=== PATIENT | female | born 1970 ===

== ENCOUNTER 2018-09-08 22:36 | Inpatient (IN) ==
[2018-09-08] MEDS ORDERED: Midazolam Inj 5 MG/ML 1 ML Vial ONE (23:03)
[2018-09-08] MEDS ORDERED: Propofol 1000 mg/100 ml Inj 1,000 MG/100 ML BOTTLE ONE (23:06)
[2018-09-08] MEDS: Propofol 1000 mg/100 ml Inj 1,000 MG/100 ML BOTTLE IV.CONT PRN (23:11)
--- NOTE | 2018-09-08 23:20 | XR ---
EXAM DATE: 09/08/2018 11:14 PM EST AGE/SEX: 89 years / Female INDICATIONS: Post intubation. CLINICAL DATA: This is the patient's initial encounter. Patient reports that signs and symptoms have been present for 1 day and indicates a pain score of Nonresponsive. MEDICAL/SURGICAL HISTORY: Non-responsive. Non-responsive. COMPARISON: . FINDINGS: Single AP view the chest. Endotracheal tube is in place with the tip 3 cm above the rich. Nasogastr ic tube is in place and the tip is below the [id number] of the radiograph. Cardiac silhouette is m arkedly enlarged. The lungs are grossly clear. No evidence of pleural effusion or pneumothorax. CONCLUSION: 1. Markedly enlarged cardiac silhouette. 2. Endotracheal tube and nasogastric tube in place. Electronically signed by: Phillip Camarillo MD 09/08/2018 11:18 PM EST
[2018-09-09] MEDS ORDERED: Succinylcholine Inj 200 MG/10 ML Vial IV.PUSH ONE
[2018-09-09] MEDS ORDERED: Propofol 1000 mg/100 ml Inj 1,000 MG/100 ML BOTTLE IV.CONT PRN
[2018-09-09] MEDS ORDERED: Etomidate Inj 20 MG/10 ML Ampul IV.PUSH ONE
[2018-09-09] MEDS ORDERED: Bisacodyl 10 MG Supp RECTAL PRN (00:05)
--- NOTE | 2018-09-09 00:07 | XR ---
EXAM DATE: 09/08/2018 11:59 PM EST AGE/SEX: 89 years / Female INDICATIONS: Central line placement. CLINICAL DATA: This is the patient's subsequent encounter. Patient reports that signs and symptoms h ave been present for 1 day and indicates a pain score of Nonresponsive. MEDICAL/SURGICAL HISTORY: Non-responsive. Non-responsive. COMPARISON: . FINDINGS: Single AP view the chest. Endotracheal tube and nasogastric tube remain in place. Left subclavian manny tral venous catheter now in place with the tip likely at the junction of the right subclavian vein an d brachiocephalic vein. No evidence of pneumothorax. Enlargement of the cardiac silhouette is again n oted. Perihilar opacity in the left upper lung zone may represent prominent pulmonary vasculature or pulmonary consolidation. No evidence of pneumothorax. CONCLUSION: 1. Right subclavian central venous catheter now in place with the tip at the junction of the subclav tisha vein and brachiocephalic vein. 2. No evidence of pneumothorax. 3. Possible left upper lung perihilar consolidation. 4. Persistent cardiac silhouette enlargement. Electronically signed by: Phillip Camarillo MD 09/09/2018 12:06 AM EST
[2018-09-09 00:11] LABS: ABG Base Excess -8.2 mmol/L (-2-2); ABG PCO2 101 mmHg (38-42); ABG PO2 91 mmHg (61-120)
--- NOTE | 2018-09-09 00:14 | P.HPCC ---
History of Present Illness History of Present Illness: Middle-aged morbidly obese female was brought in emergently department by EMS due to respiratory failure and unresponsiveness. She was brought in being bagged by BVM. Patient was a GCS of 3 upon arrival and hence in no condition to give any history. As per EMS the call went out as shortness of breath while patient got into the car. When they arrived she was in severe respiratory distress. They put her on BiPAP but shortly patient started to lose consciousness with agonal respirations. Family was at the scene and informed EMS that she has history of congestive heart failure. Patient was tachycardic upon arrival with heart rate in 170s. It appeared to be irregularly irregular on the monitor. She was immediately intubated by ED attending with improvement in her heart rate. There is no additional history available. Per report, the family admits the patient has been taking a lot of medications but they are unaware of the names or reasons. Inpatient Certification: I certify that the inpatient services were ordered in accordance with Medicare regulations governing the order. This includes certification that hospital inpatient services are reasonable and necessary and in the case of services not specified as inpatient-only under 42 CFR 419.22(n), that they are appropriately provided as inpatient services in accordance to with the 2-midnight benchmark under 43 CFR 412.3(e) Estimated Total Length of Stay (Days): 5 Plans for Post Hospital Care: Not yet determined Review of Systems unobtainable due to endotracheal tube PMFSH - History History Provided By: Gis Programmer / EMT - Medical / Surgical Hx Neg / Unobtainable Medical Problems Denied: Unable to Obtain Surgical History: Unable to Obtain Medications and Allergies Active Medications: Active Medications Propofol (Diprivan 1000 Mg/100 Ml Inj) 1,000 mg in 100 mls @ 6.804 mls/hr IV.CONT TITRATE PRN; Protocol PRN Reason: Per Protocol Sodium Chloride (Ns Flush) 2 ml IV.FLUSH PRN PRN PRN Reason: FLUSH AFTER USING IV ACCESS Allergies Allergy/AdvReac Type Severity Reaction Status Date / Time No Allergy Information Allergy Unverified 09/08/18 22:46 Available Results - Labs CBC & Chem 7: 09/09/18 00:33 09/09/18 00:33 - Imaging Impressions Chest X-Ray 09/08/18 00:00 CONCLUSION: 1. Markedly enlarged cardiac silhouette. 2. Endotracheal tube and nasogastric tube in place. Chest X-Ray 09/08/18 00:00 CONCLUSION: 1. Right subclavian central venous catheter now in place with the tip at the junction of the subclavian vein and brachiocephalic vein. 2. No evidence of pneumothorax. 3. Possible left upper lung perihilar consolidation. 4. Persistent cardiac silhouette enlargement. Chest CTA 09/09/18 00:00 CONCLUSION: 1. Very limited examination due to patient body habitus. 2. Elongated filling defect in the right pulmonary artery suspicious for pulmonary embolus. Prominent artifact related to patient body habitus is seen through out the central pulmonary arteries limiting the evaluation. The segmental and subsegmental branches cannot be effectively evaluated on this study. Nuclear medicine VQ scan could be performed for further evaluation. 3. Moderate diffuse cardiomegaly. 4. Moderate-sized area of right lower lobe pulmonary consolidation. 5. Bilateral dependent lower lobe atelectasis. Head CT 09/09/18 00:00 CONCLUSION: No acute intracranial findings. . Exam Vital signs: Vital Signs 09/08/18 22:39 09/08/18 22:43 09/08/18 22:47 Pulse Rate 147 H 164 H 100 H Blood Pressure 156/120 H 187/90 H 181/67 H Pulse Oximetry 98 09/08/18 22:52 09/08/18 22:55 09/08/18 23:00 Pulse Rate 134 H 114 H 99 H Blood Pressure 176/76 H 189/81 H 168/67 H Pulse Oximetry 97 86 L 09/08/18 23:12 09/08/18 23:21 09/08/18 23:25 Pulse Rate 112 H 116 H 118 H Blood Pressure 181/73 H 220/107 H 215/77 H Pulse Oximetry 91 L 91 L 92 L 09/08/18 23:27 09/08/18 23:36 Pulse Rate 118 H Blood Pressure 215/85 H 223/94 H Pulse Oximetry 91 L Intake & Output 09/08/18 09/08/18 09/09/18 06:59 18:59 06:59 Weight 226.796 kg - Constitutional severe distress, morbidly obese, somnolent, obtunded - Routine HEENT Exam Head: Present: normocephalic Eye: Present: PERRL ENT: Present: mucous membranes moist - Routine Neck Exam Present: supple. Absent: JVD, carotid bruit - Routine Respiratory Exam Present: patient mechanically ventilated, distant breath sounds - Routine Cardiovascular Exam Present: irregularly irregular - Routine Abdominal Exam Present: soft - Routine Extremities Exam Absent: cyanosis, clubbing - Routine Skin Exam Present: intact. Absent: cyanosis - Routine Neurological Exam Present: altered mental status Septic Shock Reassessment Septic shock perfusion: reassessment completed Caprini VTE Risk Assessment Caprini VTE Risk Assessment: Moderate/High Risk (score >= 2) Caprini Risk Assessment Model: Point Value = 1 Point Value = 2 Point Value = 3 Point Value = 5 Age 41-60 Minor surgery BMI > 25 kg/m2 Swollen legs Varicose veins or History of unexplained or recurrent spontaneous Oral contraceptives or hormone replacement Sepsis (< 1 month) Serious lung disease, including pneumonia (< 1 month) Abnormal pulmonary function Acute myocardial infarction Congestive heart failure (< 1 month) History of inflammatory bowel disease Medical patient at bed rest Age 61-74 Arthroscopic surgery Major open surgery (> 45 min) Laparoscopic surgery (> 45 min) Malignancy Confined to bed (> 72 hours) Immobilizing plaster cast Central venous access Age >= 75 History of VTE Family history of VTE Factor V Leiden Prothrombin [id number] Lupus anticoagulant Anticardiolipin antibodies Elevated serum homocysteine Heparin-induced thrombocytopenia Other congenital or acquired thrombophilia Stroke (< 1 month) Elective arthroplasty Hip, pelvis, or leg fracture Acute spinal cord injury (< 1 month) Prophylaxis Regimen: Total Risk Factor Score Risk Level Prophylaxis Regimen 0-1 Low Early ambulation 2 Moderate Order ONE of the following: *Sequential Compression Device (SCD) *Heparin 5000 units SQ BID 3-4 Higher Order ONE of the following medications: *Heparin 5000 units SQ TID *Enoxaparin/Lovenox 40 mg SQ daily (WT < 150 kg, CrCl > 30 mL/min) *Enoxaparin/Lovenox 30 mg SQ daily (WT < 150 kg, CrCl > 10-29 mL/min) *Enoxaparin/Lovenox 30 mg SQ BID (WT < 150 kg, CrCl > 30 mL/min) AND/OR *Sequential Compression Device (SCD) 5 or more Highest Order ONE of the following medications: *Heparin 5000 units SQ TID (Preferred with Epidurals) *Enoxaparin/Lovenox 40 mg SQ daily (WT < 150 kg, CrCl > 30 mL/min) *Enoxaparin/Lovenox 30 mg SQ daily (WT < 150 kg, CrCl > 10-29 mL/min) *Enoxaparin/Lovenox 30 mg SQ BID (WT < 150 kg, CrCl > 30 mL/min) AND *Sequential Compression Device (SCD) Assessment and Plan - Assessment and Plan Plan: Respiratory failure -Hypercarbic respiratory failure -Severe obesity hypoventilation syndrome -Possible pulmonary embolism -Mechanical ventilation -Vent bundle Pulmonary embolism - Elongated filling defect in the right pulmonary artery suspicious for pulmonary embolus -Heparin drip per pharmacy dosing -Series of troponin -2D echo pending -Hemodynamically stable not a candidate for TPA CHF -Acute on chronic -2D echo -Series of EKGs and troponin Atrial flutter -Heparin drip -Diltiazem drip for rate control Acute kidney injury -Unknown baseline -Strict I's and -Monitor creatinine and electrolyte levels -Avoid nephrotoxins -Gentle IV fluid hydration DVT GI prophylaxis -SCDs -Heparin drip -Pepcid 35 minutes of critical care
--- NOTE | 2018-09-09 00:18 | ED ---
HPI General Chief Complaint: Medical Clearance Stated Complaint: Respiratory Time Seen by Provider: 09/08/18 23:57 Source: EMS Mode of arrival: EMS Limitations: altered mental status History of Present Illness HPI narrative: Patient was brought in emergently by EMS for respiratory distress followed by respiratory failure and unresponsiveness. She was brought in being bagged by BVM. Patient was a GCS of 3 upon arrival and hence in no condition to give any history. As per EMS the call went out as shortness of breath while patient got into the car. When they arrived she was in severe respiratory distress. They put her on BiPAP but shortly patient started to lose consciousness with agonal respirations. Family was at the scene and informed EMS that she has history of congestive heart failure. Patient is morbidly obese. Patient was tachycardic upon arrival with heart rate in 170s. It appeared to be irregularly irregular on the monitor. Related Data Home Medications Medication Instructions Recorded Confirmed allopurinol 100 mg PO DAILY 09/11/18 09/11/18 cyclobenzaprine 5 mg PO TID 09/11/18 09/11/18 furosemide 40 mg PO DAILY 09/11/18 09/11/18 hydralazine 50 mg PO Q8HR 09/11/18 09/11/18 insulin detemir U-100 [Levemir 24 unit SUBCUT Q12HR 09/11/18 09/11/18 U-100 Insulin] insulin regular human [Novolin R 1 sliding scale dose SUBCUT UD 09/11/18 Regular U-100 Insuln] levothyroxine 50 mcg PO DAILY 09/11/18 09/11/18 meloxicam DAILY 09/11/18 potassium chloride 20 meq PO DAILY 09/11/18 09/11/18 pravastatin 40 mg PO HS 09/11/18 09/11/18 pregabalin [Lyrica] 50 mg PO BID 09/11/18 09/11/18 sertraline 50 mg PO HS 09/11/18 09/11/18 tramadol 50 mg PO Q6H PRN 09/11/18 09/11/18 Allergies Allergy/AdvReac Type Severity Reaction Status Date / Time Penicillins Allergy Hives Verified 09/18/18 00:28 lisinopril AdvReac Severe Anaphylaxis Verified 09/18/18 00:28 Review of Systems ROS Unobtainable ROS Unobtainable: unobtainable due to mental status ROS: all other systems reviewed are negative PMFSH History History Provided By: Coffee Supervisor / EMT Medical History Medical History Anxiety (Acute) COPD (chronic obstructive pulmonary disease) (Acute) Chronic pain (Acute) Congestive heart failure (Acute) Depression (Acute) Diabetes (Acute) History of MRSA infection (Acute ~09/09/18) History of cervical cancer (Acute) Hyperlipemia (Acute) Hypertension (Acute) Hypothyroidism (Acute) Morbid obesity with BMI of 60.0-69.9, adult (Acute) Obstructive sleep apnea (Acute) Peripheral neuropathy (Acute) Surgical History Surgical History History of laparoscopic cholecystectomy (Acute) History of partial hysterectomy (Acute) Previous section (Acute) Family History Family History Brother Heart disease Social History Social History Substance History: Active Abuse Smoking Status: Current every day smoker Packs Per Day: 0.5 Cigarettes Per Day: 10.0 How Often Do You Have a Drink Containing Alcohol: Monthly or less Exam Narrative Exam Narrative: GENERAL: Unresponsive, respiratory failure, in extremis, morbidly obese SKIN: Diaphoretic and cool HEAD: Atraumatic. Normocephalic. EYES: Pupils equal and round. Reactive to light bilaterally. No scleral icterus. No injection or drainage. ENT: No nasal bleeding or discharge. Mucous membranes pink and moist. NECK: Trachea midline. No JVD. CARDIOVASCULAR: Regular rate and rhythm. No murmur appreciated. RESPIRATORY: Diminished air entry bilaterally, extremely hard to auscultate given the chest wall thickness GASTROINTESTINAL: Abdomen soft, non-tender, nondistended. Hepatic and splenic margins not palpable. MUSCULOSKELETAL: No obvious deformities. No clubbing. No cyanosis. No edema. NEUROLOGICAL: GCS of 3 PSYCHIATRIC: Unable to assess Course Initial Documented Vital Signs Pulse Rate 170 H 09/08/18 22:37 Last Documented Vital Signs Temperature 98.0 F 09/21/18 16:00 Pulse Rate 89 09/21/18 18:00 Respiratory Rate 16 09/21/18 16:00 Blood Pressure 149/55 H 09/21/18 16:00 Pulse Oximetry 100 09/21/18 16:00 Procedures Cardioversion 1: Time out performed cardioversion: Yes Consent: Emergent Anesthesia: None Joules: 200 Outcome: Return to Sinus Rhythm Complications: none Central Line Placement Right SC: Time Out Performed: Yes Patient Placed on Monitor/Pulse Ox: Yes MD Prep: mask, gown and gloves Central Line Prep: Chlorhexidine scrub Local anesthesia used: lidocaine 1% Amount of anesthesia used (mL): 5 Ultrasound Used for Placement: No Central Line Lumen Inserted: triple Complications: none Additional Comments: Central line was placed at the third attempt. It was an extremely difficult placement given her massive body habitus. IO Left Tibia: Time Out Performed: Yes Anesthetic used: none IO Instrument Used to Penetrate the Cortex: battery powered IO drill Patient Tolerated Procedure: other (GCS of 3) Complications: none Critical Care Time Critical Care Time: Yes Total Critical Care Time: 75 Attestation: Aggregate critical care time was 75 minutes. Time to perform other separately billable procedures was not included in the critical care time. My time did not include minutes spent treating any other patients simultaneously or on activities that did not directly contribute to the patient's treatment. The services I provided to this patient were to treat and/or prevent clinically significant deterioration that could result in: Respiratory failure, ventilator management, central line placement I provided critical care services requiring my management, as noted below: Chart data review, documentation time, medication orders and management, vital sign assessments/reviewing monitor data, ordering and reviewing lab tests, ordering and interpreting/reviewing x-rays and diagnostic studies, care of the patient and discussion of the patient with the admitting physicians. Medical Decision Making MDM Narrative Medical decision making narrative: 12:11 AM patient was intubated soon after arrival with RSI. Please refer to my procedure note. Patient had poor peripheral line in spite of multiple tries by the nurses. I initially put an IO and an amp of bicarb was given given her prolonged hypoxia. This was followed by multiple attempts for central line and eventually right subclavian was obtained. X-ray confirmed good placement of ET tube, OG tube and right subclavian. Patient is over at the CT to get a CT head and CT pulmonary angiogram. Blood tests results are pending. Security Architect Dr. Tate is in the ER and patient has been admitted to him. Initial blood gas shows significant respiratory acidosis. Ventilator setting changes had been done. I will discuss with the family shortly about patient's condition and the plan. Patient is any critical condition. Her initial rhythm was A. fib/flutter with RVR. Given this I had decided to cardiovert her. However patient quickly changed to normal sinus rhythm spontaneously. Medical Screen Exam Complete: Yes Emergency Medical Condition: Yes Lab Data Result diagrams: 09/21/18 03:13 09/21/18 03:13 Lab Results 09/09/18 09/09/18 09/09/18 Range/Units 00:30 00:33 00:33 WBC 15.4 H (4.0-11.0) th/mm3 RBC 4.85 (4.00-5.30) mil/mm3 Hgb 12.9 (11.6-15.3) gm/dL Hct 41.3 (35.0-46.0) % MCV 85.2 (80.0-100.0) fL MCH 26.5 L (27.0-34.0) pg MCHC 31.1 L (32.0-36.0) % RDW 17.6 H (11.6-17.2) % Plt Count 348 (150-450) th/mm3 MPV 8.0 (7.0-11.0) fL Prelim Diff (Auto) Neut % (Auto) 84.9 H (16.0-70.0) % Lymph % (Auto) 12.3 (9.0-44.0) % Loving % (Auto) 2.1 (0.0-8.0) % Eos % (Auto) 0.4 (0.0-4.0) % Baso % (Auto) 0.3 (0.0-2.0) % Neut # (Auto) 13.1 H (1.8-7.7) th/mm3 Lymph # (Auto) 1.9 (1.0-4.8) th/mm3 Loving # (Auto) 0.3 (0.0-0.9) th/mm3 Eos # (Auto) 0.1 (0.0-0.4) th/mm3 Baso # (Auto) 0.0 (0.0-0.2) th/mm3 WBC Differential . Diff Scan Differential Comment Auto diff final Platelet Estimate (Normal) Platelet Morphology (Normal) PT 10.7 (9.8-11.6) sec INR 1.1 Ratio APTT (23.4-31.7) sec Puncture Site Patient Temperature O2 Saturation (90-100) % ABG pH (7.380-7.420) ABG pCO2 (38-42) mmHg ABG pO2 (61-120) mmHG ABG HCO3 (22-26) mmol/L ABG O2 Content (12.0-20.0) Vol % ABG Base Excess (-2-2) mmol/L ABG Methemoglobin (0-2) % Gabe Test Hemoglobin (12.0-16.0) G/DL Carboxyhemoglobin (0-4) % O2 Delivery Device Vent Setting Inspired O2 % Critical Value Sodium (136-145) meq/L Potassium (3.5-5.1) meq/L Chloride (98-107) meq/L Carbon Dioxide (21.0-32.0) meq/L Anion Gap (5-15) meq/L BUN (7-18) mg/dL Creatinine (0.50-1.00) mg/dL Estimated GFR (>89) mL/min POC Glucose (68-110) mg/dl Random Glucose (74-106) mg/dL Calcium (8.5-10.1) mg/dL Phosphorus (2.5-4.9) mg/dL Magnesium (1.5-2.5) mg/dL Total Bilirubin (0.2-1.0) mg/dL AST (15-37) U/L ALT (10-53) U/L Alkaline Phosphatase (45-117) U/L Ammonia (11-32) mcmol/L Troponin I (0.02-0.05) ng/mL Total Protein (6.4-8.2) g/dL Albumin (3.4-5.0) g/dL Urine Color (Yellw/Straw) Urine Clarity (Clear) Urine pH (5.0-8.5) Ur Specific [place] (1.002-1.035) Urine Protein (Neg-Trace) mg/dL Urine Glucose (UA) (Negative) mg/dL Urine Ketones (Negative) mg/dL Urine Occult Blood (Negative) Urine Nitrate (Negative) Urine Bilirubin (Negative) Urine Urobilinogen (Less than 2) mg/dL Ur Leukocyte Esterase (Negative) Urine RBC (0-3) /hpf Urine WBC (0-5) /hpf Ur Squamous Epith Cells (0-5) /hpf Urine Bacteria (None) /hpf Micro UA Comment Ur Microscopic Review Urine Culture Comments Nasal Screen MRSA (PCR) (Negative) Random Vancomycin Comment Urine Opiates Screen (Neg) Ur Barbiturates Screen (Neg) Ur Amphetamines Screen (Neg) U Benzodiazepines Scrn (Neg) Urine Cocaine Screen (Neg) U Cannabinoids Screen (Neg) Hepatitis A IgM Ab (Nonreactive) Hep Bs Antigen (Nonreactive) Hep B Core IgM Ab (Nonreactive) Hep C IgG Ab (Nonreactive) Blood Type AB Positive Antibody Screen Negative 09/09/18 09/09/18 09/09/18 Range/Units 00:33 00:33 00:37 WBC (4.0-11.0) th/mm3 RBC (4.00-5.30) mil/mm3 Hgb (11.6-15.3) gm/dL Hct (35.0-46.0) % MCV (80.0-100.0) fL MCH (27.0-34.0) pg MCHC (32.0-36.0) % RDW (11.6-17.2) % Plt Count (150-450) th/mm3 MPV (7.0-11.0) fL Prelim Diff (Auto) Neut % (Auto) (16.0-70.0) % Lymph % (Auto) (9.0-44.0) % Loving % (Auto) (0.0-8.0) % Eos % (Auto) (0.0-4.0) % Baso % (Auto) (0.0-2.0) % Neut # (Auto) (1.8-7.7) th/mm3 Lymph # (Auto) (1.0-4.8) th/mm3 Loving # (Auto) (0.0-0.9) th/mm3 Eos # (Auto) (0.0-0.4) th/mm3 Baso # (Auto) (0.0-0.2) th/mm3 WBC Differential Diff Scan Differential Comment Platelet Estimate (Normal) Platelet Morphology (Normal) PT (9.8-11.6) sec INR Ratio APTT (23.4-31.7) sec Puncture Site Patient Temperature O2 Saturation (90-100) % ABG pH (7.380-7.420) ABG pCO2 (38-42) mmHg ABG pO2 (61-120) mmHG ABG HCO3 (22-26) mmol/L ABG O2 Content (12.0-20.0) Vol % ABG Base Excess (-2-2) mmol/L ABG Methemoglobin (0-2) % Gabe Test Hemoglobin (12.0-16.0) G/DL Carboxyhemoglobin (0-4) % O2 Delivery Device Vent Setting Inspired O2 % Critical Value Sodium 143 (136-145) meq/L Potassium 4.0 (3.5-5.1) meq/L Chloride 104 (98-107) meq/L Carbon Dioxide 26.7 (21.0-32.0) meq/L Anion Gap 12 (5-15) meq/L BUN 21 H (7-18) mg/dL Creatinine 2.05 H (0.50-1.00) mg/dL Estimated GFR 21 L (>89) mL/min POC Glucose (68-110) mg/dl Random Glucose 320 H (74-106) mg/dL Calcium 7.5 L (8.5-10.1) mg/dL Phosphorus (2.5-4.9) mg/dL Magnesium 2.0 (1.5-2.5) mg/dL Total Bilirubin 0.4 (0.2-1.0) mg/dL AST 162 H (15-37) U/L ALT 116 H (10-53) U/L Alkaline Phosphatase 182 H (45-117) U/L Ammonia 77 H (11-32) mcmol/L Troponin I 0.22 H (0.02-0.05) ng/mL Total Protein 7.7 (6.4-8.2) g/dL Albumin 3.2 L (3.4-5.0) g/dL Urine Color (Yellw/Straw) Urine Clarity (Clear) Urine pH (5.0-8.5) Ur Specific [place] (1.002-1.035) Urine Protein (Neg-Trace) mg/dL Urine Glucose (UA) (Negative) mg/dL Urine Ketones (Negative) mg/dL Urine Occult Blood (Negative) Urine Nitrate (Negative) Urine Bilirubin (Negative) Urine Urobilinogen (Less than 2) mg/dL Ur Leukocyte Esterase (Negative) Urine RBC (0-3) /hpf Urine WBC (0-5) /hpf Ur Squamous Epith Cells (0-5) /hpf Urine Bacteria (None) /hpf Micro UA Comment Ur Microscopic Review Urine Culture Comments Nasal Screen MRSA (PCR) (Negative) Random Vancomycin Comment Urine Opiates Screen Neg (Neg) Ur Barbiturates Screen Neg (Neg) Ur Amphetamines Screen Neg (Neg) U Benzodiazepines Scrn Neg (Neg) Urine Cocaine Screen Pos H (Neg) U Cannabinoids Screen Neg (Neg) Hepatitis A IgM Ab (Nonreactive) Hep Bs Antigen (Nonreactive) Hep B Core IgM Ab (Nonreactive) Hep C IgG Ab (Nonreactive) Blood Type Antibody Screen 09/09/18 09/09/18 09/09/18 Range/Units 00:37 01:30 02:00 WBC (4.0-11.0) th/mm3 RBC (4.00-5.30) mil/mm3 Hgb (11.6-15.3) gm/dL Hct (35.0-46.0) % MCV (80.0-100.0) fL MCH (27.0-34.0) pg MCHC (32.0-36.0) % RDW (11.6-17.2) % Plt Count (150-450) th/mm3 MPV (7.0-11.0) fL Prelim Diff (Auto) Neut % (Auto) (16.0-70.0) % Lymph % (Auto) (9.0-44.0) % Loving % (Auto) (0.0-8.0) % Eos % (Auto) (0.0-4.0) % Baso % (Auto) (0.0-2.0) % Neut # (Auto) (1.8-7.7) th/mm3 Lymph # (Auto) (1.0-4.8) th/mm3 Loving # (Auto) (0.0-0.9) th/mm3 Eos # (Auto) (0.0-0.4) th/mm3 Baso # (Auto) (0.0-0.2) th/mm3 WBC Differential Diff Scan Differential Comment Platelet Estimate (Normal) Platelet Morphology (Normal) PT (9.8-11.6) sec INR Ratio APTT (23.4-31.7) sec Puncture Site Left radial Patient Temperature 98.6 O2 Saturation 97 (90-100) % ABG pH 7.33 L (7.380-7.420) ABG pCO2 44 H (38-42) mmHg ABG pO2 271 H (61-120) mmHG ABG HCO3 23 (22-26) mmol/L ABG O2 Content 16.7 (12.0-20.0) Vol % ABG Base Excess -2.6 L (-2-2) mmol/L ABG Methemoglobin 1.7 (0-2) % Gabe Test Present Hemoglobin 11.8 L (12.0-16.0) G/DL Carboxyhemoglobin 0.8 (0-4) % O2 Delivery Device Ventilator Vent Setting 24/[id number]/it1.0 Inspired O2 100 % Critical Value No Sodium (136-145) meq/L Potassium (3.5-5.1) meq/L Chloride (98-107) meq/L Carbon Dioxide (21.0-32.0) meq/L Anion Gap (5-15) meq/L BUN (7-18) mg/dL Creatinine (0.50-1.00) mg/dL Estimated GFR (>89) mL/min POC Glucose (68-110) mg/dl Random Glucose (74-106) mg/dL Calcium (8.5-10.1) mg/dL Phosphorus (2.5-4.9) mg/dL Magnesium (1.5-2.5) mg/dL Total Bilirubin (0.2-1.0) mg/dL AST (15-37) U/L ALT (10-53) U/L Alkaline Phosphatase (45-117) U/L Ammonia (11-32) mcmol/L Troponin I (0.02-0.05) ng/mL Total Protein (6.4-8.2) g/dL Albumin (3.4-5.0) g/dL Urine Color Yellow (Yellw/Straw) Urine Clarity Clear (Clear) Urine pH 5.0 (5.0-8.5) Ur Specific [place] 1.016 (1.002-1.035) Urine Protein 100 H (Neg-Trace) mg/dL Urine Glucose (UA) Negative (Negative) mg/dL Urine Ketones Negative (Negative) mg/dL Urine Occult Blood Negative (Negative) Urine Nitrate Negative (Negative) Urine Bilirubin Negative (Negative) Urine Urobilinogen Less than 2 (Less than 2) mg/dL Ur Leukocyte Esterase Negative (Negative) Urine RBC 1 (0-3) /hpf Urine WBC 1 (0-5) /hpf Ur Squamous Epith Cells 1 (0-5) /hpf Urine Bacteria Rare H (None) /hpf Micro UA Comment Cath-culture ind Ur Microscopic Review Not Reportable Urine Culture Comments Cath-cult indicated Nasal Screen MRSA (PCR) Mrsa detected (Negative) Random Vancomycin Comment Urine Opiates Screen (Neg) Ur Barbiturates Screen (Neg) Ur Amphetamines Screen (Neg) U Benzodiazepines Scrn (Neg) Urine Cocaine Screen (Neg) U Cannabinoids Screen (Neg) Hepatitis A IgM Ab (Nonreactive) Hep Bs Antigen (Nonreactive) Hep B Core IgM Ab (Nonreactive) Hep C IgG Ab (Nonreactive) Blood Type Antibody Screen 09/09/18 09/09/18 09/09/18 Range/Units 03:50 06:20 08:52 WBC (4.0-11.0) th/mm3 RBC (4.00-5.30) mil/mm3 Hgb (11.6-15.3) gm/dL Hct (35.0-46.0) % MCV (80.0-100.0) fL MCH (27.0-34.0) pg MCHC (32.0-36.0) % RDW (11.6-17.2) % Plt Count (150-450) th/mm3 MPV (7.0-11.0) fL Prelim Diff (Auto) Neut % (Auto) (16.0-70.0) % Lymph % (Auto) (9.0-44.0) % Loving % (Auto) (0.0-8.0) % Eos % (Auto) (0.0-4.0) % Baso % (Auto) (0.0-2.0) % Neut # (Auto) (1.8-7.7) th/mm3 Lymph # (Auto) (1.0-4.8) th/mm3 Loving # (Auto) (0.0-0.9) th/mm3 Eos # (Auto) (0.0-0.4) th/mm3 Baso # (Auto) (0.0-0.2) th/mm3 WBC Differential Diff Scan Differential Comment Platelet Estimate (Normal) Platelet Morphology (Normal) PT (9.8-11.6) sec INR Ratio APTT 29.6 (23.4-31.7) sec Puncture Site Right radial Patient Temperature 98.6 O2 Saturation 93 (90-100) % ABG pH 7.55 H* (7.380-7.420) ABG pCO2 28 L (38-42) mmHg ABG pO2 65 (61-120) mmHG ABG HCO3 24 (22-26) mmol/L ABG O2 Content 15.3 (12.0-20.0) Vol % ABG Base Excess 1.8 (-2-2) mmol/L ABG Methemoglobin 1.5 (0-2) % Gabe Test Present Hemoglobin 11.8 L (12.0-16.0) G/DL Carboxyhemoglobin 1.2 (0-4) % O2 Delivery Device Ventilator Vent Setting Inspired O2 40 % Critical Value Yes Sodium (136-145) meq/L Potassium (3.5-5.1) meq/L Chloride (98-107) meq/L Carbon Dioxide (21.0-32.0) meq/L Anion Gap (5-15) meq/L BUN (7-18) mg/dL Creatinine (0.50-1.00) mg/dL Estimated GFR (>89) mL/min POC Glucose (68-110) mg/dl Random Glucose (74-106) mg/dL Calcium (8.5-10.1) mg/dL Phosphorus (2.5-4.9) mg/dL Magnesium (1.5-2.5) mg/dL Total Bilirubin (0.2-1.0) mg/dL AST (15-37) U/L ALT (10-53) U/L Alkaline Phosphatase (45-117) U/L Ammonia (11-32) mcmol/L Troponin I 0.33 H D (0.02-0.05) ng/mL Total Protein (6.4-8.2) g/dL Albumin (3.4-5.0) g/dL Urine Color (Yellw/Straw) Urine Clarity (Clear) Urine pH (5.0-8.5) Ur Specific [place] (1.002-1.035) Urine Protein (Neg-Trace) mg/dL Urine Glucose (UA) (Negative) mg/dL Urine Ketones (Negative) mg/dL Urine Occult Blood (Negative) Urine Nitrate (Negative) Urine Bilirubin (Negative) Urine Urobilinogen (Less than 2) mg/dL Ur Leukocyte Esterase (Negative) Urine RBC (0-3) /hpf Urine WBC (0-5) /hpf Ur Squamous Epith Cells (0-5) /hpf Urine Bacteria (None) /hpf Micro UA Comment Ur Microscopic Review Urine Culture Comments Nasal Screen MRSA (PCR) (Negative) Random Vancomycin Comment Urine Opiates Screen (Neg) Ur Barbiturates Screen (Neg) Ur Amphetamines Screen (Neg) U Benzodiazepines Scrn (Neg) Urine Cocaine Screen (Neg) U Cannabinoids Screen (Neg) Hepatitis A IgM Ab (Nonreactive) Hep Bs Antigen (Nonreactive) Hep B Core IgM Ab (Nonreactive) Hep C IgG Ab (Nonreactive) Blood Type Antibody Screen 09/09/18 09/09/18 09/09/18 Range/Units 09:20 09:20 10:35 WBC 7.3 D (4.0-11.0) th/mm3 RBC 4.41 (4.00-5.30) mil/mm3 Hgb 11.6 (11.6-15.3) gm/dL Hct 37.0 (35.0-46.0) % MCV 83.9 (80.0-100.0) fL MCH 26.3 L (27.0-34.0) pg MCHC 31.4 L (32.0-36.0) % RDW 17.3 H (11.6-17.2) % Plt Count 264 (150-450) th/mm3 MPV 8.1 (7.0-11.0) fL Prelim Diff (Auto) Neut % (Auto) 81.0 H (16.0-70.0) % Lymph % (Auto) 12.8 (9.0-44.0) % Loving % (Auto) 5.7 (0.0-8.0) % Eos % (Auto) 0.2 (0.0-4.0) % Baso % (Auto) 0.3 (0.0-2.0) % Neut # (Auto) 5.9 (1.8-7.7) th/mm3 Lymph # (Auto) 0.9 L (1.0-4.8) th/mm3 Loving # (Auto) 0.4 (0.0-0.9) th/mm3 Eos # (Auto) 0.0 (0.0-0.4) th/mm3 Baso # (Auto) 0.0 (0.0-0.2) th/mm3 WBC Differential . Diff Scan Differential Comment Auto diff final Platelet Estimate (Normal) Platelet Morphology (Normal) PT (9.8-11.6) sec INR Ratio APTT (23.4-31.7) sec Puncture Site Patient Temperature O2 Saturation (90-100) % ABG pH (7.380-7.420) ABG pCO2 (38-42) mmHg ABG pO2 (61-120) mmHG ABG HCO3 (22-26) mmol/L ABG O2 Content (12.0-20.0) Vol % ABG Base Excess (-2-2) mmol/L ABG Methemoglobin (0-2) % Gabe Test Hemoglobin (12.0-16.0) G/DL Carboxyhemoglobin (0-4) % O2 Delivery Device Vent Setting Inspired O2 % Critical Value Sodium 144 (136-145) meq/L Potassium 3.1 L D (3.5-5.1) meq/L Chloride 105 (98-107) meq/L Carbon Dioxide 27.2 (21.0-32.0) meq/L Anion Gap 12 (5-15) meq/L BUN 29 H (7-18) mg/dL Creatinine 2.60 H (0.50-1.00) mg/dL Estimated GFR 20 L (>89) mL/min POC Glucose (68-110) mg/dl Random Glucose 166 H D (74-106) mg/dL Calcium 7.7 L (8.5-10.1) mg/dL Phosphorus 2.8 (2.5-4.9) mg/dL Magnesium 1.7 (1.5-2.5) mg/dL Total Bilirubin 0.4 (0.2-1.0) mg/dL AST 128 H (15-37) U/L ALT 95 H (10-53) U/L Alkaline Phosphatase 137 H (45-117) U/L Ammonia (11-32) mcmol/L Troponin I (0.02-0.05) ng/mL Total Protein 6.6 D (6.4-8.2) g/dL Albumin 2.7 L (3.4-5.0) g/dL Urine Color (Yellw/Straw) Urine Clarity (Clear) Urine pH (5.0-8.5) Ur Specific [place] (1.002-1.035) Urine Protein (Neg-Trace) mg/dL Urine Glucose (UA) (Negative) mg/dL Urine Ketones (Negative) mg/dL Urine Occult Blood (Negative) Urine Nitrate (Negative) Urine Bilirubin (Negative) Urine Urobilinogen (Less than 2) mg/dL Ur Leukocyte Esterase (Negative) Urine RBC (0-3) /hpf Urine WBC (0-5) /hpf Ur Squamous Epith Cells (0-5) /hpf Urine Bacteria (None) /hpf Micro UA Comment Ur Microscopic Review Urine Culture Comments Nasal Screen MRSA (PCR) (Negative) Random Vancomycin Comment Urine Opiates Screen (Neg) Ur Barbiturates Screen (Neg) Ur Amphetamines Screen (Neg) U Benzodiazepines Scrn (Neg) Urine Cocaine Screen (Neg) U Cannabinoids Screen (Neg) Hepatitis A IgM Ab Nonreactive (Nonreactive) Hep Bs Antigen Nonreactive (Nonreactive) Hep B Core IgM Ab Nonreactive (Nonreactive) Hep C IgG Ab Nonreactive (Nonreactive) Blood Type Antibody Screen 09/09/18 09/09/18 09/09/18 Range/Units 11:50 12:08 12:08 WBC (4.0-11.0) th/mm3 RBC (4.00-5.30) mil/mm3 Hgb (11.6-15.3) gm/dL Hct (35.0-46.0) % MCV (80.0-100.0) fL MCH (27.0-34.0) pg MCHC (32.0-36.0) % RDW (11.6-17.2) % Plt Count (150-450) th/mm3 MPV (7.0-11.0) fL Prelim Diff (Auto) Neut % (Auto) (16.0-70.0) % Lymph % (Auto) (9.0-44.0) % Loving % (Auto) (0.0-8.0) % Eos % (Auto) (0.0-4.0) % Baso % (Auto) (0.0-2.0) % Neut # (Auto) (1.8-7.7) th/mm3 Lymph # (Auto) (1.0-4.8) th/mm3 Loving # (Auto) (0.0-0.9) th/mm3 Eos # (Auto) (0.0-0.4) th/mm3 Baso # (Auto) (0.0-0.2) th/mm3 WBC Differential Diff Scan Differential Comment Platelet Estimate (Normal) Platelet Morphology (Normal) PT (9.8-11.6) sec INR Ratio APTT (23.4-31.7) sec Puncture Site Patient Temperature O2 Saturation (90-100) % ABG pH (7.380-7.420) ABG pCO2 (38-42) mmHg ABG pO2 (61-120) mmHG ABG HCO3 (22-26) mmol/L ABG O2 Content (12.0-20.0) Vol % ABG Base Excess (-2-2) mmol/L ABG Methemoglobin (0-2) % Gabe Test Hemoglobin (12.0-16.0) G/DL Carboxyhemoglobin (0-4) % O2 Delivery Device Vent Setting Inspired O2 % Critical Value Sodium (136-145) meq/L Potassium (3.5-5.1) meq/L Chloride (98-107) meq/L Carbon Dioxide (21.0-32.0) meq/L Anion Gap (5-15) meq/L BUN (7-18) mg/dL Creatinine (0.50-1.00) mg/dL Estimated GFR (>89) mL/min POC Glucose 155 H (68-110) mg/dl Random Glucose (74-106) mg/dL Calcium (8.5-10.1) mg/dL Phosphorus (2.5-4.9) mg/dL Magnesium (1.5-2.5) mg/dL Total Bilirubin (0.2-1.0) mg/dL AST (15-37) U/L ALT (10-53) U/L Alkaline Phosphatase (45-117) U/L Ammonia (11-32) mcmol/L Troponin I Cancelled 0.38 H (0.02-0.05) ng/mL Total Protein (6.4-8.2) g/dL Albumin (3.4-5.0) g/dL Urine Color (Yellw/Straw) Urine Clarity (Clear) Urine pH (5.0-8.5) Ur Specific [place] (1.002-1.035) Urine Protein (Neg-Trace) mg/dL Urine Glucose (UA) (Negative) mg/dL Urine Ketones (Negative) mg/dL Urine Occult Blood (Negative) Urine Nitrate (Negative) Urine Bilirubin (Negative) Urine Urobilinogen (Less than 2) mg/dL Ur Leukocyte Esterase (Negative) Urine RBC (0-3) /hpf Urine WBC (0-5) /hpf Ur Squamous Epith Cells (0-5) /hpf Urine Bacteria (None) /hpf Micro UA Comment Ur Microscopic Review Urine Culture Comments Nasal Screen MRSA (PCR) (Negative) Random Vancomycin Comment Urine Opiates Screen (Neg) Ur Barbiturates Screen (Neg) Ur Amphetamines Screen (Neg) U Benzodiazepines Scrn (Neg) Urine Cocaine Screen (Neg) U Cannabinoids Screen (Neg) Hepatitis A IgM Ab (Nonreactive) Hep Bs Antigen (Nonreactive) Hep B Core IgM Ab (Nonreactive) Hep C IgG Ab (Nonreactive) Blood Type Antibody Screen 09/09/18 09/09/18 09/09/18 Range/Units 12:44 14:55 15:20 WBC (4.0-11.0) th/mm3 RBC (4.00-5.30) mil/mm3 Hgb (11.6-15.3) gm/dL Hct (35.0-46.0) % MCV (80.0-100.0) fL MCH (27.0-34.0) pg MCHC (32.0-36.0) % RDW (11.6-17.2) % Plt Count (150-450) th/mm3 MPV (7.0-11.0) fL Prelim Diff (Auto) Neut % (Auto) (16.0-70.0) % Lymph % (Auto) (9.0-44.0) % L[place] % (Auto) (0.0-8.0) % Eos % (Auto) (0.0-4.0) % Baso % (Auto) (0.0-2.0) % Neut # (Auto) (1.8-7.7) th/mm3 Lymph # (Auto) (1.0-4.8) th/mm3 Loving # (Auto) (0.0-0.9) th/mm3 Eos # (Auto) (0.0-0.4) th/mm3 Baso # (Auto) (0.0-0.2) th/mm3 WBC Differential Diff Scan Differential Comment Platelet Estimate (Normal) Platelet Morphology (Normal) PT (9.8-11.6) sec INR Ratio APTT 185.1 H* D 90.6 H* D (23.4-31.7) sec Puncture Site Patient Temperature O2 Saturation (90-100) % ABG pH (7.380-7.420) ABG pCO2 (38-42) mmHg ABG pO2 (61-120) mmHG ABG HCO3 (22-26) mmol/L ABG O2 Content (12.0-20.0) Vol % ABG Base Excess (-2-2) mmol/L ABG Methemoglobin (0-2) % Gabe Test Hemoglobin (12.0-16.0) G/DL Carboxyhemoglobin (0-4) % O2 Delivery Device Vent Setting Inspired O2 % Critical Value Sodium (136-145) meq/L Potassium (3.5-5.1) meq/L Chloride (98-107) meq/L Carbon Dioxide (21.0-32.0) meq/L Anion Gap (5-15) meq/L BUN (7-18) mg/dL Creatinine (0.50-1.00) mg/dL Estimated GFR (>89) mL/min POC Glucose 111 H (68-110) mg/dl Random Glucose (74-106) mg/dL Calcium (8.5-10.1) mg/dL Phosphorus (2.5-4.9) mg/dL Magnesium (1.5-2.5) mg/dL Total Bilirubin (0.2-1.0) mg/dL AST (15-37) U/L ALT (10-53) U/L Alkaline Phosphatase (45-117) U/L Ammonia (11-32) mcmol/L Troponin I (0.02-0.05) ng/mL Total Protein (6.4-8.2) g/dL Albumin (3.4-5.0) g/dL Urine Color (Yellw/Straw) Urine Clarity (Clear) Urine pH (5.0-8.5) Ur Specific [place] (1.002-1.035) Urine Protein (Neg-Trace) mg/dL Urine Glucose (UA) (Negative) mg/dL Urine Ketones (Negative) mg/dL Urine Occult Blood (Negative) Urine Nitrate (Negative) Urine Bilirubin (Negative) Urine Urobilinogen (Less than 2) mg/dL Ur Leukocyte Esterase (Negative) Urine RBC (0-3) /hpf Urine WBC (0-5) /hpf Ur Squamous Epith Cells (0-5) /hpf Urine Bacteria (None) /hpf Micro UA Comment Ur Microscopic Review Urine Culture Comments Nasal Screen MRSA (PCR) (Negative) Random Vancomycin Comment Urine Opiates Screen (Neg) Ur Barbiturates Screen (Neg) Ur Amphetamines Screen (Neg) U Benzodiazepines Scrn (Neg) Urine Cocaine Screen (Neg) U Cannabinoids Screen (Neg) Hepatitis A IgM Ab (Nonreactive) Hep Bs Antigen (Nonreactive) Hep B Core IgM Ab (Nonreactive) Hep C IgG Ab (Nonreactive) Blood Type Antibody Screen 09/09/18 09/09/18 09/09/18 Range/Units 20:11 22:20 23:51 WBC (4.0-11.0) th/mm3 RBC (4.00-5.30) mil/mm3 Hgb (11.6-15.3) gm/dL Hct (35.0-46.0) % MCV (80.0-100.0) fL MCH (27.0-34.0) pg MCHC (32.0-36.0) % RDW (11.6-17.2) % Plt Count (150-450) th/mm3 MPV (7.0-11.0) fL Prelim Diff (Auto) Neut % (Auto) (16.0-70.0) % Lymph % (Auto) (9.0-44.0) % Loving % (Auto) (0.0-8.0) % Eos % (Auto) (0.0-4.0) % Baso % (Auto) (0.0-2.0) % Neut # (Auto) (1.8-7.7) th/mm3 Lymph # (Auto) (1.0-4.8) th/mm3 Loving # (Auto) (0.0-0.9) th/mm3 Eos # (Auto) (0.0-0.4) th/mm3 Baso # (Auto) (0.0-0.2) th/mm3 WBC Differential Diff Scan Differential Comment Platelet Estimate (Normal) Platelet Morphology (Normal) PT (9.8-11.6) sec INR Ratio APTT 91.6 H* (23.4-31.7) sec Puncture Site Left radial Patient Temperature 98.6 O2 Saturation 89 L* (90-100) % ABG pH 6.97 L* (7.380-7.420) ABG pCO2 101 H* (38-42) mmHg ABG pO2 91 (61-120) mmHG ABG HCO3 22 (22-26) mmol/L ABG O2 Content 15.9 (12.0-20.0) Vol % ABG Base Excess -8.2 L (-2-2) mmol/L ABG Methemoglobin 0.6 (0-2) % Gabe Test Present Hemoglobin 12.6 (12.0-16.0) G/DL Carboxyhemoglobin 0.3 (0-4) % O2 Delivery Device Vent Vent Setting See comments Inspired O2 100 % Critical Value Yes Sodium (136-145) meq/L Potassium (3.5-5.1) meq/L Chloride (98-107) meq/L Carbon Dioxide (21.0-32.0) meq/L Anion Gap (5-15) meq/L BUN (7-18) mg/dL Creatinine (0.50-1.00) mg/dL Estimated GFR (>89) mL/min POC Glucose 141 H (68-110) mg/dl Random Glucose (74-106) mg/dL Calcium (8.5-10.1) mg/dL Phosphorus (2.5-4.9) mg/dL Magnesium (1.5-2.5) mg/dL Total Bilirubin (0.2-1.0) mg/dL AST (15-37) U/L ALT (10-53) U/L Alkaline Phosphatase (45-117) U/L Ammonia (11-32) mcmol/L Troponin I (0.02-0.05) ng/mL Total Protein (6.4-8.2) g/dL Albumin (3.4-5.0) g/dL Urine Color (Yellw/Straw) Urine Clarity (Clear) Urine pH (5.0-8.5) Ur Specific [place] (1.002-1.035) Urine Protein (Neg-Trace) mg/dL Urine Glucose (UA) (Negative) mg/dL Urine Ketones (Negative) mg/dL Urine Occult Blood (Negative) Urine Nitrate (Negative) Urine Bilirubin (Negative) Urine Urobilinogen (Less than 2) mg/dL Ur Leukocyte Esterase (Negative) Urine RBC (0-3) /hpf Urine WBC (0-5) /hpf Ur Squamous Epith Cells (0-5) /hpf Urine Bacteria (None) /hpf Micro UA Comment Ur Microscopic Review Urine Culture Comments Nasal Screen MRSA (PCR) (Negative) Random Vancomycin Comment Urine Opiates Screen (Neg) Ur Barbiturates Screen (Neg) Ur Amphetamines Screen (Neg) U Benzodiazepines Scrn (Neg) Urine Cocaine Screen (Neg) U Cannabinoids Screen (Neg) Hepatitis A IgM Ab (Nonreactive) Hep Bs Antigen (Nonreactive) Hep B Core IgM Ab (Nonreactive) Hep C IgG Ab (Nonreactive) Blood Type Antibody Screen 09/10/18 09/10/18 09/10/18 Range/Units 00:14 01:00 04:05 WBC 6.3 (4.0-11.0) th/mm3 RBC 4.34 (4.00-5.30) mil/mm3 Hgb 11.5 L (11.6-15.3) gm/dL Hct 35.3 (35.0-46.0) % MCV 81.4 (80.0-100.0) fL MCH 26.4 L (27.0-34.0) pg MCHC 32.4 (32.0-36.0) % RDW 17.8 H (11.6-17.2) % Plt Count 265 (150-450) th/mm3 MPV 8.3 (7.0-11.0) fL Prelim Diff (Auto) Neut % (Auto) 49.2 (16.0-70.0) % Lymph % (Auto) 36.4 (9.0-44.0) % Loving % (Auto) 10.3 H (0.0-8.0) % Eos % (Auto) 3.5 (0.0-4.0) % Baso % (Auto) 0.6 (0.0-2.0) % Neut # (Auto) 3.1 (1.8-7.7) th/mm3 Lymph # (Auto) 2.3 (1.0-4.8) th/mm3 Loving # (Auto) 0.6 (0.0-0.9) th/mm3 Eos # (Auto) 0.2 (0.0-0.4) th/mm3 Baso # (Auto) 0.0 (0.0-0.2) th/mm3 WBC Differential . Diff Scan Differential Comment Auto diff final Platelet Estimate (Normal) Platelet Morphology (Normal) PT (9.8-11.6) sec INR Ratio APTT 67.1 H D (23.4-31.7) sec Puncture Site Patient Temperature O2 Saturation (90-100) % ABG pH (7.380-7.420) ABG pCO2 (38-42) mmHg ABG pO2 (61-120) mmHG ABG HCO3 (22-26) mmol/L ABG O2 Content (12.0-20.0) Vol % ABG Base Excess (-2-2) mmol/L ABG Methemoglobin (0-2) % Gabe Test Hemoglobin (12.0-16.0) G/DL Carboxyhemoglobin (0-4) % O2 Delivery Device Vent Setting Inspired O2 % Critical Value Sodium (136-145) meq/L Potassium (3.5-5.1) meq/L Chloride (98-107) meq/L Carbon Dioxide (21.0-32.0) meq/L Anion Gap (5-15) meq/L BUN (7-18) mg/dL Creatinine (0.50-1.00) mg/dL Estimated GFR (>89) mL/min POC Glucose 122 H (68-110) mg/dl Random Glucose (74-106) mg/dL Calcium (8.5-10.1) mg/dL Phosphorus (2.5-4.9) mg/dL Magnesium (1.5-2.5) mg/dL Total Bilirubin (0.2-1.0) mg/dL AST (15-37) U/L ALT (10-53) U/L Alkaline Phosphatase (45-117) U/L Ammonia (11-32) mcmol/L Troponin I (0.02-0.05) ng/mL Total Protein (6.4-8.2) g/dL Albumin (3.4-5.0) g/dL Urine Color (Yellw/Straw) Urine Clarity (Clear) Urine pH (5.0-8.5) Ur Specific [place] (1.002-1.035) Urine Protein (Neg-Trace) mg/dL Urine Glucose (UA) (Negative) mg/dL Urine Ketones (Negative) mg/dL Urine Occult Blood (Negative) Urine Nitrate (Negative) Urine Bilirubin (Negative) Urine Urobilinogen (Less than 2) mg/dL Ur Leukocyte Esterase (Negative) Urine RBC (0-3) /hpf Urine WBC (0-5) /hpf Ur Squamous Epith Cells (0-5) /hpf Urine Bacteria (None) /hpf Micro UA Comment Ur Microscopic Review Urine Culture Comments Nasal Screen MRSA (PCR) (Negative) Random Vancomycin Comment Urine Opiates Screen (Neg) Ur Barbiturates Screen (Neg) Ur Amphetamines Screen (Neg) U Benzodiazepines Scrn (Neg) Urine Cocaine Screen (Neg) U Cannabinoids Screen (Neg) Hepatitis A IgM Ab (Nonreactive) Hep Bs Antigen (Nonreactive) Hep B Core IgM Ab (Nonreactive) Hep C IgG Ab (Nonreactive) Blood Type Antibody Screen 09/10/18 09/10/18 09/10/18 Range/Units 04:05 04:05 07:29 WBC (4.0-11.0) th/mm3 RBC (4.00-5.30) mil/mm3 Hgb (11.6-15.3) gm/dL Hct (35.0-46.0) % MCV (80.0-100.0) fL MCH (27.0-34.0) pg MCHC (32.0-36.0) % RDW (11.6-17.2) % Plt Count (150-450) th/mm3 MPV (7.0-11.0) fL Prelim Diff (Auto) Neut % (Auto) (16.0-70.0) % Lymph % (Auto) (9.0-44.0) % Loving % (Auto) (0.0-8.0) % Eos % (Auto) (0.0-4.0) % Baso % (Auto) (0.0-2.0) % Neut # (Auto) (1.8-7.7) th/mm3 Lymph # (Auto) (1.0-4.8) th/mm3 Loving # (Auto) (0.0-0.9) th/mm3 Eos # (Auto) (0.0-0.4) th/mm3 Baso # (Auto) (0.0-0.2) th/mm3 WBC Differential Diff Scan Differential Comment Platelet Estimate (Normal) Platelet Morphology (Normal) PT 10.8 (9.8-11.6) sec INR 1.1 Ratio APTT 65.7 H 57.7 H (23.4-31.7) sec Puncture Site Patient Temperature O2 Saturation (90-100) % ABG pH (7.380-7.420) ABG pCO2 (38-42) mmHg ABG pO2 (61-120) mmHG ABG HCO3 (22-26) mmol/L ABG O2 Content (12.0-20.0) Vol % ABG Base Excess (-2-2) mmol/L ABG Methemoglobin (0-2) % Gabe Test Hemoglobin (12.0-16.0) G/DL Carboxyhemoglobin (0-4) % O2 Delivery Device Vent Setting Inspired O2 % Critical Value Sodium 144 (136-145) meq/L Potassium 3.4 L (3.5-5.1) meq/L Chloride 106 (98-107) meq/L Carbon Dioxide 26.4 (21.0-32.0) meq/L Anion Gap 12 (5-15) meq/L BUN 36 H (7-18) mg/dL Creatinine 4.02 H (0.50-1.00) mg/dL Estimated GFR 12 L (>89) mL/min POC Glucose (68-110) mg/dl Random Glucose 137 H (74-106) mg/dL Calcium 7.7 L (8.5-10.1) mg/dL Phosphorus 4.6 D (2.5-4.9) mg/dL Magnesium 1.7 (1.5-2.5) mg/dL Total Bilirubin 0.4 (0.2-1.0) mg/dL AST 104 H (15-37) U/L ALT 91 H (10-53) U/L Alkaline Phosphatase 115 (45-117) U/L Ammonia (11-32) mcmol/L Troponin I (0.02-0.05) ng/mL Total Protein 6.7 (6.4-8.2) g/dL Albumin 2.5 L (3.4-5.0) g/dL Urine Color (Yellw/Straw) Urine Clarity (Clear) Urine pH (5.0-8.5) Ur Specific [place] (1.002-1.035) Urine Protein (Neg-Trace) mg/dL Urine Glucose (UA) (Negative) mg/dL Urine Ketones (Negative) mg/dL Urine Occult Blood (Negative) Urine Nitrate (Negative) Urine Bilirubin (Negative) Urine Urobilinogen (Less than 2) mg/dL Ur Leukocyte Esterase (Negative) Urine RBC (0-3) /hpf Urine WBC (0-5) /hpf Ur Squamous Epith Cells (0-5) /hpf Urine Bacteria (None) /hpf Micro UA Comment Ur Microscopic Review Urine Culture Comments Nasal Screen MRSA (PCR) (Negative) Random Vancomycin 32.2 Comment Urine Opiates Screen (Neg) Ur Barbiturates Screen (Neg) Ur Amphetamines Screen (Neg) U Benzodiazepines Scrn (Neg) Urine Cocaine Screen (Neg) U Cannabinoids Screen (Neg) Hepatitis A IgM Ab (Nonreactive) Hep Bs Antigen (Nonreactive) Hep B Core IgM Ab (Nonreactive) Hep C IgG Ab (Nonreactive) Blood Type Antibody Screen 09/10/18 09/10/18 09/10/18 Range/Units 09:00 09:25 12:55 WBC (4.0-11.0) th/mm3 RBC (4.00-5.30) mil/mm3 Hgb (11.6-15.3) gm/dL Hct (35.0-46.0) % MCV (80.0-100.0) fL MCH (27.0-34.0) pg MCHC (32.0-36.0) % RDW (11.6-17.2) % Plt Count (150-450) th/mm3 MPV (7.0-11.0) fL Prelim Diff (Auto) Neut % (Auto) (16.0-70.0) % Lymph % (Auto) (9.0-44.0) % Loving % (Auto) (0.0-8.0) % Eos % (Auto) (0.0-4.0) % Baso % (Auto) (0.0-2.0) % Neut # (Auto) (1.8-7.7) th/mm3 Lymph # (Auto) (1.0-4.8) th/mm3 Loving # (Auto) (0.0-0.9) th/mm3 Eos # (Auto) (0.0-0.4) th/mm3 Baso # (Auto) (0.0-0.2) th/mm3 WBC Differential Diff Scan Differential Comment Platelet Estimate (Normal) Platelet Morphology (Normal) PT (9.8-11.6) sec INR Ratio APTT (23.4-31.7) sec Puncture Site Right radial Patient Temperature 98.6 O2 Saturation 96 (90-100) % ABG pH 7.44 H (7.380-7.420) ABG pCO2 35 L (38-42) mmHg ABG pO2 126 H (61-120) mmHG ABG HCO3 23 (22-26) mmol/L ABG O2 Content 14.7 (12.0-20.0) Vol % ABG Base Excess -0.3 (-2-2) mmol/L ABG Methemoglobin 1.8 (0-2) % Gabe Test Present Hemoglobin 10.8 L (12.0-16.0) G/DL Carboxyhemoglobin 0.8 (0-4) % O2 Delivery Device Ventilator Vent Setting Inspired O2 40 % Critical Value No Sodium (136-145) meq/L Potassium (3.5-5.1) meq/L Chloride (98-107) meq/L Carbon Dioxide (21.0-32.0) meq/L Anion Gap (5-15) meq/L BUN (7-18) mg/dL Creatinine (0.50-1.00) mg/dL Estimated GFR (>89) mL/min POC Glucose 166 H 161 H (68-110) mg/dl Random Glucose (74-106) mg/dL Calcium (8.5-10.1) mg/dL Phosphorus (2.5-4.9) mg/dL Magnesium (1.5-2.5) mg/dL Total Bilirubin (0.2-1.0) mg/dL AST (15-37) U/L ALT (10-53) U/L Alkaline Phosphatase (45-117) U/L Ammonia (11-32) mcmol/L Troponin I (0.02-0.05) ng/mL Total Protein (6.4-8.2) g/dL Albumin (3.4-5.0) g/dL Urine Color (Yellw/Straw) Urine Clarity (Clear) Urine pH (5.0-8.5) Ur Specific [place] (1.002-1.035) Urine Protein (Neg-Trace) mg/dL Urine Glucose (UA) (Negative) mg/dL Urine Ketones (Negative) mg/dL Urine Occult Blood (Negative) Urine Nitrate (Negative) Urine Bilirubin (Negative) Urine Urobilinogen (Less than 2) mg/dL Ur Leukocyte Esterase (Negative) Urine RBC (0-3) /hpf Urine WBC (0-5) /hpf Ur Squamous Epith Cells (0-5) /hpf Urine Bacteria (None) /hpf Micro UA Comment Ur Microscopic Review Urine Culture Comments Nasal Screen MRSA (PCR) (Negative) Random Vancomycin Comment Urine Opiates Screen (Neg) Ur Barbiturates Screen (Neg) Ur Amphetamines Screen (Neg) U Benzodiazepines Scrn (Neg) Urine Cocaine Screen (Neg) U Cannabinoids Screen (Neg) Hepatitis A IgM Ab (Nonreactive) Hep Bs Antigen (Nonreactive) Hep B Core IgM Ab (Nonreactive) Hep C IgG Ab (Nonreactive) Blood Type Antibody Screen 09/10/18 09/10/18 09/10/18 Range/Units 15:40 19:43 22:15 WBC (4.0-11.0) th/mm3 RBC (4.00-5.30) mil/mm3 Hgb (11.6-15.3) gm/dL Hct (35.0-46.0) % MCV (80.0-100.0) fL MCH (27.0-34.0) pg MCHC (32.0-36.0) % RDW (11.6-17.2) % Plt Count (150-450) th/mm3 MPV (7.0-11.0) fL Prelim Diff (Auto) Neut % (Auto) (16.0-70.0) % Lymph % (Auto) (9.0-44.0) % Loving % (Auto) (0.0-8.0) % Eos % (Auto) (0.0-4.0) % Baso % (Auto) (0.0-2.0) % Neut # (Auto) (1.8-7.7) th/mm3 Lymph # (Auto) (1.0-4.8) th/mm3 Loving # (Auto) (0.0-0.9) th/mm3 Eos # (Auto) (0.0-0.4) th/mm3 Baso # (Auto) (0.0-0.2) th/mm3 WBC Differential Diff Scan Differential Comment Platelet Estimate (Normal) Platelet Morphology (Normal) PT (9.8-11.6) sec INR Ratio APTT (23.4-31.7) sec Puncture Site Patient Temperature O2 Saturation (90-100) % ABG pH (7.380-7.420) ABG pCO2 (38-42) mmHg ABG pO2 (61-120) mmHG ABG HCO3 (22-26) mmol/L ABG O2 Content (12.0-20.0) Vol % ABG Base Excess (-2-2) mmol/L ABG Methemoglobin (0-2) % Gabe Test Hemoglobin (12.0-16.0) G/DL Carboxyhemoglobin (0-4) % O2 Delivery Device Vent Setting Inspired O2 % Critical Value Sodium (136-145) meq/L Potassium 3.5 (3.5-5.1) meq/L Chloride (98-107) meq/L Carbon Dioxide (21.0-32.0) meq/L Anion Gap (5-15) meq/L BUN (7-18) mg/dL Creatinine (0.50-1.00) mg/dL Estimated GFR (>89) mL/min POC Glucose 163 H 121 H (68-110) mg/dl Random Glucose (74-106) mg/dL Calcium (8.5-10.1) mg/dL Phosphorus (2.5-4.9) mg/dL Magnesium (1.5-2.5) mg/dL Total Bilirubin (0.2-1.0) mg/dL AST (15-37) U/L ALT (10-53) U/L Alkaline Phosphatase (45-117) U/L Ammonia (11-32) mcmol/L Troponin I (0.02-0.05) ng/mL Total Protein (6.4-8.2) g/dL Albumin (3.4-5.0) g/dL Urine Color (Yellw/Straw) Urine Clarity (Clear) Urine pH (5.0-8.5) Ur Specific [place] (1.002-1.035) Urine Protein (Neg-Trace) mg/dL Urine Glucose (UA) (Negative) mg/dL Urine Ketones (Negative) mg/dL Urine Occult Blood (Negative) Urine Nitrate (Negative) Urine Bilirubin (Negative) Urine Urobilinogen (Less than 2) mg/dL Ur Leukocyte Esterase (Negative) Urine RBC (0-3) /hpf Urine WBC (0-5) /hpf Ur Squamous Epith Cells (0-5) /hpf Urine Bacteria (None) /hpf Micro UA Comment Ur Microscopic Review Urine Culture Comments Nasal Screen MRSA (PCR) (Negative) Random Vancomycin Comment Urine Opiates Screen (Neg) Ur Barbiturates Screen (Neg) Ur Amphetamines Screen (Neg) U Benzodiazepines Scrn (Neg) Urine Cocaine Screen (Neg) U Cannabinoids Screen (Neg) Hepatitis A IgM Ab (Nonreactive) Hep Bs Antigen (Nonreactive) Hep B Core IgM Ab (Nonreactive) Hep C IgG Ab (Nonreactive) Blood Type Antibody Screen 09/11/18 09/11/18 09/11/18 Range/Units 00:14 03:31 03:35 WBC 7.0 (4.0-11.0) th/mm3 RBC 4.04 (4.00-5.30) mil/mm3 Hgb 10.5 L (11.6-15.3) gm/dL Hct 32.9 L (35.0-46.0) % MCV 81.5 (80.0-100.0) fL MCH 26.0 L (27.0-34.0) pg MCHC 31.8 L (32.0-36.0) % RDW 17.0 (11.6-17.2) % Plt Count 255 (150-450) th/mm3 MPV 8.3 (7.0-11.0) fL Prelim Diff (Auto) Neut % (Auto) (16.0-70.0) % Lymph % (Auto) (9.0-44.0) % Loving % (Auto) (0.0-8.0) % Eos % (Auto) (0.0-4.0) % Baso % (Auto) (0.0-2.0) % Neut # (Auto) (1.8-7.7) th/mm3 Lymph # (Auto) (1.0-4.8) th/mm3 Loving # (Auto) (0.0-0.9) th/mm3 Eos # (Auto) (0.0-0.4) th/mm3 Baso # (Auto) (0.0-0.2) th/mm3 WBC Differential Diff Scan Differential Comment Platelet Estimate (Normal) Platelet Morphology (Normal) PT (9.8-11.6) sec INR Ratio APTT (23.4-31.7) sec Puncture Site Patient Temperature O2 Saturation (90-100) % ABG pH (7.380-7.420) ABG pCO2 (38-42) mmHg ABG pO2 (61-120) mmHG ABG HCO3 (22-26) mmol/L ABG O2 Content (12.0-20.0) Vol % ABG Base Excess (-2-2) mmol/L ABG Methemoglobin (0-2) % Gabe Test Hemoglobin (12.0-16.0) G/DL Carboxyhemoglobin (0-4) % O2 Delivery Device Vent Setting Inspired O2 % Critical Value Sodium (136-145) meq/L Potassium (3.5-5.1) meq/L Chloride (98-107) meq/L Carbon Dioxide (21.0-32.0) meq/L Anion Gap (5-15) meq/L BUN (7-18) mg/dL Creatinine (0.50-1.00) mg/dL Estimated GFR (>89) mL/min POC Glucose 132 H 133 H (68-110) mg/dl Random Glucose (74-106) mg/dL Calcium (8.5-10.1) mg/dL Phosphorus (2.5-4.9) mg/dL Magnesium (1.5-2.5) mg/dL Total Bilirubin (0.2-1.0) mg/dL AST (15-37) U/L ALT (10-53) U/L Alkaline Phosphatase (45-117) U/L Ammonia (11-32) mcmol/L Troponin I (0.02-0.05) ng/mL Total Protein (6.4-8.2) g/dL Albumin (3.4-5.0) g/dL Urine Color (Yellw/Straw) Urine Clarity (Clear) Urine pH (5.0-8.5) Ur Specific [place] (1.002-1.035) Urine Protein (Neg-Trace) mg/dL Urine Glucose (UA) (Negative) mg/dL Urine Ketones (Negative) mg/dL Urine Occult Blood (Negative) Urine Nitrate (Negative) Urine Bilirubin (Negative) Urine Urobilinogen (Less than 2) mg/dL Ur Leukocyte Esterase (Negative) Urine RBC (0-3) /hpf Urine WBC (0-5) /hpf Ur Squamous Epith Cells (0-5) /hpf Urine Bacteria (None) /hpf Micro UA Comment Ur Microscopic Review Urine Culture Comments Nasal Screen MRSA (PCR) (Negative) Random Vancomycin Comment Urine Opiates Screen (Neg) Ur Barbiturates Screen (Neg) Ur Amphetamines Screen (Neg) U Benzodiazepines Scrn (Neg) Urine Cocaine Screen (Neg) U Cannabinoids Screen (Neg) Hepatitis A IgM Ab (Nonreactive) Hep Bs Antigen (Nonreactive) Hep B Core IgM Ab (Nonreactive) Hep C IgG Ab (Nonreactive) Blood Type Antibody Screen 09/11/18 09/11/18 09/11/18 Range/Units 03:35 03:35 12:25 WBC (4.0-11.0) th/mm3 RBC (4.00-5.30) mil/mm3 Hgb (11.6-15.3) gm/dL Hct (35.0-46.0) % MCV (80.0-100.0) fL MCH (27.0-34.0) pg MCHC (32.0-36.0) % RDW (11.6-17.2) % Plt Count (150-450) th/mm3 MPV (7.0-11.0) fL Prelim Diff (Auto) Neut % (Auto) (16.0-70.0) % Lymph % (Auto) (9.0-44.0) % Loving % (Auto) (0.0-8.0) % Eos % (Auto) (0.0-4.0) % Baso % (Auto) (0.0-2.0) % Neut # (Auto) (1.8-7.7) th/mm3 Lymph # (Auto) (1.0-4.8) th/mm3 Loving # (Auto) (0.0-0.9) th/mm3 Eos # (Auto) (0.0-0.4) th/mm3 Baso # (Auto) (0.0-0.2) th/mm3 WBC Differential Diff Scan Differential Comment Platelet Estimate (Normal) Platelet Morphology (Normal) PT (9.8-11.6) sec INR Ratio APTT 56.7 H (23.4-31.7) sec Puncture Site Patient Temperature O2 Saturation (90-100) % ABG pH (7.380-7.420) ABG pCO2 (38-42) mmHg ABG pO2 (61-120) mmHG ABG HCO3 (22-26) mmol/L ABG O2 Content (12.0-20.0) Vol % ABG Base Excess (-2-2) mmol/L ABG Methemoglobin (0-2) % Gabe Test Hemoglobin (12.0-16.0) G/DL Carboxyhemoglobin (0-4) % O2 Delivery Device Vent Setting Inspired O2 % Critical Value Sodium 144 (136-145) meq/L Potassium 3.3 L (3.5-5.1) meq/L Chloride 106 (98-107) meq/L Carbon Dioxide 26.3 (21.0-32.0) meq/L Anion Gap 12 (5-15) meq/L BUN 46 H (7-18) mg/dL Creatinine 5.46 H (0.50-1.00) mg/dL Estimated GFR 8 L (>89) mL/min POC Glucose 149 H (68-110) mg/dl Random Glucose 123 H (74-106) mg/dL Calcium 7.8 L (8.5-10.1) mg/dL Phosphorus (2.5-4.9) mg/dL Magnesium (1.5-2.5) mg/dL Total Bilirubin 0.4 (0.2-1.0) mg/dL AST 63 H (15-37) U/L ALT 77 H (10-53) U/L Alkaline Phosphatase 102 (45-117) U/L Ammonia (11-32) mcmol/L Troponin I (0.02-0.05) ng/mL Total Protein 6.6 (6.4-8.2) g/dL Albumin 2.4 L (3.4-5.0) g/dL Urine Color (Yellw/Straw) Urine Clarity (Clear) Urine pH (5.0-8.5) Ur Specific [place] (1.002-1.035) Urine Protein (Neg-Trace) mg/dL Urine Glucose (UA) (Negative) mg/dL Urine Ketones (Negative) mg/dL Urine Occult Blood (Negative) Urine Nitrate (Negative) Urine Bilirubin (Negative) Urine Urobilinogen (Less than 2) mg/dL Ur Leukocyte Esterase (Negative) Urine RBC (0-3) /hpf Urine WBC (0-5) /hpf Ur Squamous Epith Cells (0-5) /hpf Urine Bacteria (None) /hpf Micro UA Comment Ur Microscopic Review Urine Culture Comments Nasal Screen MRSA (PCR) (Negative) Random Vancomycin 18.8 Comment Urine Opiates Screen (Neg) Ur Barbiturates Screen (Neg) Ur Amphetamines Screen (Neg) U Benzodiazepines Scrn (Neg) Urine Cocaine Screen (Neg) U Cannabinoids Screen (Neg) Hepatitis A IgM Ab (Nonreactive) Hep Bs Antigen (Nonreactive) Hep B Core IgM Ab (Nonreactive) Hep C IgG Ab (Nonreactive) Blood Type Antibody Screen 09/11/18 09/11/18 09/12/18 Range/Units 20:20 23:26 04:00 WBC 9.4 (4.0-11.0) th/mm3 RBC 4.02 (4.00-5.30) mil/mm3 Hgb 10.6 L (11.6-15.3) gm/dL Hct 32.1 L (35.0-46.0) % MCV 79.9 L (80.0-100.0) fL MCH 26.3 L (27.0-34.0) pg MCHC 32.9 (32.0-36.0) % RDW 17.4 H (11.6-17.2) % Plt Count 272 (150-450) th/mm3 MPV 8.2 (7.0-11.0) fL Prelim Diff (Auto) Neut % (Auto) (16.0-70.0) % Lymph % (Auto) (9.0-44.0) % Loving % (Auto) (0.0-8.0) % Eos % (Auto) (0.0-4.0) % Baso % (Auto) (0.0-2.0) % Neut # (Auto) (1.8-7.7) th/mm3 Lymph # (Auto) (1.0-4.8) th/mm3 Loving # (Auto) (0.0-0.9) th/mm3 Eos # (Auto) (0.0-0.4) th/mm3 Baso # (Auto) (0.0-0.2) th/mm3 WBC Differential Diff Scan Differential Comment Platelet Estimate (Normal) Platelet Morphology (Normal) PT (9.8-11.6) sec INR Ratio APTT (23.4-31.7) sec Puncture Site Patient Temperature O2 Saturation (90-100) % ABG pH (7.380-7.420) ABG pCO2 (38-42) mmHg ABG pO2 (61-120) mmHG ABG HCO3 (22-26) mmol/L ABG O2 Content (12.0-20.0) Vol % ABG Base Excess (-2-2) mmol/L ABG Methemoglobin (0-2) % Gabe Test Hemoglobin (12.0-16.0) G/DL Carboxyhemoglobin (0-4) % O2 Delivery Device Vent Setting Inspired O2 % Critical Value Sodium (136-145) meq/L Potassium (3.5-5.1) meq/L Chloride (98-107) meq/L Carbon Dioxide (21.0-32.0) meq/L Anion Gap (5-15) meq/L BUN (7-18) mg/dL Creatinine (0.50-1.00) mg/dL Estimated GFR (>89) mL/min POC Glucose 92 122 H (68-110) mg/dl Random Glucose (74-106) mg/dL Calcium (8.5-10.1) mg/dL Phosphorus (2.5-4.9) mg/dL Magnesium (1.5-2.5) mg/dL Total Bilirubin (0.2-1.0) mg/dL AST (15-37) U/L ALT (10-53) U/L Alkaline Phosphatase (45-117) U/L Ammonia (11-32) mcmol/L Troponin I (0.02-0.05) ng/mL Total Protein (6.4-8.2) g/dL Albumin (3.4-5.0) g/dL Urine Color (Yellw/Straw) Urine Clarity (Clear) Urine pH (5.0-8.5) Ur Specific [place] (1.002-1.035) Urine Protein (Neg-Trace) mg/dL Urine Glucose (UA) (Negative) mg/dL Urine Ketones (Negative) mg/dL Urine Occult Blood (Negative) Urine Nitrate (Negative) Urine Bilirubin (Negative) Urine Urobilinogen (Less than 2) mg/dL Ur Leukocyte Esterase (Negative) Urine RBC (0-3) /hpf Urine WBC (0-5) /hpf Ur Squamous Epith Cells (0-5) /hpf Urine Bacteria (None) /hpf Micro UA Comment Ur Microscopic Review Urine Culture Comments Nasal Screen MRSA (PCR) (Negative) Random Vancomycin Comment Urine Opiates Screen (Neg) Ur Barbiturates Screen (Neg) Ur Amphetamines Screen (Neg) U Benzodiazepines Scrn (Neg) Urine Cocaine Screen (Neg) U Cannabinoids Screen (Neg) Hepatitis A IgM Ab (Nonreactive) Hep Bs Antigen (Nonreactive) Hep B Core IgM Ab (Nonreactive) Hep C IgG Ab (Nonreactive) Blood Type Antibody Screen 09/12/18 09/12/18 09/12/18 Range/Units 04:00 04:00 09:59 WBC (4.0-11.0) th/mm3 RBC (4.00-5.30) mil/mm3 Hgb (11.6-15.3) gm/dL Hct (35.0-46.0) % MCV (80.0-100.0) fL MCH (27.0-34.0) pg MCHC (32.0-36.0) % RDW (11.6-17.2) % Plt Count (150-450) th/mm3 MPV (7.0-11.0) fL Prelim Diff (Auto) Neut % (Auto) (16.0-70.0) % Lymph % (Auto) (9.0-44.0) % Loving % (Auto) (0.0-8.0) % Eos % (Auto) (0.0-4.0) % Baso % (Auto) (0.0-2.0) % Neut # (Auto) (1.8-7.7) th/mm3 Lymph # (Auto) (1.0-4.8) th/mm3 Loving # (Auto) (0.0-0.9) th/mm3 Eos # (Auto) (0.0-0.4) th/mm3 Baso # (Auto) (0.0-0.2) th/mm3 WBC Differential Diff Scan Differential Comment Platelet Estimate (Normal) Platelet Morphology (Normal) PT (9.8-11.6) sec INR Ratio APTT 62.2 H 39.9 H D (23.4-31.7) sec Puncture Site Patient Temperature O2 Saturation (90-100) % ABG pH (7.380-7.420) ABG pCO2 (38-42) mmHg ABG pO2 (61-120) mmHG ABG HCO3 (22-26) mmol/L ABG O2 Content (12.0-20.0) Vol % ABG Base Excess (-2-2) mmol/L ABG Methemoglobin (0-2) % Gabe Test Hemoglobin (12.0-16.0) G/DL Carboxyhemoglobin (0-4) % O2 Delivery Device Vent Setting Inspired O2 % Critical Value Sodium 143 (136-145) meq/L Potassium 3.5 (3.5-5.1) meq/L Chloride 105 (98-107) meq/L Carbon Dioxide 25.2 (21.0-32.0) meq/L Anion Gap 13 (5-15) meq/L BUN 54 H (7-18) mg/dL Creatinine 6.40 H (0.50-1.00) mg/dL Estimated GFR 7 L (>89) mL/min POC Glucose (68-110) mg/dl Random Glucose 122 H (74-106) mg/dL Calcium 8.4 L (8.5-10.1) mg/dL Phosphorus (2.5-4.9) mg/dL Magnesium 2.3 D (1.5-2.5) mg/dL Total Bilirubin 0.4 (0.2-1.0) mg/dL AST 34 (15-37) U/L ALT 64 H (10-53) U/L Alkaline Phosphatase 106 (45-117) U/L Ammonia (11-32) mcmol/L Troponin I (0.02-0.05) ng/mL Total Protein 7.0 (6.4-8.2) g/dL Albumin 2.5 L (3.4-5.0) g/dL Urine Color (Yellw/Straw) Urine Clarity (Clear) Urine pH (5.0-8.5) Ur Specific [place] (1.002-1.035) Urine Protein (Neg-Trace) mg/dL Urine Glucose (UA) (Negative) mg/dL Urine Ketones (Negative) mg/dL Urine Occult Blood (Negative) Urine Nitrate (Negative) Urine Bilirubin (Negative) Urine Urobilinogen (Less than 2) mg/dL Ur Leukocyte Esterase (Negative) Urine RBC (0-3) /hpf Urine WBC (0-5) /hpf Ur Squamous Epith Cells (0-5) /hpf Urine Bacteria (None) /hpf Micro UA Comment Ur Microscopic Review Urine Culture Comments Nasal Screen MRSA (PCR) (Negative) Random Vancomycin Comment Urine Opiates Screen (Neg) Ur Barbiturates Screen (Neg) Ur Amphetamines Screen (Neg) U Benzodiazepines Scrn (Neg) Urine Cocaine Screen (Neg) U Cannabinoids Screen (Neg) Hepatitis A IgM Ab (Nonreactive) Hep Bs Antigen (Nonreactive) Hep B Core IgM Ab (Nonreactive) Hep C IgG Ab (Nonreactive) Blood Type Antibody Screen 09/12/18 09/12/18 09/12/18 Range/Units 14:47 15:32 19:49 WBC (4.0-11.0) th/mm3 RBC (4.00-5.30) mil/mm3 Hgb (11.6-15.3) gm/dL Hct (35.0-46.0) % MCV (80.0-100.0) fL MCH (27.0-34.0) pg MCHC (32.0-36.0) % RDW (11.6-17.2) % Plt Count (150-450) th/mm3 MPV (7.0-11.0) fL Prelim Diff (Auto) Neut % (Auto) (16.0-70.0) % Lymph % (Auto) (9.0-44.0) % Loving % (Auto) (0.0-8.0) % Eos % (Auto) (0.0-4.0) % Baso % (Auto) (0.0-2.0) % Neut # (Auto) (1.8-7.7) th/mm3 Lymph # (Auto) (1.0-4.8) th/mm3 Loving # (Auto) (0.0-0.9) th/mm3 Eos # (Auto) (0.0-0.4) th/mm3 Baso # (Auto) (0.0-0.2) th/mm3 WBC Differential Diff Scan Differential Comment Platelet Estimate (Normal) Platelet Morphology (Normal) PT (9.8-11.6) sec INR Ratio APTT 42.0 H (23.4-31.7) sec Puncture Site Patient Temperature O2 Saturation (90-100) % ABG pH (7.380-7.420) ABG pCO2 (38-42) mmHg ABG pO2 (61-120) mmHG ABG HCO3 (22-26) mmol/L ABG O2 Content (12.0-20.0) Vol % ABG Base Excess (-2-2) mmol/L ABG Methemoglobin (0-2) % Gabe Test Hemoglobin (12.0-16.0) G/DL Carboxyhemoglobin (0-4) % O2 Delivery Device Vent Setting Inspired O2 % Critical Value Sodium (136-145) meq/L Potassium (3.5-5.1) meq/L Chloride (98-107) meq/L Carbon Dioxide (21.0-32.0) meq/L Anion Gap (5-15) meq/L BUN (7-18) mg/dL Creatinine (0.50-1.00) mg/dL Estimated GFR (>89) mL/min POC Glucose 112 H 120 H (68-110) mg/dl Random Glucose (74-106) mg/dL Calcium (8.5-10.1) mg/dL Phosphorus (2.5-4.9) mg/dL Magnesium (1.5-2.5) mg/dL Total Bilirubin (0.2-1.0) mg/dL AST (15-37) U/L ALT (10-53) U/L Alkaline Phosphatase (45-117) U/L Ammonia (11-32) mcmol/L Troponin I (0.02-0.05) ng/mL Total Protein (6.4-8.2) g/dL Albumin (3.4-5.0) g/dL Urine Color (Yellw/Straw) Urine Clarity (Clear) Urine pH (5.0-8.5) Ur Specific [place] (1.002-1.035) Urine Protein (Neg-Trace) mg/dL Urine Glucose (UA) (Negative) mg/dL Urine Ketones (Negative) mg/dL Urine Occult Blood (Negative) Urine Nitrate (Negative) Urine Bilirubin (Negative) Urine Urobilinogen (Less than 2) mg/dL Ur Leukocyte Esterase (Negative) Urine RBC (0-3) /hpf Urine WBC (0-5) /hpf Ur Squamous Epith Cells (0-5) /hpf Urine Bacteria (None) /hpf Micro UA Comment Ur Microscopic Review Urine Culture Comments Nasal Screen MRSA (PCR) (Negative) Random Vancomycin Comment Urine Opiates Screen (Neg) Ur Barbiturates Screen (Neg) Ur Amphetamines Screen (Neg) U Benzodiazepines Scrn (Neg) Urine Cocaine Screen (Neg) U Cannabinoids Screen (Neg) Hepatitis A IgM Ab (Nonreactive) Hep Bs Antigen (Nonreactive) Hep B Core IgM Ab (Nonreactive) Hep C IgG Ab (Nonreactive) Blood Type Antibody Screen 09/12/18 09/13/18 09/13/18 Range/Units 23:33 03:05 03:09 WBC (4.0-11.0) th/mm3 RBC (4.00-5.30) mil/mm3 Hgb (11.6-15.3) gm/dL Hct (35.0-46.0) % MCV (80.0-100.0) fL MCH (27.0-34.0) pg MCHC (32.0-36.0) % RDW (11.6-17.2) % Plt Count (150-450) th/mm3 MPV (7.0-11.0) fL Prelim Diff (Auto) Neut % (Auto) (16.0-70.0) % Lymph % (Auto) (9.0-44.0) % Loving % (Auto) (0.0-8.0) % Eos % (Auto) (0.0-4.0) % Baso % (Auto) (0.0-2.0) % Neut # (Auto) (1.8-7.7) th/mm3 Lymph # (Auto) (1.0-4.8) th/mm3 Loving # (Auto) (0.0-0.9) th/mm3 Eos # (Auto) (0.0-0.4) th/mm3 Baso # (Auto) (0.0-0.2) th/mm3 WBC Differential Diff Scan Differential Comment Platelet Estimate (Normal) Platelet Morphology (Normal) PT (9.8-11.6) sec INR Ratio APTT 40.9 H (23.4-31.7) sec Puncture Site Patient Temperature O2 Saturation (90-100) % ABG pH (7.380-7.420) ABG pCO2 (38-42) mmHg ABG pO2 (61-120) mmHG ABG HCO3 (22-26) mmol/L ABG O2 Content (12.0-20.0) Vol % ABG Base Excess (-2-2) mmol/L ABG Methemoglobin (0-2) % Gabe Test Hemoglobin (12.0-16.0) G/DL Carboxyhemoglobin (0-4) % O2 Delivery Device Vent Setting Inspired O2 % Critical Value Sodium (136-145) meq/L Potassium (3.5-5.1) meq/L Chloride (98-107) meq/L Carbon Dioxide (21.0-32.0) meq/L Anion Gap (5-15) meq/L BUN (7-18) mg/dL Creatinine (0.50-1.00) mg/dL Estimated GFR (>89) mL/min POC Glucose 95 113 H (68-110) mg/dl Random Glucose (74-106) mg/dL Calcium (8.5-10.1) mg/dL Phosphorus (2.5-4.9) mg/dL Magnesium (1.5-2.5) mg/dL Total Bilirubin (0.2-1.0) mg/dL AST (15-37) U/L ALT (10-53) U/L Alkaline Phosphatase (45-117) U/L Ammonia (11-32) mcmol/L Troponin I (0.02-0.05) ng/mL Total Protein (6.4-8.2) g/dL Albumin (3.4-5.0) g/dL Urine Color (Yellw/Straw) Urine Clarity (Clear) Urine pH (5.0-8.5) Ur Specific [place] (1.002-1.035) Urine Protein (Neg-Trace) mg/dL Urine Glucose (UA) (Negative) mg/dL Urine Ketones (Negative) mg/dL Urine Occult Blood (Negative) Urine Nitrate (Negative) Urine Bilirubin (Negative) Urine Urobilinogen (Less than 2) mg/dL Ur Leukocyte Esterase (Negative) Urine RBC (0-3) /hpf Urine WBC (0-5) /hpf Ur Squamous Epith Cells (0-5) /hpf Urine Bacteria (None) /hpf Micro UA Comment Ur Microscopic Review Urine Culture Comments Nasal Screen MRSA (PCR) (Negative) Random Vancomycin Comment Urine Opiates Screen (Neg) Ur Barbiturates Screen (Neg) Ur Amphetamines Screen (Neg) U Benzodiazepines Scrn (Neg) Urine Cocaine Screen (Neg) U Cannabinoids Screen (Neg) Hepatitis A IgM Ab (Nonreactive) Hep Bs Antigen (Nonreactive) Hep B Core IgM Ab (Nonreactive) Hep C IgG Ab (Nonreactive) Blood Type Antibody Screen 09/13/18 09/13/18 09/13/18 Range/Units 03:09 07:29 08:17 WBC 6.5 (4.0-11.0) th/mm3 RBC 4.22 (4.00-5.30) mil/mm3 Hgb 11.1 L (11.6-15.3) gm/dL Hct 33.6 L (35.0-46.0) % MCV 79.6 L (80.0-100.0) fL MCH 26.4 L (27.0-34.0) pg MCHC 33.2 (32.0-36.0) % RDW 17.0 (11.6-17.2) % Plt Count 272 (150-450) th/mm3 MPV 7.8 (7.0-11.0) fL Prelim Diff (Auto) Neut % (Auto) (16.0-70.0) % Lymph % (Auto) (9.0-44.0) % Loving % (Auto) (0.0-8.0) % Eos % (Auto) (0.0-4.0) % Baso % (Auto) (0.0-2.0) % Neut # (Auto) (1.8-7.7) th/mm3 Lymph # (Auto) (1.0-4.8) th/mm3 Loving # (Auto) (0.0-0.9) th/mm3 Eos # (Auto) (0.0-0.4) th/mm3 Baso # (Auto) (0.0-0.2) th/mm3 WBC Differential Diff Scan Differential Comment Platelet Estimate (Normal) Platelet Morphology (Normal) PT (9.8-11.6) sec INR Ratio APTT (23.4-31.7) sec Puncture Site Patient Temperature O2 Saturation (90-100) % ABG pH (7.380-7.420) ABG pCO2 (38-42) mmHg ABG pO2 (61-120) mmHG ABG HCO3 (22-26) mmol/L ABG O2 Content (12.0-20.0) Vol % ABG Base Excess (-2-2) mmol/L ABG Methemoglobin (0-2) % Gabe Test Hemoglobin (12.0-16.0) G/DL Carboxyhemoglobin (0-4) % O2 Delivery Device Vent Setting Inspired O2 % Critical Value Sodium 142 (136-145) meq/L Potassium 3.6 (3.5-5.1) meq/L Chloride 103 (98-107) meq/L Carbon Dioxide 26.0 (21.0-32.0) meq/L Anion Gap 13 (5-15) meq/L BUN 46 H (7-18) mg/dL Creatinine 5.41 H (0.50-1.00) mg/dL Estimated GFR 9 L (>89) mL/min POC Glucose 134 H (68-110) mg/dl Random Glucose 110 H (74-106) mg/dL Calcium 8.4 L (8.5-10.1) mg/dL Phosphorus (2.5-4.9) mg/dL Magnesium 2.3 (1.5-2.5) mg/dL Total Bilirubin 0.4 (0.2-1.0) mg/dL AST 27 (15-37) U/L ALT 50 (10-53) U/L Alkaline Phosphatase 105 (45-117) U/L Ammonia (11-32) mcmol/L Troponin I (0.02-0.05) ng/mL Total Protein 7.3 (6.4-8.2) g/dL Albumin 2.5 L (3.4-5.0) g/dL Urine Color (Yellw/Straw) Urine Clarity (Clear) Urine pH (5.0-8.5) Ur Specific [place] (1.002-1.035) Urine Protein (Neg-Trace) mg/dL Urine Glucose (UA) (Negative) mg/dL Urine Ketones (Negative) mg/dL Urine Occult Blood (Negative) Urine Nitrate (Negative) Urine Bilirubin (Negative) Urine Urobilinogen (Less than 2) mg/dL Ur Leukocyte Esterase (Negative) Urine RBC (0-3) /hpf Urine WBC (0-5) /hpf Ur Squamous Epith Cells (0-5) /hpf Urine Bacteria (None) /hpf Micro UA Comment Ur Microscopic Review Urine Culture Comments Nasal Screen MRSA (PCR) (Negative) Random Vancomycin Comment Urine Opiates Screen (Neg) Ur Barbiturates Screen (Neg) Ur Amphetamines Screen (Neg) U Benzodiazepines Scrn (Neg) Urine Cocaine Screen (Neg) U Cannabinoids Screen (Neg) Hepatitis A IgM Ab (Nonreactive) Hep Bs Antigen (Nonreactive) Hep B Core IgM Ab (Nonreactive) Hep C IgG Ab (Nonreactive) Blood Type Antibody Screen 09/13/18 09/13/18 09/13/18 Range/Units 11:54 12:00 15:33 WBC (4.0-11.0) th/mm3 RBC (4.00-5.30) mil/mm3 Hgb (11.6-15.3) gm/dL Hct (35.0-46.0) % MCV (80.0-100.0) fL MCH (27.0-34.0) pg MCHC (32.0-36.0) % RDW (11.6-17.2) % Plt Count (150-450) th/mm3 MPV (7.0-11.0) fL Prelim Diff (Auto) Neut % (Auto) (16.0-70.0) % Lymph % (Auto) (9.0-44.0) % Loving % (Auto) (0.0-8.0) % Eos % (Auto) (0.0-4.0) % Baso % (Auto) (0.0-2.0) % Neut # (Auto) (1.8-7.7) th/mm3 Lymph # (Auto) (1.0-4.8) th/mm3 Loving # (Auto) (0.0-0.9) th/mm3 Eos # (Auto) (0.0-0.4) th/mm3 Baso # (Auto) (0.0-0.2) th/mm3 WBC Differential Diff Scan Differential Comment Platelet Estimate (Normal) Platelet Morphology (Normal) PT (9.8-11.6) sec INR Ratio APTT (23.4-31.7) sec Puncture Site Art line Patient Temperature 98.6 O2 Saturation 93 (90-100) % ABG pH 7.52 H* (7.380-7.420) ABG pCO2 28 L (38-42) mmHg ABG pO2 77 (61-120) mmHG ABG HCO3 23 (22-26) mmol/L ABG O2 Content 13.6 (12.0-20.0) Vol % ABG Base Excess 0.6 (-2-2) mmol/L ABG Methemoglobin 1.8 (0-2) % Gabe Test Present Hemoglobin 10.3 L (12.0-16.0) G/DL Carboxyhemoglobin 0.9 (0-4) % O2 Delivery Device Ventilator Vent Setting Inspired O2 % Critical Value Yes Sodium (136-145) meq/L Potassium (3.5-5.1) meq/L Chloride (98-107) meq/L Carbon Dioxide (21.0-32.0) meq/L Anion Gap (5-15) meq/L BUN (7-18) mg/dL Creatinine (0.50-1.00) mg/dL Estimated GFR (>89) mL/min POC Glucose 127 H 118 H (68-110) mg/dl Random Glucose (74-106) mg/dL Calcium (8.5-10.1) mg/dL Phosphorus (2.5-4.9) mg/dL Magnesium (1.5-2.5) mg/dL Total Bilirubin (0.2-1.0) mg/dL AST (15-37) U/L ALT (10-53) U/L Alkaline Phosphatase (45-117) U/L Ammonia (11-32) mcmol/L Troponin I (0.02-0.05) ng/mL Total Protein (6.4-8.2) g/dL Albumin (3.4-5.0) g/dL Urine Color (Yellw/Straw) Urine Clarity (Clear) Urine pH (5.0-8.5) Ur Specific [place] (1.002-1.035) Urine Protein (Neg-Trace) mg/dL Urine Glucose (UA) (Negative) mg/dL Urine Ketones (Negative) mg/dL Urine Occult Blood (Negative) Urine Nitrate (Negative) Urine Bilirubin (Negative) Urine Urobilinogen (Less than 2) mg/dL Ur Leukocyte Esterase (Negative) Urine RBC (0-3) /hpf Urine WBC (0-5) /hpf Ur Squamous Epith Cells (0-5) /hpf Urine Bacteria (None) /hpf Micro UA Comment Ur Microscopic Review Urine Culture Comments Nasal Screen MRSA (PCR) (Negative) Random Vancomycin Comment Urine Opiates Screen (Neg) Ur Barbiturates Screen (Neg) Ur Amphetamines Screen (Neg) U Benzodiazepines Scrn (Neg) Urine Cocaine Screen (Neg) U Cannabinoids Screen (Neg) Hepatitis A IgM Ab (Nonreactive) Hep Bs Antigen (Nonreactive) Hep B Core IgM Ab (Nonreactive) Hep C IgG Ab (Nonreactive) Blood Type Antibody Screen 09/13/18 09/14/18 09/14/18 Range/Units 21:08 01:07 03:30 WBC 9.6 (4.0-11.0) th/mm3 RBC 3.94 L (4.00-5.30) mil/mm3 Hgb 10.3 L (11.6-15.3) gm/dL Hct 31.9 L (35.0-46.0) % MCV 80.8 (80.0-100.0) fL MCH 26.2 L (27.0-34.0) pg MCHC 32.4 (32.0-36.0) % RDW 17.1 (11.6-17.2) % Plt Count 310 (150-450) th/mm3 MPV 8.3 (7.0-11.0) fL Prelim Diff (Auto) Neut % (Auto) (16.0-70.0) % Lymph % (Auto) (9.0-44.0) % Loving % (Auto) (0.0-8.0) % Eos % (Auto) (0.0-4.0) % Baso % (Auto) (0.0-2.0) % Neut # (Auto) (1.8-7.7) th/mm3 Lymph # (Auto) (1.0-4.8) th/mm3 Loving # (Auto) (0.0-0.9) th/mm3 Eos # (Auto) (0.0-0.4) th/mm3 Baso # (Auto) (0.0-0.2) th/mm3 WBC Differential Diff Scan Differential Comment Platelet Estimate (Normal) Platelet Morphology (Normal) PT (9.8-11.6) sec INR Ratio APTT (23.4-31.7) sec Puncture Site Patient Temperature O2 Saturation (90-100) % ABG pH (7.380-7.420) ABG pCO2 (38-42) mmHg ABG pO2 (61-120) mmHG ABG HCO3 (22-26) mmol/L ABG O2 Content (12.0-20.0) Vol % ABG Base Excess (-2-2) mmol/L ABG Methemoglobin (0-2) % Gabe Test Hemoglobin (12.0-16.0) G/DL Carboxyhemoglobin (0-4) % O2 Delivery Device Vent Setting Inspired O2 % Critical Value Sodium (136-145) meq/L Potassium (3.5-5.1) meq/L Chloride (98-107) meq/L Carbon Dioxide (21.0-32.0) meq/L Anion Gap (5-15) meq/L BUN (7-18) mg/dL Creatinine (0.50-1.00) mg/dL Estimated GFR (>89) mL/min POC Glucose 108 142 H (68-110) mg/dl Random Glucose (74-106) mg/dL Calcium (8.5-10.1) mg/dL Phosphorus (2.5-4.9) mg/dL Magnesium (1.5-2.5) mg/dL Total Bilirubin (0.2-1.0) mg/dL AST (15-37) U/L ALT (10-53) U/L Alkaline Phosphatase (45-117) U/L Ammonia (11-32) mcmol/L Troponin I (0.02-0.05) ng/mL Total Protein (6.4-8.2) g/dL Albumin (3.4-5.0) g/dL Urine Color (Yellw/Straw) Urine Clarity (Clear) Urine pH (5.0-8.5) Ur Specific [place] (1.002-1.035) Urine Protein (Neg-Trace) mg/dL Urine Glucose (UA) (Negative) mg/dL Urine Ketones (Negative) mg/dL Urine Occult Blood (Negative) Urine Nitrate (Negative) Urine Bilirubin (Negative) Urine Urobilinogen (Less than 2) mg/dL Ur Leukocyte Esterase (Negative) Urine RBC (0-3) /hpf Urine WBC (0-5) /hpf Ur Squamous Epith Cells (0-5) /hpf Urine Bacteria (None) /hpf Micro UA Comment Ur Microscopic Review Urine Culture Comments Nasal Screen MRSA (PCR) (Negative) Random Vancomycin Comment Urine Opiates Screen (Neg) Ur Barbiturates Screen (Neg) Ur Amphetamines Screen (Neg) U Benzodiazepines Scrn (Neg) Urine Cocaine Screen (Neg) U Cannabinoids Screen (Neg) Hepatitis A IgM Ab (Nonreactive) Hep Bs Antigen (Nonreactive) Hep B Core IgM Ab (Nonreactive) Hep C IgG Ab (Nonreactive) Blood Type Antibody Screen 09/14/18 09/14/18 09/14/18 Range/Units 03:30 05:00 08:09 WBC (4.0-11.0) th/mm3 RBC (4.00-5.30) mil/mm3 Hgb (11.6-15.3) gm/dL Hct (35.0-46.0) % MCV (80.0-100.0) fL MCH (27.0-34.0) pg MCHC (32.0-36.0) % RDW (11.6-17.2) % Plt Count (150-450) th/mm3 MPV (7.0-11.0) fL Prelim Diff (Auto) Neut % (Auto) (16.0-70.0) % Lymph % (Auto) (9.0-44.0) % Loving % (Auto) (0.0-8.0) % Eos % (Auto) (0.0-4.0) % Baso % (Auto) (0.0-2.0) % Neut # (Auto) (1.8-7.7) th/mm3 Lymph # (Auto) (1.0-4.8) th/mm3 Loving # (Auto) (0.0-0.9) th/mm3 Eos # (Auto) (0.0-0.4) th/mm3 Baso # (Auto) (0.0-0.2) th/mm3 WBC Differential Diff Scan Differential Comment Platelet Estimate (Normal) Platelet Morphology (Normal) PT (9.8-11.6) sec INR Ratio APTT 37.5 H (23.4-31.7) sec Puncture Site Patient Temperature O2 Saturation (90-100) % ABG pH (7.380-7.420) ABG pCO2 (38-42) mmHg ABG pO2 (61-120) mmHG ABG HCO3 (22-26) mmol/L ABG O2 Content (12.0-20.0) Vol % ABG Base Excess (-2-2) mmol/L ABG Methemoglobin (0-2) % Gabe Test Hemoglobin (12.0-16.0) G/DL Carboxyhemoglobin (0-4) % O2 Delivery Device Vent Setting Inspired O2 % Critical Value Sodium 141 (136-145) meq/L Potassium 3.6 (3.5-5.1) meq/L Chloride 100 (98-107) meq/L Carbon Dioxide 27.6 (21.0-32.0) meq/L Anion Gap 13 (5-15) meq/L BUN 31 H (7-18) mg/dL Creatinine 4.71 H (0.50-1.00) mg/dL Estimated GFR 10 L (>89) mL/min POC Glucose 175 H (68-110) mg/dl Random Glucose 156 H (74-106) mg/dL Calcium 9.0 (8.5-10.1) mg/dL Phosphorus (2.5-4.9) mg/dL Magnesium 2.3 (1.5-2.5) mg/dL Total Bilirubin 0.4 (0.2-1.0) mg/dL AST 27 (15-37) U/L ALT 41 (10-53) U/L Alkaline Phosphatase 104 (45-117) U/L Ammonia (11-32) mcmol/L Troponin I (0.02-0.05) ng/mL Total Protein 8.4 H D (6.4-8.2) g/dL Albumin 3.3 L D (3.4-5.0) g/dL Urine Color (Yellw/Straw) Urine Clarity (Clear) Urine pH (5.0-8.5) Ur Specific [place] (1.002-1.035) Urine Protein (Neg-Trace) mg/dL Urine Glucose (UA) (Negative) mg/dL Urine Ketones (Negative) mg/dL Urine Occult Blood (Negative) Urine Nitrate (Negative) Urine Bilirubin (Negative) Urine Urobilinogen (Less than 2) mg/dL Ur Leukocyte Esterase (Negative) Urine RBC (0-3) /hpf Urine WBC (0-5) /hpf Ur Squamous Epith Cells (0-5) /hpf Urine Bacteria (None) /hpf Micro UA Comment Ur Microscopic Review Urine Culture Comments Nasal Screen MRSA (PCR) (Negative) Random Vancomycin Comment Urine Opiates Screen (Neg) Ur Barbiturates Screen (Neg) Ur Amphetamines Screen (Neg) U Benzodiazepines Scrn (Neg) Urine Cocaine Screen (Neg) U Cannabinoids Screen (Neg) Hepatitis A IgM Ab (Nonreactive) Hep Bs Antigen (Nonreactive) Hep B Core IgM Ab (Nonreactive) Hep C IgG Ab (Nonreactive) Blood Type Antibody Screen 09/14/18 09/14/18 09/14/18 Range/Units 08:14 15:46 15:55 WBC (4.0-11.0) th/mm3 RBC (4.00-5.30) mil/mm3 Hgb (11.6-15.3) gm/dL Hct (35.0-46.0) % MCV (80.0-100.0) fL MCH (27.0-34.0) pg MCHC (32.0-36.0) % RDW (11.6-17.2) % Plt Count (150-450) th/mm3 MPV (7.0-11.0) fL Prelim Diff (Auto) Neut % (Auto) (16.0-70.0) % Lymph % (Auto) (9.0-44.0) % Loving % (Auto) (0.0-8.0) % Eos % (Auto) (0.0-4.0) % Baso % (Auto) (0.0-2.0) % Neut # (Auto) (1.8-7.7) th/mm3 Lymph # (Auto) (1.0-4.8) th/mm3 Loving # (Auto) (0.0-0.9) th/mm3 Eos # (Auto) (0.0-0.4) th/mm3 Baso # (Auto) (0.0-0.2) th/mm3 WBC Differential Diff Scan Differential Comment Platelet Estimate (Normal) Platelet Morphology (Normal) PT (9.8-11.6) sec INR Ratio APTT 41.1 H (23.4-31.7) sec Puncture Site Patient Temperature O2 Saturation (90-100) % ABG pH (7.380-7.420) ABG pCO2 (38-42) mmHg ABG pO2 (61-120) mmHG ABG HCO3 (22-26) mmol/L ABG O2 Content (12.0-20.0) Vol % ABG Base Excess (-2-2) mmol/L ABG Methemoglobin (0-2) % Gabe Test Hemoglobin (12.0-16.0) G/DL Carboxyhemoglobin (0-4) % O2 Delivery Device Vent Setting Inspired O2 % Critical Value Sodium (136-145) meq/L Potassium (3.5-5.1) meq/L Chloride (98-107) meq/L Carbon Dioxide (21.0-32.0) meq/L Anion Gap (5-15) meq/L BUN (7-18) mg/dL Creatinine (0.50-1.00) mg/dL Estimated GFR (>89) mL/min POC Glucose 102 159 H (68-110) mg/dl Random Glucose (74-106) mg/dL Calcium (8.5-10.1) mg/dL Phosphorus (2.5-4.9) mg/dL Magnesium (1.5-2.5) mg/dL Total Bilirubin (0.2-1.0) mg/dL AST (15-37) U/L ALT (10-53) U/L Alkaline Phosphatase (45-117) U/L Ammonia (11-32) mcmol/L Troponin I (0.02-0.05) ng/mL Total Protein (6.4-8.2) g/dL Albumin (3.4-5.0) g/dL Urine Color (Yellw/Straw) Urine Clarity (Clear) Urine pH (5.0-8.5) Ur Specific [place] (1.002-1.035) Urine Protein (Neg-Trace) mg/dL Urine Glucose (UA) (Negative) mg/dL Urine Ketones (Negative) mg/dL Urine Occult Blood (Negative) Urine Nitrate (Negative) Urine Bilirubin (Negative) Urine Urobilinogen (Less than 2) mg/dL Ur Leukocyte Esterase (Negative) Urine RBC (0-3) /hpf Urine WBC (0-5) /hpf Ur Squamous Epith Cells (0-5) /hpf Urine Bacteria (None) /hpf Micro UA Comment Ur Microscopic Review Urine Culture Comments Nasal Screen MRSA (PCR) (Negative) Random Vancomycin Comment Urine Opiates Screen (Neg) Ur Barbiturates Screen (Neg) Ur Amphetamines Screen (Neg) U Benzodiazepines Scrn (Neg) Urine Cocaine Screen (Neg) U Cannabinoids Screen (Neg) Hepatitis A IgM Ab (Nonreactive) Hep Bs Antigen (Nonreactive) Hep B Core IgM Ab (Nonreactive) Hep C IgG Ab (Nonreactive) Blood Type Antibody Screen 09/14/18 09/14/18 09/15/18 Range/Units 20:00 21:10 00:59 WBC (4.0-11.0) th/mm3 RBC (4.00-5.30) mil/mm3 Hgb (11.6-15.3) gm/dL Hct (35.0-46.0) % MCV (80.0-100.0) fL MCH (27.0-34.0) pg MCHC (32.0-36.0) % RDW (11.6-17.2) % Plt Count (150-450) th/mm3 MPV (7.0-11.0) fL Prelim Diff (Auto) Neut % (Auto) (16.0-70.0) % Lymph % (Auto) (9.0-44.0) % Loving % (Auto) (0.0-8.0) % Eos % (Auto) (0.0-4.0) % Baso % (Auto) (0.0-2.0) % Neut # (Auto) (1.8-7.7) th/mm3 Lymph # (Auto) (1.0-4.8) th/mm3 Loving # (Auto) (0.0-0.9) th/mm3 Eos # (Auto) (0.0-0.4) th/mm3 Baso # (Auto) (0.0-0.2) th/mm3 WBC Differential Diff Scan Differential Comment Platelet Estimate (Normal) Platelet Morphology (Normal) PT (9.8-11.6) sec INR Ratio APTT 41.2 H (23.4-31.7) sec Puncture Site Patient Temperature O2 Saturation (90-100) % ABG pH (7.380-7.420) ABG pCO2 (38-42) mmHg ABG pO2 (61-120) mmHG ABG HCO3 (22-26) mmol/L ABG O2 Content (12.0-20.0) Vol % ABG Base Excess (-2-2) mmol/L ABG Methemoglobin (0-2) % Gabe Test Hemoglobin (12.0-16.0) G/DL Carboxyhemoglobin (0-4) % O2 Delivery Device Vent Setting Inspired O2 % Critical Value Sodium (136-145) meq/L Potassium (3.5-5.1) meq/L Chloride (98-107) meq/L Carbon Dioxide (21.0-32.0) meq/L Anion Gap (5-15) meq/L BUN (7-18) mg/dL Creatinine (0.50-1.00) mg/dL Estimated GFR (>89) mL/min POC Glucose 133 H 174 H (68-110) mg/dl Random Glucose (74-106) mg/dL Calcium (8.5-10.1) mg/dL Phosphorus (2.5-4.9) mg/dL Magnesium (1.5-2.5) mg/dL Total Bilirubin (0.2-1.0) mg/dL AST (15-37) U/L ALT (10-53) U/L Alkaline Phosphatase (45-117) U/L Ammonia (11-32) mcmol/L Troponin I (0.02-0.05) ng/mL Total Protein (6.4-8.2) g/dL Albumin (3.4-5.0) g/dL Urine Color (Yellw/Straw) Urine Clarity (Clear) Urine pH (5.0-8.5) Ur Specific [place] (1.002-1.035) Urine Protein (Neg-Trace) mg/dL Urine Glucose (UA) (Negative) mg/dL Urine Ketones (Negative) mg/dL Urine Occult Blood (Negative) Urine Nitrate (Negative) Urine Bilirubin (Negative) Urine Urobilinogen (Less than 2) mg/dL Ur Leukocyte Esterase (Negative) Urine RBC (0-3) /hpf Urine WBC (0-5) /hpf Ur Squamous Epith Cells (0-5) /hpf Urine Bacteria (None) /hpf Micro UA Comment Ur Microscopic Review Urine Culture Comments Nasal Screen MRSA (PCR) (Negative) Random Vancomycin Comment Urine Opiates Screen (Neg) Ur Barbiturates Screen (Neg) Ur Amphetamines Screen (Neg) U Benzodiazepines Scrn (Neg) Urine Cocaine Screen (Neg) U Cannabinoids Screen (Neg) Hepatitis A IgM Ab (Nonreactive) Hep Bs Antigen (Nonreactive) Hep B Core IgM Ab (Nonreactive) Hep C IgG Ab (Nonreactive) Blood Type Antibody Screen 09/15/18 09/15/18 09/15/18 Range/Units 04:10 04:10 04:10 WBC 8.1 (4.0-11.0) th/mm3 RBC 3.91 L (4.00-5.30) mil/mm3 Hgb 10.3 L (11.6-15.3) gm/dL Hct 31.9 L (35.0-46.0) % MCV 81.8 (80.0-100.0) fL MCH 26.3 L (27.0-34.0) pg MCHC 32.2 (32.0-36.0) % RDW 17.2 (11.6-17.2) % Plt Count 296 (150-450) th/mm3 MPV 7.8 (7.0-11.0) fL Prelim Diff (Auto) Neut % (Auto) 58.7 (16.0-70.0) % Lymph % (Auto) 22.0 (9.0-44.0) % Loving % (Auto) 8.4 H (0.0-8.0) % Eos % (Auto) 10.4 H (0.0-4.0) % Baso % (Auto) 0.5 (0.0-2.0) % Neut # (Auto) 4.7 (1.8-7.7) th/mm3 Lymph # (Auto) 1.8 (1.0-4.8) th/mm3 Loving # (Auto) 0.7 (0.0-0.9) th/mm3 Eos # (Auto) 0.8 H (0.0-0.4) th/mm3 Baso # (Auto) 0.0 (0.0-0.2) th/mm3 WBC Differential . Diff Scan Differential Comment Auto diff final Platelet Estimate (Normal) Platelet Morphology (Normal) PT (9.8-11.6) sec INR Ratio APTT 43.2 H (23.4-31.7) sec Puncture Site Patient Temperature O2 Saturation (90-100) % ABG pH (7.380-7.420) ABG pCO2 (38-42) mmHg ABG pO2 (61-120) mmHG ABG HCO3 (22-26) mmol/L ABG O2 Content (12.0-20.0) Vol % ABG Base Excess (-2-2) mmol/L ABG Methemoglobin (0-2) % Gabe Test Hemoglobin (12.0-16.0) G/DL Carboxyhemoglobin (0-4) % O2 Delivery Device Vent Setting Inspired O2 % Critical Value Sodium 140 (136-145) meq/L Potassium 3.3 L (3.5-5.1) meq/L Chloride 101 (98-107) meq/L Carbon Dioxide 27.4 (21.0-32.0) meq/L Anion Gap 12 (5-15) meq/L BUN 45 H (7-18) mg/dL Creatinine 6.16 H (0.50-1.00) mg/dL Estimated GFR 7 L (>89) mL/min POC Glucose (68-110) mg/dl Random Glucose 115 H (74-106) mg/dL Calcium 9.5 (8.5-10.1) mg/dL Phosphorus 8.1 H (2.5-4.9) mg/dL Magnesium 2.4 (1.5-2.5) mg/dL Total Bilirubin (0.2-1.0) mg/dL AST (15-37) U/L ALT (10-53) U/L Alkaline Phosphatase (45-117) U/L Ammonia (11-32) mcmol/L Troponin I (0.02-0.05) ng/mL Total Protein (6.4-8.2) g/dL Albumin (3.4-5.0) g/dL Urine Color (Yellw/Straw) Urine Clarity (Clear) Urine pH (5.0-8.5) Ur Specific [place] (1.002-1.035) Urine Protein (Neg-Trace) mg/dL Urine Glucose (UA) (Negative) mg/dL Urine Ketones (Negative) mg/dL Urine Occult Blood (Negative) Urine Nitrate (Negative) Urine Bilirubin (Negative) Urine Urobilinogen (Less than 2) mg/dL Ur Leukocyte Esterase (Negative) Urine RBC (0-3) /hpf Urine WBC (0-5) /hpf Ur Squamous Epith Cells (0-5) /hpf Urine Bacteria (None) /hpf Micro UA Comment Ur Microscopic Review Urine Culture Comments Nasal Screen MRSA (PCR) (Negative) Random Vancomycin Comment Urine Opiates Screen (Neg) Ur Barbiturates Screen (Neg) Ur Amphetamines Screen (Neg) U Benzodiazepines Scrn (Neg) Urine Cocaine Screen (Neg) U Cannabinoids Screen (Neg) Hepatitis A IgM Ab (Nonreactive) Hep Bs Antigen (Nonreactive) Hep B Core IgM Ab (Nonreactive) Hep C IgG Ab (Nonreactive) Blood Type Antibody Screen 09/15/18 09/15/18 09/15/18 Range/Units 04:22 12:18 21:07 WBC (4.0-11.0) th/mm3 RBC (4.00-5.30) mil/mm3 Hgb (11.6-15.3) gm/dL Hct (35.0-46.0) % MCV (80.0-100.0) fL MCH (27.0-34.0) pg MCHC (32.0-36.0) % RDW (11.6-17.2) % Plt Count (150-450) th/mm3 MPV (7.0-11.0) fL Prelim Diff (Auto) Neut % (Auto) (16.0-70.0) % Lymph % (Auto) (9.0-44.0) % Loving % (Auto) (0.0-8.0) % Eos % (Auto) (0.0-4.0) % Baso % (Auto) (0.0-2.0) % Neut # (Auto) (1.8-7.7) th/mm3 Lymph # (Auto) (1.0-4.8) th/mm3 Loving # (Auto) (0.0-0.9) th/mm3 Eos # (Auto) (0.0-0.4) th/mm3 Baso # (Auto) (0.0-0.2) th/mm3 WBC Differential Diff Scan Differential Comment Platelet Estimate (Normal) Platelet Morphology (Normal) PT (9.8-11.6) sec INR Ratio APTT (23.4-31.7) sec Puncture Site Patient Temperature O2 Saturation (90-100) % ABG pH (7.380-7.420) ABG pCO2 (38-42) mmHg ABG pO2 (61-120) mmHG ABG HCO3 (22-26) mmol/L ABG O2 Content (12.0-20.0) Vol % ABG Base Excess (-2-2) mmol/L ABG Methemoglobin (0-2) % Gabe Test Hemoglobin (12.0-16.0) G/DL Carboxyhemoglobin (0-4) % O2 Delivery Device Vent Setting Inspired O2 % Critical Value Sodium (136-145) meq/L Potassium (3.5-5.1) meq/L Chloride (98-107) meq/L Carbon Dioxide (21.0-32.0) meq/L Anion Gap (5-15) meq/L BUN (7-18) mg/dL Creatinine (0.50-1.00) mg/dL Estimated GFR (>89) mL/min POC Glucose 120 H 136 H 137 H (68-110) mg/dl Random Glucose (74-106) mg/dL Calcium (8.5-10.1) mg/dL Phosphorus (2.5-4.9) mg/dL Magnesium (1.5-2.5) mg/dL Total Bilirubin (0.2-1.0) mg/dL AST (15-37) U/L ALT (10-53) U/L Alkaline Phosphatase (45-117) U/L Ammonia (11-32) mcmol/L Troponin I (0.02-0.05) ng/mL Total Protein (6.4-8.2) g/dL Albumin (3.4-5.0) g/dL Urine Color (Yellw/Straw) Urine Clarity (Clear) Urine pH (5.0-8.5) Ur Specific [place] (1.002-1.035) Urine Protein (Neg-Trace) mg/dL Urine Glucose (UA) (Negative) mg/dL Urine Ketones (Negative) mg/dL Urine Occult Blood (Negative) Urine Nitrate (Negative) Urine Bilirubin (Negative) Urine Urobilinogen (Less than 2) mg/dL Ur Leukocyte Esterase (Negative) Urine RBC (0-3) /hpf Urine WBC (0-5) /hpf Ur Squamous Epith Cells (0-5) /hpf Urine Bacteria (None) /hpf Micro UA Comment Ur Microscopic Review Urine Culture Comments Nasal Screen MRSA (PCR) (Negative) Random Vancomycin Comment Urine Opiates Screen (Neg) Ur Barbiturates Screen (Neg) Ur Amphetamines Screen (Neg) U Benzodiazepines Scrn (Neg) Urine Cocaine Screen (Neg) U Cannabinoids Screen (Neg) Hepatitis A IgM Ab (Nonreactive) Hep Bs Antigen (Nonreactive) Hep B Core IgM Ab (Nonreactive) Hep C IgG Ab (Nonreactive) Blood Type Antibody Screen 09/16/18 09/16/18 09/16/18 Range/Units 00:17 04:20 04:20 WBC 11.1 H (4.0-11.0) th/mm3 RBC 3.99 L (4.00-5.30) mil/mm3 Hgb 10.3 L (11.6-15.3) gm/dL Hct 31.6 L (35.0-46.0) % MCV 79.3 L (80.0-100.0) fL MCH 25.9 L (27.0-34.0) pg MCHC 32.6 (32.0-36.0) % RDW 17.2 (11.6-17.2) % Plt Count 354 (150-450) th/mm3 MPV 7.0 (7.0-11.0) fL Prelim Diff (Auto) Neut % (Auto) (16.0-70.0) % Lymph % (Auto) (9.0-44.0) % Loving % (Auto) (0.0-8.0) % Eos % (Auto) (0.0-4.0) % Baso % (Auto) (0.0-2.0) % Neut # (Auto) (1.8-7.7) th/mm3 Lymph # (Auto) (1.0-4.8) th/mm3 Loving # (Auto) (0.0-0.9) th/mm3 Eos # (Auto) (0.0-0.4) th/mm3 Baso # (Auto) (0.0-0.2) th/mm3 WBC Differential Diff Scan Differential Comment Platelet Estimate (Normal) Platelet Morphology (Normal) PT (9.8-11.6) sec INR Ratio APTT 37.3 H (23.4-31.7) sec Puncture Site Patient Temperature O2 Saturation (90-100) % ABG pH (7.380-7.420) ABG pCO2 (38-42) mmHg ABG pO2 (61-120) mmHG ABG HCO3 (22-26) mmol/L ABG O2 Content (12.0-20.0) Vol % ABG Base Excess (-2-2) mmol/L ABG Methemoglobin (0-2) % Gabe Test Hemoglobin (12.0-16.0) G/DL Carboxyhemoglobin (0-4) % O2 Delivery Device Vent Setting Inspired O2 % Critical Value Sodium (136-145) meq/L Potassium (3.5-5.1) meq/L Chloride (98-107) meq/L Carbon Dioxide (21.0-32.0) meq/L Anion Gap (5-15) meq/L BUN (7-18) mg/dL Creatinine (0.50-1.00) mg/dL Estimated GFR (>89) mL/min POC Glucose 148 H (68-110) mg/dl Random Glucose (74-106) mg/dL Calcium (8.5-10.1) mg/dL Phosphorus (2.5-4.9) mg/dL Magnesium (1.5-2.5) mg/dL Total Bilirubin (0.2-1.0) mg/dL AST (15-37) U/L ALT (10-53) U/L Alkaline Phosphatase (45-117) U/L Ammonia (11-32) mcmol/L Troponin I (0.02-0.05) ng/mL Total Protein (6.4-8.2) g/dL Albumin (3.4-5.0) g/dL Urine Color (Yellw/Straw) Urine Clarity (Clear) Urine pH (5.0-8.5) Ur Specific [place] (1.002-1.035) Urine Protein (Neg-Trace) mg/dL Urine Glucose (UA) (Negative) mg/dL Urine Ketones (Negative) mg/dL Urine Occult Blood (Negative) Urine Nitrate (Negative) Urine Bilirubin (Negative) Urine Urobilinogen (Less than 2) mg/dL Ur Leukocyte Esterase (Negative) Urine RBC (0-3) /hpf Urine WBC (0-5) /hpf Ur Squamous Epith Cells (0-5) /hpf Urine Bacteria (None) /hpf Micro UA Comment Ur Microscopic Review Urine Culture Comments Nasal Screen MRSA (PCR) (Negative) Random Vancomycin Comment Urine Opiates Screen (Neg) Ur Barbiturates Screen (Neg) Ur Amphetamines Screen (Neg) U Benzodiazepines Scrn (Neg) Urine Cocaine Screen (Neg) U Cannabinoids Screen (Neg) Hepatitis A IgM Ab (Nonreactive) Hep Bs Antigen (Nonreactive) Hep B Core IgM Ab (Nonreactive) Hep C IgG Ab (Nonreactive) Blood Type Antibody Screen 09/16/18 09/16/18 09/16/18 Range/Units 04:20 08:04 11:00 WBC (4.0-11.0) th/mm3 RBC (4.00-5.30) mil/mm3 Hgb (11.6-15.3) gm/dL Hct (35.0-46.0) % MCV (80.0-100.0) fL MCH (27.0-34.0) pg MCHC (32.0-36.0) % RDW (11.6-17.2) % Plt Count (150-450) th/mm3 MPV (7.0-11.0) fL Prelim Diff (Auto) Neut % (Auto) (16.0-70.0) % Lymph % (Auto) (9.0-44.0) % Loving % (Auto) (0.0-8.0) % Eos % (Auto) (0.0-4.0) % Baso % (Auto) (0.0-2.0) % Neut # (Auto) (1.8-7.7) th/mm3 Lymph # (Auto) (1.0-4.8) th/mm3 Loving # (Auto) (0.0-0.9) th/mm3 Eos # (Auto) (0.0-0.4) th/mm3 Baso # (Auto) (0.0-0.2) th/mm3 WBC Differential Diff Scan Differential Comment Platelet Estimate (Normal) Platelet Morphology (Normal) PT (9.8-11.6) sec INR Ratio APTT 41.3 H (23.4-31.7) sec Puncture Site Patient Temperature O2 Saturation (90-100) % ABG pH (7.380-7.420) ABG pCO2 (38-42) mmHg ABG pO2 (61-120) mmHG ABG HCO3 (22-26) mmol/L ABG O2 Content (12.0-20.0) Vol % ABG Base Excess (-2-2) mmol/L ABG Methemoglobin (0-2) % Gabe Test Hemoglobin (12.0-16.0) G/DL Carboxyhemoglobin (0-4) % O2 Delivery Device Vent Setting Inspired O2 % Critical Value Sodium 137 (136-145) meq/L Potassium 3.1 L (3.5-5.1) meq/L Chloride 97 L (98-107) meq/L Carbon Dioxide 26.8 (21.0-32.0) meq/L Anion Gap 13 (5-15) meq/L BUN 37 H (7-18) mg/dL Creatinine 5.63 H (0.50-1.00) mg/dL Estimated GFR 8 L (>89) mL/min POC Glucose 155 H (68-110) mg/dl Random Glucose 126 H (74-106) mg/dL Calcium 9.7 (8.5-10.1) mg/dL Phosphorus (2.5-4.9) mg/dL Magnesium (1.5-2.5) mg/dL Total Bilirubin 0.4 (0.2-1.0) mg/dL AST 27 (15-37) U/L ALT 32 (10-53) U/L Alkaline Phosphatase 86 (45-117) U/L Ammonia (11-32) mcmol/L Troponin I (0.02-0.05) ng/mL Total Protein 8.5 H (6.4-8.2) g/dL Albumin 3.1 L (3.4-5.0) g/dL Urine Color (Yellw/Straw) Urine Clarity (Clear) Urine pH (5.0-8.5) Ur Specific [place] (1.002-1.035) Urine Protein (Neg-Trace) mg/dL Urine Glucose (UA) (Negative) mg/dL Urine Ketones (Negative) mg/dL Urine Occult Blood (Negative) Urine Nitrate (Negative) Urine Bilirubin (Negative) Urine Urobilinogen (Less than 2) mg/dL Ur Leukocyte Esterase (Negative) Urine RBC (0-3) /hpf Urine WBC (0-5) /hpf Ur Squamous Epith Cells (0-5) /hpf Urine Bacteria (None) /hpf Micro UA Comment Ur Microscopic Review Urine Culture Comments Nasal Screen MRSA (PCR) (Negative) Random Vancomycin Comment Urine Opiates Screen (Neg) Ur Barbiturates Screen (Neg) Ur Amphetamines Screen (Neg) U Benzodiazepines Scrn (Neg) Urine Cocaine Screen (Neg) U Cannabinoids Screen (Neg) Hepatitis A IgM Ab (Nonreactive) Hep Bs Antigen (Nonreactive) Hep B Core IgM Ab (Nonreactive) Hep C IgG Ab (Nonreactive) Blood Type Antibody Screen 09/16/18 09/16/18 09/16/18 Range/Units 12:14 14:10 15:42 WBC (4.0-11.0) th/mm3 RBC (4.00-5.30) mil/mm3 Hgb (11.6-15.3) gm/dL Hct (35.0-46.0) % MCV (80.0-100.0) fL MCH (27.0-34.0) pg MCHC (32.0-36.0) % RDW (11.6-17.2) % Plt Count (150-450) th/mm3 MPV (7.0-11.0) fL Prelim Diff (Auto) Neut % (Auto) (16.0-70.0) % Lymph % (Auto) (9.0-44.0) % Loving % (Auto) (0.0-8.0) % Eos % (Auto) (0.0-4.0) % Baso % (Auto) (0.0-2.0) % Neut # (Auto) (1.8-7.7) th/mm3 Lymph # (Auto) (1.0-4.8) th/mm3 Loving # (Auto) (0.0-0.9) th/mm3 Eos # (Auto) (0.0-0.4) th/mm3 Baso # (Auto) (0.0-0.2) th/mm3 WBC Differential Diff Scan Differential Comment Platelet Estimate (Normal) Platelet Morphology (Normal) PT (9.8-11.6) sec INR Ratio APTT (23.4-31.7) sec Puncture Site [place] Patient Temperature 98.6 O2 Saturation 95 (90-100) % ABG pH 7.43 H (7.380-7.420) ABG pCO2 41 (38-42) mmHg ABG pO2 105 (61-120) mmHG ABG HCO3 27 H (22-26) mmol/L ABG O2 Content 15.8 (12.0-20.0) Vol % ABG Base Excess 2.5 H (-2-2) mmol/L ABG Methemoglobin 1.6 (0-2) % Gabe Test Present Hemoglobin 11.7 L (12.0-16.0) G/DL Carboxyhemoglobin 0.9 (0-4) % O2 Delivery Device Ventilator Vent Setting Cpap+7/ps+8 Inspired O2 35 % Critical Value No Sodium (136-145) meq/L Potassium (3.5-5.1) meq/L Chloride (98-107) meq/L Carbon Dioxide (21.0-32.0) meq/L Anion Gap (5-15) meq/L BUN (7-18) mg/dL Creatinine (0.50-1.00) mg/dL Estimated GFR (>89) mL/min POC Glucose 152 H 188 H (68-110) mg/dl Random Glucose (74-106) mg/dL Calcium (8.5-10.1) mg/dL Phosphorus (2.5-4.9) mg/dL Magnesium (1.5-2.5) mg/dL Total Bilirubin (0.2-1.0) mg/dL AST (15-37) U/L ALT (10-53) U/L Alkaline Phosphatase (45-117) U/L Ammonia (11-32) mcmol/L Troponin I (0.02-0.05) ng/mL Total Protein (6.4-8.2) g/dL Albumin (3.4-5.0) g/dL Urine Color (Yellw/Straw) Urine Clarity (Clear) Urine pH (5.0-8.5) Ur Specific [place] (1.002-1.035) Urine Protein (Neg-Trace) mg/dL Urine Glucose (UA) (Negative) mg/dL Urine Ketones (Negative) mg/dL Urine Occult Blood (Negative) Urine Nitrate (Negative) Urine Bilirubin (Negative) Urine Urobilinogen (Less than 2) mg/dL Ur Leukocyte Esterase (Negative) Urine RBC (0-3) /hpf Urine WBC (0-5) /hpf Ur Squamous Epith Cells (0-5) /hpf Urine Bacteria (None) /hpf Micro UA Comment Ur Microscopic Review Urine Culture Comments Nasal Screen MRSA (PCR) (Negative) Random Vancomycin Comment Urine Opiates Screen (Neg) Ur Barbiturates Screen (Neg) Ur Amphetamines Screen (Neg) U Benzodiazepines Scrn (Neg) Urine Cocaine Screen (Neg) U Cannabinoids Screen (Neg) Hepatitis A IgM Ab (Nonreactive) Hep Bs Antigen (Nonreactive) Hep B Core IgM Ab (Nonreactive) Hep C IgG Ab (Nonreactive) Blood Type Antibody Screen 09/16/18 09/16/18 09/16/18 Range/Units 20:14 21:45 23:34 WBC (4.0-11.0) th/mm3 RBC (4.00-5.30) mil/mm3 Hgb (11.6-15.3) gm/dL Hct (35.0-46.0) % MCV (80.0-100.0) fL MCH (27.0-34.0) pg MCHC (32.0-36.0) % RDW (11.6-17.2) % Plt Count (150-450) th/mm3 MPV (7.0-11.0) fL Prelim Diff (Auto) Neut % (Auto) (16.0-70.0) % Lymph % (Auto) (9.0-44.0) % Loving % (Auto) (0.0-8.0) % Eos % (Auto) (0.0-4.0) % Baso % (Auto) (0.0-2.0) % Neut # (Auto) (1.8-7.7) th/mm3 Lymph # (Auto) (1.0-4.8) th/mm3 Loving # (Auto) (0.0-0.9) th/mm3 Eos # (Auto) (0.0-0.4) th/mm3 Baso # (Auto) (0.0-0.2) th/mm3 WBC Differential Diff Scan Differential Comment Platelet Estimate (Normal) Platelet Morphology (Normal) PT (9.8-11.6) sec INR Ratio APTT 35.7 H (23.4-31.7) sec Puncture Site Patient Temperature O2 Saturation (90-100) % ABG pH (7.380-7.420) ABG pCO2 (38-42) mmHg ABG pO2 (61-120) mmHG ABG HCO3 (22-26) mmol/L ABG O2 Content (12.0-20.0) Vol % ABG Base Excess (-2-2) mmol/L ABG Methemoglobin (0-2) % Gabe Test Hemoglobin (12.0-16.0) G/DL Carboxyhemoglobin (0-4) % O2 Delivery Device Vent Setting Inspired O2 % Critical Value Sodium (136-145) meq/L Potassium (3.5-5.1) meq/L Chloride (98-107) meq/L Carbon Dioxide (21.0-32.0) meq/L Anion Gap (5-15) meq/L BUN (7-18) mg/dL Creatinine (0.50-1.00) mg/dL Estimated GFR (>89) mL/min POC Glucose 148 H 130 H (68-110) mg/dl Random Glucose (74-106) mg/dL Calcium (8.5-10.1) mg/dL Phosphorus (2.5-4.9) mg/dL Magnesium (1.5-2.5) mg/dL Total Bilirubin (0.2-1.0) mg/dL AST (15-37) U/L ALT (10-53) U/L Alkaline Phosphatase (45-117) U/L Ammonia (11-32) mcmol/L Troponin I (0.02-0.05) ng/mL Total Protein (6.4-8.2) g/dL Albumin (3.4-5.0) g/dL Urine Color (Yellw/Straw) Urine Clarity (Clear) Urine pH (5.0-8.5) Ur Specific [place] (1.002-1.035) Urine Protein (Neg-Trace) mg/dL Urine Glucose (UA) (Negative) mg/dL Urine Ketones (Negative) mg/dL Urine Occult Blood (Negative) Urine Nitrate (Negative) Urine Bilirubin (Negative) Urine Urobilinogen (Less than 2) mg/dL Ur Leukocyte Esterase (Negative) Urine RBC (0-3) /hpf Urine WBC (0-5) /hpf Ur Squamous Epith Cells (0-5) /hpf Urine Bacteria (None) /hpf Micro UA Comment Ur Microscopic Review Urine Culture Comments Nasal Screen MRSA (PCR) (Negative) Random Vancomycin Comment Urine Opiates Screen (Neg) Ur Barbiturates Screen (Neg) Ur Amphetamines Screen (Neg) U Benzodiazepines Scrn (Neg) Urine Cocaine Screen (Neg) U Cannabinoids Screen (Neg) Hepatitis A IgM Ab (Nonreactive) Hep Bs Antigen (Nonreactive) Hep B Core IgM Ab (Nonreactive) Hep C IgG Ab (Nonreactive) Blood Type Antibody Screen 09/17/18 09/17/18 09/17/18 Range/Units 06:09 06:09 06:09 WBC 13.5 H (4.0-11.0) th/mm3 RBC 4.35 (4.00-5.30) mil/mm3 Hgb 11.3 L (11.6-15.3) gm/dL Hct 35.8 (35.0-46.0) % MCV 82.3 (80.0-100.0) fL MCH 25.9 L (27.0-34.0) pg MCHC 31.5 L (32.0-36.0) % RDW 17.4 H (11.6-17.2) % Plt Count 417 (150-450) th/mm3 MPV 7.8 (7.0-11.0) fL Prelim Diff (Auto) Neut % (Auto) (16.0-70.0) % Lymph % (Auto) (9.0-44.0) % Loving % (Auto) (0.0-8.0) % Eos % (Auto) (0.0-4.0) % Baso % (Auto) (0.0-2.0) % Neut # (Auto) (1.8-7.7) th/mm3 Lymph # (Auto) (1.0-4.8) th/mm3 Loving # (Auto) (0.0-0.9) th/mm3 Eos # (Auto) (0.0-0.4) th/mm3 Baso # (Auto) (0.0-0.2) th/mm3 WBC Differential Diff Scan Differential Comment Platelet Estimate (Normal) Platelet Morphology (Normal) PT (9.8-11.6) sec INR Ratio APTT 39.9 H (23.4-31.7) sec Puncture Site Patient Temperature O2 Saturation (90-100) % ABG pH (7.380-7.420) ABG pCO2 (38-42) mmHg ABG pO2 (61-120) mmHG ABG HCO3 (22-26) mmol/L ABG O2 Content (12.0-20.0) Vol % ABG Base Excess (-2-2) mmol/L ABG Methemoglobin (0-2) % Gabe Test Hemoglobin (12.0-16.0) G/DL Carboxyhemoglobin (0-4) % O2 Delivery Device Vent Setting Inspired O2 % Critical Value Sodium 137 (136-145) meq/L Potassium 3.6 (3.5-5.1) meq/L Chloride 94 L (98-107) meq/L Carbon Dioxide 27.6 (21.0-32.0) meq/L Anion Gap 15 (5-15) meq/L BUN 37 H (7-18) mg/dL Creatinine 6.06 H (0.50-1.00) mg/dL Estimated GFR 7 L (>89) mL/min POC Glucose (68-110) mg/dl Random Glucose 128 H (74-106) mg/dL Calcium 9.9 (8.5-10.1) mg/dL Phosphorus (2.5-4.9) mg/dL Magnesium (1.5-2.5) mg/dL Total Bilirubin 0.5 (0.2-1.0) mg/dL AST 22 (15-37) U/L ALT 26 (10-53) U/L Alkaline Phosphatase 93 (45-117) U/L Ammonia (11-32) mcmol/L Troponin I (0.02-0.05) ng/mL Total Protein 9.8 H D (6.4-8.2) g/dL Albumin 3.4 (3.4-5.0) g/dL Urine Color (Yellw/Straw) Urine Clarity (Clear) Urine pH (5.0-8.5) Ur Specific [place] (1.002-1.035) Urine Protein (Neg-Trace) mg/dL Urine Glucose (UA) (Negative) mg/dL Urine Ketones (Negative) mg/dL Urine Occult Blood (Negative) Urine Nitrate (Negative) Urine Bilirubin (Negative) Urine Urobilinogen (Less than 2) mg/dL Ur Leukocyte Esterase (Negative) Urine RBC (0-3) /hpf Urine WBC (0-5) /hpf Ur Squamous Epith Cells (0-5) /hpf Urine Bacteria (None) /hpf Micro UA Comment Ur Microscopic Review Urine Culture Comments Nasal Screen MRSA (PCR) (Negative) Random Vancomycin Comment Urine Opiates Screen (Neg) Ur Barbiturates Screen (Neg) Ur Amphetamines Screen (Neg) U Benzodiazepines Scrn (Neg) Urine Cocaine Screen (Neg) U Cannabinoids Screen (Neg) Hepatitis A IgM Ab (Nonreactive) Hep Bs Antigen (Nonreactive) Hep B Core IgM Ab (Nonreactive) Hep C IgG Ab (Nonreactive) Blood Type Antibody Screen 09/17/18 09/17/18 09/17/18 Range/Units 08:22 08:35 08:35 WBC (4.0-11.0) th/mm3 RBC (4.00-5.30) mil/mm3 Hgb (11.6-15.3) gm/dL Hct (35.0-46.0) % MCV (80.0-100.0) fL MCH (27.0-34.0) pg MCHC (32.0-36.0) % RDW (11.6-17.2) % Plt Count (150-450) th/mm3 MPV (7.0-11.0) fL Prelim Diff (Auto) Neut % (Auto) (16.0-70.0) % Lymph % (Auto) (9.0-44.0) % Loving % (Auto) (0.0-8.0) % Eos % (Auto) (0.0-4.0) % Baso % (Auto) (0.0-2.0) % Neut # (Auto) (1.8-7.7) th/mm3 Lymph # (Auto) (1.0-4.8) th/mm3 Loving # (Auto) (0.0-0.9) th/mm3 Eos # (Auto) (0.0-0.4) th/mm3 Baso # (Auto) (0.0-0.2) th/mm3 WBC Differential Diff Scan Differential Comment Platelet Estimate (Normal) Platelet Morphology (Normal) PT (9.8-11.6) sec INR Ratio APTT (23.4-31.7) sec Puncture Site Patient Temperature O2 Saturation (90-100) % ABG pH (7.380-7.420) ABG pCO2 (38-42) mmHg ABG pO2 (61-120) mmHG ABG HCO3 (22-26) mmol/L ABG O2 Content (12.0-20.0) Vol % ABG Base Excess (-2-2) mmol/L ABG Methemoglobin (0-2) % Gabe Test Hemoglobin (12.0-16.0) G/DL Carboxyhemoglobin (0-4) % O2 Delivery Device Vent Setting Inspired O2 % Critical Value Sodium 133 L (136-145) meq/L Potassium 3.5 (3.5-5.1) meq/L Chloride 92 L (98-107) meq/L Carbon Dioxide 25.5 (21.0-32.0) meq/L Anion Gap 16 H (5-15) meq/L BUN 37 H (7-18) mg/dL Creatinine 6.32 H (0.50-1.00) mg/dL Estimated GFR 7 L (>89) mL/min POC Glucose 124 H (68-110) mg/dl Random Glucose 156 H (74-106) mg/dL Calcium 10.1 (8.5-10.1) mg/dL Phosphorus (2.5-4.9) mg/dL Magnesium (1.5-2.5) mg/dL Total Bilirubin 0.5 (0.2-1.0) mg/dL AST 22 (15-37) U/L ALT 27 (10-53) U/L Alkaline Phosphatase 92 (45-117) U/L Ammonia 20 (11-32) mcmol/L Troponin I (0.02-0.05) ng/mL Total Protein 9.5 H (6.4-8.2) g/dL Albumin 3.3 L (3.4-5.0) g/dL Urine Color (Yellw/Straw) Urine Clarity (Clear) Urine pH (5.0-8.5) Ur Specific [place] (1.002-1.035) Urine Protein (Neg-Trace) mg/dL Urine Glucose (UA) (Negative) mg/dL Urine Ketones (Negative) mg/dL Urine Occult Blood (Negative) Urine Nitrate (Negative) Urine Bilirubin (Negative) Urine Urobilinogen (Less than 2) mg/dL Ur Leukocyte Esterase (Negative) Urine RBC (0-3) /hpf Urine WBC (0-5) /hpf Ur Squamous Epith Cells (0-5) /hpf Urine Bacteria (None) /hpf Micro UA Comment Ur Microscopic Review Urine Culture Comments Nasal Screen MRSA (PCR) (Negative) Random Vancomycin Comment Urine Opiates Screen (Neg) Ur Barbiturates Screen (Neg) Ur Amphetamines Screen (Neg) U Benzodiazepines Scrn (Neg) Urine Cocaine Screen (Neg) U Cannabinoids Screen (Neg) Hepatitis A IgM Ab (Nonreactive) Hep Bs Antigen (Nonreactive) Hep B Core IgM Ab (Nonreactive) Hep C IgG Ab (Nonreactive) Blood Type Antibody Screen 09/17/18 09/17/18 09/17/18 Range/Units 09:00 12:12 19:50 WBC 12.4 H (4.0-11.0) th/mm3 RBC 4.09 (4.00-5.30) mil/mm3 Hgb 10.7 L (11.6-15.3) gm/dL Hct 33.6 L (35.0-46.0) % MCV 82.3 (80.0-100.0) fL MCH 26.1 L (27.0-34.0) pg MCHC 31.8 L (32.0-36.0) % RDW 17.1 (11.6-17.2) % Plt Count 388 (150-450) th/mm3 MPV 7.8 (7.0-11.0) fL Prelim Diff (Auto) Neut % (Auto) (16.0-70.0) % Lymph % (Auto) (9.0-44.0) % Loving % (Auto) (0.0-8.0) % Eos % (Auto) (0.0-4.0) % Baso % (Auto) (0.0-2.0) % Neut # (Auto) (1.8-7.7) th/mm3 Lymph # (Auto) (1.0-4.8) th/mm3 Loving # (Auto) (0.0-0.9) th/mm3 Eos # (Auto) (0.0-0.4) th/mm3 Baso # (Auto) (0.0-0.2) th/mm3 WBC Differential Diff Scan Differential Comment Platelet Estimate (Normal) Platelet Morphology (Normal) PT (9.8-11.6) sec INR Ratio APTT (23.4-31.7) sec Puncture Site Patient Temperature O2 Saturation (90-100) % ABG pH (7.380-7.420) ABG pCO2 (38-42) mmHg ABG pO2 (61-120) mmHG ABG HCO3 (22-26) mmol/L ABG O2 Content (12.0-20.0) Vol % ABG Base Excess (-2-2) mmol/L ABG Methemoglobin (0-2) % Gabe Test Hemoglobin (12.0-16.0) G/DL Carboxyhemoglobin (0-4) % O2 Delivery Device Vent Setting Inspired O2 % Critical Value Sodium (136-145) meq/L Potassium (3.5-5.1) meq/L Chloride (98-107) meq/L Carbon Dioxide (21.0-32.0) meq/L Anion Gap (5-15) meq/L BUN (7-18) mg/dL Creatinine (0.50-1.00) mg/dL Estimated GFR (>89) mL/min POC Glucose 185 H 169 H (68-110) mg/dl Random Glucose (74-106) mg/dL Calcium (8.5-10.1) mg/dL Phosphorus (2.5-4.9) mg/dL Magnesium (1.5-2.5) mg/dL Total Bilirubin (0.2-1.0) mg/dL AST (15-37) U/L ALT (10-53) U/L Alkaline Phosphatase (45-117) U/L Ammonia (11-32) mcmol/L Troponin I (0.02-0.05) ng/mL Total Protein (6.4-8.2) g/dL Albumin (3.4-5.0) g/dL Urine Color (Yellw/Straw) Urine Clarity (Clear) Urine pH (5.0-8.5) Ur Specific [place] (1.002-1.035) Urine Protein (Neg-Trace) mg/dL Urine Glucose (UA) (Negative) mg/dL Urine Ketones (Negative) mg/dL Urine Occult Blood (Negative) Urine Nitrate (Negative) Urine Bilirubin (Negative) Urine Urobilinogen (Less than 2) mg/dL Ur Leukocyte Esterase (Negative) Urine RBC (0-3) /hpf Urine WBC (0-5) /hpf Ur Squamous Epith Cells (0-5) /hpf Urine Bacteria (None) /hpf Micro UA Comment Ur Microscopic Review Urine Culture Comments Nasal Screen MRSA (PCR) (Negative) Random Vancomycin Comment Urine Opiates Screen (Neg) Ur Barbiturates Screen (Neg) Ur Amphetamines Screen (Neg) U Benzodiazepines Scrn (Neg) Urine Cocaine Screen (Neg) U Cannabinoids Screen (Neg) Hepatitis A IgM Ab (Nonreactive) Hep Bs Antigen (Nonreactive) Hep B Core IgM Ab (Nonreactive) Hep C IgG Ab (Nonreactive) Blood Type Antibody Screen 09/17/18 09/18/18 09/18/18 Range/Units 20:40 03:57 05:07 WBC 16.3 H (4.0-11.0) th/mm3 RBC 4.68 (4.00-5.30) mil/mm3 Hgb 12.2 (11.6-15.3) gm/dL Hct 38.0 (35.0-46.0) % MCV 81.3 (80.0-100.0) fL MCH 26.1 L (27.0-34.0) pg MCHC 32.1 (32.0-36.0) % RDW 17.5 H (11.6-17.2) % Plt Count 470 H (150-450) th/mm3 MPV 7.8 (7.0-11.0) fL Prelim Diff (Auto) Slide review pending Neut % (Auto) 60.7 (16.0-70.0) % Lymph % (Auto) 18.9 (9.0-44.0) % Loving % (Auto) 13.6 H (0.0-8.0) % Eos % (Auto) 6.2 H (0.0-4.0) % Baso % (Auto) 0.6 (0.0-2.0) % Neut # (Auto) 9.9 H (1.8-7.7) th/mm3 Lymph # (Auto) 3.1 (1.0-4.8) th/mm3 Loving # (Auto) 2.2 H (0.0-0.9) th/mm3 Eos # (Auto) 1.0 H (0.0-0.4) th/mm3 Baso # (Auto) 0.1 (0.0-0.2) th/mm3 WBC Differential . Diff Scan Auto diff confirmed Differential Comment . Platelet Estimate High H (Normal) Platelet Morphology Normal (Normal) PT (9.8-11.6) sec INR Ratio APTT 40.9 H (23.4-31.7) sec Puncture Site Patient Temperature O2 Saturation (90-100) % ABG pH (7.380-7.420) ABG pCO2 (38-42) mmHg ABG pO2 (61-120) mmHG ABG HCO3 (22-26) mmol/L ABG O2 Content (12.0-20.0) Vol % ABG Base Excess (-2-2) mmol/L ABG Methemoglobin (0-2) % Gabe Test Hemoglobin (12.0-16.0) G/DL Carboxyhemoglobin (0-4) % O2 Delivery Device Vent Setting Inspired O2 % Critical Value Sodium (136-145) meq/L Potassium (3.5-5.1) meq/L Chloride (98-107) meq/L Carbon Dioxide (21.0-32.0) meq/L Anion Gap (5-15) meq/L BUN (7-18) mg/dL Creatinine (0.50-1.00) mg/dL Estimated GFR (>89) mL/min POC Glucose 146 H (68-110) mg/dl Random Glucose (74-106) mg/dL Calcium (8.5-10.1) mg/dL Phosphorus (2.5-4.9) mg/dL Magnesium (1.5-2.5) mg/dL Total Bilirubin (0.2-1.0) mg/dL AST (15-37) U/L ALT (10-53) U/L Alkaline Phosphatase (45-117) U/L Ammonia (11-32) mcmol/L Troponin I (0.02-0.05) ng/mL Total Protein (6.4-8.2) g/dL Albumin (3.4-5.0) g/dL Urine Color (Yellw/Straw) Urine Clarity (Clear) Urine pH (5.0-8.5) Ur Specific [place] (1.002-1.035) Urine Protein (Neg-Trace) mg/dL Urine Glucose (UA) (Negative) mg/dL Urine Ketones (Negative) mg/dL Urine Occult Blood (Negative) Urine Nitrate (Negative) Urine Bilirubin (Negative) Urine Urobilinogen (Less than 2) mg/dL Ur Leukocyte Esterase (Negative) Urine RBC (0-3) /hpf Urine WBC (0-5) /hpf Ur Squamous Epith Cells (0-5) /hpf Urine Bacteria (None) /hpf Micro UA Comment Ur Microscopic Review Urine Culture Comments Nasal Screen MRSA (PCR) (Negative) Random Vancomycin Comment Urine Opiates Screen (Neg) Ur Barbiturates Screen (Neg) Ur Amphetamines Screen (Neg) U Benzodiazepines Scrn (Neg) Urine Cocaine Screen (Neg) U Cannabinoids Screen (Neg) Hepatitis A IgM Ab (Nonreactive) Hep Bs Antigen (Nonreactive) Hep B Core IgM Ab (Nonreactive) Hep C IgG Ab (Nonreactive) Blood Type Antibody Screen 09/18/18 09/18/18 09/18/18 Range/Units 05:07 05:07 05:07 WBC (4.0-11.0) th/mm3 RBC (4.00-5.30) mil/mm3 Hgb (11.6-15.3) gm/dL Hct (35.0-46.0) % MCV (80.0-100.0) fL MCH (27.0-34.0) pg MCHC (32.0-36.0) % RDW (11.6-17.2) % Plt Count (150-450) th/mm3 MPV (7.0-11.0) fL Prelim Diff (Auto) Neut % (Auto) (16.0-70.0) % Lymph % (Auto) (9.0-44.0) % Loving % (Auto) (0.0-8.0) % Eos % (Auto) (0.0-4.0) % Baso % (Auto) (0.0-2.0) % Neut # (Auto) (1.8-7.7) th/mm3 Lymph # (Auto) (1.0-4.8) th/mm3 Loving # (Auto) (0.0-0.9) th/mm3 Eos # (Auto) (0.0-0.4) th/mm3 Baso # (Auto) (0.0-0.2) th/mm3 WBC Differential Diff Scan Differential Comment Platelet Estimate (Normal) Platelet Morphology (Normal) PT (9.8-11.6) sec INR Ratio APTT 44.1 H (23.4-31.7) sec Puncture Site Patient Temperature O2 Saturation (90-100) % ABG pH (7.380-7.420) ABG pCO2 (38-42) mmHg ABG pO2 (61-120) mmHG ABG HCO3 (22-26) mmol/L ABG O2 Content (12.0-20.0) Vol % ABG Base Excess (-2-2) mmol/L ABG Methemoglobin (0-2) % Gabe Test Hemoglobin (12.0-16.0) G/DL Carboxyhemoglobin (0-4) % O2 Delivery Device Vent Setting Inspired O2 % Critical Value Sodium 131 L (136-145) meq/L Potassium 3.5 (3.5-5.1) meq/L Chloride 90 L (98-107) meq/L Carbon Dioxide 24.5 (21.0-32.0) meq/L Anion Gap 17 H (5-15) meq/L BUN 39 H (7-18) mg/dL Creatinine 6.55 H (0.50-1.00) mg/dL Estimated GFR 7 L (>89) mL/min POC Glucose (68-110) mg/dl Random Glucose 147 H (74-106) mg/dL Calcium 10.7 H (8.5-10.1) mg/dL Phosphorus 9.0 H (2.5-4.9) mg/dL Magnesium (1.5-2.5) mg/dL Total Bilirubin 0.5 (0.2-1.0) mg/dL AST 23 (15-37) U/L ALT 29 (10-53) U/L Alkaline Phosphatase 98 (45-117) U/L Ammonia (11-32) mcmol/L Troponin I (0.02-0.05) ng/mL Total Protein 10.6 H D (6.4-8.2) g/dL Albumin 3.9 D (3.4-5.0) g/dL Urine Color (Yellw/Straw) Urine Clarity (Clear) Urine pH (5.0-8.5) Ur Specific [place] (1.002-1.035) Urine Protein (Neg-Trace) mg/dL Urine Glucose (UA) (Negative) mg/dL Urine Ketones (Negative) mg/dL Urine Occult Blood (Negative) Urine Nitrate (Negative) Urine Bilirubin (Negative) Urine Urobilinogen (Less than 2) mg/dL Ur Leukocyte Esterase (Negative) Urine RBC (0-3) /hpf Urine WBC (0-5) /hpf Ur Squamous Epith Cells (0-5) /hpf Urine Bacteria (None) /hpf Micro UA Comment Ur Microscopic Review Urine Culture Comments Nasal Screen MRSA (PCR) (Negative) Random Vancomycin Comment Urine Opiates Screen (Neg) Ur Barbiturates Screen (Neg) Ur Amphetamines Screen (Neg) U Benzodiazepines Scrn (Neg) Urine Cocaine Screen (Neg) U Cannabinoids Screen (Neg) Hepatitis A IgM Ab (Nonreactive) Hep Bs Antigen (Nonreactive) Hep B Core IgM Ab (Nonreactive) Hep C IgG Ab (Nonreactive) Blood Type Antibody Screen 09/18/18 09/18/18 09/18/18 Range/Units 08:36 13:08 16:28 WBC (4.0-11.0) th/mm3 RBC (4.00-5.30) mil/mm3 Hgb (11.6-15.3) gm/dL Hct (35.0-46.0) % MCV (80.0-100.0) fL MCH (27.0-34.0) pg MCHC (32.0-36.0) % RDW (11.6-17.2) % Plt Count (150-450) th/mm3 MPV (7.0-11.0) fL Prelim Diff (Auto) Neut % (Auto) (16.0-70.0) % Lymph % (Auto) (9.0-44.0) % Loving % (Auto) (0.0-8.0) % Eos % (Auto) (0.0-4.0) % Baso % (Auto) (0.0-2.0) % Neut # (Auto) (1.8-7.7) th/mm3 Lymph # (Auto) (1.0-4.8) th/mm3 Loving # (Auto) (0.0-0.9) th/mm3 Eos # (Auto) (0.0-0.4) th/mm3 Baso # (Auto) (0.0-0.2) th/mm3 WBC Differential Diff Scan Differential Comment Platelet Estimate (Normal) Platelet Morphology (Normal) PT (9.8-11.6) sec INR Ratio APTT (23.4-31.7) sec Puncture Site Patient Temperature O2 Saturation (90-100) % ABG pH (7.380-7.420) ABG pCO2 (38-42) mmHg ABG pO2 (61-120) mmHG ABG HCO3 (22-26) mmol/L ABG O2 Content (12.0-20.0) Vol % ABG Base Excess (-2-2) mmol/L ABG Methemoglobin (0-2) % Gabe Test Hemoglobin (12.0-16.0) G/DL Carboxyhemoglobin (0-4) % O2 Delivery Device Vent Setting Inspired O2 % Critical Value Sodium (136-145) meq/L Potassium (3.5-5.1) meq/L Chloride (98-107) meq/L Carbon Dioxide (21.0-32.0) meq/L Anion Gap (5-15) meq/L BUN (7-18) mg/dL Creatinine (0.50-1.00) mg/dL Estimated GFR (>89) mL/min POC Glucose 151 H 142 H 134 H (68-110) mg/dl Random Glucose (74-106) mg/dL Calcium (8.5-10.1) mg/dL Phosphorus (2.5-4.9) mg/dL Magnesium (1.5-2.5) mg/dL Total Bilirubin (0.2-1.0) mg/dL AST (15-37) U/L ALT (10-53) U/L Alkaline Phosphatase (45-117) U/L Ammonia (11-32) mcmol/L Troponin I (0.02-0.05) ng/mL Total Protein (6.4-8.2) g/dL Albumin (3.4-5.0) g/dL Urine Color (Yellw/Straw) Urine Clarity (Clear) Urine pH (5.0-8.5) Ur Specific [place] (1.002-1.035) Urine Protein (Neg-Trace) mg/dL Urine Glucose (UA) (Negative) mg/dL Urine Ketones (Negative) mg/dL Urine Occult Blood (Negative) Urine Nitrate (Negative) Urine Bilirubin (Negative) Urine Urobilinogen (Less than 2) mg/dL Ur Leukocyte Esterase (Negative) Urine RBC (0-3) /hpf Urine WBC (0-5) /hpf Ur Squamous Epith Cells (0-5) /hpf Urine Bacteria (None) /hpf Micro UA Comment Ur Microscopic Review Urine Culture Comments Nasal Screen MRSA (PCR) (Negative) Random Vancomycin Comment Urine Opiates Screen (Neg) Ur Barbiturates Screen (Neg) Ur Amphetamines Screen (Neg) U Benzodiazepines Scrn (Neg) Urine Cocaine Screen (Neg) U Cannabinoids Screen (Neg) Hepatitis A IgM Ab (Nonreactive) Hep Bs Antigen (Nonreactive) Hep B Core IgM Ab (Nonreactive) Hep C IgG Ab (Nonreactive) Blood Type Antibody Screen 09/18/18 09/19/18 09/19/18 Range/Units 19:55 00:19 04:20 WBC (4.0-11.0) th/mm3 RBC (4.00-5.30) mil/mm3 Hgb (11.6-15.3) gm/dL Hct (35.0-46.0) % MCV (80.0-100.0) fL MCH (27.0-34.0) pg MCHC (32.0-36.0) % RDW (11.6-17.2) % Plt Count (150-450) th/mm3 MPV (7.0-11.0) fL Prelim Diff (Auto) Neut % (Auto) (16.0-70.0) % Lymph % (Auto) (9.0-44.0) % Loving % (Auto) (0.0-8.0) % Eos % (Auto) (0.0-4.0) % Baso % (Auto) (0.0-2.0) % Neut # (Auto) (1.8-7.7) th/mm3 Lymph # (Auto) (1.0-4.8) th/mm3 Loving # (Auto) (0.0-0.9) th/mm3 Eos # (Auto) (0.0-0.4) th/mm3 Baso # (Auto) (0.0-0.2) th/mm3 WBC Differential Diff Scan Differential Comment Platelet Estimate (Normal) Platelet Morphology (Normal) PT (9.8-11.6) sec INR Ratio APTT (23.4-31.7) sec Puncture Site Patient Temperature O2 Saturation (90-100) % ABG pH (7.380-7.420) ABG pCO2 (38-42) mmHg ABG pO2 (61-120) mmHG ABG HCO3 (22-26) mmol/L ABG O2 Content (12.0-20.0) Vol % ABG Base Excess (-2-2) mmol/L ABG Methemoglobin (0-2) % Gabe Test Hemoglobin (12.0-16.0) G/DL Carboxyhemoglobin (0-4) % O2 Delivery Device Vent Setting Inspired O2 % Critical Value Sodium (136-145) meq/L Potassium (3.5-5.1) meq/L Chloride (98-107) meq/L Carbon Dioxide (21.0-32.0) meq/L Anion Gap (5-15) meq/L BUN (7-18) mg/dL Creatinine (0.50-1.00) mg/dL Estimated GFR (>89) mL/min POC Glucose 123 H 133 H 126 H (68-110) mg/dl Random Glucose (74-106) mg/dL Calcium (8.5-10.1) mg/dL Phosphorus (2.5-4.9) mg/dL Magnesium (1.5-2.5) mg/dL Total Bilirubin (0.2-1.0) mg/dL AST (15-37) U/L ALT (10-53) U/L Alkaline Phosphatase (45-117) U/L Ammonia (11-32) mcmol/L Troponin I (0.02-0.05) ng/mL Total Protein (6.4-8.2) g/dL Albumin (3.4-5.0) g/dL Urine Color (Yellw/Straw) Urine Clarity (Clear) Urine pH (5.0-8.5) Ur Specific [place] (1.002-1.035) Urine Protein (Neg-Trace) mg/dL Urine Glucose (UA) (Negative) mg/dL Urine Ketones (Negative) mg/dL Urine Occult Blood (Negative) Urine Nitrate (Negative) Urine Bilirubin (Negative) Urine Urobilinogen (Less than 2) mg/dL Ur Leukocyte Esterase (Negative) Urine RBC (0-3) /hpf Urine WBC (0-5) /hpf Ur Squamous Epith Cells (0-5) /hpf Urine Bacteria (None) /hpf Micro UA Comment Ur Microscopic Review Urine Culture Comments Nasal Screen MRSA (PCR) (Negative) Random Vancomycin Comment Urine Opiates Screen (Neg) Ur Barbiturates Screen (Neg) Ur Amphetamines Screen (Neg) U Benzodiazepines Scrn (Neg) Urine Cocaine Screen (Neg) U Cannabinoids Screen (Neg) Hepatitis A IgM Ab (Nonreactive) Hep Bs Antigen (Nonreactive) Hep B Core IgM Ab (Nonreactive) Hep C IgG Ab (Nonreactive) Blood Type Antibody Screen 12/20/18 12/20/18 12/20/18 Range/Units 06:59 06:59 09:39 WBC 12.8 H (4.0-11.0) th/mm3 RBC 5.18 (4.00-5.30) mil/mm3 Hgb 13.5 (11.6-15.3) gm/dL Hct 42.4 (35.0-46.0) % MCV 81.7 (80.0-100.0) fL MCH 26.1 L (27.0-34.0) pg MCHC 32.0 (32.0-36.0) % RDW 17.4 H (11.6-17.2) % Plt Count 485 H (150-450) th/mm3 MPV 7.6 (7.0-11.0) fL Prelim Diff (Auto) Neut % (Auto) (16.0-70.0) % Lymph % (Auto) (9.0-44.0) % Loving % (Auto) (0.0-8.0) % Eos % (Auto) (0.0-4.0) % Baso % (Auto) (0.0-2.0) % Neut # (Auto) (1.8-7.7) th/mm3 Lymph # (Auto) (1.0-4.8) th/mm3 Loving # (Auto) (0.0-0.9) th/mm3 Eos # (Auto) (0.0-0.4) th/mm3 Baso # (Auto) (0.0-0.2) th/mm3 WBC Differential Diff Scan Differential Comment Platelet Estimate (Normal) Platelet Morphology (Normal) PT (9.8-11.6) sec INR Ratio APTT (23.4-31.7) sec Puncture Site Patient Temperature O2 Saturation (90-100) % ABG pH (7.380-7.420) ABG pCO2 (38-42) mmHg ABG pO2 (61-120) mmHG ABG HCO3 (22-26) mmol/L ABG O2 Content (12.0-20.0) Vol % ABG Base Excess (-2-2) mmol/L ABG Methemoglobin (0-2) % Gabe Test Hemoglobin (12.0-16.0) G/DL Carboxyhemoglobin (0-4) % O2 Delivery Device Vent Setting Inspired O2 % Critical Value Sodium 127 L (136-145) meq/L Potassium 3.5 (3.5-5.1) meq/L Chloride 86 L (98-107) meq/L Carbon Dioxide 22.8 (21.0-32.0) meq/L Anion Gap 18 H (5-15) meq/L BUN 57 H (7-18) mg/dL Creatinine 8.72 H (0.50-1.00) mg/dL Estimated GFR 5 L (>89) mL/min POC Glucose 128 H (68-110) mg/dl Random Glucose 120 H (74-106) mg/dL Calcium 10.3 H (8.5-10.1) mg/dL Phosphorus (2.5-4.9) mg/dL Magnesium (1.5-2.5) mg/dL Total Bilirubin 0.6 (0.2-1.0) mg/dL AST 21 (15-37) U/L ALT 26 (10-53) U/L Alkaline Phosphatase 104 (45-117) U/L Ammonia (11-32) mcmol/L Troponin I (0.02-0.05) ng/mL Total Protein 11.3 H D (6.4-8.2) g/dL Albumin 4.0 (3.4-5.0) g/dL Urine Color (Yellw/Straw) Urine Clarity (Clear) Urine pH (5.0-8.5) Ur Specific [place] (1.002-1.035) Urine Protein (Neg-Trace) mg/dL Urine Glucose (UA) (Negative) mg/dL Urine Ketones (Negative) mg/dL Urine Occult Blood (Negative) Urine Nitrate (Negative) Urine Bilirubin (Negative) Urine Urobilinogen (Less than 2) mg/dL Ur Leukocyte Esterase (Negative) Urine RBC (0-3) /hpf Urine WBC (0-5) /hpf Ur Squamous Epith Cells (0-5) /hpf Urine Bacteria (None) /hpf Micro UA Comment Ur Microscopic Review Urine Culture Comments Nasal Screen MRSA (PCR) (Negative) Random Vancomycin Comment Urine Opiates Screen (Neg) Ur Barbiturates Screen (Neg) Ur Amphetamines Screen (Neg) U Benzodiazepines Scrn (Neg) Urine Cocaine Screen (Neg) U Cannabinoids Screen (Neg) Hepatitis A IgM Ab (Nonreactive) Hep Bs Antigen (Nonreactive) Hep B Core IgM Ab (Nonreactive) Hep C IgG Ab (Nonreactive) Blood Type Antibody Screen 09/19/18 09/19/18 09/19/18 Range/Units 13:29 16:59 21:25 WBC (4.0-11.0) th/mm3 RBC (4.00-5.30) mil/mm3 Hgb (11.6-15.3) gm/dL Hct (35.0-46.0) % MCV (80.0-100.0) fL MCH (27.0-34.0) pg MCHC (32.0-36.0) % RDW (11.6-17.2) % Plt Count (150-450) th/mm3 MPV (7.0-11.0) fL Prelim Diff (Auto) Neut % (Auto) (16.0-70.0) % Lymph % (Auto) (9.0-44.0) % Loving % (Auto) (0.0-8.0) % Eos % (Auto) (0.0-4.0) % Baso % (Auto) (0.0-2.0) % Neut # (Auto) (1.8-7.7) th/mm3 Lymph # (Auto) (1.0-4.8) th/mm3 Loving # (Auto) (0.0-0.9) th/mm3 Eos # (Auto) (0.0-0.4) th/mm3 Baso # (Auto) (0.0-0.2) th/mm3 WBC Differential Diff Scan Differential Comment Platelet Estimate (Normal) Platelet Morphology (Normal) PT (9.8-11.6) sec INR Ratio APTT (23.4-31.7) sec Puncture Site Patient Temperature O2 Saturation (90-100) % ABG pH (7.380-7.420) ABG pCO2 (38-42) mmHg ABG pO2 (61-120) mmHG ABG HCO3 (22-26) mmol/L ABG O2 Content (12.0-20.0) Vol % ABG Base Excess (-2-2) mmol/L ABG Methemoglobin (0-2) % Gabe Test Hemoglobin (12.0-16.0) G/DL Carboxyhemoglobin (0-4) % O2 Delivery Device Vent Setting Inspired O2 % Critical Value Sodium (136-145) meq/L Potassium (3.5-5.1) meq/L Chloride (98-107) meq/L Carbon Dioxide (21.0-32.0) meq/L Anion Gap (5-15) meq/L BUN (7-18) mg/dL Creatinine (0.50-1.00) mg/dL Estimated GFR (>89) mL/min POC Glucose 109 132 H 129 H (68-110) mg/dl Random Glucose (74-106) mg/dL Calcium (8.5-10.1) mg/dL Phosphorus (2.5-4.9) mg/dL Magnesium (1.5-2.5) mg/dL Total Bilirubin (0.2-1.0) mg/dL AST (15-37) U/L ALT (10-53) U/L Alkaline Phosphatase (45-117) U/L Ammonia (11-32) mcmol/L Troponin I (0.02-0.05) ng/mL Total Protein (6.4-8.2) g/dL Albumin (3.4-5.0) g/dL Urine Color (Yellw/Straw) Urine Clarity (Clear) Urine pH (5.0-8.5) Ur Specific [place] (1.002-1.035) Urine Protein (Neg-Trace) mg/dL Urine Glucose (UA) (Negative) mg/dL Urine Ketones (Negative) mg/dL Urine Occult Blood (Negative) Urine Nitrate (Negative) Urine Bilirubin (Negative) Urine Urobilinogen (Less than 2) mg/dL Ur Leukocyte Esterase (Negative) Urine RBC (0-3) /hpf Urine WBC (0-5) /hpf Ur Squamous Epith Cells (0-5) /hpf Urine Bacteria (None) /hpf Micro UA Comment Ur Microscopic Review Urine Culture Comments Nasal Screen MRSA (PCR) (Negative) Random Vancomycin Comment Urine Opiates Screen (Neg) Ur Barbiturates Screen (Neg) Ur Amphetamines Screen (Neg) U Benzodiazepines Scrn (Neg) Urine Cocaine Screen (Neg) U Cannabinoids Screen (Neg) Hepatitis A IgM Ab (Nonreactive) Hep Bs Antigen (Nonreactive) Hep B Core IgM Ab (Nonreactive) Hep C IgG Ab (Nonreactive) Blood Type Antibody Screen 09/19/18 09/19/18 09/20/18 Range/Units 21:37 23:44 03:56 WBC (4.0-11.0) th/mm3 RBC (4.00-5.30) mil/mm3 Hgb (11.6-15.3) gm/dL Hct (35.0-46.0) % MCV (80.0-100.0) fL MCH (27.0-34.0) pg MCHC (32.0-36.0) % RDW (11.6-17.2) % Plt Count (150-450) th/mm3 MPV (7.0-11.0) fL Prelim Diff (Auto) Neut % (Auto) (16.0-70.0) % Lymph % (Auto) (9.0-44.0) % Loving % (Auto) (0.0-8.0) % Eos % (Auto) (0.0-4.0) % Baso % (Auto) (0.0-2.0) % Neut # (Auto) (1.8-7.7) th/mm3 Lymph # (Auto) (1.0-4.8) th/mm3 Loving # (Auto) (0.0-0.9) th/mm3 Eos # (Auto) (0.0-0.4) th/mm3 Baso # (Auto) (0.0-0.2) th/mm3 WBC Differential Diff Scan Differential Comment Platelet Estimate (Normal) Platelet Morphology (Normal) PT (9.8-11.6) sec INR Ratio APTT 44.8 H (23.4-31.7) sec Puncture Site Patient Temperature O2 Saturation (90-100) % ABG pH (7.380-7.420) ABG pCO2 (38-42) mmHg ABG pO2 (61-120) mmHG ABG HCO3 (22-26) mmol/L ABG O2 Content (12.0-20.0) Vol % ABG Base Excess (-2-2) mmol/L ABG Methemoglobin (0-2) % Gabe Test Hemoglobin (12.0-16.0) G/DL Carboxyhemoglobin (0-4) % O2 Delivery Device Vent Setting Inspired O2 % Critical Value Sodium (136-145) meq/L Potassium (3.5-5.1) meq/L Chloride (98-107) meq/L Carbon Dioxide (21.0-32.0) meq/L Anion Gap (5-15) meq/L BUN (7-18) mg/dL Creatinine (0.50-1.00) mg/dL Estimated GFR (>89) mL/min POC Glucose 128 H 125 H (68-110) mg/dl Random Glucose (74-106) mg/dL Calcium (8.5-10.1) mg/dL Phosphorus (2.5-4.9) mg/dL Magnesium (1.5-2.5) mg/dL Total Bilirubin (0.2-1.0) mg/dL AST (15-37) U/L ALT (10-53) U/L Alkaline Phosphatase (45-117) U/L Ammonia (11-32) mcmol/L Troponin I (0.02-0.05) ng/mL Total Protein (6.4-8.2) g/dL Albumin (3.4-5.0) g/dL Urine Color (Yellw/Straw) Urine Clarity (Clear) Urine pH (5.0-8.5) Ur Specific [place] (1.002-1.035) Urine Protein (Neg-Trace) mg/dL Urine Glucose (UA) (Negative) mg/dL Urine Ketones (Negative) mg/dL Urine Occult Blood (Negative) Urine Nitrate (Negative) Urine Bilirubin (Negative) Urine Urobilinogen (Less than 2) mg/dL Ur Leukocyte Esterase (Negative) Urine RBC (0-3) /hpf Urine WBC (0-5) /hpf Ur Squamous Epith Cells (0-5) /hpf Urine Bacteria (None) /hpf Micro UA Comment Ur Microscopic Review Urine Culture Comments Nasal Screen MRSA (PCR) (Negative) Random Vancomycin Comment Urine Opiates Screen (Neg) Ur Barbiturates Screen (Neg) Ur Amphetamines Screen (Neg) U Benzodiazepines Scrn (Neg) Urine Cocaine Screen (Neg) U Cannabinoids Screen (Neg) Hepatitis A IgM Ab (Nonreactive) Hep Bs Antigen (Nonreactive) Hep B Core IgM Ab (Nonreactive) Hep C IgG Ab (Nonreactive) Blood Type Antibody Screen 09/20/18 09/20/18 09/20/18 Range/Units 04:30 04:30 04:30 WBC 13.8 H (4.0-11.0) th/mm3 RBC 4.65 (4.00-5.30) mil/mm3 Hgb 12.3 (11.6-15.3) gm/dL Hct 37.5 (35.0-46.0) % MCV 80.5 (80.0-100.0) fL MCH 26.5 L (27.0-34.0) pg MCHC 32.9 (32.0-36.0) % RDW 17.1 (11.6-17.2) % Plt Count 496 H (150-450) th/mm3 MPV 8.0 (7.0-11.0) fL Prelim Diff (Auto) Neut % (Auto) (16.0-70.0) % Lymph % (Auto) (9.0-44.0) % Loving % (Auto) (0.0-8.0) % Eos % (Auto) (0.0-4.0) % Baso % (Auto) (0.0-2.0) % Neut # (Auto) (1.8-7.7) th/mm3 Lymph # (Auto) (1.0-4.8) th/mm3 Loving # (Auto) (0.0-0.9) th/mm3 Eos # (Auto) (0.0-0.4) th/mm3 Baso # (Auto) (0.0-0.2) th/mm3 WBC Differential Diff Scan Differential Comment Platelet Estimate (Normal) Platelet Morphology (Normal) PT (9.8-11.6) sec INR Ratio APTT 40.8 H (23.4-31.7) sec Puncture Site Patient Temperature O2 Saturation (90-100) % ABG pH (7.380-7.420) ABG pCO2 (38-42) mmHg ABG pO2 (61-120) mmHG ABG HCO3 (22-26) mmol/L ABG O2 Content (12.0-20.0) Vol % ABG Base Excess (-2-2) mmol/L ABG Methemoglobin (0-2) % Gabe Test Hemoglobin (12.0-16.0) G/DL Carboxyhemoglobin (0-4) % O2 Delivery Device Vent Setting Inspired O2 % Critical Value Sodium 129 L (136-145) meq/L Potassium 3.5 (3.5-5.1) meq/L Chloride 88 L (98-107) meq/L Carbon Dioxide 23.9 (21.0-32.0) meq/L Anion Gap 17 H (5-15) meq/L BUN 42 H (7-18) mg/dL Creatinine 7.62 H (0.50-1.00) mg/dL Estimated GFR 6 L (>89) mL/min POC Glucose (68-110) mg/dl Random Glucose 136 H (74-106) mg/dL Calcium 9.8 (8.5-10.1) mg/dL Phosphorus (2.5-4.9) mg/dL Magnesium (1.5-2.5) mg/dL Total Bilirubin 0.7 (0.2-1.0) mg/dL AST 20 (15-37) U/L ALT 23 (10-53) U/L Alkaline Phosphatase 94 (45-117) U/L Ammonia (11-32) mcmol/L Troponin I (0.02-0.05) ng/mL Total Protein 10.4 H D (6.4-8.2) g/dL Albumin 3.7 (3.4-5.0) g/dL Urine Color (Yellw/Straw) Urine Clarity (Clear) Urine pH (5.0-8.5) Ur Specific [place] (1.002-1.035) Urine Protein (Neg-Trace) mg/dL Urine Glucose (UA) (Negative) mg/dL Urine Ketones (Negative) mg/dL Urine Occult Blood (Negative) Urine Nitrate (Negative) Urine Bilirubin (Negative) Urine Urobilinogen (Less than 2) mg/dL Ur Leukocyte Esterase (Negative) Urine RBC (0-3) /hpf Urine WBC (0-5) /hpf Ur Squamous Epith Cells (0-5) /hpf Urine Bacteria (None) /hpf Micro UA Comment Ur Microscopic Review Urine Culture Comments Nasal Screen MRSA (PCR) (Negative) Random Vancomycin Comment Urine Opiates Screen (Neg) Ur Barbiturates Screen (Neg) Ur Amphetamines Screen (Neg) U Benzodiazepines Scrn (Neg) Urine Cocaine Screen (Neg) U Cannabinoids Screen (Neg) Hepatitis A IgM Ab (Nonreactive) Hep Bs Antigen (Nonreactive) Hep B Core IgM Ab (Nonreactive) Hep C IgG Ab (Nonreactive) Blood Type Antibody Screen 09/20/18 09/20/18 09/20/18 Range/Units 04:30 08:02 12:09 WBC (4.0-11.0) th/mm3 RBC (4.00-5.30) mil/mm3 Hgb (11.6-15.3) gm/dL Hct (35.0-46.0) % MCV (80.0-100.0) fL MCH (27.0-34.0) pg MCHC (32.0-36.0) % RDW (11.6-17.2) % Plt Count (150-450) th/mm3 MPV (7.0-11.0) fL Prelim Diff (Auto) Neut % (Auto) (16.0-70.0) % Lymph % (Auto) (9.0-44.0) % Loving % (Auto) (0.0-8.0) % Eos % (Auto) (0.0-4.0) % Baso % (Auto) (0.0-2.0) % Neut # (Auto) (1.8-7.7) th/mm3 Lymph # (Auto) (1.0-4.8) th/mm3 Loving # (Auto) (0.0-0.9) th/mm3 Eos # (Auto) (0.0-0.4) th/mm3 Baso # (Auto) (0.0-0.2) th/mm3 WBC Differential Diff Scan Differential Comment Platelet Estimate (Normal) Platelet Morphology (Normal) PT 11.0 (9.8-11.6) sec INR 1.1 Ratio APTT (23.4-31.7) sec Puncture Site Patient Temperature O2 Saturation (90-100) % ABG pH (7.380-7.420) ABG pCO2 (38-42) mmHg ABG pO2 (61-120) mmHG ABG HCO3 (22-26) mmol/L ABG O2 Content (12.0-20.0) Vol % ABG Base Excess (-2-2) mmol/L ABG Methemoglobin (0-2) % Gabe Test Hemoglobin (12.0-16.0) G/DL Carboxyhemoglobin (0-4) % O2 Delivery Device Vent Setting Inspired O2 % Critical Value Sodium (136-145) meq/L Potassium (3.5-5.1) meq/L Chloride (98-107) meq/L Carbon Dioxide (21.0-32.0) meq/L Anion Gap (5-15) meq/L BUN (7-18) mg/dL Creatinine (0.50-1.00) mg/dL Estimated GFR (>89) mL/min POC Glucose 104 161 H (68-110) mg/dl Random Glucose (74-106) mg/dL Calcium (8.5-10.1) mg/dL Phosphorus (2.5-4.9) mg/dL Magnesium (1.5-2.5) mg/dL Total Bilirubin (0.2-1.0) mg/dL AST (15-37) U/L ALT (10-53) U/L Alkaline Phosphatase (45-117) U/L Ammonia (11-32) mcmol/L Troponin I (0.02-0.05) ng/mL Total Protein (6.4-8.2) g/dL Albumin (3.4-5.0) g/dL Urine Color (Yellw/Straw) Urine Clarity (Clear) Urine pH (5.0-8.5) Ur Specific [place] (1.002-1.035) Urine Protein (Neg-Trace) mg/dL Urine Glucose (UA) (Negative) mg/dL Urine Ketones (Negative) mg/dL Urine Occult Blood (Negative) Urine Nitrate (Negative) Urine Bilirubin (Negative) Urine Urobilinogen (Less than 2) mg/dL Ur Leukocyte Esterase (Negative) Urine RBC (0-3) /hpf Urine WBC (0-5) /hpf Ur Squamous Epith Cells (0-5) /hpf Urine Bacteria (None) /hpf Micro UA Comment Ur Microscopic Review Urine Culture Comments Nasal Screen MRSA (PCR) (Negative) Random Vancomycin Comment Urine Opiates Screen (Neg) Ur Barbiturates Screen (Neg) Ur Amphetamines Screen (Neg) U Benzodiazepines Scrn (Neg) Urine Cocaine Screen (Neg) U Cannabinoids Screen (Neg) Hepatitis A IgM Ab (Nonreactive) Hep Bs Antigen (Nonreactive) Hep B Core IgM Ab (Nonreactive) Hep C IgG Ab (Nonreactive) Blood Type Antibody Screen 09/20/18 09/20/18 09/20/18 Range/Units 16:08 19:56 23:23 WBC (4.0-11.0) th/mm3 RBC (4.00-5.30) mil/mm3 Hgb (11.6-15.3) gm/dL Hct (35.0-46.0) % MCV (80.0-100.0) fL MCH (27.0-34.0) pg MCHC (32.0-36.0) % RDW (11.6-17.2) % Plt Count (150-450) th/mm3 MPV (7.0-11.0) fL Prelim Diff (Auto) Neut % (Auto) (16.0-70.0) % Lymph % (Auto) (9.0-44.0) % Loving % (Auto) (0.0-8.0) % Eos % (Auto) (0.0-4.0) % Baso % (Auto) (0.0-2.0) % Neut # (Auto) (1.8-7.7) th/mm3 Lymph # (Auto) (1.0-4.8) th/mm3 Loving # (Auto) (0.0-0.9) th/mm3 Eos # (Auto) (0.0-0.4) th/mm3 Baso # (Auto) (0.0-0.2) th/mm3 WBC Differential Diff Scan Differential Comment Platelet Estimate (Normal) Platelet Morphology (Normal) PT (9.8-11.6) sec INR Ratio APTT (23.4-31.7) sec Puncture Site Patient Temperature O2 Saturation (90-100) % ABG pH (7.380-7.420) ABG pCO2 (38-42) mmHg ABG pO2 (61-120) mmHG ABG HCO3 (22-26) mmol/L ABG O2 Content (12.0-20.0) Vol % ABG Base Excess (-2-2) mmol/L ABG Methemoglobin (0-2) % Gabe Test Hemoglobin (12.0-16.0) G/DL Carboxyhemoglobin (0-4) % O2 Delivery Device Vent Setting Inspired O2 % Critical Value Sodium (136-145) meq/L Potassium (3.5-5.1) meq/L Chloride (98-107) meq/L Carbon Dioxide (21.0-32.0) meq/L Anion Gap (5-15) meq/L BUN (7-18) mg/dL Creatinine (0.50-1.00) mg/dL Estimated GFR (>89) mL/min POC Glucose 108 89 128 H (68-110) mg/dl Random Glucose (74-106) mg/dL Calcium (8.5-10.1) mg/dL Phosphorus (2.5-4.9) mg/dL Magnesium (1.5-2.5) mg/dL Total Bilirubin (0.2-1.0) mg/dL AST (15-37) U/L ALT (10-53) U/L Alkaline Phosphatase (45-117) U/L Ammonia (11-32) mcmol/L Troponin I (0.02-0.05) ng/mL Total Protein (6.4-8.2) g/dL Albumin (3.4-5.0) g/dL Urine Color (Yellw/Straw) Urine Clarity (Clear) Urine pH (5.0-8.5) Ur Specific [place] (1.002-1.035) Urine Protein (Neg-Trace) mg/dL Urine Glucose (UA) (Negative) mg/dL Urine Ketones (Negative) mg/dL Urine Occult Blood (Negative) Urine Nitrate (Negative) Urine Bilirubin (Negative) Urine Urobilinogen (Less than 2) mg/dL Ur Leukocyte Esterase (Negative) Urine RBC (0-3) /hpf Urine WBC (0-5) /hpf Ur Squamous Epith Cells (0-5) /hpf Urine Bacteria (None) /hpf Micro UA Comment Ur Microscopic Review Urine Culture Comments Nasal Screen MRSA (PCR) (Negative) Random Vancomycin Comment Urine Opiates Screen (Neg) Ur Barbiturates Screen (Neg) Ur Amphetamines Screen (Neg) U Benzodiazepines Scrn (Neg) Urine Cocaine Screen (Neg) U Cannabinoids Screen (Neg) Hepatitis A IgM Ab (Nonreactive) Hep Bs Antigen (Nonreactive) Hep B Core IgM Ab (Nonreactive) Hep C IgG Ab (Nonreactive) Blood Type Antibody Screen 09/21/18 09/21/18 09/21/18 Range/Units 02:45 03:13 03:13 WBC 11.6 H (4.0-11.0) th/mm3 RBC 4.58 (4.00-5.30) mil/mm3 Hgb 12.1 (11.6-15.3) gm/dL Hct 36.8 (35.0-46.0) % MCV 80.3 (80.0-100.0) fL MCH 26.4 L (27.0-34.0) pg MCHC 32.8 (32.0-36.0) % RDW 17.2 (11.6-17.2) % Plt Count 439 (150-450) th/mm3 MPV 7.6 (7.0-11.0) fL Prelim Diff (Auto) Neut % (Auto) (16.0-70.0) % Lymph % (Auto) (9.0-44.0) % Loving % (Auto) (0.0-8.0) % Eos % (Auto) (0.0-4.0) % Baso % (Auto) (0.0-2.0) % Neut # (Auto) (1.8-7.7) th/mm3 Lymph # (Auto) (1.0-4.8) th/mm3 Loving # (Auto) (0.0-0.9) th/mm3 Eos # (Auto) (0.0-0.4) th/mm3 Baso # (Auto) (0.0-0.2) th/mm3 WBC Differential Diff Scan Differential Comment Platelet Estimate (Normal) Platelet Morphology (Normal) PT 10.7 (9.8-11.6) sec INR 1.1 Ratio APTT 39.8 H (23.4-31.7) sec Puncture Site Patient Temperature O2 Saturation (90-100) % ABG pH (7.380-7.420) ABG pCO2 (38-42) mmHg ABG pO2 (61-120) mmHG ABG HCO3 (22-26) mmol/L ABG O2 Content (12.0-20.0) Vol % ABG Base Excess (-2-2) mmol/L ABG Methemoglobin (0-2) % Gabe Test Hemoglobin (12.0-16.0) G/DL Carboxyhemoglobin (0-4) % O2 Delivery Device Vent Setting Inspired O2 % Critical Value Sodium (136-145) meq/L Potassium (3.5-5.1) meq/L Chloride (98-107) meq/L Carbon Dioxide (21.0-32.0) meq/L Anion Gap (5-15) meq/L BUN (7-18) mg/dL Creatinine (0.50-1.00) mg/dL Estimated GFR (>89) mL/min POC Glucose 121 H (68-110) mg/dl Random Glucose (74-106) mg/dL Calcium (8.5-10.1) mg/dL Phosphorus (2.5-4.9) mg/dL Magnesium (1.5-2.5) mg/dL Total Bilirubin (0.2-1.0) mg/dL AST (15-37) U/L ALT (10-53) U/L Alkaline Phosphatase (45-117) U/L Ammonia (11-32) mcmol/L Troponin I (0.02-0.05) ng/mL Total Protein (6.4-8.2) g/dL Albumin (3.4-5.0) g/dL Urine Color (Yellw/Straw) Urine Clarity (Clear) Urine pH (5.0-8.5) Ur Specific [place] (1.002-1.035) Urine Protein (Neg-Trace) mg/dL Urine Glucose (UA) (Negative) mg/dL Urine Ketones (Negative) mg/dL Urine Occult Blood (Negative) Urine Nitrate (Negative) Urine Bilirubin (Negative) Urine Urobilinogen (Less than 2) mg/dL Ur Leukocyte Esterase (Negative) Urine RBC (0-3) /hpf Urine WBC (0-5) /hpf Ur Squamous Epith Cells (0-5) /hpf Urine Bacteria (None) /hpf Micro UA Comment Ur Microscopic Review Urine Culture Comments Nasal Screen MRSA (PCR) (Negative) Random Vancomycin Comment Urine Opiates Screen (Neg) Ur Barbiturates Screen (Neg) Ur Amphetamines Screen (Neg) U Benzodiazepines Scrn (Neg) Urine Cocaine Screen (Neg) U Cannabinoids Screen (Neg) Hepatitis A IgM Ab (Nonreactive) Hep Bs Antigen (Nonreactive) Hep B Core IgM Ab (Nonreactive) Hep C IgG Ab (Nonreactive) Blood Type Antibody Screen 09/21/18 09/21/18 09/21/18 Range/Units 03:13 09:00 12:12 WBC (4.0-11.0) th/mm3 RBC (4.00-5.30) mil/mm3 Hgb (11.6-15.3) gm/dL Hct (35.0-46.0) % MCV (80.0-100.0) fL MCH (27.0-34.0) pg MCHC (32.0-36.0) % RDW (11.6-17.2) % Plt Count (150-450) th/mm3 MPV (7.0-11.0) fL Prelim Diff (Auto) Neut % (Auto) (16.0-70.0) % Lymph % (Auto) (9.0-44.0) % Loving % (Auto) (0.0-8.0) % Eos % (Auto) (0.0-4.0) % Baso % (Auto) (0.0-2.0) % Neut # (Auto) (1.8-7.7) th/mm3 Lymph # (Auto) (1.0-4.8) th/mm3 Loving # (Auto) (0.0-0.9) th/mm3 Eos # (Auto) (0.0-0.4) th/mm3 Baso # (Auto) (0.0-0.2) th/mm3 WBC Differential Diff Scan Differential Comment Platelet Estimate (Normal) Platelet Morphology (Normal) PT (9.8-11.6) sec INR Ratio APTT (23.4-31.7) sec Puncture Site Patient Temperature O2 Saturation (90-100) % ABG pH (7.380-7.420) ABG pCO2 (38-42) mmHg ABG pO2 (61-120) mmHG ABG HCO3 (22-26) mmol/L ABG O2 Content (12.0-20.0) Vol % ABG Base Excess (-2-2) mmol/L ABG Methemoglobin (0-2) % Gabe Test Hemoglobin (12.0-16.0) G/DL Carboxyhemoglobin (0-4) % O2 Delivery Device Vent Setting Inspired O2 % Critical Value Sodium 128 L (136-145) meq/L Potassium 3.6 (3.5-5.1) meq/L Chloride 87 L (98-107) meq/L Carbon Dioxide 24.7 (21.0-32.0) meq/L Anion Gap 16 H (5-15) meq/L BUN 57 H (7-18) mg/dL Creatinine 9.47 H (0.50-1.00) mg/dL Estimated GFR 4 L (>89) mL/min POC Glucose 117 H 116 H (68-110) mg/dl Random Glucose 132 H (74-106) mg/dL Calcium 9.9 (8.5-10.1) mg/dL Phosphorus (2.5-4.9) mg/dL Magnesium 2.5 (1.5-2.5) mg/dL Total Bilirubin 0.7 (0.2-1.0) mg/dL AST 17 (15-37) U/L ALT 23 (10-53) U/L Alkaline Phosphatase 88 (45-117) U/L Ammonia (11-32) mcmol/L Troponin I (0.02-0.05) ng/mL Total Protein 9.8 H D (6.4-8.2) g/dL Albumin 3.4 (3.4-5.0) g/dL Urine Color (Yellw/Straw) Urine Clarity (Clear) Urine pH (5.0-8.5) Ur Specific [place] (1.002-1.035) Urine Protein (Neg-Trace) mg/dL Urine Glucose (UA) (Negative) mg/dL Urine Ketones (Negative) mg/dL Urine Occult Blood (Negative) Urine Nitrate (Negative) Urine Bilirubin (Negative) Urine Urobilinogen (Less than 2) mg/dL Ur Leukocyte Esterase (Negative) Urine RBC (0-3) /hpf Urine WBC (0-5) /hpf Ur Squamous Epith Cells (0-5) /hpf Urine Bacteria (None) /hpf Micro UA Comment Ur Microscopic Review Urine Culture Comments Nasal Screen MRSA (PCR) (Negative) Random Vancomycin Comment Urine Opiates Screen (Neg) Ur Barbiturates Screen (Neg) Ur Amphetamines Screen (Neg) U Benzodiazepines Scrn (Neg) Urine Cocaine Screen (Neg) U Cannabinoids Screen (Neg) Hepatitis A IgM Ab (Nonreactive) Hep Bs Antigen (Nonreactive) Hep B Core IgM Ab (Nonreactive) Hep C IgG Ab (Nonreactive) Blood Type Antibody Screen 09/21/18 09/21/18 Range/Units 14:59 16:22 WBC (4.0-11.0) th/mm3 RBC (4.00-5.30) mil/mm3 Hgb (11.6-15.3) gm/dL Hct (35.0-46.0) % MCV (80.0-100.0) fL MCH (27.0-34.0) pg MCHC (32.0-36.0) % RDW (11.6-17.2) % Plt Count (150-450) th/mm3 MPV (7.0-11.0) fL Prelim Diff (Auto) Neut % (Auto) (16.0-70.0) % Lymph % (Auto) (9.0-44.0) % Loving % (Auto) (0.0-8.0) % Eos % (Auto) (0.0-4.0) % Baso % (Auto) (0.0-2.0) % Neut # (Auto) (1.8-7.7) th/mm3 Lymph # (Auto) (1.0-4.8) th/mm3 Loving # (Auto) (0.0-0.9) th/mm3 Eos # (Auto) (0.0-0.4) th/mm3 Baso # (Auto) (0.0-0.2) th/mm3 WBC Differential Diff Scan Differential Comment Platelet Estimate (Normal) Platelet Morphology (Normal) PT (9.8-11.6) sec INR Ratio APTT 40.9 H (23.4-31.7) sec Puncture Site Patient Temperature O2 Saturation (90-100) % ABG pH (7.380-7.420) ABG pCO2 (38-42) mmHg ABG pO2 (61-120) mmHG ABG HCO3 (22-26) mmol/L ABG O2 Content (12.0-20.0) Vol % ABG Base Excess (-2-2) mmol/L ABG Methemoglobin (0-2) % Gabe Test Hemoglobin (12.0-16.0) G/DL Carboxyhemoglobin (0-4) % O2 Delivery Device Vent Setting Inspired O2 % Critical Value Sodium (136-145) meq/L Potassium (3.5-5.1) meq/L Chloride (98-107) meq/L Carbon Dioxide (21.0-32.0) meq/L Anion Gap (5-15) meq/L BUN (7-18) mg/dL Creatinine (0.50-1.00) mg/dL Estimated GFR (>89) mL/min POC Glucose 137 H (68-110) mg/dl Random Glucose (74-106) mg/dL Calcium (8.5-10.1) mg/dL Phosphorus (2.5-4.9) mg/dL Magnesium (1.5-2.5) mg/dL Total Bilirubin (0.2-1.0) mg/dL AST (15-37) U/L ALT (10-53) U/L Alkaline Phosphatase (45-117) U/L Ammonia (11-32) mcmol/L Troponin I (0.02-0.05) ng/mL Total Protein (6.4-8.2) g/dL Albumin (3.4-5.0) g/dL Urine Color (Yellw/Straw) Urine Clarity (Clear) Urine pH (5.0-8.5) Ur Specific [place] (1.002-1.035) Urine Protein (Neg-Trace) mg/dL Urine Glucose (UA) (Negative) mg/dL Urine Ketones (Negative) mg/dL Urine Occult Blood (Negative) Urine Nitrate (Negative) Urine Bilirubin (Negative) Urine Urobilinogen (Less than 2) mg/dL Ur Leukocyte Esterase (Negative) Urine RBC (0-3) /hpf Urine WBC (0-5) /hpf Ur Squamous Epith Cells (0-5) /hpf Urine Bacteria (None) /hpf Micro UA Comment Ur Microscopic Review Urine Culture Comments Nasal Screen MRSA (PCR) (Negative) Random Vancomycin Comment Urine Opiates Screen (Neg) Ur Barbiturates Screen (Neg) Ur Amphetamines Screen (Neg) U Benzodiazepines Scrn (Neg) Urine Cocaine Screen (Neg) U Cannabinoids Screen (Neg) Hepatitis A IgM Ab (Nonreactive) Hep Bs Antigen (Nonreactive) Hep B Core IgM Ab (Nonreactive) Hep C IgG Ab (Nonreactive) Blood Type Antibody Screen Imaging Data Radiologist's impression: Chest X-Ray 09/08/18 00:00 CONCLUSION: 1. Markedly enlarged cardiac silhouette. 2. Endotracheal tube and nasogastric tube in place. Chest X-Ray 09/08/18 00:00 CONCLUSION: 1. Right subclavian central venous catheter now in place with the tip at the junction of the subclavian vein and brachiocephalic vein. 2. No evidence of pneumothorax. 3. Possible left upper lung perihilar consolidation. 4. Persistent cardiac silhouette enlargement. Abdomen Ultrasound 09/09/18 00:00 CONCLUSION: 1. Enlarged echogenic liver suggesting fatty infiltration 2. , Gallbladder not visualized Chest CTA 09/09/18 00:00 CONCLUSION: 1. Very limited examination due to patient body habitus. 2. Elongated filling defect in the right pulmonary artery suspicious for pulmonary embolus. Prominent artifact related to patient body habitus is seen through out the central pulmonary arteries limiting the evaluation. The segmental and subsegmental branches cannot be effectively evaluated on this study. Nuclear medicine VQ scan could be performed for further evaluation. 3. Moderate diffuse cardiomegaly. 4. Moderate-sized area of right lower lobe pulmonary consolidation. 5. Bilateral dependent lower lobe atelectasis. Head CT 09/09/18 00:00 CONCLUSION: No acute intracranial findings. . Venous Doppler Study 09/09/18 00:00 CONCLUSION: 1. Negative exam with no evidence of deep venous thrombosis. Chest X-Ray 09/11/18 07:28 CONCLUSION: Minimal improvement with better aeration Support apparatus in good position. Chest X-Ray 09/12/18 00:00 CONCLUSION: 1. Increasing pulmonary congestion 2. Stable bilateral patchy airspace disease. 3. Coiled central venous catheter in the right subclavian vein 4. Stable endotracheal and nasogastric tubes. Chest X-Ray 09/12/18 11:28 CONCLUSION: 1. Interval placement of right internal jugular central venous line with no evidence of pneumothorax. 2. Bilateral hazy opacity in the perihilar regions. 3. Cardiomegaly. Chest X-Ray 09/13/18 06:00 CONCLUSION: Worsening diffuse consolidation likely related to diffuse edema. Enlargement of the cardiac silhouette.. Chest X-Ray 09/14/18 06:00 CONCLUSION: Enlargement of cardiac silhouette. Hazy density in the perihilar regions likely related to edema. Chest X-Ray 09/15/18 04:00 CONCLUSION: Enlargement of cardiac silhouette. Diffuse consolidation likely related to diffuse processes such as edema. Further increased density in the left perihilar region and the inferior aspect of the right upper lobe related to some further consolidation. Chest X-Ray 09/16/18 06:00 CONCLUSION: 1. Persistent right upper lobe consolidation and slightly improving left upper lobe consolidation. 2. Stable cardiomegaly. Chest X-Ray 09/17/18 06:00 CONCLUSION: Increasing prominence and indistinctness of the central bronchopulmonary markings. Persistent left lower lobe consolidation. Chest X-Ray 09/18/18 00:00 CONCLUSION: Dialysis catheter in good position. Moderate interstitial edema with fluid overload, with some improvement in the interval. Chest X-Ray 09/19/18 06:00 CONCLUSION: Stable cardiomegaly and central airspace opacities. Chest X-Ray 09/20/18 06:00 CONCLUSION: Persistent consolidation in the right lung base Chest X-Ray 09/21/18 06:00 CONCLUSION: Persistent consolidation right lower lobe ECG Data Attestation: I personally reviewed and interpreted this ECG as follows: Interpretation: Twelve-lead EKG was reviewed by me. Melina. fib/A flutter, RVR. Heart rate of 176 bpm. Discharge Plan Discharge Disposition Patient Disposition: ED Admit(ED Internal Use Only) Discharge Order Discharge Orders: ED Use Only Admit Order (Routine); Ordered 09/09/18 Ordered By: Tay Fuller Physicians Team ED Provider: Tay Fuller Primary Care Provider: UNKNOWN, Attending Provider: Jeffery Alvarez Other Providers: Chris Majano ; Annetta Law ; Vanesa Saeed ; [facility] ; [facility] ; Dillan Rich V Status ED Status: Left Department Discharge Information Discharge Date/Time: 09/09/18 02:06
[2018-09-09] MEDS ORDERED: dilTIAZem Inj 125 MG in Sodium Chlor 0.9% Inj 100 ML IV.CONT PRN (00:33)
[2018-09-09 00:55] LABS: Baso % (Auto) 0.3 % (0.0-2.0); Eos # (Auto) 0.1 th/mm3 (0.0-0.4); Eos % (Auto) 0.4 % (0.0-4.0); Hematocrit 41.3 % (35.0-46.0); Hemoglobin 12.9 gm/dL (11.6-15.3); Lymph # (Auto) 1.9 th/mm3 (1.0-4.8); Lymph % (Auto) 12.3 % (9.0-44.0); Mean Corpuscular HGB Conc 31.1 % (32.0-36.0); Mean Corpuscular Hemoglobin 26.5 pg (27.0-34.0); Mean Corpuscular Volume 85.2 fL (80.0-100.0); Mono # (Auto) 0.3 th/mm3 (0.0-0.9); Mono % (Auto) 2.1 % (0.0-8.0); Neut # (Auto) 13.1 th/mm3 (1.8-7.7); Neut % (Auto) 84.9 % (16.0-70.0); Platelet Count 348 th/mm3 (150-450); Red Blood Count 4.85 mil/mm3 (4.00-5.30); Red Cell Distribution Width 17.6 % (11.6-17.2); White Blood Count 15.4 th/mm3 (4.0-11.0)
[2018-09-09] MEDS ORDERED: Heparin - SQ 10,000 UNITS/ML Vial SQ SCH (01:00)
[2018-09-09 01:09] LABS: Alanine Aminotransferase 116 U/L (10-53); Albumin 3.2 g/dL (3.4-5.0); Anion Gap 12 meq/L (5-15); Aspartate Aminotransferase 162 U/L (15-37); Blood Urea Nitrogen 21 mg/dL (7-18); Calcium 7.5 mg/dL (8.5-10.1); Carbon Dioxide 26.7 meq/L (21.0-32.0); Chloride 104 meq/L (98-107); Glomerular Filtration Rate 21 mL/min (>89); Glucose,Random 320 mg/dL (74-106); Sodium 143 meq/L (136-145)
[2018-09-09 01:13] LABS: Alkaline Phosphatase 182 U/L (45-117); Total Protein 7.7 g/dL (6.4-8.2); Troponin I 0.22 ng/mL (0.02-0.05)
--- NOTE | 2018-09-09 01:22 | CT ---
EXAM DATE: 09/09/2018 1:14 AM EST AGE/SEX: 89 years / Female INDICATIONS: Altered mental status. Unresponsive. CLINICAL DATA: This is the patient's initial encounter. Patient reports that signs and symptoms have been present for 1 day and indicates a pain score of Nonresponsive. MEDICAL/SURGICAL HISTORY: Non-responsive. Non-responsive. RADIATION DOSE: 60.43 CTDI (mGy) COMPARISON: No prior studies available for comparison.. TECHNIQUE: CT of the head without contrast. Using automated exposure control and adjustment of the mA and/or kV according to patient size, radiation dose was kept as low as reasonably achievable to ob tain optimal diagnostic quality images. DICOM format image data is available electronically for revi ew and comparison. FINDINGS: Cerebrum: The ventricles are normal for age. No evidence of midline shift, mass lesion, hemorrhage or acute infarction. No extraaxial fluid collections are seen. Posterior Fossa: The cerebellum and brainstem are intact. The 4th ventricle is midline. The cerebe llopontine angle is unremarkable. Extracranial: Partial opacification of the anterior ethmoid air cells. Skull: The calvaria is intact. No evidence of skull fracture. CONCLUSION: No acute intracranial findings. . Electronically signed by: Phillip Camarillo MD 09/09/2018 1:20 AM EST
[2018-09-09] MEDS ORDERED: Etomidate Inj 40 MG/20 ML Vial IV.PUSH ONE (01:34)
[2018-09-09] MEDS ORDERED: Succinylcholine Inj 200 MG/10 ML Vial ONE (01:35)
--- NOTE | 2018-09-09 01:39 | CT ---
EXAM DATE: 09/09/2018 1:18 AM EST AGE/SEX: 89 years / Female INDICATIONS: Unresponsive. Possible emboli. CLINICAL DATA: This is the patient's initial encounter. Patient reports that signs and symptoms have been present for 1 day and indicates a pain score of Nonresponsive. MEDICAL/SURGICAL HISTORY: Non-responsive. Non-responsive. RADIATION DOSE: 12.55 CTDI (mGy) COMPARISON: . TECHNIQUE: Volumetric scanning was performed using a multi-row detector CT scanner during bolus infu misty of 75 ml Omnipaque 350 (iohexol) nonionic water-soluble contrast as a single exam dose. The miya a was post processed with a variety of visualization algorithms including full volume maximum intensi ty projection and sliding thin slab reformation. Using automated exposure control and adjustment of the mA and/or kV according to patient size, radiation dose was kept as low as reasonably achievable t o obtain optimal diagnostic quality images. DICOM format image data is available electronically for review and comparison. FINDINGS: Pulmonary Arteries: Examination is markedly limited due to patient body habitus and timing of contra st bolus. There is an elongated filling defect in the proximal right pulmonary artery that is very llanos spicious for pulmonary embolus. The segmental and subsegmental branches bilaterally are not well eval uated. The main pulmonary artery is enlarged indicating possible pulmonary arterial hypertension. Lung: Large area of pulmonary consolidation involving the right lower lobe with air bronchograms. De pendent atelectasis of the lungs bilaterally. Effusion: None. Mediastinum: Moderate diffuse cardiomegaly. Nasogastric tube and endotracheal tube in place. Other: The axilla is unremarkable.Cholecystectomy clips in the upper abdomen. CONCLUSION: 1. Very limited examination due to patient body habitus. 2. Elongated filling defect in the right pulmonary artery suspicious for pulmonary embolus. Prominen t artifact related to patient body habitus is seen through out the central pulmonary arteries limitin g the evaluation. The segmental and subsegmental branches cannot be effectively evaluated on this josé manuel dy. Nuclear medicine VQ scan could be performed for further evaluation. 3. Moderate diffuse cardiomegaly. 4. Moderate-sized area of right lower lobe pulmonary consolidation. 5. Bilateral dependent lower lobe atelectasis. Electronically signed by: Phillip Camarillo MD 09/09/2018 1:37 AM EST
[2018-09-09 01:53] LABS: INR 1.1 Ratio; Prothrombin Time 10.7 sec (9.8-11.6)
[2018-09-09 02:16] LABS: ABG Base Excess -2.6 mmol/L (-2-2); ABG PCO2 44 mmHg (38-42); ABG PO2 271 mmHG (61-120)
[2018-09-09 02:36] LABS: Amphetamine Screen,Urine Neg (Neg); Bacteria,Urine Rare /hpf; Barbiturate Screen,Urine Neg (Neg); Bilirubin,Urine Negative (Negative); Cannabinoid Screen,Urine Neg (Neg); Clarity,Urine Clear (Clear); Cocaine Screen,Urine Pos (Neg); Color,Urine Yellow (Yellw/Straw); Glucose,Urine (UA) Negative (Negative); Leukocyte Esterase,Urine Negative (Negative); Nitrite,Urine Negative (Negative); Opiate Screen,Urine Neg (Neg); Specific Gravity,Urine 1.016 (1.002-1.035); Squamous Epithelial Cell,Urine 1 /hpf (0-5)
[2018-09-09] MEDS ORDERED: Heparin 10,000 UNITS/10 ML Vial (for IV use) IV.PUSH STA (03:10)
[2018-09-09] MEDS ORDERED: Sod Chloride 0.9% Inj 1,000 ML IV.CONT SCH (03:30)
[2018-09-09] MEDS: Chlorhexidine Gluconate 2% 1 Pack (2 Cloths) TOPICAL SCH (03:35)
[2018-09-09] MEDS: Oral Hygiene Kit OROPHARYNG SCH ×3 (03:36→15:21)
[2018-09-09] MEDS ORDERED: Chlorhexidine Gluconate 2% 1 Pack (2 Cloths) TOPICAL PRN (04:00)
[2018-09-09] MEDS: Propofol 1000 mg/100 ml Inj 1,000 MG/100 ML BOTTLE IV.CONT PRN ×3 (04:44→21:48)
[2018-09-09] MEDS: Heparin Drip 25,000 UNIT/250 ML BAG IV.CONT PRN ×2 (04:46→21:47)
[2018-09-09] MEDS ORDERED: Sodium Bicarbonate 8.4% Inj 50 MEQ/50 ML Syringe IV.CONT ONE (05:00)
[2018-09-09] MEDS ORDERED: Lidocaine/D5W 2000 mg/500 mL 2,000 MG/500 ML BAG IV.SIG ONE (05:00)
[2018-09-09] MEDS ORDERED: Norepinephrine Inj 4 MG/4 ML Ampul IV.CONT ONE (05:00)
[2018-09-09] MEDS ORDERED: diphenhydrAMINE HCl 50 MG/ML VIAL IV.PUSH ONE (05:00)
[2018-09-09] MEDS ORDERED: Digoxin Inj 500 MCG/2 ML Ampul IV.PUSH ONE (05:00)
[2018-09-09] MEDS ORDERED: Sodium Bicarbonate 8.4% Inj 50 MEQ/50 ML Syringe IV.PUSH ONE (05:04)
[2018-09-09] MEDS ORDERED: Dextrose 50% in Water 50 ML Vial IV.PUSH PRN (08:37)
[2018-09-09] MEDS ORDERED: Vancomycin Consult Pharmacy OTHER PRN (08:42)
[2018-09-09 08:59] LABS: ABG Base Excess 1.8 mmol/L (-2-2); ABG PCO2 28 mmHg (38-42); ABG PO2 65 mmHG (61-120)
[2018-09-09] MEDS ORDERED: Vancomycin Inj 1,000 MG in Sodium Chlor 0.9% Inj 250 ML IV.SIG SCH (09:00)
[2018-09-09] MEDS: Famotidine PF Inj 20 MG/2 ML Vial IV.PUSH SCH ×2 (09:04→20:24)
[2018-09-09] MEDS: Chlorhexidine 0.12% Oral Kit 15 ML UDC OROPHARYNG SCH ×2 (09:04→20:23)
[2018-09-09] MEDS: Senna/Docusate Sodium 8.6/50 MG Tablet PO SCH ×2 (09:04→20:24)
[2018-09-09 10:20] LABS: Baso % (Auto) 0.3 % (0.0-2.0); Eos % (Auto) 0.2 % (0.0-4.0); Hemoglobin 11.6 gm/dL (11.6-15.3); Lymph # (Auto) 0.9 th/mm3 (1.0-4.8); Lymph % (Auto) 12.8 % (9.0-44.0); Mean Corpuscular HGB Conc 31.4 % (32.0-36.0); Mean Corpuscular Hemoglobin 26.3 pg (27.0-34.0); Mean Corpuscular Volume 83.9 fL (80.0-100.0); Mean Platelet Volume 8.1 fL (7.0-11.0); Mono # (Auto) 0.4 th/mm3 (0.0-0.9); Mono % (Auto) 5.7 % (0.0-8.0); Neut # (Auto) 5.9 th/mm3 (1.8-7.7); Platelet Count 264 th/mm3 (150-450); Red Blood Count 4.41 mil/mm3 (4.00-5.30); Red Cell Distribution Width 17.3 % (11.6-17.2); White Blood Count 7.3 th/mm3 (4.0-11.0)
[2018-09-09 10:34] LABS: Alanine Aminotransferase 95 U/L (10-53); Albumin 2.7 g/dL (3.4-5.0); Alkaline Phosphatase 137 U/L (45-117); Anion Gap 12 meq/L (5-15); Aspartate Aminotransferase 128 U/L (15-37); Blood Urea Nitrogen 29 mg/dL (7-18); Calcium 7.7 mg/dL (8.5-10.1); Carbon Dioxide 27.2 meq/L (21.0-32.0); Chloride 105 meq/L (98-107); Glomerular Filtration Rate 20 mL/min (>89); Glucose,Random 166 mg/dL (74-106); Magnesium 1.7 mg/dL (1.5-2.5); Phosphorus 2.8 mg/dL (2.5-4.9); Potassium 3.1 meq/L (3.5-5.1); Sodium 144 meq/L (136-145); Total Protein 6.6 g/dL (6.4-8.2)
[2018-09-09] MEDS ORDERED: Vancomycin Inj 2,500 MG in Sodium Chlor 0.9% Inj 500 ML IV.SIG ONE (11:00)
[2018-09-09] MEDS: Piperacil/Tazo 2.25 GM Premix 50 ML IV.SIG SCH ×3 (11:01→21:49)
[2018-09-09] MEDS: Insulin NovoLIN Regular Correctional Sugar Inj SQ SCH ×3 (12:00→20:23)
[2018-09-09 12:15] LABS: Hepatitis A IgM Antibody Nonreactive (Nonreactive); Hepatitits B Surface Antigen Nonreactive (Nonreactive)
[2018-09-09] MEDS ORDERED: Potassium Chloride 10 MEQ ER Capsule PO ONE (12:25)
--- NOTE | 2018-09-09 13:48 | US ---
EXAM DATE: 09/09/2018 1:36 PM EST AGE/SEX: 47 years / Female INDICATIONS: Leg swelling. Congestive heart failure. CLINICAL DATA: This is the patient's initial encounter. Patient reports that signs and symptoms have been present for 1 day and indicates a pain score of Nonresponsive. MEDICAL/SURGICAL HISTORY: Congestive heart failure. Intubated. Unable to obtain complete histor y due to unresponsive. Non-responsive. COMPARISON: [facility] [place], [place] LEG BILATERAL VENOUS DOPPLER, 08/27/2017. . TECHNIQUE: Venous ultrasound of both lower extremities was performed from the inguinal ligament to t he proximal calf. Real-time, color Doppler and spectral tracing, compression and augmentation techni ques were used. FINDINGS: Right Leg: Normal compression of the deep venous system from the inguinal region to the proximal марина f. No echogenic clot is seen. Normal response of the venous system to augmentation and respiration. Left Leg: Normal compression of the deep venous system from the inguinal region to the proximal calf . No echogenic clot is seen. Normal response of the venous system to augmentation and respiration. Other: None. CONCLUSION: 1. Negative exam with no evidence of deep venous thrombosis. Electronically signed by: Zechariah Walker MD 09/09/2018 1:46 PM EST
--- NOTE | 2018-09-09 13:55 | US ---
EXAM DATE: 09/09/2018 1:40 PM EST AGE/SEX: 47 years / Female INDICATIONS: Elevated liver functions. CLINICAL DATA: This is the patient's initial encounter. Patient reports that signs and symptoms have been present for 1 day and indicates a pain score of Nonresponsive. MEDICAL/SURGICAL HISTORY: Congestive heart failure. Intubated. Unable to obtain complete histor y due to unresponsive. Non-responsive. COMPARISON: [facility] [place] ABDOMEN & PELVIS W/O CONTRAST, 08/30/2017. . MEASUREMENTS: Liver:__ 24.2 cm. Common Bile Duct:___ 5mm. Right Kidney:___11.7 x 5.3 x 5.9 cm. Left Kidney:___11.6 x 5.2 x 6.4 cm. Spleen:___11.2 cm. FINDINGS: Liver: Enlarged echogenic liver Portal Vein: Hepatopedal flow seen in portal vein. Common Duct: No intraluminal mass or stone visualized. Gallbladder: Gallbladder not visualized. Surgically absent?. Pancreas: Poorly seen because of bowel gas Right Kidney: Normal echogenicity and cortical thickness. No mass or hydronephrosis. Left Kidney: Normal echogenicity and cortical thickness. No mass or hydronephrosis. Ascites: None Pleural Effusion: None Spleen: No focal lesion. Aorta: Non aneurysmal. IVC: Within normal limits Other: No ascites CONCLUSION: 1. Enlarged echogenic liver suggesting fatty infiltration 2. , Gallbladder not visualized Electronically signed by: Paramjit Guillen MD 09/09/2018 1:53 PM EST
--- NOTE | 2018-09-09 14:17 | P.CONNP ---
History of Present Illness Service: Nephrology Reason for Consult: LEIDA Primary Care Provider: UNKNOWN History of Present Illness: This patient is a 47 year old morbidly obese lady currently intubated. She was admitted with shortness of breath. Her Troponin is elevated. She has lower extremity edema. Creatinine was around 2 on admission, now 2.6. No baseline renal function is available. Her is at the bedside, he was not aware of renal dysfunction. Patient has obesity, DM, and hypertension. She is a smoker. She had CTA which is suspicious for pulmonary embolism. Review of Systems unobtainable due to mental status ON LICENSE OF [facility] - History History Provided By: Rehabilitation Services Counselor / EMT - Medical / Surgical Hx Neg / Unobtainable Medical Problems Denied: Unable to Obtain - Medical History Medical History: Medical History (Last Updated 09/09/18 @ 13:21 by Fidelina Lo) History of MRSA infection Onset Date: ~09/09/18 - Tobacco History Smoking Status: Unknown if ever smoked - Alcohol History How Often Do You Have a Drink Containing Alcohol: Unable to Obtain Medications and Allergies Active Medications: Active Medications Acetaminophen (Tylenol) 650 mg PO Q6H PRN PRN Reason: PAIN 1-10 AND/OR FEVER >101F Al Hydroxide/Mg Hydroxide (Milk Of Magnflavio Liq) 30 ml PO Q12H PRN PRN Reason: Mild Constipation Albuterol (Duoneb Neb (Prn)) 1 ampul NEB Q2HR NEB PRN PRN Reason: WHEEZING Albuterol (Duoneb Neb (Marshall)) 1 ampul NEB Q4HR NEB [facility] Last Admin: 09/09/18 11:05 Dose: 1 ampul Bisacodyl (Dulcolax Supp) 10 mg RECTAL DAILY PRN PRN Reason: SEVERE CONSITIPATION Chlorhexidine Gluconate (Chlorhexidine 2% Cloth) 3 pack TOPICAL DAILY@0400 [facility] Stop: 09/14/18 03:59 Last Admin: 09/09/18 03:35 Dose: 3 pack Chlorhexidine Gluconate (Chlorhexidine 2% Cloth) 3 pack TOPICAL DAILY@0400 PRN PRN Reason: Extra cloth needed Stop: 09/14/18 03:59 Chlorhexidine Gluconate (Peridex 0.12% Oral Kit) 15 ml OROPHARYNG BID@0800, 2000 [facility] Last Admin: 09/09/18 09:04 Dose: 15 ml Dextrose (D50w Vial) 50 ml IV.PUSH UNSCH PRN PRN Reason: PER HYPOGLYCEMIA PROTOCOL Famotidine (Pepcid Pf Inj) 20 mg IV.PUSH Q12HR [facility] Last Admin: 09/09/18 09:04 Dose: 20 mg Glucagon (Glucagon Inj) 1 mg OTHER PRN PRN PRN Reason: for Hypoglycemia Protocol Propofol (Diprivan 1000 Mg/100 Ml Inj) 1,000 mg in 100 mls @ 6.804 mls/hr IV.CONT TITRATE PRN; Protocol PRN Reason: Per Protocol Last Admin: 09/09/18 11:42 Dose: 15 mcg/kg/min, 20.41 mls/hr Diltiazem HCl 125 mg/ Sodium (Chloride) 125 mls @ 5 mls/hr IV.CONT TITRATE PRN ; Protocol PRN Reason: Per Protocol Last Titration: 09/09/18 13:00 Dose: 0 mg/hr, 0 mls/hr Heparin Sodium/Dextrose (Heparin/D5w 25,000 U/250 Ml) 25,000 unit in 250 mls @ 0 mls/hr IV.CONT TITRATE PRN; Protocol PRN Reason: Per Protocol Last Titration: 09/09/18 13:00 Dose: 0 units/hr, 0 mls/hr Sodium Chloride (Ns Inj) 1,000 mls @ 84 mls/hr IV.CONT .[id number] [facility] Last Admin: 09/09/18 05:01 Dose: 84 mls/hr Piperacillin/Tazobactam/Dextrose (Zosyn 2.25 Gm Premix) 50 mls @ 100 mls/hr IV.SIG Q6H [facility] Last Infusion: 09/09/18 11:58 Dose: Infused Insulin Human Regular (Novolin R Correctional Sugar Inj) 0 units SQ Q4HR [facility]; Protocol Last Admin: 09/09/18 12:00 Dose: Not Given Lactulose (Lactulose Liq) 30 ml PO DAILY PRN PRN Reason: SEVERE CONSITIPATION Lactulose (Lactulose Liq) 30 ml PO BID [facility] Last Admin: 09/09/18 09:07 Dose: 30 ml Midazolam HCl (Versed Inj) 2 mg IV.PUSH Q1H PRN PRN Reason: SEDATION Miscellaneous Medication () 1 each OROPHARYNG 0000,0400,1200,1600 [facility] Last Admin: 09/09/18 12:00 Dose: 1 each Morphine Sulfate (Morphine Inj) 2 mg IV.PUSH Q2H PRN PRN Reason: PAIN SCALE 6 TO 10 Ondansetron HCl (Zofran Inj) 4 mg IV.PUSH Q6H PRN PRN Reason: NAUSEA OR VOMITING Pharmacy Profile Note (Vancomycin Consult Pharmacy) 1 each OTHER UNSCH PRN PRN Reason: Pharmacy to dose Senna/Docusate Sodium (Nereida-Colace) 1 tab PO BID [facility] Last Admin: 09/09/18 09:04 Dose: 1 tab Sennosides (Senokot) 17.2 mg PO Q12H PRN PRN Reason: Moderate Constipation Sodium Chloride (Ns Flush) 2 ml IV.FLUSH BID [facility] Last Admin: 09/09/18 09:04 Dose: 2 ml Sodium Chloride (Ns Flush) 2 ml IV.FLUSH PRN PRN PRN Reason: FLUSH AFTER USING IV ACCESS Allergies Allergy/AdvReac Type Severity Reaction Status Date / Time No Allergy Information Allergy Unverified 09/08/18 22:46 Available Home Medications Medication Instructions Recorded Confirmed Type Unable to Obtain Home Meds 09/09/18 09/09/18 History Exam Vital signs: Vital Signs 09/08/18 22:37 09/08/18 22:39 09/08/18 22:43 Temperature Pulse Rate 170 H 147 H 164 H Respiratory Rate Blood Pressure 156/120 H 187/90 H Pulse Oximetry 09/08/18 22:47 09/08/18 22:52 09/08/18 22:55 Temperature Pulse Rate 100 H 134 H 114 H Respiratory Rate Blood Pressure 181/67 H 176/76 H 189/81 H Pulse Oximetry 98 97 86 L 09/08/18 23:00 09/08/18 23:12 09/08/18 23:21 Temperature Pulse Rate 99 H 112 H 116 H Respiratory Rate 22 22 Blood Pressure 168/67 H 181/73 H 220/107 H Pulse Oximetry 91 L 91 L 09/08/18 23:25 09/08/18 23:27 09/08/18 23:36 Temperature Pulse Rate 118 H 118 H Respiratory Rate 22 24 24 Blood Pressure 215/77 H 215/85 H 223/94 H Pulse Oximetry 92 L 91 L 09/09/18 00:41 09/09/18 00:49 09/09/18 01:40 Temperature Pulse Rate 107 H 107 H Respiratory Rate 24 24 24 Blood Pressure 113/55 L 157/103 H Pulse Oximetry 97 95 99 09/09/18 01:45 09/09/18 02:00 09/09/18 03:43 Temperature 99.1 F Pulse Rate 89 78 Respiratory Rate 24 25 H Blood Pressure 102/51 L Pulse Oximetry 100 100 97 09/09/18 04:00 09/09/18 05:00 09/09/18 07:00 Temperature 98.8 F 98.7 F Pulse Rate 93 H 75 76 Respiratory Rate 24 24 24 Blood Pressure 130/65 148/62 H 108/62 Pulse Oximetry 100 100 96 09/09/18 07:53 09/09/18 08:00 09/09/18 09:00 Temperature Pulse Rate 77 76 Respiratory Rate 24 Blood Pressure Pulse Oximetry 99 09/09/18 09:12 09/09/18 10:00 09/09/18 10:15 Temperature Pulse Rate 77 Respiratory Rate 20 20 Blood Pressure 104/71 Pulse Oximetry 98 100 99 09/09/18 10:26 09/09/18 10:30 09/09/18 11:00 Temperature 98.5 F Pulse Rate 76 76 76 Respiratory Rate Blood Pressure 99/65 L 104/63 Pulse Oximetry 99 99 100 09/09/18 11:06 09/09/18 11:30 09/09/18 12:00 Temperature Pulse Rate 77 82 80 Respiratory Rate 20 Blood Pressure 105/77 95/64 L Pulse Oximetry 99 100 09/09/18 12:03 09/09/18 12:30 09/09/18 13:00 Temperature Pulse Rate 79 80 79 Respiratory Rate Blood Pressure 89/57 L 90/54 L 99/68 L Pulse Oximetry 100 100 100 09/09/18 13:14 09/09/18 13:31 Temperature Pulse Rate 78 Respiratory Rate 20 Blood Pressure 123/59 L Pulse Oximetry 100 100 Intake & Output 09/08/18 09/09/18 09/09/18 18:59 06:59 18:59 Intake Total 100 / 100 300 / 300 Output Total 200 / 200 Balance -100 / -100 300 / 300 Weight 173.6 kg Intake: IV 100 / 100 300 / 300 Sodium Bicarbonate 8.4% Inj 50 50 / 50 ML @ 0 mls/hr .ROUTE .[facility] Rx#:[id number] Diprivan 1000 mg/100 ml Inj 1, 100 / 100 100 / 100 000 mg In 100 ml @ 5 MCG/KG/MIN 6.804 mls/hr IV.CONT TITRATE PRN Rx#:[id number] Cardizem Inj 125 MG In NS Inj 100 / 100 100 ML @ 5 MG/HR 5 mls/hr IV. CONT TITRATE PRN Rx#:[id number] Zosyn 2.25 GM Premix 50 ML @ 50 / 50 100 mls/hr IV.SIG Q6H [facility] Rx#: [id number] Oral 0 / 0 Tube Feeding 0 / 0 Output: Urine Amount (Catheter) 200 / 200 Indwelling Urethral Catheter 200 / 200 Other: Date of Last Bowel Movement 09/09/18 09/09/18 # Incontinent Bowel Movements 2 Weight On Admission 173.6 kg - Constitutional no acute distress Comments: intubated, unresponsive. Sedated. - Routine HEENT Exam Head: Present: normocephalic, atraumatic Eye: Present: EOMI, PERRL - Routine Respiratory Exam Present: rhonchi, wheezes - Routine Cardiovascular Exam Present: S1, S2 - Routine Abdominal Exam Present: soft Comments: obese - Routine Extremities Exam Present: edema - Routine Neurological Exam intubated. Sedated Results - Lab Results 09/09/18 09:20 09/09/18 09:20 Most recent lab results ABG pH 6.97 (7.380-7.420) L* 09/09/18 23:51 ABG pCO2 101 mmHg (38-42) H* 09/09/18 23:51 ABG pO2 91 mmHg (61-120) 09/09/18 23:51 ABG HCO3 22 mmol/L (22-26) 09/09/18 23:51 Calcium 7.7 mg/dL (8.5-10.1) L 09/09/18 09:20 Phosphorus 2.8 mg/dL (2.5-4.9) 09/09/18 09:20 Magnesium 1.7 mg/dL (1.5-2.5) 09/09/18 09:20 Assessment and Plan - Assessment (1) Acute kidney failure Code(s): N17.9 - Acute kidney failure, unspecified Status: Acute Plan: Baseline renal function is not known. May have renal hypoperfusion. Renal function has declined today, could have developed contrast nephropathy after CTA. Clinically she appears to fluid overloaded. A dose of Lasix. Stop IVF. Obtain renal US. (2) Respiratory failure Code(s): J96.90 - Respiratory failure, unspecified, unspecified whether with hypoxia or hypercapnia Status: Acute Plan: Patient with PE, and possibly fluid overload. On Heparin drip. A dose of Bumex. (3) Obesity Code(s): E66.9 - Obesity, unspecified Status: Acute Plan: patient has obesity-hypoventilation syndrome. (4) Pulmonary embolism Code(s): I26.99 - Other pulmonary embolism without acute cor pulmonale Status : Acute Plan: On Heparin. - Attending Attestation Thanks for the consult. I will follow.
--- NOTE | 2018-09-09 21:38 | ECHRPT ---
Indication: Cardiomyopathy CONCLUSIONS Technically exceedingly difficult study making assessment of left ventricular function and wall astrid on suboptimal. Grossly, left ventricular function appears severely reduced. Regional wall motion rom ot be adequately assessed; probable global hypokinesis. Possible mild left ventricular enlargement. The right ventricle was not well visualized. The left atrial size is mildly dilated. The mitral valve is not well visualized. The aortic valve is not well visualized. There is mild tricuspid valve regurgitation. The estimated pulmonary arterial pressure is 31 mmHg. BP: / HR: Rhythm: MEASUREMENTS (Male / Female) Normal Values Technical Quality: 2D ECHO LV Diastolic Diameter PLAX 5.5 cm 4.2 - 5.9 / 3.9 - 5.3 cm LV Systolic Diameter PLAX 5.1 cm IVS Diastolic Thickness 1.3 cm 0.6 - 1.0 / 0.6 - 0.9 cm LVPW Diastolic Thickness 1.5 cm 0.6 - 1.0 / 0.6 - 0.9 cm LV Relative Wall Thickness 0.5 RV Internal Dim ED PLAX 3.3 cm LVOT Diameter 2.2 cm M-MODE Aortic Root Diameter MM 3.3 cm LA Systolic Diameter MM 4.6 cm LA Ao Ratio MM 1.4 DOPPLER AV Peak Velocity 105.0 cm/s AV Peak Gradient 4.4 mmHg LVOT Peak Velocity 72.6 cm/s LVOT Peak Gradient 2.1 mmHg AV Area Cont Eq pk 2.6 cm Mitral E Point Velocity 69.1 cm/s LV E' Lateral Velocity 2.7 cm/s Mitral E to LV E' Lateral Ratio 25.3 LV E' Septal Velocity 3.5 cm/s Mitral E to LV E' Septal Ratio 19.7 TR Peak Velocity 228.0 cm/s TR Peak Gradient 21.0 mmHg Right Atrial Pressure 10.0 mmHg Pulmonary Artery Systolic Pressu 30.8 mmHg Right Ventricular Systolic Press 30.8 mmHg PV Peak Velocity 78.7 cm/s PV Peak Gradient 2.5 mmHg FINDINGS LEFT VENTRICLE Technically exceedingly difficult study making assessment of left ventricular function and wall astrid on suboptimal. Grossly, left ventricular function appears severely reduced. Regional wall motion rom ot be adequately assessed; probable global hypokinesis. Possible mild left ventricular enlargement. RIGHT VENTRICLE The right ventricle was not well visualized. LEFT ATRIUM The left atrial size is mildly dilated. RIGHT ATRIUM The right atrial size is normal. ATRIAL SEPTUM Normal atrial septal thickness without atrial level shunting by limited color doppler interrogation. AORTA The aortic root and proximal ascending aorta are normal in size on limited imaging. MITRAL VALVE The mitral valve is not well visualized. AORTIC VALVE The aortic valve is not well visualized. TRICUSPID VALVE There is mild tricuspid valve regurgitation. The estimated pulmonary arterial pressure is 31 mmHg. PULMONARY VALVE The pulmonary valve is not well visualized. VESSELS The inferior vena cava is normal in size. PERICARDIUM No pericardial effusion. Geoff Soto MD (Electronically Signed) Final Date:09 September 2018 21:37
[2018-09-10] MEDS: Insulin NovoLIN Regular Correctional Sugar Inj SQ SCH ×6 (00:15→20:11)
[2018-09-10] MEDS: Oral Hygiene Kit OROPHARYNG SCH ×4 (00:15→15:29)
[2018-09-10] MEDS: Propofol 1000 mg/100 ml Inj 1,000 MG/100 ML BOTTLE IV.CONT PRN ×6 (00:55→22:23)
[2018-09-10 04:42] LABS: Baso % (Auto) 0.6 % (0.0-2.0); Eos # (Auto) 0.2 th/mm3 (0.0-0.4); Eos % (Auto) 3.5 % (0.0-4.0); Hematocrit 35.3 % (35.0-46.0); Hemoglobin 11.5 gm/dL (11.6-15.3); Lymph # (Auto) 2.3 th/mm3 (1.0-4.8); Lymph % (Auto) 36.4 % (9.0-44.0); Mean Corpuscular HGB Conc 32.4 % (32.0-36.0); Mean Corpuscular Hemoglobin 26.4 pg (27.0-34.0); Mean Corpuscular Volume 81.4 fL (80.0-100.0); Mean Platelet Volume 8.3 fL (7.0-11.0); Mono # (Auto) 0.6 th/mm3 (0.0-0.9); Mono % (Auto) 10.3 % (0.0-8.0); Neut # (Auto) 3.1 th/mm3 (1.8-7.7); Neut % (Auto) 49.2 % (16.0-70.0); Platelet Count 265 th/mm3 (150-450); Red Blood Count 4.34 mil/mm3 (4.00-5.30); Red Cell Distribution Width 17.8 % (11.6-17.2); White Blood Count 6.3 th/mm3 (4.0-11.0)
[2018-09-10] MEDS: Piperacil/Tazo 2.25 GM Premix 50 ML IV.SIG SCH ×4 (04:49→22:23)
[2018-09-10] MEDS: Chlorhexidine Gluconate 2% 1 Pack (2 Cloths) TOPICAL SCH (04:50)
[2018-09-10 04:58] LABS: Activated Partial Thrombo Time 65.7 sec (23.4-31.7); INR 1.1 Ratio; Prothrombin Time 10.8 sec (9.8-11.6)
[2018-09-10 05:11] LABS: Alanine Aminotransferase 91 U/L (10-53); Albumin 2.5 g/dL (3.4-5.0); Alkaline Phosphatase 115 U/L (45-117); Anion Gap 12 meq/L (5-15); Aspartate Aminotransferase 104 U/L (15-37); Blood Urea Nitrogen 36 mg/dL (7-18); Calcium 7.7 mg/dL (8.5-10.1); Carbon Dioxide 26.4 meq/L (21.0-32.0); Chloride 106 meq/L (98-107); Glomerular Filtration Rate 12 mL/min (>89); Glucose,Random 137 mg/dL (74-106); Magnesium 1.7 mg/dL (1.5-2.5); Phosphorus 4.6 mg/dL (2.5-4.9); Potassium 3.4 meq/L (3.5-5.1); Sodium 144 meq/L (136-145); Total Protein 6.7 g/dL (6.4-8.2); Vancomycin,Random 32.2 Comment
[2018-09-10] MEDS: Chlorhexidine 0.12% Oral Kit 15 ML UDC OROPHARYNG SCH ×2 (09:04→20:23)
--- NOTE | 2018-09-10 09:13 | P.PNCC ---
Subjective Subjective Remarks/Hospital Course: Middle-aged morbidly obese female was brought in emergently department by EMS due to respiratory failure and unresponsiveness. She was brought in being bagged by BVM. Patient was a GCS of 3 upon arrival and hence in no condition to give any history. As per EMS the call went out as shortness of breath while patient got into the car. When they arrived she was in severe respiratory distress. They put her on BiPAP but shortly patient started to lose consciousness with agonal respirations. Family was at the scene and informed EMS that she has history of congestive heart failure. Patient was tachycardic upon arrival with heart rate in 170s. It appeared to be irregularly irregular on the monitor. She was immediately intubated by ED attending with improvement in her heart rate. There is no additional history available. Per report, the family admits the patient has been taking a lot of medications but they are unaware of the names or reasons. 09/10 Patient remains sedated with Diprivan and intubated. Renal function is worsening with Cr: 4.02 from 2.60. Afebrile. On Heparin drip. Objective Vital Signs / I&O: Vital Signs 09/09/18 09:00 09/09/18 09:12 09/09/18 10:00 Temperature Pulse Rate 76 77 Respiratory Rate 20 Blood Pressure 104/71 Pulse Oximetry 98 100 09/09/18 10:15 09/09/18 10:26 09/09/18 10:30 Temperature Pulse Rate 76 76 Respiratory Rate 20 Blood Pressure 99/65 L Pulse Oximetry 99 99 99 09/09/18 11:00 09/09/18 11:06 09/09/18 11:30 Temperature 98.5 F Pulse Rate 76 77 82 Respiratory Rate 20 Blood Pressure 104/63 105/77 Pulse Oximetry 100 99 09/09/18 12:00 09/09/18 12:03 09/09/18 12:30 Temperature Pulse Rate 80 79 80 Respiratory Rate Blood Pressure 95/64 L 89/57 L 90/54 L Pulse Oximetry 100 100 100 09/09/18 13:00 09/09/18 13:14 09/09/18 13:31 Temperature Pulse Rate 79 78 Respiratory Rate 20 Blood Pressure 99/68 L 123/59 L Pulse Oximetry 100 100 100 09/09/18 14:00 09/09/18 14:01 09/09/18 14:30 Temperature Pulse Rate 78 78 85 Respiratory Rate Blood Pressure 99/57 L 116/63 Pulse Oximetry 100 100 100 09/09/18 15:00 09/09/18 15:01 09/09/18 15:30 Temperature 98.6 F Pulse Rate 85 85 86 Respiratory Rate 20 Blood Pressure 118/57 L 112/61 Pulse Oximetry 100 100 100 09/09/18 16:00 09/09/18 16:17 09/09/18 16:31 Temperature Pulse Rate 86 93 H Respiratory Rate 22 Blood Pressure 105/75 66/48 L Pulse Oximetry 100 98 97 09/09/18 17:00 09/09/18 17:04 09/09/18 17:36 Temperature Pulse Rate 101 H 103 H 93 H Respiratory Rate Blood Pressure 129/63 119/64 Pulse Oximetry 100 100 100 09/09/18 18:00 09/09/18 18:01 09/09/18 18:30 Temperature Pulse Rate 91 H 91 H 90 Respiratory Rate Blood Pressure 100/59 L 101/56 L Pulse Oximetry 99 99 99 09/09/18 19:00 09/09/18 19:30 09/09/18 19:50 Temperature Pulse Rate 90 89 87 Respiratory Rate 20 Blood Pressure 103/55 L 102/70 Pulse Oximetry 99 100 100 09/09/18 20:00 09/09/18 20:30 09/09/18 21:00 Temperature 98.8 F Pulse Rate 91 H 91 H 90 Respiratory Rate 20 Blood Pressure 105/57 L 102/64 100/70 Pulse Oximetry 100 100 100 09/09/18 21:30 09/09/18 22:00 09/09/18 22:30 Temperature Pulse Rate 90 90 90 Respiratory Rate Blood Pressure 107/63 105/68 117/69 Pulse Oximetry 100 99 100 09/09/18 23:00 09/09/18 23:11 09/09/18 23:30 Temperature Pulse Rate 89 90 90 Respiratory Rate 20 Blood Pressure 110/64 112/61 Pulse Oximetry 100 100 99 09/10/18 00:00 09/10/18 00:30 09/10/18 01:00 Temperature Pulse Rate 90 88 88 Respiratory Rate Blood Pressure 112/69 105/60 110/74 Pulse Oximetry 99 98 99 09/10/18 01:30 09/10/18 02:00 09/10/18 02:30 Temperature Pulse Rate 88 86 85 Respiratory Rate Blood Pressure 122/55 L 111/78 110/70 Pulse Oximetry 99 100 100 09/10/18 03:00 09/10/18 03:30 09/10/18 03:37 Temperature 98.6 F Pulse Rate 85 85 87 Respiratory Rate 22 Blood Pressure 112/63 113/71 Pulse Oximetry 100 100 09/10/18 03:53 09/10/18 04:00 09/10/18 04:01 Temperature Pulse Rate 97 H 94 H Respiratory Rate 20 Blood Pressure 152/81 H Pulse Oximetry 100 100 100 09/10/18 04:30 09/10/18 05:00 09/10/18 05:30 Temperature Pulse Rate 104 H 94 H 90 Respiratory Rate Blood Pressure 141/82 H 115/65 108/65 Pulse Oximetry 100 100 100 09/10/18 06:00 09/10/18 07:46 Temperature Pulse Rate 88 90 Respiratory Rate 20 Blood Pressure 105/64 Pulse Oximetry 100 100 Intake & Output 09/09/18 09/10/18 09/10/18 18:59 06:59 18:59 Intake Total 2063 / 2063 821 / 821 Output Total 200 / 200 200 / 200 Balance 1863 / 1863 621 / 621 Weight 176.1 kg Intake: IV 1974 550 / 550 Sodium Bicarbonate 8.4% Inj 50 50 / 50 ML @ 0 mls/hr .ROUTE .[facility] Rx#:[id number] Heparin/D5W 25,000 U/250 mL 25, 250 / 250 000 unit In 250 ml @ Per Protocol IV.CONT TITRATE PRN Rx #:[id number] Diprivan 1000 mg/100 ml Inj 1, 200 / 200 200 / 200 000 mg In 100 ml @ 5 MCG/KG/MIN 6.804 mls/hr IV.CONT TITRATE PRN Rx#:[id number] NS Inj 1,000 ML @ 84 mls/hr IV. 1000 / 1000 CONT .[id number] [facility] Rx#:[id number] Cardizem Inj 125 MG In NS Inj 100 / 100 100 ML @ 5 MG/HR 5 mls/hr IV. CONT TITRATE PRN Rx#:[id number] Zosyn 2.25 GM Premix 50 ML @ 100 / 100 100 / 100 100 mls/hr IV.SIG Q6H [facility] Rx#: [id number] Vancomycin Inj 2,500 MG In NS 525 / 525 Inj 500 ML @ 250 mls/hr IV.SIG ONCE ONE Rx#:[id number] Oral 0 / 0 Tube Feeding 88 / 88 251 / 251 Water Bolus Amount 20 / 20 Output: Urine 200 / 200 Urine Amount (Catheter) 200 / 200 Indwelling Urethral Catheter 200 / 200 Other: Date of Last Bowel Movement 09/09/18 09/10/18 # Incontinent Bowel Movements 1 Result Diagrams: 09/10/18 04:05 09/10/18 04:05 Other Results: Laboratory Results - last 12 hr 09/09/18 09/10/18 09/10/18 22:20 00:14 01:00 WBC RBC Hgb Hct MCV MCH MCHC RDW Plt Count MPV Neut % (Auto) Lymph % (Auto) Hendry % (Auto) Eos % (Auto) Baso % (Auto) Neut # (Auto) Lymph # (Auto) Hendry # (Auto) Eos # (Auto) Baso # (Auto) WBC Differential Differential Comment PT INR APTT 91.6 H* 67.1 H D Sodium Potassium Chloride Carbon Dioxide Anion Gap BUN Creatinine Estimated GFR POC Glucose 122 H Random Glucose Calcium Phosphorus Magnesium Total Bilirubin AST ALT Alkaline Phosphatase Total Protein Albumin Random Vancomycin 09/10/18 09/10/18 09/10/18 04:05 04:05 04:05 WBC 6.3 RBC 4.34 Hgb 11.5 L Hct 35.3 MCV 81.4 MCH 26.4 L MCHC 32.4 RDW 17.8 H Plt Count 265 MPV 8.3 Neut % (Auto) 49.2 Lymph % (Auto) 36.4 Hendry % (Auto) 10.3 H Eos % (Auto) 3.5 Baso % (Auto) 0.6 Neut # (Auto) 3.1 Lymph # (Auto) 2.3 Hendry # (Auto) 0.6 Eos # (Auto) 0.2 Baso # (Auto) 0.0 WBC Differential . Differential Comment Auto diff final PT 10.8 INR 1.1 APTT 65.7 H Sodium 144 Potassium 3.4 L Chloride 106 Carbon Dioxide 26.4 Anion Gap 12 BUN 36 H Creatinine 4.02 H Estimated GFR 12 L POC Glucose Random Glucose 137 H Calcium 7.7 L Phosphorus 4.6 D Magnesium 1.7 Total Bilirubin 0.4 AST 104 H ALT 91 H Alkaline Phosphatase 115 Total Protein 6.7 Albumin 2.5 L Random Vancomycin 32.2 09/10/18 07:29 WBC RBC Hgb Hct MCV MCH MCHC RDW Plt Count MPV Neut % (Auto) Lymph % (Auto) Hendry % (Auto) Eos % (Auto) Baso % (Auto) Neut # (Auto) Lymph # (Auto) Hendry # (Auto) Eos # (Auto) Baso # (Auto) WBC Differential Differential Comment PT INR APTT 57.7 H Sodium Potassium Chloride Carbon Dioxide Anion Gap BUN Creatinine Estimated GFR POC Glucose Random Glucose Calcium Phosphorus Magnesium Total Bilirubin AST ALT Alkaline Phosphatase Total Protein Albumin Random Vancomycin Imaging: Chest X-Ray 09/08/18 00:00 CONCLUSION: 1. Right subclavian central venous catheter now in place with the tip at the junction of the subclavian vein and brachiocephalic vein. 2. No evidence of pneumothorax. 3. Possible left upper lung perihilar consolidation. 4. Persistent cardiac silhouette enlargement. Abdomen Ultrasound 09/09/18 00:00 CONCLUSION: 1. Enlarged echogenic liver suggesting fatty infiltration 2. , Gallbladder not visualized Chest CTA 09/09/18 00:00 CONCLUSION: 1. Very limited examination due to patient body habitus. 2. Elongated filling defect in the right pulmonary artery suspicious for pulmonary embolus. Prominent artifact related to patient body habitus is seen through out the central pulmonary arteries limiting the evaluation. The segmental and subsegmental branches cannot be effectively evaluated on this study. Nuclear medicine VQ scan could be performed for further evaluation. 3. Moderate diffuse cardiomegaly. 4. Moderate-sized area of right lower lobe pulmonary consolidation. 5. Bilateral dependent lower lobe atelectasis. Head CT 09/09/18 00:00 CONCLUSION: No acute intracranial findings. . Venous Doppler Study 09/09/18 00:00 CONCLUSION: 1. Negative exam with no evidence of deep venous thrombosis. Objective Remarks: GENERAL: Patient is 47 yo intubated and sedated SKIN: Warm and dry. HEAD: Normocephalic. EYES: No scleral icterus. No injection or drainage. NECK: Supple, trachea midline. No JVD or lymphadenopathy. CARDIOVASCULAR: Regular rate and rhythm without murmurs, gallops, or rubs. RESPIRATORY: Breath sounds equal bilaterally. No accessory muscle use. GASTROINTESTINAL: Abdomen soft, non-tender, nondistended. MUSCULOSKELETAL: No cyanosis, + edema. Neuro: Sedated, intubated Assessment and Plan - Assessment and Plan Plan: VDRF Obesity hypoventilation syndrome Pulmonary embolism Mild elevated trop LEIDA Leukocytosis..trending down Elevated AST CHF Plan Neuro: On Diprivan infusion for sedation, Daily sedation vacation. CT brain: No acute intracranial findings Pulm: Continue with vent support keep sats >92% Bronchodilators, ICU vent bundle. SBT daily as prema. Check ABG CTA chest: Very limited examination due to patient body habitus. Elongated filling defect in the right pulmonary artery suspicious for PE. Moderate-sized area of right lower lobe pulmonary consolidation. Bilateral dependent lower lobe atelectasis. Continue Heparin drip. Monitor PTT per protocol. CV: Monitor HR and BP keep MAP>65mmHg Echo 09/09: Technically difficult study making assessment of left ventricular function and wall motion suboptimal. Grossly, left ventricular function appears severely reduced. probable global hypokinesis. Cards eval. : Monitor renal function, I/O's, avoid nephrotoxins Renal function worse with Cr: 4.02 from 2.60, UOP: 200ml overnight. Renal is following Dr. Majano, s/p Bumex yesterday . Spoke with Dr. Majano will give Bumex 2mg IV x1 followed bu Bumex 1mg/hr if there is no improvements by tomorrow patient will need HD. US abdomen: No masses or hydronephrosis, enlarged liver likely due to fatty infiltration. GI: On Pepcid for GI prophylaxis, change tube feeds Nepro with goal rate 50ml/ hr. ID: Continue abx ( vanco, Zosyn) monitor for signs of infections ( fever, WBC) Strep pneumonia and Legionella urinary Ag negative 09/09 Blood, sputum and urine cx: Pending Heme: Monitor CBC, coags- on Heparin drip. Endo: SSI with accuchecks for glycemic control DVT GI prophylaxis -SCDs -Heparin drip -Pepcid 30 minutes of critical care
[2018-09-10 09:32] LABS: ABG Base Excess -0.3 mmol/L (-2-2); ABG PCO2 35 mmHg (38-42); ABG PO2 126 mmHG (61-120)
--- NOTE | 2018-09-10 09:52 | ECG ---
Date Performed: 09/08/2018 Time Performed: 22:47:33 PTAGE: 89 years EKG: ATRIAL FLUTTER/TACHYCARDIA WITH RAPID VENTRICULAR RESPONSE LEFT ANTERIOR FASCICULAR BLOCK A BNORMAL QRS-T ANGLE Prolonged QTc ABNORMAL ECG NO PREVIOUS TRACING DOCTOR: Fernie Silva Interpretating Date/Time 09/10/2018 09:51:27
--- NOTE | 2018-09-10 09:52 | ECG ---
Date Performed: 09/09/2018 Time Performed: 07:41:42 PTAGE: 89 years EKG: --- Warning: Data quality may affect interpretation --- Atrial flutter with 4:1 A-V block. Lead(s) unsuitable for analysis: V3 Left anterior fascicular block Inferior ST elevation - possible e karis repolarization Extensive ST-T changes may be due to myocardial ischemia Abnormal ECG PREVIOUS TRACING : 09/08/2018 22.47 DOCTOR: Fernie Silva Interpretating Date/Time 09/10/2018 09:51:39
[2018-09-10] MEDS: Famotidine PF Inj 20 MG/2 ML Vial IV.PUSH SCH ×2 (09:59→20:23)
[2018-09-10] MEDS: Senna/Docusate Sodium 8.6/50 MG Tablet PO SCH ×2 (09:59→20:23)
[2018-09-10] MEDS ORDERED: Potassium Chlor 20 mEq Premix 20 MEQ/100 ML PIGGYBACK IV.SIG ONE (12:00)
[2018-09-10] MEDS ORDERED: Bumetanide Inj 25 MG/100 ML BAG IV.CONT SCH (12:00)
--- NOTE | 2018-09-10 15:13 | P.PNNP ---
Subjective Interval history: Patient's urine output is low. Volume overload. Intubated, but she is awake. Able to understand questions. Physical Exam Vital signs: Vital Signs 09/09/18 15:30 09/09/18 16:00 09/09/18 16:17 Temperature 98.6 F Pulse Rate 86 86 Respiratory Rate 22 Blood Pressure 112/61 105/75 Pulse Oximetry 100 100 98 09/09/18 16:31 09/09/18 17:00 09/09/18 17:04 Temperature Pulse Rate 93 H 101 H 103 H Respiratory Rate Blood Pressure 66/48 L 129/63 Pulse Oximetry 97 100 100 09/09/18 17:36 09/09/18 18:00 09/09/18 18:01 Temperature Pulse Rate 93 H 91 H 91 H Respiratory Rate Blood Pressure 119/64 100/59 L Pulse Oximetry 100 99 99 09/09/18 18:30 09/09/18 19:00 09/09/18 19:30 Temperature Pulse Rate 90 90 89 Respiratory Rate Blood Pressure 101/56 L 103/55 L 102/70 Pulse Oximetry 99 99 100 09/09/18 19:50 09/09/18 20:00 09/09/18 20:30 Temperature 98.8 F Pulse Rate 87 91 H 91 H Respiratory Rate 20 20 Blood Pressure 105/57 L 102/64 Pulse Oximetry 100 100 100 09/09/18 21:00 09/09/18 21:30 09/09/18 22:00 Temperature Pulse Rate 90 90 90 Respiratory Rate Blood Pressure 100/70 107/63 105/68 Pulse Oximetry 100 100 99 09/09/18 22:30 09/09/18 23:00 09/09/18 23:11 Temperature Pulse Rate 90 89 90 Respiratory Rate 20 Blood Pressure 117/69 110/64 Pulse Oximetry 100 100 100 09/09/18 23:30 09/10/18 00:00 09/10/18 00:30 Temperature Pulse Rate 90 90 88 Respiratory Rate Blood Pressure 112/61 112/69 105/60 Pulse Oximetry 99 99 98 09/10/18 01:00 09/10/18 01:30 09/10/18 02:00 Temperature Pulse Rate 88 88 86 Respiratory Rate Blood Pressure 110/74 122/55 L 111/78 Pulse Oximetry 99 99 100 09/10/18 02:30 09/10/18 03:00 09/10/18 03:30 Temperature 98.6 F Pulse Rate 85 85 85 Respiratory Rate Blood Pressure 110/70 112/63 113/71 Pulse Oximetry 100 100 100 09/10/18 03:37 09/10/18 03:53 09/10/18 04:00 Temperature Pulse Rate 87 97 H Respiratory Rate 22 20 Blood Pressure Pulse Oximetry 100 100 09/10/18 04:01 09/10/18 04:30 09/10/18 05:00 Temperature Pulse Rate 94 H 104 H 94 H Respiratory Rate Blood Pressure 152/81 H 141/82 H 115/65 Pulse Oximetry 100 100 100 09/10/18 05:30 09/10/18 06:00 09/10/18 07:46 Temperature Pulse Rate 90 88 90 Respiratory Rate 20 Blood Pressure 108/65 105/64 Pulse Oximetry 100 100 100 09/10/18 08:00 09/10/18 10:00 09/10/18 10:21 Temperature 99.1 F Pulse Rate 87 87 Respiratory Rate 20 22 Blood Pressure 101/62 Pulse Oximetry 100 98 09/10/18 11:35 09/10/18 12:00 09/10/18 13:37 Temperature 99.3 F Pulse Rate 102 H 101 H Respiratory Rate 24 22 25 H Blood Pressure 119/73 Pulse Oximetry 98 97 09/10/18 14:00 Temperature Pulse Rate 112 H Respiratory Rate Blood Pressure Pulse Oximetry Intake & Output 09/09/18 09/10/18 09/10/18 18:59 06:59 18:59 Intake Total 2063 / 2063 821 / 821 150 / 150 Output Total 200 / 200 200 / 200 Balance 1863 / 1863 621 / 621 150 / 150 Weight 176.1 kg Intake: IV 1974 / 1974 550 / 550 150 / 150 Sodium Bicarbonate 8.4% Inj 50 50 / 50 ML @ 0 mls/hr .ROUTE .[facility] Rx#:[id number] Heparin/D5W 25,000 U/250 mL 25, 250 / 250 000 unit In 250 ml @ Per Protocol IV.CONT TITRATE PRN Rx #:[id number] Diprivan 1000 mg/100 ml Inj 1, 200 / 200 200 / 200 100 / 100 000 mg In 100 ml @ 5 MCG/KG/MIN 6.804 mls/hr IV.CONT TITRATE PRN Rx#:[id number] NS Inj 1,000 ML @ 84 mls/hr IV. 1000 / 1000 CONT .[id number] [facility] Rx#:[id number] Cardizem Inj 125 MG In NS Inj 100 / 100 100 ML @ 5 MG/HR 5 mls/hr IV. CONT TITRATE PRN Rx#:[id number] Zosyn 2.25 GM Premix 50 ML @ 100 / 100 100 / 100 50 / 50 100 mls/hr IV.SIG Q6H [facility] Rx#: [id number] Vancomycin Inj 2,500 MG In NS 525 / 525 Inj 500 ML @ 250 mls/hr IV.SIG ONCE ONE Rx#:[id number] Oral 0 / 0 Tube Feeding 88 / 88 251 / 251 Water Bolus Amount 20 / 20 Output: Urine 200 / 200 Urine Amount (Catheter) 200 / 200 Indwelling Urethral Catheter 200 / 200 Other: Date of Last Bowel Movement 09/09/18 09/10/18 09/10/18 # Incontinent Bowel Movements 1 - Constitutional no acute distress - Routine HEENT Exam Head: Present: normocephalic, atraumatic Eye: Present: EOMI, PERRL ENT: Present: mucous membranes moist - Routine Neck Exam Present: supple - Routine Cardiovascular Exam Present: RRR, S1, S2 - Routine Abdominal Exam Present: soft - Routine Neurological Exam Present: alert - Urinary Catheter Management Indwelling Urethral Catheter Cath placed during this visit: yes Reason for continuing: Hourly intake/output Insertion date: 09/08/18 Insertion time: 22:52 Assessment and Plan - Assessment (1) Acute kidney failure Code(s): N17.9 - Acute kidney failure, unspecified Status: Acute Plan: Baseline renal function is not known. May have renal hypoperfusion. Renal function has declined today, could have developed contrast nephropathy after CTA. Clinically she appears to fluid overloaded. Start Bumex drip. Discussed with photo intern. May need dialysis if no improvement in renal function. (2) Respiratory failure Code(s): J96.90 - Respiratory failure, unspecified, unspecified whether with hypoxia or hypercapnia Status: Acute Plan: Patient with PE, and possibly fluid overload. On Heparin drip. Bumex drip. (3) Obesity Code(s): E66.9 - Obesity, unspecified Status: Acute Plan: patient has obesity-hypoventilation syndrome. (4) Pulmonary embolism Code(s): I26.99 - Other pulmonary embolism without acute cor pulmonale Status : Acute Plan: On Heparin.
[2018-09-10] MEDS: Heparin Drip 25,000 UNIT/250 ML BAG IV.CONT PRN (18:11)
--- NOTE | 2018-09-10 19:39 | P.CONCA ---
History of Present Illness Service: Cardiology Consult date: 09/10/18 Requesting Physician: Ellie Villegas Reason for Consult: Elevated Troponin levels Primary Care Provider: UNKNOWN History of Present Illness: This is a 47-year-old female who was brought in by EMS in respiratory failure and unresponsiveness. Family stated that she has a history of CHF and obesity. Per the records, family also stated that she takes multiple medications but they are unaware of what the medications are for. She is currently intubated but does wake up to voice and attempts to follow commands. She is currently stable on monitor. Review of Systems unobtainable due to endotracheal tube PMFSH - History History Provided By: Vending Technician / EMT - Medical / Surgical Hx Neg / Unobtainable Medical Problems Denied: Unable to Obtain - Medical History Medical History: Medical History (Last Updated 09/09/18 @ 13:21 by Fidelina Lo) History of MRSA infection Onset Date: ~09/09/18 - Tobacco History Smoking Status: Unknown if ever smoked - Alcohol History How Often Do You Have a Drink Containing Alcohol: Unable to Obtain Medications and Allergies Allergies Allergy/AdvReac Type Severity Reaction Status Date / Time No Allergy Information Allergy Unverified 09/08/18 22:46 Available Home Medications Medication Instructions Recorded Confirmed Type Unable to Obtain Home Meds 09/09/18 09/09/18 History Active Medications: Active Medications Acetaminophen (Tylenol) 650 mg PO Q6H PRN PRN Reason: PAIN 1-10 AND/OR FEVER >101F Al Hydroxide/Mg Hydroxide (Milk Of Magnesia Liq) 30 ml PO Q12H PRN PRN Reason: Mild Constipation Albuterol (Duoneb Neb (Prn)) 1 ampul NEB Q2HR NEB PRN PRN Reason: WHEEZING Albuterol (Duoneb Neb ([place])) 1 ampul NEB Q4HR NEB [facility] Last Admin: 09/10/18 15:22 Dose: 1 ampul Bisacodyl (Dulcolax Supp) 10 mg RECTAL DAILY PRN PRN Reason: SEVERE CONSITIPATION Chlorhexidine Gluconate (Chlorhexidine 2% Cloth) 3 pack TOPICAL DAILY@0400 [facility] Stop: 09/14/18 03:59 Last Admin: 09/10/18 04:50 Dose: 3 pack Chlorhexidine Gluconate (Chlorhexidine 2% Cloth) 3 pack TOPICAL DAILY@0400 PRN PRN Reason: Extra cloth needed Stop: 09/14/18 03:59 Chlorhexidine Gluconate (Peridex 0.12% Oral Kit) 15 ml OROPHARYNG BID@0800, 2000 [facility] Last Admin: 09/10/18 09:04 Dose: 15 ml Dextrose (D50w Vial) 50 ml IV.PUSH UNSCH PRN PRN Reason: PER HYPOGLYCEMIA PROTOCOL Famotidine (Pepcid Pf Inj) 10 mg IV.PUSH Q12HR [facility] Glucagon (Glucagon Inj) 1 mg OTHER PRN PRN PRN Reason: for Hypoglycemia Protocol Propofol (Diprivan 1000 Mg/100 Ml Inj) 1,000 mg in 100 mls @ 6.804 mls/hr IV.CONT TITRATE PRN; Protocol PRN Reason: Per Protocol Last Admin: 09/10/18 18:13 Dose: 30 mcg/kg/min, 40.82 mls/hr Diltiazem HCl 125 mg/ Sodium (Chloride) 125 mls @ 5 mls/hr IV.CONT TITRATE PRN ; Protocol PRN Reason: Per Protocol Last Titration: 09/09/18 13:00 Dose: 0 mg/hr, 0 mls/hr Heparin Sodium/Dextrose (Heparin/D5w 25,000 U/250 Ml) 25,000 unit in 250 mls @ 0 mls/hr IV.CONT TITRATE PRN; Protocol PRN Reason: Per Protocol Last Admin: 09/10/18 18:11 Dose: 1,300 units/hr, 13 mls/hr Piperacillin/Tazobactam/Dextrose (Zosyn 2.25 Gm Premix) 50 mls @ 100 mls/hr IV.SIG Q6H [facility] Last Infusion: 09/10/18 18:31 Dose: Infused Bumetanide (Bumex Inj) 25 mg in 100 mls @ 4 mls/hr IV.CONT .Q24H [facility] Last Admin: 09/10/18 12:49 Dose: 1 mg/hr, 4 mls/hr Insulin Human Regular (Novolin R Correctional Sugar Inj) 0 units SQ Q4HR [facility]; Protocol Last Admin: 09/10/18 15:40 Dose: Not Given Lactulose (Lactulose Liq) 30 ml PO DAILY PRN PRN Reason: SEVERE CONSITIPATION Lactulose (Lactulose Liq) 30 ml PO BID [facility] Last Admin: 09/10/18 09:58 Dose: 30 ml Midazolam HCl (Versed Inj) 2 mg IV.PUSH Q1H PRN PRN Reason: SEDATION Miscellaneous Medication () 1 each OROPHARYNG 0000,0400,1200,1600 [facility] Last Admin: 09/10/18 15:29 Dose: 1 each Morphine Sulfate (Morphine Inj) 2 mg IV.PUSH Q2H PRN PRN Reason: PAIN SCALE 6 TO 10 Ondansetron HCl (Zofran Inj) 4 mg IV.PUSH Q6H PRN PRN Reason: NAUSEA OR VOMITING Pharmacy Profile Note (Vancomycin Consult Pharmacy) 1 each OTHER UNSCH PRN PRN Reason: Pharmacy to dose Senna/Docusate Sodium (Nereida-Colace) 1 tab PO BID [facility] Last Admin: 09/10/18 09:59 Dose: Not Given Sennosides (Senokot) 17.2 mg PO Q12H PRN PRN Reason: Moderate Constipation Sodium Chloride (Ns Flush) 2 ml IV.FLUSH BID [facility] Last Admin: 09/10/18 09:59 Dose: 2 ml Sodium Chloride (Ns Flush) 2 ml IV.FLUSH PRN PRN PRN Reason: FLUSH AFTER USING IV ACCESS Exam Vital signs: Vital Signs 09/09/18 19:30 09/09/18 19:50 09/09/18 20:00 Temperature 98.8 F Pulse Rate 89 87 91 H Respiratory Rate 20 20 Blood Pressure 102/70 105/57 L Pulse Oximetry 100 100 100 09/09/18 20:30 09/09/18 21:00 09/09/18 21:30 Temperature Pulse Rate 91 H 90 90 Respiratory Rate Blood Pressure 102/64 100/70 107/63 Pulse Oximetry 100 100 100 09/09/18 22:00 09/09/18 22:30 09/09/18 23:00 Temperature Pulse Rate 90 90 89 Respiratory Rate Blood Pressure 105/68 117/69 110/64 Pulse Oximetry 99 100 100 09/09/18 23:11 09/09/18 23:30 09/10/18 00:00 Temperature Pulse Rate 90 90 90 Respiratory Rate 20 Blood Pressure 112/61 112/69 Pulse Oximetry 100 99 99 09/10/18 00:30 09/10/18 01:00 09/10/18 01:30 Temperature Pulse Rate 88 88 88 Respiratory Rate Blood Pressure 105/60 110/74 122/55 L Pulse Oximetry 98 99 99 09/10/18 02:00 09/10/18 02:30 09/10/18 03:00 Temperature 98.6 F Pulse Rate 86 85 85 Respiratory Rate Blood Pressure 111/78 110/70 112/63 Pulse Oximetry 100 100 100 09/10/18 03:30 09/10/18 03:37 09/10/18 03:53 Temperature Pulse Rate 85 87 Respiratory Rate 22 20 Blood Pressure 113/71 Pulse Oximetry 100 100 09/10/18 04:00 09/10/18 04:01 09/10/18 04:30 Temperature Pulse Rate 97 H 94 H 104 H Respiratory Rate Blood Pressure 152/81 H 141/82 H Pulse Oximetry 100 100 100 09/10/18 05:00 09/10/18 05:30 09/10/18 06:00 Temperature Pulse Rate 94 H 90 88 Respiratory Rate Blood Pressure 115/65 108/65 105/64 Pulse Oximetry 100 100 100 09/10/18 07:46 09/10/18 08:00 09/10/18 10:00 Temperature 99.1 F Pulse Rate 90 87 87 Respiratory Rate 20 20 Blood Pressure 101/62 Pulse Oximetry 100 100 09/10/18 10:21 09/10/18 11:35 09/10/18 12:00 Temperature 99.3 F Pulse Rate 102 H 101 H Respiratory Rate 22 24 22 Blood Pressure 119/73 Pulse Oximetry 98 98 09/10/18 13:37 09/10/18 14:00 09/10/18 15:25 Temperature Pulse Rate 112 H 98 H Respiratory Rate 25 H 20 Blood Pressure Pulse Oximetry 97 100 09/10/18 16:00 09/10/18 17:04 09/10/18 18:00 Temperature 99.8 F H Pulse Rate 95 H 93 H Respiratory Rate 22 20 Blood Pressure 90/51 L Pulse Oximetry 99 99 Intake & Output 09/10/18 09/10/18 09/11/18 06:59 18:59 06:59 Intake Total 821 / 821 895 / 895 Output Total 200 / 200 500 / 500 Balance 621 / 621 395 / 395 Weight 176.1 kg Intake: IV 550 / 550 732 / 732 Heparin/D5W 25,000 U/250 mL 25, 250 / 250 232 / 232 000 unit In 250 ml @ Per Protocol IV.CONT TITRATE PRN Rx #:[id number] Diprivan 1000 mg/100 ml Inj 1, 200 / 200 300 / 300 000 mg In 100 ml @ 5 MCG/KG/MIN 6.804 mls/hr IV.CONT TITRATE PRN Rx#:[id number] Zosyn 2.25 GM Premix 50 ML @ 100 / 100 100 / 100 100 mls/hr IV.SIG Q6H [facility] Rx#: [id number] KCl 20 mEq Premix Inj 20 meq In 100 / 100 100 ml @ 50 mls/hr IV.SIG ONCE ONE Rx#:[id number] Tube Feeding 251 / 251 133 / 133 Water Bolus Amount 20 / 20 30 / 30 Output: Urine Amount (Catheter) 200 / 200 500 / 500 Indwelling Urethral Catheter 200 / 200 500 / 500 Other: Date of Last Bowel Movement 09/10/18 09/10/18 # Incontinent Bowel Movements 1 - Constitutional no acute distress - Routine HEENT Exam Head: Present: normocephalic Eye: Present: PERRL ENT: Present: mucous membranes moist - Routine Respiratory Exam Present: patient mechanically ventilated - Routine Cardiovascular Exam Present: S1, S2. Absent: murmur, gallop, rubs Comments: heart sounds are very distant. - Routine Abdominal Exam Present: normoactive bowel sounds Comments: morbidly obese - Routine Extremities Exam Present: edema, pulses intact, normal capillary refill. Absent: cyanosis, clubbing - Routine Skin Exam Present: intact - Routine Neurological Exam Present: moving all extremities Results 09/10/18 04:05 09/10/18 04:05 Cardiac Enzymes 09/09/18 09/09/18 09/09/18 Range/Units 00:33 06:20 09:20 AST 162 H 128 H (15-37) U/L Troponin I 0.22 H 0.33 H D (0.02-0.05) ng/mL 09/09/18 09/09/18 09/10/18 Range/Units 12:08 12:08 04:05 AST 104 H (15-37) U/L Troponin I Cancelled 0.38 H (0.02-0.05) ng/mL Coagulation 09/09/18 09/09/18 09/09/18 Range/Units 00:33 03:50 12:44 PT 10.7 (9.8-11.6) sec APTT 29.6 185.1 H* D (23.4-31.7) sec 09/09/18 09/09/18 09/10/18 Range/Units 14:55 22:20 01:00 PT (9.8-11.6) sec APTT 90.6 H* D 91.6 H* 67.1 H D (23.4-31.7) sec 09/10/18 09/10/18 Range/Units 04:05 07:29 PT 10.8 (9.8-11.6) sec APTT 65.7 H 57.7 H (23.4-31.7) sec CBC 09/09/18 09/09/18 09/10/18 Range/Units 00:33 09:20 04:05 WBC 15.4 H 7.3 D 6.3 (4.0-11.0) th/mm3 RBC 4.85 4.41 4.34 (4.00-5.30) mil/mm3 Hgb 12.9 11.6 11.5 L (11.6-15.3) gm/dL Hct 41.3 37.0 35.3 (35.0-46.0) % Plt Count 348 264 265 (150-450) th/mm3 Neut # (Auto) 13.1 H 5.9 3.1 (1.8-7.7) th/mm3 Lymph # (Auto) 1.9 0.9 L 2.3 (1.0-4.8) th/mm3 [place]wey # (Auto) 0.3 0.4 0.6 (0.0-0.9) th/mm3 Eos # (Auto) 0.1 0.0 0.2 (0.0-0.4) th/mm3 Baso # (Auto) 0.0 0.0 0.0 (0.0-0.2) th/mm3 Comprehensive Metabolic Panel 09/09/18 09/09/18 09/10/18 Range/Units 00:33 09:20 04:05 Sodium 143 144 144 (136-145) meq/L Potassium 4.0 3.1 L D 3.4 L (3.5-5.1) meq/L Chloride 104 105 106 (98-107) meq/L Carbon Dioxide 26.7 27.2 26.4 (21.0-32.0) meq/L BUN 21 H 29 H 36 H (7-18) mg/dL Creatinine 2.05 H 2.60 H 4.02 H (0.50-1.00) mg/dL Calcium 7.5 L 7.7 L 7.7 L (8.5-10.1) mg/dL AST 162 H 128 H 104 H (15-37) U/L ALT 116 H 95 H 91 H (10-53) U/L Alkaline Phosphatase 182 H 137 H 115 (45-117) U/L Total Protein 7.7 6.6 D 6.7 (6.4-8.2) g/dL Albumin 3.2 L 2.7 L 2.5 L (3.4-5.0) g/dL Intake and Output 09/10/18 09/10/18 09/10/18 06:59 14:59 22:59 Intake Total 521 / 521 150 / 150 745 / 745 Output Total 200 / 200 500 / 500 Balance 321 / 321 150 / 150 245 / 245 Intake: IV 250 / 250 150 / 150 582 / 582 Heparin/D5W 25,000 U/250 mL 25, 232 / 232 000 unit In 250 ml @ Per Protocol IV.CONT TITRATE PRN Rx #:[id number] Diprivan 1000 mg/100 ml Inj 1, 200 / 200 100 / 100 200 / 200 000 mg In 100 ml @ 5 MCG/KG/MIN 6.804 mls/hr IV.CONT TITRATE PRN Rx#:[id number] Zosyn 2.25 GM Premix 50 ML @ 50 / 50 50 / 50 50 / 50 100 mls/hr IV.SIG Q6H [facility] Rx#: [id number] KCl 20 mEq Premix Inj 20 meq In 100 / 100 100 ml @ 50 mls/hr IV.SIG ONCE ONE Rx#:[id number] Tube Feeding 251 / 251 133 / 133 Water Bolus Amount 20 / 20 30 / 30 Output: Urine Amount (Catheter) 200 / 200 500 / 500 Indwelling Urethral Catheter 200 / 200 500 / 500 Other: Date of Last Bowel Movement 09/10/18 09/10/18 09/10/18 # Incontinent Bowel Movements 1 Weight 176.1 kg - Imaging and Cardiology Imaging: Impressions Chest X-Ray 09/08/18 00:00 CONCLUSION: 1. Markedly enlarged cardiac silhouette. 2. Endotracheal tube and nasogastric tube in place. Chest X-Ray 09/08/18 00:00 CONCLUSION: 1. Right subclavian central venous catheter now in place with the tip at the junction of the subclavian vein and brachiocephalic vein. 2. No evidence of pneumothorax. 3. Possible left upper lung perihilar consolidation. 4. Persistent cardiac silhouette enlargement. Abdomen Ultrasound 09/09/18 00:00 CONCLUSION: 1. Enlarged echogenic liver suggesting fatty infiltration 2. , Gallbladder not visualized Chest CTA 09/09/18 00:00 CONCLUSION: 1. Very limited examination due to patient body habitus. 2. Elongated filling defect in the right pulmonary artery suspicious for pulmonary embolus. Prominent artifact related to patient body habitus is seen through out the central pulmonary arteries limiting the evaluation. The segmental and subsegmental branches cannot be effectively evaluated on this study. Nuclear medicine VQ scan could be performed for further evaluation. 3. Moderate diffuse cardiomegaly. 4. Moderate-sized area of right lower lobe pulmonary consolidation. 5. Bilateral dependent lower lobe atelectasis. Head CT 09/09/18 00:00 CONCLUSION: No acute intracranial findings. . Venous Doppler Study 09/09/18 00:00 CONCLUSION: 1. Negative exam with no evidence of deep venous thrombosis. Assessment and Plan - Assessment (1) Acute kidney failure Code(s): N17.9 - Acute kidney failure, unspecified Status: Acute (2) Respiratory failure Code(s): J96.90 - Respiratory failure, unspecified, unspecified whether with hypoxia or hypercapnia Status: Acute (3) Obesity Code(s): E66.9 - Obesity, unspecified Status: Acute - Plan Troponin levels are slightly elevated, likely related to her renal failure. Patient is in acute renal failure at this time, renal evaluation in progress. We will continue aggressive cardiac risk factor modifications. We will continue to monitor patient during her hospitalization. Echo shows severe LV dysfunction; continue and titrate therapy for CHF. Discussed plan of care with family at bedside, they verbalized understanding. Continue ICU care. The patient was seen and evaluated by Dr. Law who participated in care, management and decision making. - Attending Attestation Patient seen and examined. I reviewed and agree with the evaluation and plan as presented. Echo with severe LV dysfunction. Continue and titrate tx for CHF. Continue ICU care.
[2018-09-11] MEDS: Propofol 1000 mg/100 ml Inj 1,000 MG/100 ML BOTTLE IV.CONT PRN ×9 (00:30→23:27)
[2018-09-11] MEDS: Insulin NovoLIN Regular Correctional Sugar Inj SQ SCH ×6 (00:57→20:23)
[2018-09-11] MEDS: Oral Hygiene Kit OROPHARYNG SCH ×4 (00:58→16:13)
[2018-09-11] MEDS: Chlorhexidine Gluconate 2% 1 Pack (2 Cloths) TOPICAL SCH (04:17)
[2018-09-11] MEDS: Piperacil/Tazo 2.25 GM Premix 50 ML IV.SIG SCH ×4 (04:17→22:53)
[2018-09-11 04:49] LABS: Hematocrit 32.9 % (35.0-46.0); Hemoglobin 10.5 gm/dL (11.6-15.3); Mean Corpuscular HGB Conc 31.8 % (32.0-36.0); Mean Corpuscular Volume 81.5 fL (80.0-100.0); Mean Platelet Volume 8.3 fL (7.0-11.0); Platelet Count 255 th/mm3 (150-450); Red Blood Count 4.04 mil/mm3 (4.00-5.30)
[2018-09-11 05:14] LABS: Alanine Aminotransferase 77 U/L (10-53); Albumin 2.4 g/dL (3.4-5.0); Alkaline Phosphatase 102 U/L (45-117); Anion Gap 12 meq/L (5-15); Aspartate Aminotransferase 63 U/L (15-37); Blood Urea Nitrogen 46 mg/dL (7-18); Calcium 7.8 mg/dL (8.5-10.1); Carbon Dioxide 26.3 meq/L (21.0-32.0); Chloride 106 meq/L (98-107); Glomerular Filtration Rate 8 mL/min (>89); Glucose,Random 123 mg/dL (74-106); Potassium 3.3 meq/L (3.5-5.1); Sodium 144 meq/L (136-145); Total Protein 6.6 g/dL (6.4-8.2); Vancomycin,Random 18.8 Comment
--- NOTE | 2018-09-11 07:30 | P.PNCC ---
Subjective Subjective Remarks/Hospital Course: Middle-aged morbidly obese female was brought in emergently department by EMS due to respiratory failure and unresponsiveness. She was brought in being bagged by BV. Patient was a GCS of 3 upon arrival and hence in no condition to give any history. As per EMS the call went out as shortness of breath while patient got into the car. When they arrived she was in severe respiratory distress. They put her on BiPAP but shortly patient started to lose consciousness with agonal respirations. Family was at the scene and informed EMS that she has history of congestive heart failure. Patient was tachycardic upon arrival with heart rate in 170s. It appeared to be irregularly irregular on the monitor. She was immediately intubated by ED attending with improvement in her heart rate. There is no additional history available. Per report, the family admits the patient has been taking a lot of medications but they are unaware of the names or reasons. 09/10 Patient remains sedated with Diprivan and intubated. Renal function is worsening with Cr: 4.02 from 2.60. Afebrile. On Heparin drip. 09/11: Patient remains intubated sedated critically ill. Urine output has improved with Bumex infusion however creatinine has worsened from 4-5.5 today. D/W with nephrology-no acute indication for dialysis however considering creatinine worsening, will reduce Bumex infusion 0.5 mg/h. Chest x-ray is pending at this time Objective Vital Signs / I&O: Vital Signs 09/10/18 07:46 09/10/18 08:00 09/10/18 10:00 Temperature 99.1 F Pulse Rate 90 87 87 Respiratory Rate 20 20 Blood Pressure 101/62 Pulse Oximetry 100 100 09/10/18 10:21 09/10/18 11:35 09/10/18 12:00 Temperature 99.3 F Pulse Rate 102 H 101 H Respiratory Rate 22 24 22 Blood Pressure 119/73 Pulse Oximetry 98 98 09/10/18 13:37 09/10/18 14:00 09/10/18 15:25 Temperature Pulse Rate 112 H 98 H Respiratory Rate 25 H 20 Blood Pressure Pulse Oximetry 97 100 09/10/18 16:00 09/10/18 16:30 09/10/18 17:00 Temperature 99.8 F H Pulse Rate 95 H 93 H 94 H Respiratory Rate 22 Blood Pressure 90/51 L 95/58 L 98/59 L Pulse Oximetry 99 99 99 09/10/18 17:04 09/10/18 17:32 09/10/18 18:00 Temperature Pulse Rate 107 H 93 H Respiratory Rate 20 Blood Pressure 133/62 103/63 Pulse Oximetry 99 99 99 09/10/18 18:30 09/10/18 19:00 09/10/18 19:30 Temperature Pulse Rate 91 H 90 88 Respiratory Rate Blood Pressure 104/66 108/66 109/66 Pulse Oximetry 99 100 100 09/10/18 19:45 09/10/18 19:59 09/10/18 20:00 Temperature 99.8 F H Pulse Rate 88 88 Respiratory Rate 20 20 20 Blood Pressure 112/69 Pulse Oximetry 100 100 09/10/18 20:30 09/10/18 21:00 09/10/18 21:30 Temperature Pulse Rate 87 87 86 Respiratory Rate Blood Pressure 113/69 116/70 115/67 Pulse Oximetry 100 100 100 09/10/18 22:00 09/10/18 22:10 09/10/18 22:30 Temperature Pulse Rate 86 84 Respiratory Rate 20 Blood Pressure 117/73 115/67 Pulse Oximetry 100 100 100 09/10/18 23:00 09/10/18 23:30 09/10/18 23:53 Temperature Pulse Rate 83 83 82 Respiratory Rate 20 Blood Pressure 117/71 111/65 Pulse Oximetry 100 100 09/11/18 00:00 09/11/18 00:30 09/11/18 01:00 Temperature Pulse Rate 84 83 82 Respiratory Rate Blood Pressure 117/76 119/71 121/70 Pulse Oximetry 100 99 99 09/11/18 01:25 09/11/18 01:30 09/11/18 02:00 Temperature Pulse Rate 81 81 Respiratory Rate 20 Blood Pressure 121/76 121/76 Pulse Oximetry 99 99 100 09/11/18 02:30 09/11/18 03:00 09/11/18 03:30 Temperature Pulse Rate 80 79 78 Respiratory Rate Blood Pressure 119/75 123/77 120/74 Pulse Oximetry 100 100 99 09/11/18 04:00 09/11/18 04:20 09/11/18 04:21 Temperature 98 F Pulse Rate 78 77 Respiratory Rate 20 20 Blood Pressure 117/87 Pulse Oximetry 100 100 09/11/18 04:30 09/11/18 05:00 09/11/18 06:00 Temperature Pulse Rate 76 77 77 Respiratory Rate Blood Pressure 114/74 110/75 Pulse Oximetry 100 99 Intake & Output 09/10/18 09/11/18 09/11/18 18:59 06:59 18:59 Intake Total 895 / 895 880 / 880 Output Total 500 / 500 1425 / 1425 Balance 395 / 395 -545 / -545 Weight 163.8 kg Intake: IV 732 / 732 500 / 500 Heparin/D5W 25,000 U/250 mL 25, 232 / 232 000 unit In 250 ml @ Per Protocol IV.CONT TITRATE PRN Rx #:[id number] Diprivan 1000 mg/100 ml Inj 1, 300 / 300 400 / 400 000 mg In 100 ml @ 5 MCG/KG/MIN 6.804 mls/hr IV.CONT TITRATE PRN Rx#:[id number] Zosyn 2.25 GM Premix 50 ML @ 100 / 100 100 / 100 100 mls/hr IV.SIG Q6H VICKY Rx#: [id number] KCl 20 mEq Premix Inj 20 meq In 100 / 100 100 ml @ 50 mls/hr IV.SIG ONCE ONE Rx#:[id number] Tube Feeding 133 / 133 280 / 280 Water Bolus Amount 30 / 30 100 / 100 Output: Urine Amount (Catheter) 500 / 500 1425 / 1425 Indwelling Urethral Catheter 500 / 500 1425 / 1425 Other: Date of Last Bowel Movement 09/10/18 09/10/18 # Incontinent Bowel Movements 1 Result Diagrams: 09/11/18 03:35 09/11/18 03:35 Objective Remarks: GENERAL: Patient is 47 yo intubated and sedated SKIN: Warm and dry. HEAD: Normocephalic. EYES: No scleral icterus. No injection or drainage. NECK: Supple, trachea midline. No JVD or lymphadenopathy. CARDIOVASCULAR: Regular rate and rhythm without murmurs, gallops, or rubs. Remains on IV heparin RESPIRATORY: Breath sounds equal bilaterally. Air entry diminished at the bases GASTROINTESTINAL: Abdomen soft, non-tender, nondistended. MUSCULOSKELETAL: No cyanosis, + edema. Neuro: Sedated, intubated. Wakes up easily understands conversation. Moves extremities purposefully Assessment and Plan - Assessment and Plan Plan: ASSESSMENT: Acute hypoxemic respiratory failure Acute systolic heart failure Severe pulmonary edema Probable pneumonia Sepsis Acute kidney failure Acute pulmonary embolism Obesity hypoventilation syndrome Mild elevated trop Leukocytosis..trending down Elevated AST Morbid obesity Plan Neuro: On Diprivan infusion for sedation, Daily sedation vacation. CT brain: No acute intracranial findings Pulm: Continue with vent support keep sats >92% Bronchodilators, ICU vent bundle. SBT once pulmonary edema is improved CTA chest: Very limited examination due to patient body habitus. Elongated filling defect in the right pulmonary artery suspicious for PE. Moderate-sized area of right lower lobe pulmonary consolidation. Bilateral dependent lower lobe atelectasis. Continue Heparin drip. Monitor PTT per protocol. Broad-spectrum antibiotics with Zosyn, discontinue vancomycin today CV: Monitor HR and BP keep MAP>65mmHg Echo 09/09: Technically difficult study making assessment of left ventricular function and wall motion suboptimal. Grossly, left ventricular function appears severely reduced. probable global hypokinesis. Cards Dr. salazar following : Monitor renal function, I/O's, avoid nephrotoxins Renal function worse with Cr: 5.5 from 4.02 however urine output improved with Bumex drip 2 L in 24 hours Renal is following Dr. Majano, discussed with him. Reduce Bumex drip to 0.5 mg/hr. no acute indication for dialysis at this time US abdomen: No masses or hydronephrosis, enlarged liver likely due to fatty infiltration. GI: On Pepcid for GI prophylaxis, change tube feeds Nepro with goal rate 50ml/ hr. ID: Continue abx (continue Zosyn, discontinue vancomycin today 09/11/2018) monitor for signs of infections ( fever, WBC) Strep pneumonia and Legionella urinary Ag negative 09/09 Blood, sputum and urine cx: All negative to date Heme: Monitor CBC, coags- on Heparin drip. Endo: SSI with accuchecks for glycemic control DVT GI prophylaxis -SCDs -Heparin drip -Pepcid 35 minutes of critical care Patient is severely ill critical with multiorgan failure. She has multiple organs involved now with respiratory failure heart failure renal failure and sepsis. Prognosis is guarded at this time
[2018-09-11] MEDS: Chlorhexidine 0.12% Oral Kit 15 ML UDC OROPHARYNG SCH ×2 (08:05→20:23)
[2018-09-11] MEDS: Famotidine PF Inj 20 MG/2 ML Vial IV.PUSH SCH ×2 (08:05→20:23)
[2018-09-11] MEDS: Senna/Docusate Sodium 8.6/50 MG Tablet PO SCH ×2 (08:05→20:23)
[2018-09-11] MEDS ORDERED: Potassium Chloride 25 MEQ Effervescent Tablet PO ONE (09:15)
--- NOTE | 2018-09-11 09:25 | XR ---
EXAM DATE: 09/11/2018 8:36 AM EST AGE/SEX: 47 years / Female INDICATIONS: Shortness of breath. CLINICAL DATA: This is the patient's subsequent encounter. Patient reports that signs and symptoms h ave been present for 2 days and indicates a pain score of Nonresponsive. MEDICAL/SURGICAL HISTORY: Non-responsive. Non-responsive. COMPARISON: C, CHEST 1V SINGLE AP, 09/08/2018. . FINDINGS: ET tube and nasogastric tube are in good position. The heart is enlarged. Mild/moderate interstitial edema is present. Patchy airspace disease is seen laterally in the right lung and and left lower lobe . The portion of the bony skeleton visualized is unremarkable. CONCLUSION: Minimal improvement with better aeration Support apparatus in good position. Electronically signed by: Paramjit Guillen MD 09/11/2018 9:24 AM EST
--- NOTE | 2018-09-11 10:56 | P.CONPAL ---
Consult Service: Palliative Care Requesting Physician: Kerry Grimaldo Reason for Consult: a. To assist with evaluation and management of symptoms including: dyspnea, pain. b. To assist medical decision maker(s) with: better understanding of current medical conditions; weighing benefits/burdens of medical treatment options; making medical treatment decisions. Primary Care Provider: UNKNOWN History of Present Illness History of Present Illness: Ms. Hadley is a 47 year old female with past medical history of congestive heart failure, obesity, COPD, diabetes, peripheral neuropathy, depression, anxiety, hyperlipidemia and hypertension. Patient presented to [facility] emergency department via EMS after she developed respiratory distress. Upon EMS arrival patient was found in severe respiratory distress, tachycardic rate 170s and was irregularly irregular. She was placed on BiPAP. Her respirations became agonal and she started to lose consciousness. Patient arrived to the ED with GCS 3, being bagged by BVM. She was intubated and placed on mech vent. Additional findings included: * WBC 15.4, hemoglobin 12.9, hematocrit 41.3, platelet count 348, neutrophil 84.9% * Sodium 143, potassium 4.0, chloride 104, carbon dioxide 26.7, anion gap 12, BUN 21, creatinine 2.05, GFR 21, glucose 320 * Total bilirubin 0.4, AST 162, ALT 116, alkaline phosphatase 182 * Ammonia 77 * Troponin 0 0.22, 0.33 sequentially * Total protein 7.7, albumin 3.2 * PT 10.7, INR 1.1, APTT 29.6 * Urinalysis positive protein, negative leukocyte esterase, bacteria rare, culture negative. * Nasal MRSA detected * Toxicology screen: + cocaine, otherwise negative. * Hepatitis A, B and C - nonreactive * EKG-atrial flutter/tachycardia with rapid ventricular response, left anterior fascicular block * Chest [id number] enlarged cardiac silhouette, ETT and NG tube in place * Abdominal ultrasound-enlarged echogenic liver suggesting fatty infiltration, gallbladder not visualized. * Chest CTA-very limited exam secondary to body habitus, elongated filling defect in the right pulmonary artery suspicious for pulmonary embolus, prominent artifact related to body habitus seen throughout the central pulmonary arteries limiting evaluation, segmental and subsegmental branches cannot be effectively evaluated on this study, moderate diffuse cardiomegaly, moderate sized area of right lower lobe pulmonary consolidation, bilateral dependent lower lobe atelectasis. * Echocardiogram-technically exceedingly difficult study making assessment of left ventricular function and wall motion and suboptimal, grossly left ventricular function appears severely reduced, regional wall motion cannot be adequately assessed, probable global hypokinesis, possible mild left ventricular enlargement. * Venous Doppler ultrasound bilateral lower extremity-negative exam with no evidence of DVT. * CT head-no acute intracranial findings. Patient was admitted to ICU with hypercarbic respiratory failure, pulmonary embolism, CHF, atrial flutter, acute kidney injury. Patient was not a candidate for TPA given hemodynamically instability. Nephrology, Dr. Majano was consulted. Renal function continues to worsen, creatinine has increased from 4.02-5.46 in the past 24 hours. Cardiology, Dr. Law was consulted for elevated troponin, thought to be secondary to acute renal failure. Recommendation to continue medical management. Patient remains critically ill in ICU with multiorgan failure (respiratory failure, heart failure, renal failure). Palliative care was consulted to assist with further clarification of goals of medical treatment. Function/Cognitive Trajectory: Unknown. Review of Systems unobtainable due to endotracheal tube, unobtainable due to mental condition PMFSH - History History Provided By: Medical Record - Medical History Medical History: Medical History (Last Updated 09/12/18 @ 14:28 by Marcella Robbins) Anxiety COPD (chronic obstructive pulmonary disease) Chronic pain Congestive heart failure Depression Diabetes History of MRSA infection Onset Date: ~09/09/18 History of cervical cancer Hyperlipemia Hypertension Hypothyroidism Morbid obesity with BMI of 60.0-69.9, adult Obstructive sleep apnea Peripheral neuropathy - Surgical History Surgical History: Surgical History (Last Updated 09/11/18 @ 15:23 by Marcella Robbins) History of laparoscopic cholecystectomy History of partial hysterectomy Previous section - Family History Family History: Family History (Last Updated 09/12/18 @ 14:24 by Marcella Robbins) Brother Heart disease - Social History I have reviewed the patient's Social History: Yes - Tobacco History Smoking Status: Current every day smoker Packs Per Day: 0.5 - Alcohol History How Often Do You Have a Drink Containing Alcohol: Monthly or less - Substance Use History Substance History: Active Abuse Medications and Allergies Active Medications: Active Medications Acetaminophen (Tylenol) 650 mg PO Q6H PRN PRN Reason: PAIN 1-10 AND/OR FEVER >101F Al Hydroxide/Mg Hydroxide (Milk Of Maria Eugenia Yancey) 30 ml PO Q12H PRN PRN Reason: Mild Constipation Albuterol (Duoneb Neb (Prn)) 1 ampul NEB Q2HR NEB PRN PRN Reason: WHEEZING Albuterol (Duoneb Neb (Marshall)) 1 ampul NEB Q4HR NEB [facility] Last Admin: 09/11/18 09:05 Dose: 1 ampul Bisacodyl (Dulcolax Supp) 10 mg RECTAL DAILY PRN PRN Reason: SEVERE CONSITIPATION Chlorhexidine Gluconate (Chlorhexidine 2% Cloth) 3 pack TOPICAL DAILY@0400 [facility] Stop: 09/14/18 03:59 Last Admin: 09/11/18 04:17 Dose: 3 pack Chlorhexidine Gluconate (Chlorhexidine 2% Cloth) 3 pack TOPICAL DAILY@0400 PRN PRN Reason: Extra cloth needed Stop: 09/14/18 03:59 Chlorhexidine Gluconate (Peridex 0.12% Oral Kit) 15 ml OROPHARYNG BID@0800, 2000 [facility] Last Admin: 09/11/18 08:05 Dose: 15 ml Dextrose (D50w Vial) 50 ml IV.PUSH UNSCH PRN PRN Reason: PER HYPOGLYCEMIA PROTOCOL Famotidine (Pepcid Pf Inj) 10 mg IV.PUSH Q12HR [facility] Last Admin: 09/11/18 08:05 Dose: 10 mg Glucagon (Glucagon Inj) 1 mg OTHER PRN PRN PRN Reason: for Hypoglycemia Protocol Propofol (Diprivan 1000 Mg/100 Ml Inj) 1,000 mg in 100 mls @ 6.804 mls/hr IV.CONT TITRATE PRN; Protocol PRN Reason: Per Protocol Last Admin: 09/11/18 09:42 Dose: 40 mcg/kg/min, 54.43 mls/hr Diltiazem HCl 125 mg/ Sodium (Chloride) 125 mls @ 5 mls/hr IV.CONT TITRATE PRN ; Protocol PRN Reason: Per Protocol Last Titration: 09/09/18 13:00 Dose: 0 mg/hr, 0 mls/hr Heparin Sodium/Dextrose (Heparin/D5w 25,000 U/250 Ml) 25,000 unit in 250 mls @ 0 mls/hr IV.CONT TITRATE PRN; Protocol PRN Reason: Per Protocol Last Titration: 09/11/18 05:06 Dose: 1,300 units/hr, 13 mls/hr Piperacillin/Tazobactam/Dextrose (Zosyn 2.25 Gm Premix) 50 mls @ 100 mls/hr IV.SIG Q6H [facility] Last Admin: 09/11/18 09:42 Dose: 100 mls/hr Bumetanide (Bumex Inj) 25 mg in 100 mls @ 2 mls/hr IV.CONT .Q24H [facility] Insulin Human Regular (Novolin R Correctional Sugar Inj) 0 units SQ Q4HR [facility]; Protocol Last Admin: 09/11/18 08:05 Dose: Not Given Lactulose (Lactulose Liq) 30 ml PO DAILY PRN PRN Reason: SEVERE CONSITIPATION Lactulose (Lactulose Liq) 30 ml PO BID [facility] Last Admin: 09/11/18 08:05 Dose: 30 ml Midazolam HCl (Versed Inj) 2 mg IV.PUSH Q1H PRN PRN Reason: SEDATION Miscellaneous Medication () 1 each OROPHARYNG 0000,0400,1200,1600 [facility] Last Admin: 09/11/18 04:17 Dose: 1 each Morphine Sulfate (Morphine Inj) 2 mg IV.PUSH Q2H PRN PRN Reason: PAIN SCALE 6 TO 10 Ondansetron HCl (Zofran Inj) 4 mg IV.PUSH Q6H PRN PRN Reason: NAUSEA OR VOMITING Senna/Docusate Sodium (Nereida-Colace) 1 tab PO BID [facility] Last Admin: 09/11/18 08:05 Dose: 1 tab Sennosides (Senokot) 17.2 mg PO Q12H PRN PRN Reason: Moderate Constipation Sodium Chloride (Ns Flush) 2 ml IV.FLUSH BID [facility] Last Admin: 09/11/18 08:05 Dose: 2 ml Sodium Chloride (Ns Flush) 2 ml IV.FLUSH PRN PRN PRN Reason: FLUSH AFTER USING IV ACCESS Allergies Allergy/AdvReac Type Severity Reaction Status Date / Time No Allergy Information Allergy Unverified 09/08/18 22:46 Available Home Medications Medication Instructions Recorded Confirmed Type allopurinol 100 mg PO DAILY 09/11/18 09/11/18 History cyclobenzaprine 5 mg PO TID 09/11/18 09/11/18 History furosemide 40 mg PO DAILY 09/11/18 09/11/18 History hydralazine 50 mg PO Q8HR 09/11/18 09/11/18 History insulin detemir U-100 [Levemir 24 unit SUBCUT Q12HR 09/11/18 09/11/18 History U-100 Insulin] insulin regular human [Novolin R 1 sliding scale dose SUBCUT UD 09/11/18 History Regular U-100 Insuln] levothyroxine 50 mcg PO DAILY 09/11/18 09/11/18 History meloxicam DAILY 09/11/18 History potassium chloride 20 meq PO DAILY 09/11/18 09/11/18 History pravastatin 40 mg PO HS 09/11/18 09/11/18 History pregabalin [Lyrica] 50 mg PO BID 09/11/18 09/11/18 History sertraline 50 mg PO HS 09/11/18 09/11/18 History tramadol 50 mg PO Q6H PRN 09/11/18 09/11/18 History Advance Directives Living Will: No Healthcare Surrogate: No Power of Mine Wedge Sawyer: No Documented care wishes: No written advance directives on file. Today's verbally stated goals: Patient asleep during my visit, did not arouse to my voice or exam. Family/friends goals: Family meeting arranged 09/12/18 around 10:30am. Ethical and Legal Issues: No known written advance directives. Patient is not capacitated to make her own health care decisions at this time. According to [place] Statutes, health care proxy decision making falls to her spouse, Chelsea Boles. Physical Exam Vital Signs: Vital Signs - 24 hr 09/10/18 11:35 09/10/18 12:00 09/10/18 13:37 Temperature 99.3 F Pulse Rate 102 H 101 H Respiratory Rate 24 22 25 H Blood Pressure 119/73 Pulse Oximetry 98 97 09/10/18 14:00 09/10/18 15:25 09/10/18 16:00 Temperature 99.8 F H Pulse Rate 112 H 98 H 95 H Respiratory Rate 20 22 Blood Pressure 90/51 L Pulse Oximetry 100 99 09/10/18 16:30 09/10/18 17:00 09/10/18 17:04 Temperature Pulse Rate 93 H 94 H Respiratory Rate 20 Blood Pressure 95/58 L 98/59 L Pulse Oximetry 99 99 99 09/10/18 17:32 09/10/18 18:00 09/10/18 18:30 Temperature Pulse Rate 107 H 93 H 91 H Respiratory Rate Blood Pressure 133/62 103/63 104/66 Pulse Oximetry 99 99 99 09/10/18 19:00 09/10/18 19:30 09/10/18 19:45 Temperature Pulse Rate 90 88 Respiratory Rate 20 Blood Pressure 108/66 109/66 Pulse Oximetry 100 100 100 09/10/18 19:59 09/10/18 20:00 09/10/18 20:30 Temperature 99.8 F H Pulse Rate 88 88 87 Respiratory Rate 20 20 Blood Pressure 112/69 113/69 Pulse Oximetry 100 100 09/10/18 21:00 09/10/18 21:30 09/10/18 22:00 Temperature Pulse Rate 87 86 86 Respiratory Rate Blood Pressure 116/70 115/67 117/73 Pulse Oximetry 100 100 100 09/10/18 22:10 09/10/18 22:30 09/10/18 23:00 Temperature Pulse Rate 84 83 Respiratory Rate 20 Blood Pressure 115/67 117/71 Pulse Oximetry 100 100 100 09/10/18 23:30 09/10/18 23:53 09/11/18 00:00 Temperature Pulse Rate 83 82 84 Respiratory Rate 20 Blood Pressure 111/65 117/76 Pulse Oximetry 100 100 09/11/18 00:30 09/11/18 01:00 09/11/18 01:25 Temperature Pulse Rate 83 82 Respiratory Rate 20 Blood Pressure 119/71 121/70 Pulse Oximetry 99 99 99 09/11/18 01:30 09/11/18 02:00 09/11/18 02:30 Temperature Pulse Rate 81 81 80 Respiratory Rate Blood Pressure 121/76 121/76 119/75 Pulse Oximetry 99 100 100 09/11/18 03:00 09/11/18 03:30 09/11/18 04:00 Temperature 98 F Pulse Rate 79 78 78 Respiratory Rate Blood Pressure 123/77 120/74 117/87 Pulse Oximetry 100 99 100 09/11/18 04:20 09/11/18 04:21 09/11/18 04:30 Temperature Pulse Rate 77 76 Respiratory Rate 20 20 Blood Pressure 114/74 Pulse Oximetry 100 100 09/11/18 05:00 09/11/18 06:00 09/11/18 07:00 Temperature Pulse Rate 77 77 79 Respiratory Rate 20 Blood Pressure 110/75 Pulse Oximetry 99 09/11/18 08:00 Temperature Pulse Rate Respiratory Rate 20 Blood Pressure Pulse Oximetry 100 I&O: Intake & Output 09/09/18 09/10/18 09/11/18 09/12/18 06:59 06:59 06:59 06:59 Intake Total 100 / 100 2884 / 2884 1775 / 1775 100 / 100 Output Total 200 / 200 400 / 400 1925 / 1925 Balance -100 / -100 2484 / 2484 -150 / -150 100 / 100 Weight 173.6 kg 176.1 kg 163.8 kg Physical Exam: CONSTITUTIONAL/GENERAL: This is an overweight female, on mech vent. TUBES/LINES/DRAINS: ETT, OG, right subclavian central line, PIV, bilateral soft wrist restraints, Edwards. Bariatric bed. SKIN: No jaundice, rashes, or lesions. Ecchymoses on upper extremities. No wounds seen anteriorly. Skin temperature appropriate. Not diaphoretic. HEAD: Atraumatic. Normocephalic. EYES: Eyes closed, asleep. ENT: Asleep, unable to assess hearing. Nose without bleeding or purulent drainage. Throat difficult to visualize secondary to tubes. NECK: Trachea midline. CARDIOVASCULAR: Distant heart sounds. Regular rate and rhythm without murmurs. No JVD. RESPIRATORY/CHEST: Symmetric, unlabored respirations on vent. Diminished breath sounds. Scattered rhonchi. GASTROINTESTINAL: Abdomen protuberant, soft, nondistended. No guarding. Bowel sounds present. Tolerating tube feeding. GENITOURINARY: Without palpable bladder distension. Edwards catheter in place. MUSCULOSKELETAL: Extremities with edema. LYMPHATICS: Not examined. NEUROLOGICAL: Asleep. PSYCHIATRIC: Asleep. Diagnostic Tests Laboratory: Laboratory Results - last 72 hr 09/09/18 09/09/18 09/09/18 00:30 00:33 00:33 WBC 15.4 H RBC 4.85 Hgb 12.9 Hct 41.3 MCV 85.2 MCH 26.5 L MCHC 31.1 L RDW 17.6 H Plt Count 348 MPV 8.0 Neut % (Auto) 84.9 H Lymph % (Auto) 12.3 Long % (Auto) 2.1 Eos % (Auto) 0.4 Baso % (Auto) 0.3 Neut # (Auto) 13.1 H Lymph # (Auto) 1.9 Long # (Auto) 0.3 Eos # (Auto) 0.1 Baso # (Auto) 0.0 WBC Differential . Differential Comment Auto diff final PT 10.7 INR 1.1 APTT Puncture Site Patient Temperature O2 Saturation ABG pH ABG pCO2 ABG pO2 ABG HCO3 ABG O2 Content ABG Base Excess ABG Methemoglobin Gabe Test Hemoglobin Carboxyhemoglobin O2 Delivery Device Vent Setting Inspired O2 Critical Value Sodium Potassium Chloride Carbon Dioxide Anion Gap BUN Creatinine Estimated GFR POC Glucose Random Glucose Calcium Phosphorus Magnesium Total Bilirubin AST ALT Alkaline Phosphatase Ammonia Troponin I Total Protein Albumin Urine Color Urine Clarity Urine pH Ur Specific [place] Urine Protein Urine Glucose (UA) Urine Ketones Urine Occult Blood Urine Nitrate Urine Bilirubin Urine Urobilinogen Ur Leukocyte Esterase Urine RBC Urine WBC Ur Squamous Epith Cells Urine Bacteria Micro UA Comment Ur Microscopic Review Urine Culture Comments Nasal Screen MRSA (PCR) Random Vancomycin Urine Opiates Screen Ur Barbiturates Screen Ur Amphetamines Screen U Benzodiazepines Scrn Urine Cocaine Screen U Cannabinoids Screen Hepatitis A IgM Ab Hep Bs Antigen Hep B Core IgM Ab Hep C IgG Ab Blood Type AB Positive Antibody Screen Negative 09/09/18 09/09/18 09/09/18 00:33 00:33 00:37 WBC RBC Hgb Hct MCV MCH MCHC RDW Plt Count MPV Neut % (Auto) Lymph % (Auto) Long % (Auto) Eos % (Auto) Baso % (Auto) Neut # (Auto) Lymph # (Auto) Long # (Auto) Eos # (Auto) Baso # (Auto) WBC Differential Differential Comment PT INR APTT Puncture Site Patient Temperature O2 Saturation ABG pH ABG pCO2 ABG pO2 ABG HCO3 ABG O2 Content ABG Base Excess ABG Methemoglobin Gabe Test Hemoglobin Carboxyhemoglobin O2 Delivery Device Vent Setting Inspired O2 Critical Value Sodium 143 Potassium 4.0 Chloride 104 Carbon Dioxide 26.7 Anion Gap 12 BUN 21 H Creatinine 2.05 H Estimated GFR 21 L POC Glucose Random Glucose 320 H Calcium 7.5 L Phosphorus Magnesium 2.0 Total Bilirubin 0.4 AST 162 H ALT 116 H Alkaline Phosphatase 182 H Ammonia 77 H Troponin I 0.22 H Total Protein 7.7 Albumin 3.2 L Urine Color Urine Clarity Urine pH Ur Specific [place] Urine Protein Urine Glucose (UA) Urine Ketones Urine Occult Blood Urine Nitrate Urine Bilirubin Urine Urobilinogen Ur Leukocyte Esterase Urine RBC Urine WBC Ur Squamous Epith Cells Urine Bacteria Micro UA Comment Ur Microscopic Review Urine Culture Comments Nasal Screen MRSA (PCR) Random Vancomycin Urine Opiates Screen Neg Ur Barbiturates Screen Neg Ur Amphetamines Screen Neg U Benzodiazepines Scrn Neg Urine Cocaine Screen Pos H U Cannabinoids Screen Neg Hepatitis A IgM Ab Hep Bs Antigen Hep B Core IgM Ab Hep C IgG Ab Blood Type Antibody Screen 09/09/18 09/09/18 09/09/18 00:37 01:30 02:00 WBC RBC Hgb Hct MCV MCH MCHC RDW Plt Count MPV Neut % (Auto) Lymph % (Auto) Long % (Auto) Eos % (Auto) Baso % (Auto) Neut # (Auto) Lymph # (Auto) Long # (Auto) Eos # (Auto) Baso # (Auto) WBC Differential Differential Comment PT INR APTT Puncture Site Left radial Patient Temperature 98.6 O2 Saturation 97 ABG pH 7.33 L ABG pCO2 44 H ABG pO2 271 H ABG HCO3 23 ABG O2 Content 16.7 ABG Base Excess -2.6 L ABG Methemoglobin 1.7 Gabe Test Present Hemoglobin 11.8 L Carboxyhemoglobin 0.8 O2 Delivery Device Ventilator Vent Setting [id number] Inspired O2 100 Critical Value No Sodium Potassium Chloride Carbon Dioxide Anion Gap BUN Creatinine Estimated GFR POC Glucose Random Glucose Calcium Phosphorus Magnesium Total Bilirubin AST ALT Alkaline Phosphatase Ammonia Troponin I Total Protein Albumin Urine Color Yellow Urine Clarity Clear Urine pH 5.0 Ur Specific [place] 1.016 Urine Protein 100 H Urine Glucose (UA) Negative Urine Ketones Negative Urine Occult Blood Negative Urine Nitrate Negative Urine Bilirubin Negative Urine Urobilinogen Less than 2 Ur Leukocyte Esterase Negative Urine RBC 1 Urine WBC 1 Ur Squamous Epith Cells 1 Urine Bacteria Rare H Micro UA Comment Cath-culture ind Ur Microscopic Review Not Reportable Urine Culture Comments Cath-cult indicated Nasal Screen MRSA (PCR) Mrsa detected Random Vancomycin Urine Opiates Screen Ur Barbiturates Screen Ur Amphetamines Screen U Benzodiazepines Scrn Urine Cocaine Screen U Cannabinoids Screen Hepatitis A IgM Ab Hep Bs Antigen Hep B Core IgM Ab Hep C IgG Ab Blood Type Antibody Screen 09/09/18 09/09/18 09/09/18 03:50 06:20 08:52 WBC RBC Hgb Hct MCV MCH MCHC RDW Plt Count MPV Neut % (Auto) Lymph % (Auto) Long % (Auto) Eos % (Auto) Baso % (Auto) Neut # (Auto) Lymph # (Auto) Long # (Auto) Eos # (Auto) Baso # (Auto) WBC Differential Differential Comment PT INR APTT 29.6 Puncture Site Right radial Patient Temperature 98.6 O2 Saturation 93 ABG pH 7.55 H* ABG pCO2 28 L ABG pO2 65 ABG HCO3 24 ABG O2 Content 15.3 ABG Base Excess 1.8 ABG Methemoglobin 1.5 Gabe Test Present Hemoglobin 11.8 L Carboxyhemoglobin 1.2 O2 Delivery Device Ventilator Vent Setting Inspired O2 40 Critical Value Yes Sodium Potassium Chloride Carbon Dioxide Anion Gap BUN Creatinine Estimated GFR POC Glucose Random Glucose Calcium Phosphorus Magnesium Total Bilirubin AST ALT Alkaline Phosphatase Ammonia Troponin I 0.33 H D Total Protein Albumin Urine Color Urine Clarity Urine pH Ur Specific [place] Urine Protein Urine Glucose (UA) Urine Ketones Urine Occult Blood Urine Nitrate Urine Bilirubin Urine Urobilinogen Ur Leukocyte Esterase Urine RBC Urine WBC Ur Squamous Epith Cells Urine Bacteria Micro UA Comment Ur Microscopic Review Urine Culture Comments Nasal Screen MRSA (PCR) Random Vancomycin Urine Opiates Screen Ur Barbiturates Screen Ur Amphetamines Screen U Benzodiazepines Scrn Urine Cocaine Screen U Cannabinoids Screen Hepatitis A IgM Ab Hep Bs Antigen Hep B Core IgM Ab Hep C IgG Ab Blood Type Antibody Screen 09/09/18 09/09/18 09/09/18 09:20 09:20 10:35 WBC 7.3 D RBC 4.41 Hgb 11.6 Hct 37.0 MCV 83.9 MCH 26.3 L MCHC 31.4 L RDW 17.3 H Plt Count 264 MPV 8.1 Neut % (Auto) 81.0 H Lymph % (Auto) 12.8 Long % (Auto) 5.7 Eos % (Auto) 0.2 Baso % (Auto) 0.3 Neut # (Auto) 5.9 Lymph # (Auto) 0.9 L Long # (Auto) 0.4 Eos # (Auto) 0.0 Baso # (Auto) 0.0 WBC Differential . Differential Comment Auto diff final PT INR APTT Puncture Site Patient Temperature O2 Saturation ABG pH ABG pCO2 ABG pO2 ABG HCO3 ABG O2 Content ABG Base Excess ABG Methemoglobin Gabe Test Hemoglobin Carboxyhemoglobin O2 Delivery Device Vent Setting Inspired O2 Critical Value Sodium 144 Potassium 3.1 L D Chloride 105 Carbon Dioxide 27.2 Anion Gap 12 BUN 29 H Creatinine 2.60 H Estimated GFR 20 L POC Glucose Random Glucose 166 H D Calcium 7.7 L Phosphorus 2.8 Magnesium 1.7 Total Bilirubin 0.4 AST 128 H ALT 95 H Alkaline Phosphatase 137 H Ammonia Troponin I Total Protein 6.6 D Albumin 2.7 L Urine Color Urine Clarity Urine pH Ur Specific [place] Urine Protein Urine Glucose (UA) Urine Ketones Urine Occult Blood Urine Nitrate Urine Bilirubin Urine Urobilinogen Ur Leukocyte Esterase Urine RBC Urine WBC Ur Squamous Epith Cells Urine Bacteria Micro UA Comment Ur Microscopic Review Urine Culture Comments Nasal Screen MRSA (PCR) Random Vancomycin Urine Opiates Screen Ur Barbiturates Screen Ur Amphetamines Screen U Benzodiazepines Scrn Urine Cocaine Screen U Cannabinoids Screen Hepatitis A IgM Ab Nonreactive Hep Bs Antigen Nonreactive Hep B Core IgM Ab Nonreactive Hep C IgG Ab Nonreactive Blood Type Antibody Screen 09/09/18 09/09/18 09/09/18 11:50 12:08 12:08 WBC RBC Hgb Hct MCV MCH MCHC RDW Plt Count MPV Neut % (Auto) Lymph % (Auto) Long % (Auto) Eos % (Auto) Baso % (Auto) Neut # (Auto) Lymph # (Auto) Long # (Auto) Eos # (Auto) Baso # (Auto) WBC Differential Differential Comment PT INR APTT Puncture Site Patient Temperature O2 Saturation ABG pH ABG pCO2 ABG pO2 ABG HCO3 ABG O2 Content ABG Base Excess ABG Methemoglobin Gabe Test Hemoglobin Carboxyhemoglobin O2 Delivery Device Vent Setting Inspired O2 Critical Value Sodium Potassium Chloride Carbon Dioxide Anion Gap BUN Creatinine Estimated GFR POC Glucose 155 H Random Glucose Calcium Phosphorus Magnesium Total Bilirubin AST ALT Alkaline Phosphatase Ammonia Troponin I Cancelled 0.38 H Total Protein Albumin Urine Color Urine Clarity Urine pH Ur Specific [place] Urine Protein Urine Glucose (UA) Urine Ketones Urine Occult Blood Urine Nitrate Urine Bilirubin Urine Urobilinogen Ur Leukocyte Esterase Urine RBC Urine WBC Ur Squamous Epith Cells Urine Bacteria Micro UA Comment Ur Microscopic Review Urine Culture Comments Nasal Screen MRSA (PCR) Random Vancomycin Urine Opiates Screen Ur Barbiturates Screen Ur Amphetamines Screen U Benzodiazepines Scrn Urine Cocaine Screen U Cannabinoids Screen Hepatitis A IgM Ab Hep Bs Antigen Hep B Core IgM Ab Hep C IgG Ab Blood Type Antibody Screen 09/09/18 09/09/18 09/09/18 12:44 14:55 15:20 WBC RBC Hgb Hct MCV MCH MCHC RDW Plt Count MPV Neut % (Auto) Lymph % (Auto) Long % (Auto) Eos % (Auto) Baso % (Auto) Neut # (Auto) Lymph # (Auto) Long # (Auto) Eos # (Auto) Baso # (Auto) WBC Differential Differential Comment PT INR APTT 185.1 H* D 90.6 H* D Puncture Site Patient Temperature O2 Saturation ABG pH ABG pCO2 ABG pO2 ABG HCO3 ABG O2 Content ABG Base Excess ABG Methemoglobin Gabe Test Hemoglobin Carboxyhemoglobin O2 Delivery Device Vent Setting Inspired O2 Critical Value Sodium Potassium Chloride Carbon Dioxide Anion Gap BUN Creatinine Estimated GFR POC Glucose 111 H Random Glucose Calcium Phosphorus Magnesium Total Bilirubin AST ALT Alkaline Phosphatase Ammonia Troponin I Total Protein Albumin Urine Color Urine Clarity Urine pH Ur Specific [place] Urine Protein Urine Glucose (UA) Urine Ketones Urine Occult Blood Urine Nitrate Urine Bilirubin Urine Urobilinogen Ur Leukocyte Esterase Urine RBC Urine WBC Ur Squamous Epith Cells Urine Bacteria Micro UA Comment Ur Microscopic Review Urine Culture Comments Nasal Screen MRSA (PCR) Random Vancomycin Urine Opiates Screen Ur Barbiturates Screen Ur Amphetamines Screen U Benzodiazepines Scrn Urine Cocaine Screen U Cannabinoids Screen Hepatitis A IgM Ab Hep Bs Antigen Hep B Core IgM Ab Hep C IgG Ab Blood Type Antibody Screen 09/09/18 09/09/18 09/09/18 20:11 22:20 23:51 WBC RBC Hgb Hct MCV MCH MCHC RDW Plt Count MPV Neut % (Auto) Lymph % (Auto) Long % (Auto) Eos % (Auto) Baso % (Auto) Neut # (Auto) Lymph # (Auto) Long # (Auto) Eos # (Auto) Baso # (Auto) WBC Differential Differential Comment PT INR APTT 91.6 H* Puncture Site Left radial Patient Temperature 98.6 O2 Saturation 89 L* ABG pH 6.97 L* ABG pCO2 101 H* ABG pO2 91 ABG HCO3 22 ABG O2 Content 15.9 ABG Base Excess -8.2 L ABG Methemoglobin 0.6 Gabe Test Present Hemoglobin 12.6 Carboxyhemoglobin 0.3 O2 Delivery Device Vent Vent Setting See comments Inspired O2 100 Critical Value Yes Sodium Potassium Chloride Carbon Dioxide Anion Gap BUN Creatinine Estimated GFR POC Glucose 141 H Random Glucose Calcium Phosphorus Magnesium Total Bilirubin AST ALT Alkaline Phosphatase Ammonia Troponin I Total Protein Albumin Urine Color Urine Clarity Urine pH Ur Specific [place] Urine Protein Urine Glucose (UA) Urine Ketones Urine Occult Blood Urine Nitrate Urine Bilirubin Urine Urobilinogen Ur Leukocyte Esterase Urine RBC Urine WBC Ur Squamous Epith Cells Urine Bacteria Micro UA Comment Ur Microscopic Review Urine Culture Comments Nasal Screen MRSA (PCR) Random Vancomycin Urine Opiates Screen Ur Barbiturates Screen Ur Amphetamines Screen U Benzodiazepines Scrn Urine Cocaine Screen U Cannabinoids Screen Hepatitis A IgM Ab Hep Bs Antigen Hep B Core IgM Ab Hep C IgG Ab Blood Type Antibody Screen 09/10/18 09/10/18 09/10/18 00:14 01:00 04:05 WBC 6.3 RBC 4.34 Hgb 11.5 L Hct 35.3 MCV 81.4 MCH 26.4 L MCHC 32.4 RDW 17.8 H Plt Count 265 MPV 8.3 Neut % (Auto) 49.2 Lymph % (Auto) 36.4 Long % (Auto) 10.3 H Eos % (Auto) 3.5 Baso % (Auto) 0.6 Neut # (Auto) 3.1 Lymph # (Auto) 2.3 Long # (Auto) 0.6 Eos # (Auto) 0.2 Baso # (Auto) 0.0 WBC Differential . Differential Comment Auto diff final PT INR APTT 67.1 H D Puncture Site Patient Temperature O2 Saturation ABG pH ABG pCO2 ABG pO2 ABG HCO3 ABG O2 Content ABG Base Excess ABG Methemoglobin Gabe Test Hemoglobin Carboxyhemoglobin O2 Delivery Device Vent Setting Inspired O2 Critical Value Sodium Potassium Chloride Carbon Dioxide Anion Gap BUN Creatinine Estimated GFR POC Glucose 122 H Random Glucose Calcium Phosphorus Magnesium Total Bilirubin AST ALT Alkaline Phosphatase Ammonia Troponin I Total Protein Albumin Urine Color Urine Clarity Urine pH Ur Specific [place] Urine Protein Urine Glucose (UA) Urine Ketones Urine Occult Blood Urine Nitrate Urine Bilirubin Urine Urobilinogen Ur Leukocyte Esterase Urine RBC Urine WBC Ur Squamous Epith Cells Urine Bacteria Micro UA Comment Ur Microscopic Review Urine Culture Comments Nasal Screen MRSA (PCR) Random Vancomycin Urine Opiates Screen Ur Barbiturates Screen Ur Amphetamines Screen U Benzodiazepines Scrn Urine Cocaine Screen U Cannabinoids Screen Hepatitis A IgM Ab Hep Bs Antigen Hep B Core IgM Ab Hep C IgG Ab Blood Type Antibody Screen 09/10/18 09/10/18 09/10/18 04:05 04:05 07:29 WBC RBC Hgb Hct MCV MCH MCHC RDW Plt Count MPV Neut % (Auto) Lymph % (Auto) Long % (Auto) Eos % (Auto) Baso % (Auto) Neut # (Auto) Lymph # (Auto) Long # (Auto) Eos # (Auto) Baso # (Auto) WBC Differential Differential Comment PT 10.8 INR 1.1 APTT 65.7 H 57.7 H Puncture Site Patient Temperature O2 Saturation ABG pH ABG pCO2 ABG pO2 ABG HCO3 ABG O2 Content ABG Base Excess ABG Methemoglobin Gabe Test Hemoglobin Carboxyhemoglobin O2 Delivery Device Vent Setting Inspired O2 Critical Value Sodium 144 Potassium 3.4 L Chloride 106 Carbon Dioxide 26.4 Anion Gap 12 BUN 36 H Creatinine 4.02 H Estimated GFR 12 L POC Glucose Random Glucose 137 H Calcium 7.7 L Phosphorus 4.6 D Magnesium 1.7 Total Bilirubin 0.4 AST 104 H ALT 91 H Alkaline Phosphatase 115 Ammonia Troponin I Total Protein 6.7 Albumin 2.5 L Urine Color Urine Clarity Urine pH Ur Specific [place] Urine Protein Urine Glucose (UA) Urine Ketones Urine Occult Blood Urine Nitrate Urine Bilirubin Urine Urobilinogen Ur Leukocyte Esterase Urine RBC Urine WBC Ur Squamous Epith Cells Urine Bacteria Micro UA Comment Ur Microscopic Review Urine Culture Comments Nasal Screen MRSA (PCR) Random Vancomycin 32.2 Urine Opiates Screen Ur Barbiturates Screen Ur Amphetamines Screen U Benzodiazepines Scrn Urine Cocaine Screen U Cannabinoids Screen Hepatitis A IgM Ab Hep Bs Antigen Hep B Core IgM Ab Hep C IgG Ab Blood Type Antibody Screen 09/10/18 09/10/18 09/10/18 09:00 09:25 12:55 WBC RBC Hgb Hct MCV MCH MCHC RDW Plt Count MPV Neut % (Auto) Lymph % (Auto) Long % (Auto) Eos % (Auto) Baso % (Auto) Neut # (Auto) Lymph # (Auto) Long # (Auto) Eos # (Auto) Baso # (Auto) WBC Differential Differential Comment PT INR APTT Puncture Site Right radial Patient Temperature 98.6 O2 Saturation 96 ABG pH 7.44 H ABG pCO2 35 L ABG pO2 126 H ABG HCO3 23 ABG O2 Content 14.7 ABG Base Excess -0.3 ABG Methemoglobin 1.8 Gabe Test Present Hemoglobin 10.8 L Carboxyhemoglobin 0.8 O2 Delivery Device Ventilator Vent Setting Inspired O2 40 Critical Value No Sodium Potassium Chloride Carbon Dioxide Anion Gap BUN Creatinine Estimated GFR POC Glucose 166 H 161 H Random Glucose Calcium Phosphorus Magnesium Total Bilirubin AST ALT Alkaline Phosphatase Ammonia Troponin I Total Protein Albumin Urine Color Urine Clarity Urine pH Ur Specific [place] Urine Protein Urine Glucose (UA) Urine Ketones Urine Occult Blood Urine Nitrate Urine Bilirubin Urine Urobilinogen Ur Leukocyte Esterase Urine RBC Urine WBC Ur Squamous Epith Cells Urine Bacteria Micro UA Comment Ur Microscopic Review Urine Culture Comments Nasal Screen MRSA (PCR) Random Vancomycin Urine Opiates Screen Ur Barbiturates Screen Ur Amphetamines Screen U Benzodiazepines Scrn Urine Cocaine Screen U Cannabinoids Screen Hepatitis A IgM Ab Hep Bs Antigen Hep B Core IgM Ab Hep C IgG Ab Blood Type Antibody Screen 09/10/18 09/10/18 09/10/18 15:40 19:43 22:15 WBC RBC Hgb Hct MCV MCH MCHC RDW Plt Count MPV Neut % (Auto) Lymph % (Auto) Long % (Auto) Eos % (Auto) Baso % (Auto) Neut # (Auto) Lymph # (Auto) Long # (Auto) Eos # (Auto) Baso # (Auto) WBC Differential Differential Comment PT INR APTT Puncture Site Patient Temperature O2 Saturation ABG pH ABG pCO2 ABG pO2 ABG HCO3 ABG O2 Content ABG Base Excess ABG Methemoglobin Gabe Test Hemoglobin Carboxyhemoglobin O2 Delivery Device Vent Setting Inspired O2 Critical Value Sodium Potassium 3.5 Chloride Carbon Dioxide Anion Gap BUN Creatinine Estimated GFR POC Glucose 163 H 121 H Random Glucose Calcium Phosphorus Magnesium Total Bilirubin AST ALT Alkaline Phosphatase Ammonia Troponin I Total Protein Albumin Urine Color Urine Clarity Urine pH Ur Specific [place] Urine Protein Urine Glucose (UA) Urine Ketones Urine Occult Blood Urine Nitrate Urine Bilirubin Urine Urobilinogen Ur Leukocyte Esterase Urine RBC Urine WBC Ur Squamous Epith Cells Urine Bacteria Micro UA Comment Ur Microscopic Review Urine Culture Comments Nasal Screen MRSA (PCR) Random Vancomycin Urine Opiates Screen Ur Barbiturates Screen Ur Amphetamines Screen U Benzodiazepines Scrn Urine Cocaine Screen U Cannabinoids Screen Hepatitis A IgM Ab Hep Bs Antigen Hep B Core IgM Ab Hep C IgG Ab Blood Type Antibody Screen 09/11/18 09/11/18 09/11/18 00:14 03:31 03:35 WBC 7.0 RBC 4.04 Hgb 10.5 L Hct 32.9 L MCV 81.5 MCH 26.0 L MCHC 31.8 L RDW 17.0 Plt Count 255 MPV 8.3 Neut % (Auto) Lymph % (Auto) Long % (Auto) Eos % (Auto) Baso % (Auto) Neut # (Auto) Lymph # (Auto) Long # (Auto) Eos # (Auto) Baso # (Auto) WBC Differential Differential Comment PT INR APTT Puncture Site Patient Temperature O2 Saturation ABG pH ABG pCO2 ABG pO2 ABG HCO3 ABG O2 Content ABG Base Excess ABG Methemoglobin Gabe Test Hemoglobin Carboxyhemoglobin O2 Delivery Device Vent Setting Inspired O2 Critical Value Sodium Potassium Chloride Carbon Dioxide Anion Gap BUN Creatinine Estimated GFR POC Glucose 132 H 133 H Random Glucose Calcium Phosphorus Magnesium Total Bilirubin AST ALT Alkaline Phosphatase Ammonia Troponin I Total Protein Albumin Urine Color Urine Clarity Urine pH Ur Specific [place] Urine Protein Urine Glucose (UA) Urine Ketones Urine Occult Blood Urine Nitrate Urine Bilirubin Urine Urobilinogen Ur Leukocyte Esterase Urine RBC Urine WBC Ur Squamous Epith Cells Urine Bacteria Micro UA Comment Ur Microscopic Review Urine Culture Comments Nasal Screen MRSA (PCR) Random Vancomycin Urine Opiates Screen Ur Barbiturates Screen Ur Amphetamines Screen U Benzodiazepines Scrn Urine Cocaine Screen U Cannabinoids Screen Hepatitis A IgM Ab Hep Bs Antigen Hep B Core IgM Ab Hep C IgG Ab Blood Type Antibody Screen 09/11/18 09/11/18 03:35 03:35 WBC RBC Hgb Hct MCV MCH MCHC RDW Plt Count MPV Neut % (Auto) Lymph % (Auto) Long % (Auto) Eos % (Auto) Baso % (Auto) Neut # (Auto) Lymph # (Auto) Long # (Auto) Eos # (Auto) Baso # (Auto) WBC Differential Differential Comment PT INR APTT 56.7 H Puncture Site Patient Temperature O2 Saturation ABG pH ABG pCO2 ABG pO2 ABG HCO3 ABG O2 Content ABG Base Excess ABG Methemoglobin Gabe Test Hemoglobin Carboxyhemoglobin O2 Delivery Device Vent Setting Inspired O2 Critical Value Sodium 144 Potassium 3.3 L Chloride 106 Carbon Dioxide 26.3 Anion Gap 12 BUN 46 H Creatinine 5.46 H Estimated GFR 8 L POC Glucose Random Glucose 123 H Calcium 7.8 L Phosphorus Magnesium Total Bilirubin 0.4 AST 63 H ALT 77 H Alkaline Phosphatase 102 Ammonia Troponin I Total Protein 6.6 Albumin 2.4 L Urine Color Urine Clarity Urine pH Ur Specific [place] Urine Protein Urine Glucose (UA) Urine Ketones Urine Occult Blood Urine Nitrate Urine Bilirubin Urine Urobilinogen Ur Leukocyte Esterase Urine RBC Urine WBC Ur Squamous Epith Cells Urine Bacteria Micro UA Comment Ur Microscopic Review Urine Culture Comments Nasal Screen MRSA (PCR) Random Vancomycin 18.8 Urine Opiates Screen Ur Barbiturates Screen Ur Amphetamines Screen U Benzodiazepines Scrn Urine Cocaine Screen U Cannabinoids Screen Hepatitis A IgM Ab Hep Bs Antigen Hep B Core IgM Ab Hep C IgG Ab Blood Type Antibody Screen Result Diagrams: 09/12/18 04:00 09/12/18 04:00 Microbiology: Microbiology 09/09/18 00:37 Urine Culture - Final Clean Catch Urine No growth in 48 hours 09/09/18 09:15 Gram Stain - Final Sputum - Endotracheal Sputum Culture - Final No growth in 48 hours 09/09/18 00:30 Aerobic Blood Culture - Preliminary Blood - Peripheral No growth in 1 day Anaerobic Blood Culture - Preliminary No growth in 1 day 09/09/18 00:35 Aerobic Blood Culture - Preliminary Blood - Peripheral No growth in 1 day Anaerobic Blood Culture - Preliminary No growth in 1 day 09/09/18 08:30 Streptococcus pneumoniae Antigen (M - Final Urine - Catheterized Urine Presumptive negative for streptococcus pneumoniae antigen, suggesting no current or recent infection. Infection due to Streptococcus pneumoniae cannot be ruled out since the antigen present in the sample may be below the detection limit of the test. 09/09/18 09:15 Legionella Antigen - Final Urine - Catheterized Urine Presumptive negative for Legionella pneumophila serogroup 1 antigen in urine, suggesting no recent or recurrent infection. Infection due to Legionella cannot be ruled out since other serogroups and species may cause disease, antigen may not be present in urine in early infection, and the level of antigen present in the urine may be below the detection limit of the test. Imaging: Abdomen Ultrasound 09/09/18 00:00 CONCLUSION: 1. Enlarged echogenic liver suggesting fatty infiltration 2. , Gallbladder not visualized Chest CTA 09/09/18 00:00 CONCLUSION: 1. Very limited examination due to patient body habitus. 2. Elongated filling defect in the right pulmonary artery suspicious for pulmonary embolus. Prominent artifact related to patient body habitus is seen through out the central pulmonary arteries limiting the evaluation. The segmental and subsegmental branches cannot be effectively evaluated on this study. Nuclear medicine VQ scan could be performed for further evaluation. 3. Moderate diffuse cardiomegaly. 4. Moderate-sized area of right lower lobe pulmonary consolidation. 5. Bilateral dependent lower lobe atelectasis. Head CT 09/09/18 00:00 CONCLUSION: No acute intracranial findings. . Venous Doppler Study 09/09/18 00:00 CONCLUSION: 1. Negative exam with no evidence of deep venous thrombosis. Chest X-Ray 09/11/18 07:28 CONCLUSION: Minimal improvement with better aeration Support apparatus in good position. Procedures: * 09/08/18 - intubated Patient/Family Conference Present at Family Conference: Spoke with spouse via telephone briefly. Family meeting arranged 09/12/18 around 10 or 10:30 AM. Issues Discussed: * Introduced palliative care services. * Family meeting arranged 09/12/18. Assessment and Plan - Disease Oriented Problem List (1) Acute kidney failure (2) Respiratory failure (3) Obesity (4) Pulmonary embolism - Symptom Scale (1) Chronic pain 0-10 Scale: Unable to quantify (2) Dyspnea 0-10 Scale: Unable to quantify Pertinent Non-Medical Issues: Psychosocial: . 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 Has 1 daughter, Avelina. Spiritual: Yazidi valerie. Legal: No known written advance directives. Patient is not capacitated to make her own health care decisions at this time. According to [place] Statutes, health care proxy decision making falls to her spouse. Ethical issues impacting care: No known concerns at this time. Important Contacts: * Chelsea Boles, spouse: [phone] * Avelina Hadley, daughter: [phone] Prognosis: Mrs. Hadley is a 47 year old chronically, critically ill patient with multiple comorbidities now with respiratory, renal and heart failure. Overall prognosis appears poor. Code Status: Full Code Plan: * Decision maker: Patient is not capacitated to make her own health care decisions, uncertain if she will regain capacity. No known written advance directives. According to [place] Statutes, health care proxy decision making falls to her spouse. * FULL CODE * Family meeting arranged for around 10 or 10:30am on 09/12/18. * SYMPTOMS: Pain: asleep during my visit. Pain secondary to tubes, bedbound status, multiorgan failure. Dyspnea:on mech vent. No new medication recommendations at this time. * Palliative care number provided. * Palliative care will continue to follow to assist with symptom management and further clarification of goals of medical treatment as needed. . Appreciation Thank you for the opportunity to participate in the care of Lindsey Hadley. Attestation Attestation: To help prompt me to consider important information that might be impacting today's encounter and assessment, information from prior notes written by myself or my colleagues may have been "brought forward" into today's note. My signature on this note, however, is an attestation that I personally performed the exam, history, and/or decision-making noted today, and, unless otherwise indicated, the interactions with patient, family, and staff as well as the review of records all occurred today. I also attest that the listed assessment and stated plan reflect my best clinical judgment today based on the combination of historical information, prior notes, and today's exam/ interactions. When time spent is documented, it refers only to time spent today by the signer, or if indicated, combined time spent today by collaborating physician/nurse practitioner.
--- NOTE | 2018-09-11 11:37 | P.PNCA ---
Subjective Interval history: Patient is currently intubated and sedated. Appears to be stable on the monitor at this time. Medications and Allergies Allergies Allergy/AdvReac Type Severity Reaction Status Date / Time No Allergy Information Allergy Unverified 09/08/18 22:46 Available Home Medications Medication Instructions Recorded Confirmed Type allopurinol 100 mg PO DAILY 09/11/18 09/11/18 History cyclobenzaprine 5 mg PO TID 09/11/18 09/11/18 History furosemide 40 mg PO DAILY 09/11/18 09/11/18 History hydralazine 50 mg PO Q8HR 09/11/18 09/11/18 History insulin detemir U-100 [Levemir 24 unit SUBCUT Q12HR 09/11/18 09/11/18 History U-100 Insulin] insulin regular human [Novolin R 1 sliding scale dose SUBCUT UD 09/11/18 History Regular U-100 Insuln] levothyroxine 50 mcg PO DAILY 09/11/18 09/11/18 History meloxicam DAILY 09/11/18 History potassium chloride 20 meq PO DAILY 09/11/18 09/11/18 History pravastatin 40 mg PO HS 09/11/18 09/11/18 History pregabalin [Lyrica] 50 mg PO BID 09/11/18 09/11/18 History sertraline 50 mg PO HS 09/11/18 09/11/18 History tramadol 50 mg PO Q6H PRN 09/11/18 09/11/18 History Active Medications: Active Medications Acetaminophen (Tylenol) 650 mg PO Q6H PRN PRN Reason: PAIN 1-10 AND/OR FEVER >101F Al Hydroxide/Mg Hydroxide (Milk Of Magnflavio Liq) 30 ml PO Q12H PRN PRN Reason: Mild Constipation Albuterol (Duoneb Neb (Prn)) 1 ampul NEB Q2HR NEB PRN PRN Reason: WHEEZING Albuterol (Duoneb Neb ([place])) 1 ampul NEB Q4HR NEB [facility] Last Admin: 09/11/18 09:05 Dose: 1 ampul Bisacodyl (Dulcolax Supp) 10 mg RECTAL DAILY PRN PRN Reason: SEVERE CONSITIPATION Chlorhexidine Gluconate (Chlorhexidine 2% Cloth) 3 pack TOPICAL DAILY@0400 [facility] Stop: 09/14/18 03:59 Last Admin: 09/11/18 04:17 Dose: 3 pack Chlorhexidine Gluconate (Chlorhexidine 2% Cloth) 3 pack TOPICAL DAILY@0400 PRN PRN Reason: Extra cloth needed Stop: 09/14/18 03:59 Chlorhexidine Gluconate (Peridex 0.12% Oral Kit) 15 ml OROPHARYNG BID@0800, 2000 [facility] Last Admin: 09/11/18 08:05 Dose: 15 ml Dextrose (D50w Vial) 50 ml IV.PUSH UNSCH PRN PRN Reason: PER HYPOGLYCEMIA PROTOCOL Famotidine (Pepcid Pf Inj) 10 mg IV.PUSH Q12HR [facility] Last Admin: 09/11/18 08:05 Dose: 10 mg Glucagon (Glucagon Inj) 1 mg OTHER PRN PRN PRN Reason: for Hypoglycemia Protocol Propofol (Diprivan 1000 Mg/100 Ml Inj) 1,000 mg in 100 mls @ 6.804 mls/hr IV.CONT TITRATE PRN; Protocol PRN Reason: Per Protocol Last Admin: 09/11/18 09:42 Dose: 40 mcg/kg/min, 54.43 mls/hr Diltiazem HCl 125 mg/ Sodium (Chloride) 125 mls @ 5 mls/hr IV.CONT TITRATE PRN ; Protocol PRN Reason: Per Protocol Last Titration: 09/09/18 13:00 Dose: 0 mg/hr, 0 mls/hr Heparin Sodium/Dextrose (Heparin/D5w 25,000 U/250 Ml) 25,000 unit in 250 mls @ 0 mls/hr IV.CONT TITRATE PRN; Protocol PRN Reason: Per Protocol Last Titration: 09/11/18 05:06 Dose: 1,300 units/hr, 13 mls/hr Piperacillin/Tazobactam/Dextrose (Zosyn 2.25 Gm Premix) 50 mls @ 100 mls/hr IV.SIG Q6H [facility] Last Admin: 09/11/18 09:42 Dose: 100 mls/hr Bumetanide (Bumex Inj) 25 mg in 100 mls @ 2 mls/hr IV.CONT .Q24H [facility] Insulin Human Regular (Novolin R Correctional Sugar Inj) 0 units SQ Q4HR [facility]; Protocol Last Admin: 09/11/18 08:05 Dose: Not Given Lactulose (Lactulose Liq) 30 ml PO DAILY PRN PRN Reason: SEVERE CONSITIPATION Lactulose (Lactulose Liq) 30 ml PO BID [facility] Last Admin: 09/11/18 08:05 Dose: 30 ml Midazolam HCl (Versed Inj) 2 mg IV.PUSH Q1H PRN PRN Reason: SEDATION Miscellaneous Medication () 1 each OROPHARYNG 0000,0400,1200,1600 [facility] Last Admin: 09/11/18 04:17 Dose: 1 each Morphine Sulfate (Morphine Inj) 2 mg IV.PUSH Q2H PRN PRN Reason: PAIN SCALE 6 TO 10 Ondansetron HCl (Zofran Inj) 4 mg IV.PUSH Q6H PRN PRN Reason: NAUSEA OR VOMITING Senna/Docusate Sodium (Nereida-Colace) 1 tab PO BID [facility] Last Admin: 09/11/18 08:05 Dose: 1 tab Sennosides (Senokot) 17.2 mg PO Q12H PRN PRN Reason: Moderate Constipation Sodium Chloride (Ns Flush) 2 ml IV.FLUSH BID [facility] Last Admin: 09/11/18 08:05 Dose: 2 ml Sodium Chloride (Ns Flush) 2 ml IV.FLUSH PRN PRN PRN Reason: FLUSH AFTER USING IV ACCESS Physical Exam Vital signs: Vital Signs 09/10/18 11:35 09/10/18 12:00 09/10/18 13:37 Temperature 99.3 F Pulse Rate 102 H 101 H Respiratory Rate 24 22 25 H Blood Pressure 119/73 Pulse Oximetry 98 97 09/10/18 14:00 09/10/18 15:25 09/10/18 16:00 Temperature 99.8 F H Pulse Rate 112 H 98 H 95 H Respiratory Rate 20 22 Blood Pressure 90/51 L Pulse Oximetry 100 99 09/10/18 16:30 09/10/18 17:00 09/10/18 17:04 Temperature Pulse Rate 93 H 94 H Respiratory Rate 20 Blood Pressure 95/58 L 98/59 L Pulse Oximetry 99 99 99 09/10/18 17:32 09/10/18 18:00 09/10/18 18:30 Temperature Pulse Rate 107 H 93 H 91 H Respiratory Rate Blood Pressure 133/62 103/63 104/66 Pulse Oximetry 99 99 99 09/10/18 19:00 09/10/18 19:30 09/10/18 19:45 Temperature Pulse Rate 90 88 Respiratory Rate 20 Blood Pressure 108/66 109/66 Pulse Oximetry 100 100 100 09/10/18 19:59 09/10/18 20:00 09/10/18 20:30 Temperature 99.8 F H Pulse Rate 88 88 87 Respiratory Rate 20 20 Blood Pressure 112/69 113/69 Pulse Oximetry 100 100 09/10/18 21:00 09/10/18 21:30 09/10/18 22:00 Temperature Pulse Rate 87 86 86 Respiratory Rate Blood Pressure 116/70 115/67 117/73 Pulse Oximetry 100 100 100 09/10/18 22:10 09/10/18 22:30 09/10/18 23:00 Temperature Pulse Rate 84 83 Respiratory Rate 20 Blood Pressure 115/67 117/71 Pulse Oximetry 100 100 100 09/10/18 23:30 09/10/18 23:53 09/11/18 00:00 Temperature Pulse Rate 83 82 84 Respiratory Rate 20 Blood Pressure 111/65 117/76 Pulse Oximetry 100 100 09/11/18 00:30 09/11/18 01:00 09/11/18 01:25 Temperature Pulse Rate 83 82 Respiratory Rate 20 Blood Pressure 119/71 121/70 Pulse Oximetry 99 99 99 09/11/18 01:30 09/11/18 02:00 09/11/18 02:30 Temperature Pulse Rate 81 81 80 Respiratory Rate Blood Pressure 121/76 121/76 119/75 Pulse Oximetry 99 100 100 09/11/18 03:00 09/11/18 03:30 09/11/18 04:00 Temperature 98 F Pulse Rate 79 78 78 Respiratory Rate Blood Pressure 123/77 120/74 117/87 Pulse Oximetry 100 99 100 09/11/18 04:20 09/11/18 04:21 09/11/18 04:30 Temperature Pulse Rate 77 76 Respiratory Rate 20 20 Blood Pressure 114/74 Pulse Oximetry 100 100 09/11/18 05:00 09/11/18 06:00 09/11/18 07:00 Temperature Pulse Rate 77 77 74 Respiratory Rate 20 Blood Pressure 110/75 116/69 Pulse Oximetry 99 100 09/11/18 07:30 09/11/18 08:00 09/11/18 08:30 Temperature Pulse Rate 74 74 75 Respiratory Rate 20 Blood Pressure 106/70 116/78 122/88 Pulse Oximetry 100 100 100 09/11/18 09:00 09/11/18 09:30 09/11/18 10:00 Temperature Pulse Rate 84 83 80 Respiratory Rate Blood Pressure 124/76 112/66 Pulse Oximetry 100 100 100 Intake & Output 09/10/18 09/11/18 09/11/18 18:59 06:59 18:59 Intake Total 895 / 895 880 / 880 100 / 100 Output Total 500 / 500 1425 / 1425 Balance 395 / 395 -545 / -545 100 / 100 Weight 163.8 kg Intake: IV 732 / 732 500 / 500 100 / 100 Heparin/D5W 25,000 U/250 mL 25, 232 / 232 000 unit In 250 ml @ Per Protocol IV.CONT TITRATE PRN Rx #:[id number] Diprivan 1000 mg/100 ml Inj 1, 300 / 300 400 / 400 100 / 100 000 mg In 100 ml @ 5 MCG/KG/MIN 6.804 mls/hr IV.CONT TITRATE PRN Rx#:[id number] Zosyn 2.25 GM Premix 50 ML @ 100 / 100 100 / 100 100 mls/hr IV.SIG Q6H [facility] Rx#: [id number] KCl 20 mEq Premix Inj 20 meq In 100 / 100 100 ml @ 50 mls/hr IV.SIG ONCE ONE Rx#:[id number] Tube Feeding 133 / 133 280 / 280 Water Bolus Amount 30 / 30 100 / 100 Output: Urine Amount (Catheter) 500 / 500 1425 / 1425 Indwelling Urethral Catheter 500 / 500 1425 / 1425 Other: Date of Last Bowel Movement 09/10/18 09/10/18 09/11/18 # Bowel Movements 1 # Incontinent Bowel Movements 1 - Constitutional no acute distress - Routine HEENT Exam Head: Present: normocephalic Eye: Present: PERRL ENT: Present: mucous membranes moist - Routine Respiratory Exam Present: patient mechanically ventilated, rhonchi Comments: Rhonchi throughout bilateral upper and lower lobes. - Routine Cardiovascular Exam Present: S1, S2. Absent: murmur, gallop, rubs Comments: heart sounds are very distant. - Routine Abdominal Exam Present: normoactive bowel sounds Comments: Morbidly obese - Routine Extremities Exam Present: edema, pulses intact, normal capillary refill. Absent: cyanosis, clubbing - Routine Skin Exam Present: intact, dry. Absent: cyanosis, erythema - Detailed Neurological Exam: Coma Scale Eye Opening: None Verbal Response: None Motor Response: None Jordyn Coma Scale Total: 3 - Routine Psychiatric Exam Present: unable to assess - Urinary Catheter Management Indwelling Urethral Catheter Cath placed during this visit: yes Reason for continuing: Hourly intake/output Insertion date: 09/08/18 Insertion time: 22:52 Results 09/11/18 03:35 09/11/18 03:35 Cardiac Enzymes 09/09/18 09/09/18 09/10/18 Range/Units 12:08 12:08 04:05 AST 104 H (15-37) U/L Troponin I Cancelled 0.38 H 09/11/18 Range/Units 03:35 AST 63 H (15-37) U/L Troponin I Coagulation 09/09/18 09/09/18 09/09/18 Range/Units 12:44 14:55 22:20 PT (9.8-11.6) sec APTT 185.1 H* D 90.6 H* D 91.6 H* (23.4-31.7) sec 09/10/18 09/10/18 09/10/18 Range/Units 01:00 04:05 07:29 PT 10.8 (9.8-11.6) sec APTT 67.1 H D 65.7 H 57.7 H (23.4-31.7) sec 09/11/18 Range/Units 03:35 PT (9.8-11.6) sec APTT 56.7 H (23.4-31.7) sec CBC 09/10/18 09/11/18 Range/Units 04:05 03:35 WBC 6.3 7.0 (4.0-11.0) th/mm3 RBC 4.34 4.04 (4.00-5.30) mil/mm3 Hgb 11.5 L 10.5 L (11.6-15.3) gm/dL Hct 35.3 32.9 L (35.0-46.0) % Plt Count 265 255 (150-450) th/mm3 Neut # (Auto) 3.1 (1.8-7.7) th/mm3 Lymph # (Auto) 2.3 (1.0-4.8) th/mm3 [place] # (Auto) 0.6 (0.0-0.9) th/mm3 Eos # (Auto) 0.2 (0.0-0.4) th/mm3 Baso # (Auto) 0.0 (0.0-0.2) th/mm3 Comprehensive Metabolic Panel 09/10/18 09/10/18 09/11/18 Range/Units 04:05 22:15 03:35 Sodium 144 144 (136-145) meq/L Potassium 3.4 L 3.5 3.3 L (3.5-5.1) meq/L Chloride 106 106 (98-107) meq/L Carbon Dioxide 26.4 26.3 (21.0-32.0) meq/L BUN 36 H 46 H (7-18) mg/dL Creatinine 4.02 H 5.46 H (0.50-1.00) mg/dL Calcium 7.7 L 7.8 L (8.5-10.1) mg/dL AST 104 H 63 H (15-37) U/L ALT 91 H 77 H (10-53) U/L Alkaline Phosphatase 115 102 (45-117) U/L Total Protein 6.7 6.6 (6.4-8.2) g/dL Albumin 2.5 L 2.4 L (3.4-5.0) g/dL Intake and Output 09/10/18 09/11/18 09/11/18 22:59 06:59 14:59 Intake Total 845 / 845 780 / 780 100 / 100 Output Total 500 / 500 1425 / 1425 Balance 345 / 345 -645 / -645 100 / 100 Intake: IV 682 / 682 400 / 400 100 / 100 Heparin/D5W 25,000 U/250 mL 25, 232 / 232 000 unit In 250 ml @ Per Protocol IV.CONT TITRATE PRN Rx #:[id number] Diprivan 1000 mg/100 ml Inj 1, 300 / 300 300 / 300 100 / 100 000 mg In 100 ml @ 5 MCG/KG/MIN 6.804 mls/hr IV.CONT TITRATE PRN Rx#:[id number] Zosyn 2.25 GM Premix 50 ML @ 50 / 50 100 / 100 100 mls/hr IV.SIG Q6H [facility] Rx#: [id number] KCl 20 mEq Premix Inj 20 meq In 100 / 100 100 ml @ 50 mls/hr IV.SIG ONCE ONE Rx#:[id number] Tube Feeding 133 / 133 280 / 280 Water Bolus Amount 30 / 30 100 / 100 Output: Urine Amount (Catheter) 500 / 500 1425 / 1425 Indwelling Urethral Catheter 500 / 500 1425 / 1425 Other: Date of Last Bowel Movement 09/10/18 09/10/18 09/11/18 # Bowel Movements 1 # Incontinent Bowel Movements 1 Weight 163.8 kg - Imaging and Cardiology Imaging: Impressions Abdomen Ultrasound 09/09/18 00:00 CONCLUSION: 1. Enlarged echogenic liver suggesting fatty infiltration 2. , Gallbladder not visualized Venous Doppler Study 09/09/18 00:00 CONCLUSION: 1. Negative exam with no evidence of deep venous thrombosis. Chest X-Ray 09/11/18 07:28 CONCLUSION: Minimal improvement with better aeration Support apparatus in good position. Assessment and Plan - Assessment (1) Acute kidney failure Code(s): N17.9 - Acute kidney failure, unspecified Status: Acute (2) Respiratory failure Code(s): J96.90 - Respiratory failure, unspecified, unspecified whether with hypoxia or hypercapnia Status: Acute (3) Obesity Code(s): E66.9 - Obesity, unspecified Status: Acute - Plan We will continue with aggressive CHF treatment plan and titrate as needed. Renal evaluation in progress due to acute renal failure. We will continue to monitor patient during her hospitalization. Echo shows severe LV dysfunction; continue and titrate therapy for CHF. Patient's prognosis is guarded, palliative care evaluation in progress. We will continue to monitor patient during hospitalization. Continue ICU care. The patient was seen and evaluated by Dr. Law who participated in care, management and decision making. - Attending Attestation Patient seen and examined. I reviewed and agree with the evaluation and plan as presented. Continue therapy for CHF. Continue ICU care. Overall prognosis remains very serious. D/w patient's family.
--- NOTE | 2018-09-11 11:57 | P.PNNP ---
Subjective Interval history: Patient was seen, no distress, orally intubated on 45% FiO2. Patient's renal function has declined, may need dialysis. Will monitor labs and wait one more day to decide. <Venkatesh Bernal - Last Filed: 09/11/18 11:51> Physical Exam Vital signs: Vital Signs 09/10/18 12:00 09/10/18 13:37 09/10/18 14:00 Temperature 99.3 F Pulse Rate 101 H 112 H Respiratory Rate 22 25 H Blood Pressure 119/73 Pulse Oximetry 98 97 09/10/18 15:25 09/10/18 16:00 09/10/18 16:30 Temperature 99.8 F H Pulse Rate 98 H 95 H 93 H Respiratory Rate 20 22 Blood Pressure 90/51 L 95/58 L Pulse Oximetry 100 99 99 09/10/18 17:00 09/10/18 17:04 09/10/18 17:32 Temperature Pulse Rate 94 H 107 H Respiratory Rate 20 Blood Pressure 98/59 L 133/62 Pulse Oximetry 99 99 99 09/10/18 18:00 09/10/18 18:30 09/10/18 19:00 Temperature Pulse Rate 93 H 91 H 90 Respiratory Rate Blood Pressure 103/63 104/66 108/66 Pulse Oximetry 99 99 100 09/10/18 19:30 09/10/18 19:45 09/10/18 19:59 Temperature Pulse Rate 88 88 Respiratory Rate 20 20 Blood Pressure 109/66 Pulse Oximetry 100 100 09/10/18 20:00 09/10/18 20:30 09/10/18 21:00 Temperature 99.8 F H Pulse Rate 88 87 87 Respiratory Rate 20 Blood Pressure 112/69 113/69 116/70 Pulse Oximetry 100 100 100 09/10/18 21:30 09/10/18 22:00 09/10/18 22:10 Temperature Pulse Rate 86 86 Respiratory Rate 20 Blood Pressure 115/67 117/73 Pulse Oximetry 100 100 100 09/10/18 22:30 09/10/18 23:00 09/10/18 23:30 Temperature Pulse Rate 84 83 83 Respiratory Rate Blood Pressure 115/67 117/71 111/65 Pulse Oximetry 100 100 100 09/10/18 23:53 09/11/18 00:00 09/11/18 00:30 Temperature Pulse Rate 82 84 83 Respiratory Rate 20 Blood Pressure 117/76 119/71 Pulse Oximetry 100 99 09/11/18 01:00 09/11/18 01:25 09/11/18 01:30 Temperature Pulse Rate 82 81 Respiratory Rate 20 Blood Pressure 121/70 121/76 Pulse Oximetry 99 99 99 09/11/18 02:00 09/11/18 02:30 09/11/18 03:00 Temperature Pulse Rate 81 80 79 Respiratory Rate Blood Pressure 121/76 119/75 123/77 Pulse Oximetry 100 100 100 09/11/18 03:30 09/11/18 04:00 09/11/18 04:20 Temperature 98 F Pulse Rate 78 78 Respiratory Rate 20 Blood Pressure 120/74 117/87 Pulse Oximetry 99 100 100 09/11/18 04:21 09/11/18 04:30 09/11/18 05:00 Temperature Pulse Rate 77 76 77 Respiratory Rate 20 Blood Pressure 114/74 110/75 Pulse Oximetry 100 99 09/11/18 06:00 09/11/18 07:00 09/11/18 07:30 Temperature Pulse Rate 77 74 74 Respiratory Rate 20 Blood Pressure 116/69 106/70 Pulse Oximetry 100 100 09/11/18 08:00 09/11/18 08:30 09/11/18 09:00 Temperature Pulse Rate 74 75 84 Respiratory Rate 20 Blood Pressure 116/78 122/88 Pulse Oximetry 100 100 100 09/11/18 09:30 09/11/18 10:00 Temperature Pulse Rate 83 80 Respiratory Rate Blood Pressure 124/76 112/66 Pulse Oximetry 100 100 Intake & Output 09/10/18 09/11/18 09/11/18 18:59 06:59 18:59 Intake Total 895 / 895 880 / 880 150 / 150 Output Total 500 / 500 1425 / 1425 Balance 395 / 395 -545 / -545 150 / 150 Weight 163.8 kg Intake: IV 732 / 732 500 / 500 150 / 150 Heparin/D5W 25,000 U/250 mL 25, 232 / 232 000 unit In 250 ml @ Per Protocol IV.CONT TITRATE PRN Rx #:[id number] Diprivan 1000 mg/100 ml Inj 1, 300 / 300 400 / 400 100 / 100 000 mg In 100 ml @ 5 MCG/KG/MIN 6.804 mls/hr IV.CONT TITRATE PRN Rx#:[id number] Zosyn 2.25 GM Premix 50 ML @ 100 / 100 100 / 100 50 / 50 100 mls/hr IV.SIG Q6H [facility] Rx#: [id number] KCl 20 mEq Premix Inj 20 meq In 100 / 100 100 ml @ 50 mls/hr IV.SIG ONCE ONE Rx#:[id number] Tube Feeding 133 / 133 280 / 280 Water Bolus Amount 30 / 30 100 / 100 Output: Urine Amount (Catheter) 500 / 500 1425 / 1425 Indwelling Urethral Catheter 500 / 500 1425 / 1425 Other: Date of Last Bowel Movement 09/10/18 09/10/18 09/11/18 # Bowel Movements 1 # Incontinent Bowel Movements 1 - Constitutional no acute distress, obese - Routine HEENT Exam ENT: Present: mucous membranes moist - Routine Respiratory Exam Present: patient mechanically ventilated. Absent: respiratory distress - Routine Cardiovascular Exam Present: S1, S2 - Routine Abdominal Exam Present: soft Comments: Obese - Routine Extremities Exam Present: edema Comments: Generalized edema. - Routine Skin Exam Present: intact - Routine Neurological Exam Absent: alert - Routine Psychiatric Exam Present: unable to assess - Urinary Catheter Management Indwelling Urethral Catheter Cath placed during this visit: yes Reason for continuing: Hourly intake/output Insertion date: 09/08/18 Insertion time: 22:52 <Venkatesh Bernal - Last Filed: 09/11/18 11:51> Vital signs: Vital Signs 09/10/18 19:00 09/10/18 19:30 09/10/18 19:45 Temperature Pulse Rate 90 88 Respiratory Rate 20 Blood Pressure 108/66 109/66 Pulse Oximetry 100 100 100 09/10/18 19:59 09/10/18 20:00 09/10/18 20:30 Temperature 99.8 F H Pulse Rate 88 88 87 Respiratory Rate 20 20 Blood Pressure 112/69 113/69 Pulse Oximetry 100 100 09/10/18 21:00 09/10/18 21:30 09/10/18 22:00 Temperature Pulse Rate 87 86 86 Respiratory Rate Blood Pressure 116/70 115/67 117/73 Pulse Oximetry 100 100 100 09/10/18 22:10 09/10/18 22:30 09/10/18 23:00 Temperature Pulse Rate 84 83 Respiratory Rate 20 Blood Pressure 115/67 117/71 Pulse Oximetry 100 100 100 09/10/18 23:30 09/10/18 23:53 09/11/18 00:00 Temperature Pulse Rate 83 82 84 Respiratory Rate 20 Blood Pressure 111/65 117/76 Pulse Oximetry 100 100 09/11/18 00:30 09/11/18 01:00 09/11/18 01:25 Temperature Pulse Rate 83 82 Respiratory Rate 20 Blood Pressure 119/71 121/70 Pulse Oximetry 99 99 99 09/11/18 01:30 09/11/18 02:00 09/11/18 02:30 Temperature Pulse Rate 81 81 80 Respiratory Rate Blood Pressure 121/76 121/76 119/75 Pulse Oximetry 99 100 100 09/11/18 03:00 09/11/18 03:30 09/11/18 04:00 Temperature 98 F Pulse Rate 79 78 78 Respiratory Rate Blood Pressure 123/77 120/74 117/87 Pulse Oximetry 100 99 100 09/11/18 04:20 09/11/18 04:21 09/11/18 04:30 Temperature Pulse Rate 77 76 Respiratory Rate 20 20 Blood Pressure 114/74 Pulse Oximetry 100 100 09/11/18 05:00 09/11/18 06:00 09/11/18 07:00 Temperature Pulse Rate 77 77 74 Respiratory Rate 20 Blood Pressure 110/75 116/69 Pulse Oximetry 99 100 09/11/18 07:30 09/11/18 08:00 09/11/18 08:30 Temperature Pulse Rate 74 74 75 Respiratory Rate 20 Blood Pressure 106/70 116/78 122/88 Pulse Oximetry 100 100 100 09/11/18 09:00 09/11/18 09:30 09/11/18 10:00 Temperature Pulse Rate 84 83 80 Respiratory Rate Blood Pressure 124/76 112/66 Pulse Oximetry 100 100 100 09/11/18 10:30 09/11/18 11:00 09/11/18 11:30 Temperature Pulse Rate 81 81 79 Respiratory Rate Blood Pressure 115/76 112/58 L 117/66 Pulse Oximetry 100 100 100 09/11/18 12:00 09/11/18 12:24 09/11/18 12:30 Temperature 97.4 F L Pulse Rate 77 75 77 Respiratory Rate 20 Blood Pressure 118/69 117/80 Pulse Oximetry 100 100 100 09/11/18 13:00 09/11/18 13:30 09/11/18 14:00 Temperature Pulse Rate 75 76 74 Respiratory Rate Blood Pressure 115/63 116/69 113/84 Pulse Oximetry 99 100 99 09/11/18 14:30 09/11/18 15:00 09/11/18 15:30 Temperature Pulse Rate 78 80 80 Respiratory Rate Blood Pressure 110/73 114/59 L 116/65 Pulse Oximetry 100 100 100 09/11/18 16:00 09/11/18 16:01 09/11/18 16:18 Temperature 97.8 F Pulse Rate 81 80 87 Respiratory Rate 20 Blood Pressure 120/72 Pulse Oximetry 99 99 09/11/18 16:19 09/11/18 16:53 Temperature Pulse Rate 86 Respiratory Rate 20 Blood Pressure Pulse Oximetry 100 Intake & Output 09/10/18 09/11/18 09/11/18 18:59 06:59 18:59 Intake Total 895 / 895 880 / 880 800 / 800 Output Total 500 / 500 1425 / 1425 1700 / 1700 Balance 395 / 395 -545 / -545 -900 / -900 Weight 163.8 kg Intake: IV 732 / 732 500 / 500 800 / 800 Bumex Inj 25 mg In 100 ml @ 1 100 / 100 MG/HR 4 mls/hr IV.CONT .Q24H [facility] Rx#:[id number] Heparin/D5W 25,000 U/250 mL 25, 232 / 232 250 / 250 000 unit In 250 ml @ Per Protocol IV.CONT TITRATE PRN Rx #:[id number] Diprivan 1000 mg/100 ml Inj 1, 300 / 300 400 / 400 400 / 400 000 mg In 100 ml @ 5 MCG/KG/MIN 6.804 mls/hr IV.CONT TITRATE PRN Rx#:[id number] Zosyn 2.25 GM Premix 50 ML @ 100 / 100 100 / 100 50 / 50 100 mls/hr IV.SIG Q6H [facility] Rx#: [id number] KCl 20 mEq Premix Inj 20 meq In 100 / 100 100 ml @ 50 mls/hr IV.SIG ONCE ONE Rx#:[id number] Tube Feeding 133 / 133 280 / 280 Water Bolus Amount 30 / 30 100 / 100 Output: Urine Amount (Catheter) 500 / 500 1425 / 1425 1700 / 1700 Indwelling Urethral Catheter 500 / 500 1425 / 1425 1700 / 1700 Other: Date of Last Bowel Movement 09/10/18 09/10/18 09/11/18 # Bowel Movements 1 # Incontinent Bowel Movements 1 - Urinary Catheter Management Indwelling Urethral Catheter Cath placed during this visit: no <Chris Majano - Last Filed: 09/11/18 18:45> Assessment and Plan - Assessment (1) Acute kidney failure Code(s): N17.9 - Acute kidney failure, unspecified Status: Acute Plan: Baseline renal function is not known. May have renal hypoperfusion. Could have developed contrast nephropathy after CTA. Clinically she appears to fluid overloaded. Patient on Bumex drip, had 1425 mL urine output today via steele cath. Patient's renal function has declined, may need dialysis. Will monitor labs and wait one more day to decide. (2) Respiratory failure Code(s): J96.90 - Respiratory failure, unspecified, unspecified whether with hypoxia or hypercapnia Status: Acute Plan: Patient with PE, and possibly fluid overload. On Heparin drip. Bumex drip. (3) Obesity Code(s): E66.9 - Obesity, unspecified Status: Acute Plan: patient has obesity-hypoventilation syndrome. (4) Pulmonary embolism Code(s): I26.99 - Other pulmonary embolism without acute cor pulmonale Status : Acute Plan: On Heparin. <Venkatesh Bernal - Last Filed: 09/11/18 11:51> - Assessment (1) Acute kidney failure Code(s): N17.9 - Acute kidney failure, unspecified Status: Acute (2) Respiratory failure Code(s): J96.90 - Respiratory failure, unspecified, unspecified whether with hypoxia or hypercapnia Status: Acute (3) Obesity Code(s): E66.9 - Obesity, unspecified Status: Acute (4) Pulmonary embolism Code(s): I26.99 - Other pulmonary embolism without acute cor pulmonale Status : Acute - Attending Attestation patient was seen and examined. I agree with above assessment and plan. The dose of Bumex reduced to 0.5 mg/hour. CXR reveals bilateral infiltrates. <Chris Majano - Last Filed: 09/11/18 18:45>
[2018-09-11] MEDS: Bumetanide Inj 25 MG/100 ML BAG IV.CONT SCH (14:01)
[2018-09-11] MEDS: Heparin Drip 25,000 UNIT/250 ML BAG IV.CONT PRN (14:01)
--- NOTE | 2018-09-11 16:17 | P.DIET ---
Nutritional Evaluation Type of nutrition evaluation: initial Nutrition consult regarding: Tube Feeding Screening comments: 09/11 TF review Subjective Subjective Comments: Assessment here uses SCCM and ASPEN guidelines for critically ill patients. Objective - Diagnosis respiratory failure, artrial flutter - Objective Body Mass Index: 62.0 % IBW: 300 (IBW = 120lb) Body Weight Used for Calculations: IBW, Actual (163.8kg for energy needs) Energy Needs - Lower Range (kCal/kg): 11 Energy Needs - Upper Range (kCal/kg): 14 Lower Limit kCal/kg (kCals): 1,802 Upper Limit kCal/kg (kCals): 2,293 Lower Limit Protein Factor (Grams per Kg): 1.2 Upper Limit Protein Factor (Grams per Kg): 1.5 Lower Protein Needs (Protein): 65 Upper Protein Needs (Protein): 82 Dietitian Reviewed in Medical Record: Curent medications, Intake & Output, Labs , Medical history, Tube feeding Diet Order: TF'ing Objective Comments: PMH: CHF, depression, DM, MRSA, HLD, HTN, peripheral neuropathy Meds: propofol, zosyn, zofran Labs: BUN 46, Cr 5.46, GFR 8, POC glucose 121 133 149 Assessment Assessment: Pt currently intubated, sedated, and on mech vent. Pt receiving Nepro 1.8 @ 50mL /hr. Pt pending to be on dialysis per MD, waiting for 1 day to decide. If pt is not getting dialysis, RD to recommend Suplena 1.8 @ 45mL/hr w/ Beneprotein 1- pkt TID to provide 2019kcal, 67g of protein, 797mL of free water to meet pts nutritional needs. If pt is on dialysis, RD agree w/ Nepro 1.8 @ 50mL/hr. Continue to monitor renal labs and TF tolerance. Labs reviewed, dietitian following. Recommendations: 1. If pt is not getting dialysis, RD to recommend Suplena 1.8 @ 45mL/hr w/ Beneprotein 1-pkt TID to meet pts nutritional needs 2. If pt is on dialysis, RD agree w/ Nepro 1.8 @ 50mL/hr 3. Continue to monitor renal labs and TF tolerance 4. Dietitian following Dietitian to Monitor: Lab values, Renal labs, Intake & Output, Tube feeding tolerance, Medical course
[2018-09-11] MEDS: Morphine Sulfate Inj 2 MG/ML Vial IV.PUSH PRN (23:33)
[2018-09-12] MEDS: Insulin NovoLIN Regular Correctional Sugar Inj SQ SCH ×6 (00:13→20:08)
[2018-09-12] MEDS: Oral Hygiene Kit OROPHARYNG SCH ×4 (00:13→16:40)
[2018-09-12] MEDS: Propofol 1000 mg/100 ml Inj 1,000 MG/100 ML BOTTLE IV.CONT PRN ×9 (01:18→21:29)
[2018-09-12] MEDS: Chlorhexidine Gluconate 2% 1 Pack (2 Cloths) TOPICAL SCH (03:52)
[2018-09-12] MEDS: Piperacil/Tazo 2.25 GM Premix 50 ML IV.SIG SCH ×4 (03:52→21:29)
[2018-09-12 05:09] LABS: Hematocrit 32.1 % (35.0-46.0); Hemoglobin 10.6 gm/dL (11.6-15.3); Mean Corpuscular HGB Conc 32.9 % (32.0-36.0); Mean Corpuscular Hemoglobin 26.3 pg (27.0-34.0); Mean Corpuscular Volume 79.9 fL (80.0-100.0); Mean Platelet Volume 8.2 fL (7.0-11.0); Platelet Count 272 th/mm3 (150-450); Red Blood Count 4.02 mil/mm3 (4.00-5.30); Red Cell Distribution Width 17.4 % (11.6-17.2); White Blood Count 9.4 th/mm3 (4.0-11.0)
[2018-09-12 05:14] LABS: Alanine Aminotransferase 64 U/L (10-53); Albumin 2.5 g/dL (3.4-5.0); Anion Gap 13 meq/L (5-15); Aspartate Aminotransferase 34 U/L (15-37); Blood Urea Nitrogen 54 mg/dL (7-18); Calcium 8.4 mg/dL (8.5-10.1); Carbon Dioxide 25.2 meq/L (21.0-32.0); Chloride 105 meq/L (98-107); Glomerular Filtration Rate 7 mL/min (>89); Glucose,Random 122 mg/dL (74-106); Magnesium 2.3 mg/dL (1.5-2.5); Potassium 3.5 meq/L (3.5-5.1); Sodium 143 meq/L (136-145)
[2018-09-12 05:16] LABS: Alkaline Phosphatase 106 U/L (45-117)
[2018-09-12] MEDS: Heparin Drip 25,000 UNIT/250 ML BAG IV.CONT PRN (07:36)
[2018-09-12] MEDS: Chlorhexidine 0.12% Oral Kit 15 ML UDC OROPHARYNG SCH ×2 (07:36→20:09)
[2018-09-12] MEDS: Senna/Docusate Sodium 8.6/50 MG Tablet PO SCH ×2 (08:54→20:09)
[2018-09-12] MEDS: Famotidine PF Inj 20 MG/2 ML Vial IV.PUSH SCH ×2 (08:54→20:27)
--- NOTE | 2018-09-12 09:15 | XR ---
EXAM DATE: 09/12/2018 9:09 AM EST AGE/SEX: 47 years / Female INDICATIONS: Respiratory disease, short of breath CLINICAL DATA: This is the patient's subsequent encounter. Patient reports that signs and symptoms h ave been present for 3 days and indicates a pain score of Nonresponsive. MEDICAL/SURGICAL HISTORY: . respiratory failure, atrial flutter Non-responsive. COMPARISON: [facility], CHEST 1V SINGLE AP, 09/11/2018. . FINDINGS: Right subclavian central venous catheter is coiled within the subclavian vein. Pelvic congestive changes appear slightly worse. Persistent airspace disease is identified bilaterall y especially within the right upper lobe and left base. Heart remains markedly enlarged. Endotracheal and nasogastric tubes are in stable position CONCLUSION: 1. Increasing pulmonary congestion 2. Stable bilateral patchy airspace disease. 3. Coiled central venous catheter in the right subclavian vein 4. Stable endotracheal and nasogastric tubes. Electronically signed by: Kade Campos MD 09/12/2018 9:14 AM EST
[2018-09-12] MEDS ORDERED: Sod Chloride 0.9% Inj 1,000 ML OTHER PRN ×2 (09:52)
[2018-09-12] MEDS ORDERED: Gelatin 12 MM/7 MM Topical Foam TOPICAL PRN (09:52)
[2018-09-12] MEDS ORDERED: Sod Chloride 0.9% Inj 1,000 ML IV.CONT PRN (09:52)
[2018-09-12] MEDS ORDERED: Heparin 10,000 UNITS/10 ML Vial (for IV use) OTHER PRN (09:52)
[2018-09-12] MEDS ORDERED: Acetaminophen 325 MG Tablet PO PRN (09:52)
[2018-09-12] MEDS ORDERED: Midazolam Inj 5 MG/ML 1 ML Vial ONE (10:39)
[2018-09-12] MEDS ORDERED: fentaNYL Citrate Inj 100 MCG/2 ML Ampul ONE (10:39)
[2018-09-12] MEDS ORDERED: Midazolam Inj 5 MG/ML 1 ML Vial IV.PUSH ONE (11:00)
[2018-09-12] MEDS ORDERED: fentaNYL Citrate Inj 250 MCG/5 ML Ampul IV.PUSH ONE (11:00)
--- NOTE | 2018-09-12 11:34 | P.PNCC ---
Subjective Subjective Remarks/Hospital Course: Middle-aged morbidly obese female was brought in emergently department by EMS due to respiratory failure and unresponsiveness. She was brought in being bagged by BV. Patient was a GCS of 3 upon arrival and hence in no condition to give any history. As per EMS the call went out as shortness of breath while patient got into the car. When they arrived she was in severe respiratory distress. They put her on BiPAP but shortly patient started to lose consciousness with agonal respirations. Family was at the scene and informed EMS that she has history of congestive heart failure. Patient was tachycardic upon arrival with heart rate in 170s. It appeared to be irregularly irregular on the monitor. She was immediately intubated by ED attending with improvement in her heart rate. There is no additional history available. Per report, the family admits the patient has been taking a lot of medications but they are unaware of the names or reasons. 09/10 Patient remains sedated with Diprivan and intubated. Renal function is worsening with Cr: 4.02 from 2.60. Afebrile. On Heparin drip. 09/11: Patient remains intubated sedated critically ill. Urine output has improved with Bumex infusion however creatinine has worsened from 4-5.5 today. D/W with nephrology-no acute indication for dialysis however considering creatinine worsening, will reduce Bumex infusion 0.5 mg/h. Chest x-ray is pending at this time 09/12: Remains intubated sedated with propofol however wakes up and follows commands. Creatinine worsening 6.5 today. Even though her urine output has improved on Bumex infusion 3 L in 24 hours, patient has increasing pulmonary vascular congestion and pulmonary edema. Discussed with nephrology. Will place hemodialysis catheter and start dialysis today for fluid removal. Objective Vital Signs / I&O: Vital Signs 09/11/18 11:30 09/11/18 12:00 09/11/18 12:24 Temperature 97.4 F L Pulse Rate 79 77 75 Respiratory Rate 20 Blood Pressure 117/66 118/69 Pulse Oximetry 100 100 100 09/11/18 12:30 09/11/18 13:00 09/11/18 13:30 Temperature Pulse Rate 77 75 76 Respiratory Rate Blood Pressure 117/80 115/63 116/69 Pulse Oximetry 100 99 100 09/11/18 14:00 09/11/18 14:30 09/11/18 15:00 Temperature Pulse Rate 74 78 80 Respiratory Rate Blood Pressure 113/84 110/73 114/59 L Pulse Oximetry 99 100 100 09/11/18 15:30 09/11/18 16:00 09/11/18 16:01 Temperature 97.8 F Pulse Rate 80 81 80 Respiratory Rate Blood Pressure 116/65 120/72 Pulse Oximetry 100 99 99 09/11/18 16:18 09/11/18 16:19 09/11/18 16:53 Temperature Pulse Rate 87 86 Respiratory Rate 20 20 Blood Pressure Pulse Oximetry 100 09/11/18 20:00 09/11/18 20:10 09/11/18 20:18 Temperature 97.7 F Pulse Rate 90 91 H Respiratory Rate 20 20 20 Blood Pressure 123/73 Pulse Oximetry 100 100 09/11/18 22:00 09/11/18 23:44 09/12/18 00:00 Temperature 98.8 F Pulse Rate 91 H 83 75 Respiratory Rate 20 20 Blood Pressure 114/70 Pulse Oximetry 100 09/12/18 00:02 09/12/18 02:00 09/12/18 03:54 Temperature Pulse Rate 81 78 Respiratory Rate 20 20 Blood Pressure Pulse Oximetry 100 09/12/18 04:00 09/12/18 04:18 09/12/18 06:00 Temperature 98.5 F Pulse Rate 81 83 Respiratory Rate 16 20 Blood Pressure 147/67 H Pulse Oximetry 100 100 09/12/18 07:00 09/12/18 07:30 09/12/18 08:00 Temperature Pulse Rate 77 75 79 Respiratory Rate Blood Pressure 104/62 103/56 L 112/74 Pulse Oximetry 98 97 98 09/12/18 08:30 09/12/18 08:39 09/12/18 10:00 Temperature Pulse Rate 79 80 80 Respiratory Rate 20 Blood Pressure 108/75 Pulse Oximetry 99 100 Intake & Output 09/11/18 09/12/18 09/12/18 18:59 06:59 18:59 Intake Total 800 / 800 1220 / 1220 350 / 350 Output Total 1700 / 1700 1400 / 1400 Balance -900 / -900 -180 / -180 350 / 350 Intake: IV 800 / 800 650 / 650 350 / 350 Bumex Inj 25 mg In 100 ml @ 1 100 / 100 MG/HR 4 mls/hr IV.CONT .Q24H VICKY Rx#:[id number] Heparin/D5W 25,000 U/250 mL 25, 250 / 250 250 / 250 000 unit In 250 ml @ Per Protocol IV.CONT TITRATE PRN Rx #:[id number] Diprivan 1000 mg/100 ml Inj 1, 400 / 400 500 / 500 100 / 100 000 mg In 100 ml @ 5 MCG/KG/MIN 6.804 mls/hr IV.CONT TITRATE PRN Rx#:[id number] Cardizem Inj 125 MG In NS Inj 0 / 0 100 ML @ 5 MG/HR 5 mls/hr IV. CONT TITRATE PRN Rx#:[id number] Zosyn 2.25 GM Premix 50 ML @ 50 / 50 150 / 150 100 mls/hr IV.SIG Q6H [facility] Rx#: [id number] Tube Feeding 370 / 370 Water Bolus Amount 200 / 200 Output: Urine Amount (Catheter) 1700 / 1700 1400 / 1400 Indwelling Urethral Catheter 1700 / 1700 1400 / 1400 Other: Date of Last Bowel Movement 09/11/18 09/11/18 09/12/18 # Bowel Movements 1 1 Result Diagrams: 09/12/18 04:00 09/12/18 04:00 Objective Remarks: GENERAL: Patient is 47 yo intubated and sedated SKIN: Warm and dry. HEAD: Normocephalic. EYES: No scleral icterus. No injection or drainage. NECK: Supple, trachea midline. Unable to appreciate JVD due to body habitus CARDIOVASCULAR: Regular rate and rhythm without murmurs, gallops, or rubs. Remains on IV heparin RESPIRATORY: Breath sounds equal bilaterally. Air entry diminished at the bases GASTROINTESTINAL: Abdomen soft, non-tender, nondistended. MUSCULOSKELETAL: No cyanosis, + edema. Neuro: Sedated, intubated. Wakes up easily understands conversation. Moves extremities purposefully Assessment and Plan - Assessment and Plan Plan: ASSESSMENT: Acute hypoxemic respiratory failure Acute systolic heart failure Severe pulmonary edema Probable pneumonia Sepsis Acute kidney failure Acute pulmonary embolism Obesity hypoventilation syndrome Mild elevated trop Leukocytosis..trending down Elevated AST Morbid obesity Plan Neuro: On Diprivan infusion for sedation, Daily sedation vacation. CT brain: No acute intracranial findings Pulm: Continue with vent support keep sats >92% Bronchodilators, ICU vent bundle. SBT once pulmonary edema is improved CTA chest: Very limited examination due to patient body habitus. Elongated filling defect in the right pulmonary artery suspicious for PE. Moderate-sized area of right lower lobe pulmonary consolidation. Bilateral dependent lower lobe atelectasis. Continue Heparin drip. Monitor PTT per protocol. Broad-spectrum antibiotics with Zosyn, discontinued vancomycin 09/11 CV: Monitor HR and BP keep MAP>65mmHg Echo 09/09: Technically difficult study making assessment of left ventricular function and wall motion. Suboptimal. Grossly, left ventricular function appears severely reduced. probable global hypokinesis. Cards Dr. salazar following : Monitor renal function, I/O's, avoid nephrotoxins Renal function worse with Cr: 6.5 from 5.5 however urine output improved 3 L in 24 hours. However pulmonary edema is worsening, start hemodialysis Renal is following Dr. Majano, discussed with him. Bumex drip to 0.5 mg/ hr. US abdomen: No masses or hydronephrosis, enlarged liver likely due to fatty infiltration. GI: On Pepcid for GI prophylaxis, change tube feeds Nepro with goal rate 50ml/ hr. ID: Continue abx (continue Zosyn, discontinued vancomycin 09/11/2018) monitor for signs of infections ( fever, WBC) Strep pneumonia and Legionella urinary Ag negative 09/09 Blood, sputum and urine cx: All negative to date Heme: Monitor CBC, coags- on Heparin drip. Endo: SSI with accuchecks for glycemic control DVT GI prophylaxis -SCDs -Heparin drip -Pepcid 35 minutes of critical care Patient is severely ill critical with multiorgan failure. She has multiple organs involved now with respiratory failure heart failure renal failure and sepsis. Prognosis is guarded at this time. Start hemodialysis today
--- NOTE | 2018-09-12 11:36 | P.PCN ---
Date of procedure: 09/12/18 Pre-op diagnosis: Acute renal failure Post-op diagnosis: same Procedure: Ultrasound-guided right IJ hemodialysis catheter placement Central line checklist completed, timeout completed. I wore a surgical cap, mask with protective eyewear, full gown and sterile gloves throughout the procedure. Right neck region was prepped using chlorhexidine scrub and draped in sterile fashion. The right IJ vein was identified using the ultrasound. Anesthesia was achieved over the vein using 1% lidocaine. The introducer needle was inserted into the right IJ under direct ultrasound visualization. Venous blood was withdrawn. The syringe was removed and a guidewire was advanced into the introducer needle. A small incision was made at the skin surface with a scalpel and the introducer needle was exchanged for a dilator x2 over the guidewire. After appropriate dilation was obtained, the dilator was exchanged over the wire for a double lumen, 14 F 24 CM, hemodialysis catheter. The wire was removed and the catheter was sutured in place at 20 cm. A sterile central line dressing was placed over the catheter at the insertion site. The patient tolerated the procedure without any hemodynamic compromise. At time of procedure completion, all ports aspirated and flushed properly. Post-procedure chest x-ray is pending at this time. Anesthesia: local Surgeon: Kerry Grimaldo Estimated blood loss (mL): 3 Pathology: none sent Condition: critical Disposition: ICU
--- NOTE | 2018-09-12 12:21 | XR ---
EXAM DATE: 09/12/2018 12:04 PM EST AGE/SEX: 47 years / Female INDICATIONS: Vasocath placement. CLINICAL DATA: This is the patient's subsequent encounter. Patient reports that signs and symptoms h ave been present for 1 day and indicates a pain score of Nonresponsive. MEDICAL/SURGICAL HISTORY: . respiratory failure, atrial flutter. Non-responsive. COMPARISON: [facility], CHEST 1V SINGLE AP, 09/12/2018. . FINDINGS: A single AP supine portable view the chest was obtained and demonstrates interval placement of a righ t internal jugular central venous line with the tip projected over the superior vena cava. There is n o pneumothorax. The endotracheal tube remains in place with the tip at the level of thoracic inlet. A nasogastric tube is seen coursing through the esophagus into the stomach. The heart size remains mod erately enlarged. Hazy opacity remains in the perihilar regions right greater than left. There is no distinct effusion. The bony thorax is intact. CONCLUSION: 1. Interval placement of right internal jugular central venous line with no evidence of pneumothorax . 2. Bilateral hazy opacity in the perihilar regions. 3. Cardiomegaly. Electronically signed by: Zechariah Walker MD Board Certified Radiologist 09/12/2018 12:19 PM LORI Logan
--- NOTE | 2018-09-12 14:24 | P.PNPAL ---
Reason for Visit Reason for visit: a. To assist with evaluation and management of symptoms including: dyspnea, pain. b. To assist medical decision maker(s) with: better understanding of current medical conditions; weighing benefits/burdens of medical treatment options; making medical treatment decisions. Subjective Subjective/Interval History: Patient seen and examined in ICU. Spoke with Dr. Grimaldo, Dr. Majano and nurse, Linda. Spouse and cousin at bedside. Patient is awake and alert. She is writing on paper. She is tearful upon my arrival indicating she does not want her family to leave. We explained they will be back after her Vas-cath and dialysis are completed. I briefly explained to patient about CHF, renal failure and reason for vent and need for dialysis. She nods that she is familiar with dialysis. She understands we hope this will be temporary based on my discussions with nephrology and community development aide. She asks if after the vas-cath placement if she will "be able to talk." I explained she will not be able to speak effectively until after she comes off of the ventilator. She becomes tearful again. She seems to be in agreement with plan of care. She indicates by writing and mouthing words that she has pain in her knees and feet. Rates pain 5/10. indicates she has a history of peripheral neuropathy. I advised she will be getting medication for pain prior to placement of vas-cath. She nods in agreement. Creatinine has increased from 5.46 to 6.40. Albumin 2.5. Remains on mech vent. On propofol. Chest x-ray with increasing pulmonary vascular congestion and pulmonary edema, plan for HD today. Family/Friend Interactions: Family was outside room during my conversation with patient. I met with and cousin after my visit with patient. Additional history obtained and medical review provided. I explained palliative care role and advised I will continue to follow throughout hospital course. Palliative care number provided. Family desires to continue aggressive including FULL CODE and dialysis. Questions answered. Advance Directives Living Will: Never completed Health Care Surrogate: Never completed Durable Power of [employer] Senior Officer: Never completed Health Care Surrogate Name and Number: Health care proxy, spouse: Audra Boles: [phone] Documented care wishes:: No written advance directives on file. Significant change in goals:: FULL CODE. Goals remain aggressive including dialysis at this time. Objective Vital Signs: Vital Signs 09/11/18 14:00 09/11/18 14:30 09/11/18 15:00 Temperature Pulse Rate 74 78 80 Respiratory Rate Blood Pressure 113/84 110/73 114/59 L Pulse Oximetry 99 100 100 09/11/18 15:30 09/11/18 16:00 09/11/18 16:01 Temperature 97.8 F Pulse Rate 80 81 80 Respiratory Rate Blood Pressure 116/65 120/72 Pulse Oximetry 100 99 99 09/11/18 16:18 09/11/18 16:19 09/11/18 16:53 Temperature Pulse Rate 87 86 Respiratory Rate 20 20 Blood Pressure Pulse Oximetry 100 09/11/18 20:00 09/11/18 20:10 09/11/18 20:18 Temperature 97.7 F Pulse Rate 90 91 H Respiratory Rate 20 20 20 Blood Pressure 123/73 Pulse Oximetry 100 100 09/11/18 22:00 09/11/18 23:44 09/12/18 00:00 Temperature 98.8 F Pulse Rate 91 H 83 75 Respiratory Rate 20 20 Blood Pressure 114/70 Pulse Oximetry 100 09/12/18 00:02 09/12/18 02:00 09/12/18 03:54 Temperature Pulse Rate 81 78 Respiratory Rate 20 20 Blood Pressure Pulse Oximetry 100 09/12/18 04:00 09/12/18 04:18 09/12/18 06:00 Temperature 98.5 F Pulse Rate 81 83 Respiratory Rate 16 20 Blood Pressure 147/67 H Pulse Oximetry 100 100 09/12/18 07:00 09/12/18 07:30 09/12/18 08:00 Temperature Pulse Rate 77 75 79 Respiratory Rate Blood Pressure 104/62 103/56 L 112/74 Pulse Oximetry 98 97 98 09/12/18 08:30 09/12/18 08:39 09/12/18 09:00 Temperature Pulse Rate 79 80 80 Respiratory Rate 20 Blood Pressure 108/75 113/80 Pulse Oximetry 99 100 99 09/12/18 09:30 09/12/18 10:00 09/12/18 10:30 Temperature Pulse Rate 76 76 79 Respiratory Rate Blood Pressure 105/68 111/74 113/68 Pulse Oximetry 99 99 99 09/12/18 11:00 09/12/18 11:30 09/12/18 12:00 Temperature Pulse Rate 78 79 72 Respiratory Rate Blood Pressure 105/69 139/77 Pulse Oximetry 98 97 100 09/12/18 12:01 09/12/18 12:31 Temperature Pulse Rate 72 68 Respiratory Rate Blood Pressure 92/74 L 118/59 L Pulse Oximetry 100 100 Intake & Output 09/11/18 09/12/18 09/12/18 18:59 06:59 18:59 Intake Total 800 / 800 1220 / 1220 450 / 450 Output Total 1700 / 1700 1400 / 1400 Balance -900 / -900 -180 / -180 450 / 450 Intake: IV 800 / 800 650 / 650 450 / 450 Bumex Inj 25 mg In 100 ml @ 1 100 / 100 MG/HR 4 mls/hr IV.CONT .Q24H [facility] Rx#:[id number] Heparin/D5W 25,000 U/250 mL 25, 250 / 250 250 / 250 000 unit In 250 ml @ Per Protocol IV.CONT TITRATE PRN Rx #:[id number] Diprivan 1000 mg/100 ml Inj 1, 400 / 400 500 / 500 200 / 200 000 mg In 100 ml @ 5 MCG/KG/MIN 6.804 mls/hr IV.CONT TITRATE PRN Rx#:[id number] Cardizem Inj 125 MG In NS Inj 0 / 0 100 ML @ 5 MG/HR 5 mls/hr IV. CONT TITRATE PRN Rx#:[id number] Zosyn 2.25 GM Premix 50 ML @ 50 / 50 150 / 150 100 mls/hr IV.SIG Q6H [facility] Rx#: [id number] Tube Feeding 370 / 370 Water Bolus Amount 200 / 200 Output: Urine Amount (Catheter) 1700 / 1700 1400 / 1400 Indwelling Urethral Catheter 1700 / 1700 1400 / 1400 Other: Date of Last Bowel Movement 09/11/18 09/11/18 09/12/18 # Bowel Movements 1 1 Physical Exam: CONSTITUTIONAL/GENERAL: This is an overweight female, on mech vent. TUBES/LINES/DRAINS: ETT, OG, right subclavian central line, PIV, bilateral soft wrist restraints, Edwards. Bariatric bed. SKIN: No jaundice, rashes, or lesions. Ecchymoses on upper extremities. No wounds seen anteriorly. Skin temperature appropriate. Not diaphoretic. EYES: pupils equal and reactive. ENT: Hearing adequate. Nose without bleeding or purulent drainage. Thick, clear oral secretions noted. CARDIOVASCULAR: Distant heart sounds. Regular rate and rhythm without murmurs. No JVD. RESPIRATORY/CHEST: Symmetric, unlabored respirations on vent. Diminished breath sounds. Scattered rhonchi. GASTROINTESTINAL: Abdomen protuberant, soft, nondistended. No guarding. Bowel sounds present. Tolerating tube feeding. GENITOURINARY: Without palpable bladder distension. Edwards catheter in place. MUSCULOSKELETAL: Extremities with edema. NEUROLOGICAL: Awake and alert, follows commands, able to make needs known by writing on paper and mouthing words. PSYCHIATRIC: Tearful. Diagnostic Tests Laboratory: Laboratory Results - last 72 hr 09/09/18 09/09/18 09/09/18 14:55 15:20 20:11 WBC RBC Hgb Hct MCV MCH MCHC RDW Plt Count MPV Neut % (Auto) Lymph % (Auto) [place] % (Auto) Eos % (Auto) Baso % (Auto) Neut # (Auto) Lymph # (Auto) [place] # (Auto) Eos # (Auto) Baso # (Auto) WBC Differential Differential Comment PT INR APTT 90.6 H* D Puncture Site Patient Temperature O2 Saturation ABG pH ABG pCO2 ABG pO2 ABG HCO3 ABG O2 Content ABG Base Excess ABG Methemoglobin Gabe Test Hemoglobin Carboxyhemoglobin O2 Delivery Device Vent Setting Inspired O2 Critical Value Sodium Potassium Chloride Carbon Dioxide Anion Gap BUN Creatinine Estimated GFR POC Glucose 111 H 141 H Random Glucose Calcium Phosphorus Magnesium Total Bilirubin AST ALT Alkaline Phosphatase Total Protein Albumin Random Vancomycin 09/09/18 09/10/18 09/10/18 22:20 00:14 01:00 WBC RBC Hgb Hct MCV MCH MCHC RDW Plt Count MPV Neut % (Auto) Lymph % (Auto) [place] % (Auto) Eos % (Auto) Baso % (Auto) Neut # (Auto) Lymph # (Auto) [place] # (Auto) Eos # (Auto) Baso # (Auto) WBC Differential Differential Comment PT INR APTT 91.6 H* 67.1 H D Puncture Site Patient Temperature O2 Saturation ABG pH ABG pCO2 ABG pO2 ABG HCO3 ABG O2 Content ABG Base Excess ABG Methemoglobin Gabe Test Hemoglobin Carboxyhemoglobin O2 Delivery Device Vent Setting Inspired O2 Critical Value Sodium Potassium Chloride Carbon Dioxide Anion Gap BUN Creatinine Estimated GFR POC Glucose 122 H Random Glucose Calcium Phosphorus Magnesium Total Bilirubin AST ALT Alkaline Phosphatase Total Protein Albumin Random Vancomycin 09/10/18 09/10/18 09/10/18 04:05 04:05 04:05 WBC 6.3 RBC 4.34 Hgb 11.5 L Hct 35.3 MCV 81.4 MCH 26.4 L MCHC 32.4 RDW 17.8 H Plt Count 265 MPV 8.3 Neut % (Auto) 49.2 Lymph % (Auto) 36.4 [place] % (Auto) 10.3 H Eos % (Auto) 3.5 Baso % (Auto) 0.6 Neut # (Auto) 3.1 Lymph # (Auto) 2.3 [place] # (Auto) 0.6 Eos # (Auto) 0.2 Baso # (Auto) 0.0 WBC Differential . Differential Comment Auto diff final PT 10.8 INR 1.1 APTT 65.7 H Puncture Site Patient Temperature O2 Saturation ABG pH ABG pCO2 ABG pO2 ABG HCO3 ABG O2 Content ABG Base Excess ABG Methemoglobin Gabe Test Hemoglobin Carboxyhemoglobin O2 Delivery Device Vent Setting Inspired O2 Critical Value Sodium 144 Potassium 3.4 L Chloride 106 Carbon Dioxide 26.4 Anion Gap 12 BUN 36 H Creatinine 4.02 H Estimated GFR 12 L POC Glucose Random Glucose 137 H Calcium 7.7 L Phosphorus 4.6 D Magnesium 1.7 Total Bilirubin 0.4 AST 104 H ALT 91 H Alkaline Phosphatase 115 Total Protein 6.7 Albumin 2.5 L Random Vancomycin 32.2 09/10/18 09/10/18 09/10/18 07:29 09:00 09:25 WBC RBC Hgb Hct MCV MCH MCHC RDW Plt Count MPV Neut % (Auto) Lymph % (Auto) [place] % (Auto) Eos % (Auto) Baso % (Auto) Neut # (Auto) Lymph # (Auto) [place] # (Auto) Eos # (Auto) Baso # (Auto) WBC Differential Differential Comment PT INR APTT 57.7 H Puncture Site Right radial Patient Temperature 98.6 O2 Saturation 96 ABG pH 7.44 H ABG pCO2 35 L ABG pO2 126 H ABG HCO3 23 ABG O2 Content 14.7 ABG Base Excess -0.3 ABG Methemoglobin 1.8 Gabe Test Present Hemoglobin 10.8 L Carboxyhemoglobin 0.8 O2 Delivery Device Ventilator Vent Setting Inspired O2 40 Critical Value No Sodium Potassium Chloride Carbon Dioxide Anion Gap BUN Creatinine Estimated GFR POC Glucose 166 H Random Glucose Calcium Phosphorus Magnesium Total Bilirubin AST ALT Alkaline Phosphatase Total Protein Albumin Random Vancomycin 09/10/18 09/10/18 09/10/18 12:55 15:40 19:43 WBC RBC Hgb Hct MCV MCH MCHC RDW Plt Count MPV Neut % (Auto) Lymph % (Auto) [place] % (Auto) Eos % (Auto) Baso % (Auto) Neut # (Auto) Lymph # (Auto) [place] # (Auto) Eos # (Auto) Baso # (Auto) WBC Differential Differential Comment PT INR APTT Puncture Site Patient Temperature O2 Saturation ABG pH ABG pCO2 ABG pO2 ABG HCO3 ABG O2 Content ABG Base Excess ABG Methemoglobin Gabe Test Hemoglobin Carboxyhemoglobin O2 Delivery Device Vent Setting Inspired O2 Critical Value Sodium Potassium Chloride Carbon Dioxide Anion Gap BUN Creatinine Estimated GFR POC Glucose 161 H 163 H 121 H Random Glucose Calcium Phosphorus Magnesium Total Bilirubin AST ALT Alkaline Phosphatase Total Protein Albumin Random Vancomycin 09/10/18 09/11/18 09/11/18 22:15 00:14 03:31 WBC RBC Hgb Hct MCV MCH MCHC RDW Plt Count MPV Neut % (Auto) Lymph % (Auto) [place] % (Auto) Eos % (Auto) Baso % (Auto) Neut # (Auto) Lymph # (Auto) [place] # (Auto) Eos # (Auto) Baso # (Auto) WBC Differential Differential Comment PT INR APTT Puncture Site Patient Temperature O2 Saturation ABG pH ABG pCO2 ABG pO2 ABG HCO3 ABG O2 Content ABG Base Excess ABG Methemoglobin Gabe Test Hemoglobin Carboxyhemoglobin O2 Delivery Device Vent Setting Inspired O2 Critical Value Sodium Potassium 3.5 Chloride Carbon Dioxide Anion Gap BUN Creatinine Estimated GFR POC Glucose 132 H 133 H Random Glucose Calcium Phosphorus Magnesium Total Bilirubin AST ALT Alkaline Phosphatase Total Protein Albumin Random Vancomycin 09/11/18 09/11/18 09/11/18 03:35 03:35 03:35 WBC 7.0 RBC 4.04 Hgb 10.5 L Hct 32.9 L MCV 81.5 MCH 26.0 L MCHC 31.8 L RDW 17.0 Plt Count 255 MPV 8.3 Neut % (Auto) Lymph % (Auto) [place] % (Auto) Eos % (Auto) Baso % (Auto) Neut # (Auto) Lymph # (Auto) [place] # (Auto) Eos # (Auto) Baso # (Auto) WBC Differential Differential Comment PT INR APTT 56.7 H Puncture Site Patient Temperature O2 Saturation ABG pH ABG pCO2 ABG pO2 ABG HCO3 ABG O2 Content ABG Base Excess ABG Methemoglobin Gabe Test Hemoglobin Carboxyhemoglobin O2 Delivery Device Vent Setting Inspired O2 Critical Value Sodium 144 Potassium 3.3 L Chloride 106 Carbon Dioxide 26.3 Anion Gap 12 BUN 46 H Creatinine 5.46 H Estimated GFR 8 L POC Glucose Random Glucose 123 H Calcium 7.8 L Phosphorus Magnesium Total Bilirubin 0.4 AST 63 H ALT 77 H Alkaline Phosphatase 102 Total Protein 6.6 Albumin 2.4 L Random Vancomycin 18.8 09/11/18 09/11/18 09/11/18 12:25 20:20 23:26 WBC RBC Hgb Hct MCV MCH MCHC RDW Plt Count MPV Neut % (Auto) Lymph % (Auto) [place] % (Auto) Eos % (Auto) Baso % (Auto) Neut # (Auto) Lymph # (Auto) [place] # (Auto) Eos # (Auto) Baso # (Auto) WBC Differential Differential Comment PT INR APTT Puncture Site Patient Temperature O2 Saturation ABG pH ABG pCO2 ABG pO2 ABG HCO3 ABG O2 Content ABG Base Excess ABG Methemoglobin Gabe Test Hemoglobin Carboxyhemoglobin O2 Delivery Device Vent Setting Inspired O2 Critical Value Sodium Potassium Chloride Carbon Dioxide Anion Gap BUN Creatinine Estimated GFR POC Glucose 149 H 92 122 H Random Glucose Calcium Phosphorus Magnesium Total Bilirubin AST ALT Alkaline Phosphatase Total Protein Albumin Random Vancomycin 09/12/18 09/12/18 09/12/18 04:00 04:00 04:00 WBC 9.4 RBC 4.02 Hgb 10.6 L Hct 32.1 L MCV 79.9 L MCH 26.3 L MCHC 32.9 RDW 17.4 H Plt Count 272 MPV 8.2 Neut % (Auto) Lymph % (Auto) [place] % (Auto) Eos % (Auto) Baso % (Auto) Neut # (Auto) Lymph # (Auto) [place] # (Auto) Eos # (Auto) Baso # (Auto) WBC Differential Differential Comment PT INR APTT 62.2 H Puncture Site Patient Temperature O2 Saturation ABG pH ABG pCO2 ABG pO2 ABG HCO3 ABG O2 Content ABG Base Excess ABG Methemoglobin Gabe Test Hemoglobin Carboxyhemoglobin O2 Delivery Device Vent Setting Inspired O2 Critical Value Sodium 143 Potassium 3.5 Chloride 105 Carbon Dioxide 25.2 Anion Gap 13 BUN 54 H Creatinine 6.40 H Estimated GFR 7 L POC Glucose Random Glucose 122 H Calcium 8.4 L Phosphorus Magnesium 2.3 D Total Bilirubin 0.4 AST 34 ALT 64 H Alkaline Phosphatase 106 Total Protein 7.0 Albumin 2.5 L Random Vancomycin 09/12/18 09:59 WBC RBC Hgb Hct MCV MCH MCHC RDW Plt Count MPV Neut % (Auto) Lymph % (Auto) [place] % (Auto) Eos % (Auto) Baso % (Auto) Neut # (Auto) Lymph # (Auto) [place] # (Auto) Eos # (Auto) Baso # (Auto) WBC Differential Differential Comment PT INR APTT 39.9 H D Puncture Site Patient Temperature O2 Saturation ABG pH ABG pCO2 ABG pO2 ABG HCO3 ABG O2 Content ABG Base Excess ABG Methemoglobin Gabe Test Hemoglobin Carboxyhemoglobin O2 Delivery Device Vent Setting Inspired O2 Critical Value Sodium Potassium Chloride Carbon Dioxide Anion Gap BUN Creatinine Estimated GFR POC Glucose Random Glucose Calcium Phosphorus Magnesium Total Bilirubin AST ALT Alkaline Phosphatase Total Protein Albumin Random Vancomycin Result Diagrams: 09/12/18 04:00 09/12/18 04:00 Microbiology: Microbiology 09/09/18 00:30 Aerobic Blood Culture - Preliminary Blood - Peripheral No growth in 3 days Anaerobic Blood Culture - Preliminary No growth in 3 days 09/09/18 00:35 Aerobic Blood Culture - Preliminary Blood - Peripheral No growth in 3 days Anaerobic Blood Culture - Preliminary No growth in 3 days 09/09/18 00:37 Urine Culture - Final Clean Catch Urine No growth in 48 hours 09/09/18 09:15 Gram Stain - Final Sputum - Endotracheal Sputum Culture - Final No growth in 48 hours 09/09/18 08:30 Streptococcus pneumoniae Antigen (M - Final Urine - Catheterized Urine Presumptive negative for streptococcus pneumoniae antigen, suggesting no current or recent infection. Infection due to Streptococcus pneumoniae cannot be ruled out since the antigen present in the sample may be below the detection limit of the test. 09/09/18 09:15 Legionella Antigen - Final Urine - Catheterized Urine Presumptive negative for Legionella pneumophila serogroup 1 antigen in urine, suggesting no recent or recurrent infection. Infection due to Legionella cannot be ruled out since other serogroups and species may cause disease, antigen may not be present in urine in early infection, and the level of antigen present in the urine may be below the detection limit of the test. Imaging: Abdomen Ultrasound 09/09/18 00:00 CONCLUSION: 1. Enlarged echogenic liver suggesting fatty infiltration 2. , Gallbladder not visualized Chest CTA 09/09/18 00:00 CONCLUSION: 1. Very limited examination due to patient body habitus. 2. Elongated filling defect in the right pulmonary artery suspicious for pulmonary embolus. Prominent artifact related to patient body habitus is seen through out the central pulmonary arteries limiting the evaluation. The segmental and subsegmental branches cannot be effectively evaluated on this study. Nuclear medicine VQ scan could be performed for further evaluation. 3. Moderate diffuse cardiomegaly. 4. Moderate-sized area of right lower lobe pulmonary consolidation. 5. Bilateral dependent lower lobe atelectasis. Head CT 09/09/18 00:00 CONCLUSION: No acute intracranial findings. . Venous Doppler Study 09/09/18 00:00 CONCLUSION: 1. Negative exam with no evidence of deep venous thrombosis. Chest X-Ray 09/12/18 11:28 CONCLUSION: 1. Interval placement of right internal jugular central venous line with no evidence of pneumothorax. 2. Bilateral hazy opacity in the perihilar regions. 3. Cardiomegaly. Procedures: * 09/12/18 - vas cath placement and HD started. * 09/08/18 - intubated, right subclavian central line Assessment and Plan - Disease Oriented Problem List (1) Acute kidney failure (2) Respiratory failure (3) Obesity (4) Pulmonary embolism - Symptom Scale (1) Chronic pain 0-10 Scale: 5 (2) Dyspnea 0-10 Scale: 0 Pertinent Non-Medical Issues: Psychosocial: . Disabled. Spiritual: [employer] valerie. Legal: No known written advance directives. Patient is not capacitated to make her own health care decisions at this time. According to [place] Statutes, health care proxy decision making falls to her spouse. Ethical issues impacting care: No known concerns at this time. Important Contacts: * Audra Boles, spouse: [phone] * Avelina Hadley, daughter: [phone] Prognosis: Mrs. Hadley is a 47 year old chronically, critically ill patient with multiple comorbidities now with respiratory, renal and heart failure. Will need to monitor over the coming days to determine. Code Status: Full Code Plan: * Decision maker: Patient may be capacitated to make her own health care decisions, difficult to clarify given difficulty communicating. No known written advance directives. According to [place] Statutes, health care proxy decision making falls to her spouse. * FULL CODE * Family desires continued aggressive care including vas-cath placement and initiation of hemodialysis. * SYMPTOMS: Pain: asleep during my visit. Pain secondary to tubes, bedbound status, multiorgan failure. Dyspnea:on mech vent. No new medication recommendations at this time. * Palliative care number provided. * Palliative care will continue to follow to assist with symptom management and further clarification of goals of medical treatment as needed. . Attestation Attestation: To help prompt me to consider important information that might be impacting today's encounter and assessment, information from prior notes written by myself or my colleagues may have been "brought forward" into today's note. My signature on this note, however, is an attestation that I personally performed the exam, history, and/or decision-making noted today, and, unless otherwise indicated, the interactions with patient, family, and staff as well as the review of records all occurred today. I also attest that the listed assessment and stated plan reflect my best clinical judgment today based on the combination of historical information, prior notes, and today's exam/ interactions. When time spent is documented, it refers only to time spent today by the signer, or if indicated, combined time spent today by collaborating physician/nurse practitioner.
--- NOTE | 2018-09-12 16:25 | P.PNNP ---
Subjective Interval history: Patient was seen, renal function has declined. Discussed the need for dialysis with patient. Patient had right IJ hemodialysis catheter placement today. Patient to be dialyzed today. <Venkatesh Bernal - Last Filed: 09/12/18 16:26> Physical Exam Vital signs: Vital Signs 09/11/18 16:53 09/11/18 20:00 09/11/18 20:10 Temperature 97.7 F Pulse Rate 86 90 Respiratory Rate 20 20 Blood Pressure 123/73 Pulse Oximetry 100 100 09/11/18 20:18 09/11/18 22:00 09/11/18 23:44 Temperature Pulse Rate 91 H 91 H 83 Respiratory Rate 20 20 Blood Pressure Pulse Oximetry 09/12/18 00:00 09/12/18 00:02 09/12/18 02:00 Temperature 98.8 F Pulse Rate 75 81 Respiratory Rate 20 20 Blood Pressure 114/70 Pulse Oximetry 100 100 09/12/18 03:54 09/12/18 04:00 09/12/18 04:18 Temperature 98.5 F Pulse Rate 78 81 Respiratory Rate 20 16 20 Blood Pressure 147/67 H Pulse Oximetry 100 100 09/12/18 06:00 09/12/18 07:00 09/12/18 07:30 Temperature Pulse Rate 83 77 75 Respiratory Rate Blood Pressure 104/62 103/56 L Pulse Oximetry 98 97 09/12/18 08:00 09/12/18 08:30 09/12/18 08:39 Temperature Pulse Rate 79 79 80 Respiratory Rate 20 Blood Pressure 112/74 108/75 Pulse Oximetry 98 99 100 09/12/18 09:00 09/12/18 09:30 09/12/18 10:00 Temperature Pulse Rate 80 76 76 Respiratory Rate Blood Pressure 113/80 105/68 111/74 Pulse Oximetry 99 99 99 09/12/18 10:30 09/12/18 11:00 09/12/18 11:30 Temperature Pulse Rate 79 78 79 Respiratory Rate Blood Pressure 113/68 105/69 139/77 Pulse Oximetry 99 98 97 09/12/18 12:00 09/12/18 12:01 09/12/18 12:31 Temperature Pulse Rate 72 72 68 Respiratory Rate Blood Pressure 92/74 L 118/59 L Pulse Oximetry 100 100 100 09/12/18 14:00 09/12/18 15:10 09/12/18 16:15 Temperature Pulse Rate 66 67 66 Respiratory Rate 20 Blood Pressure Pulse Oximetry 100 Intake & Output 09/11/18 09/12/18 09/12/18 18:59 06:59 18:59 Intake Total 800 / 800 1220 / 1220 600 / 600 Output Total 1700 / 1700 1400 / 1400 950 / 950 Balance -900 / -900 -180 / -180 -350 / -350 Intake: IV 800 / 800 650 / 650 600 / 600 Bumex Inj 25 mg In 100 ml @ 1 100 / 100 MG/HR 4 mls/hr IV.CONT .Q24H [facility] Rx#:[id number] Heparin/D5W 25,000 U/250 mL 25, 250 / 250 250 / 250 000 unit In 250 ml @ Per Protocol IV.CONT TITRATE PRN Rx #:[id number] Diprivan 1000 mg/100 ml Inj 1, 400 / 400 500 / 500 300 / 300 000 mg In 100 ml @ 5 MCG/KG/MIN 6.804 mls/hr IV.CONT TITRATE PRN Rx#:[id number] Cardizem Inj 125 MG In NS Inj 0 / 0 100 ML @ 5 MG/HR 5 mls/hr IV. CONT TITRATE PRN Rx#:[id number] Zosyn 2.25 GM Premix 50 ML @ 50 / 50 150 / 150 50 / 50 100 mls/hr IV.SIG Q6H [facility] Rx#: [id number] Tube Feeding 370 / 370 Water Bolus Amount 200 / 200 Output: Urine Amount (Catheter) 1700 / 1700 1400 / 1400 950 / 950 Indwelling Urethral Catheter 1700 / 1700 1400 / 1400 950 / 950 Other: Date of Last Bowel Movement 09/11/18 09/11/18 09/12/18 # Bowel Movements 1 1 - Constitutional no acute distress, obese - Routine HEENT Exam Eye: Present: EOMI, PERRL ENT: Present: mucous membranes moist - Routine Respiratory Exam Present: patient mechanically ventilated. Absent: respiratory distress - Routine Cardiovascular Exam Present: RRR - Routine Abdominal Exam Comments: Obese - Routine Extremities Exam Present: edema - Routine Neurological Exam Present: alert - Routine Psychiatric Exam Present: unable to assess - Urinary Catheter Management Indwelling Urethral Catheter Cath placed during this visit: yes Reason for continuing: Hourly intake/output Insertion date: 09/08/18 Insertion time: 22:52 <Gabe,Venkatesh - Last Filed: 09/12/18 16:26> Vital signs: Vital Signs 09/11/18 23:44 09/12/18 00:00 09/12/18 00:02 Temperature 98.8 F Pulse Rate 83 75 Respiratory Rate 20 20 20 Blood Pressure 114/70 Pulse Oximetry 100 100 09/12/18 02:00 09/12/18 03:54 09/12/18 04:00 Temperature 98.5 F Pulse Rate 81 78 81 Respiratory Rate 20 16 Blood Pressure 147/67 H Pulse Oximetry 100 09/12/18 04:18 09/12/18 06:00 09/12/18 07:00 Temperature Pulse Rate 83 77 Respiratory Rate 20 Blood Pressure 104/62 Pulse Oximetry 100 98 09/12/18 07:30 09/12/18 08:00 09/12/18 08:30 Temperature Pulse Rate 75 79 79 Respiratory Rate Blood Pressure 103/56 L 112/74 108/75 Pulse Oximetry 97 98 99 09/12/18 08:39 09/12/18 09:00 09/12/18 09:30 Temperature Pulse Rate 80 80 76 Respiratory Rate 20 Blood Pressure 113/80 105/68 Pulse Oximetry 100 99 99 09/12/18 10:00 09/12/18 10:30 09/12/18 11:00 Temperature Pulse Rate 76 79 78 Respiratory Rate Blood Pressure 111/74 113/68 105/69 Pulse Oximetry 99 99 98 09/12/18 11:30 09/12/18 12:00 09/12/18 12:01 Temperature Pulse Rate 79 72 72 Respiratory Rate Blood Pressure 139/77 92/74 L Pulse Oximetry 97 100 100 09/12/18 12:31 09/12/18 13:00 09/12/18 13:30 Temperature Pulse Rate 68 66 66 Respiratory Rate Blood Pressure 118/59 L 102/63 102/68 Pulse Oximetry 100 99 100 09/12/18 13:45 09/12/18 14:00 09/12/18 14:18 Temperature Pulse Rate 65 66 66 Respiratory Rate Blood Pressure 103/67 105/68 105/64 Pulse Oximetry 100 100 100 09/12/18 14:47 09/12/18 15:00 09/12/18 15:10 Temperature Pulse Rate 66 65 67 Respiratory Rate Blood Pressure 105/66 101/63 Pulse Oximetry 100 100 09/12/18 15:15 09/12/18 15:30 09/12/18 15:45 Temperature Pulse Rate 65 64 65 Respiratory Rate Blood Pressure 99/62 L 97/60 L 97/59 L Pulse Oximetry 100 100 100 09/12/18 16:00 09/12/18 16:15 09/12/18 16:30 Temperature Pulse Rate 65 66 67 Respiratory Rate 20 Blood Pressure 98/63 L 99/65 L 100/65 Pulse Oximetry 100 100 100 09/12/18 17:00 09/12/18 17:02 09/12/18 18:00 Temperature Pulse Rate 72 71 69 Respiratory Rate Blood Pressure 94/57 L 93/63 L Pulse Oximetry 100 100 09/12/18 19:00 09/12/18 20:00 09/12/18 20:40 Temperature 97.4 F L Pulse Rate 67 70 73 Respiratory Rate 20 Blood Pressure 100/68 94/56 L 94/57 L Pulse Oximetry 100 100 98 09/12/18 21:00 09/12/18 22:00 Temperature Pulse Rate 74 81 Respiratory Rate Blood Pressure 89/52 L Pulse Oximetry 98 Intake & Output 09/12/18 09/12/18 09/13/18 06:59 18:59 06:59 Intake Total 1220 / 1220 850 / 850 100 / 100 Output Total 1400 / 1400 950 / 950 Balance -180 / -180 -100 / -100 100 / 100 Intake: IV 650 / 650 850 / 850 100 / 100 Heparin/D5W 25,000 U/250 mL 25, 250 / 250 000 unit In 250 ml @ Per Protocol IV.CONT TITRATE PRN Rx #:[id number] Diprivan 1000 mg/100 ml Inj 1, 500 / 500 500 / 500 100 / 100 000 mg In 100 ml @ 5 MCG/KG/MIN 6.804 mls/hr IV.CONT TITRATE PRN Rx#:[id number] Cardizem Inj 125 MG In NS Inj 0 / 0 100 ML @ 5 MG/HR 5 mls/hr IV. CONT TITRATE PRN Rx#:[id number] Zosyn 2.25 GM Premix 50 ML @ 150 / 150 100 / 100 100 mls/hr IV.SIG Q6H [facility] Rx#: [id number] Tube Feeding 370 / 370 Water Bolus Amount 200 / 200 Output: Urine Amount (Catheter) 1400 / 1400 950 / 950 Indwelling Urethral Catheter 1400 / 1400 950 / 950 Other: Date of Last Bowel Movement 09/11/18 09/12/18 09/12/18 # Bowel Movements 1 2 - Urinary Catheter Management Indwelling Urethral Catheter Cath placed during this visit: no <Chris Majano - Last Filed: 09/12/18 22:07> Assessment and Plan - Assessment (1) Acute kidney failure Code(s): N17.9 - Acute kidney failure, unspecified Status: Acute Plan: Baseline renal function is not known. May have renal hypoperfusion. Could have developed contrast nephropathy after CTA. Clinically she appears to fluid overloaded. Patient on Bumex drip, continues to have good urine output via steele cath. Patient's renal function has declined. Patient had right IJ hemodialysis catheter placement today. Patient to be dialyzed today. (2) Respiratory failure Code(s): J96.90 - Respiratory failure, unspecified, unspecified whether with hypoxia or hypercapnia Status: Acute Plan: Patient orally intubated. (3) Obesity Code(s): E66.9 - Obesity, unspecified Status: Acute Plan: patient has obesity-hypoventilation syndrome. (4) Pulmonary embolism Code(s): I26.99 - Other pulmonary embolism without acute cor pulmonale Status : Acute Plan: On Heparin. <Venkatesh Bernal - Last Filed: 09/12/18 16:26> - Assessment (1) Acute kidney failure Code(s): N17.9 - Acute kidney failure, unspecified Status: Acute (2) Respiratory failure Code(s): J96.90 - Respiratory failure, unspecified, unspecified whether with hypoxia or hypercapnia Status: Acute (3) Obesity Code(s): E66.9 - Obesity, unspecified Status: Acute (4) Pulmonary embolism Code(s): I26.99 - Other pulmonary embolism without acute cor pulmonale Status : Acute - Attending Attestation patient was seen and examined. Agree with above assessment and plan. Dialysis today for fluid removal. Discussed with Dr. Grimaldo. <Chris Majano - Last Filed: 09/12/18 22:07>
--- NOTE | 2018-09-12 17:41 | P.PNCA ---
Subjective Interval history: Intubated, sedated Medications and Allergies Active Medications: Active Medications Acetaminophen (Tylenol) 650 mg PO Q6H PRN PRN Reason: PAIN 1-10 AND/OR FEVER >101F Acetaminophen (Tylenol) 650 mg PO UNSCH PRN PRN Reason: SEE LABEL COMMENTS Al Hydroxide/Mg Hydroxide (Milk Of Maria Eugenia Campbellq) 30 ml PO Q12H PRN PRN Reason: Mild Constipation Albuterol (Duoneb Neb (Prn)) 1 ampul NEB Q2HR NEB PRN PRN Reason: WHEEZING Albuterol (Duoneb Neb ([place])) 1 ampul NEB Q4HR NEB [facility] Last Admin: 09/12/18 16:15 Dose: 1 ampul Bisacodyl (Dulcolax Supp) 10 mg RECTAL DAILY PRN PRN Reason: SEVERE CONSITIPATION Chlorhexidine Gluconate (Chlorhexidine 2% Cloth) 3 pack TOPICAL DAILY@0400 [facility] Stop: 09/14/18 03:59 Last Admin: 09/12/18 03:52 Dose: 3 pack Chlorhexidine Gluconate (Chlorhexidine 2% Cloth) 3 pack TOPICAL DAILY@0400 PRN PRN Reason: Extra cloth needed Stop: 09/14/18 03:59 Chlorhexidine Gluconate (Peridex 0.12% Oral Kit) 15 ml OROPHARYNG BID@0800, 2000 [facility] Last Admin: 09/12/18 07:36 Dose: 15 ml Clonidine HCl (Catapres) 0.1 mg PO UNSCH PRN PRN Reason: SEE LABEL COMMENTS Cyclobenzaprine HCl (Flexeril) 10 mg PO Q8H PRN PRN Reason: SPASM Last Admin: 09/11/18 20:23 Dose: 10 mg Dextrose (D50w Vial) 50 ml IV.PUSH UNSCH PRN PRN Reason: PER HYPOGLYCEMIA PROTOCOL Diphenhydramine HCl (Benadryl) 25 mg PO UNSCH PRN PRN Reason: SEE LABEL COMMENTS Famotidine (Pepcid Pf Inj) 10 mg IV.PUSH Q12HR [facility] Last Admin: 09/12/18 08:54 Dose: 10 mg Gelatin (Gelfoam 12 Mm/7 Mm Topical) 1 foam TOPICAL PRN PRN PRN Reason: help stop bleeding from site Gentamicin Sulfate (Gentamicin Inj) 20 mg OTHER WITH DIALYSIS PRN PRN Reason: Dwell Gentamycin Lock Glucagon (Glucagon Inj) 1 mg OTHER PRN PRN PRN Reason: for Hypoglycemia Protocol Heparin Sodium (Porcine) (Heparin Inj) 8,000 units OTHER WITH DIALYSIS PRN PRN Reason: for machine prime Heparin Sodium (Porcine) (Heparin Inj) 1,000 units OTHER WITH DIALYSIS PRN PRN Reason: Dwell Heparin to Fill Catheter Propofol (Diprivan 1000 Mg/100 Ml Inj) 1,000 mg in 100 mls @ 6.804 mls/hr IV.CONT TITRATE PRN; Protocol PRN Reason: Per Protocol Last Admin: 09/12/18 16:27 Dose: 40 mcg/kg/min, 54.43 mls/hr Diltiazem HCl 125 mg/ Sodium (Chloride) 125 mls @ 5 mls/hr IV.CONT TITRATE PRN ; Protocol PRN Reason: Per Protocol Last Titration: 09/11/18 19:00 Dose: Infused Heparin Sodium/Dextrose (Heparin/D5w 25,000 U/250 Ml) 25,000 unit in 250 mls @ 0 mls/hr IV.CONT TITRATE PRN; Protocol PRN Reason: Per Protocol Last Titration: 09/12/18 16:41 Dose: 1,300 units/hr, 13 mls/hr Piperacillin/Tazobactam/Dextrose (Zosyn 2.25 Gm Premix) 50 mls @ 100 mls/hr IV.SIG Q6H [facility] Last Infusion: 09/12/18 16:40 Dose: Infused Bumetanide (Bumex Inj) 25 mg in 100 mls @ 2 mls/hr IV.CONT .Q24H [facility] Last Infusion: 09/11/18 14:22 Dose: 0.5 mg/hr, 2 mls/hr Albumin Human (Flexbumin 25% Inj) 100 mls @ 60 mls/hr IV.SIG WITH DIALYSIS PRN PRN Reason: hypotension / volume replace Sodium Chloride (Ns Inj) 1,000 mls @ 0 mls/hr OTHER .Q0M PRN PRN Reason: for prime and rinse back Sodium Chloride (Ns Inj) 1,000 mls @ 200 mls/hr OTHER .Q5H PRN PRN Reason: for dialyzer flush PRN Sodium Chloride (Ns Inj) 1,000 mls @ 0 mls/hr IV.CONT .Q0M PRN PRN Reason: hypotension / volume replace Insulin Human Regular (Novolin R Correctional Sugar Inj) 0 units SQ Q4HR [facility]; Protocol Last Admin: 09/12/18 16:39 Dose: Not Given Lactulose (Lactulose Liq) 30 ml PO DAILY PRN PRN Reason: SEVERE CONSITIPATION Lactulose (Lactulose Liq) 30 ml PO BID [facility] Last Admin: 09/12/18 08:54 Dose: 30 ml Mannitol (Mannitol Inj) 12.5 gm IV.PUSH UNSCH PRN PRN Reason: hypotension / volume replace Midazolam HCl (Versed Inj) 2 mg IV.PUSH Q1H PRN PRN Reason: SEDATION Miscellaneous Medication () 1 each OROPHARYNG 0000,0400,1200,1600 [facility] Last Admin: 09/12/18 16:40 Dose: 1 each Morphine Sulfate (Morphine Inj) 2 mg IV.PUSH Q2H PRN PRN Reason: PAIN SCALE 6 TO 10 Last Admin: 09/11/18 23:33 Dose: 2 mg Nitroglycerin (Nitrostat Sl) 0.4 mg SL Q5M PRN PRN Reason: CHEST PAIN Ondansetron HCl (Zofran Inj) 4 mg IV.PUSH Q6H PRN PRN Reason: NAUSEA OR VOMITING Ondansetron HCl (Zofran Inj) 4 mg IV.PUSH UNSCH PRN PRN Reason: NAUSEA OR VOMITING Senna/Docusate Sodium (Nereida-Colace) 1 tab PO BID [facility] Last Admin: 09/12/18 08:54 Dose: 1 tab Sennosides (Senokot) 17.2 mg PO Q12H PRN PRN Reason: Moderate Constipation Sodium Chloride (Ns Flush) 2 ml IV.FLUSH BID [facility] Last Admin: 09/12/18 08:54 Dose: 2 ml Sodium Chloride (Ns Flush) 2 ml IV.FLUSH PRN PRN PRN Reason: FLUSH AFTER USING IV ACCESS Sodium Chloride (Ns Flush) 5 ml IV.FLUSH PRN PRN PRN Reason: flush each lumen during HD Allergies Allergy/AdvReac Type Severity Reaction Status Date / Time No Allergy Information Allergy Unverified 09/08/18 22:46 Available Home Medications Medication Instructions Recorded Confirmed Type allopurinol 100 mg PO DAILY 09/11/18 09/11/18 History cyclobenzaprine 5 mg PO TID 09/11/18 09/11/18 History furosemide 40 mg PO DAILY 09/11/18 09/11/18 History hydralazine 50 mg PO Q8HR 09/11/18 09/11/18 History insulin detemir U-100 [Levemir 24 unit SUBCUT Q12HR 09/11/18 09/11/18 History U-100 Insulin] insulin regular human [Novolin R 1 sliding scale dose SUBCUT UD 09/11/18 History Regular U-100 Insuln] levothyroxine 50 mcg PO DAILY 09/11/18 09/11/18 History meloxicam DAILY 09/11/18 History potassium chloride 20 meq PO DAILY 09/11/18 09/11/18 History pravastatin 40 mg PO HS 09/11/18 09/11/18 History pregabalin [Lyrica] 50 mg PO BID 09/11/18 09/11/18 History sertraline 50 mg PO HS 09/11/18 09/11/18 History tramadol 50 mg PO Q6H PRN 09/11/18 09/11/18 History Physical Exam Vital signs: Vital Signs 09/11/18 20:00 09/11/18 20:10 09/11/18 20:18 Temperature 97.7 F Pulse Rate 90 91 H Respiratory Rate 20 20 20 Blood Pressure 123/73 Pulse Oximetry 100 100 09/11/18 22:00 09/11/18 23:44 09/12/18 00:00 Temperature 98.8 F Pulse Rate 91 H 83 75 Respiratory Rate 20 20 Blood Pressure 114/70 Pulse Oximetry 100 09/12/18 00:02 09/12/18 02:00 09/12/18 03:54 Temperature Pulse Rate 81 78 Respiratory Rate 20 20 Blood Pressure Pulse Oximetry 100 09/12/18 04:00 09/12/18 04:18 09/12/18 06:00 Temperature 98.5 F Pulse Rate 81 83 Respiratory Rate 16 20 Blood Pressure 147/67 H Pulse Oximetry 100 100 09/12/18 07:00 09/12/18 07:30 09/12/18 08:00 Temperature Pulse Rate 77 75 79 Respiratory Rate Blood Pressure 104/62 103/56 L 112/74 Pulse Oximetry 98 97 98 09/12/18 08:30 09/12/18 08:39 09/12/18 09:00 Temperature Pulse Rate 79 80 80 Respiratory Rate 20 Blood Pressure 108/75 113/80 Pulse Oximetry 99 100 99 09/12/18 09:30 09/12/18 10:00 09/12/18 10:30 Temperature Pulse Rate 76 76 79 Respiratory Rate Blood Pressure 105/68 111/74 113/68 Pulse Oximetry 99 99 99 09/12/18 11:00 09/12/18 11:30 09/12/18 12:00 Temperature Pulse Rate 78 79 72 Respiratory Rate Blood Pressure 105/69 139/77 Pulse Oximetry 98 97 100 09/12/18 12:01 09/12/18 12:31 09/12/18 13:00 Temperature Pulse Rate 72 68 66 Respiratory Rate Blood Pressure 92/74 L 118/59 L 102/63 Pulse Oximetry 100 100 99 09/12/18 13:30 09/12/18 13:45 09/12/18 14:00 Temperature Pulse Rate 66 65 66 Respiratory Rate Blood Pressure 102/68 103/67 105/68 Pulse Oximetry 100 100 100 09/12/18 14:18 09/12/18 14:47 09/12/18 15:00 Temperature Pulse Rate 66 66 65 Respiratory Rate Blood Pressure 105/64 105/66 101/63 Pulse Oximetry 100 100 100 09/12/18 15:10 09/12/18 15:15 09/12/18 15:30 Temperature Pulse Rate 67 65 64 Respiratory Rate Blood Pressure 99/62 L 97/60 L Pulse Oximetry 100 100 09/12/18 15:45 09/12/18 16:00 09/12/18 16:15 Temperature Pulse Rate 65 65 66 Respiratory Rate 20 Blood Pressure 97/59 L 98/63 L 99/65 L Pulse Oximetry 100 100 100 09/12/18 16:30 09/12/18 17:02 Temperature Pulse Rate 67 71 Respiratory Rate Blood Pressure 100/65 Pulse Oximetry 100 Intake & Output 09/11/18 09/12/18 09/12/18 18:59 06:59 18:59 Intake Total 800 / 800 1220 / 1220 750 / 750 Output Total 1700 / 1700 1400 / 1400 950 / 950 Balance -900 / -900 -180 / -180 -200 / -200 Intake: IV 800 / 800 650 / 650 750 / 750 Bumex Inj 25 mg In 100 ml @ 1 100 / 100 MG/HR 4 mls/hr IV.CONT .Q24H [facility] Rx#:[id number] Heparin/D5W 25,000 U/250 mL 25, 250 / 250 250 / 250 000 unit In 250 ml @ Per Protocol IV.CONT TITRATE PRN Rx #:[id number] Diprivan 1000 mg/100 ml Inj 1, 400 / 400 500 / 500 400 / 400 000 mg In 100 ml @ 5 MCG/KG/MIN 6.804 mls/hr IV.CONT TITRATE PRN Rx#:[id number] Cardizem Inj 125 MG In NS Inj 0 / 0 100 ML @ 5 MG/HR 5 mls/hr IV. CONT TITRATE PRN Rx#:[id number] Zosyn 2.25 GM Premix 50 ML @ 50 / 50 150 / 150 100 / 100 100 mls/hr IV.SIG Q6H [facility] Rx#: [id number] Tube Feeding 370 / 370 Water Bolus Amount 200 / 200 Output: Urine Amount (Catheter) 1700 / 1700 1400 / 1400 950 / 950 Indwelling Urethral Catheter 1700 / 1700 1400 / 1400 950 / 950 Other: Date of Last Bowel Movement 09/11/18 09/11/18 09/12/18 # Bowel Movements 1 1 2 Narrative: Intubated, sedated Lungs with decreased BS Cor reg Abd morbidly obese, soft Bilat LE edema Neuro grossly intact. - Urinary Catheter Management Indwelling Urethral Catheter Cath placed during this visit: yes Reason for continuing: Hourly intake/output Insertion date: 09/08/18 Insertion time: 22:52 Results 09/12/18 04:00 09/12/18 04:00 Cardiac Enzymes 09/11/18 09/12/18 Range/Units 03:35 04:00 AST 63 H 34 (15-37) U/L Coagulation 09/11/18 09/12/18 09/12/18 Range/Units 03:35 04:00 09:59 APTT 56.7 H 62.2 H 39.9 H D (23.4-31.7) sec 09/12/18 Range/Units 14:47 APTT 42.0 H (23.4-31.7) sec CBC 09/11/18 09/12/18 Range/Units 03:35 04:00 WBC 7.0 9.4 (4.0-11.0) th/mm3 RBC 4.04 4.02 (4.00-5.30) mil/mm3 Hgb 10.5 L 10.6 L (11.6-15.3) gm/dL Hct 32.9 L 32.1 L (35.0-46.0) % Plt Count 255 272 (150-450) th/mm3 Comprehensive Metabolic Panel 09/10/18 09/11/18 09/12/18 Range/Units 22:15 03:35 04:00 Sodium 144 143 (136-145) meq/L Potassium 3.5 3.3 L 3.5 (3.5-5.1) meq/L Chloride 106 105 (98-107) meq/L Carbon Dioxide 26.3 25.2 (21.0-32.0) meq/L BUN 46 H 54 H (7-18) mg/dL Creatinine 5.46 H 6.40 H (0.50-1.00) mg/dL Calcium 7.8 L 8.4 L (8.5-10.1) mg/dL AST 63 H 34 (15-37) U/L ALT 77 H 64 H (10-53) U/L Alkaline Phosphatase 102 106 (45-117) U/L Total Protein 6.6 7.0 (6.4-8.2) g/dL Albumin 2.4 L 2.5 L (3.4-5.0) g/dL Intake and Output 09/12/18 09/12/18 09/12/18 06:59 14:59 22:59 Intake Total 970 / 970 600 / 600 150 / 150 Output Total 1400 / 1400 950 / 950 Balance -430 / -430 600 / 600 -800 / -800 Intake: IV 400 / 400 600 / 600 150 / 150 Heparin/D5W 25,000 U/250 mL 25, 250 / 250 000 unit In 250 ml @ Per Protocol IV.CONT TITRATE PRN Rx #:[id number] Diprivan 1000 mg/100 ml Inj 1, 300 / 300 300 / 300 100 / 100 000 mg In 100 ml @ 5 MCG/KG/MIN 6.804 mls/hr IV.CONT TITRATE PRN Rx#:[id number] Zosyn 2.25 GM Premix 50 ML @ 100 / 100 50 / 50 50 / 50 100 mls/hr IV.SIG Q6H [facility] Rx#: [id number] Tube Feeding 370 / 370 Water Bolus Amount 200 / 200 Output: Urine Amount (Catheter) 1400 / 1400 950 / 950 Indwelling Urethral Catheter 1400 / 1400 950 / 950 Other: Date of Last Bowel Movement 09/11/18 09/12/18 09/12/18 # Bowel Movements 1 2 - Imaging and Cardiology Imaging: Impressions Chest X-Ray 09/11/18 07:28 CONCLUSION: Minimal improvement with better aeration Support apparatus in good position. Chest X-Ray 09/12/18 00:00 CONCLUSION: 1. Increasing pulmonary congestion 2. Stable bilateral patchy airspace disease. 3. Coiled central venous catheter in the right subclavian vein 4. Stable endotracheal and nasogastric tubes. Chest X-Ray 09/12/18 11:28 CONCLUSION: 1. Interval placement of right internal jugular central venous line with no evidence of pneumothorax. 2. Bilateral hazy opacity in the perihilar regions. 3. Cardiomegaly. Assessment and Plan - Assessment (1) Acute kidney failure Code(s): N17.9 - Acute kidney failure, unspecified Status: Acute (2) Respiratory failure Code(s): J96.90 - Respiratory failure, unspecified, unspecified whether with hypoxia or hypercapnia Status: Acute (3) Obesity Code(s): E66.9 - Obesity, unspecified Status: Acute - Plan Echo showed severe LV dysfunction; continue and titrate therapy for CHF. Renal evaluation in progress. Remains intubated on the vent. Patient's prognosis remains guarded, palliative care evaluation in progress. We will continue to monitor the patient during her hospitalization. Continue ICU care.
[2018-09-12] MEDS: Bumetanide Inj 25 MG/100 ML BAG IV.CONT SCH (18:15)
[2018-09-13] MEDS: Oral Hygiene Kit OROPHARYNG SCH ×4 (00:45→15:26)
[2018-09-13] MEDS: Propofol 1000 mg/100 ml Inj 1,000 MG/100 ML BOTTLE IV.CONT PRN ×9 (01:03→20:47)
[2018-09-13] MEDS: Piperacil/Tazo 2.25 GM Premix 50 ML IV.SIG SCH ×4 (03:02→22:36)
[2018-09-13] MEDS: Chlorhexidine Gluconate 2% 1 Pack (2 Cloths) TOPICAL SCH (03:02)
[2018-09-13] MEDS: Insulin NovoLIN Regular Correctional Sugar Inj SQ SCH ×6 (03:05→22:27)
[2018-09-13 03:59] LABS: Alanine Aminotransferase 50 U/L (10-53); Albumin 2.5 g/dL (3.4-5.0); Anion Gap 13 meq/L (5-15); Aspartate Aminotransferase 27 U/L (15-37); Blood Urea Nitrogen 46 mg/dL (7-18); Calcium 8.4 mg/dL (8.5-10.1); Chloride 103 meq/L (98-107); Glomerular Filtration Rate 9 mL/min (>89); Glucose,Random 110 mg/dL (74-106); Magnesium 2.3 mg/dL (1.5-2.5); Potassium 3.6 meq/L (3.5-5.1)
[2018-09-13 04:01] LABS: Alkaline Phosphatase 105 U/L (45-117); Total Protein 7.3 g/dL (6.4-8.2)
[2018-09-13 04:06] LABS: Sodium 142 meq/L (136-145)
--- NOTE | 2018-09-13 05:18 | XR ---
EXAM DATE: 09/13/2018 5:02 AM EST AGE/SEX: 47 years / Female INDICATIONS: Respiratory disease. CLINICAL DATA: This is the patient's subsequent encounter. Patient reports that signs and symptoms h ave been present for 2 days and indicates a pain score of Nonresponsive. MEDICAL/SURGICAL HISTORY: . Respiratory failure. Atrial flutter. . Vasocath placement COMPARISON: [facility], CHEST 1V SINGLE AP, 09/12/2018. . FINDINGS: The ET tube, right internal jugular central line, and NG tube appear well placed. The heart size is e nlarged. The lungs demonstrate diffuse increased density. There is silhouetting the left hemidiaphrag m. CONCLUSION: Worsening diffuse consolidation likely related to diffuse edema. Enlargement of the cardiac silhouette.. Electronically signed by: Dillan Kelley MD Board Certified Radiologist 09/13/2018 5:17 AM EST
[2018-09-13] MEDS: Heparin Drip 25,000 UNIT/250 ML BAG IV.CONT PRN (05:43)
[2018-09-13 07:41] LABS: Hematocrit 33.6 % (35.0-46.0); Hemoglobin 11.1 gm/dL (11.6-15.3); Mean Corpuscular HGB Conc 33.2 % (32.0-36.0); Mean Corpuscular Hemoglobin 26.4 pg (27.0-34.0); Mean Corpuscular Volume 79.6 fL (80.0-100.0); Mean Platelet Volume 7.8 fL (7.0-11.0); Platelet Count 272 th/mm3 (150-450); Red Blood Count 4.22 mil/mm3 (4.00-5.30); White Blood Count 6.5 th/mm3 (4.0-11.0)
[2018-09-13] MEDS: Chlorhexidine 0.12% Oral Kit 15 ML UDC OROPHARYNG SCH ×2 (08:19→20:47)
[2018-09-13] MEDS: Famotidine PF Inj 20 MG/2 ML Vial IV.PUSH SCH ×2 (08:19→20:48)
[2018-09-13] MEDS: Senna/Docusate Sodium 8.6/50 MG Tablet PO SCH ×2 (08:19→20:48)
--- NOTE | 2018-09-13 09:19 | P.PNCC ---
Subjective Subjective Remarks/Hospital Course: Middle-aged morbidly obese female was brought in emergently department by EMS due to respiratory failure and unresponsiveness. She was brought in being bagged by BV. Patient was a GCS of 3 upon arrival and hence in no condition to give any history. As per EMS the call went out as shortness of breath while patient got into the car. When they arrived she was in severe respiratory distress. They put her on BiPAP but shortly patient started to lose consciousness with agonal respirations. Family was at the scene and informed EMS that she has history of congestive heart failure. Patient was tachycardic upon arrival with heart rate in 170s. It appeared to be irregularly irregular on the monitor. She was immediately intubated by ED attending with improvement in her heart rate. There is no additional history available. Per report, the family admits the patient has been taking a lot of medications but they are unaware of the names or reasons. 09/10 Patient remains sedated with Diprivan and intubated. Renal function is worsening with Cr: 4.02 from 2.60. Afebrile. On Heparin drip. 09/11: Patient remains intubated sedated critically ill. Urine output has improved with Bumex infusion however creatinine has worsened from 4-5.5 today. D/W with nephrology-no acute indication for dialysis however considering creatinine worsening, will reduce Bumex infusion 0.5 mg/h. Chest x-ray is pending at this time 09/12: Remains intubated sedated with propofol however wakes up and follows commands. Creatinine worsening 6.5 today. Even though her urine output has improved on Bumex infusion 3 L in 24 hours, patient has increasing pulmonary vascular congestion and pulmonary edema. Discussed with nephrology. Will place hemodialysis catheter and start dialysis today for fluid removal. 09/13: Remains intubated sedated with propofol, started on hemodialysis yesterday achieving negative balance. However pulmonary edema persistent. Wakes up to command weakly follows. Creatinine slightly improved with dialysis. Urine output 1.8 L in 24 hours Objective Vital Signs / I&O: Vital Signs 09/12/18 09:30 09/12/18 10:00 09/12/18 10:30 Temperature Pulse Rate 76 76 79 Respiratory Rate Blood Pressure 105/68 111/74 113/68 Pulse Oximetry 99 99 99 09/12/18 11:00 09/12/18 11:30 09/12/18 12:00 Temperature Pulse Rate 78 79 72 Respiratory Rate Blood Pressure 105/69 139/77 Pulse Oximetry 98 97 100 09/12/18 12:01 09/12/18 12:31 09/12/18 13:00 Temperature Pulse Rate 72 68 66 Respiratory Rate Blood Pressure 92/74 L 118/59 L 102/63 Pulse Oximetry 100 100 99 09/12/18 13:30 09/12/18 13:45 09/12/18 14:00 Temperature Pulse Rate 66 65 66 Respiratory Rate Blood Pressure 102/68 103/67 105/68 Pulse Oximetry 100 100 100 09/12/18 14:18 09/12/18 14:47 09/12/18 15:00 Temperature Pulse Rate 66 66 65 Respiratory Rate Blood Pressure 105/64 105/66 101/63 Pulse Oximetry 100 100 100 09/12/18 15:10 09/12/18 15:15 09/12/18 15:30 Temperature Pulse Rate 67 65 64 Respiratory Rate Blood Pressure 99/62 L 97/60 L Pulse Oximetry 100 100 09/12/18 15:45 09/12/18 16:00 09/12/18 16:15 Temperature Pulse Rate 65 65 66 Respiratory Rate 20 Blood Pressure 97/59 L 98/63 L 99/65 L Pulse Oximetry 100 100 100 09/12/18 16:30 09/12/18 17:00 09/12/18 17:02 Temperature Pulse Rate 67 72 71 Respiratory Rate Blood Pressure 100/65 94/57 L Pulse Oximetry 100 100 09/12/18 18:00 09/12/18 19:00 09/12/18 20:00 Temperature 97.4 F L Pulse Rate 69 67 70 Respiratory Rate 20 Blood Pressure 93/63 L 100/68 94/56 L Pulse Oximetry 100 100 100 09/12/18 20:13 09/12/18 20:16 09/12/18 20:40 Temperature Pulse Rate 71 73 Respiratory Rate 20 20 Blood Pressure 94/57 L Pulse Oximetry 100 98 09/12/18 21:00 09/12/18 21:20 09/12/18 21:41 Temperature Pulse Rate 74 77 83 Respiratory Rate Blood Pressure 89/52 L 118/66 114/73 Pulse Oximetry 98 98 100 09/12/18 22:00 09/12/18 22:20 09/12/18 22:40 Temperature Pulse Rate 80 83 85 Respiratory Rate Blood Pressure 101/62 110/71 108/68 Pulse Oximetry 98 98 09/12/18 23:00 09/12/18 23:18 09/12/18 23:20 Temperature Pulse Rate 82 83 83 Respiratory Rate 20 Blood Pressure 105/67 105/66 Pulse Oximetry 100 96 09/13/18 00:00 09/13/18 00:50 09/13/18 01:00 Temperature 98.3 F Pulse Rate 89 86 Respiratory Rate 20 20 Blood Pressure Pulse Oximetry 100 99 94 L 09/13/18 02:00 09/13/18 03:00 09/13/18 03:43 Temperature Pulse Rate 85 79 80 Respiratory Rate Blood Pressure 94/52 L Pulse Oximetry 98 85 L 98 09/13/18 03:45 09/13/18 03:46 09/13/18 04:00 Temperature Pulse Rate 80 81 Respiratory Rate 20 20 20 Blood Pressure 100/63 Pulse Oximetry 98 97 09/13/18 04:20 09/13/18 04:40 09/13/18 05:00 Temperature Pulse Rate 80 82 88 Respiratory Rate Blood Pressure 98/58 L 101/60 Pulse Oximetry 97 96 96 09/13/18 05:11 09/13/18 05:20 09/13/18 05:38 Temperature 98.3 F Pulse Rate 90 86 Respiratory Rate Blood Pressure 105/64 98/54 L Pulse Oximetry 100 100 09/13/18 06:00 09/13/18 08:00 Temperature 98.5 F Pulse Rate 84 80 Respiratory Rate 20 Blood Pressure 99/57 L Pulse Oximetry 99 Intake & Output 09/12/18 09/13/18 09/13/18 18:59 06:59 18:59 Intake Total 850 / 850 850 / 850 Output Total 950 / 950 900 / 900 Balance -100 / -100 -50 / -50 Weight 154.4 kg Intake: IV 850 / 850 500 / 500 Heparin/D5W 25,000 U/250 mL 25, 250 / 250 000 unit In 250 ml @ Per Protocol IV.CONT TITRATE PRN Rx #:[id number] Diprivan 1000 mg/100 ml Inj 1, 500 / 500 400 / 400 000 mg In 100 ml @ 5 MCG/KG/MIN 6.804 mls/hr IV.CONT TITRATE PRN Rx#:[id number] Zosyn 2.25 GM Premix 50 ML @ 100 / 100 100 / 100 100 mls/hr IV.SIG Q6H [facility] Rx#: [id number] Tube Feeding 350 / 350 Output: Urine Amount (Catheter) 950 / 950 900 / 900 Indwelling Urethral Catheter 950 / 950 900 / 900 Other: Date of Last Bowel Movement 09/12/18 09/13/18 09/13/18 # Bowel Movements 2 # Incontinent Bowel Movements 2 Result Diagrams: 09/13/18 07:29 09/13/18 03:09 Objective Remarks: GENERAL: Patient is 47 yo intubated and sedated SKIN: Warm and dry. HEAD: Normocephalic. EYES: No scleral icterus. No injection or drainage. NECK: Supple, trachea midline. Unable to appreciate JVD due to body habitus CARDIOVASCULAR: Regular rate and rhythm without murmurs, gallops, or rubs. Remains on IV heparin RESPIRATORY: Breath sounds equal bilaterally. Air entry diminished at the bases GASTROINTESTINAL: Abdomen soft, non-tender, nondistended. MUSCULOSKELETAL: No cyanosis, + edema. Neuro: Sedated, intubated. Wakes up easily understands conversation. Moves extremities purposefully. Weakly follows commands Assessment and Plan - Assessment and Plan Plan: ASSESSMENT: Acute hypoxemic respiratory failure Acute systolic heart failure Severe pulmonary edema Probable pneumonia Sepsis Acute kidney failure Acute pulmonary embolism Obesity hypoventilation syndrome Mild elevated trop Leukocytosis..trending down Elevated AST Morbid obesity PLAN: Neuro: On Diprivan infusion for sedation, Daily sedation vacation. CT brain: No acute intracranial findings Pulm: Continue with vent support keep sats >92% Bronchodilators, ICU vent bundle. SBT once pulmonary edema is improved CTA chest: Very limited examination due to patient body habitus. Elongated filling defect in the right pulmonary artery suspicious for PE. Moderate-sized area of right lower lobe pulmonary consolidation. Bilateral dependent lower lobe atelectasis. Continue Heparin drip. Monitor PTT per protocol. Broad-spectrum antibiotics with Zosyn, discontinued vancomycin 09/11 CV: Monitor HR and BP keep MAP>65mmHg Echo 09/09: Technically difficult study making assessment of left ventricular function and wall motion. Suboptimal. Grossly, left ventricular function appears severely reduced. probable global hypokinesis. Cards Dr. salazar following Continue fluid removal with hemodialysis started 09/12/2018, and IV Bumex GTT : Monitor renal function, I/O's, avoid nephrotoxins Renal function worse slightly improved with dialysis 5.4 today. Urine output 1.8 L in 24 hours. Hemodialysis started 09/29/2019 3 L removed Renal is following Dr. Majano, continue Bumex drip 0.5 mg/hr. US abdomen: No masses or hydronephrosis, enlarged liver likely due to fatty infiltration. GI: On Pepcid for GI prophylaxis, tube feeds Nepro with goal rate 50ml/hr. ID: Continue abx (continue Zosyn, discontinued vancomycin 09/11/2018) monitor for signs of infections ( fever, WBC) Strep pneumonia and Legionella urinary Ag negative 09/09 Blood, sputum and urine cx: All negative to date Heme: Monitor CBC, coags- on Heparin drip. Endo: SSI with accuchecks for glycemic control DVT GI prophylaxis -SCDs -Heparin drip -Pepcid 35 minutes of critical care Patient is severely ill critical with multiorgan failure. She has multiple organs involved with respiratory failure heart failure renal failure and sepsis. Prognosis is guarded at this time. Started hemodialysis yesterday. Her respiratory and cardiac status remains critical and she remains at risk of acute decompensation
[2018-09-13] MEDS: Bumetanide Inj 25 MG/100 ML BAG IV.CONT SCH (10:00)
[2018-09-13] MEDS ORDERED: Midazolam Inj 5 MG/ML 1 ML Vial ONE (10:07)
[2018-09-13] MEDS: Milrinone Inj 20 MG in Sodium Chlor 0.9% Inj 80 ML IV.CONT SCH ×2 (10:42→20:49)
--- NOTE | 2018-09-13 11:10 | P.PCN ---
Date of procedure: 09/13/18 Pre-op diagnosis: Heart failure, need for invasive monitoring Post-op diagnosis: same Procedure: Left radial arterial line I wore a surgical cap, mask with protective eyewear, full gown and sterile gloves throughout the procedure. Left radial region was prepped using chlorhexidine scrub and draped in sterile fashion. Anesthesia was achieved over the vein using 1% lidocaine. The introducer needle was inserted into the left radial artery and arterial flash was obtained. A guidewire was advanced into the introducer needle. The introducer needle was exchanged for a 20 G 16 CM arterial catheter. The wire was removed and the catheter was sutured in place at 15 cm. A sterile central line dressing was placed over the catheter at the insertion site. The patient tolerated the procedure without any hemodynamic compromise. Good arterial waveform obtained Anesthesia: local Surgeon: Kerry Grimaldo Estimated blood loss (mL): 1 Pathology: none sent Condition: critical Disposition: ICU
[2018-09-13 12:21] LABS: ABG Base Excess 0.6 mmol/L (-2-2); ABG PCO2 28 mmHg (38-42); ABG PO2 77 mmHG (61-120)
--- NOTE | 2018-09-13 12:55 | P.PNNP ---
Subjective Interval history: Patient was seen, no distress, orally intubated. Patient was dialyzed yesterday. Creatinine slightly improved with dialysis, is 5.41. Patient is on Bumex, 900 mL urine made today via steele catheter. Patient to be dialyzed today. Today patient had arterial line placed and on flow Trac monitoring. Patient started on milrinone. . <Venkatesh Bernal - Last Filed: 09/13/18 14:11> Physical Exam Vital signs: Vital Signs 09/12/18 13:00 09/12/18 13:30 09/12/18 13:45 Temperature Pulse Rate 66 66 65 Respiratory Rate Blood Pressure 102/63 102/68 103/67 Pulse Oximetry 99 100 100 09/12/18 14:00 09/12/18 14:18 09/12/18 14:47 Temperature Pulse Rate 66 66 66 Respiratory Rate Blood Pressure 105/68 105/64 105/66 Pulse Oximetry 100 100 100 09/12/18 15:00 09/12/18 15:10 09/12/18 15:15 Temperature Pulse Rate 65 67 65 Respiratory Rate Blood Pressure 101/63 99/62 L Pulse Oximetry 100 100 09/12/18 15:30 09/12/18 15:45 09/12/18 16:00 Temperature Pulse Rate 64 65 65 Respiratory Rate Blood Pressure 97/60 L 97/59 L 98/63 L Pulse Oximetry 100 100 100 09/12/18 16:15 09/12/18 16:30 09/12/18 17:00 Temperature Pulse Rate 66 67 72 Respiratory Rate 20 Blood Pressure 99/65 L 100/65 94/57 L Pulse Oximetry 100 100 100 09/12/18 17:02 09/12/18 18:00 09/12/18 19:00 Temperature Pulse Rate 71 69 67 Respiratory Rate Blood Pressure 93/63 L 100/68 Pulse Oximetry 100 100 09/12/18 20:00 09/12/18 20:13 09/12/18 20:16 Temperature 97.4 F L Pulse Rate 70 71 Respiratory Rate 20 20 20 Blood Pressure 94/56 L Pulse Oximetry 100 100 09/12/18 20:40 09/12/18 21:00 09/12/18 21:20 Temperature Pulse Rate 73 74 77 Respiratory Rate Blood Pressure 94/57 L 89/52 L 118/66 Pulse Oximetry 98 98 98 09/12/18 21:41 09/12/18 22:00 09/12/18 22:20 Temperature Pulse Rate 83 80 83 Respiratory Rate Blood Pressure 114/73 101/62 110/71 Pulse Oximetry 100 98 98 09/12/18 22:40 09/12/18 23:00 09/12/18 23:18 Temperature Pulse Rate 85 82 83 Respiratory Rate 20 Blood Pressure 108/68 105/67 Pulse Oximetry 100 09/12/18 23:20 09/13/18 00:00 09/13/18 00:50 Temperature 98.3 F Pulse Rate 83 89 Respiratory Rate 20 20 Blood Pressure 105/66 Pulse Oximetry 96 100 99 09/13/18 01:00 09/13/18 02:00 09/13/18 03:00 Temperature Pulse Rate 86 85 79 Respiratory Rate Blood Pressure Pulse Oximetry 94 L 98 85 L 09/13/18 03:43 09/13/18 03:45 09/13/18 03:46 Temperature Pulse Rate 80 80 Respiratory Rate 20 20 Blood Pressure 94/52 L Pulse Oximetry 98 98 09/13/18 04:00 09/13/18 04:20 09/13/18 04:40 Temperature Pulse Rate 81 80 82 Respiratory Rate 20 Blood Pressure 100/63 98/58 L 101/60 Pulse Oximetry 97 97 96 09/13/18 05:00 09/13/18 05:11 09/13/18 05:20 Temperature Pulse Rate 88 90 86 Respiratory Rate Blood Pressure 105/64 98/54 L Pulse Oximetry 96 100 100 09/13/18 05:38 09/13/18 06:00 09/13/18 07:00 Temperature 98.3 F Pulse Rate 84 86 Respiratory Rate 20 Blood Pressure Pulse Oximetry 09/13/18 08:00 09/13/18 09:14 09/13/18 10:00 Temperature 98.5 F Pulse Rate 80 84 Respiratory Rate 20 20 Blood Pressure 99/57 L Pulse Oximetry 99 100 09/13/18 11:00 09/13/18 12:00 09/13/18 12:05 Temperature 98.2 F Pulse Rate 78 85 82 Respiratory Rate 20 20 Blood Pressure 93/53 L 99/56 L Pulse Oximetry 97 Intake & Output 09/12/18 09/13/18 09/13/18 18:59 06:59 18:59 Intake Total 850 / 850 850 / 850 350 / 350 Output Total 950 / 950 900 / 900 Balance -100 / -100 -50 / -50 350 / 350 Weight 154.4 kg Intake: IV 850 / 850 500 / 500 350 / 350 Bumex Inj 25 mg In 100 ml @ 0.5 100 / 100 MG/HR 2 mls/hr IV.CONT .Q24H [facility] Rx#:[id number] Heparin/D5W 25,000 U/250 mL 25, 250 / 250 000 unit In 250 ml @ Per Protocol IV.CONT TITRATE PRN Rx #:[id number] Diprivan 1000 mg/100 ml Inj 1, 500 / 500 400 / 400 200 / 200 000 mg In 100 ml @ 5 MCG/KG/MIN 6.804 mls/hr IV.CONT TITRATE PRN Rx#:[id number] Zosyn 2.25 GM Premix 50 ML @ 100 / 100 100 / 100 50 / 50 100 mls/hr IV.SIG Q6H [facility] Rx#: [id number] Tube Feeding 350 / 350 Output: Urine Amount (Catheter) 950 / 950 900 / 900 Indwelling Urethral Catheter 950 / 950 900 / 900 Other: Date of Last Bowel Movement 09/12/18 09/13/18 09/13/18 # Bowel Movements 2 # Incontinent Bowel Movements 2 - Constitutional no acute distress - Routine HEENT Exam Head: Present: normocephalic Eye: Present: EOMI ENT: Present: mucous membranes moist - Routine Neck Exam Present: trachea midline. Absent: tracheal deviation - Routine Respiratory Exam Present: patient mechanically ventilated. Absent: respiratory distress - Routine Cardiovascular Exam Present: RRR - Routine Abdominal Exam Present: soft. Absent: tenderness Comments: Obese - Routine Extremities Exam Present: edema - Routine Psychiatric Exam Present: unable to assess - Urinary Catheter Management Indwelling Urethral Catheter Cath placed during this visit: yes Reason for continuing: Hourly intake/output Insertion date: 09/08/18 Insertion time: 22:52 <Venkatesh Bernal - Last Filed: 09/13/18 14:11> Vital signs: Vital Signs 09/12/18 21:20 09/12/18 21:41 09/12/18 22:00 Temperature Pulse Rate 77 83 80 Respiratory Rate Blood Pressure 118/66 114/73 101/62 Pulse Oximetry 98 100 98 09/12/18 22:20 09/12/18 22:40 09/12/18 23:00 Temperature Pulse Rate 83 85 82 Respiratory Rate Blood Pressure 110/71 108/68 105/67 Pulse Oximetry 98 100 09/12/18 23:18 09/12/18 23:20 09/13/18 00:00 Temperature 98.3 F Pulse Rate 83 83 89 Respiratory Rate 20 20 Blood Pressure 105/66 Pulse Oximetry 96 100 09/13/18 00:50 09/13/18 01:00 09/13/18 02:00 Temperature Pulse Rate 86 85 Respiratory Rate 20 Blood Pressure Pulse Oximetry 99 94 L 98 09/13/18 03:00 09/13/18 03:43 09/13/18 03:45 Temperature Pulse Rate 79 80 Respiratory Rate 20 Blood Pressure 94/52 L Pulse Oximetry 85 L 98 98 09/13/18 03:46 09/13/18 04:00 09/13/18 04:20 Temperature Pulse Rate 80 81 80 Respiratory Rate 20 20 Blood Pressure 100/63 98/58 L Pulse Oximetry 97 97 09/13/18 04:40 09/13/18 05:00 09/13/18 05:11 Temperature Pulse Rate 82 88 90 Respiratory Rate Blood Pressure 101/60 105/64 Pulse Oximetry 96 96 100 09/13/18 05:20 09/13/18 05:38 09/13/18 06:00 Temperature 98.3 F Pulse Rate 86 84 Respiratory Rate Blood Pressure 98/54 L Pulse Oximetry 100 09/13/18 07:00 09/13/18 08:00 09/13/18 09:14 Temperature 98.5 F Pulse Rate 86 80 Respiratory Rate 20 20 20 Blood Pressure 99/57 L Pulse Oximetry 99 100 09/13/18 10:00 09/13/18 11:00 09/13/18 12:00 Temperature 98.2 F Pulse Rate 84 78 85 Respiratory Rate 20 Blood Pressure 93/53 L 99/56 L Pulse Oximetry 97 09/13/18 12:05 09/13/18 14:00 09/13/18 14:28 Temperature Pulse Rate 82 89 Respiratory Rate 20 20 Blood Pressure Pulse Oximetry 09/13/18 16:00 09/13/18 18:00 Temperature 98.6 F Pulse Rate 92 H 101 H Respiratory Rate 16 Blood Pressure 89/50 L Pulse Oximetry 98 Intake & Output 09/13/18 09/13/18 09/14/18 06:59 18:59 06:59 Intake Total 850 / 850 1472 / 1472 200 / 200 Output Total 900 / 900 4850 / 4850 Balance -50 / -50 -3378 / -3378 200 / 200 Weight 154.4 kg Intake: IV 500 / 500 900 / 900 200 / 200 Bumex Inj 25 mg In 100 ml @ 0.5 100 / 100 MG/HR 2 mls/hr IV.CONT .Q24H [facility] Rx#:[id number] Primacor Inj 20 MG In NS Inj 80 100 / 100 ML @ Per Protocol IV.CONT .Q0M [facility] Rx#:[id number] Diprivan 1000 mg/100 ml Inj 1, 400 / 400 500 / 500 100 / 100 000 mg In 100 ml @ 5 MCG/KG/MIN 6.804 mls/hr IV.CONT TITRATE PRN Rx#:[id number] Flexbumin 25% Inj 100 ML @ 60 200 / 200 mls/hr IV.SIG WITH DIALYSIS PRN Rx#:[id number] Zosyn 2.25 GM Premix 50 ML @ 100 / 100 100 / 100 100 mls/hr IV.SIG Q6H [facility] Rx#: [id number] Tube Feeding 350 / 350 522 / 522 Water Bolus Amount 50 / 50 Output: Hemodialysis Amount 4000 / 4000 Urine Amount (Catheter) 900 / 900 850 / 850 Indwelling Urethral Catheter 900 / 900 850 / 850 Other: Date of Last Bowel Movement 09/13/18 09/13/18 # Incontinent Bowel Movements 2 2 - Urinary Catheter Management Indwelling Urethral Catheter Cath placed during this visit: no <Chris Majano - Last Filed: 09/13/18 21:10> Assessment and Plan - Assessment (1) Acute kidney failure Code(s): N17.9 - Acute kidney failure, unspecified Status: Acute Plan: Baseline renal function is not known. May have renal hypoperfusion. Could have developed contrast nephropathy after CTA. Clinically she appears to fluid overloaded. Patient on Bumex drip, continues to have good urine output via steele cath. Patient had right IJ hemodialysis catheter placement and patient dialyzed yesterday. Creatinine slightly improved and is 5.41. Patient to be dialyzed today. (2) Respiratory failure Code(s): J96.90 - Respiratory failure, unspecified, unspecified whether with hypoxia or hypercapnia Status: Acute Plan: Patient orally intubated. (3) Obesity Code(s): E66.9 - Obesity, unspecified Status: Acute Plan: patient has obesity-hypoventilation syndrome. (4) Pulmonary embolism Code(s): I26.99 - Other pulmonary embolism without acute cor pulmonale Status : Acute Plan: On Heparin. <Venkatesh Bernal - Last Filed: 09/13/18 14:11> - Assessment (1) Acute kidney failure Code(s): N17.9 - Acute kidney failure, unspecified Status: Acute (2) Respiratory failure Code(s): J96.90 - Respiratory failure, unspecified, unspecified whether with hypoxia or hypercapnia Status: Acute (3) Obesity Code(s): E66.9 - Obesity, unspecified Status: Acute (4) Pulmonary embolism Code(s): I26.99 - Other pulmonary embolism without acute cor pulmonale Status : Acute - Attending Attestation patient was seen and examined. Agree with above assessment and plan. Seen during dialysis. Monitor urine output and renal function. <Chris Majano - Last Filed: 09/13/18 21:10>
--- NOTE | 2018-09-13 14:54 | P.PNCA ---
Subjective Interval history: Patient remains intubated and sedated at this time. Dialysis in progress. VSS on monitor Medications and Allergies Allergies Allergy/AdvReac Type Severity Reaction Status Date / Time No Allergy Information Allergy Unverified 09/08/18 22:46 Available Home Medications Medication Instructions Recorded Confirmed Type allopurinol 100 mg PO DAILY 09/11/18 09/11/18 History cyclobenzaprine 5 mg PO TID 09/11/18 09/11/18 History furosemide 40 mg PO DAILY 09/11/18 09/11/18 History hydralazine 50 mg PO Q8HR 09/11/18 09/11/18 History insulin detemir U-100 [Levemir 24 unit SUBCUT Q12HR 09/11/18 09/11/18 History U-100 Insulin] insulin regular human [Novolin R 1 sliding scale dose SUBCUT UD 09/11/18 History Regular U-100 Insuln] levothyroxine 50 mcg PO DAILY 09/11/18 09/11/18 History meloxicam DAILY 09/11/18 History potassium chloride 20 meq PO DAILY 09/11/18 09/11/18 History pravastatin 40 mg PO HS 09/11/18 09/11/18 History pregabalin [Lyrica] 50 mg PO BID 09/11/18 09/11/18 History sertraline 50 mg PO HS 09/11/18 09/11/18 History tramadol 50 mg PO Q6H PRN 09/11/18 09/11/18 History Active Medications: Active Medications Acetaminophen (Tylenol) 650 mg PO Q6H PRN PRN Reason: PAIN 1-10 AND/OR FEVER >101F Acetaminophen (Tylenol) 650 mg PO UNSCH PRN PRN Reason: SEE LABEL COMMENTS Al Hydroxide/Mg Hydroxide (Milk Of Maria Eugenia Liq) 30 ml PO Q12H PRN PRN Reason: Mild Constipation Albuterol (Duoneb Neb (Prn)) 1 ampul NEB Q2HR NEB PRN PRN Reason: WHEEZING Last Admin: 09/13/18 12:04 Dose: 1 ampul Bisacodyl (Dulcolax Supp) 10 mg RECTAL DAILY PRN PRN Reason: SEVERE CONSITIPATION Chlorhexidine Gluconate (Chlorhexidine 2% Cloth) 3 pack TOPICAL DAILY@0400 REPLACED BY [facility] Stop: 09/14/18 03:59 Last Admin: 09/13/18 03:02 Dose: 3 pack Chlorhexidine Gluconate (Chlorhexidine 2% Cloth) 3 pack TOPICAL DAILY@0400 PRN PRN Reason: Extra cloth needed Stop: 09/14/18 03:59 Chlorhexidine Gluconate (Peridex 0.12% Oral Kit) 15 ml OROPHARYNG BID@0800, 2000 REPLACED BY [facility] Last Admin: 09/13/18 08:19 Dose: 15 ml Clonidine HCl (Catapres) 0.1 mg PO UNSCH PRN PRN Reason: SEE LABEL COMMENTS Cyclobenzaprine HCl (Flexeril) 10 mg PO Q8H PRN PRN Reason: SPASM Last Admin: 09/11/18 20:23 Dose: 10 mg Dextrose (D50w Vial) 50 ml IV.PUSH UNSCH PRN PRN Reason: PER HYPOGLYCEMIA PROTOCOL Diphenhydramine HCl (Benadryl) 25 mg PO UNSCH PRN PRN Reason: SEE LABEL COMMENTS Famotidine (Pepcid Pf Inj) 10 mg IV.PUSH Q12HR REPLACED BY [facility] Last Admin: 09/13/18 08:19 Dose: 10 mg Gelatin (Gelfoam 12 Mm/7 Mm Topical) 1 foam TOPICAL PRN PRN PRN Reason: help stop bleeding from site Gentamicin Sulfate (Gentamicin Inj) 20 mg OTHER WITH DIALYSIS PRN PRN Reason: Dwell Gentamycin Lock Glucagon (Glucagon Inj) 1 mg OTHER PRN PRN PRN Reason: for Hypoglycemia Protocol Heparin Sodium (Porcine) (Heparin Inj) 8,000 units OTHER WITH DIALYSIS PRN PRN Reason: for machine prime Heparin Sodium (Porcine) (Heparin Inj) 1,000 units OTHER WITH DIALYSIS PRN PRN Reason: Dwell Heparin to Fill Catheter Propofol (Diprivan 1000 Mg/100 Ml Inj) 1,000 mg in 100 mls @ 6.804 mls/hr IV.CONT TITRATE PRN; Protocol PRN Reason: Per Protocol Last Admin: 09/13/18 14:08 Dose: 40 mcg/kg/min, 54.43 mls/hr Diltiazem HCl 125 mg/ Sodium (Chloride) 125 mls @ 5 mls/hr IV.CONT TITRATE PRN ; Protocol PRN Reason: Per Protocol Last Titration: 09/11/18 19:00 Dose: Infused Heparin Sodium/Dextrose (Heparin/D5w 25,000 U/250 Ml) 25,000 unit in 250 mls @ 0 mls/hr IV.CONT TITRATE PRN; Protocol PRN Reason: Per Protocol Last Titration: 09/13/18 10:45 Dose: 1,300 units/hr, 13 mls/hr Piperacillin/Tazobactam/Dextrose (Zosyn 2.25 Gm Premix) 50 mls @ 100 mls/hr IV.SIG Q6H VICKY Last Infusion: 09/13/18 10:22 Dose: Infused Bumetanide (Bumex Inj) 25 mg in 100 mls @ 2 mls/hr IV.CONT .Q24H VICKY Last Admin: 09/13/18 10:00 Dose: 0.5 mg/hr, 2 mls/hr Albumin Human (Flexbumin 25% Inj) 100 mls @ 60 mls/hr IV.SIG WITH DIALYSIS PRN PRN Reason: hypotension / volume replace Sodium Chloride (Ns Inj) 1,000 mls @ 0 mls/hr OTHER .Q0M PRN PRN Reason: for prime and rinse back Sodium Chloride (Ns Inj) 1,000 mls @ 200 mls/hr OTHER .Q5H PRN PRN Reason: for dialyzer flush PRN Sodium Chloride (Ns Inj) 1,000 mls @ 0 mls/hr IV.CONT .Q0M PRN PRN Reason: hypotension / volume replace Milrinone Lactate 20 mg/ (Sodium Chloride) 100 mls @ 0 mls/hr IV.CONT .Q0M VICKY ; Protocol Last Infusion: 09/13/18 12:04 Dose: 0.2 mcg/kg/min, 9.26 mls/hr Insulin Human Regular (Novolin R Correctional Sugar Inj) 0 units SQ Q4HR VICKY; Protocol Last Admin: 09/13/18 12:04 Dose: Not Given Lactulose (Lactulose Liq) 30 ml PO DAILY PRN PRN Reason: SEVERE CONSITIPATION Lactulose (Lactulose Liq) 30 ml PO BID REPLACED BY [facility] Last Admin: 09/13/18 08:19 Dose: 30 ml Mannitol (Mannitol Inj) 12.5 gm IV.PUSH UNSCH PRN PRN Reason: hypotension / volume replace Midazolam HCl (Versed Inj) 2 mg IV.PUSH Q1H PRN PRN Reason: SEDATION Miscellaneous Medication () 1 each OROPHARYNG 0000,0400,1200,1600 REPLACED BY [facility] Last Admin: 09/13/18 12:04 Dose: 1 each Morphine Sulfate (Morphine Inj) 2 mg IV.PUSH Q2H PRN PRN Reason: PAIN SCALE 6 TO 10 Last Admin: 09/11/18 23:33 Dose: 2 mg Nitroglycerin (Nitrostat Sl) 0.4 mg SL Q5M PRN PRN Reason: CHEST PAIN Ondansetron HCl (Zofran Inj) 4 mg IV.PUSH Q6H PRN PRN Reason: NAUSEA OR VOMITING Ondansetron HCl (Zofran Inj) 4 mg IV.PUSH UNSCH PRN PRN Reason: NAUSEA OR VOMITING Senna/Docusate Sodium (Nereida-Colace) 1 tab PO BID REPLACED BY [facility] Last Admin: 09/13/18 08:19 Dose: 1 tab Sennosides (Senokot) 17.2 mg PO Q12H PRN PRN Reason: Moderate Constipation Sodium Chloride (Ns Flush) 2 ml IV.FLUSH BID REPLACED BY [facility] Last Admin: 09/13/18 08:19 Dose: 2 ml Sodium Chloride (Ns Flush) 2 ml IV.FLUSH PRN PRN PRN Reason: FLUSH AFTER USING IV ACCESS Sodium Chloride (Ns Flush) 5 ml IV.FLUSH PRN PRN PRN Reason: flush each lumen during HD Physical Exam Vital signs: Vital Signs 09/12/18 15:00 09/12/18 15:10 09/12/18 15:15 Temperature Pulse Rate 65 67 65 Respiratory Rate Blood Pressure 101/63 99/62 L Pulse Oximetry 100 100 09/12/18 15:30 09/12/18 15:45 09/12/18 16:00 Temperature Pulse Rate 64 65 65 Respiratory Rate Blood Pressure 97/60 L 97/59 L 98/63 L Pulse Oximetry 100 100 100 09/12/18 16:15 09/12/18 16:30 09/12/18 17:00 Temperature Pulse Rate 66 67 72 Respiratory Rate 20 Blood Pressure 99/65 L 100/65 94/57 L Pulse Oximetry 100 100 100 09/12/18 17:02 09/12/18 18:00 09/12/18 19:00 Temperature Pulse Rate 71 69 67 Respiratory Rate Blood Pressure 93/63 L 100/68 Pulse Oximetry 100 100 09/12/18 20:00 09/12/18 20:13 09/12/18 20:16 Temperature 97.4 F L Pulse Rate 70 71 Respiratory Rate 20 20 20 Blood Pressure 94/56 L Pulse Oximetry 100 100 09/12/18 20:40 09/12/18 21:00 09/12/18 21:20 Temperature Pulse Rate 73 74 77 Respiratory Rate Blood Pressure 94/57 L 89/52 L 118/66 Pulse Oximetry 98 98 98 09/12/18 21:41 09/12/18 22:00 09/12/18 22:20 Temperature Pulse Rate 83 80 83 Respiratory Rate Blood Pressure 114/73 101/62 110/71 Pulse Oximetry 100 98 98 09/12/18 22:40 09/12/18 23:00 09/12/18 23:18 Temperature Pulse Rate 85 82 83 Respiratory Rate 20 Blood Pressure 108/68 105/67 Pulse Oximetry 100 09/12/18 23:20 09/13/18 00:00 09/13/18 00:50 Temperature 98.3 F Pulse Rate 83 89 Respiratory Rate 20 20 Blood Pressure 105/66 Pulse Oximetry 96 100 99 09/13/18 01:00 09/13/18 02:00 09/13/18 03:00 Temperature Pulse Rate 86 85 79 Respiratory Rate Blood Pressure Pulse Oximetry 94 L 98 85 L 09/13/18 03:43 09/13/18 03:45 09/13/18 03:46 Temperature Pulse Rate 80 80 Respiratory Rate 20 20 Blood Pressure 94/52 L Pulse Oximetry 98 98 09/13/18 04:00 09/13/18 04:20 09/13/18 04:40 Temperature Pulse Rate 81 80 82 Respiratory Rate 20 Blood Pressure 100/63 98/58 L 101/60 Pulse Oximetry 97 97 96 09/13/18 05:00 09/13/18 05:11 09/13/18 05:20 Temperature Pulse Rate 88 90 86 Respiratory Rate Blood Pressure 105/64 98/54 L Pulse Oximetry 96 100 100 09/13/18 05:38 09/13/18 06:00 09/13/18 07:00 Temperature 98.3 F Pulse Rate 84 86 Respiratory Rate 20 Blood Pressure Pulse Oximetry 09/13/18 08:00 09/13/18 09:14 09/13/18 10:00 Temperature 98.5 F Pulse Rate 80 84 Respiratory Rate 20 20 Blood Pressure 99/57 L Pulse Oximetry 99 100 09/13/18 11:00 09/13/18 12:00 09/13/18 12:05 Temperature 98.2 F Pulse Rate 78 85 82 Respiratory Rate 20 20 Blood Pressure 93/53 L 99/56 L Pulse Oximetry 97 09/13/18 14:00 09/13/18 14:28 Temperature Pulse Rate 89 Respiratory Rate 20 Blood Pressure Pulse Oximetry Intake & Output 09/12/18 09/13/18 09/13/18 18:59 06:59 18:59 Intake Total 850 / 850 850 / 850 450 / 450 Output Total 950 / 950 900 / 900 Balance -100 / -100 -50 / -50 450 / 450 Weight 154.4 kg Intake: IV 850 / 850 500 / 500 450 / 450 Bumex Inj 25 mg In 100 ml @ 0.5 100 / 100 MG/HR 2 mls/hr IV.CONT .Q24H REPLACED BY [facility] Rx#:[id number] Heparin/D5W 25,000 U/250 mL 25, 250 / 250 000 unit In 250 ml @ Per Protocol IV.CONT TITRATE PRN Rx #:[id number] Diprivan 1000 mg/100 ml Inj 1, 500 / 500 400 / 400 300 / 300 000 mg In 100 ml @ 5 MCG/KG/MIN 6.804 mls/hr IV.CONT TITRATE PRN Rx#:[id number] Zosyn 2.25 GM Premix 50 ML @ 100 / 100 100 / 100 50 / 50 100 mls/hr IV.SIG Q6H REPLACED BY [facility] Rx#: [id number] Tube Feeding 350 / 350 Output: Urine Amount (Catheter) 950 / 950 900 / 900 Indwelling Urethral Catheter 950 / 950 900 / 900 Other: Date of Last Bowel Movement 09/12/18 09/13/18 09/13/18 # Bowel Movements 2 # Incontinent Bowel Movements 2 - Constitutional no acute distress - Routine HEENT Exam Head: Present: normocephalic Eye: Present: PERRL ENT: Present: mucous membranes moist - Routine Respiratory Exam Present: patient mechanically ventilated, rhonchi Comments: Rhonchi throughout - Routine Cardiovascular Exam Present: S1, S2. Absent: gallop, rubs - Routine Abdominal Exam Present: normoactive bowel sounds - Routine Extremities Exam Present: edema, pulses intact, normal capillary refill. Absent: cyanosis, clubbing - Routine Skin Exam Present: intact - Routine Neurological Exam sedated - Detailed Neurological Exam: Coma Scale Eye Opening: None Verbal Response: None Motor Response: None [place] Coma Scale Total: 3 - Routine Psychiatric Exam Present: unable to assess - Urinary Catheter Management Indwelling Urethral Catheter Cath placed during this visit: yes Reason for continuing: Hourly intake/output Insertion date: 09/08/18 Insertion time: 22:52 Results 09/13/18 07:29 09/13/18 03:09 Cardiac Enzymes 09/12/18 09/13/18 Range/Units 04:00 03:09 AST 34 27 (15-37) U/L Coagulation 09/12/18 09/12/18 09/12/18 Range/Units 04:00 09:59 14:47 APTT 62.2 H 39.9 H D 42.0 H (23.4-31.7) sec 09/13/18 Range/Units 03:09 APTT 40.9 H (23.4-31.7) sec CBC 09/12/18 09/13/18 Range/Units 04:00 07:29 WBC 9.4 6.5 (4.0-11.0) th/mm3 RBC 4.02 4.22 (4.00-5.30) mil/mm3 Hgb 10.6 L 11.1 L (11.6-15.3) gm/dL Hct 32.1 L 33.6 L (35.0-46.0) % Plt Count 272 272 (150-450) th/mm3 Comprehensive Metabolic Panel 09/12/18 09/13/18 Range/Units 04:00 03:09 Sodium 143 142 (136-145) meq/L Potassium 3.5 3.6 (3.5-5.1) meq/L Chloride 105 103 (98-107) meq/L Carbon Dioxide 25.2 26.0 (21.0-32.0) meq/L BUN 54 H 46 H (7-18) mg/dL Creatinine 6.40 H 5.41 H (0.50-1.00) mg/dL Calcium 8.4 L 8.4 L (8.5-10.1) mg/dL AST 34 27 (15-37) U/L ALT 64 H 50 (10-53) U/L Alkaline Phosphatase 106 105 (45-117) U/L Total Protein 7.0 7.3 (6.4-8.2) g/dL Albumin 2.5 L 2.5 L (3.4-5.0) g/dL Intake and Output 09/12/18 09/13/18 09/13/18 22:59 06:59 14:59 Intake Total 350 / 350 750 / 750 450 / 450 Output Total 950 / 950 900 / 900 Balance -600 / -600 -150 / -150 450 / 450 Intake: IV 350 / 350 400 / 400 450 / 450 Bumex Inj 25 mg In 100 ml @ 0.5 100 / 100 MG/HR 2 mls/hr IV.CONT .Q24H REPLACED BY [facility] Rx#:[id number] Diprivan 1000 mg/100 ml Inj 1, 300 / 300 300 / 300 300 / 300 000 mg In 100 ml @ 5 MCG/KG/MIN 6.804 mls/hr IV.CONT TITRATE PRN Rx#:[id number] Zosyn 2.25 GM Premix 50 ML @ 50 / 50 100 / 100 50 / 50 100 mls/hr IV.SIG Q6H REPLACED BY [facility] Rx#: [id number] Tube Feeding 350 / 350 Output: Urine Amount (Catheter) 950 / 950 900 / 900 Indwelling Urethral Catheter 950 / 950 900 / 900 Other: Date of Last Bowel Movement 09/12/18 09/13/18 09/13/18 # Bowel Movements 2 # Incontinent Bowel Movements 2 Weight 154.4 kg - Imaging and Cardiology Imaging: Impressions Chest X-Ray 09/12/18 00:00 CONCLUSION: 1. Increasing pulmonary congestion 2. Stable bilateral patchy airspace disease. 3. Coiled central venous catheter in the right subclavian vein 4. Stable endotracheal and nasogastric tubes. Chest X-Ray 09/12/18 11:28 CONCLUSION: 1. Interval placement of right internal jugular central venous line with no evidence of pneumothorax. 2. Bilateral hazy opacity in the perihilar regions. 3. Cardiomegaly. Chest X-Ray 09/13/18 06:00 CONCLUSION: Worsening diffuse consolidation likely related to diffuse edema. Enlargement of the cardiac silhouette.. Assessment and Plan - Assessment (1) Acute kidney failure Code(s): N17.9 - Acute kidney failure, unspecified Status: Acute (2) Respiratory failure Code(s): J96.90 - Respiratory failure, unspecified, unspecified whether with hypoxia or hypercapnia Status: Acute (3) Obesity Code(s): E66.9 - Obesity, unspecified Status: Acute - Plan Patient receiving dialysis for acute renal failure, renal evaluation in progress. Patient has severe LV dysfunction; was placed on milrinone gtt, CO 6.0 & CI 2.4 , continue and titrate therapy for CHF. Patient's prognosis remains very serious, palliative care evaluation in progress. This was again discussed with her family. We will continue to monitor the patient during her hospitalization. The patient was seen and evaluated by Dr. Law who participated in care, management and decision making. - Attending Attestation Patient seen and examined. I reviewed and agree with the evaluation and plan as presented. Continue tx for CHF. Overall prognosis remains poor.
[2018-09-13] MEDS: Albumin Human 25% Inj 100 ML IV.SIG PRN ×2 (15:07→16:15)
--- NOTE | 2018-09-13 16:47 | P.PNPAL ---
Reason for Visit Reason for visit: a. To assist with evaluation and management of symptoms including: dyspnea, pain. b. To assist medical decision maker(s) with: better understanding of current medical conditions; weighing benefits/burdens of medical treatment options; making medical treatment decisions. Subjective Subjective/Interval History: Patient seen and examined in ICU. Spouse, daughter and family friend at bedside. Also present Gisela Roman LCSW. Patient indicated ok to speak in front of family. Daughter is wiping tears from patient face. She indicates patient is upset that the doctor just came in and told her she is going to . I provided medical update regarding respiratory, renal and heart failure. I explained the purpose of dialysis. We talked about heart disease and family acknowledges her chronic illness and debility. Patient seems to be nodding yes and no appropriately to questions, though appears more lethargic today. Daughter is asking about completion of POA paperwork as she tells me patient is asking her to speak for patient. Patient nods yes in agreement when the daughter is talking about her wishes. I explained the [place] statutes in regards to healthcare proxy decision making. I explained that decision making legally falls to her spouse though we will be sure to include her daughter Avelina in decision-making throughout hospital course. If and when patient appears able to complete written advance directives the palliative care team will assist. I advised that today does not appear to be the day that she is capable of making these written decisions given her lethargy and profound weakness. Family is in agreement. I additionally discussed CODE STATUS with patient and family. Family verbalizes desire for FULL CODE, patient nods in agreement. Palliative care will continue to follow throughout hospital course to provide communication. We agreed that palliative care would follow up on 09/16/18 to provide additional medical update. Patient remains on mechanical ventilation. Post hemodialysis 09/12/18 with removal of 3 L of fluid. WBC 6.5, hemoglobin 11.1, platelet count 272. Creatinine 5.41, BUN 46, GFR 9. Albumin 2.5. Cultures negative to date. Questions answered to family satisfaction. Palliative care number provided. Advance Directives Living Will: Never completed Health Care Surrogate: Never completed Durable Power of Field Assessor: Never completed Health Care Surrogate Name and Number: HCP, spouse: Audra: [phone] -pt wants dtr included in ALL decisions Documented care wishes:: No written advance directives on file. Family has been unable to find previously completed written advanced directives. Significant change in goals:: FULL CODE. Goals remain aggressive at this time. Objective Vital Signs: Vital Signs 09/12/18 17:00 09/12/18 17:02 09/12/18 18:00 Temperature Pulse Rate 72 71 69 Respiratory Rate Blood Pressure 94/57 L 93/63 L Pulse Oximetry 100 100 09/12/18 19:00 09/12/18 20:00 09/12/18 20:13 Temperature 97.4 F L Pulse Rate 67 70 Respiratory Rate 20 20 Blood Pressure 100/68 94/56 L Pulse Oximetry 100 100 100 09/12/18 20:16 09/12/18 20:40 09/12/18 21:00 Temperature Pulse Rate 71 73 74 Respiratory Rate 20 Blood Pressure 94/57 L 89/52 L Pulse Oximetry 98 98 09/12/18 21:20 09/12/18 21:41 09/12/18 22:00 Temperature Pulse Rate 77 83 80 Respiratory Rate Blood Pressure 118/66 114/73 101/62 Pulse Oximetry 98 100 98 09/12/18 22:20 09/12/18 22:40 09/12/18 23:00 Temperature Pulse Rate 83 85 82 Respiratory Rate Blood Pressure 110/71 108/68 105/67 Pulse Oximetry 98 100 09/12/18 23:18 09/12/18 23:20 09/13/18 00:00 Temperature 98.3 F Pulse Rate 83 83 89 Respiratory Rate 20 20 Blood Pressure 105/66 Pulse Oximetry 96 100 09/13/18 00:50 09/13/18 01:00 09/13/18 02:00 Temperature Pulse Rate 86 85 Respiratory Rate 20 Blood Pressure Pulse Oximetry 99 94 L 98 09/13/18 03:00 09/13/18 03:43 09/13/18 03:45 Temperature Pulse Rate 79 80 Respiratory Rate 20 Blood Pressure 94/52 L Pulse Oximetry 85 L 98 98 09/13/18 03:46 09/13/18 04:00 09/13/18 04:20 Temperature Pulse Rate 80 81 80 Respiratory Rate 20 20 Blood Pressure 100/63 98/58 L Pulse Oximetry 97 97 09/13/18 04:40 09/13/18 05:00 09/13/18 05:11 Temperature Pulse Rate 82 88 90 Respiratory Rate Blood Pressure 101/60 105/64 Pulse Oximetry 96 96 100 09/13/18 05:20 09/13/18 05:38 09/13/18 06:00 Temperature 98.3 F Pulse Rate 86 84 Respiratory Rate Blood Pressure 98/54 L Pulse Oximetry 100 09/13/18 07:00 09/13/18 08:00 09/13/18 09:14 Temperature 98.5 F Pulse Rate 86 80 Respiratory Rate 20 20 20 Blood Pressure 99/57 L Pulse Oximetry 99 100 09/13/18 10:00 09/13/18 11:00 09/13/18 12:00 Temperature 98.2 F Pulse Rate 84 78 85 Respiratory Rate 20 Blood Pressure 93/53 L 99/56 L Pulse Oximetry 97 09/13/18 12:05 09/13/18 14:00 09/13/18 14:28 Temperature Pulse Rate 82 89 Respiratory Rate 20 20 Blood Pressure Pulse Oximetry 09/13/18 16:00 Temperature 98.6 F Pulse Rate 97 H Respiratory Rate 16 Blood Pressure 86/51 L Pulse Oximetry 98 Intake & Output 09/12/18 09/13/18 09/13/18 18:59 06:59 18:59 Intake Total 850 / 850 850 / 850 550 / 550 Output Total 950 / 950 900 / 900 Balance -100 / -100 -50 / -50 550 / 550 Weight 154.4 kg Intake: IV 850 / 850 500 / 500 550 / 550 Bumex Inj 25 mg In 100 ml @ 0.5 100 / 100 MG/HR 2 mls/hr IV.CONT .Q24H [facility] Rx#:[id number] Heparin/D5W 25,000 U/250 mL 25, 250 / 250 000 unit In 250 ml @ Per Protocol IV.CONT TITRATE PRN Rx #:[id number] Diprivan 1000 mg/100 ml Inj 1, 500 / 500 400 / 400 300 / 300 000 mg In 100 ml @ 5 MCG/KG/MIN 6.804 mls/hr IV.CONT TITRATE PRN Rx#:[id number] Flexbumin 25% Inj 100 ML @ 60 100 / 100 mls/hr IV.SIG WITH DIALYSIS PRN Rx#:[id number] Zosyn 2.25 GM Premix 50 ML @ 100 / 100 100 / 100 50 / 50 100 mls/hr IV.SIG Q6H [facility] Rx#: [id number] Tube Feeding 350 / 350 Output: Urine Amount (Catheter) 950 / 950 900 / 900 Indwelling Urethral Catheter 950 / 950 900 / 900 Other: Date of Last Bowel Movement 09/12/18 09/13/18 09/13/18 # Bowel Movements 2 # Incontinent Bowel Movements 2 Physical Exam: CONSTITUTIONAL/GENERAL: This is an overweight female, on mech vent. TUBES/LINES/DRAINS: ETT, OG, right subclavian central line, vas-cath, a-line, PIV, bilateral soft wrist restraints, Edwards. Bariatric bed. SKIN: No jaundice, rashes, or lesions. Ecchymoses on upper extremities. No wounds seen anteriorly. Skin temperature appropriate. Not diaphoretic. EYES: pupils equal and reactive. ENT: Asleep, unable to assess hearing. Nose without bleeding or purulent drainage. Throat difficult to visualize secondary to tubes. CARDIOVASCULAR: Distant heart sounds. Regular rate and rhythm without murmurs. No JVD. RESPIRATORY/CHEST: Symmetric, unlabored respirations on vent. Diminished breath sounds. Scattered rhonchi. GASTROINTESTINAL: Abdomen protuberant, soft, nondistended. No guarding. Bowel sounds present. Tolerating tube feeding. GENITOURINARY: Without palpable bladder distension. Edwards catheter in place. MUSCULOSKELETAL: Extremities with edema. LYMPHATICS: Not examined. NEUROLOGICAL: Asleep. PSYCHIATRIC: Asleep. Diagnostic Tests Laboratory: Laboratory Results - last 72 hr 09/10/18 09/10/18 09/11/18 19:43 22:15 00:14 WBC RBC Hgb Hct MCV MCH MCHC RDW Plt Count MPV APTT Puncture Site Patient Temperature O2 Saturation ABG pH ABG pCO2 ABG pO2 ABG HCO3 ABG O2 Content ABG Base Excess ABG Methemoglobin Gabe Test Hemoglobin Carboxyhemoglobin O2 Delivery Device Vent Setting Critical Value Sodium Potassium 3.5 Chloride Carbon Dioxide Anion Gap BUN Creatinine Estimated GFR POC Glucose 121 H 132 H Random Glucose Calcium Magnesium Total Bilirubin AST ALT Alkaline Phosphatase Total Protein Albumin Random Vancomycin 09/11/18 09/11/18 09/11/18 03:31 03:35 03:35 WBC 7.0 RBC 4.04 Hgb 10.5 L Hct 32.9 L MCV 81.5 MCH 26.0 L MCHC 31.8 L RDW 17.0 Plt Count 255 MPV 8.3 APTT Puncture Site Patient Temperature O2 Saturation ABG pH ABG pCO2 ABG pO2 ABG HCO3 ABG O2 Content ABG Base Excess ABG Methemoglobin Gabe Test Hemoglobin Carboxyhemoglobin O2 Delivery Device Vent Setting Critical Value Sodium 144 Potassium 3.3 L Chloride 106 Carbon Dioxide 26.3 Anion Gap 12 BUN 46 H Creatinine 5.46 H Estimated GFR 8 L POC Glucose 133 H Random Glucose 123 H Calcium 7.8 L Magnesium Total Bilirubin 0.4 AST 63 H ALT 77 H Alkaline Phosphatase 102 Total Protein 6.6 Albumin 2.4 L Random Vancomycin 18.8 09/11/18 09/11/18 09/11/18 03:35 12:25 20:20 WBC RBC Hgb Hct MCV MCH MCHC RDW Plt Count MPV APTT 56.7 H Puncture Site Patient Temperature O2 Saturation ABG pH ABG pCO2 ABG pO2 ABG HCO3 ABG O2 Content ABG Base Excess ABG Methemoglobin Gabe Test Hemoglobin Carboxyhemoglobin O2 Delivery Device Vent Setting Critical Value Sodium Potassium Chloride Carbon Dioxide Anion Gap BUN Creatinine Estimated GFR POC Glucose 149 H 92 Random Glucose Calcium Magnesium Total Bilirubin AST ALT Alkaline Phosphatase Total Protein Albumin Random Vancomycin 09/11/18 09/12/18 09/12/18 23:26 04:00 04:00 WBC 9.4 RBC 4.02 Hgb 10.6 L Hct 32.1 L MCV 79.9 L MCH 26.3 L MCHC 32.9 RDW 17.4 H Plt Count 272 MPV 8.2 APTT Puncture Site Patient Temperature O2 Saturation ABG pH ABG pCO2 ABG pO2 ABG HCO3 ABG O2 Content ABG Base Excess ABG Methemoglobin Gabe Test Hemoglobin Carboxyhemoglobin O2 Delivery Device Vent Setting Critical Value Sodium 143 Potassium 3.5 Chloride 105 Carbon Dioxide 25.2 Anion Gap 13 BUN 54 H Creatinine 6.40 H Estimated GFR 7 L POC Glucose 122 H Random Glucose 122 H Calcium 8.4 L Magnesium 2.3 D Total Bilirubin 0.4 AST 34 ALT 64 H Alkaline Phosphatase 106 Total Protein 7.0 Albumin 2.5 L Random Vancomycin 09/12/18 09/12/18 09/12/18 04:00 09:59 14:47 WBC RBC Hgb Hct MCV MCH MCHC RDW Plt Count MPV APTT 62.2 H 39.9 H D 42.0 H Puncture Site Patient Temperature O2 Saturation ABG pH ABG pCO2 ABG pO2 ABG HCO3 ABG O2 Content ABG Base Excess ABG Methemoglobin Gabe Test Hemoglobin Carboxyhemoglobin O2 Delivery Device Vent Setting Critical Value Sodium Potassium Chloride Carbon Dioxide Anion Gap BUN Creatinine Estimated GFR POC Glucose Random Glucose Calcium Magnesium Total Bilirubin AST ALT Alkaline Phosphatase Total Protein Albumin Random Vancomycin 09/12/18 09/12/18 09/12/18 15:32 19:49 23:33 WBC RBC Hgb Hct MCV MCH MCHC RDW Plt Count MPV APTT Puncture Site Patient Temperature O2 Saturation ABG pH ABG pCO2 ABG pO2 ABG HCO3 ABG O2 Content ABG Base Excess ABG Methemoglobin Gabe Test Hemoglobin Carboxyhemoglobin O2 Delivery Device Vent Setting Critical Value Sodium Potassium Chloride Carbon Dioxide Anion Gap BUN Creatinine Estimated GFR POC Glucose 112 H 120 H 95 Random Glucose Calcium Magnesium Total Bilirubin AST ALT Alkaline Phosphatase Total Protein Albumin Random Vancomycin 09/13/18 09/13/18 09/13/18 03:05 03:09 03:09 WBC RBC Hgb Hct MCV MCH MCHC RDW Plt Count MPV APTT 40.9 H Puncture Site Patient Temperature O2 Saturation ABG pH ABG pCO2 ABG pO2 ABG HCO3 ABG O2 Content ABG Base Excess ABG Methemoglobin Gabe Test Hemoglobin Carboxyhemoglobin O2 Delivery Device Vent Setting Critical Value Sodium 142 Potassium 3.6 Chloride 103 Carbon Dioxide 26.0 Anion Gap 13 BUN 46 H Creatinine 5.41 H Estimated GFR 9 L POC Glucose 113 H Random Glucose 110 H Calcium 8.4 L Magnesium 2.3 Total Bilirubin 0.4 AST 27 ALT 50 Alkaline Phosphatase 105 Total Protein 7.3 Albumin 2.5 L Random Vancomycin 09/13/18 09/13/18 09/13/18 07:29 08:17 11:54 WBC 6.5 RBC 4.22 Hgb 11.1 L Hct 33.6 L MCV 79.6 L MCH 26.4 L MCHC 33.2 RDW 17.0 Plt Count 272 MPV 7.8 APTT Puncture Site Patient Temperature O2 Saturation ABG pH ABG pCO2 ABG pO2 ABG HCO3 ABG O2 Content ABG Base Excess ABG Methemoglobin Gabe Test Hemoglobin Carboxyhemoglobin O2 Delivery Device Vent Setting Critical Value Sodium Potassium Chloride Carbon Dioxide Anion Gap BUN Creatinine Estimated GFR POC Glucose 134 H 127 H Random Glucose Calcium Magnesium Total Bilirubin AST ALT Alkaline Phosphatase Total Protein Albumin Random Vancomycin 09/13/18 09/13/18 12:00 15:33 WBC RBC Hgb Hct MCV MCH MCHC RDW Plt Count MPV APTT Puncture Site Art line Patient Temperature 98.6 O2 Saturation 93 ABG pH 7.52 H* ABG pCO2 28 L ABG pO2 77 ABG HCO3 23 ABG O2 Content 13.6 ABG Base Excess 0.6 ABG Methemoglobin 1.8 Gabe Test Present Hemoglobin 10.3 L Carboxyhemoglobin 0.9 O2 Delivery Device Ventilator Vent Setting Critical Value Yes Sodium Potassium Chloride Carbon Dioxide Anion Gap BUN Creatinine Estimated GFR POC Glucose 118 H Random Glucose Calcium Magnesium Total Bilirubin AST ALT Alkaline Phosphatase Total Protein Albumin Random Vancomycin Result Diagrams: 09/13/18 07:29 09/13/18 03:09 Microbiology: Microbiology 09/09/18 00:30 Aerobic Blood Culture - Preliminary Blood - Peripheral No growth in 4 days Anaerobic Blood Culture - Preliminary No growth in 4 days 09/09/18 00:35 Aerobic Blood Culture - Preliminary Blood - Peripheral No growth in 4 days Anaerobic Blood Culture - Preliminary No growth in 4 days 09/09/18 00:37 Urine Culture - Final Clean Catch Urine No growth in 48 hours 09/09/18 09:15 Gram Stain - Final Sputum - Endotracheal Sputum Culture - Final No growth in 48 hours Imaging: Abdomen Ultrasound 09/09/18 00:00 CONCLUSION: 1. Enlarged echogenic liver suggesting fatty infiltration 2. , Gallbladder not visualized Chest CTA 09/09/18 00:00 CONCLUSION: 1. Very limited examination due to patient body habitus. 2. Elongated filling defect in the right pulmonary artery suspicious for pulmonary embolus. Prominent artifact related to patient body habitus is seen through out the central pulmonary arteries limiting the evaluation. The segmental and subsegmental branches cannot be effectively evaluated on this study. Nuclear medicine VQ scan could be performed for further evaluation. 3. Moderate diffuse cardiomegaly. 4. Moderate-sized area of right lower lobe pulmonary consolidation. 5. Bilateral dependent lower lobe atelectasis. Head CT 09/09/18 00:00 CONCLUSION: No acute intracranial findings. . Venous Doppler Study 09/09/18 00:00 CONCLUSION: 1. Negative exam with no evidence of deep venous thrombosis. Chest X-Ray 09/13/18 06:00 CONCLUSION: Worsening diffuse consolidation likely related to diffuse edema. Enlargement of the cardiac silhouette.. Procedures: * 09/12/18 - a line, vas-cath placement, HD started * 09/08/18 - intubated Assessment and Plan - Disease Oriented Problem List (1) Acute kidney failure (2) Respiratory failure (3) Obesity (4) Pulmonary embolism Pertinent Non-Medical Issues: Psychosocial: . 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 Has 1 daughter, Avelina. Spiritual: Anabaptist valerie. Legal: No known written advance directives. Patient is not capacitated to make her own health care decisions at this time. According to [place] Statutes, health care proxy decision making falls to her spouse. Ethical issues impacting care: No known concerns at this time. Important Contacts: * Chelsea Boles, spouse: [phone] * Avelina Hadley, daughter: [phone] Prognosis: Mrs. Hadley is a 47 year old chronically, critically ill patient with multiple comorbidities now with respiratory, renal and heart failure. Overall prognosis appears poor. Code Status: Full Code Plan: * Decision maker: Patient is not capacitated to make her own health care decisions, uncertain if she will regain capacity. No known written advance directives. According to [place] Statutes, health care proxy decision making falls to her spouse. * FULL CODE * Family desires continued aggressive care including FULL CODE. * SYMPTOMS: Pain: asleep during my visit. Pain secondary to tubes, bedbound status, multiorgan failure. Dyspnea:on mech vent. No new medication recommendations at this time. * Palliative care will continue to follow to assist with symptom management and further clarification of goals of medical treatment as needed. . Attestation Attestation: To help prompt me to consider important information that might be impacting today's encounter and assessment, information from prior notes written by myself or my colleagues may have been "brought forward" into today's note. My signature on this note, however, is an attestation that I personally performed the exam, history, and/or decision-making noted today, and, unless otherwise indicated, the interactions with patient, family, and staff as well as the review of records all occurred today. I also attest that the listed assessment and stated plan reflect my best clinical judgment today based on the combination of historical information, prior notes, and today's exam/ interactions. When time spent is documented, it refers only to time spent today by the signer, or if indicated, combined time spent today by collaborating physician/nurse practitioner.
[2018-09-14] MEDS: Oral Hygiene Kit OROPHARYNG SCH ×4 (00:30→15:57)
[2018-09-14] MEDS: Morphine Sulfate Inj 2 MG/ML Vial IV.PUSH PRN (00:45)
[2018-09-14] MEDS ORDERED: HYDROmorphone PF Inj 2 MG/ML Vial IV.PUSH ONE (01:08)
[2018-09-14] MEDS: Insulin NovoLIN Regular Correctional Sugar Inj SQ SCH ×6 (01:36→20:00)
[2018-09-14] MEDS: fentaNYL 10 mcg/mL Premix Drip 2,500 MCG/250 ML BAG IV.SIG PRN (01:41)
[2018-09-14] MEDS: Propofol 1000 mg/100 ml Inj 1,000 MG/100 ML BOTTLE IV.CONT PRN ×3 (03:08→20:39)
--- NOTE | 2018-09-14 04:11 | XR ---
EXAM DATE: 09/14/2018 3:47 AM EST AGE/SEX: 47 years / Female INDICATIONS: Shortness of breath, possible pulmonary disease. CLINICAL DATA: This is the patient's subsequent encounter. Patient reports that signs and symptoms h ave been present for 4 - 6 days and indicates a pain score of Nonresponsive. MEDICAL/SURGICAL HISTORY: Congestive heart failure. Non-responsive. COMPARISON: C, CHEST 1V SINGLE AP, 09/13/2018. C, CHEST 1V SINGLE AP, 09/12/2018. . FINDINGS: The ET tube, NG tube and right internal jugular central line are well placed. The cardiac silhouette is enlarged. This increased density in the perihilar regions especially on the left. CONCLUSION: Enlargement of cardiac silhouette. Hazy density in the perihilar regions likely related to edema. Electronically signed by: Dillan Kelley MD Board Certified Radiologist 09/14/2018 4:10 AM EST
[2018-09-14] MEDS: Piperacil/Tazo 2.25 GM Premix 50 ML IV.SIG SCH ×4 (05:13→22:10)
[2018-09-14 06:06] LABS: Hematocrit 31.9 % (35.0-46.0); Hemoglobin 10.3 gm/dL (11.6-15.3); Mean Corpuscular HGB Conc 32.4 % (32.0-36.0); Mean Corpuscular Hemoglobin 26.2 pg (27.0-34.0); Mean Corpuscular Volume 80.8 fL (80.0-100.0); Mean Platelet Volume 8.3 fL (7.0-11.0); Platelet Count 310 th/mm3 (150-450); Red Blood Count 3.94 mil/mm3 (4.00-5.30); Red Cell Distribution Width 17.1 % (11.6-17.2); White Blood Count 9.6 th/mm3 (4.0-11.0)
[2018-09-14 06:37] LABS: Alanine Aminotransferase 41 U/L (10-53); Albumin 3.3 g/dL (3.4-5.0); Alkaline Phosphatase 104 U/L (45-117); Anion Gap 13 meq/L (5-15); Aspartate Aminotransferase 27 U/L (15-37); Blood Urea Nitrogen 31 mg/dL (7-18); Carbon Dioxide 27.6 meq/L (21.0-32.0); Chloride 100 meq/L (98-107); Glomerular Filtration Rate 10 mL/min (>89); Glucose,Random 156 mg/dL (74-106); Magnesium 2.3 mg/dL (1.5-2.5); Potassium 3.6 meq/L (3.5-5.1); Sodium 141 meq/L (136-145); Total Protein 8.4 g/dL (6.4-8.2)
[2018-09-14] MEDS: Chlorhexidine 0.12% Oral Kit 15 ML UDC OROPHARYNG SCH ×2 (08:25→20:55)
[2018-09-14] MEDS: Famotidine PF Inj 20 MG/2 ML Vial IV.PUSH SCH ×2 (08:25→20:40)
[2018-09-14] MEDS: Senna/Docusate Sodium 8.6/50 MG Tablet PO SCH ×2 (08:26→20:40)
--- NOTE | 2018-09-14 10:47 | P.PNNP ---
Subjective Interval history: Patient remain on the vent. and sedated. Physical Exam Vital signs: Vital Signs 09/13/18 11:00 09/13/18 12:00 09/13/18 12:05 Temperature 98.2 F Pulse Rate 78 85 82 Respiratory Rate 20 20 Blood Pressure 93/53 L 99/56 L Pulse Oximetry 97 09/13/18 14:00 09/13/18 14:28 09/13/18 16:00 Temperature 98.6 F Pulse Rate 89 92 H Respiratory Rate 20 16 Blood Pressure 89/50 L Pulse Oximetry 98 09/13/18 18:00 09/13/18 19:00 09/13/18 19:01 Temperature Pulse Rate 101 H 107 H 107 H Respiratory Rate Blood Pressure 121/64 Pulse Oximetry 100 100 09/13/18 19:20 09/13/18 19:30 09/13/18 20:00 Temperature Pulse Rate 108 H 85 Respiratory Rate 22 Blood Pressure 101/54 L 99/56 L Pulse Oximetry 96 98 96 09/13/18 20:30 09/13/18 21:00 09/13/18 21:30 Temperature Pulse Rate 109 H 106 H 108 H Respiratory Rate Blood Pressure 100/58 L 101/52 L 100/52 L Pulse Oximetry 98 96 99 09/13/18 22:00 09/13/18 22:18 09/13/18 23:00 Temperature Pulse Rate 105 H 104 H 107 H Respiratory Rate Blood Pressure 92/51 L Pulse Oximetry 100 100 100 09/13/18 23:35 09/14/18 00:00 09/14/18 01:00 Temperature Pulse Rate 104 H 115 H Respiratory Rate 22 Blood Pressure 93/53 L Pulse Oximetry 100 99 92 L 09/14/18 02:00 09/14/18 03:00 09/14/18 03:20 Temperature Pulse Rate 119 H 108 H Respiratory Rate 24 Blood Pressure Pulse Oximetry 93 L 93 L 94 L 09/14/18 03:26 09/14/18 03:29 09/14/18 03:34 Temperature Pulse Rate 103 H 103 H 103 H Respiratory Rate Blood Pressure 78/45 L 73/42 L Pulse Oximetry 94 L 94 L 95 09/14/18 04:00 09/14/18 04:30 09/14/18 05:00 Temperature Pulse Rate 85 104 H 104 H Respiratory Rate 22 Blood Pressure 99/56 L 84/49 L 84/48 L Pulse Oximetry 96 95 96 09/14/18 05:30 09/14/18 06:00 09/14/18 07:32 Temperature Pulse Rate 101 H 101 H Respiratory Rate 23 Blood Pressure 89/52 L Pulse Oximetry 95 96 09/14/18 10:07 Temperature Pulse Rate Respiratory Rate 3 L Blood Pressure Pulse Oximetry 93 L Intake & Output 09/13/18 09/14/18 09/14/18 18:59 06:59 18:59 Intake Total 1472 / 1472 724 / 724 50 / 50 Output Total 4850 / 4850 300 / 300 Balance -3378 / -3378 424 / 424 50 / 50 Weight 156.6 kg Intake: IV 900 / 900 250 / 250 50 / 50 Bumex Inj 25 mg In 100 ml @ 0.5 100 / 100 MG/HR 2 mls/hr IV.CONT .Q24H [facility] Rx#:[id number] Primacor Inj 20 MG In NS Inj 80 100 / 100 ML @ Per Protocol IV.CONT .Q0M [facility] Rx#:[id number] Diprivan 1000 mg/100 ml Inj 1, 500 / 500 100 / 100 000 mg In 100 ml @ 5 MCG/KG/MIN 6.804 mls/hr IV.CONT TITRATE PRN Rx#:[id number] Flexbumin 25% Inj 100 ML @ 60 200 / 200 mls/hr IV.SIG WITH DIALYSIS PRN Rx#:[id number] Zosyn 2.25 GM Premix 50 ML @ 100 / 100 50 / 50 50 / 50 100 mls/hr IV.SIG Q6H [facility] Rx#: [id number] Tube Feeding 522 / 522 424 / 424 Water Bolus Amount 50 / 50 50 / 50 Output: Hemodialysis Amount 4000 / 4000 Urine Amount (Catheter) 850 / 850 300 / 300 Indwelling Urethral Catheter 850 / 850 300 / 300 Other: Date of Last Bowel Movement 09/13/18 09/13/18 09/14/18 # Bowel Movements 1 # Incontinent Bowel Movements 2 1 Narrative: Intubated, sedated Lungs with decreased BS Cor reg Abd morbidly obese, soft Bilat LE edema Neuro grossly intact. - Urinary Catheter Management Indwelling Urethral Catheter Cath placed during this visit: yes Reason for continuing: Hourly intake/output Insertion date: 09/08/18 Insertion time: 22:52 Assessment and Plan - Assessment (1) Acute kidney failure Code(s): N17.9 - Acute kidney failure, unspecified Status: Acute Plan: Baseline renal function is not known. May have renal hypoperfusion. Could have developed contrast nephropathy after CTA. Clinically she appears to fluid overloaded. Patient on Bumex drip, continues to have good urine output via steele cath. Patient had right IJ hemodialysis catheter placement and patient last dialyzed yesterday. Creatinine slightly improved and is 4.7 today. Watch for renal recovery , next HD possibly on Sunday. (2) Respiratory failure Code(s): J96.90 - Respiratory failure, unspecified, unspecified whether with hypoxia or hypercapnia Status: Acute Plan: Patient orally intubated. (3) Obesity Code(s): E66.9 - Obesity, unspecified Status: Acute Plan: patient has obesity-hypoventilation syndrome. (4) Pulmonary embolism Code(s): I26.99 - Other pulmonary embolism without acute cor pulmonale Status : Acute Plan: On Heparin.
--- NOTE | 2018-09-14 10:53 | P.PNCC ---
Subjective Subjective Remarks/Hospital Course: Middle-aged morbidly obese female was brought in emergently department by EMS due to respiratory failure and unresponsiveness. She was brought in being bagged by BV. Patient was a GCS of 3 upon arrival and hence in no condition to give any history. As per EMS the call went out as shortness of breath while patient got into the car. When they arrived she was in severe respiratory distress. They put her on BiPAP but shortly patient started to lose consciousness with agonal respirations. Family was at the scene and informed EMS that she has history of congestive heart failure. Patient was tachycardic upon arrival with heart rate in 170s. It appeared to be irregularly irregular on the monitor. She was immediately intubated by ED attending with improvement in her heart rate. There is no additional history available. Per report, the family admits the patient has been taking a lot of medications but they are unaware of the names or reasons. 09/10 Patient remains sedated with Diprivan and intubated. Renal function is worsening with Cr: 4.02 from 2.60. Afebrile. On Heparin drip. 09/11: Patient remains intubated sedated critically ill. Urine output has improved with Bumex infusion however creatinine has worsened from 4-5.5 today. D/W with nephrology-no acute indication for dialysis however considering creatinine worsening, will reduce Bumex infusion 0.5 mg/h. Chest x-ray is pending at this time 09/12: Remains intubated sedated with propofol however wakes up and follows commands. Creatinine worsening 6.5 today. Even though her urine output has improved on Bumex infusion 3 L in 24 hours, patient has increasing pulmonary vascular congestion and pulmonary edema. Discussed with nephrology. Will place hemodialysis catheter and start dialysis today for fluid removal. 09/13: Remains intubated sedated with propofol, started on hemodialysis yesterday achieving negative balance. However pulmonary edema persistent. Wakes up to command weakly follows. Creatinine slightly improved with dialysis. Urine output 1.8 L in 24 hours 09/14: Patient sedated on fentanyl and propofol infusions. Cardiac index now 2.8, the patient continues on milrinone. Chest x-ray reveals pulmonary edema, patient was dialyzed 4 L removed yesterday and urine output 1150 in the last 24 hours. Objective Vital Signs / I&O: Vital Signs 09/13/18 11:00 09/13/18 12:00 09/13/18 12:05 Temperature 98.2 F Pulse Rate 78 85 82 Respiratory Rate 20 20 Blood Pressure 93/53 L 99/56 L Pulse Oximetry 97 09/13/18 14:00 09/13/18 14:28 09/13/18 16:00 Temperature 98.6 F Pulse Rate 89 92 H Respiratory Rate 20 16 Blood Pressure 89/50 L Pulse Oximetry 98 09/13/18 18:00 09/13/18 19:00 09/13/18 19:01 Temperature Pulse Rate 101 H 107 H 107 H Respiratory Rate Blood Pressure 121/64 Pulse Oximetry 100 100 09/13/18 19:20 09/13/18 19:30 09/13/18 20:00 Temperature Pulse Rate 108 H 85 Respiratory Rate 22 Blood Pressure 101/54 L 99/56 L Pulse Oximetry 96 98 96 09/13/18 20:30 09/13/18 21:00 09/13/18 21:30 Temperature Pulse Rate 109 H 106 H 108 H Respiratory Rate Blood Pressure 100/58 L 101/52 L 100/52 L Pulse Oximetry 98 96 99 09/13/18 22:00 09/13/18 22:18 09/13/18 23:00 Temperature Pulse Rate 105 H 104 H 107 H Respiratory Rate Blood Pressure 92/51 L Pulse Oximetry 100 100 100 09/13/18 23:35 09/14/18 00:00 09/14/18 01:00 Temperature Pulse Rate 104 H 115 H Respiratory Rate 22 Blood Pressure 93/53 L Pulse Oximetry 100 99 92 L 09/14/18 02:00 09/14/18 03:00 09/14/18 03:20 Temperature Pulse Rate 119 H 108 H Respiratory Rate 24 Blood Pressure Pulse Oximetry 93 L 93 L 94 L 09/14/18 03:26 09/14/18 03:29 09/14/18 03:34 Temperature Pulse Rate 103 H 103 H 103 H Respiratory Rate Blood Pressure 78/45 L 73/42 L Pulse Oximetry 94 L 94 L 95 09/14/18 04:00 09/14/18 04:30 09/14/18 05:00 Temperature Pulse Rate 85 104 H 104 H Respiratory Rate 22 Blood Pressure 99/56 L 84/49 L 84/48 L Pulse Oximetry 96 95 96 09/14/18 05:30 09/14/18 06:00 09/14/18 07:32 Temperature Pulse Rate 101 H 101 H Respiratory Rate 23 Blood Pressure 89/52 L Pulse Oximetry 95 96 09/14/18 10:07 Temperature Pulse Rate Respiratory Rate 3 L Blood Pressure Pulse Oximetry 93 L Intake & Output 09/13/18 09/14/18 09/14/18 18:59 06:59 18:59 Intake Total 1472 / 1472 724 / 724 50 / 50 Output Total 4850 / 4850 300 / 300 Balance -3378 / -3378 424 / 424 50 / 50 Weight 156.6 kg Intake: IV 900 / 900 250 / 250 50 / 50 Bumex Inj 25 mg In 100 ml @ 0.5 100 / 100 MG/HR 2 mls/hr IV.CONT .Q24H [facility] Rx#:[id number] Primacor Inj 20 MG In NS Inj 80 100 / 100 ML @ Per Protocol IV.CONT .Q0M [facility] Rx#:[id number] Diprivan 1000 mg/100 ml Inj 1, 500 / 500 100 / 100 000 mg In 100 ml @ 5 MCG/KG/MIN 6.804 mls/hr IV.CONT TITRATE PRN Rx#:[id number] Flexbumin 25% Inj 100 ML @ 60 200 / 200 mls/hr IV.SIG WITH DIALYSIS PRN Rx#:[id number] Zosyn 2.25 GM Premix 50 ML @ 100 / 100 50 / 50 50 / 50 100 mls/hr IV.SIG Q6H [facility] Rx#: [id number] Tube Feeding 522 / 522 424 / 424 Water Bolus Amount 50 / 50 50 / 50 Output: Hemodialysis Amount 4000 / 4000 Urine Amount (Catheter) 850 / 850 300 / 300 Indwelling Urethral Catheter 850 / 850 300 / 300 Other: Date of Last Bowel Movement 09/13/18 09/13/18 09/14/18 # Bowel Movements 1 # Incontinent Bowel Movements 2 1 Result Diagrams: 09/14/18 03:30 09/14/18 03:30 Other Results: Laboratory Results WBC 9.6 th/mm3 (4.0-11.0) 09/14/18 03:30 RBC 3.94 mil/mm3 (4.00-5.30) L 09/14/18 03:30 Hgb 10.3 gm/dL (11.6-15.3) L 09/14/18 03:30 Hct 31.9 % (35.0-46.0) L 09/14/18 03:30 MCV 80.8 fL (80.0-100.0) 09/14/18 03:30 MCH 26.2 pg (27.0-34.0) L 09/14/18 03:30 MCHC 32.4 % (32.0-36.0) 09/14/18 03:30 RDW 17.1 % (11.6-17.2) 09/14/18 03:30 Plt Count 310 th/mm3 (150-450) 09/14/18 03:30 MPV 8.3 fL (7.0-11.0) 09/14/18 03:30 Neut % (Auto) 49.2 % (16.0-70.0) 09/10/18 04:05 Lymph % (Auto) 36.4 % (9.0-44.0) 09/10/18 04:05 [place] % (Auto) 10.3 % (0.0-8.0) H 09/10/18 04:05 Eos % (Auto) 3.5 % (0.0-4.0) 09/10/18 04:05 Baso % (Auto) 0.6 % (0.0-2.0) 09/10/18 04:05 Neut # (Auto) 3.1 th/mm3 (1.8-7.7) 09/10/18 04:05 Lymph # (Auto) 2.3 th/mm3 (1.0-4.8) 09/10/18 04:05 [place] # (Auto) 0.6 th/mm3 (0.0-0.9) 09/10/18 04:05 Eos # (Auto) 0.2 th/mm3 (0.0-0.4) 09/10/18 04:05 Baso # (Auto) 0.0 th/mm3 (0.0-0.2) 09/10/18 04:05 WBC Differential . 09/10/18 04:05 Differential Comment Auto diff final 09/10/18 04:05 PT 10.8 sec (9.8-11.6) 09/10/18 04:05 INR 1.1 Ratio 09/10/18 04:05 APTT 37.5 sec (23.4-31.7) H 09/14/18 08:09 Puncture Site Art line 09/13/18 12:00 Patient Temperature 98.6 09/13/18 12:00 O2 Saturation 93 % (90-100) 09/13/18 12:00 ABG pH 7.52 (7.380-7.420) H* 09/13/18 12:00 ABG pCO2 28 mmHg (38-42) L 09/13/18 12:00 ABG pO2 77 mmHG (61-120) 09/13/18 12:00 ABG HCO3 23 mmol/L (22-26) 09/13/18 12:00 ABG O2 Content 13.6 Vol % (12.0-20.0) 09/13/18 12:00 ABG Base Excess 0.6 mmol/L (-2-2) 09/13/18 12:00 ABG Methemoglobin 1.8 % (0-2) 09/13/18 12:00 Gabe Test Present 09/13/18 12:00 Hemoglobin 10.3 G/DL (12.0-16.0) L 09/13/18 12:00 Carboxyhemoglobin 0.9 % (0-4) 09/13/18 12:00 O2 Delivery Device Ventilator 09/13/18 12:00 Vent Setting 09/13/18 12:00 Inspired O2 40 % 09/10/18 09:25 Critical Value Yes 09/13/18 12:00 Sodium 141 meq/L (136-145) 09/14/18 03:30 Potassium 3.6 meq/L (3.5-5.1) 09/14/18 03:30 Chloride 100 meq/L (98-107) 09/14/18 03:30 Carbon Dioxide 27.6 meq/L (21.0-32.0) 09/14/18 03:30 Anion Gap 13 meq/L (5-15) 09/14/18 03:30 BUN 31 mg/dL (7-18) H 09/14/18 03:30 Creatinine 4.71 mg/dL (0.50-1.00) H 09/14/18 03:30 Estimated GFR 10 mL/min (>89) L 09/14/18 03:30 POC Glucose 102 mg/dl (68-110) 09/14/18 08:14 Random Glucose 156 mg/dL (74-106) H 09/14/18 03:30 Calcium 9.0 mg/dL (8.5-10.1) 09/14/18 03:30 Phosphorus 4.6 mg/dL (2.5-4.9) D 09/10/18 04:05 Magnesium 2.3 mg/dL (1.5-2.5) 09/14/18 03:30 Total Bilirubin 0.4 mg/dL (0.2-1.0) 09/14/18 03:30 AST 27 U/L (15-37) 09/14/18 03:30 ALT 41 U/L (10-53) 09/14/18 03:30 Alkaline Phosphatase 104 U/L (45-117) 09/14/18 03:30 Ammonia 77 mcmol/L (11-32) H 09/09/18 00:33 Troponin I 0.38 ng/mL (0.02-0.05) H 09/09/18 12:08 Total Protein 8.4 g/dL (6.4-8.2) H D 09/14/18 03:30 Albumin 3.3 g/dL (3.4-5.0) L D 09/14/18 03:30 Urine Color Yellow (Yellw/Straw) 09/09/18 00:37 Urine Clarity Clear (Clear) 09/09/18 00:37 Urine pH 5.0 (5.0-8.5) 09/09/18 00:37 Ur Specific [place] 1.016 (1.002-1.035) 09/09/18 00:37 Urine Protein 100 mg/dL (Neg-Trace) H 09/09/18 00:37 Urine Glucose (UA) Negative mg/dL (Negative) 09/09/18 00:37 Urine Ketones Negative mg/dL (Negative) 09/09/18 00:37 Urine Occult Blood Negative (Negative) 09/09/18 00:37 Urine Nitrate Negative (Negative) 09/09/18 00:37 Urine Bilirubin Negative (Negative) 09/09/18 00:37 Urine Urobilinogen Less than 2 mg/dL (Less than 2) 09/09/18 00:37 Ur Leukocyte Esterase Negative (Negative) 12/10/18 00:37 Urine RBC 1 /hpf (0-3) 09/09/18 00:37 Urine WBC 1 /hpf (0-5) 09/09/18 00:37 Ur Squamous Epith Cells 1 /hpf (0-5) 09/09/18 00:37 Urine Bacteria Rare /hpf (None) H 09/09/18 00:37 Micro UA Comment Cath-culture ind 09/09/18 00:37 Ur Microscopic Review Not Reportable 09/09/18 00:37 Urine Culture Comments Cath-cult indicated 09/09/18 00:37 Nasal Screen MRSA (PCR) Mrsa detected (Negative) 09/09/18 01:30 Random Vancomycin 18.8 Comment 09/11/18 03:35 Urine Opiates Screen Neg (Neg) 09/09/18 00:37 Ur Barbiturates Screen Neg (Neg) 09/09/18 00:37 Ur Amphetamines Screen Neg (Neg) 09/09/18 00:37 U Benzodiazepines Scrn Neg (Neg) 09/09/18 00:37 Urine Cocaine Screen Pos (Neg) H 09/09/18 00:37 U Cannabinoids Screen Neg (Neg) 09/09/18 00:37 Hepatitis A IgM Ab Nonreactive (Nonreactive) 09/09/18 10:35 Hep Bs Antigen Nonreactive (Nonreactive) 09/09/18 10:35 Hep B Core IgM Ab Nonreactive (Nonreactive) 09/09/18 10:35 Hep C IgG Ab Nonreactive (Nonreactive) 09/09/18 10:35 Blood Type AB Positive 09/09/18 00:30 Antibody Screen Negative 09/09/18 00:30 Impressions Abdomen Ultrasound 09/09/18 00:00 CONCLUSION: 1. Enlarged echogenic liver suggesting fatty infiltration 2. , Gallbladder not visualized Chest CTA 09/09/18 00:00 CONCLUSION: 1. Very limited examination due to patient body habitus. 2. Elongated filling defect in the right pulmonary artery suspicious for pulmonary embolus. Prominent artifact related to patient body habitus is seen through out the central pulmonary arteries limiting the evaluation. The segmental and subsegmental branches cannot be effectively evaluated on this study. Nuclear medicine VQ scan could be performed for further evaluation. 3. Moderate diffuse cardiomegaly. 4. Moderate-sized area of right lower lobe pulmonary consolidation. 5. Bilateral dependent lower lobe atelectasis. Head CT 09/09/18 00:00 CONCLUSION: No acute intracranial findings. . Venous Doppler Study 09/09/18 00:00 CONCLUSION: 1. Negative exam with no evidence of deep venous thrombosis. Chest X-Ray 09/14/18 06:00 CONCLUSION: Enlargement of cardiac silhouette. Hazy density in the perihilar regions likely related to edema. Objective Remarks: GENERAL: Patient is 47 yo intubated and sedated morbidly obese -[place] female SKIN: Warm and dry. HEAD: Normocephalic. EYES: No scleral icterus. No injection or drainage. NECK: Supple, trachea midline. Unable to appreciate JVD due to body habitus CARDIOVASCULAR: Regular rate and rhythm without murmurs, gallops, or rubs. Remains on IV heparin RESPIRATORY: Breath sounds equal bilaterally. Air entry diminished at the bases. Noted expiratory wheezing GASTROINTESTINAL: Abdomen soft, obese ,non-tender, nondistended. MUSCULOSKELETAL: No cyanosis, + edema. Neuro: Sedated, intubated. Wakes up easily understands conversation. Moves extremities purposefully. Weakly follows commands Assessment and Plan - Assessment and Plan Plan: ASSESSMENT: Acute hypoxemic respiratory failure Acute systolic heart failure Severe pulmonary edema Probable pneumonia Sepsis Acute kidney failure Acute pulmonary embolism Obesity hypoventilation syndrome Mild elevated trop Leukocytosis..trending down Elevated AST Morbid obesity PLAN: Neuro: On Diprivan and fentanyl infusion for sedation, continue daily sedation vacation. CT brain: No acute intracranial findings GCS 11 T off sedation-communicates by writing Pulm: Continue with vent support keep sats >92% Bronchodilators, ICU vent bundle. SBT once pulmonary edema is improved CTA chest: Very limited examination due to patient body habitus. Elongated filling defect in the right pulmonary artery suspicious for PE. Moderate-sized area of right lower lobe pulmonary consolidation. Bilateral dependent lower lobe atelectasis. CXR -pulm edema Continue Heparin drip. Monitor PTT per protocol. Broad-spectrum antibiotics with Zosyn, discontinued on vancomycin 09/11 CV: Monitor HR and BP keep MAP>65mmHg Echo 09/09: Technically difficult study making assessment of left ventricular function and wall motion. Suboptimal. Grossly, left ventricular function appears severely reduced. probable global hypokinesis. Cards Dr. Law following Continue fluid removal with hemodialysis started 09/12/2018, and IV Bumex GTT : Monitor renal function, I/O's, avoid nephrotoxins Renal function worse slightly improved with dialysis 5.4 today. Urine output 1.1 L in 24 hours. Last Hemodialysis started 09/13 4 L removed Renal is following Dr. Majano, continue Bumex drip 0.5 mg/hr. US abdomen: No masses or hydronephrosis, enlarged liver likely due to fatty infiltration. GI: On Pepcid for GI prophylaxis, tube feeds Nepro with goal rate 50ml/hr. BM ID: Continue abx (continue Zosyn, discontinued vancomycin 09/11/2018) monitor for signs of infections ( fever, WBC) Strep pneumonia and Legionella urinary Ag negative 09/09 Blood, sputum and urine cx: All negative to date Heme: Monitor CBC, coags- on Heparin drip. Endo: SSI with accuchecks for glycemic control DVT GI prophylaxis -SCDs -Heparin drip -Pepcid My billing statement This patient remains critically ill with one or more organ systems which are or may become a threat to life. I have spent in excess of 37 minutes discontinuously in the care and management of this patient. This time is exclusive of procedures, and includes, but is not limited to, evaluation of the patient, review of the medical record, discussions with family, consultants, nursing staff, or respiratory therapy, and documentation in the medical record. Patient is severely ill critical with multiorgan failure. She has multiple organs involved with respiratory failure heart failure renal failure and sepsis. Prognosis is guarded at this time. Code Status: Full Discussed Condition With: Daughter and ASSISTANT ART DIRECTOR at bedside
[2018-09-14] MEDS: Bumetanide Inj 25 MG/100 ML BAG IV.CONT SCH (13:21)
--- NOTE | 2018-09-14 15:14 | P.PNCA ---
Subjective Interval history: Patient remains intubated and sedated at this time. VS are stable on monitor. Medications and Allergies Allergies Allergy/AdvReac Type Severity Reaction Status Date / Time No Allergy Information Allergy Unverified 09/08/18 22:46 Available Home Medications Medication Instructions Recorded Confirmed Type allopurinol 100 mg PO DAILY 09/11/18 09/11/18 History cyclobenzaprine 5 mg PO TID 09/11/18 09/11/18 History furosemide 40 mg PO DAILY 09/11/18 09/11/18 History hydralazine 50 mg PO Q8HR 09/11/18 09/11/18 History insulin detemir U-100 [Levemir 24 unit SUBCUT Q12HR 09/11/18 09/11/18 History U-100 Insulin] insulin regular human [Novolin R 1 sliding scale dose SUBCUT UD 09/11/18 History Regular U-100 Insuln] levothyroxine 50 mcg PO DAILY 09/11/18 09/11/18 History meloxicam DAILY 09/11/18 History potassium chloride 20 meq PO DAILY 09/11/18 09/11/18 History pravastatin 40 mg PO HS 09/11/18 09/11/18 History pregabalin [Lyrica] 50 mg PO BID 09/11/18 09/11/18 History sertraline 50 mg PO HS 09/11/18 09/11/18 History tramadol 50 mg PO Q6H PRN 09/11/18 09/11/18 History Active Medications: Active Medications Acetaminophen (Tylenol) 650 mg PO Q6H PRN PRN Reason: PAIN 1-10 AND/OR FEVER >101F Acetaminophen (Tylenol) 650 mg PO UNSCH PRN PRN Reason: SEE LABEL COMMENTS Al Hydroxide/Mg Hydroxide (Milk Of Marai Eugenia Liq) 30 ml PO Q12H PRN PRN Reason: Mild Constipation Albuterol (Duoneb Neb (Prn)) 1 ampul NEB Q2HR NEB PRN PRN Reason: WHEEZING Last Admin: 09/14/18 10:45 Dose: 1 ampul Albuterol (Duoneb Neb (Marshall)) 1 ampul NEB Q4HR NEB [facility] Bisacodyl (Dulcolax Supp) 10 mg RECTAL DAILY PRN PRN Reason: SEVERE CONSITIPATION Chlorhexidine Gluconate (Peridex 0.12% Oral Kit) 15 ml OROPHARYNG BID@0800, 2000 [facility] Last Admin: 09/14/18 08:25 Dose: 15 ml Clonidine HCl (Catapres) 0.1 mg PO UNSCH PRN PRN Reason: SEE LABEL COMMENTS Cyclobenzaprine HCl (Flexeril) 10 mg PO Q8H PRN PRN Reason: SPASM Last Admin: 09/14/18 08:31 Dose: 10 mg Dextrose (D50w Vial) 50 ml IV.PUSH UNSCH PRN PRN Reason: PER HYPOGLYCEMIA PROTOCOL Diphenhydramine HCl (Benadryl) 25 mg PO UNSCH PRN PRN Reason: SEE LABEL COMMENTS Famotidine (Pepcid Pf Inj) 10 mg IV.PUSH Q12HR [facility] Last Admin: 09/14/18 08:25 Dose: 10 mg Gelatin (Gelfoam 12 Mm/7 Mm Topical) 1 foam TOPICAL PRN PRN PRN Reason: help stop bleeding from site Gentamicin Sulfate (Gentamicin Inj) 20 mg OTHER WITH DIALYSIS PRN PRN Reason: Dwell Gentamycin Lock Last Admin: 09/13/18 15:07 Dose: 20 mg Glucagon (Glucagon Inj) 1 mg OTHER PRN PRN PRN Reason: for Hypoglycemia Protocol Heparin Sodium (Porcine) (Heparin Inj) 8,000 units OTHER WITH DIALYSIS PRN PRN Reason: for machine prime Heparin Sodium (Porcine) (Heparin Inj) 1,000 units OTHER WITH DIALYSIS PRN PRN Reason: Dwell Heparin to Fill Catheter Propofol (Diprivan 1000 Mg/100 Ml Inj) 1,000 mg in 100 mls @ 6.804 mls/hr IV.CONT TITRATE PRN; Protocol PRN Reason: Per Protocol Last Admin: 09/14/18 11:50 Dose: 15 mcg/kg/min, 20.41 mls/hr Diltiazem HCl 125 mg/ Sodium (Chloride) 125 mls @ 5 mls/hr IV.CONT TITRATE PRN ; Protocol PRN Reason: Per Protocol Last Titration: 09/11/18 19:00 Dose: Infused Heparin Sodium/Dextrose (Heparin/D5w 25,000 U/250 Ml) 25,000 unit in 250 mls @ 0 mls/hr IV.CONT TITRATE PRN; Protocol PRN Reason: Per Protocol Last Titration: 09/14/18 09:32 Dose: 1,400 units/hr, 14 mls/hr Piperacillin/Tazobactam/Dextrose (Zosyn 2.25 Gm Premix) 50 mls @ 100 mls/hr IV.SIG Q6H [facility] Last Infusion: 09/14/18 10:48 Dose: Infused Bumetanide (Bumex Inj) 25 mg in 100 mls @ 2 mls/hr IV.CONT .Q24H [facility] Last Admin: 09/14/18 13:21 Dose: Not Given Albumin Human (Flexbumin 25% Inj) 100 mls @ 60 mls/hr IV.SIG WITH DIALYSIS PRN PRN Reason: hypotension / volume replace Last Infusion: 09/13/18 16:50 Dose: Infused Sodium Chloride (Ns Inj) 1,000 mls @ 0 mls/hr OTHER .Q0M PRN PRN Reason: for prime and rinse back Sodium Chloride (Ns Inj) 1,000 mls @ 200 mls/hr OTHER .Q5H PRN PRN Reason: for dialyzer flush PRN Sodium Chloride (Ns Inj) 1,000 mls @ 0 mls/hr IV.CONT .Q0M PRN PRN Reason: hypotension / volume replace Milrinone Lactate 20 mg/ (Sodium Chloride) 100 mls @ 0 mls/hr IV.CONT .Q0M [facility] ; Protocol Last Admin: 09/13/18 20:49 Dose: 0.2 mcg/kg/min, 9.26 mls/hr Fentanyl (Fentanyl 10 Mcg/Ml Premix Drip) 2,500 mcg in 250 mls @ 5 mls/hr IV.SIG TITRATE PRN; Protocol PRN Reason: Per Protocol Last Titration: 09/14/18 10:49 Dose: 50 mcg/hr, 5 mls/hr Insulin Human Regular (Novolin R Correctional Sugar Inj) 0 units SQ Q4HR [facility]; Protocol Last Admin: 09/14/18 11:52 Dose: Not Given Lactulose (Lactulose Liq) 30 ml PO DAILY PRN PRN Reason: SEVERE CONSITIPATION Lactulose (Lactulose Liq) 30 ml PO BID [facility] Last Admin: 09/14/18 08:31 Dose: Not Given Mannitol (Mannitol Inj) 12.5 gm IV.PUSH UNSCH PRN PRN Reason: hypotension / volume replace Midazolam HCl (Versed Inj) 2 mg IV.PUSH Q1H PRN PRN Reason: SEDATION Last Admin: 09/14/18 08:31 Dose: 2 mg Miscellaneous Medication () 1 each OROPHARYNG 0000,0400,1200,1600 [facility] Last Admin: 09/14/18 11:52 Dose: 1 each Morphine Sulfate (Morphine Inj) 2 mg IV.PUSH Q2H PRN PRN Reason: PAIN SCALE 6 TO 10 Last Admin: 09/14/18 00:45 Dose: 2 mg Nitroglycerin (Nitrostat Sl) 0.4 mg SL Q5M PRN PRN Reason: CHEST PAIN Ondansetron HCl (Zofran Inj) 4 mg IV.PUSH Q6H PRN PRN Reason: NAUSEA OR VOMITING Ondansetron HCl (Zofran Inj) 4 mg IV.PUSH UNSCH PRN PRN Reason: NAUSEA OR VOMITING Senna/Docusate Sodium (Nereida-Colace) 1 tab PO BID [facility] Last Admin: 09/14/18 08:26 Dose: Not Given Sennosides (Senokot) 17.2 mg PO Q12H PRN PRN Reason: Moderate Constipation Sodium Chloride (Ns Flush) 2 ml IV.FLUSH BID [facility] Last Admin: 09/14/18 08:25 Dose: 2 ml Sodium Chloride (Ns Flush) 2 ml IV.FLUSH PRN PRN PRN Reason: FLUSH AFTER USING IV ACCESS Sodium Chloride (Ns Flush) 5 ml IV.FLUSH PRN PRN PRN Reason: flush each lumen during HD Physical Exam Vital signs: Vital Signs 09/13/18 16:00 09/13/18 18:00 09/13/18 19:00 Temperature 98.6 F Pulse Rate 92 H 101 H 107 H Respiratory Rate 16 Blood Pressure 89/50 L Pulse Oximetry 98 100 09/13/18 19:01 09/13/18 19:20 09/13/18 19:30 Temperature Pulse Rate 107 H 108 H Respiratory Rate 22 Blood Pressure 121/64 101/54 L Pulse Oximetry 100 96 98 09/13/18 20:00 09/13/18 20:30 09/13/18 21:00 Temperature Pulse Rate 85 109 H 106 H Respiratory Rate Blood Pressure 99/56 L 100/58 L 101/52 L Pulse Oximetry 96 98 96 09/13/18 21:30 09/13/18 22:00 09/13/18 22:18 Temperature Pulse Rate 108 H 105 H 104 H Respiratory Rate Blood Pressure 100/52 L 92/51 L Pulse Oximetry 99 100 100 09/13/18 23:00 09/13/18 23:35 09/14/18 00:00 Temperature Pulse Rate 107 H 104 H Respiratory Rate 22 Blood Pressure 93/53 L Pulse Oximetry 100 100 99 09/14/18 01:00 09/14/18 02:00 09/14/18 03:00 Temperature Pulse Rate 115 H 119 H 108 H Respiratory Rate Blood Pressure Pulse Oximetry 92 L 93 L 93 L 09/14/18 03:20 09/14/18 03:26 09/14/18 03:29 Temperature Pulse Rate 103 H 103 H Respiratory Rate 24 Blood Pressure 78/45 L Pulse Oximetry 94 L 94 L 94 L 09/14/18 03:34 09/14/18 04:00 09/14/18 04:30 Temperature Pulse Rate 103 H 85 104 H Respiratory Rate 22 Blood Pressure 73/42 L 99/56 L 84/49 L Pulse Oximetry 95 96 95 09/14/18 05:00 09/14/18 05:30 09/14/18 06:00 Temperature Pulse Rate 104 H 101 H 101 H Respiratory Rate Blood Pressure 84/48 L 89/52 L Pulse Oximetry 96 95 09/14/18 07:00 09/14/18 07:01 09/14/18 07:30 Temperature 99.1 F Pulse Rate 109 H 111 H 104 H Respiratory Rate Blood Pressure 92/65 L 94/50 L Pulse Oximetry 96 96 96 09/14/18 07:32 09/14/18 08:00 09/14/18 08:30 Temperature Pulse Rate 104 H 109 H Respiratory Rate 23 Blood Pressure 86/52 L 97/60 L Pulse Oximetry 96 95 96 09/14/18 09:00 09/14/18 09:01 09/14/18 09:31 Temperature Pulse Rate 106 H 107 H 104 H Respiratory Rate Blood Pressure 136/63 81/42 L Pulse Oximetry 93 L 09/14/18 10:00 09/14/18 10:07 09/14/18 10:30 Temperature Pulse Rate 104 H 105 H Respiratory Rate 3 L Blood Pressure 89/52 L 86/48 L Pulse Oximetry 92 L 93 L 93 L 09/14/18 10:47 09/14/18 11:00 09/14/18 11:30 Temperature Pulse Rate 105 H 102 H 104 H Respiratory Rate 20 Blood Pressure 92/53 L 98/48 L Pulse Oximetry 92 L 92 L 09/14/18 12:00 09/14/18 12:30 09/14/18 13:00 Temperature Pulse Rate 108 H 102 H 104 H Respiratory Rate Blood Pressure 119/70 124/58 L 99/58 L Pulse Oximetry 94 L 95 97 09/14/18 13:16 09/14/18 13:31 Temperature Pulse Rate 104 H Respiratory Rate 16 Blood Pressure Pulse Oximetry 96 Intake & Output 09/13/18 09/14/18 09/14/18 18:59 06:59 18:59 Intake Total 1472 / 1472 724 / 724 200 / 200 Output Total 4850 / 4850 300 / 300 Balance -3378 / -3378 424 / 424 200 / 200 Weight 156.6 kg Intake: IV 900 / 900 250 / 250 200 / 200 Bumex Inj 25 mg In 100 ml @ 0.5 100 / 100 MG/HR 2 mls/hr IV.CONT .Q24H [facility] Rx#:[id number] Primacor Inj 20 MG In NS Inj 80 100 / 100 ML @ Per Protocol IV.CONT .Q0M [facility] Rx#:[id number] Diprivan 1000 mg/100 ml Inj 1, 500 / 500 100 / 100 100 / 100 000 mg In 100 ml @ 5 MCG/KG/MIN 6.804 mls/hr IV.CONT TITRATE PRN Rx#:[id number] Flexbumin 25% Inj 100 ML @ 60 200 / 200 mls/hr IV.SIG WITH DIALYSIS PRN Rx#:[id number] Zosyn 2.25 GM Premix 50 ML @ 100 / 100 50 / 50 100 / 100 100 mls/hr IV.SIG Q6H [facility] Rx#: [id number] Tube Feeding 522 / 522 424 / 424 Water Bolus Amount 50 / 50 50 / 50 Output: Hemodialysis Amount 4000 / 4000 Urine Amount (Catheter) 850 / 850 300 / 300 Indwelling Urethral Catheter 850 / 850 300 / 300 Other: Date of Last Bowel Movement 09/13/18 09/13/18 09/14/18 # Bowel Movements 2 # Incontinent Bowel Movements 2 1 - Constitutional no acute distress - Routine HEENT Exam Head: Present: normocephalic Eye: Present: PERRL ENT: Present: mucous membranes moist - Routine Neck Exam Present: supple - Routine Respiratory Exam Present: patient mechanically ventilated, rhonchi Comments: rhonchi throughout. - Routine Cardiovascular Exam Present: S1, S2. Absent: murmur, gallop, rubs - Routine Abdominal Exam Present: normoactive bowel sounds Comments: OG tube present - Routine Extremities Exam Present: edema, pulses intact, normal capillary refill. Absent: cyanosis, clubbing - Routine Skin Exam Present: intact - Routine Neurological Exam sedated - Detailed Neurological Exam: Coma Scale Eye Opening: None Verbal Response: None Motor Response: None Jordyn Coma Scale Total: 3 - Routine Psychiatric Exam Present: unable to assess - Urinary Catheter Management Indwelling Urethral Catheter Cath placed during this visit: yes Reason for continuing: Hourly intake/output Insertion date: 09/08/18 Insertion time: 22:52 Results 09/14/18 03:30 09/14/18 03:30 Cardiac Enzymes 09/13/18 09/14/18 Range/Units 03:09 03:30 AST 27 27 (15-37) U/L Coagulation 09/12/18 09/13/18 09/14/18 Range/Units 14:47 03:09 08:09 APTT 42.0 H 40.9 H 37.5 H (23.4-31.7) sec CBC 09/13/18 09/14/18 Range/Units 07:29 03:30 WBC 6.5 9.6 (4.0-11.0) th/mm3 RBC 4.22 3.94 L (4.00-5.30) mil/mm3 Hgb 11.1 L 10.3 L (11.6-15.3) gm/dL Hct 33.6 L 31.9 L (35.0-46.0) % Plt Count 272 310 (150-450) th/mm3 Comprehensive Metabolic Panel 09/13/18 09/14/18 Range/Units 03:09 03:30 Sodium 142 141 (136-145) meq/L Potassium 3.6 3.6 (3.5-5.1) meq/L Chloride 103 100 (98-107) meq/L Carbon Dioxide 26.0 27.6 (21.0-32.0) meq/L BUN 46 H 31 H (7-18) mg/dL Creatinine 5.41 H 4.71 H (0.50-1.00) mg/dL Calcium 8.4 L 9.0 (8.5-10.1) mg/dL AST 27 27 (15-37) U/L ALT 50 41 (10-53) U/L Alkaline Phosphatase 105 104 (45-117) U/L Total Protein 7.3 8.4 H D (6.4-8.2) g/dL Albumin 2.5 L 3.3 L D (3.4-5.0) g/dL Intake and Output 09/14/18 09/14/18 09/14/18 06:59 14:59 22:59 Intake Total 524 / 524 200 / 200 Output Total 300 / 300 Balance 224 / 224 200 / 200 Intake: IV 50 / 50 200 / 200 Diprivan 1000 mg/100 ml Inj 1, 100 / 100 000 mg In 100 ml @ 5 MCG/KG/MIN 6.804 mls/hr IV.CONT TITRATE PRN Rx#:[id number] Zosyn 2.25 GM Premix 50 ML @ 50 / 50 100 / 100 100 mls/hr IV.SIG Q6H [facility] Rx#: [id number] Tube Feeding 424 / 424 Water Bolus Amount 50 / 50 Output: Urine Amount (Catheter) 300 / 300 Indwelling Urethral Catheter 300 / 300 Other: Date of Last Bowel Movement 09/13/18 09/14/18 09/14/18 # Bowel Movements 2 # Incontinent Bowel Movements 1 Weight 156.6 kg - Imaging and Cardiology Imaging: Impressions Chest X-Ray 09/13/18 06:00 CONCLUSION: Worsening diffuse consolidation likely related to diffuse edema. Enlargement of the cardiac silhouette.. Chest X-Ray 09/14/18 06:00 CONCLUSION: Enlargement of cardiac silhouette. Hazy density in the perihilar regions likely related to edema. Assessment and Plan - Assessment (1) Acute kidney failure Code(s): N17.9 - Acute kidney failure, unspecified Status: Acute (2) Respiratory failure Code(s): J96.90 - Respiratory failure, unspecified, unspecified whether with hypoxia or hypercapnia Status: Acute (3) Obesity Code(s): E66.9 - Obesity, unspecified Status: Acute - Plan Continue treatment for CHF including milrinone. Patient remains in acute renal failure with HD, renal evaluation in progress. Patient's prognosis remains very poor, palliative care evaluation in progress. Discussed again with family the severity of this patient's condition. We will continue to monitor the patient during her hospitalization. The patient was seen and evaluated by Dr. Law who participated in care, management and decision making. - Attending Attestation Patient seen and examined. I reviewed and agree with the evaluation and plan as presented. Continue ICU care. Continue tx for CHF. Overall prognosis remains poor. D/w patient's family.
[2018-09-14] MEDS: Milrinone Inj 20 MG in Sodium Chlor 0.9% Inj 80 ML IV.CONT SCH (15:58)
[2018-09-15] MEDS: Heparin Drip 25,000 UNIT/250 ML BAG IV.CONT PRN ×2 (00:41→18:46)
[2018-09-15] MEDS: Oral Hygiene Kit OROPHARYNG SCH ×4 (01:04→15:13)
[2018-09-15] MEDS: Insulin NovoLIN Regular Correctional Sugar Inj SQ SCH ×6 (01:04→21:07)
[2018-09-15] MEDS: Propofol 1000 mg/100 ml Inj 1,000 MG/100 ML BOTTLE IV.CONT PRN ×2 (02:32→08:55)
[2018-09-15] MEDS: Milrinone Inj 20 MG in Sodium Chlor 0.9% Inj 80 ML IV.CONT SCH ×2 (02:33→13:47)
--- NOTE | 2018-09-15 03:39 | XR ---
EXAM DATE: 09/15/2018 3:26 AM EST AGE/SEX: 47 years / Female INDICATIONS: Shortness of breath, possible pulmonary disease. CLINICAL DATA: This is the patient's subsequent encounter. Patient reports that signs and symptoms h ave been present for 4 - 6 days and indicates a pain score of Nonresponsive. MEDICAL/SURGICAL HISTORY: Congestive heart failure. Non-responsive. COMPARISON: [facility], CHEST 1V SINGLE AP, 09/14/2018. . FINDINGS: The ET tube, NG tube and right internal jugular central line are well placed. The cardiac silhouette is enlarged. There is diffuse mixed interstitial and alveolar consolidation. There is further focal i ncreased density at the left perihilar region and at the inferior right upper lobe abutting the minor fissure. CONCLUSION: Enlargement of cardiac silhouette. Diffuse consolidation likely related to diffuse processes such as edema. Further increased density in the left perihilar region and the inferior aspect of the right upper lob e related to some further consolidation. Electronically signed by: Dillan Kelley MD Board Certified Radiologist 09/15/2018 3:38 AM EST
[2018-09-15] MEDS: Piperacil/Tazo 2.25 GM Premix 50 ML IV.SIG SCH ×4 (04:55→21:07)
[2018-09-15 05:11] LABS: Baso % (Auto) 0.5 % (0.0-2.0); Eos # (Auto) 0.8 th/mm3 (0.0-0.4); Eos % (Auto) 10.4 % (0.0-4.0); Hematocrit 31.9 % (35.0-46.0); Hemoglobin 10.3 gm/dL (11.6-15.3); Lymph # (Auto) 1.8 th/mm3 (1.0-4.8); Mean Corpuscular HGB Conc 32.2 % (32.0-36.0); Mean Corpuscular Hemoglobin 26.3 pg (27.0-34.0); Mean Corpuscular Volume 81.8 fL (80.0-100.0); Mean Platelet Volume 7.8 fL (7.0-11.0); Mono # (Auto) 0.7 th/mm3 (0.0-0.9); Mono % (Auto) 8.4 % (0.0-8.0); Neut # (Auto) 4.7 th/mm3 (1.8-7.7); Neut % (Auto) 58.7 % (16.0-70.0); Platelet Count 296 th/mm3 (150-450); Red Blood Count 3.91 mil/mm3 (4.00-5.30); Red Cell Distribution Width 17.2 % (11.6-17.2); White Blood Count 8.1 th/mm3 (4.0-11.0)
[2018-09-15 05:32] LABS: Calcium 9.5 mg/dL (8.5-10.1); Carbon Dioxide 27.4 meq/L (21.0-32.0); Magnesium 2.4 mg/dL (1.5-2.5); Phosphorus 8.1 mg/dL (2.5-4.9); Potassium 3.3 meq/L (3.5-5.1)
[2018-09-15] MEDS: Chlorhexidine 0.12% Oral Kit 15 ML UDC OROPHARYNG SCH ×2 (08:55→20:56)
[2018-09-15] MEDS: Senna/Docusate Sodium 8.6/50 MG Tablet PO SCH ×2 (08:56→20:56)
[2018-09-15] MEDS: Famotidine PF Inj 20 MG/2 ML Vial IV.PUSH SCH ×2 (08:56→20:55)
[2018-09-15] MEDS: fentaNYL 10 mcg/mL Premix Drip 2,500 MCG/250 ML BAG IV.SIG PRN (08:57)
--- NOTE | 2018-09-15 09:41 | P.PNCC ---
Subjective Subjective Remarks/Hospital Course: Middle-aged morbidly obese female was brought in emergently department by EMS due to respiratory failure and unresponsiveness. She was brought in being bagged by BV. Patient was a GCS of 3 upon arrival and hence in no condition to give any history. As per EMS the call went out as shortness of breath while patient got into the car. When they arrived she was in severe respiratory distress. They put her on BiPAP but shortly patient started to lose consciousness with agonal respirations. Family was at the scene and informed EMS that she has history of congestive heart failure. Patient was tachycardic upon arrival with heart rate in 170s. It appeared to be irregularly irregular on the monitor. She was immediately intubated by ED attending with improvement in her heart rate. There is no additional history available. Per report, the family admits the patient has been taking a lot of medications but they are unaware of the names or reasons. 09/10 Patient remains sedated with Diprivan and intubated. Renal function is worsening with Cr: 4.02 from 2.60. Afebrile. On Heparin drip. 09/11: Patient remains intubated sedated critically ill. Urine output has improved with Bumex infusion however creatinine has worsened from 4-5.5 today. D/W with nephrology-no acute indication for dialysis however considering creatinine worsening, will reduce Bumex infusion 0.5 mg/h. Chest x-ray is pending at this time 09/12: Remains intubated sedated with propofol however wakes up and follows commands. Creatinine worsening 6.5 today. Even though her urine output has improved on Bumex infusion 3 L in 24 hours, patient has increasing pulmonary vascular congestion and pulmonary edema. Discussed with nephrology. Will place hemodialysis catheter and start dialysis today for fluid removal. 09/13: Remains intubated sedated with propofol, started on hemodialysis yesterday achieving negative balance. However pulmonary edema persistent. Wakes up to command weakly follows. Creatinine slightly improved with dialysis. Urine output 1.8 L in 24 hours 09/14: Patient sedated on fentanyl and propofol infusions. Cardiac index now 2.8, the patient continues on milrinone. Chest x-ray reveals pulmonary edema, patient was dialyzed 4 L removed yesterday and urine output 1150 in the last 24 hours. 09/15: Remains lightly sedated on low-dose propofol and fentanyl. Wakes up easily follows commands. Currently on milrinone 0.2 mcg/kg/min. Reduce to 0.15 mcg/kg/min due to mild hypotension. Start CPAP trials. Urine output 700 mL. Discussed with nephrology dialyzed today. Chest x-ray remains essentially unchanged on my review with some persistent pulmonary edema but overall improving Objective Vital Signs / I&O: Vital Signs 09/14/18 10:00 09/14/18 10:07 09/14/18 10:30 Temperature Pulse Rate 104 H 105 H Respiratory Rate 3 L Blood Pressure 89/52 L 86/48 L Pulse Oximetry 92 L 93 L 93 L 09/14/18 10:47 09/14/18 11:00 09/14/18 11:30 Temperature Pulse Rate 105 H 102 H 104 H Respiratory Rate 20 Blood Pressure 92/53 L 98/48 L Pulse Oximetry 92 L 92 L 09/14/18 12:00 09/14/18 12:30 09/14/18 13:00 Temperature Pulse Rate 102 H 102 H 104 H Respiratory Rate Blood Pressure 119/70 124/58 L 99/58 L Pulse Oximetry 94 L 95 97 09/14/18 13:16 09/14/18 13:30 09/14/18 13:31 Temperature Pulse Rate 104 H 101 H Respiratory Rate 16 Blood Pressure 87/57 L Pulse Oximetry 96 96 09/14/18 14:00 09/14/18 14:30 09/14/18 15:00 Temperature Pulse Rate 104 H 101 H 101 H Respiratory Rate Blood Pressure 99/63 L 84/50 L 82/53 L Pulse Oximetry 98 97 97 09/14/18 15:17 09/14/18 15:30 09/14/18 16:00 Temperature 98.6 F Pulse Rate 100 H 98 H 96 H Respiratory Rate 16 Blood Pressure 88/49 L Pulse Oximetry 96 95 09/14/18 16:24 09/14/18 16:30 09/14/18 17:38 Temperature Pulse Rate 98 H 101 H Respiratory Rate 16 Blood Pressure Pulse Oximetry 95 96 09/14/18 20:00 09/14/18 20:14 09/14/18 20:17 Temperature 98.7 F Pulse Rate 96 H 91 H Respiratory Rate 16 16 16 Blood Pressure 101/56 L Pulse Oximetry 98 97 09/14/18 21:00 09/14/18 23:38 09/15/18 00:00 Temperature 98.4 F Pulse Rate 90 101 H 93 H Respiratory Rate 16 16 Blood Pressure 96/51 L 83/44 L Pulse Oximetry 100 99 09/15/18 04:00 09/15/18 04:06 09/15/18 06:00 Temperature 98.9 F Pulse Rate 101 H 98 H 95 H Respiratory Rate 16 16 Blood Pressure 102/56 L Pulse Oximetry 96 96 09/15/18 07:17 09/15/18 09:19 Temperature Pulse Rate 97 H Respiratory Rate 16 17 Blood Pressure Pulse Oximetry 97 95 Intake & Output 09/14/18 09/15/18 09/15/18 18:59 06:59 18:59 Intake Total 700 / 700 900 / 900 350 / 350 Output Total 400 / 400 300 / 300 Balance 300 / 300 600 / 600 350 / 350 Weight 156.6 kg Intake: IV 700 / 700 300 / 300 350 / 350 Heparin/D5W 25,000 U/250 mL 25, 250 / 250 000 unit In 250 ml @ Per Protocol IV.CONT TITRATE PRN Rx #:[id number] Primacor Inj 20 MG In NS Inj 80 100 / 100 100 / 100 ML @ Per Protocol IV.CONT .Q0M [facility] Rx#:[id number] Diprivan 1000 mg/100 ml Inj 1, 200 / 200 100 / 100 100 / 100 000 mg In 100 ml @ 5 MCG/KG/MIN 6.804 mls/hr IV.CONT TITRATE PRN Rx#:[id number] Zosyn 2.25 GM Premix 50 ML @ 150 / 150 100 / 100 100 mls/hr IV.SIG Q6H [facility] Rx#: [id number] fentaNYL 10 mcg/mL Premix Drip 250 / 250 2,500 mcg In 250 ml @ 50 MCG/HR 5 mls/hr IV.SIG TITRATE PRN Rx #:[id number] Tube Feeding 600 / 600 Output: Urine Amount (Catheter) 400 / 400 300 / 300 Indwelling Urethral Catheter 400 / 400 300 / 300 Other: Date of Last Bowel Movement 09/14/18 09/15/18 # Bowel Movements 2 2 Result Diagrams: 09/15/18 04:10 09/15/18 04:10 Objective Remarks: GENERAL: Patient is 47 yo intubated and sedated morbidly obese -[place] female SKIN: Warm and dry. HEAD: Normocephalic. EYES: No scleral icterus. No injection or drainage. NECK: Supple, trachea midline. Unable to appreciate JVD due to body habitus CARDIOVASCULAR: Regular rate and rhythm without murmurs, gallops, or rubs. Remains on IV heparin. Remains on milrinone at 0.2 mcg/kg/min cardiac index 2.3 RESPIRATORY: Breath sounds equal bilaterally. Air entry diminished at the bases. Few expiratory wheezing GASTROINTESTINAL: Abdomen soft, obese ,non-tender, nondistended. MUSCULOSKELETAL: No cyanosis, + edema. Neuro: Sedated, intubated. Wakes up easily understands conversation. Moves extremities purposefully. Weakly follows commands Assessment and Plan - Assessment and Plan Plan: ASSESSMENT: Acute hypoxemic respiratory failure Acute systolic heart failure Severe pulmonary edema Probable pneumonia Sepsis Acute kidney failure Acute pulmonary embolism Obesity hypoventilation syndrome Mild elevated trop Leukocytosis..trending down Elevated AST Morbid obesity PLAN: Neuro: On Diprivan and fentanyl infusion for sedation, continue daily sedation vacation. CT brain: No acute intracranial findings GCS 11 T off sedation-communicates by writing Pulm: Continue with vent support keep sats >92% Bronchodilators, ICU vent bundle. Start CPAP trials today 09/15/2018 CTA chest: Very limited examination due to patient body habitus. Elongated filling defect in the right pulmonary artery suspicious for PE. Moderate-sized area of right lower lobe pulmonary consolidation. Bilateral dependent lower lobe atelectasis. CXR -pulm edema Continue Heparin drip. Monitor PTT per protocol. Broad-spectrum antibiotics with Zosyn, discontinued on vancomycin 09/11 Started on milrinone 09/13/2018 to maintain cardiac index more than 2.2. Will wean from 0.2 to 0.15 mcg/kg/min CV: Monitor HR and BP keep MAP>65mmHg Echo 09/09: Technically difficult study making assessment of left ventricular function and wall motion. Suboptimal. Grossly, left ventricular function appears severely reduced. probable global hypokinesis. Cards Dr. Law following Continue fluid removal with hemodialysis started 09/12/2018, and IV Bumex GTT : Monitor renal function, I/O's, avoid nephrotoxins Renal function worse slightly improved with dialysis . Urine output 0.7 L in 24 hours. Last Hemodialysis started 09/13 4 L removed. Plan for today Renal is following Dr. Majano, continue Bumex drip 0.5 mg/hr. US abdomen: No masses or hydronephrosis, enlarged liver likely due to fatty infiltration. GI: On Pepcid for GI prophylaxis, tube feeds Nepro with goal rate 50ml/hr. BM ID: Continue abx (continue Zosyn, discontinued vancomycin 09/11/2018) monitor for signs of infections ( fever, WBC) Strep pneumonia and Legionella urinary Ag negative 09/09 Blood, sputum and urine cx: All negative to date Heme: Monitor CBC, coags- on Heparin drip. Endo: SSI with accuchecks for glycemic control DVT GI prophylaxis -SCDs -Heparin drip -Pepcid My billing statement This patient remains critically ill with one or more organ systems which are or may become a threat to life. I have spent in excess of 35 minutes discontinuously in the care and management of this patient. This time is exclusive of procedures, and includes, but is not limited to, evaluation of the patient, review of the medical record, discussions with family, consultants, nursing staff, or respiratory therapy, and documentation in the medical record. Patient is severely ill critical with multiorgan failure. She has multiple organs involved with respiratory failure heart failure renal failure and sepsis. Prognosis is guarded at this time.
[2018-09-15] MEDS: Morphine Sulfate Inj 2 MG/ML Vial IV.PUSH PRN ×3 (10:40→18:49)
--- NOTE | 2018-09-15 12:33 | P.PNNP ---
Subjective Interval history: Patient is awake, on the vent. following verbal commands. Physical Exam Vital signs: Vital Signs 09/14/18 13:00 09/14/18 13:16 09/14/18 13:30 Temperature Pulse Rate 104 H 104 H 101 H Respiratory Rate Blood Pressure 99/58 L 87/57 L Pulse Oximetry 97 96 09/14/18 13:31 09/14/18 14:00 09/14/18 14:30 Temperature Pulse Rate 104 H 101 H Respiratory Rate 16 Blood Pressure 99/63 L 84/50 L Pulse Oximetry 96 98 97 09/14/18 15:00 09/14/18 15:17 09/14/18 15:30 Temperature 98.6 F Pulse Rate 101 H 100 H 98 H Respiratory Rate 16 Blood Pressure 82/53 L 88/49 L Pulse Oximetry 97 96 09/14/18 16:00 09/14/18 16:24 09/14/18 16:30 Temperature Pulse Rate 96 H 98 H Respiratory Rate 16 Blood Pressure Pulse Oximetry 95 95 96 09/14/18 17:38 09/14/18 20:00 09/14/18 20:14 Temperature 98.7 F Pulse Rate 101 H 96 H Respiratory Rate 16 16 Blood Pressure 101/56 L Pulse Oximetry 98 97 09/14/18 20:17 09/14/18 21:00 09/14/18 23:38 Temperature Pulse Rate 91 H 90 101 H Respiratory Rate 16 16 Blood Pressure 96/51 L Pulse Oximetry 100 09/15/18 00:00 09/15/18 04:00 09/15/18 04:06 Temperature 98.4 F 98.9 F Pulse Rate 93 H 101 H 98 H Respiratory Rate 16 16 16 Blood Pressure 83/44 L 102/56 L Pulse Oximetry 99 96 96 09/15/18 06:00 09/15/18 07:00 09/15/18 07:17 Temperature 98.7 F Pulse Rate 95 H 96 H 97 H Respiratory Rate 16 Blood Pressure 88/49 L Pulse Oximetry 96 97 09/15/18 07:30 09/15/18 08:00 09/15/18 08:30 Temperature Pulse Rate 96 H 95 H 95 H Respiratory Rate Blood Pressure 90/53 L 89/50 L 81/47 L Pulse Oximetry 97 96 95 09/15/18 09:00 09/15/18 09:19 09/15/18 10:00 Temperature Pulse Rate 98 H 100 H Respiratory Rate 17 Blood Pressure 93/54 L Pulse Oximetry 95 95 96 09/15/18 10:01 09/15/18 10:16 09/15/18 10:57 Temperature Pulse Rate 101 H Respiratory Rate 17 Blood Pressure 85/53 L Pulse Oximetry 96 96 98 09/15/18 11:02 Temperature Pulse Rate 100 H Respiratory Rate 16 Blood Pressure Pulse Oximetry Intake & Output 09/14/18 09/15/18 09/15/18 18:59 06:59 18:59 Intake Total 700 / 700 900 / 900 350 / 350 Output Total 400 / 400 300 / 300 Balance 300 / 300 600 / 600 350 / 350 Weight 156.6 kg Intake: IV 700 / 700 300 / 300 350 / 350 Heparin/D5W 25,000 U/250 mL 25, 250 / 250 000 unit In 250 ml @ Per Protocol IV.CONT TITRATE PRN Rx #:[id number] Primacor Inj 20 MG In NS Inj 80 100 / 100 100 / 100 ML @ Per Protocol IV.CONT .Q0M [facility] Rx#:[id number] Diprivan 1000 mg/100 ml Inj 1, 200 / 200 100 / 100 100 / 100 000 mg In 100 ml @ 5 MCG/KG/MIN 6.804 mls/hr IV.CONT TITRATE PRN Rx#:[id number] Zosyn 2.25 GM Premix 50 ML @ 150 / 150 100 / 100 100 mls/hr IV.SIG Q6H [facility] Rx#: [id number] fentaNYL 10 mcg/mL Premix Drip 250 / 250 2,500 mcg In 250 ml @ 50 MCG/HR 5 mls/hr IV.SIG TITRATE PRN Rx #:[id number] Tube Feeding 600 / 600 Output: Urine Amount (Catheter) 400 / 400 300 / 300 Indwelling Urethral Catheter 400 / 400 300 / 300 Other: Date of Last Bowel Movement 09/14/18 09/15/18 09/15/18 # Bowel Movements 2 2 Narrative: Intubated, and off sedation. Lungs with decreased BS Cor reg Abd morbidly obese, soft Bilat LE edema Neuro grossly intact. - Urinary Catheter Management Indwelling Urethral Catheter Cath placed during this visit: yes Reason for continuing: Hourly intake/output Insertion date: 09/08/18 Insertion time: 22:52 Assessment and Plan - Assessment (1) Acute kidney failure Code(s): N17.9 - Acute kidney failure, unspecified Status: Acute Plan: Baseline renal function is not known. May have renal hypoperfusion. Could have developed contrast nephropathy after CTA. Clinically she appears to fluid overloaded. Patient on Bumex drip, continues to have good urine output via steele cath. Patient had right IJ hemodialysis catheter placement and patient last dialyzed yesterday. Creatinine remain elevated. Watch for renal recovery , HD now, mainly for fluid removal. Trying to remove 4 liters. BP is so far stable. (2) Respiratory failure Code(s): J96.90 - Respiratory failure, unspecified, unspecified whether with hypoxia or hypercapnia Status: Acute Plan: Patient orally intubated. (3) Obesity Code(s): E66.9 - Obesity, unspecified Status: Acute Plan: patient has obesity-hypoventilation syndrome. (4) Pulmonary embolism Code(s): I26.99 - Other pulmonary embolism without acute cor pulmonale Status : Acute Plan: On Heparin.
[2018-09-15] MEDS: Bumetanide Inj 25 MG/100 ML BAG IV.CONT SCH (13:51)
--- NOTE | 2018-09-15 14:23 | P.PNCA ---
Subjective Interval history: Patient is still intubated and sedated. Patient does wake up and attempts to follow commands. Medications and Allergies Allergies Allergy/AdvReac Type Severity Reaction Status Date / Time No Allergy Information Allergy Unverified 09/08/18 22:46 Available Home Medications Medication Instructions Recorded Confirmed Type allopurinol 100 mg PO DAILY 09/11/18 09/11/18 History cyclobenzaprine 5 mg PO TID 09/11/18 09/11/18 History furosemide 40 mg PO DAILY 09/11/18 09/11/18 History hydralazine 50 mg PO Q8HR 09/11/18 09/11/18 History insulin detemir U-100 [Levemir 24 unit SUBCUT Q12HR 09/11/18 09/11/18 History U-100 Insulin] insulin regular human [Novolin R 1 sliding scale dose SUBCUT UD 09/11/18 History Regular U-100 Insuln] levothyroxine 50 mcg PO DAILY 09/11/18 09/11/18 History meloxicam DAILY 09/11/18 History potassium chloride 20 meq PO DAILY 09/11/18 09/11/18 History pravastatin 40 mg PO HS 09/11/18 09/11/18 History pregabalin [Lyrica] 50 mg PO BID 09/11/18 09/11/18 History sertraline 50 mg PO HS 09/11/18 09/11/18 History tramadol 50 mg PO Q6H PRN 09/11/18 09/11/18 History Active Medications: Active Medications Acetaminophen (Tylenol) 650 mg PO Q6H PRN PRN Reason: PAIN 1-10 AND/OR FEVER >101F Acetaminophen (Tylenol) 650 mg PO UNSCH PRN PRN Reason: SEE LABEL COMMENTS Al Hydroxide/Mg Hydroxide (Milk Of Magnflavio Liq) 30 ml PO Q12H PRN PRN Reason: Mild Constipation Albuterol (Duoneb Neb (Prn)) 1 ampul NEB Q2HR NEB PRN PRN Reason: WHEEZING Last Admin: 09/14/18 10:45 Dose: 1 ampul Albuterol (Duoneb Neb (Vicky)) 1 ampul NEB Q4HR NEB VICKY Last Admin: 09/15/18 11:00 Dose: 1 ampul Bisacodyl (Dulcolax Supp) 10 mg RECTAL DAILY PRN PRN Reason: SEVERE CONSITIPATION Chlorhexidine Gluconate (Peridex 0.12% Oral Kit) 15 ml OROPHARYNG BID@0800, 2000 [facility] Last Admin: 09/15/18 08:55 Dose: 15 ml Clonidine HCl (Catapres) 0.1 mg PO UNSCH PRN PRN Reason: SEE LABEL COMMENTS Cyclobenzaprine HCl (Flexeril) 10 mg PO Q8H PRN PRN Reason: SPASM Last Admin: 09/14/18 18:14 Dose: 10 mg Dextrose (D50w Vial) 50 ml IV.PUSH UNSCH PRN PRN Reason: PER HYPOGLYCEMIA PROTOCOL Diphenhydramine HCl (Benadryl) 25 mg PO UNSCH PRN PRN Reason: SEE LABEL COMMENTS Famotidine (Pepcid Pf Inj) 10 mg IV.PUSH Q12HR [facility] Last Admin: 09/15/18 08:56 Dose: 10 mg Gelatin (Gelfoam 12 Mm/7 Mm Topical) 1 foam TOPICAL PRN PRN PRN Reason: help stop bleeding from site Gentamicin Sulfate (Gentamicin Inj) 20 mg OTHER WITH DIALYSIS PRN PRN Reason: Dwell Gentamycin Lock Last Admin: 09/13/18 15:07 Dose: 20 mg Glucagon (Glucagon Inj) 1 mg OTHER PRN PRN PRN Reason: for Hypoglycemia Protocol Heparin Sodium (Porcine) (Heparin Inj) 8,000 units OTHER WITH DIALYSIS PRN PRN Reason: for machine prime Heparin Sodium (Porcine) (Heparin Inj) 1,000 units OTHER WITH DIALYSIS PRN PRN Reason: Dwell Heparin to Fill Catheter Propofol (Diprivan 1000 Mg/100 Ml Inj) 1,000 mg in 100 mls @ 6.804 mls/hr IV.CONT TITRATE PRN; Protocol PRN Reason: Per Protocol Last Titration: 09/15/18 08:58 Dose: 0 mcg/kg/min, 0 mls/hr Diltiazem HCl 125 mg/ Sodium (Chloride) 125 mls @ 5 mls/hr IV.CONT TITRATE PRN ; Protocol PRN Reason: Per Protocol Last Titration: 09/11/18 19:00 Dose: Infused Heparin Sodium/Dextrose (Heparin/D5w 25,000 U/250 Ml) 25,000 unit in 250 mls @ 0 mls/hr IV.CONT TITRATE PRN; Protocol PRN Reason: Per Protocol Last Admin: 09/15/18 00:41 Dose: 1,400 units/hr, 14 mls/hr Piperacillin/Tazobactam/Dextrose (Zosyn 2.25 Gm Premix) 50 mls @ 100 mls/hr IV.SIG Q6H [facility] Last Infusion: 09/15/18 13:22 Dose: Infused Bumetanide (Bumex Inj) 25 mg in 100 mls @ 2 mls/hr IV.CONT .Q24H [facility] Last Admin: 09/15/18 13:51 Dose: 0.5 mg/hr, 2 mls/hr Albumin Human (Flexbumin 25% Inj) 100 mls @ 60 mls/hr IV.SIG WITH DIALYSIS PRN PRN Reason: hypotension / volume replace Last Infusion: 09/13/18 16:50 Dose: Infused Sodium Chloride (Ns Inj) 1,000 mls @ 0 mls/hr OTHER .Q0M PRN PRN Reason: for prime and rinse back Sodium Chloride (Ns Inj) 1,000 mls @ 200 mls/hr OTHER .Q5H PRN PRN Reason: for dialyzer flush PRN Sodium Chloride (Ns Inj) 1,000 mls @ 0 mls/hr IV.CONT .Q0M PRN PRN Reason: hypotension / volume replace Milrinone Lactate 20 mg/ (Sodium Chloride) 100 mls @ 0 mls/hr IV.CONT .Q0M [facility] ; Protocol Last Admin: 09/15/18 13:47 Dose: 0.15 mcg/kg/min, 6.94 mls/hr Fentanyl (Fentanyl 10 Mcg/Ml Premix Drip) 2,500 mcg in 250 mls @ 5 mls/hr IV.SIG TITRATE PRN; Protocol PRN Reason: Per Protocol Last Titration: 09/15/18 14:15 Dose: 25 mcg/hr, 2.5 mls/hr Insulin Human Regular (Novolin R Correctional Sugar Inj) 0 units SQ Q4HR [facility]ICK[facility]; Protocol Last Admin: 09/15/18 13:21 Dose: Not Given Lactulose (Lactulose Liq) 30 ml PO DAILY PRN PRN Reason: SEVERE CONSITIPATION Lactulose (Lactulose Liq) 30 ml PO BID VICKY Last Admin: 09/15/18 08:55 Dose: Not Given Mannitol (Mannitol Inj) 12.5 gm IV.PUSH UNSCH PRN PRN Reason: hypotension / volume replace Midazolam HCl (Versed Inj) 2 mg IV.PUSH Q1H PRN PRN Reason: SEDATION Last Admin: 09/14/18 08:31 Dose: 2 mg Miscellaneous Medication () 1 each OROPHARYNG 0000,0400,1200,1600 [facility] Last Admin: 09/15/18 13:22 Dose: 1 each Morphine Sulfate (Morphine Inj) 2 mg IV.PUSH Q2H PRN PRN Reason: PAIN SCALE 6 TO 10 Last Admin: 09/15/18 10:40 Dose: 2 mg Nitroglycerin (Nitrostat Sl) 0.4 mg SL Q5M PRN PRN Reason: CHEST PAIN Ondansetron HCl (Zofran Inj) 4 mg IV.PUSH Q6H PRN PRN Reason: NAUSEA OR VOMITING Ondansetron HCl (Zofran Inj) 4 mg IV.PUSH UNSCH PRN PRN Reason: NAUSEA OR VOMITING Senna/Docusate Sodium (Nereida-Colace) 1 tab PO BID [facility] Last Admin: 09/15/18 08:56 Dose: Not Given Sennosides (Senokot) 17.2 mg PO Q12H PRN PRN Reason: Moderate Constipation Sodium Chloride (Ns Flush) 2 ml IV.FLUSH BID [facility] Last Admin: 09/15/18 08:55 Dose: 2 ml Sodium Chloride (Ns Flush) 2 ml IV.FLUSH PRN PRN PRN Reason: FLUSH AFTER USING IV ACCESS Sodium Chloride (Ns Flush) 5 ml IV.FLUSH PRN PRN PRN Reason: flush each lumen during HD Physical Exam Vital signs: Vital Signs 09/14/18 14:30 09/14/18 15:00 09/14/18 15:17 Temperature Pulse Rate 101 H 101 H 100 H Respiratory Rate 16 Blood Pressure 84/50 L 82/53 L Pulse Oximetry 97 97 09/14/18 15:30 09/14/18 16:00 09/14/18 16:24 Temperature 98.6 F Pulse Rate 98 H 96 H Respiratory Rate 16 Blood Pressure 88/49 L Pulse Oximetry 96 95 95 09/14/18 16:30 09/14/18 17:38 09/14/18 20:00 Temperature 98.7 F Pulse Rate 98 H 101 H 96 H Respiratory Rate 16 Blood Pressure 101/56 L Pulse Oximetry 96 98 09/14/18 20:14 09/14/18 20:17 09/14/18 21:00 Temperature Pulse Rate 91 H 90 Respiratory Rate 16 16 Blood Pressure 96/51 L Pulse Oximetry 97 09/14/18 23:38 09/15/18 00:00 09/15/18 04:00 Temperature 98.4 F 98.9 F Pulse Rate 101 H 93 H 101 H Respiratory Rate 16 16 16 Blood Pressure 83/44 L 102/56 L Pulse Oximetry 100 99 96 09/15/18 04:06 09/15/18 06:00 09/15/18 07:00 Temperature 98.7 F Pulse Rate 98 H 95 H 96 H Respiratory Rate 16 Blood Pressure 88/49 L Pulse Oximetry 96 96 09/15/18 07:17 09/15/18 07:30 09/15/18 08:00 Temperature Pulse Rate 97 H 96 H 95 H Respiratory Rate 16 Blood Pressure 90/53 L 89/50 L Pulse Oximetry 97 97 96 09/15/18 08:30 09/15/18 09:00 09/15/18 09:19 Temperature Pulse Rate 95 H 98 H Respiratory Rate 17 Blood Pressure 81/47 L 93/54 L Pulse Oximetry 95 95 95 09/15/18 10:00 09/15/18 10:01 09/15/18 10:16 Temperature Pulse Rate 100 H 101 H Respiratory Rate 17 Blood Pressure 85/53 L Pulse Oximetry 96 96 96 09/15/18 10:57 09/15/18 11:00 09/15/18 11:01 Temperature Pulse Rate 101 H 100 H Respiratory Rate Blood Pressure 105/59 L Pulse Oximetry 98 97 98 09/15/18 11:02 09/15/18 12:00 09/15/18 12:01 Temperature Pulse Rate 100 H 96 H 96 H Respiratory Rate 16 Blood Pressure 101/59 L 101/59 L Pulse Oximetry 95 96 09/15/18 13:00 09/15/18 13:01 09/15/18 13:08 Temperature Pulse Rate 94 H 93 H Respiratory Rate 16 Blood Pressure 111/55 L Pulse Oximetry 95 95 95 09/15/18 13:56 09/15/18 14:12 Temperature Pulse Rate 96 H Respiratory Rate 19 Blood Pressure Pulse Oximetry 97 Intake & Output 09/14/18 09/15/18 09/15/18 18:59 06:59 18:59 Intake Total 700 / 700 900 / 900 600 / 600 Output Total 400 / 400 300 / 300 Balance 300 / 300 600 / 600 600 / 600 Weight 156.6 kg Intake: IV 700 / 700 300 / 300 600 / 600 Bumex Inj 25 mg In 100 ml @ 0.5 100 / 100 MG/HR 2 mls/hr IV.CONT .Q24H [facility] Rx#:[id number] Heparin/D5W 25,000 U/250 mL 25, 250 / 250 000 unit In 250 ml @ Per Protocol IV.CONT TITRATE PRN Rx #:[id number] Primacor Inj 20 MG In NS Inj 80 100 / 100 100 / 100 100 / 100 ML @ Per Protocol IV.CONT .Q0M [facility] Rx#:[id number] Diprivan 1000 mg/100 ml Inj 1, 200 / 200 100 / 100 100 / 100 000 mg In 100 ml @ 5 MCG/KG/MIN 6.804 mls/hr IV.CONT TITRATE PRN Rx#:[id number] Zosyn 2.25 GM Premix 50 ML @ 150 / 150 100 / 100 50 / 50 100 mls/hr IV.SIG Q6H [facility] Rx#: [id number] fentaNYL 10 mcg/mL Premix Drip 250 / 250 2,500 mcg In 250 ml @ 50 MCG/HR 5 mls/hr IV.SIG TITRATE PRN Rx #:[id number] Tube Feeding 600 / 600 Output: Urine Amount (Catheter) 400 / 400 300 / 300 Indwelling Urethral Catheter 400 / 400 300 / 300 Other: Date of Last Bowel Movement 09/14/18 09/15/18 09/15/18 # Bowel Movements 2 2 - Constitutional no acute distress - Routine HEENT Exam Head: Present: normocephalic Eye: Present: PERRL ENT: Present: mucous membranes moist - Routine Neck Exam Present: supple - Routine Respiratory Exam Present: patient mechanically ventilated - Routine Cardiovascular Exam Present: S1, S2. Absent: murmur, gallop, rubs - Routine Abdominal Exam Present: normoactive bowel sounds - Routine Extremities Exam Present: edema, pulses intact, normal capillary refill. Absent: cyanosis, clubbing - Routine Skin Exam Present: intact - Routine Neurological Exam Present: moving all extremities patient attempts to follow commands and shakes head yes/no to questions - Detailed Neurological Exam: Coma Scale Eye Opening: To sound Verbal Response: None Motor Response: Obey commands [place] Coma Scale Total: 10 - Routine Psychiatric Exam Present: unable to assess - Urinary Catheter Management Indwelling Urethral Catheter Cath placed during this visit: yes Reason for continuing: Hourly intake/output Insertion date: 09/08/18 Insertion time: 22:52 Results 09/15/18 04:10 09/15/18 04:10 Cardiac Enzymes 09/14/18 Range/Units 03:30 AST 27 (15-37) U/L Coagulation 09/14/18 09/14/18 09/14/18 Range/Units 08:09 15:55 21:10 APTT 37.5 H 41.1 H 41.2 H (23.4-31.7) sec 09/15/18 Range/Units 04:10 APTT 43.2 H (23.4-31.7) sec CBC 09/14/18 09/15/18 Range/Units 03:30 04:10 WBC 9.6 8.1 (4.0-11.0) th/mm3 RBC 3.94 L 3.91 L (4.00-5.30) mil/mm3 Hgb 10.3 L 10.3 L (11.6-15.3) gm/dL Hct 31.9 L 31.9 L (35.0-46.0) % Plt Count 310 296 (150-450) th/mm3 Neut # (Auto) 4.7 (1.8-7.7) th/mm3 Lymph # (Auto) 1.8 (1.0-4.8) th/mm3 [place] # (Auto) 0.7 (0.0-0.9) th/mm3 Eos # (Auto) 0.8 H (0.0-0.4) th/mm3 Baso # (Auto) 0.0 (0.0-0.2) th/mm3 Comprehensive Metabolic Panel 09/14/18 09/15/18 Range/Units 03:30 04:10 Sodium 141 140 (136-145) meq/L Potassium 3.6 3.3 L (3.5-5.1) meq/L Chloride 100 101 (98-107) meq/L Carbon Dioxide 27.6 27.4 (21.0-32.0) meq/L BUN 31 H 45 H (7-18) mg/dL Creatinine 4.71 H 6.16 H (0.50-1.00) mg/dL Calcium 9.0 9.5 (8.5-10.1) mg/dL AST 27 (15-37) U/L ALT 41 (10-53) U/L Alkaline Phosphatase 104 (45-117) U/L Total Protein 8.4 H D (6.4-8.2) g/dL Albumin 3.3 L D (3.4-5.0) g/dL Intake and Output 09/14/18 09/15/18 09/15/18 22:59 06:59 14:59 Intake Total 200 / 200 850 / 850 600 / 600 Output Total 400 / 400 300 / 300 Balance -200 / -200 550 / 550 600 / 600 Intake: IV 200 / 200 250 / 250 600 / 600 Bumex Inj 25 mg In 100 ml @ 0.5 100 / 100 MG/HR 2 mls/hr IV.CONT .Q24H [facility] Rx#:[id number] Primacor Inj 20 MG In NS Inj 80 100 / 100 100 / 100 ML @ Per Protocol IV.CONT .Q0M [facility] Rx#:[id number] Diprivan 1000 mg/100 ml Inj 1, 100 / 100 100 / 100 100 / 100 000 mg In 100 ml @ 5 MCG/KG/MIN 6.804 mls/hr IV.CONT TITRATE PRN Rx#:[id number] Zosyn 2.25 GM Premix 50 ML @ 100 / 100 50 / 50 50 / 50 100 mls/hr IV.SIG Q6H [facility] Rx#: [id number] fentaNYL 10 mcg/mL Premix Drip 250 / 250 2,500 mcg In 250 ml @ 50 MCG/HR 5 mls/hr IV.SIG TITRATE PRN Rx #:[id number] Tube Feeding 600 / 600 Output: Urine Amount (Catheter) 400 / 400 300 / 300 Indwelling Urethral Catheter 400 / 400 300 / 300 Other: Date of Last Bowel Movement 09/14/18 09/15/18 09/15/18 # Bowel Movements 2 2 Weight 156.6 kg - Imaging and Cardiology Imaging: Impressions Chest X-Ray 09/14/18 06:00 CONCLUSION: Enlargement of cardiac silhouette. Hazy density in the perihilar regions likely related to edema. Chest X-Ray 09/15/18 04:00 CONCLUSION: Enlargement of cardiac silhouette. Diffuse consolidation likely related to diffuse processes such as edema. Further increased density in the left perihilar region and the inferior aspect of the right upper lobe related to some further consolidation. Assessment and Plan - Assessment (1) Acute kidney failure Code(s): N17.9 - Acute kidney failure, unspecified Status: Acute (2) Respiratory failure Code(s): J96.90 - Respiratory failure, unspecified, unspecified whether with hypoxia or hypercapnia Status: Acute (3) Obesity Code(s): E66.9 - Obesity, unspecified Status: Acute - Plan Milrinone decreased due to hypotension. Continue to titrate for CHF treatment. Patients prognosis remains very poor, palliative care evaluation in progress. Patient continues to be in acute renal failure, receiving HD, renal evaluation in progress. We will continue with current cardiac treatment plan. We will continue to monitor the patient during her hospitalization. The patient was seen and evaluated by Dr. Law who participated in care, management and decision making. - Attending Attestation Patient seen and examined. I reviewed and agree with the evaluation and plan as presented. Continue tx for CHF including milrinone. Continue HD. Wean vent as tolerated. Overall prognosis remains very poor. Recommend palliative care evaluation.
[2018-09-16] MEDS: Insulin NovoLIN Regular Correctional Sugar Inj SQ SCH ×6 (00:24→23:46)
[2018-09-16] MEDS: Oral Hygiene Kit OROPHARYNG SCH ×5 (00:24→23:46)
[2018-09-16] MEDS: Propofol 1000 mg/100 ml Inj 1,000 MG/100 ML BOTTLE IV.CONT PRN ×3 (01:46→07:40)
[2018-09-16] MEDS: Milrinone Inj 20 MG in Sodium Chlor 0.9% Inj 80 ML IV.CONT SCH ×2 (03:35→20:25)
[2018-09-16 04:36] LABS: Hematocrit 31.6 % (35.0-46.0); Hemoglobin 10.3 gm/dL (11.6-15.3); Mean Corpuscular HGB Conc 32.6 % (32.0-36.0); Mean Corpuscular Hemoglobin 25.9 pg (27.0-34.0); Mean Corpuscular Volume 79.3 fL (80.0-100.0); Platelet Count 354 th/mm3 (150-450); Red Blood Count 3.99 mil/mm3 (4.00-5.30); Red Cell Distribution Width 17.2 % (11.6-17.2); White Blood Count 11.1 th/mm3 (4.0-11.0)
[2018-09-16] MEDS: Piperacil/Tazo 2.25 GM Premix 50 ML IV.SIG SCH ×4 (04:54→22:01)
[2018-09-16 05:03] LABS: Albumin 3.1 g/dL (3.4-5.0); Anion Gap 13 meq/L (5-15); Blood Urea Nitrogen 37 mg/dL (7-18); Calcium 9.7 mg/dL (8.5-10.1); Carbon Dioxide 26.8 meq/L (21.0-32.0); Chloride 97 meq/L (98-107); Glomerular Filtration Rate 8 mL/min (>89); Glucose,Random 126 mg/dL (74-106); Potassium 3.1 meq/L (3.5-5.1); Sodium 137 meq/L (136-145)
[2018-09-16 05:05] LABS: Alanine Aminotransferase 32 U/L (10-53); Aspartate Aminotransferase 27 U/L (15-37)
[2018-09-16 05:07] LABS: Alkaline Phosphatase 86 U/L (45-117); Total Protein 8.5 g/dL (6.4-8.2)
--- NOTE | 2018-09-16 05:17 | XR ---
EXAM DATE: 09/16/2018 5:12 AM EST AGE/SEX: 47 years / Female INDICATIONS: Shortness of breath. CLINICAL DATA: This is the patient's subsequent encounter. Patient reports that signs and symptoms h ave been present for 1 week and indicates a pain score of Nonresponsive. MEDICAL/SURGICAL HISTORY: Congestive heart failure. Non-responsive. COMPARISON: C, CHEST 1V SINGLE AP, 09/15/2018. . FINDINGS: ET tube tip well above the rich. Gastric tube traverses the [id number]. Large bore right interna l jugular catheter tip projects in the right atrium. There is persisting consolidation in the right u pper lobe adjacent to the minor fissure. Decreasing left suprahilar consolidation. Stable cardiomegal y. Both hemidiaphragms well delineated. CONCLUSION: 1. Persistent right upper lobe consolidation and slightly improving left upper lobe consolidation. 2. Stable cardiomegaly. Electronically signed by: Ankur Carr MD Board Certified Radiologist 09/16/2018 5:16 AM EST
--- NOTE | 2018-09-16 07:47 | P.PNCC ---
Subjective Subjective Remarks/Hospital Course: Middle-aged morbidly obese female was brought in emergently department by EMS due to respiratory failure and unresponsiveness. She was brought in being bagged by BV. Patient was a GCS of 3 upon arrival and hence in no condition to give any history. As per EMS the call went out as shortness of breath while patient got into the car. When they arrived she was in severe respiratory distress. They put her on BiPAP but shortly patient started to lose consciousness with agonal respirations. Family was at the scene and informed EMS that she has history of congestive heart failure. Patient was tachycardic upon arrival with heart rate in 170s. It appeared to be irregularly irregular on the monitor. She was immediately intubated by ED attending with improvement in her heart rate. There is no additional history available. Per report, the family admits the patient has been taking a lot of medications but they are unaware of the names or reasons. 09/10 Patient remains sedated with Diprivan and intubated. Renal function is worsening with Cr: 4.02 from 2.60. Afebrile. On Heparin drip. 09/11: Patient remains intubated sedated critically ill. Urine output has improved with Bumex infusion however creatinine has worsened from 4-5.5 today. D/W with nephrology-no acute indication for dialysis however considering creatinine worsening, will reduce Bumex infusion 0.5 mg/h. Chest x-ray is pending at this time 09/12: Remains intubated sedated with propofol however wakes up and follows commands. Creatinine worsening 6.5 today. Even though her urine output has improved on Bumex infusion 3 L in 24 hours, patient has increasing pulmonary vascular congestion and pulmonary edema. Discussed with nephrology. Will place hemodialysis catheter and start dialysis today for fluid removal. 09/13: Remains intubated sedated with propofol, started on hemodialysis yesterday achieving negative balance. However pulmonary edema persistent. Wakes up to command weakly follows. Creatinine slightly improved with dialysis. Urine output 1.8 L in 24 hours 09/14: Patient sedated on fentanyl and propofol infusions. Cardiac index now 2.8, the patient continues on milrinone. Chest x-ray reveals pulmonary edema, patient was dialyzed 4 L removed yesterday and urine output 1150 in the last 24 hours. 09/15: Remains lightly sedated on low-dose propofol and fentanyl. Wakes up easily follows commands. Currently on milrinone 0.2 mcg/kg/min. Reduce to 0.15 mcg/kg/min due to mild hypotension. Start CPAP trials. Urine output 700 mL. Discussed with nephrology dialyzed today. Chest x-ray remains essentially unchanged on my review with some persistent pulmonary edema but overall improving 09/16: Patient continues to achieve negative balance with hemodialysis. 4 L removed yesterday, dialysis again today. Plan for CPAP trial after hemodialysis. Lightly sedated with propofol and fentanyl. Continue milrinone at 0.15 mcg/kg/min. Cardiac index 2.2 Objective Vital Signs / I&O: Vital Signs 09/15/18 08:00 09/15/18 08:30 09/15/18 09:00 Temperature Pulse Rate 95 H 95 H 98 H Respiratory Rate Blood Pressure 89/50 L 81/47 L 93/54 L Pulse Oximetry 96 95 95 09/15/18 09:19 09/15/18 10:00 09/15/18 10:01 Temperature Pulse Rate 100 H 101 H Respiratory Rate 17 Blood Pressure 85/53 L Pulse Oximetry 95 96 96 09/15/18 10:16 09/15/18 10:57 09/15/18 11:00 Temperature Pulse Rate 101 H Respiratory Rate 17 Blood Pressure Pulse Oximetry 96 98 97 09/15/18 11:01 09/15/18 11:02 09/15/18 12:00 Temperature Pulse Rate 100 H 100 H 96 H Respiratory Rate 16 Blood Pressure 105/59 L 101/59 L Pulse Oximetry 98 95 09/15/18 12:01 09/15/18 13:00 09/15/18 13:01 Temperature Pulse Rate 96 H 94 H 93 H Respiratory Rate Blood Pressure 101/59 L 111/55 L Pulse Oximetry 96 95 95 09/15/18 13:08 09/15/18 13:56 09/15/18 14:00 Temperature Pulse Rate 96 H 98 H Respiratory Rate 16 Blood Pressure Pulse Oximetry 95 97 09/15/18 14:12 09/15/18 15:00 09/15/18 15:01 Temperature Pulse Rate 103 H 104 H Respiratory Rate 19 Blood Pressure Pulse Oximetry 97 99 100 09/15/18 15:21 09/15/18 15:52 09/15/18 16:00 Temperature Pulse Rate 97 H 98 H 99 H Respiratory Rate 16 Blood Pressure Pulse Oximetry 99 09/15/18 16:01 09/15/18 16:32 09/15/18 17:07 Temperature Pulse Rate 98 H Respiratory Rate 19 Blood Pressure 134/58 L Pulse Oximetry 98 97 99 09/15/18 17:11 09/15/18 20:00 09/15/18 20:51 Temperature 99.0 F Pulse Rate 98 H 103 H 100 H Respiratory Rate 16 16 Blood Pressure 123/60 Pulse Oximetry 98 09/15/18 20:52 09/15/18 22:00 09/15/18 23:44 Temperature Pulse Rate 100 H 97 H Respiratory Rate 16 16 Blood Pressure Pulse Oximetry 100 99 09/16/18 00:00 09/16/18 02:00 09/16/18 04:00 Temperature 98.9 F 98.9 F Pulse Rate 101 H 97 H 97 H Respiratory Rate 16 16 Blood Pressure 112/55 L 92/51 L Pulse Oximetry 100 98 09/16/18 04:21 09/16/18 06:00 Temperature Pulse Rate 98 H 98 H Respiratory Rate 17 Blood Pressure Pulse Oximetry 98 Intake & Output 09/15/18 09/16/18 09/16/18 18:59 06:59 18:59 Intake Total 900 / 900 950 / 950 Output Total 4300 / 4300 100 / 100 Balance -3400 / -3400 850 / 850 Weight 142.6 kg Intake: IV 900 / 900 400 / 400 Bumex Inj 25 mg In 100 ml @ 0.5 100 / 100 MG/HR 2 mls/hr IV.CONT .Q24H [facility] Rx#:[id number] Heparin/D5W 25,000 U/250 mL 25, 250 / 250 000 unit In 250 ml @ Per Protocol IV.CONT TITRATE PRN Rx #:[id number] Primacor Inj 20 MG In NS Inj 80 100 / 100 100 / 100 ML @ Per Protocol IV.CONT .Q0M [facility] Rx#:[id number] Diprivan 1000 mg/100 ml Inj 1, 100 / 100 200 / 200 000 mg In 100 ml @ 5 MCG/KG/MIN 6.804 mls/hr IV.CONT TITRATE PRN Rx#:[id number] Zosyn 2.25 GM Premix 50 ML @ 100 / 100 100 / 100 100 mls/hr IV.SIG Q6H [facility] Rx#: [id number] fentaNYL 10 mcg/mL Premix Drip 250 / 250 2,500 mcg In 250 ml @ 50 MCG/HR 5 mls/hr IV.SIG TITRATE PRN Rx #:[id number] Tube Feeding 550 / 550 Output: Hemodialysis Amount 4000 / 4000 Urine Amount (Catheter) 300 / 300 100 / 100 Indwelling Urethral Catheter 300 / 300 100 / 100 Other: Date of Last Bowel Movement 09/15/18 09/15/18 # Bowel Movements 1 Result Diagrams: 09/16/18 04:20 09/16/18 04:20 Objective Remarks: GENERAL: Patient is 47 yo intubated and sedated morbidly obese -[place] female SKIN: Warm and dry. HEAD: Normocephalic. EYES: No scleral icterus. No injection or drainage. NECK: Supple, trachea midline. Unable to appreciate JVD due to body habitus CARDIOVASCULAR: Regular rate and rhythm without murmurs, gallops, or rubs. Remains on IV heparin. Remains on milrinone at 0.15 mcg/kg/min CI 2.2 RESPIRATORY: Breath sounds equal bilaterally. Air entry diminished at the bases. Few expiratory wheezing GASTROINTESTINAL: Abdomen soft, obese ,non-tender, nondistended. MUSCULOSKELETAL: No cyanosis, + edema. Neuro: Sedated, intubated. Wakes up easily understands conversation. Moves extremities purposefully. Follows commands x4 Assessment and Plan - Assessment and Plan Plan: ASSESSMENT: Acute hypoxemic respiratory failure Acute systolic heart failure Pulmonary edema Probable pneumonia Sepsis Acute kidney failure Acute pulmonary embolism Obesity hypoventilation syndrome Mild elevated trop Leukocytosis Elevated AST Morbid obesity PLAN: Neuro: On Diprivan and fentanyl infusion for sedation, continue daily sedation vacation. CT brain: No acute intracranial findings GCS 11 T off sedation-communicates by writing Pulm: Continue with vent support keep sats >92% Bronchodilators, ICU vent bundle. CPAP trials again after HD CTA chest: Very limited examination due to patient body habitus. Elongated filling defect in the right pulmonary artery suspicious for PE. Moderate-sized area consolidation of right lower lobe. Bilateral dependent lower lobe atelectasis. CXR -pulm edema Continue Heparin drip. Monitor PTT per protocol. Broad-spectrum antibiotics with Zosyn, discontinued on vancomycin 09/11 CV: Started on milrinone 09/13/2018 to maintain cardiac index more than 2.2. Now at 0.15 mcg/kg/min Echo 09/09: Technically difficult study making assessment of left ventricular function and wall motion. Suboptimal. Grossly, left ventricular function appears severely reduced. probable global hypokinesis. Cards Dr. Law following Continue fluid removal with hemodialysis started 09/12/2018, and IV Bumex GTT. achieving negative balance now : Monitor renal function, I/O's, avoid nephrotoxins. Fluid removal with hemodialysis started 09/12/2018 Renal function worse slightly improved with dialysis. Getting HD today Renal Dr. Majano, continue Bumex drip 0.5 mg/hr. US abdomen: No masses or hydronephrosis, enlarged liver likely due to fatty infiltration. GI: On Pepcid for GI prophylaxis, tube feeds Nepro with goal rate 50ml/hr. BM ID: Continue abx (continue Zosyn, discontinued vancomycin 09/11/2018) monitor for signs of infections ( fever, WBC) Start Zyvox due to slight increase in WBC count Strep pneumonia and Legionella urinary Ag negative 09/09 Blood, sputum and urine cx: All negative to date Heme: Monitor CBC, coags- on Heparin drip. Endo: SSI with accuchecks for glycemic control DVT GI prophylaxis -SCDs -Heparin drip -Pepcid My billing statement This patient remains critically ill with one or more organ systems which are or may become a threat to life. I have spent in excess of 35 minutes discontinuously in the care and management of this patient. This time is exclusive of procedures, and includes, but is not limited to, evaluation of the patient, review of the medical record, discussions with family, consultants, nursing staff, or respiratory therapy, and documentation in the medical record. Patient is severely ill critical with multiorgan failure. She has multiple organs involved with respiratory failure heart failure renal failure and sepsis. Prognosis is guarded at this time.
[2018-09-16] MEDS: Chlorhexidine 0.12% Oral Kit 15 ML UDC OROPHARYNG SCH ×2 (08:24→20:22)
[2018-09-16] MEDS: Senna/Docusate Sodium 8.6/50 MG Tablet PO SCH ×2 (08:25→20:23)
--- NOTE | 2018-09-16 10:39 | P.PNNP ---
Subjective Interval history: Patient was seen, no distress. Patient getting dialysis today. Possible extubation after dialysis. Bumex discontinued today. <Venkatesh Bernal - Last Filed: 09/16/18 10:40> Physical Exam Vital signs: Vital Signs 09/15/18 10:57 09/15/18 11:00 09/15/18 11:01 Temperature Pulse Rate 101 H 100 H Respiratory Rate Blood Pressure 105/59 L Pulse Oximetry 98 97 98 09/15/18 11:02 09/15/18 12:00 09/15/18 12:01 Temperature Pulse Rate 100 H 96 H 96 H Respiratory Rate 16 Blood Pressure 101/59 L 101/59 L Pulse Oximetry 95 96 09/15/18 13:00 09/15/18 13:01 09/15/18 13:08 Temperature Pulse Rate 94 H 93 H Respiratory Rate 16 Blood Pressure 111/55 L Pulse Oximetry 95 95 95 09/15/18 13:56 09/15/18 14:00 09/15/18 14:12 Temperature Pulse Rate 96 H 98 H Respiratory Rate 19 Blood Pressure Pulse Oximetry 97 97 09/15/18 15:00 09/15/18 15:01 09/15/18 15:21 Temperature Pulse Rate 103 H 104 H 97 H Respiratory Rate 16 Blood Pressure Pulse Oximetry 99 100 09/15/18 15:52 09/15/18 16:00 09/15/18 16:01 Temperature Pulse Rate 98 H 99 H 98 H Respiratory Rate Blood Pressure 134/58 L Pulse Oximetry 99 98 09/15/18 16:32 09/15/18 17:07 09/15/18 17:11 Temperature Pulse Rate 98 H Respiratory Rate 19 Blood Pressure Pulse Oximetry 97 99 09/15/18 20:00 09/15/18 20:51 09/15/18 20:52 Temperature 99.0 F Pulse Rate 103 H 100 H Respiratory Rate 16 16 16 Blood Pressure 123/60 Pulse Oximetry 98 100 09/15/18 22:00 09/15/18 23:44 09/16/18 00:00 Temperature 98.9 F Pulse Rate 100 H 97 H 101 H Respiratory Rate 16 16 Blood Pressure 112/55 L Pulse Oximetry 99 100 09/16/18 02:00 09/16/18 04:00 09/16/18 04:21 Temperature 98.9 F Pulse Rate 97 H 97 H 98 H Respiratory Rate 16 17 Blood Pressure 92/51 L Pulse Oximetry 98 98 09/16/18 06:00 09/16/18 07:00 09/16/18 08:00 Temperature Pulse Rate 98 H 96 H Respiratory Rate 16 16 Blood Pressure Pulse Oximetry 99 Intake & Output 09/15/18 09/16/18 09/16/18 18:59 06:59 18:59 Intake Total 900 / 900 950 / 950 100 / 100 Output Total 4300 / 4300 100 / 100 Balance -3400 / -3400 850 / 850 100 / 100 Weight 142.6 kg Intake: IV 900 / 900 400 / 400 100 / 100 Bumex Inj 25 mg In 100 ml @ 0.5 100 / 100 MG/HR 2 mls/hr IV.CONT .Q24H [facility] Rx#:[id number] Heparin/D5W 25,000 U/250 mL 25, 250 / 250 000 unit In 250 ml @ Per Protocol IV.CONT TITRATE PRN Rx #:[id number] Primacor Inj 20 MG In NS Inj 80 100 / 100 100 / 100 ML @ Per Protocol IV.CONT .Q0M [facility] Rx#:[id number] Diprivan 1000 mg/100 ml Inj 1, 100 / 100 200 / 200 100 / 100 000 mg In 100 ml @ 5 MCG/KG/MIN 6.804 mls/hr IV.CONT TITRATE PRN Rx#:[id number] Zosyn 2.25 GM Premix 50 ML @ 100 / 100 100 / 100 100 mls/hr IV.SIG Q6H [facility] Rx#: [id number] fentaNYL 10 mcg/mL Premix Drip 250 / 250 2,500 mcg In 250 ml @ 50 MCG/HR 5 mls/hr IV.SIG TITRATE PRN Rx #:[id number] Tube Feeding 550 / 550 Output: Hemodialysis Amount 4000 / 4000 Urine Amount (Catheter) 300 / 300 100 / 100 Indwelling Urethral Catheter 300 / 300 100 / 100 Other: Date of Last Bowel Movement 09/15/18 09/15/18 # Bowel Movements 1 Narrative: GENERAL: Intubated and sedated, morbidly obese. SKIN: Warm and dry. HEAD: Normocephalic. NECK: Supple, trachea midline. CARDIOVASCULAR: Regular rate and rhythm without murmurs, gallops, or rubs. RESPIRATORY: Breath sounds equal bilaterally. Air entry diminished at the bases. GASTROINTESTINAL: Abdomen soft, obese ,non-tender, nondistended. MUSCULOSKELETAL: No cyanosis, + edema. Neuro: Sedated, intubated. - Urinary Catheter Management Indwelling Urethral Catheter Cath placed during this visit: yes Reason for continuing: Hourly intake/output Insertion date: 09/08/18 Insertion time: 22:52 <Venkatesh Bernal - Last Filed: 09/16/18 10:40> Vital signs: Vital Signs 09/16/18 10:00 09/16/18 11:21 09/16/18 11:22 Temperature Pulse Rate 99 H 98 H Respiratory Rate 16 18 Blood Pressure Pulse Oximetry 100 09/16/18 12:00 09/16/18 14:00 09/16/18 15:39 Temperature 98.4 F Pulse Rate 100 H 98 H 96 H Respiratory Rate 18 18 Blood Pressure 95/64 L Pulse Oximetry 98 09/16/18 16:00 09/16/18 18:00 09/16/18 20:00 Temperature 97.9 F 98.3 F Pulse Rate 97 H 100 H 103 H Respiratory Rate 20 22 Blood Pressure Pulse Oximetry 98 100 09/16/18 21:08 09/16/18 22:00 09/16/18 23:42 Temperature Pulse Rate 103 H 108 H 109 H Respiratory Rate 19 19 Blood Pressure Pulse Oximetry 98 09/17/18 00:00 09/17/18 02:00 09/17/18 04:00 Temperature 99.4 F Pulse Rate 107 H 108 H 104 H Respiratory Rate 20 20 Blood Pressure Pulse Oximetry 99 98 09/17/18 04:23 09/17/18 06:00 09/17/18 07:49 Temperature Pulse Rate 104 H 106 H 105 H Respiratory Rate 20 22 Blood Pressure Pulse Oximetry 09/17/18 07:50 Temperature Pulse Rate Respiratory Rate Blood Pressure Pulse Oximetry 97 Intake & Output 09/16/18 09/17/18 09/17/18 18:59 06:59 18:59 Intake Total 500 / 500 1100 / 1100 100 / 100 Output Total 4000 / 4000 100 / 100 Balance -3500 / -3500 1000 / 1000 100 / 100 Weight 145 kg Intake: IV 500 / 500 1100 / 1100 100 / 100 Heparin/D5W 25,000 U/250 mL 25, 250 / 250 250 / 250 000 unit In 250 ml @ Per Protocol IV.CONT TITRATE PRN Rx #:[id number] Primacor Inj 20 MG In NS Inj 80 100 / 100 ML @ Per Protocol IV.CONT .Q0M [facility] Rx#:[id number] Diprivan 1000 mg/100 ml Inj 1, 200 / 200 000 mg In 100 ml @ 5 MCG/KG/MIN 6.804 mls/hr IV.CONT TITRATE PRN Rx#:[id number] Zyvox 600 mg Premix 300 ML @ 600 / 600 300 mls/hr IV.SIG Q12H [facility] Rx#: [id number] Zosyn 2.25 GM Premix 50 ML @ 50 / 50 150 / 150 100 mls/hr IV.SIG Q6H [facility] Rx#: [id number] Output: Hemodialysis Amount 4000 / 4000 Urine Amount (Catheter) 100 / 100 Indwelling Urethral Catheter 100 / 100 Other: Date of Last Bowel Movement 09/15/18 09/15/18 # Bowel Movements 0 - Urinary Catheter Management Indwelling Urethral Catheter Cath placed during this visit: no <Chris Majano - Last Filed: 09/17/18 08:20> Assessment and Plan - Assessment (1) Acute kidney failure Code(s): N17.9 - Acute kidney failure, unspecified Status: Acute Plan: Baseline renal function is not known. May have renal hypoperfusion. Could have developed contrast nephropathy after CTA. Clinically she appears to fluid overloaded. Bumex drip discontinued today. Patient had right IJ hemodialysis catheter placement. 4 L removed during dialysis yesterday. Monitor for renal recovery, HD now, mainly for fluid removal. (2) Respiratory failure Code(s): J96.90 - Respiratory failure, unspecified, unspecified whether with hypoxia or hypercapnia Status: Acute Plan: Patient orally intubated. Extubation planned for after dialysis today. (3) Obesity Code(s): E66.9 - Obesity, unspecified Status: Acute Plan: patient has obesity-hypoventilation syndrome. (4) Pulmonary embolism Code(s): I26.99 - Other pulmonary embolism without acute cor pulmonale Status : Acute Plan: On Heparin. <Venkatesh Bernal - Last Filed: 09/16/18 10:40> - Assessment (1) Acute kidney failure Code(s): N17.9 - Acute kidney failure, unspecified Status: Acute (2) Respiratory failure Code(s): J96.90 - Respiratory failure, unspecified, unspecified whether with hypoxia or hypercapnia Status: Acute (3) Obesity Code(s): E66.9 - Obesity, unspecified Status: Acute (4) Pulmonary embolism Code(s): I26.99 - Other pulmonary embolism without acute cor pulmonale Status : Acute - Attending Attestation patient was seen and examined. Dialysis for volume control. Discussed Dr. Grimaldo. Agree with above assessment and plan. <Chris Majano - Last Filed: 09/17/18 08:20>
[2018-09-16] MEDS: Famotidine PF Inj 20 MG/2 ML Vial IV.PUSH SCH ×2 (12:19→20:23)
--- NOTE | 2018-09-16 13:36 | P.PNCA ---
Subjective Interval history: Patient evaluated this AM. Patient remains intubated with mild sedation. Patient does attempt to follow commands at this time. Medications and Allergies Allergies Allergy/AdvReac Type Severity Reaction Status Date / Time No Allergy Information Allergy Unverified 09/08/18 22:46 Available Home Medications Medication Instructions Recorded Confirmed Type allopurinol 100 mg PO DAILY 09/11/18 09/11/18 History cyclobenzaprine 5 mg PO TID 09/11/18 09/11/18 History furosemide 40 mg PO DAILY 09/11/18 09/11/18 History hydralazine 50 mg PO Q8HR 09/11/18 09/11/18 History insulin detemir U-100 [Levemir 24 unit SUBCUT Q12HR 09/11/18 09/11/18 History U-100 Insulin] insulin regular human [Novolin R 1 sliding scale dose SUBCUT UD 09/11/18 History Regular U-100 Insuln] levothyroxine 50 mcg PO DAILY 09/11/18 09/11/18 History meloxicam DAILY 09/11/18 History potassium chloride 20 meq PO DAILY 09/11/18 09/11/18 History pravastatin 40 mg PO HS 09/11/18 09/11/18 History pregabalin [Lyrica] 50 mg PO BID 09/11/18 09/11/18 History sertraline 50 mg PO HS 09/11/18 09/11/18 History tramadol 50 mg PO Q6H PRN 09/11/18 09/11/18 History Active Medications: Active Medications Acetaminophen (Tylenol) 650 mg PO Q6H PRN PRN Reason: PAIN 1-10 AND/OR FEVER >101F Acetaminophen (Tylenol) 650 mg PO UNSCH PRN PRN Reason: SEE LABEL COMMENTS Al Hydroxide/Mg Hydroxide (Milk Of Magnflavio Liq) 30 ml PO Q12H PRN PRN Reason: Mild Constipation Albuterol (Duoneb Neb (Prn)) 1 ampul NEB Q2HR NEB PRN PRN Reason: WHEEZING Last Admin: 09/14/18 10:45 Dose: 1 ampul Albuterol (Duoneb Neb (Marshall)) 1 ampul NEB Q4HR NEB [facility] Last Admin: 09/16/18 08:30 Dose: 1 ampul Bisacodyl (Dulcolax Supp) 10 mg RECTAL DAILY PRN PRN Reason: SEVERE CONSITIPATION Chlorhexidine Gluconate (Peridex 0.12% Oral Kit) 15 ml OROPHARYNG BID@0800, 2000 [facility] Last Admin: 09/16/18 08:24 Dose: 15 ml Clonidine HCl (Catapres) 0.1 mg PO UNSCH PRN PRN Reason: SEE LABEL COMMENTS Cyclobenzaprine HCl (Flexeril) 10 mg PO Q8H PRN PRN Reason: SPASM Last Admin: 09/14/18 18:14 Dose: 10 mg Dextrose (D50w Vial) 50 ml IV.PUSH UNSCH PRN PRN Reason: PER HYPOGLYCEMIA PROTOCOL Diphenhydramine HCl (Benadryl) 25 mg PO UNSCH PRN PRN Reason: SEE LABEL COMMENTS Famotidine (Pepcid Pf Inj) 10 mg IV.PUSH Q12HR [facility] Last Admin: 09/16/18 12:19 Dose: 10 mg Gelatin (Gelfoam 12 Mm/7 Mm Topical) 1 foam TOPICAL PRN PRN PRN Reason: help stop bleeding from site Gentamicin Sulfate (Gentamicin Inj) 20 mg OTHER WITH DIALYSIS PRN PRN Reason: Dwell Gentamycin Lock Last Admin: 09/13/18 15:07 Dose: 20 mg Glucagon (Glucagon Inj) 1 mg OTHER PRN PRN PRN Reason: for Hypoglycemia Protocol Heparin Sodium (Porcine) (Heparin Inj) 8,000 units OTHER WITH DIALYSIS PRN PRN Reason: for machine prime Heparin Sodium (Porcine) (Heparin Inj) 1,000 units OTHER WITH DIALYSIS PRN PRN Reason: Dwell Heparin to Fill Catheter Propofol (Diprivan 1000 Mg/100 Ml Inj) 1,000 mg in 100 mls @ 6.804 mls/hr IV.CONT TITRATE PRN; Protocol PRN Reason: Per Protocol Last Admin: 09/16/18 07:40 Dose: 20 mcg/kg/min, 27.22 mls/hr Diltiazem HCl 125 mg/ Sodium (Chloride) 125 mls @ 5 mls/hr IV.CONT TITRATE PRN ; Protocol PRN Reason: Per Protocol Last Titration: 09/11/18 19:00 Dose: Infused Heparin Sodium/Dextrose (Heparin/D5w 25,000 U/250 Ml) 25,000 unit in 250 mls @ 0 mls/hr IV.CONT TITRATE PRN; Protocol PRN Reason: Per Protocol Last Admin: 09/15/18 18:46 Dose: 1,400 units/hr, 14 mls/hr Piperacillin/Tazobactam/Dextrose (Zosyn 2.25 Gm Premix) 50 mls @ 100 mls/hr IV.SIG Q6H [facility] Last Infusion: 09/16/18 05:30 Dose: Infused Albumin Human (Flexbumin 25% Inj) 100 mls @ 60 mls/hr IV.SIG WITH DIALYSIS PRN PRN Reason: hypotension / volume replace Last Infusion: 09/13/18 16:50 Dose: Infused Sodium Chloride (Ns Inj) 1,000 mls @ 0 mls/hr OTHER .Q0M PRN PRN Reason: for prime and rinse back Sodium Chloride (Ns Inj) 1,000 mls @ 200 mls/hr OTHER .Q5H PRN PRN Reason: for dialyzer flush PRN Sodium Chloride (Ns Inj) 1,000 mls @ 0 mls/hr IV.CONT .Q0M PRN PRN Reason: hypotension / volume replace Milrinone Lactate 20 mg/ (Sodium Chloride) 100 mls @ 0 mls/hr IV.CONT .Q0M [facility] ; Protocol Last Admin: 09/16/18 03:35 Dose: 0.15 mcg/kg/min, 6.94 mls/hr Fentanyl (Fentanyl 10 Mcg/Ml Premix Drip) 2,500 mcg in 250 mls @ 5 mls/hr IV.SIG TITRATE PRN; Protocol PRN Reason: Per Protocol Last Titration: 09/15/18 14:15 Dose: 25 mcg/hr, 2.5 mls/hr Linezolid (Zyvox 600 Mg Premix) 300 mls @ 300 mls/hr IV.SIG Q12H [facility] Insulin Human Regular (Novolin R Correctional Sugar Inj) 0 units SQ Q4HR [facility]; Protocol Last Admin: 09/16/18 08:22 Dose: Not Given Lactulose (Lactulose Liq) 30 ml PO DAILY PRN PRN Reason: SEVERE CONSITIPATION Lactulose (Lactulose Liq) 30 ml PO BID [facility] Last Admin: 09/16/18 08:24 Dose: Not Given Mannitol (Mannitol Inj) 12.5 gm IV.PUSH UNSCH PRN PRN Reason: hypotension / volume replace Midazolam HCl (Versed Inj) 2 mg IV.PUSH Q1H PRN PRN Reason: SEDATION Last Admin: 09/14/18 08:31 Dose: 2 mg Miscellaneous Medication () 1 each OROPHARYNG 0000,0400,1200,1600 [facility] Last Admin: 09/16/18 05:04 Dose: 1 each Morphine Sulfate (Morphine Inj) 2 mg IV.PUSH Q2H PRN PRN Reason: PAIN SCALE 6 TO 10 Last Admin: 09/15/18 18:49 Dose: 2 mg Nitroglycerin (Nitrostat Sl) 0.4 mg SL Q5M PRN PRN Reason: CHEST PAIN Ondansetron HCl (Zofran Inj) 4 mg IV.PUSH Q6H PRN PRN Reason: NAUSEA OR VOMITING Ondansetron HCl (Zofran Inj) 4 mg IV.PUSH UNSCH PRN PRN Reason: NAUSEA OR VOMITING Senna/Docusate Sodium (Nereida-Colace) 1 tab PO BID [facility] Last Admin: 09/16/18 08:25 Dose: Not Given Sennosides (Senokot) 17.2 mg PO Q12H PRN PRN Reason: Moderate Constipation Sodium Chloride (Ns Flush) 2 ml IV.FLUSH BID [facility] Last Admin: 09/16/18 12:19 Dose: 2 ml Sodium Chloride (Ns Flush) 2 ml IV.FLUSH PRN PRN PRN Reason: FLUSH AFTER USING IV ACCESS Sodium Chloride (Ns Flush) 5 ml IV.FLUSH PRN PRN PRN Reason: flush each lumen during HD Physical Exam Vital signs: Vital Signs 09/15/18 13:56 09/15/18 14:00 09/15/18 14:12 Temperature Pulse Rate 96 H 98 H Respiratory Rate 19 Blood Pressure Pulse Oximetry 97 97 09/15/18 15:00 09/15/18 15:01 09/15/18 15:21 Temperature Pulse Rate 103 H 104 H 97 H Respiratory Rate 16 Blood Pressure Pulse Oximetry 99 100 09/15/18 15:52 09/15/18 16:00 09/15/18 16:01 Temperature Pulse Rate 98 H 99 H 98 H Respiratory Rate Blood Pressure 134/58 L Pulse Oximetry 99 98 09/15/18 16:32 09/15/18 17:07 09/15/18 17:11 Temperature Pulse Rate 98 H Respiratory Rate 19 Blood Pressure Pulse Oximetry 97 99 09/15/18 20:00 12/16/18 20:51 09/15/18 20:52 Temperature 99.0 F Pulse Rate 103 H 100 H Respiratory Rate 16 16 16 Blood Pressure 123/60 Pulse Oximetry 98 100 09/15/18 22:00 09/15/18 23:44 09/16/18 00:00 Temperature 98.9 F Pulse Rate 100 H 97 H 101 H Respiratory Rate 16 16 Blood Pressure 112/55 L Pulse Oximetry 99 100 09/16/18 02:00 09/16/18 04:00 09/16/18 04:21 Temperature 98.9 F Pulse Rate 97 H 97 H 98 H Respiratory Rate 16 17 Blood Pressure 92/51 L Pulse Oximetry 98 98 09/16/18 06:00 09/16/18 07:00 09/16/18 08:00 Temperature Pulse Rate 98 H 96 H Respiratory Rate 16 16 Blood Pressure Pulse Oximetry 99 09/16/18 11:21 09/16/18 11:22 Temperature Pulse Rate 98 H Respiratory Rate 16 18 Blood Pressure Pulse Oximetry 100 Intake & Output 09/15/18 09/16/18 09/16/18 18:59 06:59 18:59 Intake Total 900 / 900 950 / 950 100 / 100 Output Total 4300 / 4300 100 / 100 4000 / 4000 Balance -3400 / -3400 850 / 850 -3900 / -3900 Weight 142.6 kg Intake: IV 900 / 900 400 / 400 100 / 100 Bumex Inj 25 mg In 100 ml @ 0.5 100 / 100 MG/HR 2 mls/hr IV.CONT .Q24H [facility] Rx#:[id number] Heparin/D5W 25,000 U/250 mL 25, 250 / 250 000 unit In 250 ml @ Per Protocol IV.CONT TITRATE PRN Rx #:[id number] Primacor Inj 20 MG In NS Inj 80 100 / 100 100 / 100 ML @ Per Protocol IV.CONT .Q0M [facility] Rx#:[id number] Diprivan 1000 mg/100 ml Inj 1, 100 / 100 200 / 200 100 / 100 000 mg In 100 ml @ 5 MCG/KG/MIN 6.804 mls/hr IV.CONT TITRATE PRN Rx#:[id number] Zosyn 2.25 GM Premix 50 ML @ 100 / 100 100 / 100 100 mls/hr IV.SIG Q6H [facility] Rx#: [id number] fentaNYL 10 mcg/mL Premix Drip 250 / 250 2,500 mcg In 250 ml @ 50 MCG/HR 5 mls/hr IV.SIG TITRATE PRN Rx #:[id number] Tube Feeding 550 / 550 Output: Hemodialysis Amount 4000 / 4000 4000 / 4000 Urine Amount (Catheter) 300 / 300 100 / 100 Indwelling Urethral Catheter 300 / 300 100 / 100 Other: Date of Last Bowel Movement 09/15/18 09/15/18 # Bowel Movements 1 - Constitutional no acute distress - Routine HEENT Exam Head: Present: normocephalic Eye: Present: PERRL ENT: Present: mucous membranes moist - Routine Neck Exam Present: supple - Routine Respiratory Exam Present: patient mechanically ventilated, rhonchi Comments: rhonchi throughout right and left lungs - Routine Cardiovascular Exam Present: S1, S2. Absent: murmur, gallop, rubs - Routine Abdominal Exam Present: normoactive bowel sounds - Routine Extremities Exam Present: edema, pulses intact, normal capillary refill. Absent: cyanosis, clubbing - Routine Skin Exam Present: intact - Routine Neurological Exam mild sedation but does attempt to follow commands. - Detailed Neurological Exam: Coma Scale Eye Opening: To sound Verbal Response: None Motor Response: Obey commands Jordyn Coma Scale Total: 10 - Routine Psychiatric Exam Present: unable to assess - Urinary Catheter Management Indwelling Urethral Catheter Cath placed during this visit: yes Reason for continuing: Hourly intake/output Insertion date: 09/08/18 Insertion time: 22:52 Results 09/16/18 04:20 09/16/18 04:20 Cardiac Enzymes 09/16/18 Range/Units 04:20 AST 27 (15-37) U/L Coagulation 09/14/18 09/14/18 09/15/18 Range/Units 15:55 21:10 04:10 APTT 41.1 H 41.2 H 43.2 H (23.4-31.7) sec 09/16/18 09/16/18 Range/Units 04:20 11:00 APTT 37.3 H 41.3 H (23.4-31.7) sec CBC 09/15/18 09/16/18 Range/Units 04:10 04:20 WBC 8.1 11.1 H (4.0-11.0) th/mm3 RBC 3.91 L 3.99 L (4.00-5.30) mil/mm3 Hgb 10.3 L 10.3 L (11.6-15.3) gm/dL Hct 31.9 L 31.6 L (35.0-46.0) % Plt Count 296 354 (150-450) th/mm3 Neut # (Auto) 4.7 (1.8-7.7) th/mm3 Lymph # (Auto) 1.8 (1.0-4.8) th/mm3 Hale # (Auto) 0.7 (0.0-0.9) th/mm3 Eos # (Auto) 0.8 H (0.0-0.4) th/mm3 Baso # (Auto) 0.0 (0.0-0.2) th/mm3 Comprehensive Metabolic Panel 09/15/18 09/16/18 Range/Units 04:10 04:20 Sodium 140 137 (136-145) meq/L Potassium 3.3 L 3.1 L (3.5-5.1) meq/L Chloride 101 97 L (98-107) meq/L Carbon Dioxide 27.4 26.8 (21.0-32.0) meq/L BUN 45 H 37 H (7-18) mg/dL Creatinine 6.16 H 5.63 H (0.50-1.00) mg/dL Calcium 9.5 9.7 (8.5-10.1) mg/dL AST 27 (15-37) U/L ALT 32 (10-53) U/L Alkaline Phosphatase 86 (45-117) U/L Total Protein 8.5 H (6.4-8.2) g/dL Albumin 3.1 L (3.4-5.0) g/dL Intake and Output 09/15/18 09/16/18 09/16/18 22:59 06:59 14:59 Intake Total 350 / 350 900 / 900 100 / 100 Output Total 300 / 300 100 / 100 4000 / 4000 Balance 50 / 50 800 / 800 -3900 / -3900 Intake: IV 350 / 350 350 / 350 100 / 100 Heparin/D5W 25,000 U/250 mL 25, 250 / 250 000 unit In 250 ml @ Per Protocol IV.CONT TITRATE PRN Rx #:[id number] Primacor Inj 20 MG In NS Inj 80 100 / 100 ML @ Per Protocol IV.CONT .Q0M [facility] Rx#:[id number] Diprivan 1000 mg/100 ml Inj 1, 200 / 200 100 / 100 000 mg In 100 ml @ 5 MCG/KG/MIN 6.804 mls/hr IV.CONT TITRATE PRN Rx#:[id number] Zosyn 2.25 GM Premix 50 ML @ 100 / 100 50 / 50 100 mls/hr IV.SIG Q6H [facility] Rx#: [id number] Tube Feeding 550 / 550 Output: Hemodialysis Amount 4000 / 4000 Urine Amount (Catheter) 300 / 300 100 / 100 Indwelling Urethral Catheter 300 / 300 100 / 100 Other: Date of Last Bowel Movement 09/15/18 09/15/18 # Bowel Movements 1 Weight 142.6 kg - Imaging and Cardiology Imaging: Impressions Chest X-Ray 09/15/18 04:00 CONCLUSION: Enlargement of cardiac silhouette. Diffuse consolidation likely related to diffuse processes such as edema. Further increased density in the left perihilar region and the inferior aspect of the right upper lobe related to some further consolidation. Chest X-Ray 09/16/18 06:00 CONCLUSION: 1. Persistent right upper lobe consolidation and slightly improving left upper lobe consolidation. 2. Stable cardiomegaly. Assessment and Plan - Assessment (1) Acute kidney failure Code(s): N17.9 - Acute kidney failure, unspecified Status: Acute (2) Respiratory failure Code(s): J96.90 - Respiratory failure, unspecified, unspecified whether with hypoxia or hypercapnia Status: Acute (3) Obesity Code(s): E66.9 - Obesity, unspecified Status: Acute - Plan Patient is receiving HD, tolerated well, renal evaluation in progress. No new cardiac issues at this time, continue with current cardiac treatment plan. Continue to titrate Milrinone for CHF treatment. Patients prognosis remains very poor, palliative care evaluation in progress. We will continue to monitor the patient during her hospitalization. The patient was seen and evaluated by Dr. Law who participated in care, management and decision making. - Attending Attestation Patient seen and examined. I reviewed and agree with the evaluation and plan as presented. Continue tx for CHF. Continue HD. Extubated earlier. D/w pt and family.
[2018-09-16] MEDS: Heparin Drip 25,000 UNIT/250 ML BAG IV.CONT PRN (13:52)
[2018-09-16 14:23] LABS: ABG Base Excess 2.5 mmol/L (-2-2); ABG PCO2 41 mmHg (38-42); ABG PO2 105 mmHG (61-120)
[2018-09-16] MEDS: Acetaminophen 325 MG Tablet PO PRN (15:46)
--- NOTE | 2018-09-16 16:21 | P.PNPAL ---
Reason for Visit Reason for visit: a. To assist with evaluation and management of symptoms including: dyspnea, pain, debility. b. To assist medical decision maker(s) with: better understanding of current medical conditions; weighing benefits/burdens of medical treatment options; making medical treatment decisions. Subjective Subjective/Interval History: Patient seen and examined in ICU. Daughter, Avelina and her , Viri at bedside. Also present Gisela Roman LCSW. Patient was medically extubated and cleaned up just prior to my visit. She is awake and alert, able to answer questions appropriately with a weak voice. Follows commands. She understands recent cardiac, pulmonary and renal issues. She indicates her desire for continued aggressive care including (FULL CODE) reintubation and cardiac resuscitation if needed. Updated family on plan for speech eval in the coming day(s) and may need to reevaluate need for tube feeding if she does not pass swallow test, patient is nodding no then indicates she does not like tube feeding because it causes diarrhea. We assisted patient is completing designation of health care surrogate in follow up from our conversation last week, where patient indicated she wants her daughter to serve as HCS should she become incapacitated. Patient again verbalizes her desire for her daughter to serve as HCS, stating her doesn't understand the medical. Family reports he is from [place] and looks to Avelina for guidance, patient agrees. Copy sent to HIM to be scanned into EMR and original given to daughter. Ms. Hadley is tolerating oxygen via mask. She denies shortness of breath or pain during my visit. She tells me she is tired. Medical update provided including need for continued HD (unable to determine at this time if it will be temporary or permanent, nephrology felt likely temporary last week), possible need for reintubation in the future and that underlying heart disease cannot be cured. Advised family patient remains high risk for further setbacks now and in the future. Family seems open to the conversation, though goals remain aggressive. Post hemodialysis 09/17/18 with removal of 4 L of fluid. WBC 11.1, hemoglobin 10.3, platelet count 354. Creatinine 5.63, BUN 37, GFR 8. Albumin 3.1. Cultures negative to date. Questions answered to family satisfaction. Palliative care number previously provided. Family/Friend Interactions: See interval note. Advance Directives Living Will: Never completed Health Care Surrogate: Copy in medical record Durable Power of Curriculum Writer: Never completed Health Care Surrogate Name and Number: ANKUR, Avelina Hadley, daughter: [phone] Documented care wishes:: No Living Will. Completed designation of health care surrogate on 09/16/18 naming her daughter Avelina Hadley as ANKUR. Significant change in goals:: Patient desires continued aggressive care including FULL CODE and reintubation if needed. Objective Vital Signs: Vital Signs 09/15/18 16:00 09/15/18 16:01 09/15/18 16:32 Temperature Pulse Rate 99 H 98 H Respiratory Rate 19 Blood Pressure 134/58 L Pulse Oximetry 99 98 97 09/15/18 17:07 09/15/18 17:11 09/15/18 20:00 Temperature 99.0 F Pulse Rate 98 H 103 H Respiratory Rate 16 Blood Pressure 123/60 Pulse Oximetry 99 98 09/15/18 20:51 09/15/18 20:52 09/15/18 22:00 Temperature Pulse Rate 100 H 100 H Respiratory Rate 16 16 Blood Pressure Pulse Oximetry 100 09/15/18 23:44 09/16/18 00:00 09/16/18 02:00 Temperature 98.9 F Pulse Rate 97 H 101 H 97 H Respiratory Rate 16 16 Blood Pressure 112/55 L Pulse Oximetry 99 100 09/16/18 04:00 09/16/18 04:21 09/16/18 06:00 Temperature 98.9 F Pulse Rate 97 H 98 H 98 H Respiratory Rate 16 17 Blood Pressure 92/51 L Pulse Oximetry 98 98 09/16/18 07:00 09/16/18 08:00 09/16/18 11:21 Temperature Pulse Rate 96 H 98 H Respiratory Rate 16 16 16 Blood Pressure Pulse Oximetry 99 09/16/18 11:22 09/16/18 15:39 Temperature Pulse Rate 96 H Respiratory Rate 18 18 Blood Pressure Pulse Oximetry 100 Intake & Output 09/15/18 09/16/18 09/16/18 18:59 06:59 18:59 Intake Total 900 / 900 950 / 950 400 / 400 Output Total 4300 / 4300 100 / 100 4000 / 4000 Balance -3400 / -3400 850 / 850 -3600 / -3600 Weight 142.6 kg Intake: IV 900 / 900 400 / 400 400 / 400 Bumex Inj 25 mg In 100 ml @ 0.5 100 / 100 MG/HR 2 mls/hr IV.CONT .Q24H [facility] Rx#:[id number] Heparin/D5W 25,000 U/250 mL 25, 250 / 250 250 / 250 000 unit In 250 ml @ Per Protocol IV.CONT TITRATE PRN Rx #:[id number] Primacor Inj 20 MG In NS Inj 80 100 / 100 100 / 100 ML @ Per Protocol IV.CONT .Q0M [facility] Rx#:[id number] Diprivan 1000 mg/100 ml Inj 1, 100 / 100 200 / 200 100 / 100 000 mg In 100 ml @ 5 MCG/KG/MIN 6.804 mls/hr IV.CONT TITRATE PRN Rx#:[id number] Zosyn 2.25 GM Premix 50 ML @ 100 / 100 100 / 100 50 / 50 100 mls/hr IV.SIG Q6H [facility] Rx#: [id number] fentaNYL 10 mcg/mL Premix Drip 250 / 250 2,500 mcg In 250 ml @ 50 MCG/HR 5 mls/hr IV.SIG TITRATE PRN Rx #:[id number] Tube Feeding 550 / 550 Output: Hemodialysis Amount 4000 / 4000 4000 / 4000 Urine Amount (Catheter) 300 / 300 100 / 100 Indwelling Urethral Catheter 300 / 300 100 / 100 Other: Date of Last Bowel Movement 09/15/18 09/15/18 # Bowel Movements 1 Physical Exam: CONSTITUTIONAL/GENERAL: This is an overweight female, [facility]. TUBES/LINES/DRAINS: right subclavian central line, vas-cath, a-line, PIV, Edwards. Bariatric bed. SKIN: No jaundice, rashes, or lesions. Ecchymoses on upper extremities. No wounds seen anteriorly. Skin temperature appropriate. Not diaphoretic. EYES: pupils equal and reactive. ENT: hearing adequate. Nose without bleeding or purulent drainage. Throat difficult to visualize secondary to oxygen mask. CARDIOVASCULAR: Distant heart sounds. Regular rate and rhythm without murmurs. RESPIRATORY/CHEST: unlabored respirations. Diminished, breath sounds. GASTROINTESTINAL: Abdomen protuberant, soft, nondistended. No guarding. Bowel sounds distant. GENITOURINARY: Without palpable bladder distension. Edwards catheter in place. MUSCULOSKELETAL: Extremities with edema. NEUROLOGICAL: Awake and alert, follows commands. Communicating via weak voice. PSYCHIATRIC: Calm. Diagnostic Tests Laboratory: Laboratory Results - last 72 hr 09/13/18 09/14/18 09/14/18 21:08 01:07 03:30 WBC 9.6 RBC 3.94 L Hgb 10.3 L Hct 31.9 L MCV 80.8 MCH 26.2 L MCHC 32.4 RDW 17.1 Plt Count 310 MPV 8.3 Neut % (Auto) Lymph % (Auto) [place] % (Auto) Eos % (Auto) Baso % (Auto) Neut # (Auto) Lymph # (Auto) [place] # (Auto) Eos # (Auto) Baso # (Auto) WBC Differential Differential Comment APTT Puncture Site Patient Temperature O2 Saturation ABG pH ABG pCO2 ABG pO2 ABG HCO3 ABG O2 Content ABG Base Excess ABG Methemoglobin Gabe Test Hemoglobin Carboxyhemoglobin O2 Delivery Device Vent Setting Inspired O2 Critical Value Sodium Potassium Chloride Carbon Dioxide Anion Gap BUN Creatinine Estimated GFR POC Glucose 108 142 H Random Glucose Calcium Phosphorus Magnesium Total Bilirubin AST ALT Alkaline Phosphatase Total Protein Albumin 09/14/18 09/14/18 09/14/18 03:30 05:00 08:09 WBC RBC Hgb Hct MCV MCH MCHC RDW Plt Count MPV Neut % (Auto) Lymph % (Auto) [place] % (Auto) Eos % (Auto) Baso % (Auto) Neut # (Auto) Lymph # (Auto) [place] # (Auto) Eos # (Auto) Baso # (Auto) WBC Differential Differential Comment APTT 37.5 H Puncture Site Patient Temperature O2 Saturation ABG pH ABG pCO2 ABG pO2 ABG HCO3 ABG O2 Content ABG Base Excess ABG Methemoglobin Gabe Test Hemoglobin Carboxyhemoglobin O2 Delivery Device Vent Setting Inspired O2 Critical Value Sodium 141 Potassium 3.6 Chloride 100 Carbon Dioxide 27.6 Anion Gap 13 BUN 31 H Creatinine 4.71 H Estimated GFR 10 L POC Glucose 175 H Random Glucose 156 H Calcium 9.0 Phosphorus Magnesium 2.3 Total Bilirubin 0.4 AST 27 ALT 41 Alkaline Phosphatase 104 Total Protein 8.4 H D Albumin 3.3 L D 09/14/18 09/14/18 09/14/18 08:14 15:46 15:55 WBC RBC Hgb Hct MCV MCH MCHC RDW Plt Count MPV Neut % (Auto) Lymph % (Auto) [place] % (Auto) Eos % (Auto) Baso % (Auto) Neut # (Auto) Lymph # (Auto) [place] # (Auto) Eos # (Auto) Baso # (Auto) WBC Differential Differential Comment APTT 41.1 H Puncture Site Patient Temperature O2 Saturation ABG pH ABG pCO2 ABG pO2 ABG HCO3 ABG O2 Content ABG Base Excess ABG Methemoglobin Gabe Test Hemoglobin Carboxyhemoglobin O2 Delivery Device Vent Setting Inspired O2 Critical Value Sodium Potassium Chloride Carbon Dioxide Anion Gap BUN Creatinine Estimated GFR POC Glucose 102 159 H Random Glucose Calcium Phosphorus Magnesium Total Bilirubin AST ALT Alkaline Phosphatase Total Protein Albumin 09/14/18 09/14/18 09/15/18 20:00 21:10 00:59 WBC RBC Hgb Hct MCV MCH MCHC RDW Plt Count MPV Neut % (Auto) Lymph % (Auto) [place] % (Auto) Eos % (Auto) Baso % (Auto) Neut # (Auto) Lymph # (Auto) [place] # (Auto) Eos # (Auto) Baso # (Auto) WBC Differential Differential Comment APTT 41.2 H Puncture Site Patient Temperature O2 Saturation ABG pH ABG pCO2 ABG pO2 ABG HCO3 ABG O2 Content ABG Base Excess ABG Methemoglobin Gabe Test Hemoglobin Carboxyhemoglobin O2 Delivery Device Vent Setting Inspired O2 Critical Value Sodium Potassium Chloride Carbon Dioxide Anion Gap BUN Creatinine Estimated GFR POC Glucose 133 H 174 H Random Glucose Calcium Phosphorus Magnesium Total Bilirubin AST ALT Alkaline Phosphatase Total Protein Albumin 09/15/18 09/15/18 09/15/18 04:10 04:10 04:10 WBC 8.1 RBC 3.91 L Hgb 10.3 L Hct 31.9 L MCV 81.8 MCH 26.3 L MCHC 32.2 RDW 17.2 Plt Count 296 MPV 7.8 Neut % (Auto) 58.7 Lymph % (Auto) 22.0 [place] % (Auto) 8.4 H Eos % (Auto) 10.4 H Baso % (Auto) 0.5 Neut # (Auto) 4.7 Lymph # (Auto) 1.8 [place] # (Auto) 0.7 Eos # (Auto) 0.8 H Baso # (Auto) 0.0 WBC Differential . Differential Comment Auto diff final APTT 43.2 H Puncture Site Patient Temperature O2 Saturation ABG pH ABG pCO2 ABG pO2 ABG HCO3 ABG O2 Content ABG Base Excess ABG Methemoglobin Gabe Test Hemoglobin Carboxyhemoglobin O2 Delivery Device Vent Setting Inspired O2 Critical Value Sodium 140 Potassium 3.3 L Chloride 101 Carbon Dioxide 27.4 Anion Gap 12 BUN 45 H Creatinine 6.16 H Estimated GFR 7 L POC Glucose Random Glucose 115 H Calcium 9.5 Phosphorus 8.1 H Magnesium 2.4 Total Bilirubin AST ALT Alkaline Phosphatase Total Protein Albumin 09/15/18 09/15/18 09/15/18 04:22 12:18 21:07 WBC RBC Hgb Hct MCV MCH MCHC RDW Plt Count MPV Neut % (Auto) Lymph % (Auto) [place] % (Auto) Eos % (Auto) Baso % (Auto) Neut # (Auto) Lymph # (Auto) [place] # (Auto) Eos # (Auto) Baso # (Auto) WBC Differential Differential Comment APTT Puncture Site Patient Temperature O2 Saturation ABG pH ABG pCO2 ABG pO2 ABG HCO3 ABG O2 Content ABG Base Excess ABG Methemoglobin Gabe Test Hemoglobin Carboxyhemoglobin O2 Delivery Device Vent Setting Inspired O2 Critical Value Sodium Potassium Chloride Carbon Dioxide Anion Gap BUN Creatinine Estimated GFR POC Glucose 120 H 136 H 137 H Random Glucose Calcium Phosphorus Magnesium Total Bilirubin AST ALT Alkaline Phosphatase Total Protein Albumin 09/16/18 09/16/18 09/16/18 00:17 04:20 04:20 WBC 11.1 H RBC 3.99 L Hgb 10.3 L Hct 31.6 L MCV 79.3 L MCH 25.9 L MCHC 32.6 RDW 17.2 Plt Count 354 MPV 7.0 Neut % (Auto) Lymph % (Auto) [place] % (Auto) Eos % (Auto) Baso % (Auto) Neut # (Auto) Lymph # (Auto) [place] # (Auto) Eos # (Auto) Baso # (Auto) WBC Differential Differential Comment APTT 37.3 H Puncture Site Patient Temperature O2 Saturation ABG pH ABG pCO2 ABG pO2 ABG HCO3 ABG O2 Content ABG Base Excess ABG Methemoglobin Gabe Test Hemoglobin Carboxyhemoglobin O2 Delivery Device Vent Setting Inspired O2 Critical Value Sodium Potassium Chloride Carbon Dioxide Anion Gap BUN Creatinine Estimated GFR POC Glucose 148 H Random Glucose Calcium Phosphorus Magnesium Total Bilirubin AST ALT Alkaline Phosphatase Total Protein Albumin 09/16/18 09/16/18 09/16/18 04:20 08:04 11:00 WBC RBC Hgb Hct MCV MCH MCHC RDW Plt Count MPV Neut % (Auto) Lymph % (Auto) [place] % (Auto) Eos % (Auto) Baso % (Auto) Neut # (Auto) Lymph # (Auto) [place] # (Auto) Eos # (Auto) Baso # (Auto) WBC Differential Differential Comment APTT 41.3 H Puncture Site Patient Temperature O2 Saturation ABG pH ABG pCO2 ABG pO2 ABG HCO3 ABG O2 Content ABG Base Excess ABG Methemoglobin Gabe Test Hemoglobin Carboxyhemoglobin O2 Delivery Device Vent Setting Inspired O2 Critical Value Sodium 137 Potassium 3.1 L Chloride 97 L Carbon Dioxide 26.8 Anion Gap 13 BUN 37 H Creatinine 5.63 H Estimated GFR 8 L POC Glucose 155 H Random Glucose 126 H Calcium 9.7 Phosphorus Magnesium Total Bilirubin 0.4 AST 27 ALT 32 Alkaline Phosphatase 86 Total Protein 8.5 H Albumin 3.1 L 09/16/18 09/16/18 09/16/18 12:14 14:10 15:42 WBC RBC Hgb Hct MCV MCH MCHC RDW Plt Count MPV Neut % (Auto) Lymph % (Auto) [place] % (Auto) Eos % (Auto) Baso % (Auto) Neut # (Auto) Lymph # (Auto) [place] # (Auto) Eos # (Auto) Baso # (Auto) WBC Differential Differential Comment APTT Puncture Site [place] Patient Temperature 98.6 O2 Saturation 95 ABG pH 7.43 H ABG pCO2 41 ABG pO2 105 ABG HCO3 27 H ABG O2 Content 15.8 ABG Base Excess 2.5 H ABG Methemoglobin 1.6 Gabe Test Present Hemoglobin 11.7 L Carboxyhemoglobin 0.9 O2 Delivery Device Ventilator Vent Setting Cpap+7/ps+8 Inspired O2 35 Critical Value No Sodium Potassium Chloride Carbon Dioxide Anion Gap BUN Creatinine Estimated GFR POC Glucose 152 H 188 H Random Glucose Calcium Phosphorus Magnesium Total Bilirubin AST ALT Alkaline Phosphatase Total Protein Albumin Result Diagrams: 09/16/18 04:20 09/16/18 04:20 Microbiology: Microbiology 09/09/18 00:30 Aerobic Blood Culture - Final Blood - Peripheral No growth in 5 days Anaerobic Blood Culture - Final No growth in 5 days 09/09/18 00:35 Aerobic Blood Culture - Final Blood - Peripheral No growth in 5 days Anaerobic Blood Culture - Final No growth in 5 days Imaging: Abdomen Ultrasound 09/09/18 00:00 CONCLUSION: 1. Enlarged echogenic liver suggesting fatty infiltration 2. , Gallbladder not visualized Chest CTA 09/09/18 00:00 CONCLUSION: 1. Very limited examination due to patient body habitus. 2. Elongated filling defect in the right pulmonary artery suspicious for pulmonary embolus. Prominent artifact related to patient body habitus is seen through out the central pulmonary arteries limiting the evaluation. The segmental and subsegmental branches cannot be effectively evaluated on this study. Nuclear medicine VQ scan could be performed for further evaluation. 3. Moderate diffuse cardiomegaly. 4. Moderate-sized area of right lower lobe pulmonary consolidation. 5. Bilateral dependent lower lobe atelectasis. Head CT 09/09/18 00:00 CONCLUSION: No acute intracranial findings. . Venous Doppler Study 09/09/18 00:00 CONCLUSION: 1. Negative exam with no evidence of deep venous thrombosis. Chest X-Ray 09/16/18 06:00 CONCLUSION: 1. Persistent right upper lobe consolidation and slightly improving left upper lobe consolidation. 2. Stable cardiomegaly. Procedures: * 09/12/18 - a line, vas-cath placement, HD started * 09/08/18 - intubated Assessment and Plan - Disease Oriented Problem List (1) Acute kidney failure (2) Respiratory failure (3) Obesity (4) Pulmonary embolism - Symptom Scale (1) Chronic pain 0-10 Scale: 0 (2) Dyspnea 0-10 Scale: 0 Pertinent Non-Medical Issues: Psychosocial: . 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 Has 1 daughter, Avelina. Spiritual: [employer]. Legal: Patient is currently capacitated to make her own health care decisions. No Living Will. Completed designation of health care surrogate on 09/16/18 naming her daughter Avelina Hadley as HCS. Ethical issues impacting care: No known concerns at this time. Important Contacts: * Avelina Hadley, daughter/ health care surrogate: [phone] * Audra (sp?) Ramana, spouse: [phone] Prognosis: Mrs. Hadley is a 47 year old chronically, critically ill patient with multiple comorbidities now with respiratory, renal and heart failure. Overall prognosis appears poor. Code Status: Full Code Plan: * Decision maker: Patient is capacitated to make her own health care decisions. No Living Will. Completed designation of health care surrogate on 09/16/18 naming her daughter Avelina Hadley as HCS. * FULL CODE - confirmed with pt on 09/16/18 post medical extubation, she desires reintubation if needed. * Medical update provided. Patient and her family desire continued aggressive care including FULL CODE. * SYMPTOMS: Pain: denies pain during my visit. Potential pain sources include tubes, bedbound status, multiorgan failure. Dyspnea:medically extubated on 09/16. On oxygen via mask, tolerating well. Denies SOB. Debility: due to elevated BMI, recent, respiratory, renal and heart failure. No new medication recommendations at this time. * Palliative care will continue to follow to assist with symptom management and further clarification of goals of medical treatment as needed. . Attestation Attestation: To help prompt me to consider important information that might be impacting today's encounter and assessment, information from prior notes written by myself or my colleagues may have been "brought forward" into today's note. My signature on this note, however, is an attestation that I personally performed the exam, history, and/or decision-making noted today, and, unless otherwise indicated, the interactions with patient, family, and staff as well as the review of records all occurred today. I also attest that the listed assessment and stated plan reflect my best clinical judgment today based on the combination of historical information, prior notes, and today's exam/ interactions. When time spent is documented, it refers only to time spent today by the signer, or if indicated, combined time spent today by collaborating physician/nurse practitioner.
[2018-09-17] MEDS: Oral Hygiene Kit OROPHARYNG SCH ×3 (03:36→17:41)
[2018-09-17] MEDS: Insulin NovoLIN Regular Correctional Sugar Inj SQ SCH ×5 (03:36→19:54)
[2018-09-17] MEDS: Piperacil/Tazo 2.25 GM Premix 50 ML IV.SIG SCH ×4 (03:37→22:34)
--- NOTE | 2018-09-17 05:48 | XR ---
EXAM DATE: 09/17/2018 5:37 AM EST AGE/SEX: 47 years / Female INDICATIONS: Short of breath. CLINICAL DATA: This is the patient's subsequent encounter. Patient reports that signs and symptoms h ave been present for 1 week and indicates a pain score of 0/10. MEDICAL/SURGICAL HISTORY: Congestive heart failure. Non-responsive. COMPARISON: [facility], CHEST 1V SINGLE AP, 09/16/2018. . FINDINGS: Interval extubation and removal of gastric tube. Large body habitus. Right internal jugular catheter tip projects in the right atrium. There is fullness of the perihilar structures suggesting engorgemen t and infiltrate. Portions of both hemidiaphragms are delineated. Cardiomegaly stable from prior. CONCLUSION: Increasing prominence and indistinctness of the central bronchopulmonary markings. Persistent left lo wer lobe consolidation. Electronically signed by: Ankur Carr MD Board Certified Radiologist 09/17/2018 5:47 AM EST
[2018-09-17] MEDS: Heparin Drip 25,000 UNIT/250 ML BAG IV.CONT PRN ×2 (06:34→22:36)
[2018-09-17 07:35] LABS: Hematocrit 35.8 % (35.0-46.0); Hemoglobin 11.3 gm/dL (11.6-15.3); Mean Corpuscular HGB Conc 31.5 % (32.0-36.0); Mean Corpuscular Hemoglobin 25.9 pg (27.0-34.0); Mean Corpuscular Volume 82.3 fL (80.0-100.0); Mean Platelet Volume 7.8 fL (7.0-11.0); Platelet Count 417 th/mm3 (150-450); Red Blood Count 4.35 mil/mm3 (4.00-5.30); Red Cell Distribution Width 17.4 % (11.6-17.2); White Blood Count 13.5 th/mm3 (4.0-11.0)
[2018-09-17 07:56] LABS: Alanine Aminotransferase 26 U/L (10-53); Albumin 3.4 g/dL (3.4-5.0); Anion Gap 15 meq/L (5-15); Aspartate Aminotransferase 22 U/L (15-37); Blood Urea Nitrogen 37 mg/dL (7-18); Calcium 9.9 mg/dL (8.5-10.1); Carbon Dioxide 27.6 meq/L (21.0-32.0); Chloride 94 meq/L (98-107); Glomerular Filtration Rate 7 mL/min (>89); Glucose,Random 128 mg/dL (74-106); Potassium 3.6 meq/L (3.5-5.1); Sodium 137 meq/L (136-145)
[2018-09-17 07:59] LABS: Alkaline Phosphatase 93 U/L (45-117); Total Protein 9.8 g/dL (6.4-8.2)
[2018-09-17] MEDS: Famotidine PF Inj 20 MG/2 ML Vial IV.PUSH SCH ×2 (08:06→20:17)
[2018-09-17] MEDS: Senna/Docusate Sodium 8.6/50 MG Tablet PO SCH ×2 (08:06→20:18)
[2018-09-17] MEDS: Chlorhexidine 0.12% Oral Kit 15 ML UDC OROPHARYNG SCH ×2 (08:06→19:54)
--- NOTE | 2018-09-17 08:19 | P.PNCC ---
Subjective Subjective Remarks/Hospital Course: Middle-aged morbidly obese female was brought in emergently department by EMS due to respiratory failure and unresponsiveness. She was brought in being bagged by BV. Patient was a GCS of 3 upon arrival and hence in no condition to give any history. As per EMS the call went out as shortness of breath while patient got into the car. When they arrived she was in severe respiratory distress. They put her on BiPAP but shortly patient started to lose consciousness with agonal respirations. Family was at the scene and informed EMS that she has history of congestive heart failure. Patient was tachycardic upon arrival with heart rate in 170s. It appeared to be irregularly irregular on the monitor. She was immediately intubated by ED attending with improvement in her heart rate. There is no additional history available. Per report, the family admits the patient has been taking a lot of medications but they are unaware of the names or reasons. 09/10 Patient remains sedated with Diprivan and intubated. Renal function is worsening with Cr: 4.02 from 2.60. Afebrile. On Heparin drip. 09/11: Patient remains intubated sedated critically ill. Urine output has improved with Bumex infusion however creatinine has worsened from 4-5.5 today. D/W with nephrology-no acute indication for dialysis however considering creatinine worsening, will reduce Bumex infusion 0.5 mg/h. Chest x-ray is pending at this time 09/12: Remains intubated sedated with propofol however wakes up and follows commands. Creatinine worsening 6.5 today. Even though her urine output has improved on Bumex infusion 3 L in 24 hours, patient has increasing pulmonary vascular congestion and pulmonary edema. Discussed with nephrology. Will place hemodialysis catheter and start dialysis today for fluid removal. 09/13: Remains intubated sedated with propofol, started on hemodialysis yesterday achieving negative balance. However pulmonary edema persistent. Wakes up to command weakly follows. Creatinine slightly improved with dialysis. Urine output 1.8 L in 24 hours 09/14: Patient sedated on fentanyl and propofol infusions. Cardiac index now 2.8, the patient continues on milrinone. Chest x-ray reveals pulmonary edema, patient was dialyzed 4 L removed yesterday and urine output 1150 in the last 24 hours. 09/15: Remains lightly sedated on low-dose propofol and fentanyl. Wakes up easily follows commands. Currently on milrinone 0.2 mcg/kg/min. Reduce to 0.15 mcg/kg/min due to mild hypotension. Start CPAP trials. Urine output 700 mL. Discussed with nephrology dialyzed today. Chest x-ray remains essentially unchanged on my review with some persistent pulmonary edema but overall improving 09/16: Patient continues to achieve negative balance with hemodialysis. 4 L removed yesterday, dialysis again today. Plan for CPAP trial after hemodialysis. Lightly sedated with propofol and fentanyl. Continue milrinone at 0.15 mcg/kg/min. Cardiac index 2.2 09/17: Patient was extubated yesterday maintaining oxygen saturation on Ventimask. Chest x-ray shows worsening pulmonary edema. Patient is almost anuric now. I have discussed with Dr. Majano regarding hemodialysis sooner today. He is agreeable. Continues to be on milrinone at the lowest dose. Cardiac index maintained at 2.2. Will attempt to get a limited echo as the patient is extubated to evaluate ejection fraction Objective Vital Signs / I&O: Vital Signs 09/16/18 10:00 09/16/18 11:21 09/16/18 11:22 Temperature Pulse Rate 99 H 98 H Respiratory Rate 16 18 Blood Pressure Pulse Oximetry 100 09/16/18 12:00 09/16/18 14:00 09/16/18 15:39 Temperature 98.4 F Pulse Rate 100 H 98 H 96 H Respiratory Rate 18 18 Blood Pressure 95/64 L Pulse Oximetry 98 09/16/18 16:00 09/16/18 18:00 09/16/18 20:00 Temperature 97.9 F 98.3 F Pulse Rate 97 H 100 H 103 H Respiratory Rate 20 22 Blood Pressure Pulse Oximetry 98 100 09/16/18 21:08 09/16/18 22:00 09/16/18 23:42 Temperature Pulse Rate 103 H 108 H 109 H Respiratory Rate 19 19 Blood Pressure Pulse Oximetry 98 09/17/18 00:00 09/17/18 02:00 09/17/18 04:00 Temperature 99.4 F Pulse Rate 107 H 108 H 104 H Respiratory Rate 20 20 Blood Pressure Pulse Oximetry 99 98 09/17/18 04:23 09/17/18 06:00 09/17/18 07:49 Temperature Pulse Rate 104 H 106 H 105 H Respiratory Rate 20 22 Blood Pressure Pulse Oximetry 09/17/18 07:50 Temperature Pulse Rate Respiratory Rate Blood Pressure Pulse Oximetry 97 Intake & Output 09/16/18 09/17/18 09/17/18 18:59 06:59 18:59 Intake Total 500 / 500 1100 / 1100 100 / 100 Output Total 4000 / 4000 100 / 100 Balance -3500 / -3500 1000 / 1000 100 / 100 Weight 145 kg Intake: IV 500 / 500 1100 / 1100 100 / 100 Heparin/D5W 25,000 U/250 mL 25, 250 / 250 250 / 250 000 unit In 250 ml @ Per Protocol IV.CONT TITRATE PRN Rx #:[id number] Primacor Inj 20 MG In NS Inj 80 100 / 100 ML @ Per Protocol IV.CONT .Q0M [facility] Rx#:[id number] Diprivan 1000 mg/100 ml Inj 1, 200 / 200 000 mg In 100 ml @ 5 MCG/KG/MIN 6.804 mls/hr IV.CONT TITRATE PRN Rx#:[id number] Zyvox 600 mg Premix 300 ML @ 600 / 600 300 mls/hr IV.SIG Q12H [facility] Rx#: [id number] Zosyn 2.25 GM Premix 50 ML @ 50 / 50 150 / 150 100 mls/hr IV.SIG Q6H [facility] Rx#: [id number] Output: Hemodialysis Amount 4000 / 4000 Urine Amount (Catheter) 100 / 100 Indwelling Urethral Catheter 100 / 100 Other: Date of Last Bowel Movement 09/15/18 09/15/18 # Bowel Movements 0 Result Diagrams: 09/17/18 06:09 09/17/18 06:09 Objective Remarks: GENERAL: Patient is 47 yo morbidly obese -[place] female, appears ill but maintaining oxygenation with Ventimask SKIN: Warm and dry. HEAD: Normocephalic. EYES: No scleral icterus. No injection or drainage. NECK: Supple, trachea midline. Unable to appreciate JVD due to body habitus CARDIOVASCULAR: Regular rate and rhythm without murmurs, gallops, or rubs. On IV heparin. On milrinone at 0.15 mcg/kg/min CI 2.2 RESPIRATORY: Breath sounds equal bilaterally. Air entry diminished at the bases. Bilateral coarse rhonchi and few wheezes GASTROINTESTINAL: Abdomen soft, obese ,non-tender, nondistended. MUSCULOSKELETAL: No cyanosis, + edema. Neuro: Alert awake, wakes up easily understands conversation. Moves extremities purposefully. Follows commands x4 Assessment and Plan - Assessment and Plan Plan: ASSESSMENT: Acute hypoxemic respiratory failure Acute systolic heart failure Pulmonary edema Probable pneumonia Sepsis Acute kidney failure, anuric Acute pulmonary embolism Obesity hypoventilation syndrome Mild elevated trop Leukocytosis Elevated AST Morbid obesity PLAN: Neuro: Off all continuous sedation. CT brain: No acute intracranial findings GCS 11 T off sedation-communicates by writing Pulm: Extubated yesterday 09/16/2018, maintaining airway, maintaining oxygen saturation about 95% on Ventimask Bronchodilators, CTA chest: Very limited examination due to patient body habitus. Elongated filling defect in the right pulmonary artery suspicious for PE. Moderate-sized area consolidation of right lower lobe. Bilateral dependent lower lobe atelectasis. CXR -pulm edema Continue Heparin drip. Monitor PTT per protocol. Broad-spectrum antibiotics with Zosyn, Zyvox CV: Started on milrinone 09/13/2018 to maintain cardiac index more than 2.2. Now at 0.15 mcg/kg/min Echo 09/09: Technically difficult study making assessment of left ventricular function and wall motion. Suboptimal. Grossly, left ventricular function appears severely reduced. probable global hypokinesis. Cards Dr. Law following Continue fluid removal with hemodialysis started 09/16/2018, and IV Bumex GTT. achieving negative balance now. need HD today : Monitor renal function, I/O's, avoid nephrotoxins. Fluid removal with hemodialysis started 09/12/2018 Getting HD today due to worsening pulmonary edema. Renal Dr. Majano abdomen: No masses or hydronephrosis, enlarged liver likely due to fatty infiltration. GI: On Pepcid for GI prophylaxis, clear liquid diet. Advance only after respiratory status stabilizes ID: Continue abx (continue Zosyn, discontinued vancomycin 09/11/2018) monitor for signs of infections ( fever, WBC) Started Zyvox due to slight increase in WBC count, 13.5 today continue to trend Strep pneumonia and Legionella urinary Ag negative 09/09 Blood, sputum and urine cx: All negative to date Heme: Monitor CBC, coags- on Heparin drip. Endo: SSI with accuchecks for glycemic control DVT GI prophylaxis -SCDs -Heparin drip -Pepcid My billing statement This patient remains critically ill with one or more organ systems which are or may become a threat to life. I have spent in excess of 35 minutes discontinuously in the care and management of this patient. This time is exclusive of procedures, and includes, but is not limited to, evaluation of the patient, review of the medical record, discussions with family, consultants, nursing staff, or respiratory therapy, and documentation in the medical record. Patient is severely ill critical with multiorgan failure. She has multiple organs involved with respiratory failure heart failure renal failure and sepsis. Prognosis is guarded at this time. Patient continues to be critically ill, her respiratory status was improved and she was able to be extubated yesterday. However renal failure and anuria persist along with systolic heart failure and pulmonary edema. She is at risk of acute decompensation and requiring mechanical ventilation. Continue low- dose milrinone Code Status: Full
[2018-09-17 09:28] LABS: Albumin 3.3 g/dL (3.4-5.0); Anion Gap 16 meq/L (5-15); Aspartate Aminotransferase 22 U/L (15-37); Blood Urea Nitrogen 37 mg/dL (7-18); Calcium 10.1 mg/dL (8.5-10.1); Carbon Dioxide 25.5 meq/L (21.0-32.0); Chloride 92 meq/L (98-107); Glomerular Filtration Rate 7 mL/min (>89); Glucose,Random 156 mg/dL (74-106); Potassium 3.5 meq/L (3.5-5.1); Sodium 133 meq/L (136-145)
[2018-09-17 09:29] LABS: Alanine Aminotransferase 27 U/L (10-53)
[2018-09-17 09:31] LABS: Alkaline Phosphatase 92 U/L (45-117); Total Protein 9.5 g/dL (6.4-8.2)
--- NOTE | 2018-09-17 10:06 | P.PNCA ---
Subjective Interval history: Patient is lethargic and on a VM post extubation. Medications and Allergies Allergies Allergy/AdvReac Type Severity Reaction Status Date / Time No Allergy Information Allergy Unverified 09/08/18 22:46 Available Home Medications Medication Instructions Recorded Confirmed Type allopurinol 100 mg PO DAILY 09/11/18 09/11/18 History cyclobenzaprine 5 mg PO TID 09/11/18 09/11/18 History furosemide 40 mg PO DAILY 09/11/18 09/11/18 History hydralazine 50 mg PO Q8HR 09/11/18 09/11/18 History insulin detemir U-100 [Levemir 24 unit SUBCUT Q12HR 09/11/18 09/11/18 History U-100 Insulin] insulin regular human [Novolin R 1 sliding scale dose SUBCUT UD 09/11/18 History Regular U-100 Insuln] levothyroxine 50 mcg PO DAILY 09/11/18 09/11/18 History meloxicam DAILY 09/11/18 History potassium chloride 20 meq PO DAILY 09/11/18 09/11/18 History pravastatin 40 mg PO HS 09/11/18 09/11/18 History pregabalin [Lyrica] 50 mg PO BID 09/11/18 09/11/18 History sertraline 50 mg PO HS 09/11/18 09/11/18 History tramadol 50 mg PO Q6H PRN 09/11/18 09/11/18 History Active Medications: Active Medications Acetaminophen (Tylenol) 650 mg PO Q6H PRN PRN Reason: PAIN 1-10 AND/OR FEVER >101F Last Admin: 09/16/18 15:46 Dose: 650 mg Acetaminophen (Tylenol) 650 mg PO UNSCH PRN PRN Reason: SEE LABEL COMMENTS Al Hydroxide/Mg Hydroxide (Milk Of Maria Eugenia Liq) 30 ml PO Q12H PRN PRN Reason: Mild Constipation Albuterol (Duoneb Neb (Prn)) 1 ampul NEB Q2HR NEB PRN PRN Reason: WHEEZING Last Admin: 09/14/18 10:45 Dose: 1 ampul Albuterol (Duoneb Neb (Marshall)) 1 ampul NEB Q4HR NEB [facility] Last Admin: 09/17/18 07:49 Dose: 1 ampul Bisacodyl (Dulcolax Supp) 10 mg RECTAL DAILY PRN PRN Reason: SEVERE CONSITIPATION Chlorhexidine Gluconate (Peridex 0.12% Oral Kit) 15 ml OROPHARYNG BID@0800, 2000 [facility] Last Admin: 09/17/18 08:06 Dose: Not Given Clonidine HCl (Catapres) 0.1 mg PO UNSCH PRN PRN Reason: SEE LABEL COMMENTS Cyclobenzaprine HCl (Flexeril) 10 mg PO Q8H PRN PRN Reason: SPASM Last Admin: 09/14/18 18:14 Dose: 10 mg Dextrose (D50w Vial) 50 ml IV.PUSH UNSCH PRN PRN Reason: PER HYPOGLYCEMIA PROTOCOL Diphenhydramine HCl (Benadryl) 25 mg PO UNSCH PRN PRN Reason: SEE LABEL COMMENTS Famotidine (Pepcid Pf Inj) 10 mg IV.PUSH Q12HR [facility] Last Admin: 09/17/18 08:06 Dose: 10 mg Gelatin (Gelfoam 12 Mm/7 Mm Topical) 1 foam TOPICAL PRN PRN PRN Reason: help stop bleeding from site Gentamicin Sulfate (Gentamicin Inj) 20 mg OTHER WITH DIALYSIS PRN PRN Reason: Dwell Gentamycin Lock Last Admin: 09/13/18 15:07 Dose: 20 mg Glucagon (Glucagon Inj) 1 mg OTHER PRN PRN PRN Reason: for Hypoglycemia Protocol Heparin Sodium (Porcine) (Heparin Inj) 8,000 units OTHER WITH DIALYSIS PRN PRN Reason: for machine prime Last Admin: 09/16/18 22:55 Dose: 2,500 units Heparin Sodium (Porcine) (Heparin Inj) 1,000 units OTHER WITH DIALYSIS PRN PRN Reason: Dwell Heparin to Fill Catheter Diltiazem HCl 125 mg/ Sodium (Chloride) 125 mls @ 5 mls/hr IV.CONT TITRATE PRN ; Protocol PRN Reason: Per Protocol Last Titration: 09/11/18 19:00 Dose: Infused Heparin Sodium/Dextrose (Heparin/D5w 25,000 U/250 Ml) 25,000 unit in 250 mls @ 0 mls/hr IV.CONT TITRATE PRN; Protocol PRN Reason: Per Protocol Last Admin: 09/17/18 06:34 Dose: 1,600 units/hr, 16 mls/hr Piperacillin/Tazobactam/Dextrose (Zosyn 2.25 Gm Premix) 50 mls @ 100 mls/hr IV.SIG Q6H [facility] Last Infusion: 09/17/18 04:05 Dose: Infused Albumin Human (Flexbumin 25% Inj) 100 mls @ 60 mls/hr IV.SIG WITH DIALYSIS PRN PRN Reason: hypotension / volume replace Last Infusion: 09/13/18 16:50 Dose: Infused Sodium Chloride (Ns Inj) 1,000 mls @ 0 mls/hr OTHER .Q0M PRN PRN Reason: for prime and rinse back Sodium Chloride (Ns Inj) 1,000 mls @ 200 mls/hr OTHER .Q5H PRN PRN Reason: for dialyzer flush PRN Sodium Chloride (Ns Inj) 1,000 mls @ 0 mls/hr IV.CONT .Q0M PRN PRN Reason: hypotension / volume replace Milrinone Lactate 20 mg/ (Sodium Chloride) 100 mls @ 0 mls/hr IV.CONT .Q0M [facility] ; Protocol Last Admin: 09/16/18 20:25 Dose: 0.15 mcg/kg/min, 6.94 mls/hr Linezolid (Zyvox 600 Mg Premix) 300 mls @ 300 mls/hr IV.SIG Q12H [facility] Last Admin: 09/17/18 08:06 Dose: 300 mls/hr Insulin Human Regular (Novolin R Correctional Sugar Inj) 0 units SQ Q4HR [facility]; Protocol Last Admin: 09/17/18 09:35 Dose: Not Given Lactulose (Lactulose Liq) 30 ml PO DAILY PRN PRN Reason: SEVERE CONSITIPATION Lactulose (Lactulose Liq) 30 ml PO BID [facility] Last Admin: 09/16/18 20:22 Dose: Not Given Mannitol (Mannitol Inj) 12.5 gm IV.PUSH UNSCH PRN PRN Reason: hypotension / volume replace Miscellaneous Medication () 1 each OROPHARYNG 0000,0400,1200,1600 [facility] Last Admin: 09/17/18 03:36 Dose: Not Given Morphine Sulfate (Morphine Inj) 2 mg IV.PUSH Q2H PRN PRN Reason: PAIN SCALE 6 TO 10 Last Admin: 09/15/18 18:49 Dose: 2 mg Nitroglycerin (Nitrostat Sl) 0.4 mg SL Q5M PRN PRN Reason: CHEST PAIN Ondansetron HCl (Zofran Inj) 4 mg IV.PUSH Q6H PRN PRN Reason: NAUSEA OR VOMITING Ondansetron HCl (Zofran Inj) 4 mg IV.PUSH UNSCH PRN PRN Reason: NAUSEA OR VOMITING Senna/Docusate Sodium (Nereida-Colace) 1 tab PO BID [facility] Last Admin: 09/17/18 08:06 Dose: Not Given Sennosides (Senokot) 17.2 mg PO Q12H PRN PRN Reason: Moderate Constipation Sodium Chloride (Ns Flush) 2 ml IV.FLUSH BID [facility] Last Admin: 09/17/18 08:06 Dose: 2 ml Sodium Chloride (Ns Flush) 2 ml IV.FLUSH PRN PRN PRN Reason: FLUSH AFTER USING IV ACCESS Sodium Chloride (Ns Flush) 5 ml IV.FLUSH PRN PRN PRN Reason: flush each lumen during HD Physical Exam Vital signs: Vital Signs 09/16/18 11:21 09/16/18 11:22 09/16/18 12:00 Temperature 98.4 F Pulse Rate 98 H 100 H Respiratory Rate 16 18 18 Blood Pressure 95/64 L Pulse Oximetry 100 98 09/16/18 14:00 09/16/18 15:39 09/16/18 16:00 Temperature 97.9 F Pulse Rate 98 H 96 H 97 H Respiratory Rate 18 20 Blood Pressure Pulse Oximetry 98 09/16/18 18:00 09/16/18 20:00 09/16/18 21:08 Temperature 98.3 F Pulse Rate 100 H 103 H 103 H Respiratory Rate 22 19 Blood Pressure Pulse Oximetry 100 98 09/16/18 22:00 09/16/18 23:42 09/17/18 00:00 Temperature Pulse Rate 108 H 109 H 107 H Respiratory Rate 19 20 Blood Pressure Pulse Oximetry 99 09/17/18 02:00 09/17/18 04:00 09/17/18 04:23 Temperature 99.4 F Pulse Rate 108 H 104 H 104 H Respiratory Rate 20 20 Blood Pressure Pulse Oximetry 98 09/17/18 06:00 09/17/18 07:49 09/17/18 07:50 Temperature Pulse Rate 106 H 105 H Respiratory Rate 22 Blood Pressure Pulse Oximetry 97 Intake & Output 09/16/18 09/17/18 09/17/18 18:59 06:59 18:59 Intake Total 500 / 500 1100 / 1100 100 / 100 Output Total 4000 / 4000 100 / 100 Balance -3500 / -3500 1000 / 1000 100 / 100 Weight 145 kg Intake: IV 500 / 500 1100 / 1100 100 / 100 Heparin/D5W 25,000 U/250 mL 25, 250 / 250 250 / 250 000 unit In 250 ml @ Per Protocol IV.CONT TITRATE PRN Rx #:[id number] Primacor Inj 20 MG In NS Inj 80 100 / 100 ML @ Per Protocol IV.CONT .Q0M [facility] Rx#:[id number] Diprivan 1000 mg/100 ml Inj 1, 200 / 200 000 mg In 100 ml @ 5 MCG/KG/MIN 6.804 mls/hr IV.CONT TITRATE PRN Rx#:[id number] Zyvox 600 mg Premix 300 ML @ 600 / 600 300 mls/hr IV.SIG Q12H [facility] Rx#: [id number] Zosyn 2.25 GM Premix 50 ML @ 50 / 50 150 / 150 100 mls/hr IV.SIG Q6H [facility] Rx#: [id number] Output: Hemodialysis Amount 4000 / 4000 Urine Amount (Catheter) 100 / 100 Indwelling Urethral Catheter 100 / 100 Other: Date of Last Bowel Movement 09/15/18 09/15/18 # Bowel Movements 0 - Constitutional no acute distress - Routine HEENT Exam Head: Present: normocephalic Eye: Present: PERRL ENT: Present: mucous membranes moist - Routine Neck Exam Present: supple - Routine Respiratory Exam Present: decreased breath sounds, rhonchi, crackles - Routine Cardiovascular Exam Present: S1, S2. Absent: murmur, gallop, rubs - Routine Abdominal Exam Present: normoactive bowel sounds - Routine Extremities Exam Present: edema, pulses intact, normal capillary refill. Absent: cyanosis, clubbing - Routine Skin Exam Present: intact - Routine Neurological Exam lethargic but does respond and follow commands. - Detailed Neurological Exam: Coma Scale Eye Opening: To sound Verbal Response: Oriented Motor Response: Obey commands Dawson Coma Scale Total: 14 - Routine Psychiatric Exam Present: unable to assess - Urinary Catheter Management Indwelling Urethral Catheter Cath placed during this visit: yes Reason for continuing: Hourly intake/output Insertion date: 09/08/18 Insertion time: 22:52 Results 09/17/18 09:00 09/17/18 08:35 Cardiac Enzymes 09/16/18 09/17/18 09/17/18 Range/Units 04:20 06:09 08:35 AST 27 22 22 (15-37) U/L Coagulation 09/16/18 09/16/18 09/16/18 Range/Units 04:20 11:00 21:45 APTT 37.3 H 41.3 H 35.7 H (23.4-31.7) sec 09/17/18 Range/Units 06:09 APTT 39.9 H (23.4-31.7) sec CBC 09/16/18 09/17/18 Range/Units 04:20 06:09 WBC 11.1 H 13.5 H (4.0-11.0) th/mm3 RBC 3.99 L 4.35 (4.00-5.30) mil/mm3 Hgb 10.3 L 11.3 L (11.6-15.3) gm/dL Hct 31.6 L 35.8 (35.0-46.0) % Plt Count 354 417 (150-450) th/mm3 Comprehensive Metabolic Panel 09/16/18 09/17/18 09/17/18 Range/Units 04:20 06:09 08:35 Sodium 137 137 133 L (136-145) meq/L Potassium 3.1 L 3.6 3.5 (3.5-5.1) meq/L Chloride 97 L 94 L 92 L (98-107) meq/L Carbon Dioxide 26.8 27.6 25.5 (21.0-32.0) meq/L BUN 37 H 37 H 37 H (7-18) mg/dL Creatinine 5.63 H 6.06 H 6.32 H (0.50-1.00) mg/dL Calcium 9.7 9.9 10.1 (8.5-10.1) mg/dL AST 27 22 22 (15-37) U/L ALT 32 26 27 (10-53) U/L Alkaline Phosphatase 86 93 92 (45-117) U/L Total Protein 8.5 H 9.8 H D 9.5 H (6.4-8.2) g/dL Albumin 3.1 L 3.4 3.3 L (3.4-5.0) g/dL Intake and Output 09/16/18 09/17/18 09/17/18 22:59 06:59 14:59 Intake Total 750 / 750 350 / 350 100 / 100 Output Total 100 / 100 Balance 750 / 750 250 / 250 100 / 100 Intake: IV 750 / 750 350 / 350 100 / 100 Heparin/D5W 25,000 U/250 mL 25, 250 / 250 000 unit In 250 ml @ Per Protocol IV.CONT TITRATE PRN Rx #:[id number] Primacor Inj 20 MG In NS Inj 80 100 / 100 ML @ Per Protocol IV.CONT .Q0M [facility] Rx#:[id number] Zyvox 600 mg Premix 300 ML @ 600 / 600 300 mls/hr IV.SIG Q12H [facility] Rx#: [id number] Zosyn 2.25 GM Premix 50 ML @ 50 / 50 100 / 100 100 mls/hr IV.SIG Q6H [facility] Rx#: [id number] Output: Urine Amount (Catheter) 100 / 100 Indwelling Urethral Catheter 100 / 100 Other: Date of Last Bowel Movement 09/15/18 09/15/18 # Bowel Movements 0 Weight 145 kg - Imaging and Cardiology Imaging: Impressions Chest X-Ray 09/16/18 06:00 CONCLUSION: 1. Persistent right upper lobe consolidation and slightly improving left upper lobe consolidation. 2. Stable cardiomegaly. Chest X-Ray 09/17/18 06:00 CONCLUSION: Increasing prominence and indistinctness of the central bronchopulmonary markings. Persistent left lower lobe consolidation. Assessment and Plan - Assessment (1) Acute kidney failure Code(s): N17.9 - Acute kidney failure, unspecified Status: Acute (2) Respiratory failure Code(s): J96.90 - Respiratory failure, unspecified, unspecified whether with hypoxia or hypercapnia Status: Acute (3) Obesity Code(s): E66.9 - Obesity, unspecified Status: Acute - Plan Patient remains on Milrinone for CHF treatment, wean as patient tolerates. Patient was extubated yesterday and is currently on a VM. Patient is currently receiving HD and tolerating well, nephrology evaluation in progress. There have been no new cardiac issues at this time, continue current cardiac treatment plan. Patients prognosis remains very poor, palliative care evaluation in progress. We will continue to monitor the patient during her hospitalization. The patient was seen and evaluated by Dr. Law who participated in care, management and decision making. - Attending Attestation Patient seen and examined. I reviewed and agree with the evaluation and plan as presented. Continue current program. Wean milrinone as tolerated. Increase activity, PT.
--- NOTE | 2018-09-17 10:08 | P.PNNP ---
Subjective Interval history: Patient was seen during dialysis. On 4K, 300 ml/min, goal of 4 L. Patient dialyzed yesterday, 4 L removed. Renal function declined and urine output decreased. HD mainly for fluid removal. Patient extubated yesterday. Patient on Ventimask. Chest x-ray today showed consolidation. <GabeJenniferkwaku - Last Filed: 09/17/18 10:08> Physical Exam Vital signs: Vital Signs 09/16/18 11:21 09/16/18 11:22 09/16/18 12:00 Temperature 98.4 F Pulse Rate 98 H 100 H Respiratory Rate 16 18 18 Blood Pressure 95/64 L Pulse Oximetry 100 98 09/16/18 14:00 09/16/18 15:39 09/16/18 16:00 Temperature 97.9 F Pulse Rate 98 H 96 H 97 H Respiratory Rate 18 20 Blood Pressure Pulse Oximetry 98 09/16/18 18:00 09/16/18 20:00 09/16/18 21:08 Temperature 98.3 F Pulse Rate 100 H 103 H 103 H Respiratory Rate 22 19 Blood Pressure Pulse Oximetry 100 98 09/16/18 22:00 09/16/18 23:42 09/17/18 00:00 Temperature Pulse Rate 108 H 109 H 107 H Respiratory Rate 19 20 Blood Pressure Pulse Oximetry 99 09/17/18 02:00 09/17/18 04:00 09/17/18 04:23 Temperature 99.4 F Pulse Rate 108 H 104 H 104 H Respiratory Rate 20 20 Blood Pressure Pulse Oximetry 98 09/17/18 06:00 09/17/18 07:49 09/17/18 07:50 Temperature Pulse Rate 106 H 105 H Respiratory Rate 22 Blood Pressure Pulse Oximetry 97 Intake & Output 09/16/18 09/17/18 09/17/18 18:59 06:59 18:59 Intake Total 500 / 500 1100 / 1100 100 / 100 Output Total 4000 / 4000 100 / 100 Balance -3500 / -3500 1000 / 1000 100 / 100 Weight 145 kg Intake: IV 500 / 500 1100 / 1100 100 / 100 Heparin/D5W 25,000 U/250 mL 25, 250 / 250 250 / 250 000 unit In 250 ml @ Per Protocol IV.CONT TITRATE PRN Rx #:[id number] Primacor Inj 20 MG In NS Inj 80 100 / 100 ML @ Per Protocol IV.CONT .Q0M [facility] Rx#:[id number] Diprivan 1000 mg/100 ml Inj 1, 200 / 200 000 mg In 100 ml @ 5 MCG/KG/MIN 6.804 mls/hr IV.CONT TITRATE PRN Rx#:[id number] Zyvox 600 mg Premix 300 ML @ 600 / 600 300 mls/hr IV.SIG Q12H [facility] Rx#: [id number] Zosyn 2.25 GM Premix 50 ML @ 50 / 50 150 / 150 100 mls/hr IV.SIG Q6H [facility] Rx#: [id number] Output: Hemodialysis Amount 4000 / 4000 Urine Amount (Catheter) 100 / 100 Indwelling Urethral Catheter 100 / 100 Other: Date of Last Bowel Movement 09/15/18 09/15/18 # Bowel Movements 0 Narrative: GENERAL: No distress, morbidly obese. SKIN: Warm and dry. HEAD: Normocephalic. NECK: Supple, trachea midline. CARDIOVASCULAR: Regular rate and rhythm. RESPIRATORY: Air entry diminished at the bases. GASTROINTESTINAL: Abdomen soft, obese ,non-tender. MUSCULOSKELETAL: + edema. - Urinary Catheter Management Indwelling Urethral Catheter Cath placed during this visit: yes Reason for continuing: Hourly intake/output Insertion date: 09/08/18 Insertion time: 22:52 <Venkatesh Bernal - Last Filed: 09/17/18 10:08> Vital signs: Vital Signs 09/17/18 09:00 09/17/18 09:01 09/17/18 10:00 Pulse Rate 104 H 103 H 106 H Respiratory Rate Blood Pressure 112/69 92/70 L Pulse Oximetry 93 L 97 94 L 09/17/18 11:00 09/17/18 11:01 09/17/18 11:02 Pulse Rate 108 H 109 H 108 H Respiratory Rate 21 Blood Pressure 110/52 L Pulse Oximetry 95 95 09/17/18 12:00 09/17/18 12:06 09/17/18 13:00 Pulse Rate 112 H 111 H 112 H Respiratory Rate Blood Pressure 73/48 L 70/52 L Pulse Oximetry 92 L 93 L 100 09/17/18 14:00 09/17/18 14:01 09/17/18 14:34 Pulse Rate 113 H 112 H 115 H Respiratory Rate Blood Pressure 80/53 L 77/61 L Pulse Oximetry 91 L 93 L 93 L 09/17/18 15:00 09/17/18 15:01 09/17/18 16:00 Pulse Rate 114 H 115 H 114 H Respiratory Rate Blood Pressure 89/57 L 90/53 L Pulse Oximetry 94 L 93 L 95 09/17/18 16:10 09/17/18 16:26 09/17/18 17:00 Pulse Rate 113 H 115 H Respiratory Rate 20 Blood Pressure Pulse Oximetry 98 92 L 09/17/18 17:49 09/17/18 18:00 09/17/18 19:00 Pulse Rate 113 H 111 H 109 H Respiratory Rate Blood Pressure 100/68 101/68 100/64 Pulse Oximetry 96 94 L 97 09/17/18 20:00 09/17/18 20:04 09/17/18 22:00 Pulse Rate 109 H 110 H 111 H Respiratory Rate 22 16 Blood Pressure 103/54 L Pulse Oximetry 94 L 09/17/18 23:44 09/18/18 00:00 09/18/18 01:05 Pulse Rate 107 H 110 H Respiratory Rate 20 20 20 Blood Pressure 109/56 L Pulse Oximetry 95 09/18/18 02:00 09/18/18 03:45 09/18/18 04:00 Pulse Rate 112 H 105 H 105 H Respiratory Rate 20 20 Blood Pressure 102/51 L Pulse Oximetry 94 L 09/18/18 06:00 09/18/18 07:00 09/18/18 08:00 Pulse Rate 105 H 105 H Respiratory Rate 18 Blood Pressure Pulse Oximetry 94 L Intake & Output 09/17/18 09/18/18 09/18/18 18:59 06:59 18:59 Intake Total 250 / 250 1300 / 1300 Output Total 4125 / 4125 Balance -3875 / -3875 1300 / 1300 Weight 140.8 kg Intake: IV 250 / 250 1300 / 1300 Heparin/D5W 25,000 U/250 mL 25, 250 / 250 000 unit In 250 ml @ Per Protocol IV.CONT TITRATE PRN Rx #:[id number] Primacor Inj 20 MG In NS Inj 80 100 / 100 50 / 50 ML @ Per Protocol IV.CONT .Q0M [facility] Rx#:[id number] Zyvox 600 mg Premix 300 ML @ 600 / 600 300 mls/hr IV.SIG Q12H [facility] Rx#: [id number] Zosyn 2.25 GM Premix 50 ML @ 50 / 50 150 / 150 100 mls/hr IV.SIG Q6H [facility] Rx#: [id number] fentaNYL 10 mcg/mL Premix Drip 250 / 250 2,500 mcg In 250 ml @ 50 MCG/HR 5 mls/hr IV.SIG TITRATE PRN Rx #:[id number] Output: Hemodialysis Amount 4000 / 4000 Urine Amount (Catheter) 125 / 125 Indwelling Urethral Catheter 125 / 125 Other: # Voids 2 Date of Last Bowel Movement 09/15/18 09/15/18 # Incontinent Bowel Movements 4 0 - Urinary Catheter Management Indwelling Urethral Catheter Cath placed during this visit: no <Chris Majano - Last Filed: 09/18/18 08:48> Assessment and Plan - Assessment (1) Acute kidney failure Code(s): N17.9 - Acute kidney failure, unspecified Status: Acute Plan: Baseline renal function is not known. May have renal hypoperfusion. Could have developed contrast nephropathy after CTA. Clinically she appears to fluid overloaded. Patient was seen during dialysis. On 4K, 300 ml/min, goal of 4 L. Patient dialyzed yesterday, 4 L removed. Renal function declined and urine output decreased. HD mainly for fluid removal. Patient had right IJ hemodialysis catheter placement. Monitor for renal recovery. (2) Respiratory failure Code(s): J96.90 - Respiratory failure, unspecified, unspecified whether with hypoxia or hypercapnia Status: Acute Plan: s/p extubation. Patient on Ventimask. (3) Obesity Code(s): E66.9 - Obesity, unspecified Status: Acute Plan: patient has obesity-hypoventilation syndrome. (4) Pulmonary embolism Code(s): I26.99 - Other pulmonary embolism without acute cor pulmonale Status : Acute Plan: On Heparin. <Venkatesh Bernal - Last Filed: 09/17/18 10:08> - Assessment (1) Acute kidney failure Code(s): N17.9 - Acute kidney failure, unspecified Status: Acute (2) Respiratory failure Code(s): J96.90 - Respiratory failure, unspecified, unspecified whether with hypoxia or hypercapnia Status: Acute (3) Obesity Code(s): E66.9 - Obesity, unspecified Status: Acute (4) Pulmonary embolism Code(s): I26.99 - Other pulmonary embolism without acute cor pulmonale Status : Acute - Attending Attestation patient was seen and examined. Dialysis for fluid removal. Highly catabolic. Monitor fluid and electrolytes, currently oliguric. <Chris Majano - Last Filed: 09/18/18 08:48>
[2018-09-17] MEDS: Milrinone Inj 20 MG in Sodium Chlor 0.9% Inj 80 ML IV.CONT SCH (10:50)
[2018-09-17 11:29] LABS: Hematocrit 33.6 % (35.0-46.0); Hemoglobin 10.7 gm/dL (11.6-15.3); Mean Corpuscular HGB Conc 31.8 % (32.0-36.0); Mean Corpuscular Hemoglobin 26.1 pg (27.0-34.0); Mean Corpuscular Volume 82.3 fL (80.0-100.0); Mean Platelet Volume 7.8 fL (7.0-11.0); Platelet Count 388 th/mm3 (150-450); Red Blood Count 4.09 mil/mm3 (4.00-5.30); Red Cell Distribution Width 17.1 % (11.6-17.2); White Blood Count 12.4 th/mm3 (4.0-11.0)
[2018-09-17] MEDS: Heparin 10,000 UNITS/10 ML Vial (for IV use) OTHER PRN (11:55)
[2018-09-17] MEDS: Acetaminophen 325 MG Tablet PO PRN (12:35)
--- NOTE | 2018-09-17 15:40 | ECHRPT ---
Indication: HEART FAILURE CONCLUSIONS Technically exceedingly difficult study making assessment of left ventricular function very suboptim al, Grossly, left ventricular function may be low normal or mildly reduced though this is difficult to c onfirm. Inadequate study for valvular assessment. BP: / HR: Rhythm: Sinus MEASUREMENTS (Male / Female) Normal Values Technical Quality:Technically difficult study, Poo r 2D ECHO RV Internal Dim ED PLAX 3.9 cm LV Ejection Fraction MOD 4C 40.3 % LV Ejection Fraction 4C AL 43.7 % FINDINGS LEFT VENTRICLE Technically exceedingly difficult study making assessment of left ventricular function very suboptim al, Grossly, left ventricular function may be low normal or mildly reduced though this is difficult to c onfirm. RIGHT VENTRICLE The right ventricle was not well visualized. LEFT ATRIUM The left atrium was not well visualized. RIGHT ATRIUM The right atrium is not well visualized. ATRIAL SEPTUM The interatrial septum not well visualized. AORTA The aortic root and proximal ascending aorta are not well visualized. MITRAL VALVE Trace mitral valve regurgitation. AORTIC VALVE The aortic valve is not well visualized. TRICUSPID VALVE The tricuspid valve is not well visualized. PULMONARY VALVE The pulmonary valve is not well visualized. VESSELS The inferior vena cava was not well visualized. Geoff Soto MD (Electronically Signed) Final Date:17 September 2018 15:38
[2018-09-18] MEDS: Morphine Sulfate Inj 2 MG/ML Vial IV.PUSH PRN (00:29)
[2018-09-18] MEDS: Insulin NovoLIN Regular Correctional Sugar Inj SQ SCH ×6 (01:05→21:14)
[2018-09-18] MEDS: Oral Hygiene Kit OROPHARYNG SCH ×4 (01:05→16:34)
[2018-09-18] MEDS: Piperacil/Tazo 2.25 GM Premix 50 ML IV.SIG SCH ×4 (04:23→21:16)
[2018-09-18] MEDS: Milrinone Inj 20 MG in Sodium Chlor 0.9% Inj 80 ML IV.CONT SCH (04:25)
[2018-09-18 05:38] LABS: Baso # (Auto) 0.1 th/mm3 (0.0-0.2); Baso % (Auto) 0.6 % (0.0-2.0); Eos % (Auto) 6.2 % (0.0-4.0); Hemoglobin 12.2 gm/dL (11.6-15.3); Lymph # (Auto) 3.1 th/mm3 (1.0-4.8); Lymph % (Auto) 18.9 % (9.0-44.0); Mean Corpuscular HGB Conc 32.1 % (32.0-36.0); Mean Corpuscular Hemoglobin 26.1 pg (27.0-34.0); Mean Corpuscular Volume 81.3 fL (80.0-100.0); Mean Platelet Volume 7.8 fL (7.0-11.0); Mono # (Auto) 2.2 th/mm3 (0.0-0.9); Mono % (Auto) 13.6 % (0.0-8.0); Neut # (Auto) 9.9 th/mm3 (1.8-7.7); Neut % (Auto) 60.7 % (16.0-70.0); Platelet Count 470 th/mm3 (150-450); Red Blood Count 4.68 mil/mm3 (4.00-5.30); Red Cell Distribution Width 17.5 % (11.6-17.2); White Blood Count 16.3 th/mm3 (4.0-11.0)
[2018-09-18 06:09] LABS: Alanine Aminotransferase 29 U/L (10-53); Albumin 3.9 g/dL (3.4-5.0); Alkaline Phosphatase 98 U/L (45-117); Anion Gap 17 meq/L (5-15); Aspartate Aminotransferase 23 U/L (15-37); Blood Urea Nitrogen 39 mg/dL (7-18); Calcium 10.7 mg/dL (8.5-10.1); Carbon Dioxide 24.5 meq/L (21.0-32.0); Chloride 90 meq/L (98-107); Glomerular Filtration Rate 7 mL/min (>89); Glucose,Random 147 mg/dL (74-106); Potassium 3.5 meq/L (3.5-5.1); Sodium 131 meq/L (136-145); Total Protein 10.6 g/dL (6.4-8.2)
[2018-09-18 06:57] LABS: Platelet Morphology Normal (Normal)
[2018-09-18] MEDS: Chlorhexidine 0.12% Oral Kit 15 ML UDC OROPHARYNG SCH ×2 (08:15→21:14)
[2018-09-18] MEDS: Senna/Docusate Sodium 8.6/50 MG Tablet PO SCH ×2 (08:16→21:15)
[2018-09-18] MEDS: Famotidine PF Inj 20 MG/2 ML Vial IV.PUSH SCH ×2 (08:24→21:15)
--- NOTE | 2018-09-18 08:34 | P.PNCC ---
Subjective Subjective Remarks/Hospital Course: Middle-aged morbidly obese female was brought in emergently department by EMS due to respiratory failure and unresponsiveness. She was brought in being bagged by BV. Patient was a GCS of 3 upon arrival and hence in no condition to give any history. As per EMS the call went out as shortness of breath while patient got into the car. When they arrived she was in severe respiratory distress. They put her on BiPAP but shortly patient started to lose consciousness with agonal respirations. Family was at the scene and informed EMS that she has history of congestive heart failure. Patient was tachycardic upon arrival with heart rate in 170s. It appeared to be irregularly irregular on the monitor. She was immediately intubated by ED attending with improvement in her heart rate. There is no additional history available. Per report, the family admits the patient has been taking a lot of medications but they are unaware of the names or reasons. 09/10 Patient remains sedated with Diprivan and intubated. Renal function is worsening with Cr: 4.02 from 2.60. Afebrile. On Heparin drip. 09/11: Patient remains intubated sedated critically ill. Urine output has improved with Bumex infusion however creatinine has worsened from 4-5.5 today. D/W with nephrology-no acute indication for dialysis however considering creatinine worsening, will reduce Bumex infusion 0.5 mg/h. Chest x-ray is pending at this time 09/12: Remains intubated sedated with propofol however wakes up and follows commands. Creatinine worsening 6.5 today. Even though her urine output has improved on Bumex infusion 3 L in 24 hours, patient has increasing pulmonary vascular congestion and pulmonary edema. Discussed with nephrology. Will place hemodialysis catheter and start dialysis today for fluid removal. 09/13: Remains intubated sedated with propofol, started on hemodialysis yesterday achieving negative balance. However pulmonary edema persistent. Wakes up to command weakly follows. Creatinine slightly improved with dialysis. Urine output 1.8 L in 24 hours 09/14: Patient sedated on fentanyl and propofol infusions. Cardiac index now 2.8, the patient continues on milrinone. Chest x-ray reveals pulmonary edema, patient was dialyzed 4 L removed yesterday and urine output 1150 in the last 24 hours. 09/15: Remains lightly sedated on low-dose propofol and fentanyl. Wakes up easily follows commands. Currently on milrinone 0.2 mcg/kg/min. Reduce to 0.15 mcg/kg/min due to mild hypotension. Start CPAP trials. Urine output 700 mL. Discussed with nephrology dialyzed today. Chest x-ray remains essentially unchanged on my review with some persistent pulmonary edema but overall improving 09/16: Patient continues to achieve negative balance with hemodialysis. 4 L removed yesterday, dialysis again today. Plan for CPAP trial after hemodialysis. Lightly sedated with propofol and fentanyl. Continue milrinone at 0.15 mcg/kg/min. Cardiac index 2.2 09/17: Patient was extubated yesterday maintaining oxygen saturation on Ventimask. Chest x-ray shows worsening pulmonary edema. Patient is almost anuric now. I have discussed with Dr. Majano regarding hemodialysis sooner today. He is agreeable. Continues to be on milrinone at the lowest dose. Cardiac index maintained at 2.2. Will attempt to get a limited echo as the patient is extubated to evaluate ejection fraction 09/18: No acute events reported overnight, remains on Ventimask maintaining saturation above 90%. Occasionally lethargic but follows commands. Remains on milrinone will start weaning today. Hemodialysis yesterday with 4 L removed. Urine output only 125 mL in 24 hours. Repeat limited echo after extubation also very limited windows Objective Vital Signs / I&O: Vital Signs 09/17/18 09:00 09/17/18 09:01 09/17/18 10:00 Pulse Rate 104 H 103 H 106 H Respiratory Rate Blood Pressure 112/69 92/70 L Pulse Oximetry 93 L 97 94 L 09/17/18 11:00 09/17/18 11:01 09/17/18 11:02 Pulse Rate 108 H 109 H 108 H Respiratory Rate 21 Blood Pressure 110/52 L Pulse Oximetry 95 95 09/17/18 12:00 09/17/18 12:06 09/17/18 13:00 Pulse Rate 112 H 111 H 112 H Respiratory Rate Blood Pressure 73/48 L 70/52 L Pulse Oximetry 92 L 93 L 100 09/17/18 14:00 09/17/18 14:01 09/17/18 14:34 Pulse Rate 113 H 112 H 115 H Respiratory Rate Blood Pressure 80/53 L 77/61 L Pulse Oximetry 91 L 93 L 93 L 09/17/18 15:00 09/17/18 15:01 09/17/18 16:00 Pulse Rate 114 H 115 H 114 H Respiratory Rate Blood Pressure 89/57 L 90/53 L Pulse Oximetry 94 L 93 L 95 09/17/18 16:10 09/17/18 16:26 09/17/18 17:00 Pulse Rate 113 H 115 H Respiratory Rate 20 Blood Pressure Pulse Oximetry 98 92 L 09/17/18 17:49 09/17/18 18:00 09/17/18 19:00 Pulse Rate 113 H 111 H 109 H Respiratory Rate Blood Pressure 100/68 101/68 100/64 Pulse Oximetry 96 94 L 97 09/17/18 20:00 09/17/18 20:04 09/17/18 22:00 Pulse Rate 109 H 110 H 111 H Respiratory Rate 22 16 Blood Pressure 103/54 L Pulse Oximetry 94 L 09/17/18 23:44 09/18/18 00:00 09/18/18 01:05 Pulse Rate 107 H 110 H Respiratory Rate 20 20 20 Blood Pressure 109/56 L Pulse Oximetry 95 09/18/18 02:00 09/18/18 03:45 09/18/18 04:00 Pulse Rate 112 H 105 H 105 H Respiratory Rate 20 20 Blood Pressure 102/51 L Pulse Oximetry 94 L 09/18/18 06:00 09/18/18 07:00 09/18/18 08:00 Pulse Rate 105 H 105 H Respiratory Rate 18 Blood Pressure Pulse Oximetry 94 L Intake & Output 09/17/18 09/18/18 09/18/18 18:59 06:59 18:59 Intake Total 250 / 250 1300 / 1300 Output Total 4125 / 4125 Balance -3875 / -3875 1300 / 1300 Weight 140.8 kg Intake: IV 250 / 250 1300 / 1300 Heparin/D5W 25,000 U/250 mL 25, 250 / 250 000 unit In 250 ml @ Per Protocol IV.CONT TITRATE PRN Rx #:[id number] Primacor Inj 20 MG In NS Inj 80 100 / 100 50 / 50 ML @ Per Protocol IV.CONT .Q0M [facility] Rx#:[id number] Zyvox 600 mg Premix 300 ML @ 600 / 600 300 mls/hr IV.SIG Q12H [facility] Rx#: [id number] Zosyn 2.25 GM Premix 50 ML @ 50 / 50 150 / 150 100 mls/hr IV.SIG Q6H [facility] Rx#: [id number] fentaNYL 10 mcg/mL Premix Drip 250 / 250 2,500 mcg In 250 ml @ 50 MCG/HR 5 mls/hr IV.SIG TITRATE PRN Rx #:[id number] Output: Hemodialysis Amount 4000 / 4000 Urine Amount (Catheter) 125 / 125 Indwelling Urethral Catheter 125 / 125 Other: # Voids 2 Date of Last Bowel Movement 09/15/18 09/15/18 # Incontinent Bowel Movements 4 0 Result Diagrams: 09/18/18 05:07 09/18/18 05:07 Objective Remarks: GENERAL: Patient is 47 yo morbidly obese -[place] female, maintaining oxygen saturation above 90% with Ventimask SKIN: Warm and dry. HEAD: Normocephalic. EYES: No scleral icterus. No injection or drainage. NECK: Supple, trachea midline. Unable to appreciate JVD due to body habitus CARDIOVASCULAR: Regular rate and rhythm without murmurs, gallops, or rubs. On IV heparin. On milrinone at 0.125 mcg/kg/min RESPIRATORY: Breath sounds equal bilaterally. Air entry diminished at the bases. Bilateral coarse rhonchi and few wheezes GASTROINTESTINAL: Abdomen soft, obese ,non-tender, nondistended. MUSCULOSKELETAL: No cyanosis, + edema. Neuro: Alert awake, wakes up easily able to talk, oriented. Moves extremities purposefully. Follows commands x4 Assessment and Plan - Assessment and Plan Plan: ASSESSMENT: Acute hypoxemic respiratory failure-slowly improving Acute systolic heart failure Pulmonary edema Probable pneumonia Sepsis Acute kidney failure, anuric Acute pulmonary embolism Obesity hypoventilation syndrome Mild elevated trop Leukocytosis Elevated AST Morbid obesity PLAN: Neuro: Off all continuous sedation. Neuro exam normal except for lethargic CT brain: No acute intracranial findings Pulm: Extubated 09/16/2018, maintaining airway, maintaining oxygen saturation about 93% on Ventimask Bronchodilators, CTA chest: Very limited examination due to patient body habitus. Elongated filling defect in the right pulmonary artery suspicious for PE. Moderate-sized area consolidation of right lower lobe. Bilateral dependent lower lobe atelectasis. CXR -pulm edema Continue Heparin drip. Monitor PTT per protocol. Broad-spectrum antibiotics with Zosyn, Zyvox CV: Started on milrinone 09/13/2018 to maintain cardiac index more than 2.2. Now at 0.1 mcg/kg/min, attempt wean to DC today 09/18/2018 Echo 09/09: Technically difficult study making assessment of left ventricular function and wall motion. Suboptimal. Grossly, left ventricular function appears severely reduced. probable global hypokinesis. Repeat limited echo 09/17/2018, very poor windows difficult to interpret Cards Dr. Law following Continue fluid removal with hemodialysis : Monitor renal function, I/O's, avoid nephrotoxins. Fluid removal with hemodialysis started 09/12/[address] Majano abdomen: No masses or hydronephrosis, enlarged liver likely due to fatty infiltration. GI: On Pepcid for GI prophylaxis, advance diet as tolerated. Speech and swallow eval ID: Continue abx (continue Zosyn, discontinued vancomycin 09/11/2018) monitor for signs of infections ( fever, WBC) Started Zyvox due to slight increase in WBC count, 13.5 Strep pneumonia and Legionella urinary Ag negative 09/09 Blood, sputum and urine cx: All negative to date Increase in WBC count noted today. Culture if patient spikes fever Heme: Monitor CBC, coags- on Heparin drip. Endo: SSI with accuchecks for glycemic control DVT GI prophylaxis -SCDs -Heparin drip -Pepcid Level 3 Patient continues to be critically ill, her respiratory status was improved and she was able to be extubated 09/16. However renal failure and anuria persist along with systolic heart failure and pulmonary edema. She is at risk of acute decompensation and requiring mechanical ventilation. Attempt to wean to DC milrinone Code Status: Full
--- NOTE | 2018-09-18 09:27 | XR ---
EXAM DATE: 09/18/2018 9:18 AM EST AGE/SEX: 47 years / Female INDICATIONS: Respiratory failure. CLINICAL DATA: This is the patient's subsequent encounter. Patient reports that signs and symptoms h ave been present for 1 week and indicates a pain score of Nonresponsive. MEDICAL/SURGICAL HISTORY: Congestive heart failure. Non-responsive. COMPARISON: [facility], CHEST 1V SINGLE AP, 09/17/2018. . FINDINGS: Dialysis catheter in good position. Moderate interstitial edema and cardiomegaly consistent with flui d overload. There is no pneumothorax. CONCLUSION: Dialysis catheter in good position. Moderate interstitial edema with fluid overload, with some improv ement in the interval. Electronically signed by: Paramjit Guillen MD Board Certified Radiologist 09/18/2018 9:26 AM EST
--- NOTE | 2018-09-18 10:13 | P.PNNP ---
Subjective Interval history: Patient was seen, no distress, on venti-mask. Patient got dialysis yesterday, 4 L removed. Will hold dialysis today. Renal function declined and urine output decreased. HD mainly for fluid removal. <Jennifer Bernalkwaku - Last Filed: 09/18/18 10:09> Physical Exam Vital signs: Vital Signs 09/17/18 11:00 09/17/18 11:01 09/17/18 11:02 Temperature Pulse Rate 108 H 109 H 108 H Respiratory Rate 21 Blood Pressure 110/52 L Pulse Oximetry 95 95 09/17/18 12:00 09/17/18 12:06 09/17/18 13:00 Temperature Pulse Rate 112 H 111 H 112 H Respiratory Rate Blood Pressure 73/48 L 70/52 L Pulse Oximetry 92 L 93 L 100 09/17/18 14:00 09/17/18 14:01 09/17/18 14:34 Temperature Pulse Rate 113 H 112 H 115 H Respiratory Rate Blood Pressure 80/53 L 77/61 L Pulse Oximetry 91 L 93 L 93 L 09/17/18 15:00 09/17/18 15:01 09/17/18 16:00 Temperature Pulse Rate 114 H 115 H 114 H Respiratory Rate Blood Pressure 89/57 L 90/53 L Pulse Oximetry 94 L 93 L 95 09/17/18 16:10 09/17/18 16:26 09/17/18 17:00 Temperature Pulse Rate 113 H 115 H Respiratory Rate 20 Blood Pressure Pulse Oximetry 98 92 L 09/17/18 17:49 09/17/18 18:00 09/17/18 19:00 Temperature Pulse Rate 113 H 111 H 109 H Respiratory Rate Blood Pressure 100/68 101/68 100/64 Pulse Oximetry 96 94 L 97 09/17/18 20:00 09/17/18 20:04 09/17/18 22:00 Temperature Pulse Rate 109 H 110 H 111 H Respiratory Rate 22 16 Blood Pressure 103/54 L Pulse Oximetry 94 L 09/17/18 23:44 09/18/18 00:00 09/18/18 01:05 Temperature Pulse Rate 107 H 110 H Respiratory Rate 20 20 20 Blood Pressure 109/56 L Pulse Oximetry 95 09/18/18 02:00 09/18/18 03:45 09/18/18 04:00 Temperature Pulse Rate 112 H 105 H 105 H Respiratory Rate 20 20 Blood Pressure 102/51 L Pulse Oximetry 94 L 09/18/18 06:00 09/18/18 07:00 09/18/18 08:00 Temperature 98.6 F Pulse Rate 105 H 105 H 105 H Respiratory Rate 18 18 Blood Pressure 128/62 Pulse Oximetry 94 L 09/18/18 10:00 Temperature Pulse Rate 109 H Respiratory Rate Blood Pressure Pulse Oximetry Intake & Output 09/17/18 09/18/18 09/18/18 18:59 06:59 18:59 Intake Total 250 / 250 1300 / 1300 Output Total 4125 / 4125 Balance -3875 / -3875 1300 / 1300 Weight 140.8 kg Intake: IV 250 / 250 1300 / 1300 Heparin/D5W 25,000 U/250 mL 25, 250 / 250 000 unit In 250 ml @ Per Protocol IV.CONT TITRATE PRN Rx #:[id number] Primacor Inj 20 MG In NS Inj 80 100 / 100 50 / 50 ML @ Per Protocol IV.CONT .Q0M [facility] Rx#:[id number] Zyvox 600 mg Premix 300 ML @ 600 / 600 300 mls/hr IV.SIG Q12H [facility] Rx#: [id number] Zosyn 2.25 GM Premix 50 ML @ 50 / 50 150 / 150 100 mls/hr IV.SIG Q6H [facility] Rx#: [id number] fentaNYL 10 mcg/mL Premix Drip 250 / 250 2,500 mcg In 250 ml @ 50 MCG/HR 5 mls/hr IV.SIG TITRATE PRN Rx #:[id number] Output: Hemodialysis Amount 4000 / 4000 Urine Amount (Catheter) 125 / 125 Indwelling Urethral Catheter 125 / 125 Other: # Voids 2 Date of Last Bowel Movement 09/15/18 09/15/18 09/15/18 # Incontinent Bowel Movements 4 0 Narrative: GENERAL: No distress, morbidly obese. SKIN: Warm and dry. HEAD: Normocephalic. NECK: Supple, trachea midline. CARDIOVASCULAR: Regular rate and rhythm. RESPIRATORY: Air entry diminished at the bases. GASTROINTESTINAL: Abdomen soft, obese ,non-tender. MUSCULOSKELETAL: + edema. - Urinary Catheter Management Indwelling Urethral Catheter Cath placed during this visit: yes, but has since been removed by the nurse Reason for continuing: Hourly intake/output Insertion date: 09/08/18 Insertion time: 22:52 Removal date: 09/17/18 Removal time: 09:10 <Venkatesh Bernal - Last Filed: 09/18/18 10:09> Vital signs: Vital Signs 09/19/18 00:00 09/19/18 02:00 09/19/18 04:00 Temperature 98.7 F 98.7 F Pulse Rate 106 H 101 H 97 H Respiratory Rate 18 18 Blood Pressure 147/73 H 146/70 H Pulse Oximetry 98 97 09/19/18 06:00 09/19/18 08:00 09/19/18 08:11 Temperature 98.4 F Pulse Rate 101 H 97 H 97 H Respiratory Rate 19 20 Blood Pressure 142/89 H Pulse Oximetry 96 09/19/18 10:00 09/19/18 12:00 09/19/18 14:00 Temperature 98.5 F Pulse Rate 97 H 101 H 98 H Respiratory Rate 20 Blood Pressure 108/60 Pulse Oximetry 93 L 09/19/18 15:57 09/19/18 16:00 09/19/18 18:00 Temperature 98.2 F Pulse Rate 101 H 100 H 101 H Respiratory Rate 18 18 Blood Pressure 94/58 L Pulse Oximetry 100 09/19/18 21:06 Temperature Pulse Rate 102 H Respiratory Rate 20 Blood Pressure Pulse Oximetry 96 Intake & Output 09/19/18 09/19/18 09/20/18 06:59 18:59 06:59 Intake Total 600 / 600 1320 / 1320 50 / 50 Output Total 0 / 0 3000 / 3000 Balance 600 / 600 -1680 / -1680 50 / 50 Weight 141.8 kg Intake: IV 400 / 400 600 / 600 50 / 50 Heparin/D5W 25,000 U/250 mL 25, 250 / 250 000 unit In 250 ml @ Per Protocol IV.CONT TITRATE PRN Rx #:[id number] Zyvox 600 mg Premix 300 ML @ 300 / 300 300 / 300 300 mls/hr IV.SIG Q12H [facility] Rx#: [id number] Zosyn 2.25 GM Premix 50 ML @ 100 / 100 50 / 50 50 / 50 100 mls/hr IV.SIG Q6H [facility] Rx#: [id number] Oral 200 / 200 720 / 720 Output: Urine 0 / 0 0 / 0 Hemodialysis Amount 3000 / 3000 Other: Date of Last Bowel Movement 09/18/18 09/19/18 # Bowel Movements 1 1 - Urinary Catheter Management Indwelling Urethral Catheter Cath placed during this visit: no <Chris Majano - Last Filed: 09/19/18 22:03> Assessment and Plan - Assessment (1) Acute kidney failure Code(s): N17.9 - Acute kidney failure, unspecified Status: Acute Plan: Baseline renal function is not known. May have renal hypoperfusion. Could have developed contrast nephropathy after CTA. Clinically she appears to fluid overloaded. Patient got dialysis yesterday, 4 L removed. Will hold dialysis today. Renal function declined and urine output decreased. HD mainly for fluid removal. Patient had right IJ hemodialysis catheter placement. Monitor for renal recovery. Monitor urine output. (2) Respiratory failure Code(s): J96.90 - Respiratory failure, unspecified, unspecified whether with hypoxia or hypercapnia Status: Acute Plan: s/p extubation. Patient on Ventimask. (3) Obesity Code(s): E66.9 - Obesity, unspecified Status: Acute Plan: patient has obesity-hypoventilation syndrome. (4) Pulmonary embolism Code(s): I26.99 - Other pulmonary embolism without acute cor pulmonale Status : Acute Plan: On Heparin. <Venkatesh Bernal - Last Filed: 09/18/18 10:09> - Assessment (1) Acute kidney failure Code(s): N17.9 - Acute kidney failure, unspecified Status: Acute (2) Respiratory failure Code(s): J96.90 - Respiratory failure, unspecified, unspecified whether with hypoxia or hypercapnia Status: Acute (3) Obesity Code(s): E66.9 - Obesity, unspecified Status: Acute Qualifiers: Obesity classification: adult class 3 (BMI >= 40) (4) Pulmonary embolism Code(s): I26.99 - Other pulmonary embolism without acute cor pulmonale Status : Acute - Attending Attestation patient was seen and examined. Her urine output has dropped. Needs continued dialysis support for the time being. Avoid nephrotoxic agents. <Chris Majano - Last Filed: 09/19/18 22:03>
[2018-09-18] MEDS ORDERED: Milrinone Inj 20 MG in Sodium Chlor 0.9% Inj 80 ML IV.CONT SCH (12:00)
--- NOTE | 2018-09-18 13:02 | P.PNPAL ---
Reason for Visit Reason for visit: a. To assist with evaluation and management of symptoms including: dyspnea, pain, debility. b. To assist medical decision maker(s) with: better understanding of current medical conditions; weighing benefits/burdens of medical treatment options; making medical treatment decisions. Subjective Subjective/Interval History: Follow-up medically necessary for symptom management. Patient seen and examined in the room on MICU. No family at bedside. Patient is alert, oriented to self, place and situation. Patient talking to her son over the telephone. Patient denies pain during examination though she mentioned to the speech therapy walked in a few minutes later that she has a headache. She is currently on nasal cannula with O2 sats saturation fluctuating from high 80s to mid 90s. Patient denies shortness of breath though she seems to be short of breath during conversation. Patient remains on heparin infusion and Milrinone infusion. She had hemodialysis with removal of 4 L on 09/17. Renal function worsening with a BUN/creatinine= 39/6.55, sodium 131 and calcium 10.7. Urine output only 125 mL's/24hrs. Briefly discussed reintubation and importance of swallow evaluation since patient was complaining that she is thirsty and has not eaten anything after being medically extubated. Explained to patient importance of swallow evaluation. Patient states that she would want to be reintubated if she is in respiratory distress and if physicians know that it would help her live longer. Expressed concern regarding patient's medical condition that intubation may or may not help given her ongoing multiple comorbidities. Patient stated that if intubation would not not help she would not want it though she feels the medical team should try to keep doing everything they can to save her. Patient expresses that she has a will to live because she would want to see her grandchildren grow. Explored what patient would consider as quality of life. Patient continued to say that she has cared for many of her loved ones and she would not want to continue with aggressive treatment or to live if she is in a vegetative state. Encouraged patient to continue these discussions with her daughter whom she designated to as her healthcare surrogate. Speech therapy in the room to evaluate patient for swallowing, recommended mechanical soft diet with thin liquids. Family/Friend Interactions: No family at bedside. . Advance Directives Living Will: Never completed Health Care Surrogate: Copy in medical record Durable Power of Oven Worker: Never completed Health Care Surrogate Name and Number: ANKUR, Avelina Hadley, daughter: [phone] Documented care wishes:: No Living Will. Completed designation of health care surrogate on 09/16/18 naming her daughter Avelina Hadley as HCS. Objective Vital Signs: Vital Signs 09/17/18 14:00 09/17/18 14:01 09/17/18 14:34 Temperature Pulse Rate 113 H 112 H 115 H Respiratory Rate Blood Pressure 80/53 L 77/61 L Pulse Oximetry 91 L 93 L 93 L 09/17/18 15:00 09/17/18 15:01 09/17/18 16:00 Temperature Pulse Rate 114 H 115 H 114 H Respiratory Rate Blood Pressure 89/57 L 90/53 L Pulse Oximetry 94 L 93 L 95 09/17/18 16:10 09/17/18 16:26 09/17/18 17:00 Temperature Pulse Rate 113 H 115 H Respiratory Rate 20 Blood Pressure Pulse Oximetry 98 92 L 09/17/18 17:49 09/17/18 18:00 09/17/18 19:00 Temperature Pulse Rate 113 H 111 H 109 H Respiratory Rate Blood Pressure 100/68 101/68 100/64 Pulse Oximetry 96 94 L 97 09/17/18 20:00 09/17/18 20:04 09/17/18 22:00 Temperature Pulse Rate 109 H 110 H 111 H Respiratory Rate 22 16 Blood Pressure 103/54 L Pulse Oximetry 94 L 09/17/18 23:44 09/18/18 00:00 09/18/18 01:05 Temperature Pulse Rate 107 H 110 H Respiratory Rate 20 20 20 Blood Pressure 109/56 L Pulse Oximetry 95 09/18/18 02:00 09/18/18 03:45 09/18/18 04:00 Temperature Pulse Rate 112 H 105 H 105 H Respiratory Rate 20 20 Blood Pressure 102/51 L Pulse Oximetry 94 L 09/18/18 06:00 09/18/18 07:00 09/18/18 08:00 Temperature 98.6 F Pulse Rate 105 H 105 H 105 H Respiratory Rate 18 18 Blood Pressure 128/62 Pulse Oximetry 94 L 09/18/18 10:00 09/18/18 11:10 Temperature Pulse Rate 109 H 104 H Respiratory Rate 18 Blood Pressure Pulse Oximetry Intake & Output 09/17/18 09/18/18 09/18/18 18:59 06:59 18:59 Intake Total 250 / 250 1300 / 1300 50 / 50 Output Total 4125 / 4125 Balance -3875 / -3875 1300 / 1300 50 / 50 Weight 140.8 kg Intake: IV 250 / 250 1300 / 1300 50 / 50 Heparin/D5W 25,000 U/250 mL 25, 250 / 250 000 unit In 250 ml @ Per Protocol IV.CONT TITRATE PRN Rx #:[id number] Primacor Inj 20 MG In NS Inj 80 100 / 100 50 / 50 ML @ Per Protocol IV.CONT .Q0M VICKY Rx#:[id number] Zyvox 600 mg Premix 300 ML @ 600 / 600 300 mls/hr IV.SIG Q12H VICKY Rx#: [id number] Zosyn 2.25 GM Premix 50 ML @ 50 / 50 150 / 150 50 / 50 100 mls/hr IV.SIG Q6H VICKY Rx#: [id number] fentaNYL 10 mcg/mL Premix Drip 250 / 250 2,500 mcg In 250 ml @ 50 MCG/HR 5 mls/hr IV.SIG TITRATE PRN Rx #:[id number] Output: Hemodialysis Amount 4000 / 4000 Urine Amount (Catheter) 125 / 125 Indwelling Urethral Catheter 125 / 125 Other: # Voids 2 Date of Last Bowel Movement 09/15/18 09/15/18 09/15/18 # Incontinent Bowel Movements 4 0 Physical Exam: CONSTITUTIONAL/GENERAL: This is an overweight female, on [facility] vent. TUBES/LINES/DRAINS: right subclavian central line, vas-cath, a-line, PIV, Edwards , nasal cannula. Bariatric bed. SKIN: No jaundice, rashes, or lesions. Ecchymoses on upper extremities. No wounds seen anteriorly. Normothermic. EYES: pupils equal and reactive. ENT: hearing adequate. Nose without bleeding or purulent drainage. Dry oral mucosa. CARDIOVASCULAR: Distant heart sounds. Regular rate and rhythm without murmurs. RESPIRATORY/CHEST: Mildly labored respirations. Diminished, breath sounds. Currently on nasal cannula GASTROINTESTINAL: Abdomen protuberant, soft, nondistended. No guarding. Bowel sounds distant. GENITOURINARY: Without palpable bladder distension. Edwards catheter in place. MUSCULOSKELETAL: Extremities with edema. NEUROLOGICAL: Awake and alert, oriented to self, place and situation. Follows commands. Speech -soft voice, clear PSYCHIATRIC: Calm. Diagnostic Tests Laboratory: Laboratory Results - last 72 hr 09/15/18 09/16/18 09/16/18 21:07 00:17 04:20 WBC RBC Hgb Hct MCV MCH MCHC RDW Plt Count MPV Prelim Diff (Auto) Neut % (Auto) Lymph % (Auto) Pitt % (Auto) Eos % (Auto) Baso % (Auto) Neut # (Auto) Lymph # (Auto) Pitt # (Auto) Eos # (Auto) Baso # (Auto) WBC Differential Diff Scan Differential Comment Platelet Estimate Platelet Morphology APTT 37.3 H Puncture Site Patient Temperature O2 Saturation ABG pH ABG pCO2 ABG pO2 ABG HCO3 ABG O2 Content ABG Base Excess ABG Methemoglobin Gabe Test Hemoglobin Carboxyhemoglobin O2 Delivery Device Vent Setting Inspired O2 Critical Value Sodium Potassium Chloride Carbon Dioxide Anion Gap BUN Creatinine Estimated GFR POC Glucose 137 H 148 H Random Glucose Calcium Phosphorus Total Bilirubin AST ALT Alkaline Phosphatase Ammonia Total Protein Albumin 09/16/18 09/16/18 09/16/18 04:20 04:20 08:04 WBC 11.1 H RBC 3.99 L Hgb 10.3 L Hct 31.6 L MCV 79.3 L MCH 25.9 L MCHC 32.6 RDW 17.2 Plt Count 354 MPV 7.0 Prelim Diff (Auto) Neut % (Auto) Lymph % (Auto) Pitt % (Auto) Eos % (Auto) Baso % (Auto) Neut # (Auto) Lymph # (Auto) Pitt # (Auto) Eos # (Auto) Baso # (Auto) WBC Differential Diff Scan Differential Comment Platelet Estimate Platelet Morphology APTT Puncture Site Patient Temperature O2 Saturation ABG pH ABG pCO2 ABG pO2 ABG HCO3 ABG O2 Content ABG Base Excess ABG Methemoglobin Gabe Test Hemoglobin Carboxyhemoglobin O2 Delivery Device Vent Setting Inspired O2 Critical Value Sodium 137 Potassium 3.1 L Chloride 97 L Carbon Dioxide 26.8 Anion Gap 13 BUN 37 H Creatinine 5.63 H Estimated GFR 8 L POC Glucose 155 H Random Glucose 126 H Calcium 9.7 Phosphorus Total Bilirubin 0.4 AST 27 ALT 32 Alkaline Phosphatase 86 Ammonia Total Protein 8.5 H Albumin 3.1 L 09/16/18 09/16/18 09/16/18 11:00 12:14 14:10 WBC RBC Hgb Hct MCV MCH MCHC RDW Plt Count MPV Prelim Diff (Auto) Neut % (Auto) Lymph % (Auto) Pitt % (Auto) Eos % (Auto) Baso % (Auto) Neut # (Auto) Lymph # (Auto) Pitt # (Auto) Eos # (Auto) Baso # (Auto) WBC Differential Diff Scan Differential Comment Platelet Estimate Platelet Morphology APTT 41.3 H Puncture Site Adriana Patient Temperature 98.6 O2 Saturation 95 ABG pH 7.43 H ABG pCO2 41 ABG pO2 105 ABG HCO3 27 H ABG O2 Content 15.8 ABG Base Excess 2.5 H ABG Methemoglobin 1.6 Gabe Test Present Hemoglobin 11.7 L Carboxyhemoglobin 0.9 O2 Delivery Device Ventilator Vent Setting Cpap+7/ps+8 Inspired O2 35 Critical Value No Sodium Potassium Chloride Carbon Dioxide Anion Gap BUN Creatinine Estimated GFR POC Glucose 152 H Random Glucose Calcium Phosphorus Total Bilirubin AST ALT Alkaline Phosphatase Ammonia Total Protein Albumin 09/16/18 09/16/18 09/16/18 15:42 20:14 21:45 WBC RBC Hgb Hct MCV MCH MCHC RDW Plt Count MPV Prelim Diff (Auto) Neut % (Auto) Lymph % (Auto) Pitt % (Auto) Eos % (Auto) Baso % (Auto) Neut # (Auto) Lymph # (Auto) Pitt # (Auto) Eos # (Auto) Baso # (Auto) WBC Differential Diff Scan Differential Comment Platelet Estimate Platelet Morphology APTT 35.7 H Puncture Site Patient Temperature O2 Saturation ABG pH ABG pCO2 ABG pO2 ABG HCO3 ABG O2 Content ABG Base Excess ABG Methemoglobin Gabe Test Hemoglobin Carboxyhemoglobin O2 Delivery Device Vent Setting Inspired O2 Critical Value Sodium Potassium Chloride Carbon Dioxide Anion Gap BUN Creatinine Estimated GFR POC Glucose 188 H 148 H Random Glucose Calcium Phosphorus Total Bilirubin AST ALT Alkaline Phosphatase Ammonia Total Protein Albumin 09/16/18 09/17/18 09/17/18 23:34 06:09 06:09 WBC 13.5 H RBC 4.35 Hgb 11.3 L Hct 35.8 MCV 82.3 MCH 25.9 L MCHC 31.5 L RDW 17.4 H Plt Count 417 MPV 7.8 Prelim Diff (Auto) Neut % (Auto) Lymph % (Auto) Pitt % (Auto) Eos % (Auto) Baso % (Auto) Neut # (Auto) Lymph # (Auto) Pitt # (Auto) Eos # (Auto) Baso # (Auto) WBC Differential Diff Scan Differential Comment Platelet Estimate Platelet Morphology APTT 39.9 H Puncture Site Patient Temperature O2 Saturation ABG pH ABG pCO2 ABG pO2 ABG HCO3 ABG O2 Content ABG Base Excess ABG Methemoglobin Gabe Test Hemoglobin Carboxyhemoglobin O2 Delivery Device Vent Setting Inspired O2 Critical Value Sodium Potassium Chloride Carbon Dioxide Anion Gap BUN Creatinine Estimated GFR POC Glucose 130 H Random Glucose Calcium Phosphorus Total Bilirubin AST ALT Alkaline Phosphatase Ammonia Total Protein Albumin 09/17/18 09/17/18 09/17/18 06:09 08:22 08:35 WBC RBC Hgb Hct MCV MCH MCHC RDW Plt Count MPV Prelim Diff (Auto) Neut % (Auto) Lymph % (Auto) Pitt % (Auto) Eos % (Auto) Baso % (Auto) Neut # (Auto) Lymph # (Auto) Pitt # (Auto) Eos # (Auto) Baso # (Auto) WBC Differential Diff Scan Differential Comment Platelet Estimate Platelet Morphology APTT Puncture Site Patient Temperature O2 Saturation ABG pH ABG pCO2 ABG pO2 ABG HCO3 ABG O2 Content ABG Base Excess ABG Methemoglobin Gabe Test Hemoglobin Carboxyhemoglobin O2 Delivery Device Vent Setting Inspired O2 Critical Value Sodium 137 133 L Potassium 3.6 3.5 Chloride 94 L 92 L Carbon Dioxide 27.6 25.5 Anion Gap 15 16 H BUN 37 H 37 H Creatinine 6.06 H 6.32 H Estimated GFR 7 L 7 L POC Glucose 124 H Random Glucose 128 H 156 H Calcium 9.9 10.1 Phosphorus Total Bilirubin 0.5 0.5 AST 22 22 ALT 26 27 Alkaline Phosphatase 93 92 Ammonia Total Protein 9.8 H D 9.5 H Albumin 3.4 3.3 L 09/17/18 09/17/18 09/17/18 08:35 09:00 12:12 WBC 12.4 H RBC 4.09 Hgb 10.7 L Hct 33.6 L MCV 82.3 MCH 26.1 L MCHC 31.8 L RDW 17.1 Plt Count 388 MPV 7.8 Prelim Diff (Auto) Neut % (Auto) Lymph % (Auto) Pitt % (Auto) Eos % (Auto) Baso % (Auto) Neut # (Auto) Lymph # (Auto) Pitt # (Auto) Eos # (Auto) Baso # (Auto) WBC Differential Diff Scan Differential Comment Platelet Estimate Platelet Morphology APTT Puncture Site Patient Temperature O2 Saturation ABG pH ABG pCO2 ABG pO2 ABG HCO3 ABG O2 Content ABG Base Excess ABG Methemoglobin Gabe Test Hemoglobin Carboxyhemoglobin O2 Delivery Device Vent Setting Inspired O2 Critical Value Sodium Potassium Chloride Carbon Dioxide Anion Gap BUN Creatinine Estimated GFR POC Glucose 185 H Random Glucose Calcium Phosphorus Total Bilirubin AST ALT Alkaline Phosphatase Ammonia 20 Total Protein Albumin 09/17/18 09/17/18 09/18/18 19:50 20:40 03:57 WBC RBC Hgb Hct MCV MCH MCHC RDW Plt Count MPV Prelim Diff (Auto) Neut % (Auto) Lymph % (Auto) Pitt % (Auto) Eos % (Auto) Baso % (Auto) Neut # (Auto) Lymph # (Auto) Pitt # (Auto) Eos # (Auto) Baso # (Auto) WBC Differential Diff Scan Differential Comment Platelet Estimate Platelet Morphology APTT 40.9 H Puncture Site Patient Temperature O2 Saturation ABG pH ABG pCO2 ABG pO2 ABG HCO3 ABG O2 Content ABG Base Excess ABG Methemoglobin Gabe Test Hemoglobin Carboxyhemoglobin O2 Delivery Device Vent Setting Inspired O2 Critical Value Sodium Potassium Chloride Carbon Dioxide Anion Gap BUN Creatinine Estimated GFR POC Glucose 169 H 146 H Random Glucose Calcium Phosphorus Total Bilirubin AST ALT Alkaline Phosphatase Ammonia Total Protein Albumin 09/18/18 09/18/18 09/18/18 05:07 05:07 05:07 WBC 16.3 H RBC 4.68 Hgb 12.2 Hct 38.0 MCV 81.3 MCH 26.1 L MCHC 32.1 RDW 17.5 H Plt Count 470 H MPV 7.8 Prelim Diff (Auto) Slide review pending Neut % (Auto) 60.7 Lymph % (Auto) 18.9 Pitt % (Auto) 13.6 H Eos % (Auto) 6.2 H Baso % (Auto) 0.6 Neut # (Auto) 9.9 H Lymph # (Auto) 3.1 Pitt # (Auto) 2.2 H Eos # (Auto) 1.0 H Baso # (Auto) 0.1 WBC Differential . Diff Scan Auto diff confirmed Differential Comment . Platelet Estimate High H Platelet Morphology Normal APTT 44.1 H Puncture Site Patient Temperature O2 Saturation ABG pH ABG pCO2 ABG pO2 ABG HCO3 ABG O2 Content ABG Base Excess ABG Methemoglobin Gabe Test Hemoglobin Carboxyhemoglobin O2 Delivery Device Vent Setting Inspired O2 Critical Value Sodium 131 L Potassium 3.5 Chloride 90 L Carbon Dioxide 24.5 Anion Gap 17 H BUN 39 H Creatinine 6.55 H Estimated GFR 7 L POC Glucose Random Glucose 147 H Calcium 10.7 H Phosphorus Total Bilirubin 0.5 AST 23 ALT 29 Alkaline Phosphatase 98 Ammonia Total Protein 10.6 H D Albumin 3.9 D 09/18/18 09/18/18 05:07 08:36 WBC RBC Hgb Hct MCV MCH MCHC RDW Plt Count MPV Prelim Diff (Auto) Neut % (Auto) Lymph % (Auto) Pitt % (Auto) Eos % (Auto) Baso % (Auto) Neut # (Auto) Lymph # (Auto) Pitt # (Auto) Eos # (Auto) Baso # (Auto) WBC Differential Diff Scan Differential Comment Platelet Estimate Platelet Morphology APTT Puncture Site Patient Temperature O2 Saturation ABG pH ABG pCO2 ABG pO2 ABG HCO3 ABG O2 Content ABG Base Excess ABG Methemoglobin Gabe Test Hemoglobin Carboxyhemoglobin O2 Delivery Device Vent Setting Inspired O2 Critical Value Sodium Potassium Chloride Carbon Dioxide Anion Gap BUN Creatinine Estimated GFR POC Glucose 151 H Random Glucose Calcium Phosphorus 9.0 H Total Bilirubin AST ALT Alkaline Phosphatase Ammonia Total Protein Albumin Result Diagrams: 09/27/18 05:46 09/27/18 05:46 Imaging: Abdomen Ultrasound 09/09/18 00:00 CONCLUSION: 1. Enlarged echogenic liver suggesting fatty infiltration 2. , Gallbladder not visualized Chest CTA 09/09/18 00:00 CONCLUSION: 1. Very limited examination due to patient body habitus. 2. Elongated filling defect in the right pulmonary artery suspicious for pulmonary embolus. Prominent artifact related to patient body habitus is seen through out the central pulmonary arteries limiting the evaluation. The segmental and subsegmental branches cannot be effectively evaluated on this study. Nuclear medicine VQ scan could be performed for further evaluation. 3. Moderate diffuse cardiomegaly. 4. Moderate-sized area of right lower lobe pulmonary consolidation. 5. Bilateral dependent lower lobe atelectasis. Head CT 09/09/18 00:00 CONCLUSION: No acute intracranial findings. . Venous Doppler Study 09/09/18 00:00 CONCLUSION: 1. Negative exam with no evidence of deep venous thrombosis. Chest X-Ray 09/18/18 00:00 CONCLUSION: Dialysis catheter in good position. Moderate interstitial edema with fluid overload, with some improvement in the interval. Procedures: * 09/12/18 - a line, vas-cath placement, HD started * 09/08/18 - intubated Assessment and Plan - Disease Oriented Problem List (1) Acute kidney failure (2) Respiratory failure (3) Obesity (4) Pulmonary embolism - Symptom Scale (1) Chronic pain 0-10 Scale: 5 (2) Dyspnea 0-10 Scale: Unable to quantify (3) Debility 0-10 Scale: Unable to quantify Pertinent Non-Medical Issues: Psychosocial: . 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 Has 1 daughter, Avelina. Spiritual: Baptism valerie. Legal: Patient is currently capacitated to make her own health care decisions. No Living Will. Completed designation of health care surrogate on 09/16/18 naming her daughter Avelina Hadley as HCS. Ethical issues impacting care: No known concerns at this time. Important Contacts: * Avelina Hadley, daughter/ health care surrogate: [phone] * Audra (sp?) Ramana, spouse: [phone] Prognosis: Mrs. Hadley is a 47 year old chronically, critically ill patient with multiple comorbidities now with respiratory, renal and heart failure. Overall prognosis appears poor. Code Status: Full Code Plan: * Decision maker: Patient is capacitated to make her own health care decisions. No Living Will. Completed designation of health care surrogate on 09/16/18 naming her daughter Avelina Hadley as HCS. * FULL CODE -confirmed with pt on 09/16/18 post medical extubation, she desires reintubation if needed. * Medical update provided. Patient desires continued aggressive care including FULL CODE. Patient is willing to continue with aggressive up until she is in a vegetative state. She expresses if she is at a point where she does not know who she is, unable to identify her family, not able to move or eat, she wants to be left to peacefully. * SYMPTOMS: Pain: denies pain during my visit. Potential pain sources include tubes, bedbound status, multiorgan failure. Dyspnea:medically extubated on 09/16. On oxygen via nasal cannula, tolerating well. Denies SOB. Debility: due to elevated BMI, recent, respiratory, renal and heart failure. No new medication recommendations at this time. * Palliative care will continue to follow to assist with symptom management and further clarification of goals of medical treatment as needed. . Attestation Attestation: To help prompt me to consider important information that might be impacting today's encounter and assessment, information from prior notes written by myself or my colleagues may have been "brought forward" into today's note. My signature on this note, however, is an attestation that I personally performed the exam, history, and/or decision-making noted today, and, unless otherwise indicated, the interactions with patient, family, and staff as well as the review of records all occurred today. I also attest that the listed assessment and stated plan reflect my best clinical judgment today based on the combination of historical information, prior notes, and today's exam/ interactions. When time spent is documented, it refers only to time spent today by the signer, or if indicated, combined time spent today by collaborating physician/nurse practitioner.
--- NOTE | 2018-09-18 13:06 | P.PNCA ---
Subjective Interval history: Patient denies any CP, pressure, palpitations or dizziness. Patient does complain of edema and SOB. Medications and Allergies Allergies Allergy/AdvReac Type Severity Reaction Status Date / Time Penicillins Allergy Hives Verified 09/18/18 00:28 lisinopril AdvReac Severe Anaphylaxis Verified 09/18/18 00:28 Home Medications Medication Instructions Recorded Confirmed Type allopurinol 100 mg PO DAILY 09/11/18 09/11/18 History cyclobenzaprine 5 mg PO TID 09/11/18 09/11/18 History furosemide 40 mg PO DAILY 09/11/18 09/11/18 History hydralazine 50 mg PO Q8HR 09/11/18 09/11/18 History insulin detemir U-100 [Levemir 24 unit SUBCUT Q12HR 09/11/18 09/11/18 History U-100 Insulin] insulin regular human [Novolin R 1 sliding scale dose SUBCUT UD 09/11/18 History Regular U-100 Insuln] levothyroxine 50 mcg PO DAILY 09/11/18 09/11/18 History meloxicam DAILY 09/11/18 History potassium chloride 20 meq PO DAILY 09/11/18 09/11/18 History pravastatin 40 mg PO HS 09/11/18 09/11/18 History pregabalin [Lyrica] 50 mg PO BID 09/11/18 09/11/18 History sertraline 50 mg PO HS 09/11/18 09/11/18 History tramadol 50 mg PO Q6H PRN 09/11/18 09/11/18 History Active Medications: Active Medications Acetaminophen (Tylenol) 650 mg PO Q6H PRN PRN Reason: PAIN 1-5 AND/OR FEVER >101F Last Admin: 09/17/18 12:35 Dose: 650 mg Acetaminophen (Tylenol) 650 mg PO UNSCH PRN PRN Reason: SEE LABEL COMMENTS Hydrocodone Bitart/Acetaminophen ([place] 7.5/325) 1 tab PO Q6H PRN PRN Reason: PAIN 6-10;IF ABLE TO TAKE PO Last Admin: 09/17/18 17:44 Dose: 1 tab Al Hydroxide/Mg Hydroxide (Milk Of Magnesia Liq) 30 ml PO Q12H PRN PRN Reason: Mild Constipation Albuterol (Duoneb Neb (Prn)) 1 ampul NEB Q2HR NEB PRN PRN Reason: WHEEZING Last Admin: 09/14/18 10:45 Dose: 1 ampul Albuterol (Duoneb Neb ([place])) 1 ampul NEB Q4HR NEB [facility] Last Admin: 09/18/18 11:09 Dose: 1 ampul Bisacodyl (Dulcolax Supp) 10 mg RECTAL DAILY PRN PRN Reason: SEVERE CONSITIPATION Chlorhexidine Gluconate (Peridex 0.12% Oral Kit) 15 ml OROPHARYNG BID@0800, 2000 [facility] Last Admin: 09/18/18 08:15 Dose: Not Given Clonidine HCl (Catapres) 0.1 mg PO UNSCH PRN PRN Reason: SEE LABEL COMMENTS Cyclobenzaprine HCl (Flexeril) 10 mg PO Q8H PRN PRN Reason: SPASM Last Admin: 09/14/18 18:14 Dose: 10 mg Dextrose (D50w Vial) 50 ml IV.PUSH UNSCH PRN PRN Reason: PER HYPOGLYCEMIA PROTOCOL Diphenhydramine HCl (Benadryl) 25 mg PO UNSCH PRN PRN Reason: SEE LABEL COMMENTS Famotidine (Pepcid Pf Inj) 10 mg IV.PUSH Q12HR [facility] Last Admin: 09/18/18 08:24 Dose: 10 mg Gelatin (Gelfoam 12 Mm/7 Mm Topical) 1 foam TOPICAL PRN PRN PRN Reason: help stop bleeding from site Gentamicin Sulfate (Gentamicin Inj) 20 mg OTHER WITH DIALYSIS PRN PRN Reason: Dwell Gentamycin Lock Last Admin: 09/17/18 11:55 Dose: 20 mg Glucagon (Glucagon Inj) 1 mg OTHER PRN PRN PRN Reason: for Hypoglycemia Protocol Heparin Sodium (Porcine) (Heparin Inj) 8,000 units OTHER WITH DIALYSIS PRN PRN Reason: for machine prime Last Admin: 09/16/18 22:55 Dose: 2,500 units Heparin Sodium (Porcine) (Heparin Inj) 1,000 units OTHER WITH DIALYSIS PRN PRN Reason: Dwell Heparin to Fill Catheter Last Admin: 09/17/18 11:55 Dose: 1,000 units Diltiazem HCl 125 mg/ Sodium (Chloride) 125 mls @ 5 mls/hr IV.CONT TITRATE PRN ; Protocol PRN Reason: Per Protocol Last Titration: 09/11/18 19:00 Dose: Infused Heparin Sodium/Dextrose (Heparin/D5w 25,000 U/250 Ml) 25,000 unit in 250 mls @ 0 mls/hr IV.CONT TITRATE PRN; Protocol PRN Reason: Per Protocol Last Admin: 09/17/18 22:36 Dose: 1,600 units/hr, 16 mls/hr Piperacillin/Tazobactam/Dextrose (Zosyn 2.25 Gm Premix) 50 mls @ 100 mls/hr IV.SIG Q6H [facility] Last Infusion: 09/18/18 10:25 Dose: Infused Albumin Human (Flexbumin 25% Inj) 100 mls @ 60 mls/hr IV.SIG WITH DIALYSIS PRN PRN Reason: hypotension / volume replace Last Infusion: 09/13/18 16:50 Dose: Infused Sodium Chloride (Ns Inj) 1,000 mls @ 0 mls/hr OTHER .Q0M PRN PRN Reason: for prime and rinse back Sodium Chloride (Ns Inj) 1,000 mls @ 200 mls/hr OTHER .Q5H PRN PRN Reason: for dialyzer flush PRN Sodium Chloride (Ns Inj) 1,000 mls @ 0 mls/hr IV.CONT .Q0M PRN PRN Reason: hypotension / volume replace Linezolid (Zyvox 600 Mg Premix) 300 mls @ 300 mls/hr IV.SIG Q12H [facility] Last Admin: 09/18/18 08:25 Dose: 300 mls/hr Milrinone Lactate 20 mg/ (Sodium Chloride) 100 mls @ 0 mls/hr IV.CONT .Q0M [facility] ; Protocol Insulin Human Regular (Novolin R [employer] Sugar Inj) 0 units SQ Q4HR [facility]; Protocol Last Admin: 09/18/18 08:36 Dose: Not Given Lactulose (Lactulose Liq) 30 ml PO DAILY PRN PRN Reason: SEVERE CONSITIPATION Lactulose (Lactulose Liq) 30 ml PO BID [facility] Last Admin: 09/18/18 08:16 Dose: Not Given Mannitol (Mannitol Inj) 12.5 gm IV.PUSH UNSCH PRN PRN Reason: hypotension / volume replace Miscellaneous Medication () 1 each OROPHARYNG 0000,0400,1200,1600 [facility] Last Admin: 09/18/18 11:37 Dose: Not Given Morphine Sulfate (Morphine Inj) 2 mg IV.PUSH Q2H PRN PRN Reason: PAIN SCALE 6 TO 10 Last Admin: 09/18/18 00:29 Dose: 2 mg Nitroglycerin (Nitrostat Sl) 0.4 mg SL Q5M PRN PRN Reason: CHEST PAIN Ondansetron HCl (Zofran Inj) 4 mg IV.PUSH Q6H PRN PRN Reason: NAUSEA OR VOMITING Senna/Docusate Sodium (Nereida-Colace) 1 tab PO BID [facility] Last Admin: 09/18/18 08:16 Dose: Not Given Sennosides (Senokot) 17.2 mg PO Q12H PRN PRN Reason: Moderate Constipation Sevelamer Carbonate (Renvela) 800 mg PO TIDAC [facility] Sodium Chloride (Ns Flush) 2 ml IV.FLUSH BID [facility] Last Admin: 09/18/18 08:25 Dose: 2 ml Sodium Chloride (Ns Flush) 2 ml IV.FLUSH PRN PRN PRN Reason: FLUSH AFTER USING IV ACCESS Sodium Chloride (Ns Flush) 5 ml IV.FLUSH PRN PRN PRN Reason: flush each lumen during HD Physical Exam Vital signs: Vital Signs 09/17/18 13:00 09/17/18 14:00 09/17/18 14:01 Temperature Pulse Rate 112 H 113 H 112 H Respiratory Rate Blood Pressure 70/52 L 80/53 L Pulse Oximetry 100 91 L 93 L 09/17/18 14:34 09/17/18 15:00 09/17/18 15:01 Temperature Pulse Rate 115 H 114 H 115 H Respiratory Rate Blood Pressure 77/61 L 89/57 L Pulse Oximetry 93 L 94 L 93 L 09/17/18 16:00 09/17/18 16:10 09/17/18 16:26 Temperature Pulse Rate 114 H 113 H Respiratory Rate 20 Blood Pressure 90/53 L Pulse Oximetry 95 98 09/17/18 17:00 09/17/18 17:49 09/17/18 18:00 Temperature Pulse Rate 115 H 113 H 111 H Respiratory Rate Blood Pressure 100/68 101/68 Pulse Oximetry 92 L 96 94 L 09/17/18 19:00 09/17/18 20:00 09/17/18 20:04 Temperature Pulse Rate 109 H 109 H 110 H Respiratory Rate 22 16 Blood Pressure 100/64 103/54 L Pulse Oximetry 97 94 L 09/17/18 22:00 09/17/18 23:44 09/18/18 00:00 Temperature Pulse Rate 111 H 107 H 110 H Respiratory Rate 20 20 Blood Pressure 109/56 L Pulse Oximetry 95 09/18/18 01:05 09/18/18 02:00 09/18/18 03:45 Temperature Pulse Rate 112 H 105 H Respiratory Rate 20 20 Blood Pressure Pulse Oximetry 09/18/18 04:00 09/18/18 06:00 09/18/18 07:00 Temperature Pulse Rate 105 H 105 H 105 H Respiratory Rate 20 18 Blood Pressure 102/51 L Pulse Oximetry 94 L 09/18/18 08:00 09/18/18 10:00 09/18/18 11:10 Temperature 98.6 F Pulse Rate 105 H 109 H 104 H Respiratory Rate 18 18 Blood Pressure 128/62 Pulse Oximetry 94 L Intake & Output 09/17/18 09/18/18 09/18/18 18:59 06:59 18:59 Intake Total 250 / 250 1300 / 1300 50 / 50 Output Total 4125 / 4125 Balance -3875 / -3875 1300 / 1300 50 / 50 Weight 140.8 kg Intake: IV 250 / 250 1300 / 1300 50 / 50 Heparin/D5W 25,000 U/250 mL 25, 250 / 250 000 unit In 250 ml @ Per Protocol IV.CONT TITRATE PRN Rx #:[id number] Primacor Inj 20 MG In NS Inj 80 100 / 100 50 / 50 ML @ Per Protocol IV.CONT .Q0M [facility] Rx#:[id number] Zyvox 600 mg Premix 300 ML @ 600 / 600 300 mls/hr IV.SIG Q12H [facility] Rx#: [id number] Zosyn 2.25 GM Premix 50 ML @ 50 / 50 150 / 150 50 / 50 100 mls/hr IV.SIG Q6H [facility] Rx#: [id number] fentaNYL 10 mcg/mL Premix Drip 250 / 250 2,500 mcg In 250 ml @ 50 MCG/HR 5 mls/hr IV.SIG TITRATE PRN Rx #:[id number] Output: Hemodialysis Amount 4000 / 4000 Urine Amount (Catheter) 125 / 125 Indwelling Urethral Catheter 125 / 125 Other: # Voids 2 Date of Last Bowel Movement 09/15/18 09/15/18 09/15/18 # Incontinent Bowel Movements 4 0 - Constitutional no acute distress - Routine HEENT Exam Head: Present: normocephalic Eye: Present: PERRL ENT: Present: mucous membranes moist - Routine Neck Exam Present: full ROM - Routine Respiratory Exam Present: rhonchi Comments: rhonchi throughout - Routine Cardiovascular Exam Present: S1, S2. Absent: murmur, gallop, rubs - Routine Abdominal Exam Present: normoactive bowel sounds - Routine Extremities Exam Present: edema, pulses intact, normal capillary refill. Absent: cyanosis, clubbing - Routine Skin Exam Present: intact - Detailed Neurological Exam: Coma Scale Eye Opening: Spontaneous Verbal Response: Oriented Motor Response: Obey commands Jordyn Coma Scale Total: 15 - Routine Psychiatric Exam Present: unable to assess - Urinary Catheter Management Indwelling Urethral Catheter Cath placed during this visit: yes, but has since been removed by the nurse Reason for continuing: Hourly intake/output Insertion date: 09/08/18 Insertion time: 22:52 Removal date: 09/17/18 Removal time: 09:10 Results 09/18/18 05:07 09/18/18 05:07 Cardiac Enzymes 09/17/18 09/17/18 09/18/18 Range/Units 06:09 08:35 05:07 AST 22 22 23 (15-37) U/L Coagulation 09/16/18 09/17/18 09/17/18 Range/Units 21:45 06:09 20:40 APTT 35.7 H 39.9 H 40.9 H (23.4-31.7) sec 09/18/18 Range/Units 05:07 APTT 44.1 H (23.4-31.7) sec CBC 09/17/18 09/17/18 09/18/18 Range/Units 06:09 09:00 05:07 WBC 13.5 H 12.4 H 16.3 H (4.0-11.0) th/mm3 RBC 4.35 4.09 4.68 (4.00-5.30) mil/mm3 Hgb 11.3 L 10.7 L 12.2 (11.6-15.3) gm/dL Hct 35.8 33.6 L 38.0 (35.0-46.0) % Plt Count 417 388 470 H (150-450) th/mm3 Neut # (Auto) 9.9 H (1.8-7.7) th/mm3 Lymph # (Auto) 3.1 (1.0-4.8) th/mm3 Mcpherson # (Auto) 2.2 H (0.0-0.9) th/mm3 Eos # (Auto) 1.0 H (0.0-0.4) th/mm3 Baso # (Auto) 0.1 (0.0-0.2) th/mm3 Comprehensive Metabolic Panel 09/17/18 09/17/18 09/18/18 Range/Units 06:09 08:35 05:07 Sodium 137 133 L 131 L (136-145) meq/L Potassium 3.6 3.5 3.5 (3.5-5.1) meq/L Chloride 94 L 92 L 90 L (98-107) meq/L Carbon Dioxide 27.6 25.5 24.5 (21.0-32.0) meq/L BUN 37 H 37 H 39 H (7-18) mg/dL Creatinine 6.06 H 6.32 H 6.55 H (0.50-1.00) mg/dL Calcium 9.9 10.1 10.7 H (8.5-10.1) mg/dL AST 22 22 23 (15-37) U/L ALT 26 27 29 (10-53) U/L Alkaline Phosphatase 93 92 98 (45-117) U/L Total Protein 9.8 H D 9.5 H 10.6 H D (6.4-8.2) g/dL Albumin 3.4 3.3 L 3.9 D (3.4-5.0) g/dL Intake and Output 09/17/18 09/18/18 09/18/18 22:59 06:59 14:59 Intake Total 1150 / 1150 150 / 150 50 / 50 Output Total 125 / 125 Balance 1025 / 1025 150 / 150 50 / 50 Intake: IV 1150 / 1150 150 / 150 50 / 50 Heparin/D5W 25,000 U/250 mL 25, 250 / 250 000 unit In 250 ml @ Per Protocol IV.CONT TITRATE PRN Rx #:[id number] Primacor Inj 20 MG In NS Inj 80 50 / 50 ML @ Per Protocol IV.CONT .Q0M [facility] Rx#:[id number] Zyvox 600 mg Premix 300 ML @ 600 / 600 300 mls/hr IV.SIG Q12H [facility] Rx#: [id number] Zosyn 2.25 GM Premix 50 ML @ 50 / 50 100 / 100 50 / 50 100 mls/hr IV.SIG Q6H [facility] Rx#: [id number] fentaNYL 10 mcg/mL Premix Drip 250 / 250 2,500 mcg In 250 ml @ 50 MCG/HR 5 mls/hr IV.SIG TITRATE PRN Rx #:[id number] Output: Urine Amount (Catheter) 125 / 125 Indwelling Urethral Catheter 125 / 125 Other: # Voids 2 Date of Last Bowel Movement 09/15/18 09/15/18 09/15/18 # Incontinent Bowel Movements 4 0 Weight 140.8 kg - Imaging and Cardiology Imaging: Impressions Chest X-Ray 09/17/18 06:00 CONCLUSION: Increasing prominence and indistinctness of the central bronchopulmonary markings. Persistent left lower lobe consolidation. Chest X-Ray 09/18/18 00:00 CONCLUSION: Dialysis catheter in good position. Moderate interstitial edema with fluid overload, with some improvement in the interval. Assessment and Plan - Assessment (1) Acute kidney failure Code(s): N17.9 - Acute kidney failure, unspecified Status: Acute (2) Respiratory failure Code(s): J96.90 - Respiratory failure, unspecified, unspecified whether with hypoxia or hypercapnia Status: Acute (3) Obesity Code(s): E66.9 - Obesity, unspecified Status: Acute - Plan There are no new cardiac issues at this time. We will continue with current cardiac treatment plan and adjust as needed. The patient is currently on NC, keep sats >92. Patient remains on Milrinone for CHF treatment, wean as patient tolerates.. We will continue to monitor the patient during her hospitalization. The patient was seen and evaluated by Dr. Law who participated in care, management and decision making. - Attending Attestation Patient seen and examined. I reviewed and agree with the evaluation and plan as presented. Continue ICU care. Wean milrinone as tolerated.
[2018-09-18] MEDS: Acetaminophen 325 MG Tablet PO PRN ×2 (13:53→19:39)
[2018-09-18] MEDS: Heparin Drip 25,000 UNIT/250 ML BAG IV.CONT PRN (15:37)
[2018-09-19] MEDS: Insulin NovoLIN Regular Correctional Sugar Inj SQ SCH ×7 (01:29→23:52)
[2018-09-19] MEDS: Oral Hygiene Kit OROPHARYNG SCH ×5 (01:29→23:52)
[2018-09-19] MEDS: Piperacil/Tazo 2.25 GM Premix 50 ML IV.SIG SCH ×4 (04:22→21:32)
--- NOTE | 2018-09-19 05:15 | XR ---
EXAM DATE: 09/19/2018 4:59 AM EST AGE/SEX: 47 years / Female INDICATIONS: Shortness of breath. CLINICAL DATA: This is the patient's initial encounter. Patient reports that signs and symptoms have been present for 1 week and indicates a pain score of 0/10. MEDICAL/SURGICAL HISTORY: Congestive heart failure. None. COMPARISON: C, CHEST 1V SINGLE AP, 09/18/2018. . FINDINGS: Dialysis catheter tip projects in the right atrium. There is persistent bilateral vascular engorgemen t and confluent airspace opacities in the mid and lower lungs, similar in severity when compared to p rior. Both hemidiaphragms well delineated. Stable cardiomegaly. CONCLUSION: Stable cardiomegaly and central airspace opacities. Electronically signed by: Ankur Carr MD Board Certified Radiologist 09/19/2018 5:13 AM EST
--- NOTE | 2018-09-19 06:41 | P.PNCC ---
Subjective Subjective Remarks/Hospital Course: Middle-aged morbidly obese female was brought in emergently department by EMS due to respiratory failure and unresponsiveness. She was brought in being bagged by BV. Patient was a GCS of 3 upon arrival and hence in no condition to give any history. As per EMS the call went out as shortness of breath while patient got into the car. When they arrived she was in severe respiratory distress. They put her on BiPAP but shortly patient started to lose consciousness with agonal respirations. Family was at the scene and informed EMS that she has history of congestive heart failure. Patient was tachycardic upon arrival with heart rate in 170s. It appeared to be irregularly irregular on the monitor. She was immediately intubated by ED attending with improvement in her heart rate. There is no additional history available. Per report, the family admits the patient has been taking a lot of medications but they are unaware of the names or reasons. 09/10 Patient remains sedated with Diprivan and intubated. Renal function is worsening with Cr: 4.02 from 2.60. Afebrile. On Heparin drip. 09/11: Patient remains intubated sedated critically ill. Urine output has improved with Bumex infusion however creatinine has worsened from 4-5.5 today. D/W with nephrology-no acute indication for dialysis however considering creatinine worsening, will reduce Bumex infusion 0.5 mg/h. Chest x-ray is pending at this time 09/12: Remains intubated sedated with propofol however wakes up and follows commands. Creatinine worsening 6.5 today. Even though her urine output has improved on Bumex infusion 3 L in 24 hours, patient has increasing pulmonary vascular congestion and pulmonary edema. Discussed with nephrology. Will place hemodialysis catheter and start dialysis today for fluid removal. 09/13: Remains intubated sedated with propofol, started on hemodialysis yesterday achieving negative balance. However pulmonary edema persistent. Wakes up to command weakly follows. Creatinine slightly improved with dialysis. Urine output 1.8 L in 24 hours 09/14: Patient sedated on fentanyl and propofol infusions. Cardiac index now 2.8, the patient continues on milrinone. Chest x-ray reveals pulmonary edema, patient was dialyzed 4 L removed yesterday and urine output 1150 in the last 24 hours. 09/15: Remains lightly sedated on low-dose propofol and fentanyl. Wakes up easily follows commands. Currently on milrinone 0.2 mcg/kg/min. Reduce to 0.15 mcg/kg/min due to mild hypotension. Start CPAP trials. Urine output 700 mL. Discussed with nephrology dialyzed today. Chest x-ray remains essentially unchanged on my review with some persistent pulmonary edema but overall improving 09/16: Patient continues to achieve negative balance with hemodialysis. 4 L removed yesterday, dialysis again today. Plan for CPAP trial after hemodialysis. Lightly sedated with propofol and fentanyl. Continue milrinone at 0.15 mcg/kg/min. Cardiac index 2.2 09/17: Patient was extubated yesterday maintaining oxygen saturation on Ventimask. Chest x-ray shows worsening pulmonary edema. Patient is almost anuric now. I have discussed with Dr. Majano regarding hemodialysis sooner today. He is agreeable. Continues to be on milrinone at the lowest dose. Cardiac index maintained at 2.2. Will attempt to get a limited echo as the patient is extubated to evaluate ejection fraction 09/18: No acute events reported overnight, remains on Ventimask maintaining saturation above 90%. Occasionally lethargic but follows commands. Remains on milrinone will start weaning today. Hemodialysis yesterday with 4 L removed. Urine output only 125 mL in 24 hours. Repeat limited echo after extubation also very limited windows 09/19: Weaned off Milrinone 09/18/18. Remains relatively stable maintains oxygen saturation above 94% on 4 L nasal cannula. Chest x-ray shows persistent perihilar predominantly infiltrates probably from pulmonary edema. Due for hemodialysis today. Remains oliguric to anuric Objective Vital Signs / I&O: Vital Signs 09/18/18 07:00 09/18/18 08:00 09/18/18 10:00 Temperature 98.6 F Pulse Rate 105 H 105 H 109 H Respiratory Rate 18 18 Blood Pressure 128/62 Pulse Oximetry 94 L 09/18/18 11:10 09/18/18 12:00 09/18/18 14:00 Temperature 98.6 F Pulse Rate 104 H 109 H 107 H Respiratory Rate 18 18 Blood Pressure 141/67 H Pulse Oximetry 94 L 09/18/18 14:10 09/18/18 16:00 09/18/18 18:00 Temperature 98.1 F Pulse Rate 106 H 107 H 108 H Respiratory Rate 18 18 Blood Pressure 139/66 Pulse Oximetry 96 09/18/18 20:00 09/18/18 22:00 09/19/18 00:00 Temperature 98.4 F 98.7 F Pulse Rate 106 H 102 H 106 H Respiratory Rate 18 18 Blood Pressure 133/65 147/73 H Pulse Oximetry 96 98 09/19/18 02:00 09/19/18 04:00 09/19/18 06:00 Temperature 98.7 F Pulse Rate 101 H 97 H 101 H Respiratory Rate 18 Blood Pressure 146/70 H Pulse Oximetry 97 Intake & Output 09/18/18 09/18/18 09/19/18 06:59 18:59 06:59 Intake Total 1300 / 1300 700 / 700 550 / 550 Output Total 0 / 0 Balance 1300 / 1300 700 / 700 550 / 550 Weight 140.8 kg 141.8 kg Intake: IV 1300 / 1300 650 / 650 350 / 350 Heparin/D5W 25,000 U/250 mL 25, 250 / 250 250 / 250 000 unit In 250 ml @ Per Protocol IV.CONT TITRATE PRN Rx #:[id number] Primacor Inj 20 MG In NS Inj 80 50 / 50 ML @ Per Protocol IV.CONT .Q0M [facility] Rx#:[id number] Zyvox 600 mg Premix 300 ML @ 600 / 600 300 / 300 300 / 300 300 mls/hr IV.SIG Q12H [facility] Rx#: [id number] Zosyn 2.25 GM Premix 50 ML @ 150 / 150 100 / 100 50 / 50 100 mls/hr IV.SIG Q6H [facility] Rx#: [id number] fentaNYL 10 mcg/mL Premix Drip 250 / 250 2,500 mcg In 250 ml @ 50 MCG/HR 5 mls/hr IV.SIG TITRATE PRN Rx #:[id number] Oral 50 / 50 200 / 200 Output: Urine 0 / 0 Other: # Voids 0 Date of Last Bowel Movement 09/15/18 09/15/18 09/18/18 # Bowel Movements 1 # Incontinent Bowel Movements 0 0 Result Diagrams: 09/18/18 05:07 09/18/18 05:07 Objective Remarks: GENERAL: Patient is 47 yo morbidly obese -[place] female, maintaining oxygen saturation above 92% on NC SKIN: Warm and dry. HEAD: Normocephalic. No scleral icterus. No injection or drainage. NECK: Supple, trachea midline. Unable to appreciate JVD due to body habitus CARDIOVASCULAR: Regular rate and rhythm without murmurs, gallops, or rubs. On IV heparin. RESPIRATORY: Breath sounds equal bilaterally. Air entry diminished at the bases. Bilateral coarse rhonchi GASTROINTESTINAL: Abdomen soft, obese ,non-tender, nondistended. MUSCULOSKELETAL: No cyanosis, + edema. Neuro: Alert awake, wakes up easily able to talk, oriented. Moves extremities purposefully. Follows commands x4 Assessment and Plan - Assessment and Plan Plan: ASSESSMENT: Acute hypoxemic respiratory failure-slowly improving Acute systolic heart failure/Pulmonary edema Probable pneumonia Sepsis Acute kidney failure, anuric Acute pulmonary embolism Paroxysmal atrial fibrillation Obesity hypoventilation syndrome Mild elevated trop Leukocytosis Elevated AST Morbid obesity PLAN: Neuro: Off all continuous sedation. Neuro exam normal, improving. PT OOB to chair CT brain: No acute intracranial findings Pulm: Extubated 09/16/2018, maintaining airway, maintaining oxygen saturation about 93% on NC 4L Bronchodilators, CTA chest: Very limited examination due to patient body habitus. Elongated filling defect in the right pulmonary artery suspicious for PE. Moderate-sized area consolidation of right lower lobe. Bilateral dependent lower lobe atelectasis. CXR -pulm edema Continue Heparin drip. Monitor PTT per protocol. Transition to Coumadin in 24 hours Broad-spectrum antibiotics with Zosyn, Zyvox\ Continue scheduled and as needed breathing treatments. EzPAP, Acapella CV: Started on milrinone 09/13/2018 to maintain cardiac index more than 2.2. Discontinued 09/18/2018 Echo 09/09: Technically difficult study making assessment of left ventricular function and wall motion. Suboptimal. Grossly, left ventricular function appears severely reduced. probable global hypokinesis. Repeat limited echo 09/17/2018, very poor windows difficult to interpret Cardiology Dr. Law following. Continue fluid removal with hemodialysis : Monitor renal function, I/O's, avoid nephrotoxins. Fluid removal with hemodialysis started 09/12/[address] Majano. Patient remains anuric, scheduled hemodialysis today US abdomen: No masses or hydronephrosis, enlarged liver likely due to fatty infiltration. GI: On Pepcid for GI prophylaxis, advance diet as tolerated. Speech and swallow eval ID: Continue abx (continue Zosyn, discontinued vancomycin 09/11/2018) monitor for signs of infections ( fever, WBC) Started Zyvox due to increase in WBC count Strep pneumonia and Legionella urinary Ag negative 09/09 Blood, sputum and urine cx: All negative to date Labs are pending today Heme: Monitor CBC, coags- on Heparin drip. Endo: SSI with accuchecks for glycemic control DVT GI prophylaxis -SCDs -Heparin drip -Pepcid Level 3 Patient continues to be critically ill, her respiratory status was improved and she was able to be extubated 09/16. However renal failure and anuria persist along with systolic heart failure and pulmonary edema. She is at risk of acute decompensation and requiring mechanical ventilation.
[2018-09-19 07:21] LABS: Hematocrit 42.4 % (35.0-46.0); Hemoglobin 13.5 gm/dL (11.6-15.3); Mean Corpuscular Hemoglobin 26.1 pg (27.0-34.0); Mean Corpuscular Volume 81.7 fL (80.0-100.0); Mean Platelet Volume 7.6 fL (7.0-11.0); Platelet Count 485 th/mm3 (150-450); Red Blood Count 5.18 mil/mm3 (4.00-5.30); Red Cell Distribution Width 17.4 % (11.6-17.2); White Blood Count 12.8 th/mm3 (4.0-11.0)
[2018-09-19 07:49] LABS: Alanine Aminotransferase 26 U/L (10-53); Alkaline Phosphatase 104 U/L (45-117); Anion Gap 18 meq/L (5-15); Aspartate Aminotransferase 21 U/L (15-37); Blood Urea Nitrogen 57 mg/dL (7-18); Calcium 10.3 mg/dL (8.5-10.1); Carbon Dioxide 22.8 meq/L (21.0-32.0); Chloride 86 meq/L (98-107); Glomerular Filtration Rate 5 mL/min (>89); Glucose,Random 120 mg/dL (74-106); Potassium 3.5 meq/L (3.5-5.1); Sodium 127 meq/L (136-145); Total Protein 11.3 g/dL (6.4-8.2)
[2018-09-19] MEDS: Chlorhexidine 0.12% Oral Kit 15 ML UDC OROPHARYNG SCH ×2 (09:40→21:31)
[2018-09-19] MEDS: Heparin Drip 25,000 UNIT/250 ML BAG IV.CONT PRN (09:52)
[2018-09-19] MEDS: Senna/Docusate Sodium 8.6/50 MG Tablet PO SCH ×2 (09:54→21:32)
[2018-09-19] MEDS: Famotidine PF Inj 20 MG/2 ML Vial IV.PUSH SCH ×2 (09:55→21:31)
--- NOTE | 2018-09-19 10:07 | P.DIET ---
Nutritional Evaluation Type of nutrition evaluation: follow-up Nutrition consult regarding: Tube Feeding Screening comments: 09/11 TF review Objective - Diagnosis respiratory failure, artrial flutter - Objective % IBW: 259 (IBW = 120lb) Body Weight Used for Calculations: IBW Energy Needs - Lower Range (kCal/kg): 28 Energy Needs - Upper Range (kCal/kg): 32 Lower Limit kCal/kg (kCals): 1,527 Upper Limit kCal/kg (kCals): 1,745 Lower Limit Protein Factor (Grams per Kg): 1.2 Upper Limit Protein Factor (Grams per Kg): 1.5 Lower Protein Needs (Protein): 65 Upper Protein Needs (Protein): 82 Dietitian Reviewed in Medical Record: Current diet, Curent medications, Intake & Output, Labs, Medical history Diet Order: 1800ADA Oral Diet Intake Amount: Poor <50% Speech Therapy Recommendations: Yes (mech soft) Objective Comments: PMH: CHF, depression, DM, MRSA, HLD, HTN, peripheral neuropathy Labs: BUN 57, Cr 8.72, estGFR 5, POC glucose 151 123 126 LBM 09/18 Assessment Assessment: Pt extubated on 09/16, now on nasal canula. Pt will be receiving HD today. ST notes reviewed, pt able to tolerate mech soft, thin liquid diet. Pts TF d/flori on 09/18, pt now consuming a 1800 ADA diet and ate around 25% for dinner yesterday (09/18). RD to recommend Glucerna TID as PO supplement for additional nutrition. Wt changes noted, CBW = 141.8kg (-31kg since admission). Pts energy needs and protein needs changed to reflect current clinical status. Continue to monitor PO tolerance and intake. Labs reviewed, dietitian following. Recommendations: 1. ST notes reviewed, pt able to tolerate mech soft, thin liquid diet 2. RD to recommend Glucerna TID as PO supplement for additional nutrition 3. Continue to monitor PO tolerance and intake 4. Dietitian following Dietitian to Monitor: Lab values, Renal labs, Glucose level, Intake & Output, Diet tolerance, Weight change, PO Intake, Swallow recommendations, Medical course
--- NOTE | 2018-09-19 14:13 | P.PNCA ---
Subjective Interval history: NO CP or SOB, dialysis in progress, weaned off milrinone Medications and Allergies Active Medications: Active Medications Acetaminophen (Tylenol) 650 mg PO Q6H PRN PRN Reason: PAIN 1-5 AND/OR FEVER >101F Last Admin: 09/18/18 19:39 Dose: 650 mg Acetaminophen (Tylenol) 650 mg PO UNSCH PRN PRN Reason: SEE LABEL COMMENTS Hydrocodone Bitart/Acetaminophen ([place] 7.5/325) 1 tab PO Q6H PRN PRN Reason: PAIN 6-10;IF ABLE TO TAKE PO Last Admin: 09/19/18 09:54 Dose: 1 tab Al Hydroxide/Mg Hydroxide (Milk Of [place] Eugenia Liq) 30 ml PO Q12H PRN PRN Reason: Mild Constipation Albuterol (Duoneb Neb (Prn)) 1 ampul NEB Q2HR NEB PRN PRN Reason: WHEEZING Last Admin: 09/14/18 10:45 Dose: 1 ampul Albuterol (Duoneb Neb ([place])) 1 ampul NEB Q6HR NEB [facility] Last Admin: 09/19/18 08:13 Dose: 1 ampul Bisacodyl (Dulcolax Supp) 10 mg RECTAL DAILY PRN PRN Reason: SEVERE CONSITIPATION Chlorhexidine Gluconate (Peridex 0.12% Oral Kit) 15 ml OROPHARYNG BID@0800, 2000 [facility] Last Admin: 09/19/18 09:40 Dose: Not Given Clonidine HCl (Catapres) 0.1 mg PO UNSCH PRN PRN Reason: SEE LABEL COMMENTS Cyclobenzaprine HCl (Flexeril) 10 mg PO Q8H PRN PRN Reason: SPASM Last Admin: 09/14/18 18:14 Dose: 10 mg Dextrose (D50w Vial) 50 ml IV.PUSH UNSCH PRN PRN Reason: PER HYPOGLYCEMIA PROTOCOL Diphenhydramine HCl (Benadryl) 25 mg PO UNSCH PRN PRN Reason: SEE LABEL COMMENTS Famotidine (Pepcid Pf Inj) 10 mg IV.PUSH Q12HR [facility] Last Admin: 09/19/18 09:55 Dose: 10 mg Gelatin (Gelfoam 12 Mm/7 Mm Topical) 1 foam TOPICAL PRN PRN PRN Reason: help stop bleeding from site Gentamicin Sulfate (Gentamicin Inj) 20 mg OTHER WITH DIALYSIS PRN PRN Reason: Dwell Gentamycin Lock Last Admin: 09/17/18 11:55 Dose: 20 mg Glucagon (Glucagon Inj) 1 mg OTHER PRN PRN PRN Reason: for Hypoglycemia Protocol Heparin Sodium (Porcine) (Heparin Inj) 8,000 units OTHER WITH DIALYSIS PRN PRN Reason: for machine prime Last Admin: 09/16/18 22:55 Dose: 2,500 units Heparin Sodium (Porcine) (Heparin Inj) 1,000 units OTHER WITH DIALYSIS PRN PRN Reason: Dwell Heparin to Fill Catheter Last Admin: 09/17/18 11:55 Dose: 1,000 units Heparin Sodium/Dextrose (Heparin/D5w 25,000 U/250 Ml) 25,000 unit in 250 mls @ 0 mls/hr IV.CONT TITRATE PRN; Protocol PRN Reason: Per Protocol Last Admin: 09/19/18 09:52 Dose: 1,600 units/hr, 16 mls/hr Piperacillin/Tazobactam/Dextrose (Zosyn 2.25 Gm Premix) 50 mls @ 100 mls/hr IV.SIG Q6H [facility] Last Infusion: 09/19/18 11:20 Dose: Infused Albumin Human (Flexbumin 25% Inj) 100 mls @ 60 mls/hr IV.SIG WITH DIALYSIS PRN PRN Reason: hypotension / volume replace Last Infusion: 09/13/18 16:50 Dose: Infused Sodium Chloride (Ns Inj) 1,000 mls @ 0 mls/hr OTHER .Q0M PRN PRN Reason: for prime and rinse back Sodium Chloride (Ns Inj) 1,000 mls @ 200 mls/hr OTHER .Q5H PRN PRN Reason: for dialyzer flush PRN Sodium Chloride (Ns Inj) 1,000 mls @ 0 mls/hr IV.CONT .Q0M PRN PRN Reason: hypotension / volume replace Linezolid (Zyvox 600 Mg Premix) 300 mls @ 300 mls/hr IV.SIG Q12H [facility] Last Infusion: 09/19/18 11:20 Dose: Infused Milrinone Lactate 20 mg/ (Sodium Chloride) 100 mls @ 0 mls/hr IV.CONT .Q0M [facility] ; Protocol Insulin Human Regular (Novolin R [place] Sugar Inj) 0 units SQ Q4HR [facility]; Protocol Last Admin: 09/19/18 09:40 Dose: Not Given Lactulose (Lactulose Liq) 30 ml PO DAILY PRN PRN Reason: SEVERE CONSITIPATION Lactulose (Lactulose Liq) 30 ml PO BID [facility] Last Admin: 09/19/18 09:56 Dose: Not Given Mannitol (Mannitol Inj) 12.5 gm IV.PUSH UNSCH PRN PRN Reason: hypotension / volume replace Miscellaneous Medication () 1 each OROPHARYNG 0000,0400,1200,1600 [facility] Last Admin: 09/19/18 04:21 Dose: Not Given Morphine Sulfate (Morphine Inj) 2 mg IV.PUSH Q2H PRN PRN Reason: PAIN SCALE 6 TO 10 Last Admin: 09/18/18 00:29 Dose: 2 mg Nitroglycerin (Nitrostat Sl) 0.4 mg SL Q5M PRN PRN Reason: CHEST PAIN Ondansetron HCl (Zofran Inj) 4 mg IV.PUSH Q6H PRN PRN Reason: NAUSEA OR VOMITING Senna/Docusate Sodium (Nereida-Colace) 1 tab PO BID [facility] Last Admin: 09/19/18 09:54 Dose: Not Given Sennosides (Senokot) 17.2 mg PO Q12H PRN PRN Reason: Moderate Constipation Sevelamer Carbonate (Renvela) 800 mg PO TIDAC [facility] Last Admin: 09/19/18 09:54 Dose: 800 mg Sodium Chloride (Ns Flush) 2 ml IV.FLUSH BID [facility] Last Admin: 09/19/18 09:56 Dose: 2 ml Sodium Chloride (Ns Flush) 2 ml IV.FLUSH PRN PRN PRN Reason: FLUSH AFTER USING IV ACCESS Sodium Chloride (Ns Flush) 5 ml IV.FLUSH PRN PRN PRN Reason: flush each lumen during HD Allergies Allergy/AdvReac Type Severity Reaction Status Date / Time Penicillins Allergy Hives Verified 09/18/18 00:28 lisinopril AdvReac Severe Anaphylaxis Verified 09/18/18 00:28 Home Medications Medication Instructions Recorded Confirmed Type allopurinol 100 mg PO DAILY 09/11/18 09/11/18 History cyclobenzaprine 5 mg PO TID 09/11/18 09/11/18 History furosemide 40 mg PO DAILY 09/11/18 09/11/18 History hydralazine 50 mg PO Q8HR 09/11/18 09/11/18 History insulin detemir U-100 [Levemir 24 unit SUBCUT Q12HR 09/11/18 09/11/18 History U-100 Insulin] insulin regular human [Novolin R 1 sliding scale dose SUBCUT UD 09/11/18 History Regular U-100 Insuln] levothyroxine 50 mcg PO DAILY 09/11/18 09/11/18 History meloxicam DAILY 09/11/18 History potassium chloride 20 meq PO DAILY 09/11/18 09/11/18 History pravastatin 40 mg PO HS 09/11/18 09/11/18 History pregabalin [Lyrica] 50 mg PO BID 09/11/18 09/11/18 History sertraline 50 mg PO HS 09/11/18 09/11/18 History tramadol 50 mg PO Q6H PRN 09/11/18 09/11/18 History Physical Exam Vital signs: Vital Signs 09/18/18 14:10 09/18/18 16:00 09/18/18 18:00 Temperature 98.1 F Pulse Rate 106 H 107 H 108 H Respiratory Rate 18 18 Blood Pressure 139/66 Pulse Oximetry 96 09/18/18 20:00 09/18/18 22:00 09/19/18 00:00 Temperature 98.4 F 98.7 F Pulse Rate 106 H 102 H 106 H Respiratory Rate 18 18 Blood Pressure 133/65 147/73 H Pulse Oximetry 96 98 09/19/18 02:00 09/19/18 04:00 09/19/18 06:00 Temperature 98.7 F Pulse Rate 101 H 97 H 101 H Respiratory Rate 18 Blood Pressure 146/70 H Pulse Oximetry 97 09/19/18 08:00 09/19/18 08:11 09/19/18 10:00 Temperature 98.4 F Pulse Rate 97 H 97 H 97 H Respiratory Rate 19 20 Blood Pressure 142/89 H Pulse Oximetry 96 09/19/18 12:00 Temperature Pulse Rate 101 H Respiratory Rate Blood Pressure Pulse Oximetry Intake & Output 09/18/18 09/19/18 09/19/18 18:59 06:59 18:59 Intake Total 700 / 700 600 / 600 600 / 600 Output Total 0 / 0 Balance 700 / 700 600 / 600 600 / 600 Weight 312 lb 9.848 oz Intake: IV 650 / 650 400 / 400 600 / 600 Heparin/D5W 25,000 U/250 mL 25, 250 / 250 250 / 250 000 unit In 250 ml @ Per Protocol IV.CONT TITRATE PRN Rx #:[id number] Zyvox 600 mg Premix 300 ML @ 300 / 300 300 / 300 300 / 300 300 mls/hr IV.SIG Q12H [facility] Rx#: [id number] Zosyn 2.25 GM Premix 50 ML @ 100 / 100 100 / 100 50 / 50 100 mls/hr IV.SIG Q6H [facility] Rx#: [id number] Oral 50 / 50 200 / 200 Output: Urine 0 / 0 Other: # Voids 0 Date of Last Bowel Movement 09/15/18 09/18/18 09/19/18 # Bowel Movements 1 # Incontinent Bowel Movements 0 Narrative: GENERAL: In no acute distress, morbidly obese. SKIN: Warm and dry. HEAD: Normocephalic. NECK: Supple, trachea midline. CARDIOVASCULAR: Regular rate and rhythm. RESPIRATORY: Clear bilat. GASTROINTESTINAL: Abdomen soft, obese ,non-tender. MUSCULOSKELETAL: 2+ edema. - Urinary Catheter Management Indwelling Urethral Catheter Cath placed during this visit: yes, but has since been removed by the nurse Reason for continuing: Hourly intake/output Insertion date: 09/08/18 Insertion time: 22:52 Removal date: 09/17/18 Removal time: 09:10 Results 09/19/18 06:59 09/19/18 06:59 Cardiac Enzymes 09/18/18 09/19/18 Range/Units 05:07 06:59 AST 23 21 (15-37) U/L Coagulation 09/17/18 09/18/18 Range/Units 20:40 05:07 APTT 40.9 H 44.1 H (23.4-31.7) sec CBC 09/18/18 09/19/18 Range/Units 05:07 06:59 WBC 16.3 H 12.8 H (4.0-11.0) th/mm3 RBC 4.68 5.18 (4.00-5.30) mil/mm3 Hgb 12.2 13.5 (11.6-15.3) gm/dL Hct 38.0 42.4 (35.0-46.0) % Plt Count 470 H 485 H (150-450) th/mm3 Neut # (Auto) 9.9 H (1.8-7.7) th/mm3 Lymph # (Auto) 3.1 (1.0-4.8) th/mm3 [place] # (Auto) 2.2 H (0.0-0.9) th/mm3 Eos # (Auto) 1.0 H (0.0-0.4) th/mm3 Baso # (Auto) 0.1 (0.0-0.2) th/mm3 Comprehensive Metabolic Panel 09/18/18 09/19/18 Range/Units 05:07 06:59 Sodium 131 L 127 L (136-145) meq/L Potassium 3.5 3.5 (3.5-5.1) meq/L Chloride 90 L 86 L (98-107) meq/L Carbon Dioxide 24.5 22.8 (21.0-32.0) meq/L BUN 39 H 57 H (7-18) mg/dL Creatinine 6.55 H 8.72 H (0.50-1.00) mg/dL Calcium 10.7 H 10.3 H (8.5-10.1) mg/dL AST 23 21 (15-37) U/L ALT 29 26 (10-53) U/L Alkaline Phosphatase 98 104 (45-117) U/L Total Protein 10.6 H D 11.3 H D (6.4-8.2) g/dL Albumin 3.9 D 4.0 (3.4-5.0) g/dL Intake and Output 09/18/18 09/19/18 09/19/18 22:59 06:59 14:59 Intake Total 100 / 100 600 / 600 600 / 600 Output Total 0 / 0 Balance 100 / 100 600 / 600 600 / 600 Intake: IV 50 / 50 400 / 400 600 / 600 Heparin/D5W 25,000 U/250 mL 25, 250 / 250 000 unit In 250 ml @ Per Protocol IV.CONT TITRATE PRN Rx #:[id number] Zyvox 600 mg Premix 300 ML @ 300 / 300 300 / 300 300 mls/hr IV.SIG Q12H [facility] Rx#: [id number] Zosyn 2.25 GM Premix 50 ML @ 50 / 50 100 / 100 50 / 50 100 mls/hr IV.SIG Q6H [facility] Rx#: [id number] Oral 50 / 50 200 / 200 Output: Urine 0 / 0 Other: # Voids 0 Date of Last Bowel Movement 09/15/18 09/18/18 09/19/18 # Bowel Movements 1 # Incontinent Bowel Movements 0 Weight 312 lb 9.848 oz - Imaging and Cardiology Imaging: Impressions Chest X-Ray 09/18/18 00:00 CONCLUSION: Dialysis catheter in good position. Moderate interstitial edema with fluid overload, with some improvement in the interval. Chest X-Ray 09/19/18 06:00 CONCLUSION: Stable cardiomegaly and central airspace opacities. Assessment and Plan - Assessment (1) CHF (congestive heart failure) Code(s): I50.9 - Heart failure, unspecified Status: Acute (2) Cardiomyopathy Code(s): I42.9 - Cardiomyopathy, unspecified Status: Acute (3) Acute kidney failure Code(s): N17.9 - Acute kidney failure, unspecified Status: Acute (4) Respiratory failure Code(s): J96.90 - Respiratory failure, unspecified, unspecified whether with hypoxia or hypercapnia Status: Acute (5) Obesity Code(s): E66.9 - Obesity, unspecified Status: Acute - Plan Successfully weaned off milrinone. Continue with current cardiac treatment plan and adjust as needed. In dialysis, continue removing fluid. Overall prognosis still guarded. We will continue to monitor the patient during her hospitalization. (5) Obesity Qualifiers: Obesity classification: adult class 3 (BMI >= 40)
--- NOTE | 2018-09-19 14:41 | P.PNNP ---
Subjective Interval history: Patient was seen, no distress, denied SOB and chest pain. Patient was on dialysis - 300 ml/min, UF goal of 3 L. Renal function has declined, patient has become anuric. <Venkatesh Bernal - Last Filed: 09/19/18 14:41> Physical Exam Vital signs: Vital Signs 09/18/18 16:00 09/18/18 18:00 09/18/18 20:00 Temperature 98.1 F 98.4 F Pulse Rate 107 H 108 H 106 H Respiratory Rate 18 18 Blood Pressure 139/66 133/65 Pulse Oximetry 96 96 09/18/18 22:00 09/19/18 00:00 09/19/18 02:00 Temperature 98.7 F Pulse Rate 102 H 106 H 101 H Respiratory Rate 18 Blood Pressure 147/73 H Pulse Oximetry 98 09/19/18 04:00 09/19/18 06:00 09/19/18 08:00 Temperature 98.7 F 98.4 F Pulse Rate 97 H 101 H 97 H Respiratory Rate 18 19 Blood Pressure 146/70 H 142/89 H Pulse Oximetry 97 96 09/19/18 08:11 09/19/18 10:00 09/19/18 12:00 Temperature Pulse Rate 97 H 97 H 101 H Respiratory Rate 20 Blood Pressure Pulse Oximetry Intake & Output 09/18/18 09/19/18 09/19/18 18:59 06:59 18:59 Intake Total 700 / 700 600 / 600 600 / 600 Output Total 0 / 0 Balance 700 / 700 600 / 600 600 / 600 Weight 141.8 kg Intake: IV 650 / 650 400 / 400 600 / 600 Heparin/D5W 25,000 U/250 mL 25, 250 / 250 250 / 250 000 unit In 250 ml @ Per Protocol IV.CONT TITRATE PRN Rx #:[id number] Zyvox 600 mg Premix 300 ML @ 300 / 300 300 / 300 300 / 300 300 mls/hr IV.SIG Q12H [facility] Rx#: [id number] Zosyn 2.25 GM Premix 50 ML @ 100 / 100 100 / 100 50 / 50 100 mls/hr IV.SIG Q6H [facility] Rx#: [id number] Oral 50 / 50 200 / 200 Output: Urine 0 / 0 Other: # Voids 0 Date of Last Bowel Movement 09/15/18 09/18/18 09/19/18 # Bowel Movements 1 # Incontinent Bowel Movements 0 Narrative: GENERAL: no acute distress, morbidly obese. SKIN: Warm and dry. HEAD: Normocephalic. NECK: Supple, trachea midline. VasCath. CARDIOVASCULAR: Regular rate and rhythm. RESPIRATORY: Clear bilat. GASTROINTESTINAL: Abdomen soft, obese ,non-tender. MUSCULOSKELETAL: generalized edema. - Urinary Catheter Management Indwelling Urethral Catheter Cath placed during this visit: yes, but has since been removed by the nurse Reason for continuing: Hourly intake/output Insertion date: 09/08/18 Insertion time: 22:52 Removal date: 09/17/18 Removal time: 09:10 <Venkatesh Bernal - Last Filed: 09/19/18 14:41> Vital signs: Vital Signs 09/19/18 00:00 09/19/18 02:00 09/19/18 04:00 Temperature 98.7 F 98.7 F Pulse Rate 106 H 101 H 97 H Respiratory Rate 18 18 Blood Pressure 147/73 H 146/70 H Pulse Oximetry 98 97 09/19/18 06:00 09/19/18 08:00 09/19/18 08:11 Temperature 98.4 F Pulse Rate 101 H 97 H 97 H Respiratory Rate 19 20 Blood Pressure 142/89 H Pulse Oximetry 96 09/19/18 10:00 09/19/18 12:00 09/19/18 14:00 Temperature 98.5 F Pulse Rate 97 H 101 H 98 H Respiratory Rate 20 Blood Pressure 108/60 Pulse Oximetry 93 L 09/19/18 15:57 09/19/18 16:00 09/19/18 18:00 Temperature 98.2 F Pulse Rate 101 H 100 H 101 H Respiratory Rate 18 18 Blood Pressure 94/58 L Pulse Oximetry 100 09/19/18 21:06 Temperature Pulse Rate 102 H Respiratory Rate 20 Blood Pressure Pulse Oximetry 96 Intake & Output 09/19/18 09/19/18 09/20/18 06:59 18:59 06:59 Intake Total 600 / 600 1320 / 1320 50 / 50 Output Total 0 / 0 3000 / 3000 Balance 600 / 600 -1680 / -1680 50 / 50 Weight 141.8 kg Intake: IV 400 / 400 600 / 600 50 / 50 Heparin/D5W 25,000 U/250 mL 25, 250 / 250 000 unit In 250 ml @ Per Protocol IV.CONT TITRATE PRN Rx #:[id number] Zyvox 600 mg Premix 300 ML @ 300 / 300 300 / 300 300 mls/hr IV.SIG Q12H [facility] Rx#: [id number] Zosyn 2.25 GM Premix 50 ML @ 100 / 100 50 / 50 50 / 50 100 mls/hr IV.SIG Q6H [facility] Rx#: [id number] Oral 200 / 200 720 / 720 Output: Urine 0 / 0 0 / 0 Hemodialysis Amount 3000 / 3000 Other: Date of Last Bowel Movement 09/18/18 09/19/18 # Bowel Movements 1 1 - Urinary Catheter Management Indwelling Urethral Catheter Cath placed during this visit: no <Chris Majano - Last Filed: 09/19/18 22:26> Assessment and Plan - Assessment (1) Acute kidney failure Code(s): N17.9 - Acute kidney failure, unspecified Status: Acute Plan: Baseline renal function is not known. May have renal hypoperfusion. Could have developed contrast nephropathy after CTA. Patient's renal function has declined. Patient is anuric. Patient has been getting dialysis mainly for fluid removal. Patient was seen on dialysis today - UF goal of 3 L. Monitor for renal recovery. Monitor urine output. (2) Respiratory failure Code(s): J96.90 - Respiratory failure, unspecified, unspecified whether with hypoxia or hypercapnia Status: Acute Plan: s/p extubation. Patient on nasal cannula O2. (3) Obesity Code(s): E66.9 - Obesity, unspecified Status: Acute Qualifiers: Obesity classification: adult class 3 (BMI >= 40) Plan: patient has obesity-hypoventilation syndrome. (4) Pulmonary embolism Code(s): I26.99 - Other pulmonary embolism without acute cor pulmonale Status : Acute Plan: On Heparin. <Venkatesh Bernal - Last Filed: 09/19/18 14:41> - Assessment (1) Acute kidney failure Code(s): N17.9 - Acute kidney failure, unspecified Status: Acute (2) Respiratory failure Code(s): J96.90 - Respiratory failure, unspecified, unspecified whether with hypoxia or hypercapnia Status: Acute (3) Obesity Code(s): E66.9 - Obesity, unspecified Status: Acute Qualifiers: Obesity classification: adult class 3 (BMI >= 40) (4) Pulmonary embolism Code(s): I26.99 - Other pulmonary embolism without acute cor pulmonale Status : Acute - Attending Attestation patient was seen and examined. She has become oligoanuric. She has become dialysis dependent. <Chris Majano - Last Filed: 09/19/18 22:26>
--- NOTE | 2018-09-19 16:39 | P.PNPAL ---
Reason for Visit Reason for visit: a. To assist with evaluation and management of symptoms including: dyspnea, pain, debility. b. To assist medical decision maker(s) with: better understanding of current medical conditions; weighing benefits/burdens of medical treatment options; making medical treatment decisions. Subjective Subjective/Interval History: Follow-up medically necessary for symptom management. Patient seen and examined in the room on MICU. No family at bedside. Dual visit with Gisela Roman LCSW. Also present nurse, Kandi and dialysis nurse. Patient is alert, oriented to self, place and situation. Patient is sleepy nearing the end of dialysis. Creatinine 8.72, BUN 57, GFR 5. Nephrology following, renal function continues to decline patient is becoming anuric. Uncertain if hemodialysis will be temporary at this time. She feels tired, denies shortness of breath or pain. She is asking for food, nurse reports she can eat after HD completed in 10 minutes. She is talking, off oxygen, oxygen sats are in the 90s. Briefly discussed patient's overall medical condition, reasons for admission, clinical status since admission. I spoke with the patient about her toxicology screen being positive for cocaine upon admission. Reiterated need to discontinue cocaine use given her underlying heart conditions. She reminds me that her mother and brother young of heart disease. Lengthy conversation about heart health and that cocaine use will further worsen her heart conditions. We talked about hemodialysis and that we are not certain if this will be temporary or permanent at this time. Patient desires continued aggressive care including FULL CODE. Though she does indicate that she did not like being on the ventilator the last time. Advised her to continue to consider her options and continue conversations with her designated healthcare surrogate, daughter. Questions answered to her satisfaction. Advised patient I will be out of town for the next 2 weeks. Dar Duval APRN will continue to follow in my absence. Family/Friend Interactions: No family present during my visit. Advance Directives Living Will: Never completed Health Care Surrogate: Copy in medical record Durable Power of Survey Party Chief: Never completed Health Care Surrogate Name and Number: ANKUR, Avelina Hadley, daughter: [phone] Documented care wishes:: No Living Will. Completed designation of health care surrogate on 09/16/18 naming her daughter Avelina Hadley as ANKUR. Significant change in goals:: FULL CODE. Goals remain aggressive. Objective Vital Signs: Vital Signs 09/18/18 18:00 09/18/18 20:00 09/18/18 22:00 Temperature 98.4 F Pulse Rate 108 H 106 H 102 H Respiratory Rate 18 Blood Pressure 133/65 Pulse Oximetry 96 09/19/18 00:00 09/19/18 02:00 09/19/18 04:00 Temperature 98.7 F 98.7 F Pulse Rate 106 H 101 H 97 H Respiratory Rate 18 18 Blood Pressure 147/73 H 146/70 H Pulse Oximetry 98 97 09/19/18 06:00 09/19/18 08:00 09/19/18 08:11 Temperature 98.4 F Pulse Rate 101 H 97 H 97 H Respiratory Rate 19 20 Blood Pressure 142/89 H Pulse Oximetry 96 09/19/18 10:00 09/19/18 12:00 09/19/18 15:57 Temperature Pulse Rate 97 H 101 H 101 H Respiratory Rate 18 Blood Pressure Pulse Oximetry Intake & Output 09/18/18 09/19/18 09/19/18 18:59 06:59 18:59 Intake Total 700 / 700 600 / 600 600 / 600 Output Total 0 / 0 3000 / 3000 Balance 700 / 700 600 / 600 -2400 / -2400 Weight 141.8 kg Intake: IV 650 / 650 400 / 400 600 / 600 Heparin/D5W 25,000 U/250 mL 25, 250 / 250 250 / 250 000 unit In 250 ml @ Per Protocol IV.CONT TITRATE PRN Rx #:[id number] Zyvox 600 mg Premix 300 ML @ 300 / 300 300 / 300 300 / 300 300 mls/hr IV.SIG Q12H VICKY Rx#: [id number] Zosyn 2.25 GM Premix 50 ML @ 100 / 100 100 / 100 50 / 50 100 mls/hr IV.SIG Q6H VICKY Rx#: [id number] Oral 50 / 50 200 / 200 Output: Urine 0 / 0 Hemodialysis Amount 3000 / 3000 Other: # Voids 0 Date of Last Bowel Movement 09/15/18 09/18/18 09/19/18 # Bowel Movements 1 # Incontinent Bowel Movements 0 Physical Exam: CONSTITUTIONAL/GENERAL: This is an overweight female, on mech vent. TUBES/LINES/DRAINS: right subclavian central line, vas-cath, PIV, Edwards, nasal cannula. Bariatric bed. SKIN: No jaundice, rashes, or lesions. Ecchymoses on upper extremities. No wounds seen anteriorly. Normothermic. EYES: pupils equal and reactive. ENT: hearing adequate. Nose without bleeding or purulent drainage. Dry oral mucosa. CARDIOVASCULAR: Distant heart sounds. Regular rate and rhythm without murmurs. RESPIRATORY/CHEST: Unlabored respirations. Diminished, breath sounds. GASTROINTESTINAL: Abdomen protuberant, soft, nondistended. No guarding. Bowel sounds distant. GENITOURINARY: Without palpable bladder distension. Edwards catheter in place. MUSCULOSKELETAL: Extremities with edema. NEUROLOGICAL: Awake and alert, oriented to self, place and situation. Follows commands. Speech -soft voice, clear PSYCHIATRIC: Calm. Diagnostic Tests Laboratory: Laboratory Results - last 72 hr 09/16/18 09/16/18 09/16/18 20:14 21:45 23:34 WBC RBC Hgb Hct MCV MCH MCHC RDW Plt Count MPV Prelim Diff (Auto) Neut % (Auto) Lymph % (Auto) [place] % (Auto) Eos % (Auto) Baso % (Auto) Neut # (Auto) Lymph # (Auto) [place] # (Auto) Eos # (Auto) Baso # (Auto) WBC Differential Diff Scan Differential Comment Platelet Estimate Platelet Morphology APTT 35.7 H Sodium Potassium Chloride Carbon Dioxide Anion Gap BUN Creatinine Estimated GFR POC Glucose 148 H 130 H Random Glucose Calcium Phosphorus Total Bilirubin AST ALT Alkaline Phosphatase Ammonia Total Protein Albumin 09/17/18 09/17/18 09/17/18 06:09 06:09 06:09 WBC 13.5 H RBC 4.35 Hgb 11.3 L Hct 35.8 MCV 82.3 MCH 25.9 L MCHC 31.5 L RDW 17.4 H Plt Count 417 MPV 7.8 Prelim Diff (Auto) Neut % (Auto) Lymph % (Auto) [place] % (Auto) Eos % (Auto) Baso % (Auto) Neut # (Auto) Lymph # (Auto) [place] # (Auto) Eos # (Auto) Baso # (Auto) WBC Differential Diff Scan Differential Comment Platelet Estimate Platelet Morphology APTT 39.9 H Sodium 137 Potassium 3.6 Chloride 94 L Carbon Dioxide 27.6 Anion Gap 15 BUN 37 H Creatinine 6.06 H Estimated GFR 7 L POC Glucose Random Glucose 128 H Calcium 9.9 Phosphorus Total Bilirubin 0.5 AST 22 ALT 26 Alkaline Phosphatase 93 Ammonia Total Protein 9.8 H D Albumin 3.4 09/17/18 09/17/18 09/17/18 08:22 08:35 08:35 WBC RBC Hgb Hct MCV MCH MCHC RDW Plt Count MPV Prelim Diff (Auto) Neut % (Auto) Lymph % (Auto) [place] % (Auto) Eos % (Auto) Baso % (Auto) Neut # (Auto) Lymph # (Auto) [place] # (Auto) Eos # (Auto) Baso # (Auto) WBC Differential Diff Scan Differential Comment Platelet Estimate Platelet Morphology APTT Sodium 133 L Potassium 3.5 Chloride 92 L Carbon Dioxide 25.5 Anion Gap 16 H BUN 37 H Creatinine 6.32 H Estimated GFR 7 L POC Glucose 124 H Random Glucose 156 H Calcium 10.1 Phosphorus Total Bilirubin 0.5 AST 22 ALT 27 Alkaline Phosphatase 92 Ammonia 20 Total Protein 9.5 H Albumin 3.3 L 09/17/18 09/17/18 09/17/18 09:00 12:12 19:50 WBC 12.4 H RBC 4.09 Hgb 10.7 L Hct 33.6 L MCV 82.3 MCH 26.1 L MCHC 31.8 L RDW 17.1 Plt Count 388 MPV 7.8 Prelim Diff (Auto) Neut % (Auto) Lymph % (Auto) [place] % (Auto) Eos % (Auto) Baso % (Auto) Neut # (Auto) Lymph # (Auto) [place] # (Auto) Eos # (Auto) Baso # (Auto) WBC Differential Diff Scan Differential Comment Platelet Estimate Platelet Morphology APTT Sodium Potassium Chloride Carbon Dioxide Anion Gap BUN Creatinine Estimated GFR POC Glucose 185 H 169 H Random Glucose Calcium Phosphorus Total Bilirubin AST ALT Alkaline Phosphatase Ammonia Total Protein Albumin 09/17/18 09/18/18 09/18/18 20:40 03:57 05:07 WBC 16.3 H RBC 4.68 Hgb 12.2 Hct 38.0 MCV 81.3 MCH 26.1 L MCHC 32.1 RDW 17.5 H Plt Count 470 H MPV 7.8 Prelim Diff (Auto) Slide review pending Neut % (Auto) 60.7 Lymph % (Auto) 18.9 [place] % (Auto) 13.6 H Eos % (Auto) 6.2 H Baso % (Auto) 0.6 Neut # (Auto) 9.9 H Lymph # (Auto) 3.1 [place] # (Auto) 2.2 H Eos # (Auto) 1.0 H Baso # (Auto) 0.1 WBC Differential . Diff Scan Auto diff confirmed Differential Comment . Platelet Estimate High H Platelet Morphology Normal APTT 40.9 H Sodium Potassium Chloride Carbon Dioxide Anion Gap BUN Creatinine Estimated GFR POC Glucose 146 H Random Glucose Calcium Phosphorus Total Bilirubin AST ALT Alkaline Phosphatase Ammonia Total Protein Albumin 09/18/18 09/18/18 09/18/18 05:07 05:07 05:07 WBC RBC Hgb Hct MCV MCH MCHC RDW Plt Count MPV Prelim Diff (Auto) Neut % (Auto) Lymph % (Auto) [place] % (Auto) Eos % (Auto) Baso % (Auto) Neut # (Auto) Lymph # (Auto) [place] # (Auto) Eos # (Auto) Baso # (Auto) WBC Differential Diff Scan Differential Comment Platelet Estimate Platelet Morphology APTT 44.1 H Sodium 131 L Potassium 3.5 Chloride 90 L Carbon Dioxide 24.5 Anion Gap 17 H BUN 39 H Creatinine 6.55 H Estimated GFR 7 L POC Glucose Random Glucose 147 H Calcium 10.7 H Phosphorus 9.0 H Total Bilirubin 0.5 AST 23 ALT 29 Alkaline Phosphatase 98 Ammonia Total Protein 10.6 H D Albumin 3.9 D 09/18/18 09/18/18 09/18/18 08:36 13:08 16:28 WBC RBC Hgb Hct MCV MCH MCHC RDW Plt Count MPV Prelim Diff (Auto) Neut % (Auto) Lymph % (Auto) [place] % (Auto) Eos % (Auto) Baso % (Auto) Neut # (Auto) Lymph # (Auto) [place] # (Auto) Eos # (Auto) Baso # (Auto) WBC Differential Diff Scan Differential Comment Platelet Estimate Platelet Morphology APTT Sodium Potassium Chloride Carbon Dioxide Anion Gap BUN Creatinine Estimated GFR POC Glucose 151 H 142 H 134 H Random Glucose Calcium Phosphorus Total Bilirubin AST ALT Alkaline Phosphatase Ammonia Total Protein Albumin 09/18/18 09/19/18 09/19/18 19:55 00:19 04:20 WBC RBC Hgb Hct MCV MCH MCHC RDW Plt Count MPV Prelim Diff (Auto) Neut % (Auto) Lymph % (Auto) [place] % (Auto) Eos % (Auto) Baso % (Auto) Neut # (Auto) Lymph # (Auto) [place] # (Auto) Eos # (Auto) Baso # (Auto) WBC Differential Diff Scan Differential Comment Platelet Estimate Platelet Morphology APTT Sodium Potassium Chloride Carbon Dioxide Anion Gap BUN Creatinine Estimated GFR POC Glucose 123 H 133 H 126 H Random Glucose Calcium Phosphorus Total Bilirubin AST ALT Alkaline Phosphatase Ammonia Total Protein Albumin 09/19/18 09/19/18 09/19/18 06:59 06:59 09:39 WBC 12.8 H RBC 5.18 Hgb 13.5 Hct 42.4 MCV 81.7 MCH 26.1 L MCHC 32.0 RDW 17.4 H Plt Count 485 H MPV 7.6 Prelim Diff (Auto) Neut % (Auto) Lymph % (Auto) [place] % (Auto) Eos % (Auto) Baso % (Auto) Neut # (Auto) Lymph # (Auto) [place] # (Auto) Eos # (Auto) Baso # (Auto) WBC Differential Diff Scan Differential Comment Platelet Estimate Platelet Morphology APTT Sodium 127 L Potassium 3.5 Chloride 86 L Carbon Dioxide 22.8 Anion Gap 18 H BUN 57 H Creatinine 8.72 H Estimated GFR 5 L POC Glucose 128 H Random Glucose 120 H Calcium 10.3 H Phosphorus Total Bilirubin 0.6 AST 21 ALT 26 Alkaline Phosphatase 104 Ammonia Total Protein 11.3 H D Albumin 4.0 09/19/18 13:29 WBC RBC Hgb Hct MCV MCH MCHC RDW Plt Count MPV Prelim Diff (Auto) Neut % (Auto) Lymph % (Auto) [place] % (Auto) Eos % (Auto) Baso % (Auto) Neut # (Auto) Lymph # (Auto) [place] # (Auto) Eos # (Auto) Baso # (Auto) WBC Differential Diff Scan Differential Comment Platelet Estimate Platelet Morphology APTT Sodium Potassium Chloride Carbon Dioxide Anion Gap BUN Creatinine Estimated GFR POC Glucose 109 Random Glucose Calcium Phosphorus Total Bilirubin AST ALT Alkaline Phosphatase Ammonia Total Protein Albumin Result Diagrams: 09/19/18 06:59 09/19/18 06:59 Imaging: Abdomen Ultrasound 09/09/18 00:00 CONCLUSION: 1. Enlarged echogenic liver suggesting fatty infiltration 2. , Gallbladder not visualized Chest CTA 09/09/18 00:00 CONCLUSION: 1. Very limited examination due to patient body habitus. 2. Elongated filling defect in the right pulmonary artery suspicious for pulmonary embolus. Prominent artifact related to patient body habitus is seen through out the central pulmonary arteries limiting the evaluation. The segmental and subsegmental branches cannot be effectively evaluated on this study. Nuclear medicine VQ scan could be performed for further evaluation. 3. Moderate diffuse cardiomegaly. 4. Moderate-sized area of right lower lobe pulmonary consolidation. 5. Bilateral dependent lower lobe atelectasis. Head CT 09/09/18 00:00 CONCLUSION: No acute intracranial findings. . Venous Doppler Study 09/09/18 00:00 CONCLUSION: 1. Negative exam with no evidence of deep venous thrombosis. Chest X-Ray 09/19/18 06:00 CONCLUSION: Stable cardiomegaly and central airspace opacities. Procedures: * 09/12/18 - a line, vas-cath placement, HD started * 09/08/18 - intubated Assessment and Plan - Disease Oriented Problem List (1) Acute kidney failure (2) Respiratory failure (3) Obesity (4) Pulmonary embolism - Symptom Scale (1) Chronic pain 0-10 Scale: 0 (2) Dyspnea 0-10 Scale: 0 (3) Debility 0-10 Scale: 0 Pertinent Non-Medical Issues: Psychosocial: . Disabled, previously worked as a [employer]. Has 1 daughter, Avelina. Spiritual: Sabian[employer] valerie. Legal: Patient is currently capacitated to make her own health care decisions. No Living Will. Completed designation of health care surrogate on 09/16/18 naming her daughter Avelina Hadley as HCS. Ethical issues impacting care: No known concerns at this time. Important Contacts: * Avelina Hadley, daughter/ health care surrogate: [phone] * Audra (sp?) Ramana, spouse: [phone] Prognosis: Mrs. Hadley is a 47 year old chronically, critically ill patient with multiple comorbidities now with respiratory, renal and heart failure. Overall prognosis appears poor. Code Status: Full Code Plan: * Decision maker: Patient is capacitated to make her own health care decisions. No Living Will. Completed designation of health care surrogate on 09/16/18 naming her daughter Avelina Hadley as HCS. * FULL CODE -confirmed with pt on 09/16/18 post medical extubation, she desires reintubation if needed. * Medical update provided. Patient desires continued aggressive care including FULL CODE. Patient is willing to continue with aggressive up until she is in a vegetative state. She expresses if she is at a point where she does not know who she is, unable to identify her family, not able to move or eat. * SYMPTOMS: Pain: denies pain during my visit. Potential pain sources include tubes, bedbound status, multiorgan failure. Dyspnea:medically extubated on 09/16. On oxygen via nasal cannula, tolerating well. Denies SOB. Debility: due to elevated BMI, recent, respiratory, renal and heart failure. No new medication recommendations at this time. * Palliative care will continue to follow to assist with symptom management and further clarification of goals of medical treatment as needed. . Attestation Attestation: To help prompt me to consider important information that might be impacting today's encounter and assessment, information from prior notes written by myself or my colleagues may have been "brought forward" into today's note. My signature on this note, however, is an attestation that I personally performed the exam, history, and/or decision-making noted today, and, unless otherwise indicated, the interactions with patient, family, and staff as well as the review of records all occurred today. I also attest that the listed assessment and stated plan reflect my best clinical judgment today based on the combination of historical information, prior notes, and today's exam/ interactions. When time spent is documented, it refers only to time spent today by the signer, or if indicated, combined time spent today by collaborating physician/nurse practitioner.
[2018-09-20] MEDS: Insulin NovoLIN Regular Correctional Sugar Inj SQ SCH ×6 (04:21→23:31)
[2018-09-20] MEDS: Oral Hygiene Kit OROPHARYNG SCH ×4 (04:22→23:30)
[2018-09-20] MEDS: Piperacil/Tazo 2.25 GM Premix 50 ML IV.SIG SCH ×4 (04:22→21:20)
[2018-09-20] MEDS: Heparin Drip 25,000 UNIT/250 ML BAG IV.CONT PRN (04:39)
--- NOTE | 2018-09-20 04:47 | XR ---
EXAM DATE: 09/20/2018 4:34 AM EST AGE/SEX: 47 years / Female INDICATIONS: Respiratory Disease. CLINICAL DATA: This is the patient's subsequent encounter. Patient reports that signs and symptoms h ave been present for 2 weeks and indicates a pain score of Nonresponsive. MEDICAL/SURGICAL HISTORY: Congestive heart failure. Respiratory failure. Atrial flutter Non-re sponsive. COMPARISON: C, CHEST 1V SINGLE AP, 09/19/2018. . FINDINGS: The right IJ central venous catheter in good position. There is some persistent consolidation in the right lung base. Left lung is relatively clear. Heart and mediastinum are stable CONCLUSION: Persistent consolidation in the right lung base Electronically signed by: Zach Arcos MD Board Certified Radiologist 09/20/2018 4:46 AM EST
[2018-09-20 05:41] LABS: Hematocrit 37.5 % (35.0-46.0); Hemoglobin 12.3 gm/dL (11.6-15.3); Mean Corpuscular HGB Conc 32.9 % (32.0-36.0); Mean Corpuscular Hemoglobin 26.5 pg (27.0-34.0); Mean Corpuscular Volume 80.5 fL (80.0-100.0); Platelet Count 496 th/mm3 (150-450); Red Blood Count 4.65 mil/mm3 (4.00-5.30); Red Cell Distribution Width 17.1 % (11.6-17.2); White Blood Count 13.8 th/mm3 (4.0-11.0)
[2018-09-20 06:04] LABS: Alanine Aminotransferase 23 U/L (10-53); Albumin 3.7 g/dL (3.4-5.0); Alkaline Phosphatase 94 U/L (45-117); Anion Gap 17 meq/L (5-15); Aspartate Aminotransferase 20 U/L (15-37); Blood Urea Nitrogen 42 mg/dL (7-18); Calcium 9.8 mg/dL (8.5-10.1); Carbon Dioxide 23.9 meq/L (21.0-32.0); Chloride 88 meq/L (98-107); Glomerular Filtration Rate 6 mL/min (>89); Glucose,Random 136 mg/dL (74-106); Potassium 3.5 meq/L (3.5-5.1); Sodium 129 meq/L (136-145); Total Protein 10.4 g/dL (6.4-8.2)
--- NOTE | 2018-09-20 08:07 | P.PNCC ---
Subjective Subjective Remarks/Hospital Course: Middle-aged morbidly obese female was brought in emergently department by EMS due to respiratory failure and unresponsiveness. She was brought in being bagged by BV. Patient was a GCS of 3 upon arrival and hence in no condition to give any history. As per EMS the call went out as shortness of breath while patient got into the car. When they arrived she was in severe respiratory distress. They put her on BiPAP but shortly patient started to lose consciousness with agonal respirations. Family was at the scene and informed EMS that she has history of congestive heart failure. Patient was tachycardic upon arrival with heart rate in 170s. It appeared to be irregularly irregular on the monitor. She was immediately intubated by ED attending with improvement in her heart rate. There is no additional history available. Per report, the family admits the patient has been taking a lot of medications but they are unaware of the names or reasons. 09/10 Patient remains sedated with Diprivan and intubated. Renal function is worsening with Cr: 4.02 from 2.60. Afebrile. On Heparin drip. 09/11: Patient remains intubated sedated critically ill. Urine output has improved with Bumex infusion however creatinine has worsened from 4-5.5 today. D/W with nephrology-no acute indication for dialysis however considering creatinine worsening, will reduce Bumex infusion 0.5 mg/h. Chest x-ray is pending at this time 09/12: Remains intubated sedated with propofol however wakes up and follows commands. Creatinine worsening 6.5 today. Even though her urine output has improved on Bumex infusion 3 L in 24 hours, patient has increasing pulmonary vascular congestion and pulmonary edema. Discussed with nephrology. Will place hemodialysis catheter and start dialysis today for fluid removal. 09/13: Remains intubated sedated with propofol, started on hemodialysis yesterday achieving negative balance. However pulmonary edema persistent. Wakes up to command weakly follows. Creatinine slightly improved with dialysis. Urine output 1.8 L in 24 hours 09/14: Patient sedated on fentanyl and propofol infusions. Cardiac index now 2.8, the patient continues on milrinone. Chest x-ray reveals pulmonary edema, patient was dialyzed 4 L removed yesterday and urine output 1150 in the last 24 hours. 09/15: Remains lightly sedated on low-dose propofol and fentanyl. Wakes up easily follows commands. Currently on milrinone 0.2 mcg/kg/min. Reduce to 0.15 mcg/kg/min due to mild hypotension. Start CPAP trials. Urine output 700 mL. Discussed with nephrology dialyzed today. Chest x-ray remains essentially unchanged on my review with some persistent pulmonary edema but overall improving 09/16: Patient continues to achieve negative balance with hemodialysis. 4 L removed yesterday, dialysis again today. Plan for CPAP trial after hemodialysis. Lightly sedated with propofol and fentanyl. Continue milrinone at 0.15 mcg/kg/min. Cardiac index 2.2 09/17: Patient was extubated yesterday maintaining oxygen saturation on Ventimask. Chest x-ray shows worsening pulmonary edema. Patient is almost anuric now. I have discussed with Dr. Majano regarding hemodialysis sooner today. He is agreeable. Continues to be on milrinone at the lowest dose. Cardiac index maintained at 2.2. Will attempt to get a limited echo as the patient is extubated to evaluate ejection fraction 09/18: No acute events reported overnight, remains on Ventimask maintaining saturation above 90%. Occasionally lethargic but follows commands. Remains on milrinone will start weaning today. Hemodialysis yesterday with 4 L removed. Urine output only 125 mL in 24 hours. Repeat limited echo after extubation also very limited windows 09/19: Weaned off Milrinone 09/18/18. Remains relatively stable maintains oxygen saturation above 94% on 4 L nasal cannula. Chest x-ray shows persistent perihilar predominantly infiltrates probably from pulmonary edema. Due for hemodialysis today. Remains oliguric to anuric 09/20: Patient remains hemodialysis dependent however clinically improving. Chest x-ray shows improved pulmonary edema. Oxygen saturation 100% on 4 L. More awake alert following commands appears in good spirits Objective Vital Signs / I&O: Vital Signs 09/19/18 08:11 09/19/18 10:00 09/19/18 12:00 Temperature 98.5 F Pulse Rate 97 H 97 H 101 H Respiratory Rate 20 20 Blood Pressure 108/60 Pulse Oximetry 93 L 09/19/18 14:00 09/19/18 15:57 09/19/18 16:00 Temperature 98.2 F Pulse Rate 98 H 101 H 100 H Respiratory Rate 18 18 Blood Pressure 94/58 L Pulse Oximetry 100 09/19/18 18:00 09/19/18 20:00 09/19/18 21:06 Temperature 97.7 F Pulse Rate 101 H 104 H 102 H Respiratory Rate 20 20 Blood Pressure 104/56 L Pulse Oximetry 98 96 09/19/18 22:00 09/20/18 00:00 09/20/18 01:57 Temperature 97.6 F Pulse Rate 106 H 102 H Respiratory Rate 19 21 Blood Pressure 95/63 L Pulse Oximetry 99 09/20/18 02:00 09/20/18 03:57 09/20/18 04:00 Temperature 98.4 F Pulse Rate 102 H 101 H 99 H Respiratory Rate 20 17 Blood Pressure Pulse Oximetry 100 09/20/18 06:00 Temperature Pulse Rate 100 H Respiratory Rate Blood Pressure Pulse Oximetry Intake & Output 09/19/18 09/20/18 09/20/18 18:59 06:59 18:59 Intake Total 1320 / 1320 1200 / 1200 Output Total 3000 / 3000 0 / 0 Balance -1680 / -1680 1200 / 1200 Weight 141.8 kg Intake: IV 600 / 600 700 / 700 Heparin/D5W 25,000 U/250 mL 25, 250 / 250 250 / 250 000 unit In 250 ml @ Per Protocol IV.CONT TITRATE PRN Rx #:[id number] Zyvox 600 mg Premix 300 ML @ 300 / 300 300 / 300 300 mls/hr IV.SIG Q12H VICKY Rx#: [id number] Zosyn 2.25 GM Premix 50 ML @ 50 / 50 150 / 150 100 mls/hr IV.SIG Q6H VICKY Rx#: [id number] Oral 720 / 720 500 / 500 Output: Urine 0 / 0 0 / 0 Hemodialysis Amount 3000 / 3000 Other: Date of Last Bowel Movement 09/19/18 09/19/18 # Bowel Movements 1 2 Result Diagrams: 09/20/18 04:30 09/20/18 04:30 Objective Remarks: GENERAL: Patient is 47 yo morbidly obese -[place] female, maintaining oxygen saturation above 99% on NC SKIN: Warm and dry. HEAD: Normocephalic. No scleral icterus. No injection or drainage. NECK: Supple, trachea midline. Unable to appreciate JVD due to body habitus CARDIOVASCULAR: Regular rate and rhythm without murmurs, gallops, or rubs. On IV heparin. RESPIRATORY: Breath sounds equal bilaterally. Air entry diminished at the bases. Bilateral few rhonchi GASTROINTESTINAL: Abdomen soft, obese ,non-tender, nondistended. MUSCULOSKELETAL: No cyanosis, + edema. Neuro: Alert awake, oriented. Appears to be in good spirits. Muscle strength improving follows commands x4 Assessment and Plan - Assessment and Plan Plan: ASSESSMENT: Acute hypoxemic respiratory failure-resolved Acute systolic heart failure/Pulmonary edema-improving Probable pneumonia/Sepsis Acute kidney failure, anuric on hemodialysis now Acute pulmonary embolism Paroxysmal atrial fibrillation Obesity hypoventilation syndrome Mild elevated trop Leukocytosis Elevated AST Morbid obesity PLAN: Neuro: Off all continuous sedation. Neuro exam normal. PT OOB to chair daily CT brain: No acute intracranial findings Pulm: Extubated 09/16/2018, maintaining airway, maintaining oxygen saturation about 99% on NC 4L Bronchodilators, CTA chest: Very limited examination due to patient body habitus. Elongated filling defect in the right pulmonary artery suspicious for PE. Moderate-sized area consolidation of right lower lobe. Bilateral dependent lower lobe atelectasis. CXR today -pulm edema improving Continue Heparin drip. Monitor PTT per protocol. Transition to Coumadin today. Pharmacy consulted Broad-spectrum antibiotics with Zosyn, Zyvox. Continue scheduled and as needed breathing treatments. EzPAP, Acapella CV: Started on milrinone 09/13/2018 to maintain cardiac index more than 2.2. Discontinued 09/18/2018 Echo 09/09: Technically difficult study making assessment of left ventricular function and wall motion. Suboptimal. Grossly, left ventricular function appears severely reduced. probable global hypokinesis. Repeat limited echo 09/17/2018, very poor windows difficult to interpret Cardiology Dr. Law following. Continue fluid removal with hemodialysis : Monitor renal function, I/O's, avoid nephrotoxins. Fluid removal with hemodialysis started 09/12/[address] Majano. Patient remains anuric, scheduled hemodialysis Alt days US abdomen: No masses or hydronephrosis, enlarged liver likely due to fatty infiltration. Free water restriction due to hyponatremia GI: On Pepcid for GI prophylaxis, advance diet as tolerated. Speech following ID: Continue abx (continue Zosyn, discontinued vancomycin 09/11/2018) monitor for signs of infections ( fever, WBC) Started Zyvox due to increase in WBC count Strep pneumonia and Legionella urinary Ag negative 09/09 Blood, sputum and urine cx: All negative to date Heme: Monitor CBC, coags- on Heparin drip. Coumadin started today Endo: SSI with accuchecks for glycemic control DVT GI prophylaxis -SCDs -Heparin drip transition to Coumadin as above -Pepcid Level 3 Consult [facility] to assume care in am 09/21/18
[2018-09-20] MEDS ORDERED: Warfarin Consult Pharmacy OTHER PRN (08:08)
[2018-09-20] MEDS: Chlorhexidine 0.12% Oral Kit 15 ML UDC OROPHARYNG SCH ×2 (08:24→21:19)
[2018-09-20] MEDS: Famotidine PF Inj 20 MG/2 ML Vial IV.PUSH SCH ×2 (08:34→21:17)
[2018-09-20] MEDS: Senna/Docusate Sodium 8.6/50 MG Tablet PO SCH ×2 (08:35→21:18)
[2018-09-20 08:53] LABS: INR 1.1 Ratio
[2018-09-20] MEDS: Nystatin 100,000 UNITS/GM Powder 15 GM Bottle TOPICAL SCH ×2 (11:46→21:19)
--- NOTE | 2018-09-20 12:09 | P.PNNP ---
Subjective Interval history: Patient was seen, no distress. Patient was sitting in a chair at bedside, was talking more today. Patient started on Coumadin yesterday. Patient had dialysis yesterday, 3 L removed. She has become dialysis dependent. Patient is oligoanuric. <Venkatesh Bernal - Last Filed: 09/20/18 12:15> Physical Exam Vital signs: Vital Signs 09/19/18 14:00 09/19/18 15:57 09/19/18 16:00 Temperature 98.2 F Pulse Rate 98 H 101 H 100 H Respiratory Rate 18 18 Blood Pressure 94/58 L Pulse Oximetry 100 09/19/18 18:00 09/19/18 20:00 09/19/18 21:06 Temperature 97.7 F Pulse Rate 101 H 104 H 102 H Respiratory Rate 20 20 Blood Pressure 104/56 L Pulse Oximetry 98 96 09/19/18 22:00 09/20/18 00:00 09/20/18 01:57 Temperature 97.6 F Pulse Rate 106 H 102 H Respiratory Rate 19 21 Blood Pressure 95/63 L Pulse Oximetry 99 09/20/18 02:00 09/20/18 03:57 09/20/18 04:00 Temperature 98.4 F Pulse Rate 102 H 101 H 99 H Respiratory Rate 20 17 Blood Pressure Pulse Oximetry 100 09/20/18 06:00 09/20/18 08:00 09/20/18 08:22 Temperature Pulse Rate 100 H 109 H Respiratory Rate 18 Blood Pressure Pulse Oximetry 93 L 09/20/18 08:52 Temperature Pulse Rate 99 H Respiratory Rate 16 Blood Pressure Pulse Oximetry Intake & Output 09/19/18 09/20/18 09/20/18 18:59 06:59 18:59 Intake Total 1320 / 1320 1200 / 1200 Output Total 3000 / 3000 0 / 0 Balance -1680 / -1680 1200 / 1200 Weight 141.8 kg Intake: IV 600 / 600 700 / 700 Heparin/D5W 25,000 U/250 mL 25, 250 / 250 250 / 250 000 unit In 250 ml @ Per Protocol IV.CONT TITRATE PRN Rx #:[id number] Zyvox 600 mg Premix 300 ML @ 300 / 300 300 / 300 300 mls/hr IV.SIG Q12H VICKY Rx#: [id number] Zosyn 2.25 GM Premix 50 ML @ 50 / 50 150 / 150 100 mls/hr IV.SIG Q6H VICKY Rx#: [id number] Oral 720 / 720 500 / 500 Output: Urine 0 / 0 0 / 0 Hemodialysis Amount 3000 / 3000 Other: Date of Last Bowel Movement 09/19/18 09/19/18 09/19/18 # Bowel Movements 1 2 Narrative: GENERAL: no acute distress, morbidly obese. SKIN: Warm and dry. HEAD: Normocephalic. NECK: Supple, trachea midline. VasCath. CARDIOVASCULAR: Regular rate and rhythm. RESPIRATORY: Clear bilat. GASTROINTESTINAL: Abdomen soft, obese ,non-tender. MUSCULOSKELETAL: generalized edema. - Urinary Catheter Management Indwelling Urethral Catheter Cath placed during this visit: yes, but has since been removed by the nurse Reason for continuing: Hourly intake/output Insertion date: 09/08/18 Insertion time: 22:52 Removal date: 09/17/18 Removal time: 09:10 <Venkatesh Bernal - Last Filed: 09/20/18 12:15> Vital signs: Vital Signs 09/19/18 18:00 09/19/18 20:00 09/19/18 21:06 Temperature 97.7 F Pulse Rate 101 H 104 H 102 H Respiratory Rate 20 20 Blood Pressure 104/56 L Pulse Oximetry 98 96 09/19/18 22:00 09/20/18 00:00 09/20/18 01:57 Temperature 97.6 F Pulse Rate 106 H 102 H Respiratory Rate 19 21 Blood Pressure 95/63 L Pulse Oximetry 99 09/20/18 02:00 09/20/18 03:57 09/20/18 04:00 Temperature 98.4 F Pulse Rate 102 H 101 H 99 H Respiratory Rate 20 17 Blood Pressure Pulse Oximetry 100 09/20/18 06:00 09/20/18 08:00 09/20/18 08:22 Temperature Pulse Rate 100 H 109 H Respiratory Rate 18 Blood Pressure Pulse Oximetry 93 L 09/20/18 08:52 09/20/18 10:00 09/20/18 12:00 Temperature Pulse Rate 99 H 112 H 109 H Respiratory Rate 16 18 Blood Pressure Pulse Oximetry Intake & Output 09/19/18 09/20/18 09/20/18 18:59 06:59 18:59 Intake Total 1320 / 1320 1200 / 1200 350 / 350 Output Total 3000 / 3000 0 / 0 Balance -1680 / -1680 1200 / 1200 350 / 350 Weight 141.8 kg Intake: IV 600 / 600 700 / 700 350 / 350 Heparin/D5W 25,000 U/250 mL 25, 250 / 250 250 / 250 000 unit In 250 ml @ Per Protocol IV.CONT TITRATE PRN Rx #:[id number] Zyvox 600 mg Premix 300 ML @ 300 / 300 300 / 300 300 / 300 300 mls/hr IV.SIG Q12H VICKY Rx#: [id number] Zosyn 2.25 GM Premix 50 ML @ 50 / 50 150 / 150 50 / 50 100 mls/hr IV.SIG Q6H VICKY Rx#: [id number] Oral 720 / 720 500 / 500 Output: Urine 0 / 0 0 / 0 Hemodialysis Amount 3000 / 3000 Other: Date of Last Bowel Movement 09/19/18 09/19/18 09/19/18 # Bowel Movements 1 2 - Urinary Catheter Management Indwelling Urethral Catheter Cath placed during this visit: no <Chris Majano - Last Filed: 09/20/18 17:03> Assessment and Plan - Assessment (1) Acute kidney failure Code(s): N17.9 - Acute kidney failure, unspecified Status: Acute Plan: Baseline renal function is not known. May have renal hypoperfusion. Could have developed contrast nephropathy after CTA. Patient has become dialysis dependent. Patient has been getting dialysis mainly for fluid removal. Patient had dialysis yesterday, 3 L removed. Patient to be dialyzed tomorrow. Monitor for renal recovery. Monitor urine output. (2) Respiratory failure Code(s): J96.90 - Respiratory failure, unspecified, unspecified whether with hypoxia or hypercapnia Status: Acute Plan: s/p extubation. Patient on nasal cannula O2. (3) Obesity Code(s): E66.9 - Obesity, unspecified Status: Acute Qualifiers: Obesity classification: adult class 3 (BMI >= 40) Plan: patient has obesity-hypoventilation syndrome. (4) Pulmonary embolism Code(s): I26.99 - Other pulmonary embolism without acute cor pulmonale Status : Acute Plan: Started on Coumadin yesterday. <Venkatesh Bernal - Last Filed: 09/20/18 12:15> - Assessment (1) Acute kidney failure Code(s): N17.9 - Acute kidney failure, unspecified Status: Acute (2) Respiratory failure Code(s): J96.90 - Respiratory failure, unspecified, unspecified whether with hypoxia or hypercapnia Status: Acute (3) Obesity Code(s): E66.9 - Obesity, unspecified Status: Acute Qualifiers: Obesity classification: adult class 3 (BMI >= 40) (4) Pulmonary embolism Code(s): I26.99 - Other pulmonary embolism without acute cor pulmonale Status : Acute - Attending Attestation Patient was seen and examined. Has become oligoanuric. She will continue to need dialysis for some time. Avoid nephrotoxins. <Chris Majano - Last Filed: 09/20/18 17:03>
--- NOTE | 2018-09-20 14:09 | P.PNCA ---
Subjective Interval history: Patient denies any CP, pressure, palpitations, dizziness or SOB. Patient is currently up in a chair getting ready to be moved back to bed. Patient does complain of back pain. Medications and Allergies Allergies Allergy/AdvReac Type Severity Reaction Status Date / Time Penicillins Allergy Hives Verified 09/18/18 00:28 lisinopril AdvReac Severe Anaphylaxis Verified 09/18/18 00:28 Home Medications Medication Instructions Recorded Confirmed Type allopurinol 100 mg PO DAILY 09/11/18 09/11/18 History cyclobenzaprine 5 mg PO TID 09/11/18 09/11/18 History furosemide 40 mg PO DAILY 09/11/18 09/11/18 History hydralazine 50 mg PO Q8HR 09/11/18 09/11/18 History insulin detemir U-100 [Levemir 24 unit SUBCUT Q12HR 09/11/18 09/11/18 History U-100 Insulin] insulin regular human [Novolin R 1 sliding scale dose SUBCUT UD 09/11/18 History Regular U-100 Insuln] levothyroxine 50 mcg PO DAILY 09/11/18 09/11/18 History meloxicam DAILY 09/11/18 History potassium chloride 20 meq PO DAILY 09/11/18 09/11/18 History pravastatin 40 mg PO HS 09/11/18 09/11/18 History pregabalin [Lyrica] 50 mg PO BID 09/11/18 09/11/18 History sertraline 50 mg PO HS 09/11/18 09/11/18 History tramadol 50 mg PO Q6H PRN 09/11/18 09/11/18 History Active Medications: Active Medications Acetaminophen (Tylenol) 650 mg PO Q6H PRN PRN Reason: PAIN 1-5 AND/OR FEVER >101F Last Admin: 09/18/18 19:39 Dose: 650 mg Acetaminophen (Tylenol) 650 mg PO UNSCH PRN PRN Reason: SEE LABEL COMMENTS Hydrocodone Bitart/Acetaminophen (Cerrillos 7.5/325) 1 tab PO Q6H PRN PRN Reason: PAIN 6-10;IF ABLE TO TAKE PO Last Admin: 09/20/18 06:44 Dose: 1 tab Al Hydroxide/Mg Hydroxide (Milk Of Magnesia Liq) 30 ml PO Q12H PRN PRN Reason: Mild Constipation Albuterol (Duoneb Neb (Prn)) 1 ampul NEB Q2HR NEB PRN PRN Reason: WHEEZING Last Admin: 09/14/18 10:45 Dose: 1 ampul Albuterol (Duoneb Neb (Marshall)) 1 ampul NEB Q6HR NEB [facility] Last Admin: 09/20/18 08:51 Dose: 1 ampul Bisacodyl (Dulcolax Supp) 10 mg RECTAL DAILY PRN PRN Reason: SEVERE CONSITIPATION Carvedilol (Coreg) 3.125 mg PO BID [facility] Last Admin: 09/20/18 08:34 Dose: 3.125 mg Chlorhexidine Gluconate (Peridex 0.12% Oral Kit) 15 ml OROPHARYNG BID@0800, 2000 [facility] Last Admin: 09/20/18 08:24 Dose: Not Given Clonidine HCl (Catapres) 0.1 mg PO UNSCH PRN PRN Reason: SEE LABEL COMMENTS Cyclobenzaprine HCl (Flexeril) 10 mg PO Q8H PRN PRN Reason: SPASM Last Admin: 09/14/18 18:14 Dose: 10 mg Dextrose (D50w Vial) 50 ml IV.PUSH UNSCH PRN PRN Reason: PER HYPOGLYCEMIA PROTOCOL Diphenhydramine HCl (Benadryl) 25 mg PO UNSCH PRN PRN Reason: SEE LABEL COMMENTS Famotidine (Pepcid Pf Inj) 10 mg IV.PUSH Q12HR [facility] Last Admin: 09/20/18 08:34 Dose: 10 mg Gelatin (Gelfoam 12 Mm/7 Mm Topical) 1 foam TOPICAL PRN PRN PRN Reason: help stop bleeding from site Gentamicin Sulfate (Gentamicin Inj) 20 mg OTHER WITH DIALYSIS PRN PRN Reason: Dwell Gentamycin Lock Last Admin: 09/17/18 11:55 Dose: 20 mg Glucagon (Glucagon Inj) 1 mg OTHER PRN PRN PRN Reason: for Hypoglycemia Protocol Heparin Sodium (Porcine) (Heparin Inj) 8,000 units OTHER WITH DIALYSIS PRN PRN Reason: for machine prime Last Admin: 09/16/18 22:55 Dose: 2,500 units Heparin Sodium (Porcine) (Heparin Inj) 1,000 units OTHER WITH DIALYSIS PRN PRN Reason: Dwell Heparin to Fill Catheter Last Admin: 09/17/18 11:55 Dose: 1,000 units Heparin Sodium/Dextrose (Heparin/D5w 25,000 U/250 Ml) 25,000 unit in 250 mls @ 0 mls/hr IV.CONT TITRATE PRN; Protocol PRN Reason: Per Protocol Last Admin: 09/20/18 04:39 Dose: 1,600 units/hr, 16 mls/hr Piperacillin/Tazobactam/Dextrose (Zosyn 2.25 Gm Premix) 50 mls @ 100 mls/hr IV.SIG Q6H [facility] Last Admin: 09/20/18 11:46 Dose: 100 mls/hr Albumin Human (Flexbumin 25% Inj) 100 mls @ 60 mls/hr IV.SIG WITH DIALYSIS PRN PRN Reason: hypotension / volume replace Last Infusion: 09/13/18 16:50 Dose: Infused Sodium Chloride (Ns Inj) 1,000 mls @ 0 mls/hr OTHER .Q0M PRN PRN Reason: for prime and rinse back Sodium Chloride (Ns Inj) 1,000 mls @ 200 mls/hr OTHER .Q5H PRN PRN Reason: for dialyzer flush PRN Sodium Chloride (Ns Inj) 1,000 mls @ 0 mls/hr IV.CONT .Q0M PRN PRN Reason: hypotension / volume replace Linezolid (Zyvox 600 Mg Premix) 300 mls @ 300 mls/hr IV.SIG Q12H [facility] Last Admin: 09/20/18 08:35 Dose: 300 mls/hr Insulin Human Regular (Novolin R Correctional Sugar Inj) 0 units SQ Q4HR [facility]; Protocol Last Admin: 09/20/18 12:15 Dose: Not Given Lactulose (Lactulose Liq) 30 ml PO DAILY PRN PRN Reason: SEVERE CONSITIPATION Lactulose (Lactulose Liq) 30 ml PO BID [facility] Last Admin: 09/20/18 08:24 Dose: Not Given Mannitol (Mannitol Inj) 12.5 gm IV.PUSH UNSCH PRN PRN Reason: hypotension / volume replace Miscellaneous Medication () 1 each OROPHARYNG 0000,0400,1200,1600 [facility] Last Admin: 09/20/18 11:47 Dose: Not Given Morphine Sulfate (Morphine Inj) 2 mg IV.PUSH Q2H PRN PRN Reason: PAIN SCALE 6 TO 10 Last Admin: 09/18/18 00:29 Dose: 2 mg Nitroglycerin (Nitrostat Sl) 0.4 mg SL Q5M PRN PRN Reason: CHEST PAIN Nystatin (Mycostatin Powder) 1 applicatio TOPICAL BID [facility] Last Admin: 09/20/18 11:46 Dose: 1 applicatio Ondansetron HCl (Zofran Inj) 4 mg IV.PUSH Q6H PRN PRN Reason: NAUSEA OR VOMITING Pharmacy Profile Note (Coumadin Consult Pharmacy) 1 each OTHER UNSCH PRN PRN Reason: PHARMACY DOCUMENTATION Senna/Docusate Sodium (Nereida-Colace) 1 tab PO BID [facility] Last Admin: 09/20/18 08:35 Dose: Not Given Sennosides (Senokot) 17.2 mg PO Q12H PRN PRN Reason: Moderate Constipation Sevelamer Carbonate (Renvela) 800 mg PO TIDAC [facility] Last Admin: 09/20/18 12:02 Dose: 800 mg Sodium Chloride (Ns Flush) 2 ml IV.FLUSH BID [facility] Last Admin: 09/20/18 08:34 Dose: 2 ml Sodium Chloride (Ns Flush) 2 ml IV.FLUSH PRN PRN PRN Reason: FLUSH AFTER USING IV ACCESS Sodium Chloride (Ns Flush) 5 ml IV.FLUSH PRN PRN PRN Reason: flush each lumen during HD Warfarin Sodium (Coumadin) 5 mg PO DAILY@1600 [facility] Physical Exam Vital signs: Vital Signs 09/19/18 15:57 09/19/18 16:00 09/19/18 18:00 Temperature 98.2 F Pulse Rate 101 H 100 H 101 H Respiratory Rate 18 18 Blood Pressure 94/58 L Pulse Oximetry 100 09/19/18 20:00 09/19/18 21:06 09/19/18 22:00 Temperature 97.7 F Pulse Rate 104 H 102 H 106 H Respiratory Rate 20 20 Blood Pressure 104/56 L Pulse Oximetry 98 96 09/20/18 00:00 09/20/18 01:57 09/20/18 02:00 Temperature 97.6 F Pulse Rate 102 H 102 H Respiratory Rate 19 21 Blood Pressure 95/63 L Pulse Oximetry 99 09/20/18 03:57 09/20/18 04:00 09/20/18 06:00 Temperature 98.4 F Pulse Rate 101 H 99 H 100 H Respiratory Rate 20 17 Blood Pressure Pulse Oximetry 100 09/20/18 08:00 09/20/18 08:22 09/20/18 08:52 Temperature Pulse Rate 109 H 99 H Respiratory Rate 18 16 Blood Pressure Pulse Oximetry 93 L 09/20/18 10:00 09/20/18 12:00 Temperature Pulse Rate 112 H 109 H Respiratory Rate 18 Blood Pressure Pulse Oximetry Intake & Output 09/19/18 09/20/18 09/20/18 18:59 06:59 18:59 Intake Total 1320 / 1320 1200 / 1200 Output Total 3000 / 3000 0 / 0 Balance -1680 / -1680 1200 / 1200 Weight 141.8 kg Intake: IV 600 / 600 700 / 700 Heparin/D5W 25,000 U/250 mL 25, 250 / 250 250 / 250 000 unit In 250 ml @ Per Protocol IV.CONT TITRATE PRN Rx #:[id number] Zyvox 600 mg Premix 300 ML @ 300 / 300 300 / 300 300 mls/hr IV.SIG Q12H [facility] Rx#: [id number] Zosyn 2.25 GM Premix 50 ML @ 50 / 50 150 / 150 100 mls/hr IV.SIG Q6H [facility] Rx#: [id number] Oral 720 / 720 500 / 500 Output: Urine 0 / 0 0 / 0 Hemodialysis Amount 3000 / 3000 Other: Date of Last Bowel Movement 09/19/18 09/19/18 09/19/18 # Bowel Movements 1 2 - Constitutional no acute distress - Routine HEENT Exam Head: Present: normocephalic Eye: Present: PERRL ENT: Present: mucous membranes moist - Routine Neck Exam Present: full ROM - Routine Respiratory Exam Present: decreased breath sounds, CTA bilaterally - Routine Cardiovascular Exam Present: S1, S2. Absent: murmur, gallop, rubs - Routine Abdominal Exam Present: normoactive bowel sounds - Routine Extremities Exam Present: edema, full ROM, pulses intact, normal capillary refill. Absent: cyanosis, clubbing - Routine Skin Exam Present: intact - Routine Neurological Exam Present: oriented X3 - Detailed Neurological Exam: Coma Scale Eye Opening: Spontaneous Verbal Response: Oriented Motor Response: Obey commands [place] Coma Scale Total: 15 - Routine Psychiatric Exam Present: normal affect - Urinary Catheter Management Indwelling Urethral Catheter Cath placed during this visit: yes, but has since been removed by the nurse Reason for continuing: Hourly intake/output Insertion date: 09/08/18 Insertion time: 22:52 Removal date: 09/17/18 Removal time: 09:10 Results 09/20/18 04:30 09/20/18 04:30 Cardiac Enzymes 09/19/18 09/20/18 Range/Units 06:59 04:30 AST 21 20 (15-37) U/L Coagulation 09/19/18 09/20/18 09/20/18 Range/Units 21:37 04:30 04:30 PT 11.0 (9.8-11.6) sec APTT 44.8 H 40.8 H (23.4-31.7) sec CBC 09/19/18 09/20/18 Range/Units 06:59 04:30 WBC 12.8 H 13.8 H (4.0-11.0) th/mm3 RBC 5.18 4.65 (4.00-5.30) mil/mm3 Hgb 13.5 12.3 (11.6-15.3) gm/dL Hct 42.4 37.5 (35.0-46.0) % Plt Count 485 H 496 H (150-450) th/mm3 Comprehensive Metabolic Panel 09/19/18 09/20/18 Range/Units 06:59 04:30 Sodium 127 L 129 L (136-145) meq/L Potassium 3.5 3.5 (3.5-5.1) meq/L Chloride 86 L 88 L (98-107) meq/L Carbon Dioxide 22.8 23.9 (21.0-32.0) meq/L BUN 57 H 42 H (7-18) mg/dL Creatinine 8.72 H 7.62 H (0.50-1.00) mg/dL Calcium 10.3 H 9.8 (8.5-10.1) mg/dL AST 21 20 (15-37) U/L ALT 26 23 (10-53) U/L Alkaline Phosphatase 104 94 (45-117) U/L Total Protein 11.3 H D 10.4 H D (6.4-8.2) g/dL Albumin 4.0 3.7 (3.4-5.0) g/dL Intake and Output 09/19/18 09/20/18 09/20/18 22:59 06:59 14:59 Intake Total 1120 / 1120 800 / 800 Output Total 3000 / 3000 0 / 0 Balance -1880 / -1880 800 / 800 Intake: IV 400 / 400 300 / 300 Heparin/D5W 25,000 U/250 mL 25, 250 / 250 000 unit In 250 ml @ Per Protocol IV.CONT TITRATE PRN Rx #:[id number] Zyvox 600 mg Premix 300 ML @ 300 / 300 300 mls/hr IV.SIG Q12H [facility] Rx#: [id number] Zosyn 2.25 GM Premix 50 ML @ 100 / 100 50 / 50 100 mls/hr IV.SIG Q6H [facility] Rx#: [id number] Oral 720 / 720 500 / 500 Output: Urine 0 / 0 0 / 0 Hemodialysis Amount 3000 / 3000 Other: Date of Last Bowel Movement 09/19/18 09/19/18 09/19/18 # Bowel Movements 1 2 Weight 141.8 kg - Imaging and Cardiology Imaging: Impressions Chest X-Ray 09/19/18 06:00 CONCLUSION: Stable cardiomegaly and central airspace opacities. Chest X-Ray 09/20/18 06:00 CONCLUSION: Persistent consolidation in the right lung base Assessment and Plan - Assessment (1) CHF (congestive heart failure) Code(s): I50.9 - Heart failure, unspecified Status: Acute (2) Cardiomyopathy Code(s): I42.9 - Cardiomyopathy, unspecified Status: Acute (3) Acute kidney failure Code(s): N17.9 - Acute kidney failure, unspecified Status: Acute (4) Respiratory failure Code(s): J96.90 - Respiratory failure, unspecified, unspecified whether with hypoxia or hypercapnia Status: Acute (5) Obesity Code(s): E66.9 - Obesity, unspecified Status: Acute - Plan Patient remains stable off milrinone. BP stable, start low dose carvedilol Continue HD, renal evaluation in progress. Increase activity, PT. Overall prognosis still guarded. We will continue to monitor the patient during her hospitalization. The patient was seen and evaluated by Dr. Law who participated in care, management and decision making. - Attending Attestation Patient seen and examined. I reviewed and agree with the evaluation and plan as presented. Continue ICU care. Start low dose carvedilol and titrate as tolerated. (5) Obesity Qualifiers: Obesity classification: adult class 3 (BMI >= 40)
[2018-09-20] MEDS: Acetaminophen 325 MG Tablet PO PRN (23:30)
[2018-09-21] MEDS: Heparin Drip 25,000 UNIT/250 ML BAG IV.CONT PRN (00:20)
--- NOTE | 2018-09-21 01:13 | MB ---
cc: Km Franco MD DATE: 09/20/2018 REASON FOR CONSULTATION: Respiratory failure and sleep apnea. HISTORY OF PRESENT ILLNESS: This is an extremely obese, middle-aged female who was brought to the emergency room with unresponsiveness and respiratory distress, had to be intubated and placed on ventilator support. The patient apparently was brought in by EVAC, who found her poorly responsive and partially obtunded and initially was placed on BiPAP, but became unresponsive and thus had to be intubated. The patient had poor urine output and had to be on sedation with Diprivan and her renal functions deteriorated since admission and in spite of being on a Bumex drip, the patient had to be placed on dialysis. The initial chest x-ray showed pulmonary vascular congestion and basilar infiltrates, and she received hemodialysis every other day. Following 5 days of ventilator support, the patient was weaned off the ventilator and extubated, and placed on oxygen via nasal cannula. Fluid balance had also improved with dialysis. The patient is presently sitting up, answering questions, and seems to be breathing much better. She does have a history of obstructive sleep apnea and has been on home CPAP, but was placed on BiPAP setup while in the hospital. She has had significant leg edema, but denied chest pains or abdominal pains. No nausea or vomiting. PAST HISTORY: Has been significant for hypertension and a prior history of pneumonia and pulmonary edema. No history of diabetes. The patient has had some arthritis of her extremities. ALLERGIES: NO DRUG ALLERGIES ARE LISTED. HABITS: The patient does not smoke and has had no significant history of alcohol. REVIEW OF SYSTEMS: The patient has had some weight gain, headaches, leg swelling, epigastric distress and reflux. She has urinary frequency. She has had no blackout spells. No skin lesions. PHYSICAL EXAMINATION: GENERAL: This is a morbidly obese, middle-aged lady who is awake and responsive, and seems to be maintaining adequate O2 saturations on 2 liters nasal cannula. VITAL SIGNS: Blood pressure of 110/60, pulse is 105, respirations 22, temperature 98.2. HEENT: Head is normocephalic. Pupils are reactive and equal. Tongue is moist. Throat is mildly injected. Ears: No inflammation. NECK: No bruits. No thyroid enlargement or lymphadenopathy. CHEST: Distant breath sounds with scattered wheezes throughout both lung martin, prolonged expirations. HEART: The heart sounds are irregular, S1 and S2. No murmur. ABDOMEN: Soft, protuberant. No mass. No organomegaly. EXTREMITIES: Revealed mild edema. Decreased pulses. Reflexes 1+. NEUROLOGIC: The patient does move all her extremities with no gross motor deficits. Cranial nerves are grossly intact. RECTAL: Deferred. SKIN: No lesions. IMPRESSION: 1. Resolving respiratory failure. 2. Sepsis and hypotension. 3. Pulmonary edema with bibasilar effusions and atelectasis. 4. Obstructive sleep apnea syndrome. 5. Hypertension. PLAN: The patient will be placed on O2 at 3 liters during the day and nebulized DuoNeb solution added q.i.d. and p.r.n. She will be encouraged to use the incentive spirometry every 2-3 hours and use a CPAP mask nightly. A new mask will be arranged. She will also submit sputum for culture and Gram stain and a followup x-ray to be obtained this week. I will follow the case with you, Dr. Lopez. Thank you for this consultation. VElizabeth Franco MD VJD/pierre , 12:33 AM , 12:47 AM
[2018-09-21] MEDS: Oral Hygiene Kit OROPHARYNG SCH ×3 (03:02→16:23)
[2018-09-21] MEDS: Piperacil/Tazo 2.25 GM Premix 50 ML IV.SIG SCH (03:02)
[2018-09-21] MEDS: Insulin NovoLIN Regular Correctional Sugar Inj SQ SCH ×4 (03:03→16:23)
[2018-09-21 03:30] LABS: Hematocrit 36.8 % (35.0-46.0); Hemoglobin 12.1 gm/dL (11.6-15.3); Mean Corpuscular HGB Conc 32.8 % (32.0-36.0); Mean Corpuscular Hemoglobin 26.4 pg (27.0-34.0); Mean Corpuscular Volume 80.3 fL (80.0-100.0); Mean Platelet Volume 7.6 fL (7.0-11.0); Platelet Count 439 th/mm3 (150-450); Red Blood Count 4.58 mil/mm3 (4.00-5.30); Red Cell Distribution Width 17.2 % (11.6-17.2); White Blood Count 11.6 th/mm3 (4.0-11.0)
[2018-09-21 03:42] LABS: Activated Partial Thrombo Time 39.8 sec (23.4-31.7); INR 1.1 Ratio; Prothrombin Time 10.7 sec (9.8-11.6)
[2018-09-21 04:10] LABS: Alanine Aminotransferase 23 U/L (10-53); Albumin 3.4 g/dL (3.4-5.0); Alkaline Phosphatase 88 U/L (45-117); Anion Gap 16 meq/L (5-15); Aspartate Aminotransferase 17 U/L (15-37); Blood Urea Nitrogen 57 mg/dL (7-18); Calcium 9.9 mg/dL (8.5-10.1); Carbon Dioxide 24.7 meq/L (21.0-32.0); Chloride 87 meq/L (98-107); Glomerular Filtration Rate 4 mL/min (>89); Glucose,Random 132 mg/dL (74-106); Magnesium 2.5 mg/dL (1.5-2.5); Potassium 3.6 meq/L (3.5-5.1); Sodium 128 meq/L (136-145); Total Protein 9.8 g/dL (6.4-8.2)
--- NOTE | 2018-09-21 04:48 | XR ---
EXAM DATE: 09/21/2018 4:05 AM EST AGE/SEX: 47 years / Female INDICATIONS: Shortness of breath, possible pulmonary disease. CLINICAL DATA: This is the patient's subsequent encounter. Patient reports that signs and symptoms h ave been present for 2 weeks and indicates a pain score of Nonresponsive. MEDICAL/SURGICAL HISTORY: Congestive heart failure. Non-responsive. COMPARISON: . FINDINGS: Single view the chest demonstrates the small consolidation right lung base is stable. There is a righ t IJ dual-lumen catheter in good position. Cardiac silhouette remains widened. There is no visible pn eumothorax. CONCLUSION: Persistent consolidation right lower lobe Electronically signed by: Zach Arcos MD Board Certified Radiologist 09/21/2018 4:47 AM EST
[2018-09-21] MEDS: Senna/Docusate Sodium 8.6/50 MG Tablet PO SCH ×2 (08:21→22:47)
[2018-09-21] MEDS: Chlorhexidine 0.12% Oral Kit 15 ML UDC OROPHARYNG SCH ×2 (08:21→22:47)
[2018-09-21] MEDS: Nystatin 100,000 UNITS/GM Powder 15 GM Bottle TOPICAL SCH (08:21)
[2018-09-21] MEDS: Famotidine PF Inj 20 MG/2 ML Vial IV.PUSH SCH ×2 (09:06→22:45)
--- NOTE | 2018-09-21 09:31 | P.PNPL ---
Subjective Interval history: Patient is lying in bed in NAD. Afebrile. Physical Exam Vital signs: Vital Signs 09/20/18 10:00 09/20/18 12:00 09/20/18 14:00 Temperature 98.1 F Pulse Rate 112 H 97 H 100 H Respiratory Rate 18 Blood Pressure 166/96 H Pulse Oximetry 99 09/20/18 16:00 09/20/18 18:00 09/20/18 20:00 Temperature 98.0 F 97.7 F Pulse Rate 92 H 110 H 96 H Respiratory Rate 17 18 Blood Pressure 137/88 125/71 Pulse Oximetry 96 100 09/20/18 21:52 09/20/18 22:00 09/21/18 00:00 Temperature 103 F H Pulse Rate 93 H 99 H 96 H Respiratory Rate 18 18 Blood Pressure 132/79 Pulse Oximetry 100 100 09/21/18 02:00 09/21/18 04:00 09/21/18 04:46 Temperature 98.0 F Pulse Rate 96 H 93 H 90 Respiratory Rate 16 18 Blood Pressure 103/65 Pulse Oximetry 100 09/21/18 06:00 09/21/18 08:00 09/21/18 08:59 Temperature Pulse Rate 98 H 80 Respiratory Rate 18 Blood Pressure Pulse Oximetry 100 Intake & Output 09/20/18 09/21/18 09/21/18 18:59 06:59 18:59 Intake Total 640 / 640 890 / 890 Output Total 0 / 0 0 / 0 Balance 640 / 640 890 / 890 Weight 144.1 kg Intake: IV 400 / 400 650 / 650 Heparin/D5W 25,000 U/250 mL 25, 250 / 250 000 unit In 250 ml @ Per Protocol IV.CONT TITRATE PRN Rx #:[id number] Zyvox 600 mg Premix 300 ML @ 300 / 300 300 / 300 300 mls/hr IV.SIG Q12H [facility] Rx#: [id number] Zosyn 2.25 GM Premix 50 ML @ 100 / 100 100 / 100 100 mls/hr IV.SIG Q6H [facility] Rx#: [id number] Oral 240 / 240 240 / 240 Output: Urine 0 / 0 0 / 0 Other: Date of Last Bowel Movement 09/19/18 09/21/18 # Bowel Movements 1 3 - Constitutional no acute distress, morbidly obese - Routine HEENT Exam Head: Present: normocephalic, atraumatic Eye: Present: EOMI, PERRL, normal accommodation, conjunctivae pink ENT: Present: mucous membranes moist - Routine Neck Exam Present: supple, full ROM - Routine Respiratory Exam Present: CTA bilaterally - Routine Cardiovascular Exam Present: RRR, S1, S2 - Routine Abdominal Exam Present: soft, normoactive bowel sounds - Routine Extremities Exam Present: edema, full ROM - Routine Skin Exam Present: intact - Routine Neurological Exam Present: alert, oriented X3, CN II-XII intact - Urinary Catheter Management Indwelling Urethral Catheter Cath placed during this visit: yes, but has since been removed by the nurse Reason for continuing: Hourly intake/output Insertion date: 09/08/18 Insertion time: 22:52 Removal date: 09/17/18 Removal time: 09:10 Assessment and Plan - Plan 1)Resp Insuff 2)Morbid obesity/VIVIANA 3)LEIDA on HD 4)Cardiomyopathy 5)Bibasilar atelectasis 6)RLL consolidation Plan Continue with oxygen keep sats >92% Bronchodilators, IS BIPAP PRN and nocturnally for VIVIANA d/c abx patient has been on Zosyn since 09/09 Sputum cx, strep pneumonia and Legionella urinary Ag negative on 09/09 HD per renal. Continue Heparin drip nd Coumadin, d/c Heparin once INR >2.0 Continue treatment plan.
--- NOTE | 2018-09-21 12:00 | P.PNIM ---
Subjective Interval history: Patient reports she is feeling better overall. She complains of back pain. Discussed with RN. Respiratory status stable. Physical Exam Vital signs: Last Vital Signs Temp 98.0 F 09/21/18 04:00 Pulse 92 H 09/21/18 10:00 Resp 18 09/21/18 08:59 BP 103/65 09/21/18 04:00 Pulse Ox 99 09/21/18 08:00 Intake & Output 09/19/18 09/20/18 09/21/18 09/22/18 06:59 06:59 06:59 06:59 Intake Total 1300 / 1300 2520 / 2520 1530 / 1530 Output Total 0 / 0 3000 / 3000 0 / 0 Balance 1300 / 1300 -480 / -480 1530 / 1530 Weight 141.8 kg 141.8 kg 144.1 kg Narrative: GENERAL: no acute distress, morbidly obese. SKIN: Warm and dry. HEAD: Normocephalic. NECK: Supple, trachea midline. VasCath. CARDIOVASCULAR: Regular rate and rhythm. RESPIRATORY: Clear bilat. diminished at the bases. GASTROINTESTINAL: Abdomen soft, obese ,non-tender. MUSCULOSKELETAL: generalized edema. Urinary Catheter Management Indwelling Urethral Catheter: Cath placed during this visit: yes, but has since been removed by the nurse Insertion date: 09/08/18 Insertion time: 22:52 Removal date: 09/17/18 Removal time: 09:10 Results Labs CBC & Chem 7: 09/22/18 09:52 09/22/18 09:52 Imaging Imaging: Impressions Chest X-Ray 09/21/18 06:00 CONCLUSION: Persistent consolidation right lower lobe Assessment and Plan (1) CHF (congestive heart failure): Code(s): I50.9 - Heart failure, unspecified Status: Acute (2) Cardiomyopathy: Code(s): I42.9 - Cardiomyopathy, unspecified Status: Acute (3) Acute kidney failure: Code(s): N17.9 - Acute kidney failure, unspecified Status: Acute (4) Respiratory failure: Code(s): J96.90 - Respiratory failure, unspecified, unspecified whether with hypoxia or hypercapnia Status: Acute (5) Obesity: Code(s): E66.9 - Obesity, unspecified Status: Acute Plan 47-year-old morbidly obese female was brought in emergently department by EMS due to respiratory failure and unresponsiveness. She was brought in being bagged by BVM. Patient was a GCS of 3 upon arrival and hence in no condition to give any history. As per EMS the call went out as shortness of breath while patient got into the car. When they arrived she was in severe respiratory distress. They put her on BiPAP but shortly patient started to lose consciousness with agonal respirations. Family was at the scene and informed EMS that she has history of congestive heart failure. Patient was tachycardic upon arrival with heart rate in 170s. It appeared to be irregularly irregular on the monitor. She was immediately intubated by ED attending with improvement in her heart rate. Patient has been on the critical care service. She stabilized and transferred to the hospitalist service. Acute hypoxemic respiratory failure: Improving Extubated 09/16/2018, maintaining airway, maintaining oxygen saturation about 99% on NC 4L Bronchodilators, CTA chest: Very limited examination due to patient body habitus. Elongated filling defect in the right pulmonary artery suspicious for PE. Moderate-sized area consolidation of right lower lobe. Bilateral dependent lower lobe atelectasis. Pulmonary edema improved Continue Heparin drip. Monitor PTT per protocol. Bridging to Coumadin. Pharmacy consulted Broad-spectrum antibiotics with Zosyn, Zyvox. Continue scheduled and as needed breathing treatments. EzPAP, Acapella Acute systolic heart failure/Pulmonary edema Started on milrinone 09/13/2018 to maintain cardiac index more than 2.2. Discontinued 09/18/2018 Echo 09/09: Technically difficult study making assessment of left ventricular function and wall motion. Suboptimal. Grossly, left ventricular function appears severely reduced. probable global hypokinesis. Repeat limited echo 09/17/2018, very poor windows difficult to interpret Cardiology Dr. Law following. Continue fluid removal with hemodialysis Acute kidney failure, anuric on hemodialysis now Monitor renal function, I/O's, avoid nephrotoxins. Fluid removal with hemodialysis started 09/12/[address] Majano. Patient remains anuric, scheduled hemodialysis Alt days US abdomen: No masses or hydronephrosis, enlarged liver likely due to fatty infiltration. Free water restriction due to hyponatremia Probable pneumonia/Sepsis Continue abx (continue Zosyn, discontinued vancomycin 09/11/2018) monitor for signs of infections ( fever, WBC) Started Zyvox due to increase in WBC count Strep pneumonia and Legionella urinary Ag negative 09/09 Blood, sputum and urine cx: All negative to date Acute pulmonary embolism Paroxysmal atrial fibrillation Monitor CBC, coags- on Heparin drip. Coumadin started Obesity hypoventilation syndrome Mild elevated trop Leukocytosis Elevated AST Morbid obesity DVT GI prophylaxis -SCDs -Heparin drip transition to Coumadin as above -Pepcid Okay to transfer the patient to [facility]. Need mobilization. PT consulted. Progress Note: Quality VTE Deep Vein Thrombosis/Pulmonary Embolism Present on Admission: No _ (1) Acute kidney failure Qualifiers: Acute renal failure type: (2) CHF (congestive heart failure) Qualifiers: Heart failure chronicity: Heart failure type: (3) Respiratory failure Qualifiers: Chronicity: Respiratory failure complication: (4) Cardiomyopathy Qualifiers: Cardiomyopathy type: (5) Obesity Qualifiers: Body mass index: Obesity classification: adult class 3 (BMI >= 40) Obesity type: Serious obesity comorbidity presence:
--- NOTE | 2018-09-21 14:00 | P.PNNP ---
Subjective Interval history: no acute complaints Physical Exam Vital signs: Vital Signs 09/20/18 14:00 09/20/18 16:00 09/20/18 18:00 Temperature 98.0 F Pulse Rate 100 H 92 H 110 H Respiratory Rate 17 Blood Pressure 137/88 Pulse Oximetry 96 09/20/18 20:00 09/20/18 21:52 09/20/18 22:00 Temperature 97.7 F Pulse Rate 96 H 93 H 99 H Respiratory Rate 18 18 Blood Pressure 125/71 Pulse Oximetry 100 100 09/21/18 00:00 09/21/18 02:00 09/21/18 04:00 Temperature 103 F H 98.0 F Pulse Rate 96 H 96 H 93 H Respiratory Rate 18 16 Blood Pressure 132/79 103/65 Pulse Oximetry 100 100 09/21/18 04:46 09/21/18 06:00 09/21/18 08:00 Temperature Pulse Rate 90 98 H 91 H Respiratory Rate 18 16 Blood Pressure Pulse Oximetry 99 09/21/18 08:59 09/21/18 10:00 09/21/18 12:00 Temperature Pulse Rate 80 92 H 89 Respiratory Rate 18 16 Blood Pressure Pulse Oximetry Intake & Output 09/20/18 09/21/18 09/21/18 18:59 06:59 18:59 Intake Total 640 / 640 890 / 890 Output Total 0 / 0 0 / 0 Balance 640 / 640 890 / 890 Weight 144.1 kg Intake: IV 400 / 400 650 / 650 Heparin/D5W 25,000 U/250 mL 25, 250 / 250 000 unit In 250 ml @ Per Protocol IV.CONT TITRATE PRN Rx #:[id number] Zyvox 600 mg Premix 300 ML @ 300 / 300 300 / 300 300 mls/hr IV.SIG Q12H VICKY Rx#: [id number] Zosyn 2.25 GM Premix 50 ML @ 100 / 100 100 / 100 100 mls/hr IV.SIG Q6H VICKY Rx#: [id number] Oral 240 / 240 240 / 240 Output: Urine 0 / 0 0 / 0 Other: Date of Last Bowel Movement 09/19/18 09/21/18 09/21/18 # Bowel Movements 1 3 - Constitutional no acute distress - Routine HEENT Exam Head: Present: normocephalic Eye: Present: EOMI ENT: Present: mucous membranes moist - Routine Neck Exam Present: supple - Routine Respiratory Exam Present: decreased breath sounds - Routine Cardiovascular Exam Present: RRR - Routine Abdominal Exam Present: soft - Routine Neurological Exam Present: alert, oriented X3 - Detailed Neurological Exam: Coma Scale Eye Opening: Spontaneous - Routine Psychiatric Exam Present: normal affect - Urinary Catheter Management Indwelling Urethral Catheter Cath placed during this visit: yes, but has since been removed by the nurse Reason for continuing: Hourly intake/output Insertion date: 09/08/18 Insertion time: 22:52 Removal date: 09/17/18 Removal time: 09:10 Assessment and Plan - Assessment (1) Acute kidney failure Code(s): N17.9 - Acute kidney failure, unspecified Status: Acute Plan: Baseline renal function is not known. May have renal hypoperfusion. Could have developed contrast nephropathy after CTA. Patient has become dialysis dependent. Patient has been getting dialysis mainly for fluid removal. HD today, with UF as tolerated. Continue TTS HD - however HD will be done Sunday with schedule, then Monitor for renal recovery. Monitor urine output. (2) Respiratory failure Code(s): J96.90 - Respiratory failure, unspecified, unspecified whether with hypoxia or hypercapnia Status: Acute Plan: s/p extubation. Patient on nasal cannula O2. (3) Obesity Code(s): E66.9 - Obesity, unspecified Status: Acute Qualifiers: Obesity classification: adult class 3 (BMI >= 40) Plan: patient has obesity-hypoventilation syndrome. (4) Pulmonary embolism Code(s): I26.99 - Other pulmonary embolism without acute cor pulmonale Status : Acute Plan: Started on Coumadin
[2018-09-21] MEDS: Heparin 10,000 UNITS/10 ML Vial (for IV use) OTHER PRN (15:44)
[2018-09-22] MEDS: Insulin NovoLIN Regular Correctional Sugar Inj SQ SCH ×8 (00:01→23:01)
[2018-09-22] MEDS: Oral Hygiene Kit OROPHARYNG SCH ×5 (00:07→23:01)
[2018-09-22] MEDS: Nystatin 100,000 UNITS/GM Powder 15 GM Bottle TOPICAL SCH ×3 (01:38→21:27)
[2018-09-22] MEDS: Chlorhexidine 0.12% Oral Kit 15 ML UDC OROPHARYNG SCH ×2 (08:49→19:31)
[2018-09-22] MEDS: Famotidine PF Inj 20 MG/2 ML Vial IV.PUSH SCH ×2 (10:19→21:16)
[2018-09-22 10:20] LABS: Hemoglobin 13.1 gm/dL (11.6-15.3); Mean Corpuscular HGB Conc 32.9 % (32.0-36.0); Mean Corpuscular Hemoglobin 26.9 pg (27.0-34.0); Mean Corpuscular Volume 81.7 fL (80.0-100.0); Platelet Count 419 th/mm3 (150-450); Red Blood Count 4.89 mil/mm3 (4.00-5.30); Red Cell Distribution Width 17.2 % (11.6-17.2)
[2018-09-22] MEDS: Senna/Docusate Sodium 8.6/50 MG Tablet PO SCH ×2 (10:20→21:11)
[2018-09-22 10:24] LABS: Activated Partial Thrombo Time 61.1 sec (23.4-31.7); INR 1.1 Ratio; Prothrombin Time 11.2 sec (9.8-11.6)
[2018-09-22 10:41] LABS: Calcium 9.9 mg/dL (8.5-10.1); Carbon Dioxide 22.7 meq/L (21.0-32.0); Potassium 3.6 meq/L (3.5-5.1)
--- NOTE | 2018-09-22 12:19 | P.PNPL ---
Subjective Interval history: Patient is lying in be din NAD. On 4L oxygen. Afebrile. Physical Exam Vital signs: Vital Signs 09/21/18 14:00 09/21/18 15:00 09/21/18 16:00 Temperature 98.0 F Pulse Rate 85 95 H 91 H Respiratory Rate 18 16 Blood Pressure 149/55 H Pulse Oximetry 100 09/21/18 18:00 09/21/18 20:00 09/22/18 00:00 Temperature 97.4 F L 98.6 F Pulse Rate 89 98 H 103 H Respiratory Rate 18 19 Blood Pressure 100/53 L 88/50 L Pulse Oximetry 98 95 09/22/18 03:55 09/22/18 04:00 09/22/18 10:02 Temperature 97.7 F Pulse Rate 80 97 H 84 Respiratory Rate 22 18 16 Blood Pressure 129/78 Pulse Oximetry 96 100 Intake & Output 09/21/18 09/22/18 09/22/18 18:59 06:59 18:59 Intake Total 790 / 790 780 / 780 300 / 300 Output Total 2700 / 2700 200 / 200 Balance -1910 / -1910 580 / 580 300 / 300 Weight 141.2 kg Intake: IV 550 / 550 300 / 300 300 / 300 Heparin/D5W 25,000 U/250 mL 25, 250 / 250 000 unit In 250 ml @ Per Protocol IV.CONT TITRATE PRN Rx #:[id number] Zyvox 600 mg Premix 300 ML @ 300 / 300 300 / 300 300 / 300 300 mls/hr IV.SIG Q12H VICKY Rx#: [id number] Oral 240 / 240 480 / 480 Output: Urine 200 / 200 Hemodialysis Amount 2700 / 2700 Other: Date of Last Bowel Movement 09/21/18 09/21/18 09/22/18 # Bowel Movements 2 - Constitutional no acute distress, morbidly obese - Routine HEENT Exam Head: Present: normocephalic, atraumatic Eye: Present: EOMI, PERRL, normal accommodation, conjunctivae pink ENT: Present: mucous membranes moist - Routine Neck Exam Present: supple, full ROM, trachea midline - Routine Respiratory Exam Present: CTA bilaterally - Routine Cardiovascular Exam Present: RRR, S1, S2 - Routine Abdominal Exam Present: soft, normoactive bowel sounds - Routine Extremities Exam Present: edema - Routine Skin Exam Present: intact - Routine Neurological Exam Present: alert - Urinary Catheter Management Indwelling Urethral Catheter Cath placed during this visit: yes, but has since been removed by the nurse Reason for continuing: Hourly intake/output Insertion date: 09/08/18 Insertion time: 22:52 Removal date: 09/17/18 Removal time: 09:10 Assessment and Plan - Plan 1)Resp Insuff 2)Morbid obesity/VIVIANA 3)LEIDA on HD 4)Cardiomyopathy 5)Bibasilar atelectasis 6)RLL consolidation 7)Hyponatremia Plan Continue with oxygen keep sats >92% Bronchodilators, IS BIPAP PRN and nocturnally for VIVIANA CXR 09/21: RLL consolidation Off abx ( s/p Zosyn 09/09-09/21) Sputum cx, strep pneumonia and Legionella urinary Ag negative on 09/09 HD per renal. Monitor renal function , avoid nephrotoxins. Continue Heparin drip and Coumadin, d/c Heparin once INR >2.0 Continue treatment plan.
[2018-09-22] MEDS: Heparin Drip 25,000 UNIT/250 ML BAG IV.CONT PRN (12:59)
--- NOTE | 2018-09-22 15:26 | P.PNIM ---
Subjective Interval history: Patient seen earlier this morning. She is lethargic and unable to stay awake. Discussed with RN. She received [place] last night. Physical Exam Vital signs: Last Vital Signs Temp 97.6 F 09/22/18 12:00 Pulse 84 09/22/18 12:00 Resp 22 09/22/18 12:00 BP 108/58 L 09/22/18 12:00 Pulse Ox 100 09/22/18 12:00 Intake & Output 09/20/18 09/21/18 09/22/18 09/23/18 06:59 06:59 06:59 06:59 Intake Total 2520 / 2520 1530 / 1530 1570 / 1570 300 / 300 Output Total 3000 / 3000 0 / 0 2900 / 2900 Balance -480 / -480 1530 / 1530 -1330 / -1330 300 / 300 Weight 141.8 kg 144.1 kg 141.2 kg Narrative: GENERAL: Lethargic, morbidly obese. NECK: Supple, trachea midline. VasCath. CARDIOVASCULAR: Regular rate and rhythm. RESPIRATORY: Limited exam due to body habitus. Clear anteriorly. GASTROINTESTINAL: Abdomen soft, obese ,non-tender. MUSCULOSKELETAL: generalized edema. Urinary Catheter Management Indwelling Urethral Catheter: Cath placed during this visit: yes, but has since been removed by the nurse Insertion date: 09/08/18 Insertion time: 22:52 Removal date: 09/17/18 Removal time: 09:10 Results Labs CBC & Chem 7: 09/22/18 09:52 09/22/18 09:52 Assessment and Plan (1) CHF (congestive heart failure): Code(s): I50.9 - Heart failure, unspecified Status: Acute (2) Cardiomyopathy: Code(s): I42.9 - Cardiomyopathy, unspecified Status: Acute (3) Acute kidney failure: Code(s): N17.9 - Acute kidney failure, unspecified Status: Acute (4) Respiratory failure: Code(s): J96.90 - Respiratory failure, unspecified, unspecified whether with hypoxia or hypercapnia Status: Acute (5) Obesity: Code(s): E66.9 - Obesity, unspecified Status: Acute Plan 47-year-old morbidly obese female was brought in emergently department by EMS due to respiratory failure and unresponsiveness. She was brought in being bagged by BVM. Patient was a GCS of 3 upon arrival and hence in no condition to give any history. As per EMS the call went out as shortness of breath while patient got into the car. When they arrived she was in severe respiratory distress. They put her on BiPAP but shortly patient started to lose consciousness with agonal respirations. Family was at the scene and informed EMS that she has history of congestive heart failure. Patient was tachycardic upon arrival with heart rate in 170s. It appeared to be irregularly irregular on the monitor. She was immediately intubated by ED attending with improvement in her heart rate. Patient has been on the critical care service. She stabilized and transferred to the hospitalist service. Acute hypoxemic respiratory failure: Improving Extubated 09/16/2018, maintaining airway, maintaining oxygen saturation about 99% on NC 4L Bronchodilators, CTA chest: Very limited examination due to patient body habitus. Elongated filling defect in the right pulmonary artery suspicious for PE. Moderate-sized area consolidation of right lower lobe. Bilateral dependent lower lobe atelectasis. Pulmonary edema improved Continue Heparin drip. Monitor PTT per protocol. Bridging to Coumadin. Pharmacy consulted Broad-spectrum antibiotics with Zosyn, Zyvox. Continue scheduled and as needed breathing treatments. EzPAP, Acapella Acute systolic heart failure/Pulmonary edema Started on milrinone 09/13/2018 to maintain cardiac index more than 2.2. Discontinued 09/18/2018 Echo 09/09: Technically difficult study making assessment of left ventricular function and wall motion. Suboptimal. Grossly, left ventricular function appears severely reduced. probable global hypokinesis. Repeat limited echo 09/17/2018, very poor windows difficult to interpret Cardiology Dr. Law following. Continue fluid removal with hemodialysis Acute kidney failure, anuric on hemodialysis now Monitor renal function, I/O's, avoid nephrotoxins. Fluid removal with hemodialysis started 09/12/[address] Majano. Scheduled hemodialysis Alt days US abdomen: No masses or hydronephrosis, enlarged liver likely due to fatty infiltration. Free water restriction due to hyponatremia Vascath to be evaluated by IR in AM. [facility]. Probable pneumonia/Sepsis Continue abx (continue Zosyn, discontinued vancomycin 09/11/2018) monitor for signs of infections ( fever, WBC) Started Zyvox due to increase in WBC count Strep pneumonia and Legionella urinary Ag negative 09/09 Blood, sputum and urine cx: All negative to date Acute pulmonary embolism Paroxysmal atrial fibrillation Monitor CBC, coags- on Heparin drip. Coumadin started Obesity hypoventilation syndrome Mild elevated trop Leukocytosis Elevated AST Morbid obesity Acute encephalopathy: - Could be secondary to Narcotics. Change [place] to lower dose. Hold Narcotics. - Monitor neuro status. DVT GI prophylaxis -SCDs -Heparin drip transition to Coumadin as above -Pepcid Okay to transfer the patient to [facility]. Need mobilization. PT consulted. Progress Note: Quality VTE Deep Vein Thrombosis/Pulmonary Embolism Present on Admission: No _ (1) CHF (congestive heart failure) Qualifiers: Heart failure type: Heart failure chronicity: (2) Cardiomyopathy Qualifiers: Cardiomyopathy type: (3) Acute kidney failure Qualifiers: Acute renal failure type: (4) Respiratory failure Qualifiers: Chronicity: Respiratory failure complication: (5) Obesity Qualifiers: Obesity type: Obesity classification: adult class 3 (BMI >= 40) Serious obesity comorbidity presence: Body mass index:
--- NOTE | 2018-09-22 18:12 | P.PNNP ---
Subjective Interval history: NO acute complaints, some somnolence earlier but alert now Physical Exam Vital signs: Vital Signs 09/21/18 20:00 09/22/18 00:00 09/22/18 03:55 Temperature 97.4 F L 98.6 F Pulse Rate 98 H 103 H 80 Respiratory Rate 18 19 22 Blood Pressure 100/53 L 88/50 L Pulse Oximetry 98 95 09/22/18 04:00 09/22/18 08:00 09/22/18 10:02 Temperature 97.7 F 97.5 F L Pulse Rate 97 H 86 84 Respiratory Rate 18 22 16 Blood Pressure 129/78 107/57 L Pulse Oximetry 96 100 100 09/22/18 12:00 09/22/18 15:25 09/22/18 15:26 Temperature 97.6 F Pulse Rate 84 84 Respiratory Rate 22 22 Blood Pressure 108/58 L Pulse Oximetry 100 100 Intake & Output 09/21/18 09/22/18 09/22/18 18:59 06:59 18:59 Intake Total 790 / 790 780 / 780 300 / 300 Output Total 2700 / 2700 200 / 200 Balance -1910 / -1910 580 / 580 300 / 300 Weight 141.2 kg Intake: IV 550 / 550 300 / 300 300 / 300 Heparin/D5W 25,000 U/250 mL 25, 250 / 250 000 unit In 250 ml @ Per Protocol IV.CONT TITRATE PRN Rx #:[id number] Zyvox 600 mg Premix 300 ML @ 300 / 300 300 / 300 300 / 300 300 mls/hr IV.SIG Q12H VICKY Rx#: [id number] Oral 240 / 240 480 / 480 Output: Urine 200 / 200 Hemodialysis Amount 2700 / 2700 Other: Date of Last Bowel Movement 09/21/18 09/21/18 09/22/18 # Bowel Movements 2 - Constitutional no acute distress - Routine HEENT Exam Head: Present: normocephalic Eye: Present: EOMI ENT: Present: mucous membranes moist - Routine Neck Exam Present: supple - Routine Respiratory Exam Present: decreased breath sounds - Routine Cardiovascular Exam Present: RRR - Routine Abdominal Exam Present: soft - Routine Extremities Exam Present: edema - Routine Skin Exam Present: intact - Routine Neurological Exam Present: alert, oriented X3 - Detailed Neurological Exam: Coma Scale Eye Opening: Spontaneous Verbal Response: Oriented Motor Response: Obey commands Jordyn Coma Scale Total: 15 - Routine Psychiatric Exam Present: normal affect - Urinary Catheter Management Indwelling Urethral Catheter Cath placed during this visit: yes, but has since been removed by the nurse Reason for continuing: Hourly intake/output Insertion date: 09/08/18 Insertion time: 22:52 Removal date: 09/17/18 Removal time: 09:10 Assessment and Plan - Assessment (1) Acute kidney failure Code(s): N17.9 - Acute kidney failure, unspecified Status: Acute Plan: Baseline renal function is not known. May have renal hypoperfusion. Could have developed contrast nephropathy after CTA. Patient has become dialysis dependent. Patient has been getting dialysis mainly for fluid removal. HD done Sunday Vascath blood flows in 200s. Will order guidewire catheter exchange with IR. On coumadin/heparin with recent PE Continue TTS HD - however HD will be done Sunday with holiday schedule, then Monitor for renal recovery. Monitor urine output. (2) Respiratory failure Code(s): J96.90 - Respiratory failure, unspecified, unspecified whether with hypoxia or hypercapnia Status: Acute Plan: s/p extubation. Patient on nasal cannula O2. (3) Obesity Code(s): E66.9 - Obesity, unspecified Status: Acute Qualifiers: Obesity classification: adult class 3 (BMI >= 40) Plan: patient has obesity-hypoventilation syndrome. (4) Pulmonary embolism Code(s): I26.99 - Other pulmonary embolism without acute cor pulmonale Status : Acute Plan: Started on Coumadin
[2018-09-23] MEDS: Oral Hygiene Kit OROPHARYNG SCH ×3 (03:13→16:45)
[2018-09-23] MEDS: Insulin NovoLIN Regular Correctional Sugar Inj SQ SCH ×5 (04:58→22:11)
[2018-09-23] MEDS: Heparin Drip 25,000 UNIT/250 ML BAG IV.CONT PRN (07:15)
[2018-09-23] MEDS: Chlorhexidine 0.12% Oral Kit 15 ML UDC OROPHARYNG SCH ×2 (08:12→22:11)
[2018-09-23] MEDS: Senna/Docusate Sodium 8.6/50 MG Tablet PO SCH ×2 (09:12→22:01)
[2018-09-23] MEDS: Famotidine PF Inj 20 MG/2 ML Vial IV.PUSH SCH ×2 (09:13→22:02)
[2018-09-23] MEDS: Nystatin 100,000 UNITS/GM Powder 15 GM Bottle TOPICAL SCH ×2 (09:18→22:06)
[2018-09-23] MEDS ORDERED: *Heparin 10,000 UNITS/10 ML Vial Periprocedural ONLY ONE (10:18)
[2018-09-23 10:22] LABS: Hematocrit 38.6 % (35.0-46.0); Hemoglobin 12.8 gm/dL (11.6-15.3); Mean Corpuscular HGB Conc 33.3 % (32.0-36.0); Mean Corpuscular Hemoglobin 26.7 pg (27.0-34.0); Mean Corpuscular Volume 80.1 fL (80.0-100.0); Mean Platelet Volume 8.3 fL (7.0-11.0); Platelet Count 418 th/mm3 (150-450); Red Blood Count 4.81 mil/mm3 (4.00-5.30); Red Cell Distribution Width 17.3 % (11.6-17.2); White Blood Count 7.1 th/mm3 (4.0-11.0)
--- NOTE | 2018-09-23 10:33 | P.RAD ---
Post Procedure Progress Note - Pre Procedure Diagnosis (1) Acute kidney failure - Post Procedure Diagnosis (1) Acute kidney failure - Procedure Information Procedure Date: 09/23/18 Supervising Radiologist: Eddie Lockett MD Anesthesia: General - Plan of Activity Patient to Unit: Nursing Unit Patient Condition: Fair See PACS Report for procedural detail/treatment. [facility] Radiology Procedures right Internal Jugular Hemodialysis Catheter Non-Tunneled Exchange Device: dual lumen
[2018-09-23 10:39] LABS: INR 1.2 Ratio
[2018-09-23 11:00] LABS: Alanine Aminotransferase 28 U/L (10-53); Albumin 3.5 g/dL (3.4-5.0); Alkaline Phosphatase 97 U/L (45-117); Anion Gap 20 meq/L (5-15); Aspartate Aminotransferase 18 U/L (15-37); Blood Urea Nitrogen 66 mg/dL (7-18); Carbon Dioxide 22.8 meq/L (21.0-32.0); Chloride 87 meq/L (98-107); Glomerular Filtration Rate 4 mL/min (>89); Glucose,Random 96 mg/dL (74-106); Potassium 3.5 meq/L (3.5-5.1); Sodium 130 meq/L (136-145); Total Protein 9.7 g/dL (6.4-8.2)
--- NOTE | 2018-09-23 11:54 | P.PNCA ---
Subjective Interval history: Patient denies any CP, pressure, palpitations, dizziness or SOB. Patient does complain of edema and fatigue. Medications and Allergies Allergies Allergy/AdvReac Type Severity Reaction Status Date / Time Penicillins Allergy Hives Verified 09/18/18 00:28 lisinopril AdvReac Severe Anaphylaxis Verified 09/18/18 00:28 Home Medications Medication Instructions Recorded Confirmed Type allopurinol 100 mg PO DAILY 09/11/18 09/11/18 History cyclobenzaprine 5 mg PO TID 09/11/18 09/11/18 History furosemide 40 mg PO DAILY 09/11/18 09/11/18 History hydralazine 50 mg PO Q8HR 09/11/18 09/11/18 History insulin detemir U-100 [Levemir 24 unit SUBCUT Q12HR 09/11/18 09/11/18 History U-100 Insulin] insulin regular human [Novolin R 1 sliding scale dose SUBCUT UD 09/11/18 History Regular U-100 Insuln] levothyroxine 50 mcg PO DAILY 09/11/18 09/11/18 History meloxicam DAILY 09/11/18 History potassium chloride 20 meq PO DAILY 09/11/18 09/11/18 History pravastatin 40 mg PO HS 09/11/18 09/11/18 History pregabalin [Lyrica] 50 mg PO BID 09/11/18 09/11/18 History sertraline 50 mg PO HS 09/11/18 09/11/18 History tramadol 50 mg PO Q6H PRN 09/11/18 09/11/18 History Active Medications: Active Medications Acetaminophen (Tylenol) 650 mg PO Q6H PRN PRN Reason: PAIN 1-5 AND/OR FEVER >101F Last Admin: 09/20/18 23:30 Dose: 650 mg Acetaminophen (Tylenol) 650 mg PO UNSCH PRN PRN Reason: SEE LABEL COMMENTS Hydrocodone Bitart/Acetaminophen ([place] 7.5/325) 1 tab PO Q6H PRN PRN Reason: PAIN 6-10;IF ABLE TO TAKE PO Last Admin: 09/23/18 01:34 Dose: 1 tab Al Hydroxide/Mg Hydroxide (Milk Of Magnesia Liq) 30 ml PO Q12H PRN PRN Reason: Mild Constipation Albuterol (Duoneb Neb (Prn)) 1 ampul NEB Q2HR NEB PRN PRN Reason: WHEEZING Last Admin: 09/14/18 10:45 Dose: 1 ampul Albuterol (Duoneb Neb ([place])) 1 ampul NEB Q6HR NEB [facility] Last Admin: 09/23/18 10:32 Dose: Not Given Bisacodyl (Dulcolax Supp) 10 mg RECTAL DAILY PRN PRN Reason: SEVERE CONSITIPATION Carvedilol (Coreg) 3.125 mg PO BID [facility] Last Admin: 09/23/18 09:12 Dose: 3.125 mg Chlorhexidine Gluconate (Peridex 0.12% Oral Kit) 15 ml OROPHARYNG BID@0800, 2000 [facility] Last Admin: 09/23/18 08:12 Dose: Not Given Clonidine HCl (Catapres) 0.1 mg PO UNSCH PRN PRN Reason: SEE LABEL COMMENTS Cyclobenzaprine HCl (Flexeril) 10 mg PO Q8H PRN PRN Reason: SPASM Last Admin: 09/14/18 18:14 Dose: 10 mg Dextrose (D50w Vial) 50 ml IV.PUSH UNSCH PRN PRN Reason: PER HYPOGLYCEMIA PROTOCOL Diphenhydramine HCl (Benadryl) 25 mg PO UNSCH PRN PRN Reason: SEE LABEL COMMENTS Famotidine (Pepcid Pf Inj) 10 mg IV.PUSH Q12HR [facility] Last Admin: 09/23/18 09:13 Dose: 10 mg Gelatin (Gelfoam 12 Mm/7 Mm Topical) 1 foam TOPICAL PRN PRN PRN Reason: help stop bleeding from site Gentamicin Sulfate (Gentamicin Inj) 20 mg OTHER WITH DIALYSIS PRN PRN Reason: Dwell Gentamycin Lock Last Admin: 09/21/18 15:45 Dose: 20 mg Glucagon (Glucagon Inj) 1 mg OTHER PRN PRN PRN Reason: for Hypoglycemia Protocol Heparin Sodium (Porcine) (Heparin Inj) 8,000 units OTHER WITH DIALYSIS PRN PRN Reason: for machine prime Last Admin: 09/16/18 22:55 Dose: 2,500 units Heparin Sodium (Porcine) (Heparin Inj) 1,000 units OTHER WITH DIALYSIS PRN PRN Reason: Dwell Heparin to Fill Catheter Last Admin: 09/21/18 15:44 Dose: 1,000 units Heparin Sodium/Dextrose (Heparin/D5w 25,000 U/250 Ml) 25,000 unit in 250 mls @ 0 mls/hr IV.CONT TITRATE PRN; Protocol PRN Reason: Per Protocol Last Admin: 09/23/18 07:15 Dose: 16 units/hr, 0.16 mls/hr Albumin Human (Flexbumin 25% Inj) 100 mls @ 60 mls/hr IV.SIG WITH DIALYSIS PRN PRN Reason: hypotension / volume replace Last Infusion: 09/13/18 16:50 Dose: Infused Sodium Chloride (Ns Inj) 1,000 mls @ 0 mls/hr OTHER .Q0M PRN PRN Reason: for prime and rinse back Sodium Chloride (Ns Inj) 1,000 mls @ 200 mls/hr OTHER .Q5H PRN PRN Reason: for dialyzer flush PRN Sodium Chloride (Ns Inj) 1,000 mls @ 0 mls/hr IV.CONT .Q0M PRN PRN Reason: hypotension / volume replace Linezolid (Zyvox 600 Mg Premix) 300 mls @ 300 mls/hr IV.SIG Q12H [facility] Last Admin: 09/23/18 09:12 Dose: 300 mls/hr Insulin Human Regular (Novolin R Correctional Sugar Inj) 0 units SQ Q4HR [facility]; Protocol Last Admin: 09/23/18 08:10 Dose: Not Given Lactulose (Lactulose Liq) 30 ml PO DAILY PRN PRN Reason: SEVERE CONSITIPATION Lactulose (Lactulose Liq) 30 ml PO BID [facility] Last Admin: 09/23/18 09:18 Dose: Not Given Mannitol (Mannitol Inj) 12.5 gm IV.PUSH UNSCH PRN PRN Reason: hypotension / volume replace Miscellaneous Medication () 1 each OROPHARYNG 0000,0400,1200,1600 [facility] Last Admin: 09/23/18 03:13 Dose: Not Given Morphine Sulfate (Morphine Inj) 2 mg IV.PUSH Q2H PRN PRN Reason: PAIN SCALE 6 TO 10 Last Admin: 09/18/18 00:29 Dose: 2 mg Nitroglycerin (Nitrostat Sl) 0.4 mg SL Q5M PRN PRN Reason: CHEST PAIN Nystatin (Mycostatin Powder) 1 applicatio TOPICAL BID [facility] Last Admin: 09/23/18 09:18 Dose: 1 applicatio Ondansetron HCl (Zofran Inj) 4 mg IV.PUSH Q6H PRN PRN Reason: NAUSEA OR VOMITING Pharmacy Profile Note (Coumadin Consult Pharmacy) 1 each OTHER UNSCH PRN PRN Reason: PHARMACY DOCUMENTATION Senna/Docusate Sodium (Nereida-Colace) 1 tab PO BID [facility] Last Admin: 09/23/18 09:12 Dose: 1 tab Sennosides (Senokot) 17.2 mg PO Q12H PRN PRN Reason: Moderate Constipation Sevelamer Carbonate (Renvela) 800 mg PO TIDAC [facility] Last Admin: 09/23/18 09:12 Dose: 800 mg Sodium Chloride (Ns Flush) 2 ml IV.FLUSH BID [facility] Last Admin: 09/23/18 09:14 Dose: 2 ml Sodium Chloride (Ns Flush) 2 ml IV.FLUSH PRN PRN PRN Reason: FLUSH AFTER USING IV ACCESS Sodium Chloride (Ns Flush) 5 ml IV.FLUSH PRN PRN PRN Reason: flush each lumen during HD Warfarin Sodium (Coumadin) 5 mg PO DAILY@1600 [facility] Last Admin: 09/22/18 16:55 Dose: 5 mg Physical Exam Vital signs: Vital Signs 09/22/18 12:00 09/22/18 15:25 09/22/18 15:26 Temperature 97.6 F Pulse Rate 91 H 84 Respiratory Rate 16 22 Blood Pressure 108/58 L Pulse Oximetry 100 100 09/22/18 16:00 09/22/18 20:00 09/22/18 21:25 Temperature 97.9 F 98 F Pulse Rate 90 100 H 90 Respiratory Rate 16 18 16 Blood Pressure 100/63 104/77 Pulse Oximetry 99 94 L 09/23/18 00:00 09/23/18 04:00 09/23/18 04:44 Temperature 98 F 98 F Pulse Rate 96 H 85 85 Respiratory Rate 18 18 14 Blood Pressure 158/66 H 94/54 L Pulse Oximetry 96 93 L 09/23/18 08:00 Temperature 97.8 F Pulse Rate 53 L Respiratory Rate 18 Blood Pressure 122/89 Pulse Oximetry 96 Intake & Output 09/22/18 09/23/18 09/23/18 18:59 06:59 18:59 Intake Total 720 / 720 780 / 780 250 / 250 Output Total 1500 / 1500 Balance -780 / -780 780 / 780 250 / 250 Intake: IV 300 / 300 300 / 300 250 / 250 Heparin/D5W 25,000 U/250 mL 25, 250 / 250 000 unit In 250 ml @ Per Protocol IV.CONT TITRATE PRN Rx #:[id number] Zyvox 600 mg Premix 300 ML @ 300 / 300 300 / 300 300 mls/hr IV.SIG Q12H [facility] Rx#: [id number] Oral 420 / 420 480 / 480 Output: Urine 1500 / 1500 Other: # Voids 3 Date of Last Bowel Movement 09/22/18 09/22/18 # Bowel Movements 0 - Constitutional no acute distress - Routine HEENT Exam Head: Present: normocephalic Eye: Present: PERRL ENT: Present: mucous membranes moist - Routine Neck Exam Present: full ROM - Routine Respiratory Exam Present: CTA bilaterally, distant breath sounds - Routine Cardiovascular Exam Present: S1, S2. Absent: murmur, gallop, rubs - Routine Abdominal Exam Present: normoactive bowel sounds - Routine Extremities Exam Present: edema, full ROM, pulses intact, normal capillary refill. Absent: cyanosis, clubbing - Routine Skin Exam Present: intact - Routine Neurological Exam Present: oriented X3 - Detailed Neurological Exam: Coma Scale Eye Opening: To sound Verbal Response: Oriented Motor Response: Obey commands Jordyn Coma Scale Total: 14 - Routine Psychiatric Exam Present: unable to assess - Urinary Catheter Management Indwelling Urethral Catheter Cath placed during this visit: yes, but has since been removed by the nurse Reason for continuing: Hourly intake/output Insertion date: 09/08/18 Insertion time: 22:52 Removal date: 09/17/18 Removal time: 09:10 Results 09/23/18 08:27 09/23/18 08:27 Cardiac Enzymes 09/23/18 Range/Units 08:27 AST 18 (15-37) U/L Coagulation 09/21/18 09/22/18 09/22/18 Range/Units 14:59 09:52 17:00 PT 11.2 (9.8-11.6) sec APTT 40.9 H 61.1 H D 53.6 H (23.4-31.7) sec 09/23/18 09/23/18 Range/Units 08:27 08:27 PT 12.0 H (9.8-11.6) sec APTT 65.5 H D (23.4-31.7) sec CBC 09/22/18 09/23/18 Range/Units 09:52 08:27 WBC 9.0 7.1 (4.0-11.0) th/mm3 RBC 4.89 4.81 (4.00-5.30) mil/mm3 Hgb 13.1 12.8 (11.6-15.3) gm/dL Hct 40.0 38.6 (35.0-46.0) % Plt Count 419 418 (150-450) th/mm3 Comprehensive Metabolic Panel 09/22/18 09/23/18 Range/Units 09:52 08:27 Sodium 129 L 130 L (136-145) meq/L Potassium 3.6 3.5 (3.5-5.1) meq/L Chloride 89 L 87 L (98-107) meq/L Carbon Dioxide 22.7 22.8 (21.0-32.0) meq/L BUN 50 H 66 H (7-18) mg/dL Creatinine 9.05 H 10.41 H* D (0.50-1.00) mg/dL Calcium 9.9 10.0 (8.5-10.1) mg/dL AST 18 (15-37) U/L ALT 28 (10-53) U/L Alkaline Phosphatase 97 (45-117) U/L Total Protein 9.7 H (6.4-8.2) g/dL Albumin 3.5 (3.4-5.0) g/dL Intake and Output 09/22/18 09/23/18 09/23/18 22:59 06:59 14:59 Intake Total 720 / 720 480 / 480 250 / 250 Output Total 1500 / 1500 Balance -780 / -780 480 / 480 250 / 250 Intake: IV 300 / 300 250 / 250 Heparin/D5W 25,000 U/250 mL 25, 250 / 250 000 unit In 250 ml @ Per Protocol IV.CONT TITRATE PRN Rx #:[id number] Zyvox 600 mg Premix 300 ML @ 300 / 300 300 mls/hr IV.SIG Q12H [facility] Rx#: [id number] Oral 420 / 420 480 / 480 Output: Urine 1500 / 1500 Other: # Voids 3 Date of Last Bowel Movement 09/22/18 # Bowel Movements 0 Assessment and Plan - Assessment (1) CHF (congestive heart failure) Code(s): I50.9 - Heart failure, unspecified Status: Acute (2) Cardiomyopathy Code(s): I42.9 - Cardiomyopathy, unspecified Status: Acute (3) Acute kidney failure Code(s): N17.9 - Acute kidney failure, unspecified Status: Acute (4) Respiratory failure Code(s): J96.90 - Respiratory failure, unspecified, unspecified whether with hypoxia or hypercapnia Status: Acute (5) Obesity Code(s): E66.9 - Obesity, unspecified Status: Acute - Plan We will continue with current plan for CHF and adjust as needed. Titrate carvedilol as tolerated. Continue HD, renal evaluation in progress. Continue to increase activity as patient tolerates, recommend PT. Continue to monitor patient on telemetry. We will continue to monitor patient during hospitalization. The patient was seen and evaluated by Dr. Law who participated in care, management and decision making. - Attending Attestation Patient seen and examined. I reviewed and agree with the evaluation and plan as presented. Continue and titrate tx for CHF. Increase activity, PT. (5) Obesity Qualifiers: Obesity classification: adult class 3 (BMI >= 40)
--- NOTE | 2018-09-23 12:35 | P.PN ---
Subjective Interval history: ALERT NAD Physical Exam Vital signs: Vital Signs 09/22/18 15:25 09/22/18 15:26 09/22/18 16:00 Temperature 97.9 F Pulse Rate 84 90 Respiratory Rate 22 16 Blood Pressure 100/63 Pulse Oximetry 100 99 09/22/18 20:00 09/22/18 21:25 09/23/18 00:00 Temperature 98 F 98 F Pulse Rate 100 H 90 96 H Respiratory Rate 18 16 18 Blood Pressure 104/77 158/66 H Pulse Oximetry 94 L 96 09/23/18 04:00 09/23/18 04:44 09/23/18 08:00 Temperature 98 F 97.8 F Pulse Rate 85 85 53 L Respiratory Rate 18 14 18 Blood Pressure 94/54 L 122/89 Pulse Oximetry 93 L 96 Intake & Output 09/22/18 09/23/18 09/23/18 18:59 06:59 18:59 Intake Total 720 / 720 780 / 780 550 / 550 Output Total 1500 / 1500 Balance -780 / -780 780 / 780 550 / 550 Intake: IV 300 / 300 300 / 300 550 / 550 Heparin/D5W 25,000 U/250 mL 25, 250 / 250 000 unit In 250 ml @ Per Protocol IV.CONT TITRATE PRN Rx #:[id number] Zyvox 600 mg Premix 300 ML @ 300 / 300 300 / 300 300 / 300 300 mls/hr IV.SIG Q12H [facility] Rx#: [id number] Oral 420 / 420 480 / 480 Output: Urine 1500 / 1500 Other: # Voids 3 Date of Last Bowel Movement 09/22/18 09/22/18 # Bowel Movements 0 Narrative: GENERAL: Lethargic, morbidly obese. NECK: Supple, trachea midline. VasCath. CARDIOVASCULAR: Regular rate and rhythm. RESPIRATORY: Limited exam due to body habitus. Clear anteriorly. GASTROINTESTINAL: Abdomen soft, obese ,non-tender. MUSCULOSKELETAL: generalized edema. - Urinary Catheter Management Indwelling Urethral Catheter Cath placed during this visit: yes, but has since been removed by the nurse Reason for continuing: Hourly intake/output Insertion date: 09/08/18 Insertion time: 22:52 Removal date: 09/17/18 Removal time: 09:10 Results - Labs CBC & Chem 7: 09/23/18 08:27 09/23/18 08:27 Laboratory Results - last 24 hr 09/22/18 09/22/18 09/22/18 16:59 17:00 21:15 WBC RBC Hgb Hct MCV MCH MCHC RDW Plt Count MPV PT INR APTT 53.6 H Sodium Potassium Chloride Carbon Dioxide Anion Gap BUN Creatinine Estimated GFR POC Glucose 98 116 H Random Glucose Calcium Total Bilirubin AST ALT Alkaline Phosphatase Total Protein Albumin 09/23/18 09/23/18 09/23/18 05:40 07:24 08:27 WBC 7.1 RBC 4.81 Hgb 12.8 Hct 38.6 MCV 80.1 MCH 26.7 L MCHC 33.3 RDW 17.3 H Plt Count 418 MPV 8.3 PT INR APTT Sodium Potassium Chloride Carbon Dioxide Anion Gap BUN Creatinine Estimated GFR POC Glucose 120 H 107 Random Glucose Calcium Total Bilirubin AST ALT Alkaline Phosphatase Total Protein Albumin 09/23/18 09/23/18 09/23/18 08:27 08:27 08:27 WBC RBC Hgb Hct MCV MCH MCHC RDW Plt Count MPV PT 12.0 H INR 1.2 APTT 65.5 H D Sodium 130 L Potassium 3.5 Chloride 87 L Carbon Dioxide 22.8 Anion Gap 20 H BUN 66 H Creatinine 10.41 H* D Estimated GFR 4 L POC Glucose Random Glucose 96 Calcium 10.0 Total Bilirubin 0.4 AST 18 ALT 28 Alkaline Phosphatase 97 Total Protein 9.7 H Albumin 3.5 09/23/18 12:26 WBC RBC Hgb Hct MCV MCH MCHC RDW Plt Count MPV PT INR APTT Sodium Potassium Chloride Carbon Dioxide Anion Gap BUN Creatinine Estimated GFR POC Glucose 127 H Random Glucose Calcium Total Bilirubin AST ALT Alkaline Phosphatase Total Protein Albumin Assessment and Plan - Plan RESPIRATORY FAILURE PNA MORBID OBEITY PLAN O2 NEEDED ANTIBX INCREASE ACTIVITY
--- NOTE | 2018-09-23 12:38 | P.PNNP ---
Subjective Interval history: Patient was seen, no distress, no complaints. Patient is getting dialysis today. <Venkatesh Bernal - Last Filed: 09/23/18 12:38> Physical Exam Vital signs: Vital Signs 09/22/18 15:25 09/22/18 15:26 09/22/18 16:00 Temperature 97.9 F Pulse Rate 84 90 Respiratory Rate 22 16 Blood Pressure 100/63 Pulse Oximetry 100 99 09/22/18 20:00 09/22/18 21:25 09/23/18 00:00 Temperature 98 F 98 F Pulse Rate 100 H 90 96 H Respiratory Rate 18 16 18 Blood Pressure 104/77 158/66 H Pulse Oximetry 94 L 96 09/23/18 04:00 09/23/18 04:44 09/23/18 08:00 Temperature 98 F 97.8 F Pulse Rate 85 85 53 L Respiratory Rate 18 14 18 Blood Pressure 94/54 L 122/89 Pulse Oximetry 93 L 96 Intake & Output 09/22/18 09/23/18 09/23/18 18:59 06:59 18:59 Intake Total 720 / 720 780 / 780 550 / 550 Output Total 1500 / 1500 Balance -780 / -780 780 / 780 550 / 550 Intake: IV 300 / 300 300 / 300 550 / 550 Heparin/D5W 25,000 U/250 mL 25, 250 / 250 000 unit In 250 ml @ Per Protocol IV.CONT TITRATE PRN Rx #:[id number] Zyvox 600 mg Premix 300 ML @ 300 / 300 300 / 300 300 / 300 300 mls/hr IV.SIG Q12H [facility] Rx#: [id number] Oral 420 / 420 480 / 480 Output: Urine 1500 / 1500 Other: # Voids 3 Date of Last Bowel Movement 09/22/18 09/22/18 # Bowel Movements 0 - Constitutional no acute distress, obese - Routine HEENT Exam Head: Present: normocephalic Eye: Present: EOMI ENT: Present: mucous membranes moist - Routine Respiratory Exam Present: decreased breath sounds. Absent: accessory muscle use, respiratory distress - Routine Cardiovascular Exam Present: RRR - Routine Neurological Exam Present: oriented X3 - Urinary Catheter Management Indwelling Urethral Catheter Cath placed during this visit: yes, but has since been removed by the nurse Reason for continuing: Hourly intake/output Insertion date: 09/08/18 Insertion time: 22:52 Removal date: 09/17/18 Removal time: 09:10 <Venkatesh Bernal - Last Filed: 09/23/18 12:38> Vital signs: Vital Signs 09/23/18 08:00 09/23/18 12:00 09/23/18 16:00 Temperature 97.8 F 97.6 F 99.0 F Pulse Rate 99 H 87 91 H Respiratory Rate 18 18 18 Blood Pressure 122/89 109/61 124/74 Pulse Oximetry 96 97 95 09/23/18 19:45 09/23/18 20:00 09/23/18 20:42 Temperature 96.7 F L Pulse Rate 88 81 88 Respiratory Rate 18 16 Blood Pressure 104/68 Pulse Oximetry 97 98 09/24/18 00:00 09/24/18 03:55 09/24/18 04:00 Temperature 98.1 F 98.3 F Pulse Rate 93 H 77 83 Respiratory Rate 17 18 18 Blood Pressure 125/50 L 95/54 L Pulse Oximetry 98 99 100 Intake & Output 09/23/18 09/24/18 09/24/18 18:59 06:59 18:59 Intake Total 650 / 650 780 / 780 Output Total 1500 / 1500 Balance 650 / 650 -720 / -720 Weight 141.2 kg Intake: IV 650 / 650 300 / 300 Heparin/D5W 25,000 U/250 mL 25, 250 / 250 000 unit In 250 ml @ Per Protocol IV.CONT TITRATE PRN Rx #:[id number] Flexbumin 25% Inj 100 ML @ 60 100 / 100 mls/hr IV.SIG WITH DIALYSIS PRN Rx#:[id number] Zyvox 600 mg Premix 300 ML @ 300 / 300 300 / 300 300 mls/hr IV.SIG Q12H [facility] Rx#: [id number] Oral 0 / 0 480 / 480 Output: Hemodialysis Amount 1500 / 1500 Other: # Voids 1 0 # Bowel Movements 1 - Urinary Catheter Management Indwelling Urethral Catheter Cath placed during this visit: no <Chris Majano - Last Filed: 09/24/18 07:53> Assessment and Plan - Assessment (1) Acute kidney failure Code(s): N17.9 - Acute kidney failure, unspecified Status: Acute Plan: Baseline renal function is not known. May have renal hypoperfusion. Could have developed contrast nephropathy after CTA. Patient has become dialysis dependent. Patient getting HD TTS. Patient to be dialyzed today due to holiday schedule, then . Had right Internal Jugular Hemodialysis Catheter Non-Tunneled Exchange today. Monitor for renal recovery. Monitor urine output. (2) Respiratory failure Code(s): J96.90 - Respiratory failure, unspecified, unspecified whether with hypoxia or hypercapnia Status: Acute Plan: s/p extubation. Patient on nasal cannula O2. (3) Obesity Code(s): E66.9 - Obesity, unspecified Status: Acute Qualifiers: Obesity classification: adult class 3 (BMI >= 40) Plan: patient has obesity-hypoventilation syndrome. (4) Pulmonary embolism Code(s): I26.99 - Other pulmonary embolism without acute cor pulmonale Status : Acute Plan: On Heparin/Coumadin. <Venkatesh Bernal - Last Filed: 09/23/18 12:38> - Assessment (1) Acute kidney failure Code(s): N17.9 - Acute kidney failure, unspecified Status: Acute (2) Respiratory failure Code(s): J96.90 - Respiratory failure, unspecified, unspecified whether with hypoxia or hypercapnia Status: Acute (3) Obesity Code(s): E66.9 - Obesity, unspecified Status: Acute Qualifiers: Obesity classification: adult class 3 (BMI >= 40) (4) Pulmonary embolism Code(s): I26.99 - Other pulmonary embolism without acute cor pulmonale Status : Acute - Attending Attestation patient was seen and examined. Agree with above assessment and plan. <Chris Majano - Last Filed: 09/24/18 07:53>
--- NOTE | 2018-09-23 13:55 | P.PNIM ---
Subjective Interval history: Patient had Vas-Cath exchange today. She is awake and alert today. Physical Exam Vital signs: Last Vital Signs Temp 97.8 F 09/23/18 08:00 Pulse 53 L 09/23/18 08:00 Resp 18 09/23/18 08:00 BP 122/89 09/23/18 08:00 Pulse Ox 96 09/23/18 08:00 Intake & Output 09/21/18 09/22/18 09/23/18 09/24/18 06:59 06:59 06:59 06:59 Intake Total 1530 / 1530 1570 / 1570 1500 / 1500 550 / 550 Output Total 0 / 0 2900 / 2900 1500 / 1500 Balance 1530 / 1530 -1330 / -1330 0 / 0 550 / 550 Weight 144.1 kg 141.2 kg Narrative: GENERAL: Awake and alert, morbidly obese. NECK: Supple, trachea midline. VasCath. CARDIOVASCULAR: Regular rate and rhythm. RESPIRATORY: Limited exam due to body habitus. Clear anteriorly. GASTROINTESTINAL: Abdomen soft, obese ,non-tender. MUSCULOSKELETAL: generalized edema. Urinary Catheter Management Indwelling Urethral Catheter: Cath placed during this visit: yes, but has since been removed by the nurse Insertion date: 09/08/18 Insertion time: 22:52 Removal date: 09/17/18 Removal time: 09:10 Results Labs CBC & Chem 7: 09/23/18 08:27 09/23/18 08:27 Assessment and Plan (1) CHF (congestive heart failure): Code(s): I50.9 - Heart failure, unspecified Status: Acute (2) Cardiomyopathy: Code(s): I42.9 - Cardiomyopathy, unspecified Status: Acute (3) Acute kidney failure: Code(s): N17.9 - Acute kidney failure, unspecified Status: Acute (4) Respiratory failure: Code(s): J96.90 - Respiratory failure, unspecified, unspecified whether with hypoxia or hypercapnia Status: Acute (5) Obesity: Code(s): E66.9 - Obesity, unspecified Status: Acute Plan 47-year-old morbidly obese female was brought in emergently department by EMS due to respiratory failure and unresponsiveness. She was brought in being bagged by BV. Patient was a GCS of 3 upon arrival and hence in no condition to give any history. As per EMS the call went out as shortness of breath while patient got into the car. When they arrived she was in severe respiratory distress. They put her on BiPAP but shortly patient started to lose consciousness with agonal respirations. Family was at the scene and informed EMS that she has history of congestive heart failure. Patient was tachycardic upon arrival with heart rate in 170s. It appeared to be irregularly irregular on the monitor. She was immediately intubated by ED attending with improvement in her heart rate. Patient has been on the critical care service. She stabilized and transferred to the hospitalist service. Acute hypoxemic respiratory failure: Improving Extubated 09/16/2018, maintaining airway, maintaining oxygen saturation about 99% on NC 4L Bronchodilators, CTA chest: Very limited examination due to patient body habitus. Elongated filling defect in the right pulmonary artery suspicious for PE. Moderate-sized area consolidation of right lower lobe. Bilateral dependent lower lobe atelectasis. Pulmonary edema improved Continue Heparin drip. Monitor PTT per protocol. Bridging to Coumadin. Pharmacy consulted Broad-spectrum antibiotics with Zosyn, Zyvox. Continue scheduled and as needed breathing treatments. EzPAP, Acapella Acute systolic heart failure/Pulmonary edema Started on milrinone 09/13/2018 to maintain cardiac index more than 2.2. Discontinued 09/18/2018 Echo 09/09: Technically difficult study making assessment of left ventricular function and wall motion. Suboptimal. Grossly, left ventricular function appears severely reduced. probable global hypokinesis. Repeat limited echo 09/17/2018, very poor windows difficult to interpret Cardiology Dr. Law following. Continue fluid removal with hemodialysis Acute kidney failure, anuric on hemodialysis now Monitor renal function, I/O's, avoid nephrotoxins. Fluid removal with hemodialysis started 09/12/[address] Majano. Scheduled hemodialysis Alt days US abdomen: No masses or hydronephrosis, enlarged liver likely due to fatty infiltration. Free water restriction due to hyponatremia Continue hemodialysis per nephrology. Monitor for renal recovery. Probable pneumonia/Sepsis Continue abx (continue Zosyn, discontinued vancomycin 09/11/2018) monitor for signs of infections ( fever, WBC) Started Zyvox due to increase in WBC count Strep pneumonia and Legionella urinary Ag negative 09/09 Blood, sputum and urine cx: All negative to date Acute pulmonary embolism Paroxysmal atrial fibrillation Monitor CBC, coags- on Heparin drip. Coumadin started. INR remains low at 1.2. Increase to 7.5 mg. Follow-up INR Obesity hypoventilation syndrome Mild elevated trop Leukocytosis Elevated AST Morbid obesity DVT GI prophylaxis -SCDs -Heparin drip transition to Coumadin as above -Pepcid Progress Note: Quality VTE Deep Vein Thrombosis/Pulmonary Embolism Present on Admission: No _ (1) Acute kidney failure Qualifiers: Acute renal failure type: (2) CHF (congestive heart failure) Qualifiers: Heart failure chronicity: Heart failure type: (3) Respiratory failure Qualifiers: Chronicity: Respiratory failure complication: (4) Cardiomyopathy Qualifiers: Cardiomyopathy type: (5) Obesity Qualifiers: Body mass index: Obesity classification: adult class 3 (BMI >= 40) Obesity type: Serious obesity comorbidity presence:
[2018-09-23] MEDS: Albumin Human 25% Inj 100 ML IV.SIG PRN (15:30)
[2018-09-23] MEDS: Heparin 10,000 UNITS/10 ML Vial (for IV use) OTHER PRN (17:00)
[2018-09-24] MEDS: Insulin NovoLIN Regular Correctional Sugar Inj SQ SCH ×6 (01:09→20:31)
[2018-09-24] MEDS: Oral Hygiene Kit OROPHARYNG SCH ×4 (01:10→16:03)
[2018-09-24] MEDS: Heparin Drip 25,000 UNIT/250 ML BAG IV.CONT PRN ×2 (01:12→20:28)
[2018-09-24 07:34] LABS: Hematocrit 36.6 % (35.0-46.0); Mean Corpuscular HGB Conc 32.7 % (32.0-36.0); Mean Corpuscular Hemoglobin 26.5 pg (27.0-34.0); Mean Corpuscular Volume 81.1 fL (80.0-100.0); Mean Platelet Volume 8.2 fL (7.0-11.0); Platelet Count 393 th/mm3 (150-450); Red Blood Count 4.51 mil/mm3 (4.00-5.30); White Blood Count 5.8 th/mm3 (4.0-11.0)
[2018-09-24 07:35] LABS: INR 1.3 Ratio; Prothrombin Time 13.2 sec (9.8-11.6)
[2018-09-24 08:04] LABS: Alanine Aminotransferase 26 U/L (10-53); Albumin 3.7 g/dL (3.4-5.0); Alkaline Phosphatase 88 U/L (45-117); Anion Gap 13 meq/L (5-15); Aspartate Aminotransferase 20 U/L (15-37); Blood Urea Nitrogen 42 mg/dL (7-18); Calcium 9.6 mg/dL (8.5-10.1); Carbon Dioxide 26.6 meq/L (21.0-32.0); Chloride 93 meq/L (98-107); Glomerular Filtration Rate 6 mL/min (>89); Glucose,Random 91 mg/dL (74-106); Potassium 3.6 meq/L (3.5-5.1); Sodium 133 meq/L (136-145); Total Protein 9.4 g/dL (6.4-8.2)
[2018-09-24] MEDS: Chlorhexidine 0.12% Oral Kit 15 ML UDC OROPHARYNG SCH ×2 (08:35→20:32)
[2018-09-24] MEDS: Famotidine PF Inj 20 MG/2 ML Vial IV.PUSH SCH ×2 (08:37→20:35)
[2018-09-24] MEDS: Senna/Docusate Sodium 8.6/50 MG Tablet PO SCH ×2 (08:38→20:35)
[2018-09-24] MEDS: Nystatin 100,000 UNITS/GM Powder 15 GM Bottle TOPICAL SCH ×2 (08:38→20:36)
--- NOTE | 2018-09-24 11:36 | P.PNNP ---
Subjective Interval history: patient is comfortable. She reports that she made only a few drops of urine yesterday. To have dialysis tomorrow. Physical Exam Vital signs: Vital Signs 09/23/18 12:00 09/23/18 16:00 09/23/18 19:45 Temperature 97.6 F 99.0 F Pulse Rate 87 91 H 88 Respiratory Rate 18 18 Blood Pressure 109/61 124/74 Pulse Oximetry 97 95 09/23/18 20:00 09/23/18 20:42 09/24/18 00:00 Temperature 96.7 F L 98.1 F Pulse Rate 81 88 93 H Respiratory Rate 18 16 17 Blood Pressure 104/68 125/50 L Pulse Oximetry 97 98 98 09/24/18 03:55 09/24/18 04:00 09/24/18 08:00 Temperature 98.3 F 98.2 F Pulse Rate 77 83 94 H Respiratory Rate 18 18 16 Blood Pressure 95/54 L 119/51 L Pulse Oximetry 99 100 95 09/24/18 09:00 09/24/18 11:07 Temperature Pulse Rate 88 Respiratory Rate 16 Blood Pressure Pulse Oximetry 97 Intake & Output 09/23/18 09/24/18 09/24/18 18:59 06:59 18:59 Intake Total 650 / 650 780 / 780 300 / 300 Output Total 1500 / 1500 Balance 650 / 650 -720 / -720 300 / 300 Weight 141.2 kg Intake: IV 650 / 650 300 / 300 300 / 300 Heparin/D5W 25,000 U/250 mL 25, 250 / 250 000 unit In 250 ml @ Per Protocol IV.CONT TITRATE PRN Rx #:[id number] Flexbumin 25% Inj 100 ML @ 60 100 / 100 mls/hr IV.SIG WITH DIALYSIS PRN Rx#:[id number] Zyvox 600 mg Premix 300 ML @ 300 / 300 300 / 300 300 / 300 300 mls/hr IV.SIG Q12H VICKY Rx#: [id number] Oral 0 / 0 480 / 480 Output: Hemodialysis Amount 1500 / 1500 Other: # Voids 1 0 # Bowel Movements 1 Narrative: GENERAL: Awake and alert, morbidly obese. NECK: Supple, trachea midline. VasCath. CARDIOVASCULAR: Regular rate and rhythm. RESPIRATORY: Limited exam due to body habitus. Clear anteriorly. GASTROINTESTINAL: Abdomen soft, obese ,non-tender. MUSCULOSKELETAL: generalized edema. - Urinary Catheter Management Indwelling Urethral Catheter Cath placed during this visit: yes, but has since been removed by the nurse Reason for continuing: Hourly intake/output Insertion date: 09/08/18 Insertion time: 22:52 Removal date: 09/17/18 Removal time: 09:10 Assessment and Plan - Assessment (1) Acute kidney failure Code(s): N17.9 - Acute kidney failure, unspecified Status: Acute Plan: Baseline renal function is not known. Could have developed contrast nephropathy after CTA. Has suffered ATN. Patient has become dialysis dependent. Repeat labs tomorrow, may need to dialyze her tomorrow as she is not making much urine. Had right Internal Jugular Hemodialysis Catheter Non-Tunneled Exchange today. Monitor for renal recovery. Monitor urine output. (2) Respiratory failure Code(s): J96.90 - Respiratory failure, unspecified, unspecified whether with hypoxia or hypercapnia Status: Acute Plan: resolved. (3) Obesity Code(s): E66.9 - Obesity, unspecified Status: Acute Qualifiers: Obesity classification: adult class 3 (BMI >= 40) Plan: patient has obesity-hypoventilation syndrome. (4) Pulmonary embolism Code(s): I26.99 - Other pulmonary embolism without acute cor pulmonale Status : Acute Plan: On Heparin/Coumadin.
--- NOTE | 2018-09-24 13:44 | P.PNIM ---
Subjective Interval history: Shunt is sitting up in bed. She reports she is feeling better overall. No new complaints. Physical Exam Vital signs: Last Vital Signs Temp 98.2 F 09/24/18 08:00 Pulse 88 09/24/18 09:00 Resp 16 09/24/18 09:00 BP 119/51 L 09/24/18 08:00 Pulse Ox 97 09/24/18 11:07 Intake & Output 09/22/18 09/23/18 09/24/18 09/25/18 06:59 06:59 06:59 06:59 Intake Total 1570 / 1570 1500 / 1500 1430 / 1430 300 / 300 Output Total 2900 / 2900 1500 / 1500 1500 / 1500 Balance -1330 / -1330 0 / 0 -70 / -70 300 / 300 Weight 141.2 kg 141.2 kg Narrative: GENERAL: Awake and alert, morbidly obese. NECK: Supple, trachea midline. VasCath. CARDIOVASCULAR: Regular rate and rhythm. RESPIRATORY: Clear to auscultation bilaterally. GASTROINTESTINAL: Abdomen soft, obese ,non-tender. MUSCULOSKELETAL: generalized edema. Urinary Catheter Management Indwelling Urethral Catheter: Cath placed during this visit: yes, but has since been removed by the nurse Insertion date: 09/08/18 Insertion time: 22:52 Removal date: 09/17/18 Removal time: 09:10 Results Labs CBC & Chem 7: 09/24/18 05:57 09/24/18 05:57 Assessment and Plan (1) CHF (congestive heart failure): Code(s): I50.9 - Heart failure, unspecified Status: Acute (2) Cardiomyopathy: Code(s): I42.9 - Cardiomyopathy, unspecified Status: Acute (3) Acute kidney failure: Code(s): N17.9 - Acute kidney failure, unspecified Status: Acute (4) Respiratory failure: Code(s): J96.90 - Respiratory failure, unspecified, unspecified whether with hypoxia or hypercapnia Status: Acute (5) Obesity: Code(s): E66.9 - Obesity, unspecified Status: Acute Plan 47-year-old morbidly obese female was brought in emergently department by EMS due to respiratory failure and unresponsiveness. She was brought in being bagged by BV. Patient was a GCS of 3 upon arrival and hence in no condition to give any history. As per EMS the call went out as shortness of breath while patient got into the car. When they arrived she was in severe respiratory distress. They put her on BiPAP but shortly patient started to lose consciousness with agonal respirations. Family was at the scene and informed EMS that she has history of congestive heart failure. Patient was tachycardic upon arrival with heart rate in 170s. It appeared to be irregularly irregular on the monitor. She was immediately intubated by ED attending with improvement in her heart rate. Patient has been on the critical care service. She stabilized and transferred to the hospitalist service. Acute hypoxemic respiratory failure: Improving Extubated 09/16/2018, maintaining airway, maintaining oxygen saturation about 99% on NC 4L Bronchodilators, CTA chest: Very limited examination due to patient body habitus. Elongated filling defect in the right pulmonary artery suspicious for PE. Moderate-sized area consolidation of right lower lobe. Bilateral dependent lower lobe atelectasis. Pulmonary edema improved Continue Heparin drip. Monitor PTT per protocol. Bridging to Coumadin. INR is still subtherapeutic. Broad-spectrum antibiotics with Zosyn, Zyvox. Continue scheduled and as needed breathing treatments. EzPAP, Acapella Acute systolic heart failure/Pulmonary edema Started on milrinone 09/13/2018 to maintain cardiac index more than 2.2. Discontinued 09/18/2018 Echo 09/09: Technically difficult study making assessment of left ventricular function and wall motion. Suboptimal. Grossly, left ventricular function appears severely reduced. probable global hypokinesis. Repeat limited echo 09/17/2018, very poor windows difficult to interpret Cardiology Dr. Law following. Continue fluid removal with hemodialysis Acute kidney failure, anuric on hemodialysis now Monitor renal function, I/O's, avoid nephrotoxins. Fluid removal with hemodialysis started 09/12/[address] Maajno. Scheduled hemodialysis Alt days US abdomen: No masses or hydronephrosis, enlarged liver likely due to fatty infiltration. Free water restriction due to hyponatremia Continue hemodialysis per nephrology. Monitor for renal recovery. Probable pneumonia/Sepsis Continue abx (continue Zosyn, discontinued vancomycin 09/11/2018) monitor for signs of infections ( fever, WBC) Started Zyvox due to increase in WBC count Strep pneumonia and Legionella urinary Ag negative 09/09 Blood, sputum and urine cx: All negative to date Acute pulmonary embolism Paroxysmal atrial fibrillation Monitor CBC, coags- on Heparin drip. Coumadin started. INR 1.3 today. Coumadin dose increased yesterday to 7.5 mg. Follow-up INR in a.m. DVT GI prophylaxis -SCDs -Heparin drip transition to Coumadin as above -Pepcid Progress Note: Quality VTE Deep Vein Thrombosis/Pulmonary Embolism Present on Admission: No _ (1) CHF (congestive heart failure) Qualifiers: Heart failure type: Heart failure chronicity: (2) Cardiomyopathy Qualifiers: Cardiomyopathy type: (3) Acute kidney failure Qualifiers: Acute renal failure type: (4) Respiratory failure Qualifiers: Chronicity: Respiratory failure complication: (5) Obesity Qualifiers: Obesity type: Obesity classification: adult class 3 (BMI >= 40) Serious obesity comorbidity presence: Body mass index:
[2018-09-25] MEDS: Insulin NovoLIN Regular Correctional Sugar Inj SQ SCH ×6 (02:34→21:14)
[2018-09-25] MEDS: Oral Hygiene Kit OROPHARYNG SCH ×4 (02:35→17:53)
[2018-09-25 06:01] LABS: Hematocrit 38.7 % (35.0-46.0); Hemoglobin 12.4 gm/dL (11.6-15.3); Mean Corpuscular Hemoglobin 26.2 pg (27.0-34.0); Mean Corpuscular Volume 81.8 fL (80.0-100.0); Mean Platelet Volume 8.1 fL (7.0-11.0); Platelet Count 417 th/mm3 (150-450); Red Blood Count 4.73 mil/mm3 (4.00-5.30); Red Cell Distribution Width 17.2 % (11.6-17.2)
[2018-09-25 06:10] LABS: INR 1.6 Ratio; Prothrombin Time 15.7 sec (9.8-11.6)
[2018-09-25 06:38] LABS: Alanine Aminotransferase 24 U/L (10-53); Albumin 3.8 g/dL (3.4-5.0); Alkaline Phosphatase 93 U/L (45-117); Anion Gap 18 meq/L (5-15); Aspartate Aminotransferase 17 U/L (15-37); Blood Urea Nitrogen 60 mg/dL (7-18); Calcium 9.5 mg/dL (8.5-10.1); Carbon Dioxide 25.3 meq/L (21.0-32.0); Chloride 92 meq/L (98-107); Glomerular Filtration Rate 4 mL/min (>89); Glucose,Random 88 mg/dL (74-106); Phosphorus 8.7 mg/dL (2.5-4.9); Potassium 3.9 meq/L (3.5-5.1); Sodium 135 meq/L (136-145); Total Protein 9.5 g/dL (6.4-8.2)
[2018-09-25] MEDS: Chlorhexidine 0.12% Oral Kit 15 ML UDC OROPHARYNG SCH ×2 (10:14→21:10)
[2018-09-25] MEDS: Senna/Docusate Sodium 8.6/50 MG Tablet PO SCH ×2 (10:15→21:08)
[2018-09-25] MEDS: Famotidine PF Inj 20 MG/2 ML Vial IV.PUSH SCH ×2 (10:15→21:09)
[2018-09-25] MEDS: Nystatin 100,000 UNITS/GM Powder 15 GM Bottle TOPICAL SCH ×2 (10:16→21:10)
--- NOTE | 2018-09-25 11:19 | P.PNNP ---
Subjective Interval history: Patient was seen, no distress, appeared lethargic. Patient to be dialyzed today, Creatinine is 9.70. Patient stated she is only making drops of urine. <Venkatesh Bernal - Last Filed: 09/25/18 11:20> Physical Exam Vital signs: Vital Signs 09/24/18 12:00 09/24/18 16:00 09/24/18 19:50 Temperature 97.7 F 97.8 F Pulse Rate 88 88 92 H Respiratory Rate 16 18 19 Blood Pressure 107/65 108/60 Pulse Oximetry 92 L 94 L 97 09/24/18 20:00 09/25/18 00:00 09/25/18 03:00 Temperature 98.3 F 98.1 F Pulse Rate 91 H 121 H 80 Respiratory Rate 17 18 20 Blood Pressure 115/63 102/66 Pulse Oximetry 94 L 100 09/25/18 04:00 09/25/18 08:00 09/25/18 09:30 Temperature 98.5 F 98.2 F Pulse Rate 90 93 H Respiratory Rate 18 17 Blood Pressure 100/57 L 108/61 Pulse Oximetry 96 94 L 95 Intake & Output 09/24/18 09/25/18 09/25/18 18:59 06:59 18:59 Intake Total 300 / 300 670 / 670 Balance 300 / 300 670 / 670 Weight 157.5 kg Intake: IV 300 / 300 550 / 550 Heparin/D5W 25,000 U/250 mL 25, 250 / 250 000 unit In 250 ml @ Per Protocol IV.CONT TITRATE PRN Rx #:[id number] Zyvox 600 mg Premix 300 ML @ 300 / 300 300 / 300 300 mls/hr IV.SIG Q12H VICKY Rx#: [id number] Oral 120 / 120 Other: # Voids 0 Narrative: GENERAL: Awake and alert, morbidly obese. NECK: Supple, trachea midline. VasCath. CARDIOVASCULAR: Regular rate and rhythm. RESPIRATORY: Clear to auscultation bilaterally. GASTROINTESTINAL: Abdomen soft, obese ,non-tender. MUSCULOSKELETAL: generalized edema. - Urinary Catheter Management Indwelling Urethral Catheter Cath placed during this visit: yes, but has since been removed by the nurse Reason for continuing: Hourly intake/output Insertion date: 09/08/18 Insertion time: 22:52 Removal date: 09/17/18 Removal time: 09:10 <Venkatesh Bernal - Last Filed: 09/25/18 11:20> Vital signs: Vital Signs 09/25/18 16:00 09/25/18 19:50 09/25/18 20:00 Temperature 98.2 F Pulse Rate 93 H 93 H 88 Respiratory Rate 17 Blood Pressure 111/62 Pulse Oximetry 93 L 09/25/18 23:59 09/26/18 00:00 09/26/18 03:30 Temperature 98.8 F Pulse Rate 97 H 97 H 95 H Respiratory Rate 18 14 Blood Pressure 91/58 L Pulse Oximetry 97 09/26/18 03:54 09/26/18 04:00 09/26/18 08:00 Temperature 98.4 F 98.6 F Pulse Rate 95 H 92 H 89 Respiratory Rate 18 16 Blood Pressure 93/63 L 99/57 L Pulse Oximetry 94 L 96 Intake & Output 09/25/18 09/26/18 09/26/18 18:59 06:59 18:59 Intake Total 550 / 550 490 / 490 Output Total 2500 / 2500 200 / 200 5000 / 5000 Balance -1950 / -1950 290 / 290 -5000 / -5000 Weight 158.1 kg Intake: IV 550 / 550 250 / 250 Heparin/D5W 25,000 U/250 mL 25, 250 / 250 250 / 250 000 unit In 250 ml @ Per Protocol IV.CONT TITRATE PRN Rx #:[id number] Zyvox 600 mg Premix 300 ML @ 300 / 300 300 mls/hr IV.SIG Q12H VICKY Rx#: [id number] Oral 240 / 240 Output: Urine 200 / 200 Hemodialysis Amount 2500 / 2500 5000 / 5000 Other: Date of Last Bowel Movement 09/25/18 09/25/18 # Bowel Movements 2 - Urinary Catheter Management Indwelling Urethral Catheter Cath placed during this visit: no <Chris Majano - Last Filed: 09/26/18 14:46> Assessment and Plan - Assessment (1) Acute kidney failure Code(s): N17.9 - Acute kidney failure, unspecified Status: Acute Plan: Baseline renal function is not known. Could have developed contrast nephropathy after CTA. Has suffered ATN. Patient has become dialysis dependent. Patient to be dialyzed today, Creatinine is 9.70 and patient not making much urine. Monitor for renal recovery. Monitor urine output. (2) Respiratory failure Code(s): J96.90 - Respiratory failure, unspecified, unspecified whether with hypoxia or hypercapnia Status: Acute Plan: resolved. (3) Obesity Code(s): E66.9 - Obesity, unspecified Status: Acute Qualifiers: Obesity classification: adult class 3 (BMI >= 40) Plan: patient has obesity-hypoventilation syndrome. (4) Pulmonary embolism Code(s): I26.99 - Other pulmonary embolism without acute cor pulmonale Status : Acute Plan: On Heparin/Coumadin. <Venkatesh Bernal - Last Filed: 09/25/18 11:20> - Assessment (1) Acute kidney failure Code(s): N17.9 - Acute kidney failure, unspecified Status: Acute (2) Respiratory failure Code(s): J96.90 - Respiratory failure, unspecified, unspecified whether with hypoxia or hypercapnia Status: Acute (3) Obesity Code(s): E66.9 - Obesity, unspecified Status: Acute Qualifiers: Obesity classification: adult class 3 (BMI >= 40) (4) Pulmonary embolism Code(s): I26.99 - Other pulmonary embolism without acute cor pulmonale Status : Acute - Attending Attestation patient was seen and examined. Agree with above assessment and plan. Await renal recovery. Avoid nephrotoxic agents. <Chris Majano - Last Filed: 09/26/18 14:46>
[2018-09-25] MEDS: Heparin Drip 25,000 UNIT/250 ML BAG IV.CONT PRN (13:00)
--- NOTE | 2018-09-25 13:28 | P.PNIM ---
Subjective Interval history: Seen and evaluated this morning at the bedside with male present in the room. At this time patient denies subjective fever or chills. Patient denies palpitations, shortness of breath, chest pain, nausea, vomiting, diarrhea, or acute complaint other than right lower ankle area pain which she says occurred during a previous hospitalization. Otherwise patient is doing fine and says that she is due for dialysis session today. Patient has been on heparin and Coumadin awaiting transitioning. Physical Exam Vital signs: Last Vital Signs Temp 97.2 F L 09/25/18 12:00 Pulse 92 H 09/25/18 12:00 Resp 18 09/25/18 12:00 BP 127/65 09/25/18 12:00 Pulse Ox 96 09/25/18 12:00 Intake & Output 09/23/18 09/24/18 09/25/18 09/26/18 06:59 06:59 06:59 06:59 Intake Total 1500 / 1500 1430 / 1430 970 / 970 550 / 550 Output Total 1500 / 1500 1500 / 1500 Balance 0 / 0 -70 / -70 970 / 970 550 / 550 Weight 141.2 kg 157.5 kg General: Obese female, no acute distress HEENT: EOMI Cardiovascular: S1/S2. Appears regular Respiratory: Decreased breath sound at the base of the lung. No intercostal muscle use Gastrointestinal: Soft, nontender, nondistended, no guarding or rebound. Positive bowel sounds Extremity: No lower extremity edema Urinary Catheter Management Indwelling Urethral Catheter: Cath placed during this visit: yes, but has since been removed by the nurse Insertion date: 09/08/18 Insertion time: 22:52 Removal date: 09/17/18 Removal time: 09:10 Results Labs CBC & Chem 7: 09/25/18 05:05 09/25/18 05:05 Assessment and Plan (1) Acute kidney failure: Code(s): N17.9 - Acute kidney failure, unspecified Status: Acute (2) Respiratory failure: Code(s): J96.90 - Respiratory failure, unspecified, unspecified whether with hypoxia or hypercapnia Status: Acute (3) Obesity: Code(s): E66.9 - Obesity, unspecified Status: Acute (4) Pulmonary embolism: Code(s): I26.99 - Other pulmonary embolism without acute cor pulmonale Status: Acute Plan 47-year-old morbidly obese female was brought in emergently department by EMS due to respiratory failure and unresponsiveness with evidence of respiratory distress for which she was initially trialed on BiPAP but failed ultimately resulting in intubation and transfer to critical care. Patient has subsequently been extubated but during hospital course was found to have evidence of atrial fibrillation which is possibly paroxysmal in nature. Consultation has been appreciated by cardiology and patient is currently being transitioned over to Coumadin. Consultation also appreciated by nephrology for renal failure for which patient has been started on hemodialysis. Hospital course complicated pulmonary embolism currently on Coumadin Pulmonary: acute hypoxemic respiratory failure, suspected pneumonia (community -acquired), pulmonary embolism Currently improving and patient stabilized Extubated 09/16/2018, maintaining airway, maintaining oxygen saturation CTA chest: Very limited examination due to patient body habitus. Elongated filling defect in the right pulmonary artery suspicious for PE. Moderate-sized area consolidation of right lower lobe. Bilateral dependent lower lobe atelectasis. Continue Heparin drip. Monitor PTT per protocol. Bridging to Coumadin. INR is still subtherapeutic. Broad-spectrum antibiotics with Zosyn, Zyvox. - Continue scheduled and as needed breathing treatments. EzPAP, Acapella Cardiology: Acute systolic heart failure/Pulmonary edema Started on milrinone 09/13/2018 to maintain cardiac index more than 2.2. Discontinued 09/18/2018 Echo 09/09: Technically difficult study making assessment of left ventricular function and wall motion. Suboptimal. Grossly, left ventricular function appears severely reduced. probable global hypokinesis. Repeat limited echo , very poor windows difficult to interpret Cardiology Dr. Thanh rojo. Continue fluid removal with hemodialysis Nephrology: Acute kidney failure Patient currently on hemodialysis. Monitor renal function, I/O's, avoid nephrotoxins. Fluid removal with hemodialysis started 09/12/[address] Majano. Scheduled hemodialysis Alt days US abdomen: No masses or hydronephrosis, enlarged liver likely due to fatty infiltration. Free water restriction due to hyponatremia Infectious disease: Probable pneumonia/Sepsis -Continue abx (continue Zosyn, discontinued vancomycin 09/11/2018) monitor for signs of infections ( fever, WBC) Discontinued Zyvox which patient has been taking since 09/16. Strep pneumonia and Legionella urinary Ag negative 09/09 Blood, sputum and urine cx: All negative to date DVT GI prophylaxis -SCDs -Heparin drip transition to Coumadin as above -Pepcid Progress Note: Quality VTE Deep Vein Thrombosis/Pulmonary Embolism Present on Admission: Yes _ (1) Acute kidney failure Qualifiers: Acute renal failure type: (2) Respiratory failure Qualifiers: Chronicity: Respiratory failure complication: (3) Pulmonary embolism Qualifiers: Acute cor pulmonale presence: Chronicity: Pulmonary embolism type: (4) Obesity Qualifiers: Body mass index: Obesity classification: adult class 3 (BMI >= 40) Obesity type: Serious obesity comorbidity presence:
--- NOTE | 2018-09-25 16:47 | P.PNCA ---
Subjective Interval history: Patient evaluated during HD. Patient very lethargic but denies any CP, pressure , palpitations or dizziness. Patient does complain of mild SOB and edema. Medications and Allergies Allergies Allergy/AdvReac Type Severity Reaction Status Date / Time Penicillins Allergy Hives Verified 09/18/18 00:28 lisinopril AdvReac Severe Anaphylaxis Verified 09/18/18 00:28 Home Medications Medication Instructions Recorded Confirmed Type allopurinol 100 mg PO DAILY 09/11/18 09/11/18 History cyclobenzaprine 5 mg PO TID 09/11/18 09/11/18 History furosemide 40 mg PO DAILY 09/11/18 09/11/18 History hydralazine 50 mg PO Q8HR 09/11/18 09/11/18 History insulin detemir U-100 [Levemir 24 unit SUBCUT Q12HR 09/11/18 09/11/18 History U-100 Insulin] insulin regular human [Novolin R 1 sliding scale dose SUBCUT UD 09/11/18 History Regular U-100 Insuln] levothyroxine 50 mcg PO DAILY 09/11/18 09/11/18 History meloxicam DAILY 09/11/18 History potassium chloride 20 meq PO DAILY 09/11/18 09/11/18 History pravastatin 40 mg PO HS 09/11/18 09/11/18 History pregabalin [Lyrica] 50 mg PO BID 09/11/18 09/11/18 History sertraline 50 mg PO HS 09/11/18 09/11/18 History tramadol 50 mg PO Q6H PRN 09/11/18 09/11/18 History Active Medications: Active Medications Acetaminophen (Tylenol) 650 mg PO Q6H PRN PRN Reason: PAIN 1-5 AND/OR FEVER >101F Last Admin: 09/20/18 23:30 Dose: 650 mg Acetaminophen (Tylenol) 650 mg PO UNSCH PRN PRN Reason: SEE LABEL COMMENTS Hydrocodone Bitart/Acetaminophen ([place] 7.5/325) 1 tab PO Q6H PRN PRN Reason: PAIN 6-10;IF ABLE TO TAKE PO Last Admin: 09/24/18 00:18 Dose: 1 tab Al Hydroxide/Mg Hydroxide (Milk Of Magnesia Liq) 30 ml PO Q12H PRN PRN Reason: Mild Constipation Albuterol (Duoneb Neb (Prn)) 1 ampul NEB Q2HR NEB PRN PRN Reason: WHEEZING Last Admin: 09/14/18 10:45 Dose: 1 ampul Albuterol (Duoneb Neb ([place])) 1 ampul NEB Q6HR NEB [facility] Last Admin: 09/25/18 16:08 Dose: Not Given Bisacodyl (Dulcolax Supp) 10 mg RECTAL DAILY PRN PRN Reason: SEVERE CONSITIPATION Carvedilol (Coreg) 3.125 mg PO BID [facility] Last Admin: 09/25/18 10:15 Dose: 3.125 mg Chlorhexidine Gluconate (Peridex 0.12% Oral Kit) 15 ml OROPHARYNG BID@0800, 2000 [facility] Last Admin: 09/25/18 10:14 Dose: Not Given Clonidine HCl (Catapres) 0.1 mg PO UNSCH PRN PRN Reason: SEE LABEL COMMENTS Cyclobenzaprine HCl (Flexeril) 10 mg PO Q8H PRN PRN Reason: SPASM Last Admin: 09/14/18 18:14 Dose: 10 mg Dextrose (D50w Vial) 50 ml IV.PUSH UNSCH PRN PRN Reason: PER HYPOGLYCEMIA PROTOCOL Diphenhydramine HCl (Benadryl) 25 mg PO UNSCH PRN PRN Reason: SEE LABEL COMMENTS Last Admin: 09/25/18 02:52 Dose: 25 mg Famotidine (Pepcid Pf Inj) 10 mg IV.PUSH Q12HR [facility] Last Admin: 09/25/18 10:15 Dose: 10 mg Gelatin (Gelfoam 12 Mm/7 Mm Topical) 1 foam TOPICAL PRN PRN PRN Reason: help stop bleeding from site Gentamicin Sulfate (Gentamicin Inj) 20 mg OTHER WITH DIALYSIS PRN PRN Reason: Dwell Gentamycin Lock Last Admin: 09/23/18 17:00 Dose: 20 mg Glucagon (Glucagon Inj) 1 mg OTHER PRN PRN PRN Reason: for Hypoglycemia Protocol Heparin Sodium (Porcine) (Heparin Inj) 8,000 units OTHER WITH DIALYSIS PRN PRN Reason: for machine prime Last Admin: 09/16/18 22:55 Dose: 2,500 units Heparin Sodium (Porcine) (Heparin Inj) 1,000 units OTHER WITH DIALYSIS PRN PRN Reason: Dwell Heparin to Fill Catheter Last Admin: 09/23/18 17:00 Dose: 1,000 units Heparin Sodium/Dextrose (Heparin/D5w 25,000 U/250 Ml) 25,000 unit in 250 mls @ 0 mls/hr IV.CONT TITRATE PRN; Protocol PRN Reason: Per Protocol Last Admin: 09/25/18 13:00 Dose: 16 units/hr, 0.16 mls/hr Albumin Human (Flexbumin 25% Inj) 100 mls @ 60 mls/hr IV.SIG WITH DIALYSIS PRN PRN Reason: hypotension / volume replace Last Infusion: 09/23/18 15:40 Dose: Infused Sodium Chloride (Ns Inj) 1,000 mls @ 0 mls/hr OTHER .Q0M PRN PRN Reason: for prime and rinse back Sodium Chloride (Ns Inj) 1,000 mls @ 200 mls/hr OTHER .Q5H PRN PRN Reason: for dialyzer flush PRN Sodium Chloride (Ns Inj) 1,000 mls @ 0 mls/hr IV.CONT .Q0M PRN PRN Reason: hypotension / volume replace Insulin Human Regular (Novolin R [place] Sugar Inj) 0 units SQ Q4HR [facility]; Protocol Last Admin: 09/25/18 13:02 Dose: Not Given Lactulose (Lactulose Liq) 30 ml PO DAILY PRN PRN Reason: SEVERE CONSITIPATION Lactulose (Lactulose Liq) 30 ml PO BID [facility] Last Admin: 09/25/18 10:15 Dose: 30 ml Mannitol (Mannitol Inj) 12.5 gm IV.PUSH UNSCH PRN PRN Reason: hypotension / volume replace Miscellaneous Medication () 1 each OROPHARYNG 0000,0400,1200,1600 [facility] Last Admin: 09/25/18 13:02 Dose: Not Given Morphine Sulfate (Morphine Inj) 2 mg IV.PUSH Q2H PRN PRN Reason: PAIN SCALE 6 TO 10 Last Admin: 09/18/18 00:29 Dose: 2 mg Nitroglycerin (Nitrostat Sl) 0.4 mg SL Q5M PRN PRN Reason: CHEST PAIN Nystatin (Mycostatin Powder) 1 applicatio TOPICAL BID [facility] Last Admin: 09/25/18 10:16 Dose: 1 applicatio Ondansetron HCl (Zofran Inj) 4 mg IV.PUSH Q6H PRN PRN Reason: NAUSEA OR VOMITING Pharmacy Profile Note (Coumadin Consult Pharmacy) 1 each OTHER UNSCH PRN PRN Reason: PHARMACY DOCUMENTATION Senna/Docusate Sodium (Nereida-Colace) 1 tab PO BID [facility] Last Admin: 09/25/18 10:15 Dose: 1 tab Sennosides (Senokot) 17.2 mg PO Q12H PRN PRN Reason: Moderate Constipation Sevelamer Carbonate (Renvela) 1,600 mg PO TIDAC [facility] Last Admin: 09/25/18 13:01 Dose: 1,600 mg Sodium Chloride (Ns Flush) 2 ml IV.FLUSH BID [facility] Last Admin: 09/25/18 10:16 Dose: 2 ml Sodium Chloride (Ns Flush) 2 ml IV.FLUSH PRN PRN PRN Reason: FLUSH AFTER USING IV ACCESS Sodium Chloride (Ns Flush) 5 ml IV.FLUSH PRN PRN PRN Reason: flush each lumen during HD Warfarin Sodium (Coumadin) 7.5 mg PO DAILY@1600 [facility] Physical Exam Vital signs: Vital Signs 09/24/18 19:50 09/24/18 20:00 09/25/18 00:00 Temperature 98.3 F 98.1 F Pulse Rate 92 H 91 H 121 H Respiratory Rate 19 17 18 Blood Pressure 115/63 102/66 Pulse Oximetry 97 94 L 100 09/25/18 03:00 09/25/18 04:00 09/25/18 08:00 Temperature 98.5 F 98.2 F Pulse Rate 80 90 94 H Respiratory Rate 20 18 17 Blood Pressure 100/57 L 108/61 Pulse Oximetry 96 94 L 09/25/18 09:30 09/25/18 12:00 Temperature 97.2 F L Pulse Rate 94 H Respiratory Rate 18 Blood Pressure 127/65 Pulse Oximetry 95 96 Intake & Output 09/24/18 09/25/18 09/25/18 18:59 06:59 18:59 Intake Total 300 / 300 670 / 670 550 / 550 Balance 300 / 300 670 / 670 550 / 550 Weight 157.5 kg Intake: IV 300 / 300 550 / 550 550 / 550 Heparin/D5W 25,000 U/250 mL 25, 250 / 250 250 / 250 000 unit In 250 ml @ Per Protocol IV.CONT TITRATE PRN Rx #:[id number] Zyvox 600 mg Premix 300 ML @ 300 / 300 300 / 300 300 / 300 300 mls/hr IV.SIG Q12H [facility] Rx#: [id number] Oral 120 / 120 Other: # Voids 0 Date of Last Bowel Movement 09/25/18 - Constitutional no acute distress - Routine HEENT Exam Head: Present: normocephalic Eye: Present: PERRL ENT: Present: mucous membranes moist - Routine Neck Exam Present: full ROM - Routine Respiratory Exam Present: distant breath sounds - Routine Cardiovascular Exam Present: S1, S2. Absent: murmur, gallop, rubs - Routine Abdominal Exam Present: normoactive bowel sounds - Routine Extremities Exam Present: edema, full ROM, pulses intact, normal capillary refill. Absent: cyanosis, clubbing - Routine Skin Exam Present: intact - Routine Neurological Exam Present: oriented X3, moving all extremities - Detailed Neurological Exam: Coma Scale Eye Opening: To sound Verbal Response: Oriented Motor Response: Obey commands [place] Coma Scale Total: 14 - Routine Psychiatric Exam Present: unable to assess - Urinary Catheter Management Indwelling Urethral Catheter Cath placed during this visit: yes, but has since been removed by the nurse Reason for continuing: Hourly intake/output Insertion date: 09/08/18 Insertion time: 22:52 Removal date: 09/17/18 Removal time: 09:10 Results 09/25/18 05:05 09/25/18 05:05 Cardiac Enzymes 09/24/18 09/25/18 Range/Units 05:57 05:05 AST 20 17 (15-37) U/L Coagulation 09/24/18 09/24/18 09/25/18 Range/Units 05:57 16:13 05:05 PT 13.2 H 15.7 H (9.8-11.6) sec APTT 46.2 H D (23.4-31.7) sec 09/25/18 Range/Units 05:05 PT (9.8-11.6) sec APTT 68.2 H D (23.4-31.7) sec CBC 09/24/18 09/25/18 Range/Units 05:57 05:05 WBC 5.8 6.0 (4.0-11.0) th/mm3 RBC 4.51 4.73 (4.00-5.30) mil/mm3 Hgb 12.0 12.4 (11.6-15.3) gm/dL Hct 36.6 38.7 (35.0-46.0) % Plt Count 393 417 (150-450) th/mm3 Comprehensive Metabolic Panel 09/24/18 09/25/18 Range/Units 05:57 05:05 Sodium 133 L 135 L (136-145) meq/L Potassium 3.6 3.9 (3.5-5.1) meq/L Chloride 93 L 92 L (98-107) meq/L Carbon Dioxide 26.6 25.3 (21.0-32.0) meq/L BUN 42 H 60 H (7-18) mg/dL Creatinine 7.80 H 9.70 H (0.50-1.00) mg/dL Calcium 9.6 9.5 (8.5-10.1) mg/dL AST 20 17 (15-37) U/L ALT 26 24 (10-53) U/L Alkaline Phosphatase 88 93 (45-117) U/L Total Protein 9.4 H 9.5 H (6.4-8.2) g/dL Albumin 3.7 3.8 (3.4-5.0) g/dL Intake and Output 09/25/18 09/25/18 09/25/18 06:59 14:59 22:59 Intake Total 120 / 120 550 / 550 Balance 120 / 120 550 / 550 Intake: IV 550 / 550 Heparin/D5W 25,000 U/250 mL 25, 250 / 250 000 unit In 250 ml @ Per Protocol IV.CONT TITRATE PRN Rx #:[id number] Zyvox 600 mg Premix 300 ML @ 300 / 300 300 mls/hr IV.SIG Q12H [facility] Rx#: [id number] Oral 120 / 120 Other: # Voids 0 Date of Last Bowel Movement 09/25/18 Weight 157.5 kg Assessment and Plan - Assessment (1) CHF (congestive heart failure) Code(s): I50.9 - Heart failure, unspecified Status: Acute (2) Cardiomyopathy Code(s): I42.9 - Cardiomyopathy, unspecified Status: Acute (3) Acute kidney failure Code(s): N17.9 - Acute kidney failure, unspecified Status: Acute (4) Respiratory failure Code(s): J96.90 - Respiratory failure, unspecified, unspecified whether with hypoxia or hypercapnia Status: Acute (5) Obesity Code(s): E66.9 - Obesity, unspecified Status: Acute - Plan There have been no new cardiac issues noted at this time. We will continue with the current treatment plan for CHF including carvedilol, BP too low to titrate. Patients kidney function is still greatly decreased, patient is receiving HD, renal evaluation in progress. We will continue to monitor the patient on telemetry. We will continue to follow the patient during her hospitalization. The patient was seen and evaluated by Dr. Law who participated in care, management and decision making. - Attending Attestation Patient seen and examined. I reviewed and agree with the evaluation and plan as presented. Continue tx for CHF. Continue HD. Increase activity, PT. (5) Obesity Qualifiers: Obesity classification: adult class 3 (BMI >= 40)
[2018-09-25] MEDS: Heparin 10,000 UNITS/10 ML Vial (for IV use) OTHER PRN (17:20)
--- NOTE | 2018-09-25 17:33 | P.PN ---
Subjective Interval history: She is feeling better. No chest pains. On O2 3 L. Used CPAP from home , at HS Physical Exam Vital signs: Vital Signs 09/24/18 19:50 09/24/18 20:00 09/25/18 00:00 Temperature 98.3 F 98.1 F Pulse Rate 92 H 91 H 121 H Respiratory Rate 19 17 18 Blood Pressure 115/63 102/66 Pulse Oximetry 97 94 L 100 09/25/18 03:00 09/25/18 04:00 09/25/18 08:00 Temperature 98.5 F 98.2 F Pulse Rate 80 90 94 H Respiratory Rate 20 18 17 Blood Pressure 100/57 L 108/61 Pulse Oximetry 96 94 L 09/25/18 09:30 09/25/18 12:00 09/25/18 16:00 Temperature 97.2 F L Pulse Rate 94 H 93 H Respiratory Rate 18 Blood Pressure 127/65 Pulse Oximetry 95 96 Intake & Output 09/24/18 09/25/18 09/25/18 18:59 06:59 18:59 Intake Total 300 / 300 670 / 670 550 / 550 Output Total 2500 / 2500 Balance 300 / 300 670 / 670 -1950 / -1950 Weight 157.5 kg Intake: IV 300 / 300 550 / 550 550 / 550 Heparin/D5W 25,000 U/250 mL 25, 250 / 250 250 / 250 000 unit In 250 ml @ Per Protocol IV.CONT TITRATE PRN Rx #:[id number] Zyvox 600 mg Premix 300 ML @ 300 / 300 300 / 300 300 / 300 300 mls/hr IV.SIG Q12H [facility] Rx#: [id number] Oral 120 / 120 Output: Hemodialysis Amount 2500 / 2500 Other: # Voids 0 Date of Last Bowel Movement 09/25/18 Narrative: GENERAL: Awake and alert, morbidly obese. NECK: Supple, trachea midline. HEENT: unremarkable. CARDIOVASCULAR: Regular rate and rhythm. RESPIRATORY: Clear to auscultation bilaterally.Distant breath sounds. GASTROINTESTINAL: Abdomen soft, obese ,non-tender. MUSCULOSKELETAL: Mild edema. Neuro : No Gross deficits. - Urinary Catheter Management Indwelling Urethral Catheter Cath placed during this visit: yes, but has since been removed by the nurse Reason for continuing: Hourly intake/output Insertion date: 09/08/18 Insertion time: 22:52 Removal date: 09/17/18 Removal time: 09:10 Results - Labs CBC & Chem 7: 09/25/18 05:05 09/25/18 05:05 Laboratory Results - last 24 hr 09/24/18 09/24/18 09/25/18 16:13 20:10 00:19 WBC RBC Hgb Hct MCV MCH MCHC RDW Plt Count MPV PT INR APTT 46.2 H D Sodium Potassium Chloride Carbon Dioxide Anion Gap BUN Creatinine Estimated GFR POC Glucose 90 111 H Random Glucose Calcium Phosphorus Total Bilirubin AST ALT Alkaline Phosphatase Total Protein Albumin 09/25/18 09/25/18 09/25/18 04:26 05:05 05:05 WBC 6.0 RBC 4.73 Hgb 12.4 Hct 38.7 MCV 81.8 MCH 26.2 L MCHC 32.0 RDW 17.2 Plt Count 417 MPV 8.1 PT INR APTT Sodium 135 L Potassium 3.9 Chloride 92 L Carbon Dioxide 25.3 Anion Gap 18 H BUN 60 H Creatinine 9.70 H Estimated GFR 4 L POC Glucose 106 Random Glucose 88 Calcium 9.5 Phosphorus 8.7 H D Total Bilirubin 0.3 AST 17 ALT 24 Alkaline Phosphatase 93 Total Protein 9.5 H Albumin 3.8 09/25/18 09/25/18 09/25/18 05:05 05:05 07:57 WBC RBC Hgb Hct MCV MCH MCHC RDW Plt Count MPV PT 15.7 H INR 1.6 APTT 68.2 H D Sodium Potassium Chloride Carbon Dioxide Anion Gap BUN Creatinine Estimated GFR POC Glucose 104 Random Glucose Calcium Phosphorus Total Bilirubin AST ALT Alkaline Phosphatase Total Protein Albumin 09/25/18 09/25/18 12:42 17:04 WBC RBC Hgb Hct MCV MCH MCHC RDW Plt Count MPV PT INR APTT Sodium Potassium Chloride Carbon Dioxide Anion Gap BUN Creatinine Estimated GFR POC Glucose 100 113 H Random Glucose Calcium Phosphorus Total Bilirubin AST ALT Alkaline Phosphatase Total Protein Albumin Assessment and Plan - Assessment (1) Sleep apnea treated with nocturnal BiPAP Code(s): G47.30 - Sleep apnea, unspecified Status: Acute (2) Pneumonia Code(s): J18.9 - Pneumonia, unspecified organism Status: Acute (3) Acute kidney failure Code(s): N17.9 - Acute kidney failure, unspecified Status: Acute (4) Respiratory failure Code(s): J96.90 - Respiratory failure, unspecified, unspecified whether with hypoxia or hypercapnia Status: Acute (5) Obesity Code(s): E66.9 - Obesity, unspecified Status: Acute (6) Pulmonary embolism Code(s): I26.99 - Other pulmonary embolism without acute cor pulmonale Status : Acute (7) Chronic pain Code(s): G89.29 - Other chronic pain Status: Acute (8) Dyspnea Code(s): R06.00 - Dyspnea, unspecified Status: Acute (9) Debility Code(s): R53.81 - Other malaise Status: Acute (10) CHF (congestive heart failure) Code(s): I50.9 - Heart failure, unspecified Status: Acute - Plan 1. O2 3 L N/C 2. Dialysis as planned QOD 3. Duoneb nebs qid prn 4. Continue CPAP at HS daily 5. CBC,BMP CXR in am 6. Continue PT and OT (5) Obesity Qualifiers: Obesity classification: adult class 3 (BMI >= 40)
[2018-09-26] MEDS: Insulin NovoLIN Regular Correctional Sugar Inj SQ SCH ×7 (00:16→23:26)
[2018-09-26] MEDS: Acetaminophen 325 MG Tablet PO PRN (00:17)
[2018-09-26] MEDS: Oral Hygiene Kit OROPHARYNG SCH ×5 (04:17→23:26)
[2018-09-26] MEDS: Heparin Drip 25,000 UNIT/250 ML BAG IV.CONT PRN (06:07)
[2018-09-26 07:21] LABS: Activated Partial Thrombo Time 74.1 sec (23.4-31.7); INR 1.6 Ratio
[2018-09-26 07:22] LABS: Prothrombin Time 16.3 sec (9.8-11.6)
[2018-09-26 07:30] LABS: Alanine Aminotransferase 22 U/L (10-53); Albumin 3.7 g/dL (3.4-5.0); Alkaline Phosphatase 87 U/L (45-117); Anion Gap 14 meq/L (5-15); Aspartate Aminotransferase 17 U/L (15-37); Blood Urea Nitrogen 46 mg/dL (7-18); Calcium 10.1 mg/dL (8.5-10.1); Carbon Dioxide 23.2 meq/L (21.0-32.0); Chloride 96 meq/L (98-107); Glomerular Filtration Rate 6 mL/min (>89); Glucose,Random 99 mg/dL (74-106); Magnesium 2.1 mg/dL (1.5-2.5); Potassium 4.1 meq/L (3.5-5.1); Sodium 133 meq/L (136-145); Total Protein 9.5 g/dL (6.4-8.2)
[2018-09-26] MEDS: Chlorhexidine 0.12% Oral Kit 15 ML UDC OROPHARYNG SCH ×2 (07:36→20:25)
--- NOTE | 2018-09-26 08:41 | XR ---
EXAM DATE: 09/26/2018 8:36 AM EST AGE/SEX: 47 years / Female INDICATIONS: Respiratory failure. CLINICAL DATA: This is the patient's subsequent encounter. Patient reports that signs and symptoms h ave been present for 3 weeks and indicates a pain score of 0/10. MEDICAL/SURGICAL HISTORY: . Congestive heart failure. Respiratory failure. Atrial flutter. Non -responsive. COMPARISON: [facility] – [place], CHEST 1V SINGLE AP, 09/21/2018. . FINDINGS: The heart is enlarged. Right internal jugular Vas-Cath has its tip in the right atrium. There is no p neumothorax. The pulmonary vascular pattern is normal. Minimal discoid atelectasis is noted within le ft mid lung. No focal infiltrate is noted. CONCLUSION: 1. Stable cardiomegaly. 2. Minimal discoid atelectasis within the left mid lung. 3. No evidence of pulmonary vascular congestion or pneumonia. Electronically signed by: Chevy Santos MD Board Certified Radiologist 09/26/2018 8:39 AM EST
[2018-09-26] MEDS: Famotidine PF Inj 20 MG/2 ML Vial IV.PUSH SCH ×2 (09:04→21:16)
[2018-09-26] MEDS: Nystatin 100,000 UNITS/GM Powder 15 GM Bottle TOPICAL SCH ×2 (09:04→21:16)
[2018-09-26] MEDS: Senna/Docusate Sodium 8.6/50 MG Tablet PO SCH ×2 (09:05→20:25)
--- NOTE | 2018-09-26 11:26 | P.PNNP ---
Subjective Interval history: Patient was seen resting comfortably, no distress, no complaints. Patient was seen on dialysis, on 3K, 320 ml/min, UF goal of 2.5 L. Patient was dialyzed yesterday due to creatinine level of 9.70 and 2.5 L was removed in UF. Patient made 200 mL urine yesterday. Chest x-ray today showed No evidence of pulmonary vascular congestion or pneumonia. <Venkatesh Bernal - Last Filed: 09/26/18 11:19> Physical Exam Vital signs: Vital Signs 09/25/18 12:00 09/25/18 16:00 09/25/18 19:50 Temperature 97.2 F L Pulse Rate 94 H 93 H 93 H Respiratory Rate 18 Blood Pressure 127/65 Pulse Oximetry 96 09/25/18 20:00 09/25/18 23:59 09/26/18 00:00 Temperature 98.2 F 98.8 F Pulse Rate 88 97 H 97 H Respiratory Rate 17 18 Blood Pressure 111/62 91/58 L Pulse Oximetry 93 L 97 09/26/18 03:30 09/26/18 03:54 09/26/18 04:00 Temperature 98.4 F Pulse Rate 95 H 95 H 92 H Respiratory Rate 14 18 Blood Pressure 93/63 L Pulse Oximetry 94 L 09/26/18 08:00 Temperature 98.6 F Pulse Rate 89 Respiratory Rate 16 Blood Pressure 99/57 L Pulse Oximetry 96 Intake & Output 09/25/18 09/26/18 09/26/18 18:59 06:59 18:59 Intake Total 550 / 550 490 / 490 Output Total 2500 / 2500 200 / 200 Balance -1950 / -1950 290 / 290 Weight 158.1 kg Intake: IV 550 / 550 250 / 250 Heparin/D5W 25,000 U/250 mL 25, 250 / 250 250 / 250 000 unit In 250 ml @ Per Protocol IV.CONT TITRATE PRN Rx #:[id number] Zyvox 600 mg Premix 300 ML @ 300 / 300 300 mls/hr IV.SIG Q12H [facility] Rx#: [id number] Oral 240 / 240 Output: Urine 200 / 200 Hemodialysis Amount 2500 / 2500 Other: Date of Last Bowel Movement 09/25/18 09/25/18 # Bowel Movements 2 Narrative: GENERAL: NAD, on dialysis, morbidly obese. NECK: Supple, trachea midline. HEENT: unremarkable. CARDIOVASCULAR: Regular rate and rhythm. RESPIRATORY: Clear to auscultation bilaterally. GASTROINTESTINAL: Abdomen soft, obese ,non-tender. MUSCULOSKELETAL: Mild edema. Neuro: Clear speech. - Urinary Catheter Management Indwelling Urethral Catheter Cath placed during this visit: yes, but has since been removed by the nurse Reason for continuing: Hourly intake/output Insertion date: 09/08/18 Insertion time: 22:52 Removal date: 09/17/18 Removal time: 09:10 <Venkatesh Bernal - Last Filed: 09/26/18 11:19> Vital signs: Vital Signs 09/25/18 16:00 09/25/18 19:50 09/25/18 20:00 Temperature 98.2 F Pulse Rate 93 H 93 H 88 Respiratory Rate 17 Blood Pressure 111/62 Pulse Oximetry 93 L 09/25/18 23:59 09/26/18 00:00 09/26/18 03:30 Temperature 98.8 F Pulse Rate 97 H 97 H 95 H Respiratory Rate 18 14 Blood Pressure 91/58 L Pulse Oximetry 97 09/26/18 03:54 09/26/18 04:00 09/26/18 08:00 Temperature 98.4 F 98.6 F Pulse Rate 95 H 92 H 89 Respiratory Rate 18 16 Blood Pressure 93/63 L 99/57 L Pulse Oximetry 94 L 96 Intake & Output 09/25/18 09/26/18 09/26/18 18:59 06:59 18:59 Intake Total 550 / 550 490 / 490 Output Total 2500 / 2500 200 / 200 5000 / 5000 Balance -1950 / -1950 290 / 290 -5000 / -5000 Weight 158.1 kg Intake: IV 550 / 550 250 / 250 Heparin/D5W 25,000 U/250 mL 25, 250 / 250 250 / 250 000 unit In 250 ml @ Per Protocol IV.CONT TITRATE PRN Rx #:[id number] Zyvox 600 mg Premix 300 ML @ 300 / 300 300 mls/hr IV.SIG Q12H [facility] Rx#: [id number] Oral 240 / 240 Output: Urine 200 / 200 Hemodialysis Amount 2500 / 2500 5000 / 5000 Other: Date of Last Bowel Movement 09/25/18 09/25/18 # Bowel Movements 2 - Urinary Catheter Management Indwelling Urethral Catheter Cath placed during this visit: no <Chris Majano - Last Filed: 09/26/18 14:58> Assessment and Plan - Assessment (1) Acute kidney failure Code(s): N17.9 - Acute kidney failure, unspecified Status: Acute Plan: Baseline renal function is not known. Could have developed contrast nephropathy after CTA. Has suffered ATN. Patient has become dialysis dependent. Patient was seen on dialysis, on 3K, 320 ml/min, UF goal of 2.5 L. Patient was dialyzed yesterday due to creatinine level of 9.70 and 2.5 L was removed in UF. Monitor for renal recovery. Monitor urine output. (2) Respiratory failure Code(s): J96.90 - Respiratory failure, unspecified, unspecified whether with hypoxia or hypercapnia Status: Acute Plan: resolved. (3) Obesity Code(s): E66.9 - Obesity, unspecified Status: Acute Qualifiers: Obesity classification: adult class 3 (BMI >= 40) Plan: patient has obesity-hypoventilation syndrome. (4) Pulmonary embolism Code(s): I26.99 - Other pulmonary embolism without acute cor pulmonale Status : Acute Plan: On Heparin/Coumadin. <Venkatesh Bernal - Last Filed: 09/26/18 11:19> - Assessment (1) Acute kidney failure Code(s): N17.9 - Acute kidney failure, unspecified Status: Acute (2) Respiratory failure Code(s): J96.90 - Respiratory failure, unspecified, unspecified whether with hypoxia or hypercapnia Status: Acute (3) Obesity Code(s): E66.9 - Obesity, unspecified Status: Acute Qualifiers: Obesity classification: adult class 3 (BMI >= 40) (4) Pulmonary embolism Code(s): I26.99 - Other pulmonary embolism without acute cor pulmonale Status : Acute - Attending Attestation patient was seen and examined. Agree with above assessment and plan. Monitor urine output. Avoid nephrotoxins. <Chris Majano - Last Filed: 09/26/18 14:58>
--- NOTE | 2018-09-26 12:47 | P.PN ---
Subjective Interval history: On Dialysis today.No new complaints. On O2 3 L CPAP at HS. Physical Exam Vital signs: Vital Signs 09/25/18 16:00 09/25/18 19:50 09/25/18 20:00 Temperature 98.2 F Pulse Rate 93 H 93 H 88 Respiratory Rate 17 Blood Pressure 111/62 Pulse Oximetry 93 L 09/25/18 23:59 09/26/18 00:00 09/26/18 03:30 Temperature 98.8 F Pulse Rate 97 H 97 H 95 H Respiratory Rate 18 14 Blood Pressure 91/58 L Pulse Oximetry 97 09/26/18 03:54 09/26/18 04:00 09/26/18 08:00 Temperature 98.4 F 98.6 F Pulse Rate 95 H 92 H 89 Respiratory Rate 18 16 Blood Pressure 93/63 L 99/57 L Pulse Oximetry 94 L 96 Intake & Output 09/25/18 09/26/18 09/26/18 18:59 06:59 18:59 Intake Total 550 / 550 490 / 490 Output Total 2500 / 2500 200 / 200 Balance -1950 / -1950 290 / 290 Weight 158.1 kg Intake: IV 550 / 550 250 / 250 Heparin/D5W 25,000 U/250 mL 25, 250 / 250 250 / 250 000 unit In 250 ml @ Per Protocol IV.CONT TITRATE PRN Rx #:[id number] Zyvox 600 mg Premix 300 ML @ 300 / 300 300 mls/hr IV.SIG Q12H VICKY Rx#: [id number] Oral 240 / 240 Output: Urine 200 / 200 Hemodialysis Amount 2500 / 2500 Other: Date of Last Bowel Movement 09/25/18 09/25/18 # Bowel Movements 2 Narrative: GENERAL: NAD, on dialysis, morbidly obese. NECK: Supple, trachea midline. HEENT: unremarkable. CARDIOVASCULAR: Regular rate and rhythm. RESPIRATORY: Distant breath sounds. Clear to auscultation bilaterally. GASTROINTESTINAL: Abdomen soft, obese ,non-tender. MUSCULOSKELETAL: Mild edema. Neuro:No gross deficits. - Urinary Catheter Management Indwelling Urethral Catheter Cath placed during this visit: yes, but has since been removed by the nurse Reason for continuing: Hourly intake/output Insertion date: 09/08/18 Insertion time: 22:52 Removal date: 09/17/18 Removal time: 09:10 Results - Labs CBC & Chem 7: 09/25/18 05:05 09/26/18 06:42 Laboratory Results - last 24 hr 09/25/18 09/25/18 09/25/18 12:42 17:04 21:06 PT INR APTT Sodium Potassium Chloride Carbon Dioxide Anion Gap BUN Creatinine Estimated GFR POC Glucose 100 113 H 103 Random Glucose Calcium Magnesium Total Bilirubin AST ALT Alkaline Phosphatase Total Protein Albumin 09/26/18 09/26/18 09/26/18 00:13 04:30 06:42 PT INR APTT Sodium 133 L Potassium 4.1 Chloride 96 L Carbon Dioxide 23.2 Anion Gap 14 BUN 46 H Creatinine 7.88 H Estimated GFR 6 L POC Glucose 104 111 H Random Glucose 99 Calcium 10.1 Magnesium 2.1 Total Bilirubin 0.3 AST 17 ALT 22 Alkaline Phosphatase 87 Total Protein 9.5 H Albumin 3.7 09/26/18 09/26/18 09/26/18 06:42 07:06 12:00 PT 16.3 H INR 1.6 APTT 74.1 H Sodium Potassium Chloride Carbon Dioxide Anion Gap BUN Creatinine Estimated GFR POC Glucose 101 113 H Random Glucose Calcium Magnesium Total Bilirubin AST ALT Alkaline Phosphatase Total Protein Albumin - Imaging Impressions Chest X-Ray 09/26/18 00:00 CONCLUSION: 1. Stable cardiomegaly. 2. Minimal discoid atelectasis within the left mid lung. 3. No evidence of pulmonary vascular congestion or pneumonia. Assessment and Plan - Assessment (1) Sleep apnea treated with nocturnal BiPAP Code(s): G47.30 - Sleep apnea, unspecified Status: Acute (2) Pneumonia Code(s): J18.9 - Pneumonia, unspecified organism Status: Acute (3) Acute kidney failure Code(s): N17.9 - Acute kidney failure, unspecified Status: Acute (4) Respiratory failure Code(s): J96.90 - Respiratory failure, unspecified, unspecified whether with hypoxia or hypercapnia Status: Acute (5) Obesity Code(s): E66.9 - Obesity, unspecified Status: Acute (6) Pulmonary embolism Code(s): I26.99 - Other pulmonary embolism without acute cor pulmonale Status : Acute (7) Chronic pain Code(s): G89.29 - Other chronic pain Status: Acute (8) Dyspnea Code(s): R06.00 - Dyspnea, unspecified Status: Acute (9) Debility Code(s): R53.81 - Other malaise Status: Acute (10) CHF (congestive heart failure) Code(s): I50.9 - Heart failure, unspecified Status: Acute - Plan 1. O2 3 L N/C 2. Dialysis as planned QOD 3. Duoneb nebs qid prn 4. Continue CPAP at HS daily 5. CBC,BMP CXR in am 6. Continue PT and OT (5) Obesity Qualifiers: Obesity classification: adult class 3 (BMI >= 40)
--- NOTE | 2018-09-26 15:00 | P.PNIM ---
Subjective Interval history: And tolerating it well. Chest x-ray obtained shows stable cardiomegaly no evidence of vascular congestion or pneumonia Patient denies subjective fever INR still not therapeutic yet only 1.6 Renal function without significant recovery Physical Exam Vital signs: Last Vital Signs Temp 98.6 F 09/26/18 08:00 Pulse 89 09/26/18 08:00 Resp 16 09/26/18 08:00 BP 99/57 L 09/26/18 08:00 Pulse Ox 96 09/26/18 08:00 Intake & Output 09/24/18 09/25/18 09/26/18 09/27/18 06:59 06:59 06:59 06:59 Intake Total 1430 / 1430 970 / 970 1040 / 1040 Output Total 1500 / 1500 2700 / 2700 5000 / 5000 Balance -70 / -70 970 / 970 -1660 / -1660 -5000 / -5000 Weight 141.2 kg 157.5 kg 158.1 kg General: Obese female, no acute distress, fatigued HEENT: EOMI Cardiovascular: S1/S2. Appears regular Respiratory: Decreased breath sound at the base of the lung. No intercostal muscle use Gastrointestinal: Soft, nontender, nondistended, no guarding or rebound. Positive bowel sounds Extremity: No lower extremity edema Urinary Catheter Management Indwelling Urethral Catheter: Cath placed during this visit: yes, but has since been removed by the nurse Insertion date: 09/08/18 Insertion time: 22:52 Removal date: 09/17/18 Removal time: 09:10 Results Labs CBC & Chem 7: 09/25/18 05:05 09/26/18 06:42 Imaging Imaging: Impressions Chest X-Ray 09/26/18 00:00 CONCLUSION: 1. Stable cardiomegaly. 2. Minimal discoid atelectasis within the left mid lung. 3. No evidence of pulmonary vascular congestion or pneumonia. Assessment and Plan (1) Sleep apnea treated with nocturnal BiPAP: Code(s): G47.30 - Sleep apnea, unspecified Status: Acute (2) Pneumonia: Code(s): J18.9 - Pneumonia, unspecified organism Status: Acute (3) Acute kidney failure: Code(s): N17.9 - Acute kidney failure, unspecified Status: Acute (4) Respiratory failure: Code(s): J96.90 - Respiratory failure, unspecified, unspecified whether with hypoxia or hypercapnia Status: Acute (5) Obesity: Code(s): E66.9 - Obesity, unspecified Status: Acute (6) Pulmonary embolism: Code(s): I26.99 - Other pulmonary embolism without acute cor pulmonale Status: Acute (7) Chronic pain: Code(s): G89.29 - Other chronic pain Status: Acute (8) Dyspnea: Code(s): R06.00 - Dyspnea, unspecified Status: Acute (9) Debility: Code(s): R53.81 - Other malaise Status: Acute (10) CHF (congestive heart failure): Code(s): I50.9 - Heart failure, unspecified Status: Acute Plan 47-year-old morbidly obese female was brought in emergently department by EMS due to respiratory failure and unresponsiveness with evidence of respiratory distress for which she was initially trialed on BiPAP but failed ultimately resulting in intubation and transfer to critical care. Patient has subsequently been extubated but during hospital course was found to have evidence of atrial fibrillation which is possibly paroxysmal in nature. Consultation has been appreciated by cardiology and patient is currently being transitioned over to Coumadin. Consultation also appreciated by nephrology for renal failure for which patient has been started on hemodialysis. Hospital course complicated pulmonary embolism currently on Coumadin Pulmonary: acute hypoxemic respiratory failure, suspected pneumonia (community -acquired), pulmonary embolism Currently improving and patient stabilized Extubated 09/16/2018, maintaining airway, maintaining oxygen saturation CTA chest: Very limited examination due to patient body habitus. Elongated filling defect in the right pulmonary artery suspicious for PE. Moderate-sized area consolidation of right lower lobe. Bilateral dependent lower lobe atelectasis. Continue Heparin drip. Monitor PTT per protocol. Bridging to Coumadin. INR is still subtherapeutic. - Continue scheduled and as needed breathing treatments. EzPAP, Acapella Chest x-ray 09/26: No evidence of pulmonary vascular congestion or edema. Cardiology: Acute systolic heart failure/Pulmonary edema Started on milrinone 09/13/2018 to maintain cardiac index more than 2.2. Discontinued 09/18/2018 Echo 09/09: Technically difficult study making assessment of left ventricular function and wall motion. Suboptimal. Grossly, left ventricular function appears severely reduced. probable global hypokinesis. Repeat limited echo , very poor windows difficult to interpret Cardiology Dr. Law following. Continue fluid removal with hemodialysis Nephrology: Acute kidney failure Patient currently on hemodialysis. Monitor renal function, I/O's, avoid nephrotoxins. Fluid removal with hemodialysis started 09/12/[address] Majano. Scheduled hemodialysis Alt days US abdomen: No masses or hydronephrosis, enlarged liver likely due to fatty infiltration. Infectious disease: Probable pneumonia/Sepsis Discontinued Zyvox which patient has been taking since 09/16. Strep pneumonia and Legionella urinary Ag negative 09/09 Blood, sputum and urine cx: All negative to date Chest x-ray 09/26 without evidence of pneumonia or pulmonary vascular congestion DVT GI prophylaxis -SCDs -Heparin drip transition to Coumadin as above -Pepcid Progress Note: Quality VTE Deep Vein Thrombosis/Pulmonary Embolism Present on Admission: Yes _ (1) Pneumonia Qualifiers: Pneumonia type: Aspiration pneumonia type: Laterality: Lung location: (2) Acute kidney failure Qualifiers: Acute renal failure type: (3) Respiratory failure Qualifiers: Chronicity: Respiratory failure complication: (4) Obesity Qualifiers: Obesity type: Obesity classification: adult class 3 (BMI >= 40) Serious obesity comorbidity presence: Body mass index: (5) Pulmonary embolism Qualifiers: Pulmonary embolism type: Chronicity: Acute cor pulmonale presence: (6) Chronic pain Qualifiers: Chronic pain type: (7) Dyspnea Qualifiers: Dyspnea type: (8) CHF (congestive heart failure) Qualifiers: Heart failure type: Heart failure chronicity:
--- NOTE | 2018-09-26 15:55 | IR ---
EXAM DATE: 09/23/2018 11:08 AM EST AGE/SEX: 47 years / Female INDICATIONS: Patient with right vas cath with poor flow. Needs exchange. CLINICAL DATA: This is the patient's initial encounter. Patient reports that signs and symptoms have been present for 2 weeks and indicates a pain score of 0/10. MEDICAL/SURGICAL HISTORY: Hypertension. Diabetes. Chronic obstructive pulmonary disease. obe sity,respitory failure, atrial flutter.acute kidney injury. Cholecystectomy. section. Hy sterectomy. COMPARISON: No prior exams available for comparison. FLUORO TIME (min): 0.6 IMAGE SERIES: 2 RADIATION DOSE: 46.6 mGy ACCESS SITE: Right internal jugular vein DEVICE(S): 14 Salv[place]orean double lumen 20 CM Schon catheter . . PROCEDURE: 1. Fluoroscopically guided central venous catheter exchange. The risks, benefits and alternatives to the procedure were explained and verbal and written consent w as obtained. The site was prepped in sterile fashion. Full sterile technique was used, including ca p, mask, sterile gloves and gown and a large sterile sheet. Hand hygiene and 2% chlorhexidine prep w as utilized per protocol for cutaneous antisepsis with appropriate dry time for site. The skin and s ubcutaneous tissues were infiltrated with local anesthetic solution. With fluoroscopic guidance a previously placed central venous catheter was exchanged for the prescrib ed catheter as above. Post procedure image demonstrates satisfactory position of the tube. The cath eter was sutured in place. CONCLUSION: 1. Uncomplicated venous catheter change as above. Electronically signed by: Eddie Lockett MD Board Certified Radiologist 09/26/2018 3:53 PM EST
--- NOTE | 2018-09-26 18:19 | P.PNCA ---
Subjective Interval history: Patient denies any CP, pressure, palpitations or SOB. Patient does complain of dizziness when sitting up and improving edema in the lower extremities. Medications and Allergies Allergies Allergy/AdvReac Type Severity Reaction Status Date / Time Penicillins Allergy Hives Verified 09/18/18 00:28 lisinopril AdvReac Severe Anaphylaxis Verified 09/18/18 00:28 Home Medications Medication Instructions Recorded Confirmed Type allopurinol 100 mg PO DAILY 09/11/18 09/11/18 History cyclobenzaprine 5 mg PO TID 09/11/18 09/11/18 History furosemide 40 mg PO DAILY 09/11/18 09/11/18 History hydralazine 50 mg PO Q8HR 09/11/18 09/11/18 History insulin detemir U-100 [Levemir 24 unit SUBCUT Q12HR 09/11/18 09/11/18 History U-100 Insulin] insulin regular human [Novolin R 1 sliding scale dose SUBCUT UD 09/11/18 History Regular U-100 Insuln] levothyroxine 50 mcg PO DAILY 09/11/18 09/11/18 History meloxicam DAILY 09/11/18 History potassium chloride 20 meq PO DAILY 09/11/18 09/11/18 History pravastatin 40 mg PO HS 09/11/18 09/11/18 History pregabalin [Lyrica] 50 mg PO BID 09/11/18 09/11/18 History sertraline 50 mg PO HS 09/11/18 09/11/18 History tramadol 50 mg PO Q6H PRN 09/11/18 09/11/18 History Active Medications: Active Medications Acetaminophen (Tylenol) 650 mg PO Q6H PRN PRN Reason: PAIN 1-5 AND/OR FEVER >101F Last Admin: 09/26/18 00:17 Dose: 650 mg Acetaminophen (Tylenol) 650 mg PO UNSCH PRN PRN Reason: SEE LABEL COMMENTS Hydrocodone Bitart/Acetaminophen ([place] 7.5/325) 1 tab PO Q6H PRN PRN Reason: PAIN 6-10;IF ABLE TO TAKE PO Last Admin: 09/24/18 00:18 Dose: 1 tab Al Hydroxide/Mg Hydroxide (Milk Of Magnesia Liq) 30 ml PO Q12H PRN PRN Reason: Mild Constipation Albuterol (Duoneb Neb (Prn)) 1 ampul NEB Q2HR NEB PRN PRN Reason: WHEEZING Last Admin: 09/14/18 10:45 Dose: 1 ampul Bisacodyl (Dulcolax Supp) 10 mg RECTAL DAILY PRN PRN Reason: SEVERE CONSITIPATION Carvedilol (Coreg) 3.125 mg PO BID [facility] Last Admin: 09/26/18 09:03 Dose: Not Given Chlorhexidine Gluconate (Peridex 0.12% Oral Kit) 15 ml OROPHARYNG BID@0800, 2000 [facility] Last Admin: 09/26/18 07:36 Dose: Not Given Clonidine HCl (Catapres) 0.1 mg PO UNSCH PRN PRN Reason: SEE LABEL COMMENTS Cyclobenzaprine HCl (Flexeril) 10 mg PO Q8H PRN PRN Reason: SPASM Last Admin: 09/26/18 15:05 Dose: 10 mg Dextrose (D50w Vial) 50 ml IV.PUSH UNSCH PRN PRN Reason: PER HYPOGLYCEMIA PROTOCOL Famotidine (Pepcid Pf Inj) 10 mg IV.PUSH Q12HR [facility] Last Admin: 09/26/18 09:04 Dose: 10 mg Gelatin (Gelfoam 12 Mm/7 Mm Topical) 1 foam TOPICAL PRN PRN PRN Reason: help stop bleeding from site Gentamicin Sulfate (Gentamicin Inj) 20 mg OTHER WITH DIALYSIS PRN PRN Reason: Dwell Gentamycin Lock Last Admin: 09/26/18 13:27 Dose: 20 mg Glucagon (Glucagon Inj) 1 mg OTHER PRN PRN PRN Reason: for Hypoglycemia Protocol Heparin Sodium (Porcine) (Heparin Inj) 8,000 units OTHER WITH DIALYSIS PRN PRN Reason: for machine prime Last Admin: 09/16/18 22:55 Dose: 2,500 units Heparin Sodium (Porcine) (Heparin Inj) 1,000 units OTHER WITH DIALYSIS PRN PRN Reason: Dwell Heparin to Fill Catheter Last Admin: 09/25/18 17:20 Dose: 1,000 units Heparin Sodium/Dextrose (Heparin/D5w 25,000 U/250 Ml) 25,000 unit in 250 mls @ 0 mls/hr IV.CONT TITRATE PRN; Protocol PRN Reason: Per Protocol Last Titration: 09/26/18 09:12 Dose: 16 units/hr, 0.16 mls/hr Albumin Human (Flexbumin 25% Inj) 100 mls @ 60 mls/hr IV.SIG WITH DIALYSIS PRN PRN Reason: hypotension / volume replace Last Infusion: 09/23/18 15:40 Dose: Infused Sodium Chloride (Ns Inj) 1,000 mls @ 0 mls/hr OTHER .Q0M PRN PRN Reason: for prime and rinse back Sodium Chloride (Ns Inj) 1,000 mls @ 200 mls/hr OTHER .Q5H PRN PRN Reason: for dialyzer flush PRN Sodium Chloride (Ns Inj) 1,000 mls @ 0 mls/hr IV.CONT .Q0M PRN PRN Reason: hypotension / volume replace Insulin Human Regular (Novolin R Correctional Sugar Inj) 0 units SQ Q4HR [facility]; Protocol Last Admin: 09/26/18 16:56 Dose: Not Given Lactulose (Lactulose Liq) 30 ml PO DAILY PRN PRN Reason: SEVERE CONSITIPATION Lactulose (Lactulose Liq) 30 ml PO BID [facility] Last Admin: 09/26/18 09:03 Dose: Not Given Mannitol (Mannitol Inj) 12.5 gm IV.PUSH UNSCH PRN PRN Reason: hypotension / volume replace Miscellaneous Medication () 1 each OROPHARYNG 0000,0400,1200,1600 [facility] Last Admin: 09/26/18 15:49 Dose: Not Given Morphine Sulfate (Morphine Inj) 2 mg IV.PUSH Q2H PRN PRN Reason: PAIN SCALE 6 TO 10 Last Admin: 09/18/18 00:29 Dose: 2 mg Nitroglycerin (Nitrostat Sl) 0.4 mg SL Q5M PRN PRN Reason: CHEST PAIN Nystatin (Mycostatin Powder) 1 applicatio TOPICAL BID [facility] Last Admin: 09/26/18 09:04 Dose: 1 applicatio Ondansetron HCl (Zofran Inj) 4 mg IV.PUSH Q6H PRN PRN Reason: NAUSEA OR VOMITING Last Admin: 09/26/18 00:23 Dose: 4 mg Pharmacy Profile Note (Coumadin Consult Pharmacy) 1 each OTHER UNSCH PRN PRN Reason: PHARMACY DOCUMENTATION Senna/Docusate Sodium (Nereida-Colace) 1 tab PO BID [facility] Last Admin: 09/26/18 09:05 Dose: Not Given Sennosides (Senokot) 17.2 mg PO Q12H PRN PRN Reason: Moderate Constipation Sevelamer Carbonate (Renvela) 1,600 mg PO TIDAC [facility] Last Admin: 09/26/18 16:57 Dose: 1,600 mg Sodium Chloride (Ns Flush) 2 ml IV.FLUSH BID [facility] Last Admin: 09/26/18 09:04 Dose: 2 ml Sodium Chloride (Ns Flush) 2 ml IV.FLUSH PRN PRN PRN Reason: FLUSH AFTER USING IV ACCESS Last Admin: 09/26/18 00:25 Dose: 2 ml Sodium Chloride (Ns Flush) 5 ml IV.FLUSH PRN PRN PRN Reason: flush each lumen during HD Warfarin Sodium (Coumadin) 7.5 mg PO DAILY@1600 [facility] Last Admin: 09/26/18 15:05 Dose: 7.5 mg Physical Exam Vital signs: Vital Signs 09/25/18 19:50 09/25/18 20:00 09/25/18 23:59 Temperature 98.2 F Pulse Rate 93 H 88 97 H Respiratory Rate 17 Blood Pressure 111/62 Pulse Oximetry 93 L 09/26/18 00:00 09/26/18 03:30 09/26/18 03:54 Temperature 98.8 F Pulse Rate 97 H 95 H 95 H Respiratory Rate 18 14 Blood Pressure 91/58 L Pulse Oximetry 97 09/26/18 04:00 09/26/18 08:00 09/26/18 12:00 Temperature 98.4 F 98.6 F Pulse Rate 92 H 89 94 H Respiratory Rate 18 16 Blood Pressure 93/63 L 99/57 L Pulse Oximetry 94 L 96 09/26/18 16:00 Temperature 98.2 F Pulse Rate 162 H Respiratory Rate 18 Blood Pressure 90/57 L Pulse Oximetry 96 Intake & Output 09/25/18 09/26/18 09/26/18 18:59 06:59 18:59 Intake Total 550 / 550 490 / 490 Output Total 2500 / 2500 200 / 200 5000 / 5000 Balance -1950 / -1950 290 / 290 -5000 / -5000 Weight 158.1 kg Intake: IV 550 / 550 250 / 250 Heparin/D5W 25,000 U/250 mL 25, 250 / 250 250 / 250 000 unit In 250 ml @ Per Protocol IV.CONT TITRATE PRN Rx #:[id number] Zyvox 600 mg Premix 300 ML @ 300 / 300 300 mls/hr IV.SIG Q12H VICKY Rx#: [id number] Oral 240 / 240 Output: Urine 200 / 200 Hemodialysis Amount 2500 / 2500 5000 / 5000 Other: Date of Last Bowel Movement 09/25/18 09/25/18 # Bowel Movements 2 - Constitutional no acute distress - Routine HEENT Exam Head: Present: normocephalic Eye: Present: PERRL ENT: Present: mucous membranes moist - Routine Neck Exam Present: full ROM - Routine Respiratory Exam Present: CTA bilaterally - Routine Cardiovascular Exam Present: S1, S2. Absent: murmur, gallop, rubs - Routine Abdominal Exam Present: normoactive bowel sounds - Routine Extremities Exam Present: edema, full ROM, pulses intact, normal capillary refill. Absent: cyanosis, clubbing - Routine Skin Exam Present: intact - Routine Neurological Exam Present: oriented X3 - Detailed Neurological Exam: Coma Scale Eye Opening: Spontaneous Verbal Response: Oriented Motor Response: Obey commands Jordyn Coma Scale Total: 15 - Routine Psychiatric Exam Present: normal affect - Urinary Catheter Management Indwelling Urethral Catheter Cath placed during this visit: yes, but has since been removed by the nurse Reason for continuing: Hourly intake/output Insertion date: 09/08/18 Insertion time: 22:52 Removal date: 09/17/18 Removal time: 09:10 Results 09/25/18 05:05 09/26/18 06:42 Cardiac Enzymes 09/25/18 09/26/18 Range/Units 05:05 06:42 AST 17 17 (15-37) U/L Coagulation 09/25/18 09/25/18 09/26/18 Range/Units 05:05 05:05 06:42 PT 15.7 H 16.3 H (9.8-11.6) sec APTT 68.2 H D 74.1 H (23.4-31.7) sec CBC 09/25/18 Range/Units 05:05 WBC 6.0 (4.0-11.0) th/mm3 RBC 4.73 (4.00-5.30) mil/mm3 Hgb 12.4 (11.6-15.3) gm/dL Hct 38.7 (35.0-46.0) % Plt Count 417 (150-450) th/mm3 Comprehensive Metabolic Panel 09/25/18 09/26/18 Range/Units 05:05 06:42 Sodium 135 L 133 L (136-145) meq/L Potassium 3.9 4.1 (3.5-5.1) meq/L Chloride 92 L 96 L (98-107) meq/L Carbon Dioxide 25.3 23.2 (21.0-32.0) meq/L BUN 60 H 46 H (7-18) mg/dL Creatinine 9.70 H 7.88 H (0.50-1.00) mg/dL Calcium 9.5 10.1 (8.5-10.1) mg/dL AST 17 17 (15-37) U/L ALT 24 22 (10-53) U/L Alkaline Phosphatase 93 87 (45-117) U/L Total Protein 9.5 H 9.5 H (6.4-8.2) g/dL Albumin 3.8 3.7 (3.4-5.0) g/dL Intake and Output 09/26/18 09/26/18 09/26/18 06:59 14:59 22:59 Intake Total 490 / 490 Output Total 200 / 200 5000 / 5000 Balance 290 / 290 -5000 / -5000 Intake: IV 250 / 250 Heparin/D5W 25,000 U/250 mL 25, 250 / 250 000 unit In 250 ml @ Per Protocol IV.CONT TITRATE PRN Rx #:[id number] Oral 240 / 240 Output: Urine 200 / 200 Hemodialysis Amount 5000 / 5000 Other: Date of Last Bowel Movement 09/25/18 # Bowel Movements 2 Weight 158.1 kg - Imaging and Cardiology Imaging: Impressions Central Venous Line 09/23/18 00:00 CONCLUSION: 1. Uncomplicated venous catheter change as above. Chest X-Ray 09/26/18 00:00 CONCLUSION: 1. Stable cardiomegaly. 2. Minimal discoid atelectasis within the left mid lung. 3. No evidence of pulmonary vascular congestion or pneumonia. Assessment and Plan - Assessment (1) CHF (congestive heart failure) Code(s): I50.9 - Heart failure, unspecified Status: Acute (2) Cardiomyopathy Code(s): I42.9 - Cardiomyopathy, unspecified Status: Acute (3) Acute kidney failure Code(s): N17.9 - Acute kidney failure, unspecified Status: Acute (4) Respiratory failure Code(s): J96.90 - Respiratory failure, unspecified, unspecified whether with hypoxia or hypercapnia Status: Acute (5) Obesity Code(s): E66.9 - Obesity, unspecified Status: Acute - Plan Unable to titrate carvedilol due to hypotension. We will continue with current CHF treatment plan. Increase activity as patient tolerates, PT. Continue to monitor the patient on telemetry. We will continue to follow the patient during her hospitalization. The patient was seen and evaluated by Dr. Law who participated in care, management and decision making. - Attending Attestation Patient seen and examined. I reviewed and agree with the evaluation and plan as presented. Continue tx for CHF. Continuing HD. Increase activity, PT. (5) Obesity Qualifiers: Obesity classification: adult class 3 (BMI >= 40)
[2018-09-27] MEDS: Heparin Drip 25,000 UNIT/250 ML BAG IV.CONT PRN ×2 (00:30→18:46)
[2018-09-27] MEDS: Insulin NovoLIN Regular Correctional Sugar Inj SQ SCH ×6 (03:20→23:23)
[2018-09-27] MEDS: Oral Hygiene Kit OROPHARYNG SCH ×4 (03:20→23:24)
--- NOTE | 2018-09-27 04:57 | XR ---
EXAM DATE: 09/27/2018 4:50 AM EST AGE/SEX: 47 years / Female INDICATIONS: Respiratory failure. CLINICAL DATA: This is the patient's initial encounter. Patient reports that signs and symptoms have been present for 3 weeks and indicates a pain score of 0/10. MEDICAL/SURGICAL HISTORY: . Congestive heart failure. Respiratory failure. Atrial flutter. Non -responsive. [place] [facility] [place]26/[place]. . FINDINGS: Mild perihilar and basilar atelectasis seen bilaterally. No pleural effusion demonstrated. No pneumot horax. Heart size stable, upper limits of normal. Right IJ line with tip at atriocaval junction again noted. CONCLUSION: Mild bilateral perihilar and basilar consolidation developing. Electronically signed by: Dillan Branch MD Board Certified Radiologist 09/27/2018 4:56 AM EST
[2018-09-27 06:17] LABS: Activated Partial Thrombo Time 83.6 sec (23.4-31.7); INR 2.1 Ratio; Prothrombin Time 21.6 sec (9.8-11.6)
[2018-09-27 06:18] LABS: Hematocrit 39.3 % (35.0-46.0); Hemoglobin 12.9 gm/dL (11.6-15.3); Mean Corpuscular Hemoglobin 26.9 pg (27.0-34.0); Mean Corpuscular Volume 81.5 fL (80.0-100.0); Mean Platelet Volume 7.9 fL (7.0-11.0); Platelet Count 368 th/mm3 (150-450); Red Blood Count 4.81 mil/mm3 (4.00-5.30); Red Cell Distribution Width 17.5 % (11.6-17.2); White Blood Count 7.4 th/mm3 (4.0-11.0)
[2018-09-27 06:37] LABS: Albumin 3.9 g/dL (3.4-5.0); Anion Gap 14 meq/L (5-15); Aspartate Aminotransferase 24 U/L (15-37); Blood Urea Nitrogen 42 mg/dL (7-18); Calcium 10.4 mg/dL (8.5-10.1); Carbon Dioxide 26.9 meq/L (21.0-32.0); Chloride 92 meq/L (98-107); Glomerular Filtration Rate 6 mL/min (>89); Glucose,Random 104 mg/dL (74-106); Potassium 4.2 meq/L (3.5-5.1); Sodium 133 meq/L (136-145)
[2018-09-27 06:38] LABS: Alanine Aminotransferase 31 U/L (10-53)
[2018-09-27 06:40] LABS: Alkaline Phosphatase 101 U/L (45-117); Total Protein 9.8 g/dL (6.4-8.2)
[2018-09-27] MEDS: Chlorhexidine 0.12% Oral Kit 15 ML UDC OROPHARYNG SCH ×2 (07:22→20:52)
[2018-09-27] MEDS: Senna/Docusate Sodium 8.6/50 MG Tablet PO SCH ×2 (08:19→20:53)
[2018-09-27] MEDS: Famotidine PF Inj 20 MG/2 ML Vial IV.PUSH SCH ×2 (08:20→21:49)
[2018-09-27] MEDS: Nystatin 100,000 UNITS/GM Powder 15 GM Bottle TOPICAL SCH ×2 (08:21→21:49)
--- NOTE | 2018-09-27 11:55 | P.PNNP ---
Subjective Interval history: Patient was seen on room air, no distress, no complaints. Patient stated she has made no urine today. Patient had dialysis yesterday, 2.5 L removed. Patient to be dialyzed tomorrow. <Venkatesh Bernal - Last Filed: 09/27/18 11:52> Physical Exam Vital signs: Vital Signs 09/26/18 12:00 09/26/18 16:00 09/26/18 19:40 Temperature 98.2 F 98.0 F Pulse Rate 94 H 162 H 93 H Respiratory Rate 18 18 Blood Pressure 90/57 L 107/53 L Pulse Oximetry 96 95 09/26/18 20:00 09/26/18 20:26 09/26/18 23:23 Temperature 97.5 F L Pulse Rate 96 H 99 H Respiratory Rate 18 Blood Pressure 119/62 Pulse Oximetry 94 L 97 09/27/18 00:00 09/27/18 03:18 09/27/18 04:00 Temperature 98.5 F Pulse Rate 96 H 90 90 Respiratory Rate 20 Blood Pressure 105/55 L Pulse Oximetry 96 09/27/18 08:00 09/27/18 09:46 Temperature 98.0 F Pulse Rate 92 H Respiratory Rate 12 Blood Pressure 105/55 L Pulse Oximetry 95 95 Intake & Output 09/26/18 09/27/18 09/27/18 18:59 06:59 18:59 Intake Total 420 / 420 730 / 730 Output Total 5000 / 5000 Balance -4580 / -4580 730 / 730 Weight 153.4 kg Intake: IV 250 / 250 Heparin/D5W 25,000 U/250 mL 25, 250 / 250 000 unit In 250 ml @ Per Protocol IV.CONT TITRATE PRN Rx #:[id number] Oral 420 / 420 480 / 480 Output: Hemodialysis Amount 5000 / 5000 Other: # Voids 1 0 Date of Last Bowel Movement 09/25/18 # Bowel Movements 0 Narrative: GENERAL: NAD, morbidly obese. NECK: Supple, trachea midline. HEENT: unremarkable. CARDIOVASCULAR: Regular rate and rhythm. RESPIRATORY: Distant breath sounds. Clear to auscultation bilaterally. GASTROINTESTINAL: Abdomen soft, obese ,non-tender. MUSCULOSKELETAL: Mild edema. Neuro:No gross deficits. - Urinary Catheter Management Indwelling Urethral Catheter Cath placed during this visit: yes, but has since been removed by the nurse Reason for continuing: Hourly intake/output Insertion date: 09/08/18 Insertion time: 22:52 Removal date: 09/17/18 Removal time: 09:10 <Venkatesh Bernal - Last Filed: 09/27/18 11:52> Vital signs: Vital Signs 09/26/18 16:00 09/26/18 19:40 09/26/18 20:00 Temperature 98.2 F 98.0 F Pulse Rate 162 H 93 H 96 H Respiratory Rate 18 18 Blood Pressure 90/57 L 107/53 L Pulse Oximetry 96 95 09/26/18 20:26 09/26/18 23:23 09/27/18 00:00 Temperature 97.5 F L Pulse Rate 99 H 96 H Respiratory Rate 18 Blood Pressure 119/62 Pulse Oximetry 94 L 97 09/27/18 03:18 09/27/18 04:00 09/27/18 08:00 Temperature 98.5 F 98.0 F Pulse Rate 90 90 92 H Respiratory Rate 20 12 Blood Pressure 105/55 L 105/55 L Pulse Oximetry 96 95 09/27/18 09:46 09/27/18 12:00 Temperature 98.2 F Pulse Rate 94 H Respiratory Rate 15 Blood Pressure 115/66 Pulse Oximetry 95 96 Intake & Output 09/26/18 09/27/18 09/27/18 18:59 06:59 18:59 Intake Total 420 / 420 730 / 730 Output Total 5000 / 5000 Balance -4580 / -4580 730 / 730 Weight 153.4 kg Intake: IV 250 / 250 Heparin/D5W 25,000 U/250 mL 25, 250 / 250 000 unit In 250 ml @ Per Protocol IV.CONT TITRATE PRN Rx #:[id number] Oral 420 / 420 480 / 480 Output: Hemodialysis Amount 5000 / 5000 Other: # Voids 1 0 Date of Last Bowel Movement 09/25/18 # Bowel Movements 0 - Urinary Catheter Management Indwelling Urethral Catheter Cath placed during this visit: no <Chris Majano - Last Filed: 09/27/18 15:06> Assessment and Plan - Assessment (1) Acute kidney failure Code(s): N17.9 - Acute kidney failure, unspecified Status: Acute Plan: Baseline renal function is not known. Could have developed contrast nephropathy after CTA. Has suffered ATN. Patient has become dialysis dependent. Patient had dialysis yesterday, 2.5 L removed. Patient to be dialyzed tomorrow. Monitor for renal recovery. Monitor urine output. (2) Respiratory failure Code(s): J96.90 - Respiratory failure, unspecified, unspecified whether with hypoxia or hypercapnia Status: Acute Plan: resolved. (3) Obesity Code(s): E66.9 - Obesity, unspecified Status: Acute Qualifiers: Obesity classification: adult class 3 (BMI >= 40) Plan: patient has obesity-hypoventilation syndrome. (4) Pulmonary embolism Code(s): I26.99 - Other pulmonary embolism without acute cor pulmonale Status : Acute Plan: On Heparin/Coumadin. <Venkatesh Bernal - Last Filed: 09/27/18 11:52> - Assessment (1) Acute kidney failure Code(s): N17.9 - Acute kidney failure, unspecified Status: Acute (2) Respiratory failure Code(s): J96.90 - Respiratory failure, unspecified, unspecified whether with hypoxia or hypercapnia Status: Acute (3) Obesity Code(s): E66.9 - Obesity, unspecified Status: Acute Qualifiers: Obesity classification: adult class 3 (BMI >= 40) (4) Pulmonary embolism Code(s): I26.99 - Other pulmonary embolism without acute cor pulmonale Status : Acute - Attending Attestation patient was seen and examined. Agree with above assessment and plan. Dialysis tomorrow. No signs of renal recovery as yet. She will continue to need dialysis. Diagnosis is LEIDA, so no need for AVF as yet. <Chris Majano - Last Filed: 09/27/18 15:06>
--- NOTE | 2018-09-27 12:18 | P.PNPAL ---
Reason for Visit Reason for visit: a. To assist with evaluation and management of symptoms including: dyspnea, pain, debility. b. To assist medical decision maker(s) with: better understanding of current medical conditions; weighing benefits/burdens of medical treatment options; making medical treatment decisions. Subjective Subjective/Interval History: Follow-up medically necessary for symptom management. Patient is now out of ICU. Seen and examined in her room on 4 N. in the presence of her son. Patient denies pain, short of breath. Patient appears fatigued. She reports that she had hemodialysis yesterday. Patient has also been not been wearing her CPAP machine at hour of sleep. She is dozing off during conversation. Encourage patient to use CPAP at night. Patient is also requesting to get out of bed and sit up in a chair. Physical therapy following. Patient denying poor appetite but states that she has not been eating the food because she does not like it. Explained to patient that because of her medical condition she gets a diet that`s tailored for a patient with cardiac and renal medical issues. Laboratory workup 09/27/18 revealing sodium 133, potassium 4.2, BUN/creatinine 42/7.27, estimated GFR 6, calcium 10.4, total protein 9.8, albumin 3.9. No significant improvement in her renal function despite hemodialysis. Anuric. Briefly discussed possible need for dialysis long-term. Nephrology following. Case discussed with bedside RN, notified E that patient is interested in getting out of bed to a chair which is beneficial for patient. Family/Friend Interactions: Patient's son at bedside during conversation. . Advance Directives Living Will: Never completed Health Care Surrogate: Copy in medical record Durable Power of [employer] Buster: Never completed Health Care Surrogate Name and Number: [facility], Avelina Hadley, daughter: [phone] [phone] Documented care wishes:: No Living Will. Completed designation of health care surrogate on 09/16/18 naming her daughter Avelina Hadley as ANKUR. Objective Vital Signs: Vital Signs 09/26/18 16:00 09/26/18 19:40 09/26/18 20:00 Temperature 98.2 F 98.0 F Pulse Rate 162 H 93 H 96 H Respiratory Rate 18 18 Blood Pressure 90/57 L 107/53 L Pulse Oximetry 96 95 09/26/18 20:26 09/26/18 23:23 09/27/18 00:00 Temperature 97.5 F L Pulse Rate 99 H 96 H Respiratory Rate 18 Blood Pressure 119/62 Pulse Oximetry 94 L 97 09/27/18 03:18 09/27/18 04:00 09/27/18 08:00 Temperature 98.5 F 98.0 F Pulse Rate 90 90 92 H Respiratory Rate 20 12 Blood Pressure 105/55 L 105/55 L Pulse Oximetry 96 95 09/27/18 09:46 Temperature Pulse Rate Respiratory Rate Blood Pressure Pulse Oximetry 95 Intake & Output 09/26/18 09/27/18 09/27/18 18:59 06:59 18:59 Intake Total 420 / 420 730 / 730 Output Total 5000 / 5000 Balance -4580 / -4580 730 / 730 Weight 153.4 kg Intake: IV 250 / 250 Heparin/D5W 25,000 U/250 mL 25, 250 / 250 000 unit In 250 ml @ Per Protocol IV.CONT TITRATE PRN Rx #:[id number] Oral 420 / 420 480 / 480 Output: Hemodialysis Amount 5000 / 5000 Other: # Voids 1 0 Date of Last Bowel Movement 09/25/18 # Bowel Movements 0 Physical Exam: CONSTITUTIONAL/GENERAL: This is an overweight female, on mech vent. TUBES/LINES/DRAINS: right subclavian central line, vas-cath, PIV, nasal cannula. Bariatric bed. SKIN: No jaundice, rashes, or lesions. Ecchymoses on upper extremities. No wounds seen anteriorly. Normothermic. EYES: pupils equal and reactive. ENT: hearing adequate. Nose without bleeding or purulent drainage. Dry oral mucosa. CARDIOVASCULAR: Distant heart sounds most likely due to body habitus. S1, S2 normal. No JVD. RESPIRATORY/CHEST: Unlabored respirations. Diminished, breath sounds. GASTROINTESTINAL: Abdomen protuberant, soft, nondistended. No guarding. Active bowel sounds. GENITOURINARY: Without palpable bladder distension. MUSCULOSKELETAL: Extremities with edema. NEUROLOGICAL: Awake and alert, oriented to self, place and situation. Follows commands. Speech -soft voice, clear PSYCHIATRIC: Calm. Diagnostic Tests Laboratory: Laboratory Results - last 72 hr 09/24/18 09/24/18 09/24/18 15:35 16:13 20:10 WBC RBC Hgb Hct MCV MCH MCHC RDW Plt Count MPV PT INR APTT 46.2 H D Sodium Potassium Chloride Carbon Dioxide Anion Gap BUN Creatinine Estimated GFR POC Glucose 115 H 90 Random Glucose Calcium Phosphorus Magnesium Total Bilirubin AST ALT Alkaline Phosphatase Total Protein Albumin 09/25/18 09/25/18 09/25/18 00:19 04:26 05:05 WBC 6.0 RBC 4.73 Hgb 12.4 Hct 38.7 MCV 81.8 MCH 26.2 L MCHC 32.0 RDW 17.2 Plt Count 417 MPV 8.1 PT INR APTT Sodium Potassium Chloride Carbon Dioxide Anion Gap BUN Creatinine Estimated GFR POC Glucose 111 H 106 Random Glucose Calcium Phosphorus Magnesium Total Bilirubin AST ALT Alkaline Phosphatase Total Protein Albumin 09/25/18 09/25/18 09/25/18 05:05 05:05 05:05 WBC RBC Hgb Hct MCV MCH MCHC RDW Plt Count MPV PT 15.7 H INR 1.6 APTT 68.2 H D Sodium 135 L Potassium 3.9 Chloride 92 L Carbon Dioxide 25.3 Anion Gap 18 H BUN 60 H Creatinine 9.70 H Estimated GFR 4 L POC Glucose Random Glucose 88 Calcium 9.5 Phosphorus 8.7 H D Magnesium Total Bilirubin 0.3 AST 17 ALT 24 Alkaline Phosphatase 93 Total Protein 9.5 H Albumin 3.8 09/25/18 09/25/18 09/25/18 07:57 12:42 17:04 WBC RBC Hgb Hct MCV MCH MCHC RDW Plt Count MPV PT INR APTT Sodium Potassium Chloride Carbon Dioxide Anion Gap BUN Creatinine Estimated GFR POC Glucose 104 100 113 H Random Glucose Calcium Phosphorus Magnesium Total Bilirubin AST ALT Alkaline Phosphatase Total Protein Albumin 09/25/18 09/26/18 09/26/18 21:06 00:13 04:30 WBC RBC Hgb Hct MCV MCH MCHC RDW Plt Count MPV PT INR APTT Sodium Potassium Chloride Carbon Dioxide Anion Gap BUN Creatinine Estimated GFR POC Glucose 103 104 111 H Random Glucose Calcium Phosphorus Magnesium Total Bilirubin AST ALT Alkaline Phosphatase Total Protein Albumin 09/26/18 09/26/18 09/26/18 06:42 06:42 07:06 WBC RBC Hgb Hct MCV MCH MCHC RDW Plt Count MPV PT 16.3 H INR 1.6 APTT 74.1 H Sodium 133 L Potassium 4.1 Chloride 96 L Carbon Dioxide 23.2 Anion Gap 14 BUN 46 H Creatinine 7.88 H Estimated GFR 6 L POC Glucose 101 Random Glucose 99 Calcium 10.1 Phosphorus Magnesium 2.1 Total Bilirubin 0.3 AST 17 ALT 22 Alkaline Phosphatase 87 Total Protein 9.5 H Albumin 3.7 09/26/18 09/26/18 09/26/18 12:00 16:55 20:14 WBC RBC Hgb Hct MCV MCH MCHC RDW Plt Count MPV PT INR APTT Sodium Potassium Chloride Carbon Dioxide Anion Gap BUN Creatinine Estimated GFR POC Glucose 113 H 90 118 H Random Glucose Calcium Phosphorus Magnesium Total Bilirubin AST ALT Alkaline Phosphatase Total Protein Albumin 09/27/18 09/27/18 09/27/18 03:17 05:46 05:46 WBC 7.4 RBC 4.81 Hgb 12.9 Hct 39.3 MCV 81.5 MCH 26.9 L MCHC 33.0 RDW 17.5 H Plt Count 368 MPV 7.9 PT INR APTT Sodium 133 L Potassium 4.2 Chloride 92 L Carbon Dioxide 26.9 Anion Gap 14 BUN 42 H Creatinine 7.27 H Estimated GFR 6 L POC Glucose 114 H Random Glucose 104 Calcium 10.4 H Phosphorus Magnesium Total Bilirubin 0.3 AST 24 ALT 31 Alkaline Phosphatase 101 Total Protein 9.8 H Albumin 3.9 09/27/18 09/27/18 05:46 08:19 WBC RBC Hgb Hct MCV MCH MCHC RDW Plt Count MPV PT 21.6 H INR 2.1 APTT 83.6 H Sodium Potassium Chloride Carbon Dioxide Anion Gap BUN Creatinine Estimated GFR POC Glucose 119 H Random Glucose Calcium Phosphorus Magnesium Total Bilirubin AST ALT Alkaline Phosphatase Total Protein Albumin Result Diagrams: 09/27/18 05:46 09/27/18 05:46 Imaging: Abdomen Ultrasound 09/09/18 00:00 CONCLUSION: 1. Enlarged echogenic liver suggesting fatty infiltration 2. , Gallbladder not visualized Chest CTA 09/09/18 00:00 CONCLUSION: 1. Very limited examination due to patient body habitus. 2. Elongated filling defect in the right pulmonary artery suspicious for pulmonary embolus. Prominent artifact related to patient body habitus is seen through out the central pulmonary arteries limiting the evaluation. The segmental and subsegmental branches cannot be effectively evaluated on this study. Nuclear medicine VQ scan could be performed for further evaluation. 3. Moderate diffuse cardiomegaly. 4. Moderate-sized area of right lower lobe pulmonary consolidation. 5. Bilateral dependent lower lobe atelectasis. Head CT 09/09/18 00:00 CONCLUSION: No acute intracranial findings. . Venous Doppler Study 09/09/18 00:00 CONCLUSION: 1. Negative exam with no evidence of deep venous thrombosis. Central Venous Line 09/23/18 00:00 CONCLUSION: 1. Uncomplicated venous catheter change as above. Chest X-Ray 09/27/18 00:00 CONCLUSION: Mild bilateral perihilar and basilar consolidation developing. Procedures: * 09/12/18 - a line, vas-cath placement, HD started * 09/08/18 - intubated Assessment and Plan - Disease Oriented Problem List (1) Acute kidney failure (2) Respiratory failure (3) Obesity (4) Pulmonary embolism - Symptom Scale (2) Dyspnea 0-10 Scale: Unable to quantify (3) Debility 0-10 Scale: Unable to quantify Pertinent Non-Medical Issues: Psychosocial: . 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 Has 1 daughter, Avelina. Spiritual: [employer] valerie. Legal: Patient is currently capacitated to make her own health care decisions. No Living Will. Completed designation of health care surrogate on 09/16/18 naming her daughter Avelina Hadley as HCS. Ethical issues impacting care: No known concerns at this time. Important Contacts: * Avelina Hadley, daughter/ health care surrogate: [phone] * Audra (sp?) Ramana, spouse: [phone] Prognosis: Mrs. Hadley is a 47 year old chronically, critically ill patient with multiple comorbidities now with respiratory, renal and heart failure. Overall prognosis appears poor. Code Status: Full Code Plan: * Decision maker: Patient is capacitated to make her own health care decisions. No Living Will. Completed designation of health care surrogate on 09/16/18 naming her daughter Avelina Hadley as HCS. * FULL CODE -confirmed with pt on 09/16/18 post medical extubation, she desires reintubation if needed. * Medical update provided. Patient desires continued aggressive care including FULL CODE. Patient is willing to continue with aggressive up until she is in a vegetative state. She expresses if she is at a point where she does not know who she is, unable to identify her family, not able to move or eat, she wants to be left to peacefully. * SYMPTOMS: Pain: denies pain during my visit. Potential pain sources include tubes, bedbound status, multiorgan failure. Dyspnea:medically extubated on 09/16. On oxygen via nasal cannula, tolerating well. Denies SOB. Debility: due to elevated BMI, recent, respiratory, renal and heart failure. Physical therapy following. No new medication recommendations at this time. * Palliative care will continue to follow to assist with symptom management and further clarification of goals of medical treatment as needed. . Attestation Attestation: To help prompt me to consider important information that might be impacting today's encounter and assessment, information from prior notes written by myself or my colleagues may have been "brought forward" into today's note. My signature on this note, however, is an attestation that I personally performed the exam, history, and/or decision-making noted today, and, unless otherwise indicated, the interactions with patient, family, and staff as well as the review of records all occurred today. I also attest that the listed assessment and stated plan reflect my best clinical judgment today based on the combination of historical information, prior notes, and today's exam/ interactions. When time spent is documented, it refers only to time spent today by the signer, or if indicated, combined time spent today by collaborating physician/nurse practitioner.
--- NOTE | 2018-09-27 12:19 | P.PN ---
Subjective Interval history: Alert and on O2 2 L. Was dialyzed. No SOB at rest. Physical Exam Vital signs: Vital Signs 09/26/18 16:00 09/26/18 19:40 09/26/18 20:00 Temperature 98.2 F 98.0 F Pulse Rate 162 H 93 H 96 H Respiratory Rate 18 18 Blood Pressure 90/57 L 107/53 L Pulse Oximetry 96 95 09/26/18 20:26 09/26/18 23:23 09/27/18 00:00 Temperature 97.5 F L Pulse Rate 99 H 96 H Respiratory Rate 18 Blood Pressure 119/62 Pulse Oximetry 94 L 97 09/27/18 03:18 09/27/18 04:00 09/27/18 08:00 Temperature 98.5 F 98.0 F Pulse Rate 90 90 92 H Respiratory Rate 20 12 Blood Pressure 105/55 L 105/55 L Pulse Oximetry 96 95 09/27/18 09:46 Temperature Pulse Rate Respiratory Rate Blood Pressure Pulse Oximetry 95 Intake & Output 09/26/18 09/27/18 09/27/18 18:59 06:59 18:59 Intake Total 420 / 420 730 / 730 Output Total 5000 / 5000 Balance -4580 / -4580 730 / 730 Weight 153.4 kg Intake: IV 250 / 250 Heparin/D5W 25,000 U/250 mL 25, 250 / 250 000 unit In 250 ml @ Per Protocol IV.CONT TITRATE PRN Rx #:[id number] Oral 420 / 420 480 / 480 Output: Hemodialysis Amount 5000 / 5000 Other: # Voids 1 0 Date of Last Bowel Movement 09/25/18 # Bowel Movements 0 Narrative: GENERAL: NAD, morbidly obese. NECK: Supple, trachea midline. HEENT: unremarkable. CARDIOVASCULAR: Regular rate and rhythm. RESPIRATORY: Distant breath sounds. Occ Crackles at bases. GASTROINTESTINAL: Abdomen soft, obese ,non-tender. MUSCULOSKELETAL: Mild edema. Neuro:No gross deficits. - Urinary Catheter Management Indwelling Urethral Catheter Cath placed during this visit: yes, but has since been removed by the nurse Reason for continuing: Hourly intake/output Insertion date: 09/08/18 Insertion time: 22:52 Removal date: 09/17/18 Removal time: 09:10 Results - Labs CBC & Chem 7: 09/27/18 05:46 09/27/18 05:46 Laboratory Results - last 24 hr 09/26/18 09/26/18 09/27/18 16:55 20:14 03:17 WBC RBC Hgb Hct MCV MCH MCHC RDW Plt Count MPV PT INR APTT Sodium Potassium Chloride Carbon Dioxide Anion Gap BUN Creatinine Estimated GFR POC Glucose 90 118 H 114 H Random Glucose Calcium Total Bilirubin AST ALT Alkaline Phosphatase Total Protein Albumin 09/27/18 09/27/18 09/27/18 05:46 05:46 05:46 WBC 7.4 RBC 4.81 Hgb 12.9 Hct 39.3 MCV 81.5 MCH 26.9 L MCHC 33.0 RDW 17.5 H Plt Count 368 MPV 7.9 PT 21.6 H INR 2.1 APTT 83.6 H Sodium 133 L Potassium 4.2 Chloride 92 L Carbon Dioxide 26.9 Anion Gap 14 BUN 42 H Creatinine 7.27 H Estimated GFR 6 L POC Glucose Random Glucose 104 Calcium 10.4 H Total Bilirubin 0.3 AST 24 ALT 31 Alkaline Phosphatase 101 Total Protein 9.8 H Albumin 3.9 09/27/18 09/27/18 08:19 12:04 WBC RBC Hgb Hct MCV MCH MCHC RDW Plt Count MPV PT INR APTT Sodium Potassium Chloride Carbon Dioxide Anion Gap BUN Creatinine Estimated GFR POC Glucose 119 H 123 H Random Glucose Calcium Total Bilirubin AST ALT Alkaline Phosphatase Total Protein Albumin - Imaging Impressions Central Venous Line 09/23/18 00:00 CONCLUSION: 1. Uncomplicated venous catheter change as above. Chest X-Ray 09/27/18 00:00 CONCLUSION: Mild bilateral perihilar and basilar consolidation developing. Assessment and Plan - Assessment (1) Sleep apnea treated with nocturnal BiPAP Code(s): G47.30 - Sleep apnea, unspecified Status: Acute (2) Pneumonia Code(s): J18.9 - Pneumonia, unspecified organism Status: Acute (3) Acute kidney failure Code(s): N17.9 - Acute kidney failure, unspecified Status: Acute (4) Respiratory failure Code(s): J96.90 - Respiratory failure, unspecified, unspecified whether with hypoxia or hypercapnia Status: Acute (5) Obesity Code(s): E66.9 - Obesity, unspecified Status: Acute (6) Pulmonary embolism Code(s): I26.99 - Other pulmonary embolism without acute cor pulmonale Status : Acute (7) Chronic pain Code(s): G89.29 - Other chronic pain Status: Acute (8) Dyspnea Code(s): R06.00 - Dyspnea, unspecified Status: Acute (9) Debility Code(s): R53.81 - Other malaise Status: Acute (10) CHF (congestive heart failure) Code(s): I50.9 - Heart failure, unspecified Status: Acute - Plan 1. O2 3 L N/C daytime 2. Dialysis as planned in am. 3. Duoneb nebs qid prn 4. Continue CPAP at HS daily 5. Rehab placement 6. Continue PT and OT
--- NOTE | 2018-09-27 12:33 | P.PNIM ---
Subjective Interval history: Patient seen and evaluated this morning at bedside. Patient without acute complaints of subjective fever chills. Patient reports that she is breathing comfortably on 3 L nasal cannula. Patient ready has CPAP which she is using at bedtime. Discussed with patient that she may need dialysis for a prolonged period of time until she has recovery. Patient reports that she has not urinated in 2 days but 2 days ago was able to produce a good amount of urine. Patient with dialysis yesterday removed 2.5 L and is again scheduled for dialysis tomorrow. Patient is still waiting for therapeutic levels of her Coumadin level with Lovenox bridging and once therapeutic will discontinue the Lovenox. Physical Exam Vital signs: Last Vital Signs Temp 98.0 F 09/27/18 08:00 Pulse 92 H 09/27/18 08:00 Resp 12 09/27/18 08:00 BP 105/55 L 09/27/18 08:00 Pulse Ox 95 09/27/18 09:46 Intake & Output 09/25/18 09/26/18 09/27/18 09/28/18 06:59 06:59 06:59 06:59 Intake Total 970 / 970 1040 / 1040 1150 / 1150 Output Total 2700 / 2700 5000 / 5000 Balance 970 / 970 -1660 / -1660 -3850 / -3850 Weight 157.5 kg 158.1 kg 153.4 kg General: No acute distress, conversational HEENT: EOMI, PERRLA. On 3 L nasal cannula Cardiovascular: S1/S2 Respiratory: Decreased breath sounds at the base of the lung due to body habitus but no expiratory muscle use Gastrointestinal: Soft, nontender, nondistended, no guarding or rebound appreciated. Ext: No edema Urinary Catheter Management Indwelling Urethral Catheter: Cath placed during this visit: yes, but has since been removed by the nurse Insertion date: 09/08/18 Insertion time: 22:52 Removal date: 09/17/18 Removal time: 09:10 Results Labs CBC & Chem 7: 09/27/18 05:46 09/27/18 05:46 Imaging Imaging: Impressions Central Venous Line 09/23/18 00:00 CONCLUSION: 1. Uncomplicated venous catheter change as above. Chest X-Ray 09/27/18 00:00 CONCLUSION: Mild bilateral perihilar and basilar consolidation developing. Assessment and Plan Plan 47-year-old morbidly obese female was brought in emergently department by EMS due to respiratory failure and unresponsiveness with evidence of respiratory distress for which she was initially trialed on BiPAP but failed ultimately resulting in intubation and transfer to critical care. Patient has subsequently been extubated but during hospital course was found to have evidence of atrial fibrillation which is possibly paroxysmal in nature. Consultation has been appreciated by cardiology and patient is currently being transitioned over to Coumadin. Consultation also appreciated by nephrology for renal failure for which patient has been started on hemodialysis. Hospital course complicated pulmonary embolism currently on Coumadin Pulmonary: acute hypoxemic respiratory failure, suspected pneumonia (community -acquired), pulmonary embolism Supplemental oxygen 3 L nasal cannula during the daytime and CPAP at night Currently improving and patient stabilized Extubated 09/16/2018, maintaining airway, maintaining oxygen saturation CTA chest: Very limited examination due to patient body habitus. Elongated filling defect in the right pulmonary artery suspicious for PE. Moderate-sized area consolidation of right lower lobe. Bilateral dependent lower lobe atelectasis. Continue Heparin drip. Monitor PTT per protocol. Bridging to Coumadin. INR therapeutic. If stable and therapeutic in the morning will discontinue heparin drip. INR currently 2.1. - Continue scheduled and as needed breathing treatments. EzPAP, Acapella Chest x-ray 09/26: No evidence of pulmonary vascular congestion or edema. Cardiology: Acute systolic heart failure/Pulmonary edema Started on milrinone 09/13/2018 to maintain cardiac index more than 2.2. Discontinued 09/18/2018 Echo 09/09: Technically difficult study making assessment of left ventricular function and wall motion. Suboptimal. Grossly, left ventricular function appears severely reduced. probable global hypokinesis. Repeat limited echo , very poor windows difficult to interpret Cardiology Dr. Law following. Continue fluid removal with hemodialysis Nephrology: Acute kidney failure Patient currently on hemodialysis. Monitor renal function, I/O's, avoid nephrotoxins. Fluid removal with hemodialysis started 09/12/[address] Majano. Scheduled hemodialysis Alt days US abdomen: No masses or hydronephrosis, enlarged liver likely due to fatty infiltration. -Case briefly reviewed with nephrology team. We will follow-up on anticipated dialysis needs as an outpatient.? This patient need vascular evaluation or is anticipated recovery expected Infectious disease: Probable pneumonia/Sepsis Discontinued Zyvox which patient has been taking since 09/16. Strep pneumonia and Legionella urinary Ag negative 09/09 Blood, sputum and urine cx: All negative to date Chest x-ray 09/26 without evidence of pneumonia or pulmonary vascular congestion DVT GI prophylaxis -SCDs -Heparin drip transition to Coumadin as above -Pepcid Progress Note: Quality VTE Deep Vein Thrombosis/Pulmonary Embolism Present on Admission: Yes
[2018-09-27] MEDS ORDERED: Fluconazole 100 MG Tablet PO ONE (13:00)
--- NOTE | 2018-09-27 13:08 | P.PNCA ---
Subjective Interval history: Patient denies any CP, pressure, palpitations, dizziness, edema or SOB. Patient is sitting at the side of the bed and states she is feeling better. Medications and Allergies Allergies Allergy/AdvReac Type Severity Reaction Status Date / Time Penicillins Allergy Hives Verified 09/18/18 00:28 lisinopril AdvReac Severe Anaphylaxis Verified 09/18/18 00:28 Home Medications Medication Instructions Recorded Confirmed Type allopurinol 100 mg PO DAILY 09/11/18 09/11/18 History cyclobenzaprine 5 mg PO TID 09/11/18 09/11/18 History furosemide 40 mg PO DAILY 09/11/18 09/11/18 History hydralazine 50 mg PO Q8HR 09/11/18 09/11/18 History insulin detemir U-100 [Levemir 24 unit SUBCUT Q12HR 09/11/18 09/11/18 History U-100 Insulin] insulin regular human [Novolin R 1 sliding scale dose SUBCUT UD 09/11/18 History Regular U-100 Insuln] levothyroxine 50 mcg PO DAILY 09/11/18 09/11/18 History meloxicam DAILY 09/11/18 History potassium chloride 20 meq PO DAILY 09/11/18 09/11/18 History pravastatin 40 mg PO HS 09/11/18 09/11/18 History pregabalin [Lyrica] 50 mg PO BID 09/11/18 09/11/18 History sertraline 50 mg PO HS 09/11/18 09/11/18 History tramadol 50 mg PO Q6H PRN 09/11/18 09/11/18 History Active Medications: Active Medications Acetaminophen (Tylenol) 650 mg PO Q6H PRN PRN Reason: PAIN 1-5 AND/OR FEVER >101F Last Admin: 09/26/18 00:17 Dose: 650 mg Acetaminophen (Tylenol) 650 mg PO UNSCH PRN PRN Reason: SEE LABEL COMMENTS Hydrocodone Bitart/Acetaminophen ([place] 7.5/325) 1 tab PO Q6H PRN PRN Reason: PAIN 6-10;IF ABLE TO TAKE PO Last Admin: 09/24/18 00:18 Dose: 1 tab Al Hydroxide/Mg Hydroxide (Milk Of Magnesia Liq) 30 ml PO Q12H PRN PRN Reason: Mild Constipation Albuterol (Duoneb Neb (Prn)) 1 ampul NEB Q2HR NEB PRN PRN Reason: WHEEZING Last Admin: 09/14/18 10:45 Dose: 1 ampul Albuterol (Duoneb Neb ([place])) 1 ampul NEB Q6HR NEB [facility] Bisacodyl (Dulcolax Supp) 10 mg RECTAL DAILY PRN PRN Reason: SEVERE CONSITIPATION Carvedilol (Coreg) 3.125 mg PO BID [facility] Last Admin: 09/27/18 08:22 Dose: Not Given Chlorhexidine Gluconate (Peridex 0.12% Oral Kit) 15 ml OROPHARYNG BID@0800, 2000 [facility] Last Admin: 09/27/18 07:22 Dose: Not Given Clonidine HCl (Catapres) 0.1 mg PO UNSCH PRN PRN Reason: SEE LABEL COMMENTS Cyclobenzaprine HCl (Flexeril) 10 mg PO Q8H PRN PRN Reason: SPASM Last Admin: 09/27/18 01:58 Dose: 10 mg Dextrose (D50w Vial) 50 ml IV.PUSH UNSCH PRN PRN Reason: PER HYPOGLYCEMIA PROTOCOL Famotidine (Pepcid Pf Inj) 10 mg IV.PUSH Q12HR [place] Last Admin: 09/27/18 08:20 Dose: 10 mg Gelatin (Gelfoam 12 Mm/7 Mm Topical) 1 foam TOPICAL PRN PRN PRN Reason: help stop bleeding from site Gentamicin Sulfate (Gentamicin Inj) 20 mg OTHER WITH DIALYSIS PRN PRN Reason: Dwell Gentamycin Lock Last Admin: 09/26/18 13:27 Dose: 20 mg Glucagon (Glucagon Inj) 1 mg OTHER PRN PRN PRN Reason: for Hypoglycemia Protocol Heparin Sodium (Porcine) (Heparin Inj) 8,000 units OTHER WITH DIALYSIS PRN PRN Reason: for machine prime Last Admin: 09/16/18 22:55 Dose: 2,500 units Heparin Sodium (Porcine) (Heparin Inj) 1,000 units OTHER WITH DIALYSIS PRN PRN Reason: Dwell Heparin to Fill Catheter Last Admin: 09/25/18 17:20 Dose: 1,000 units Heparin Sodium/Dextrose (Heparin/D5w 25,000 U/250 Ml) 25,000 unit in 250 mls @ 0 mls/hr IV.CONT TITRATE PRN; Protocol PRN Reason: Per Protocol Last Titration: 09/27/18 06:40 Dose: 1,400 units/hr, 14 mls/hr Albumin Human (Flexbumin 25% Inj) 100 mls @ 60 mls/hr IV.SIG WITH DIALYSIS PRN PRN Reason: hypotension / volume replace Last Infusion: 09/23/18 15:40 Dose: Infused Sodium Chloride (Ns Inj) 1,000 mls @ 0 mls/hr OTHER .Q0M PRN PRN Reason: for prime and rinse back Sodium Chloride (Ns Inj) 1,000 mls @ 200 mls/hr OTHER .Q5H PRN PRN Reason: for dialyzer flush PRN Sodium Chloride (Ns Inj) 1,000 mls @ 0 mls/hr IV.CONT .Q0M PRN PRN Reason: hypotension / volume replace Insulin Human Regular (Novolin R [place] Sugar Inj) 0 units SQ Q4HR [facility]; Protocol Last Admin: 09/27/18 12:04 Dose: Not Given Lactulose (Lactulose Liq) 30 ml PO DAILY PRN PRN Reason: SEVERE CONSITIPATION Lactulose (Lactulose Liq) 30 ml PO BID [facility] Last Admin: 09/27/18 08:20 Dose: Not Given Mannitol (Mannitol Inj) 12.5 gm IV.PUSH UNSCH PRN PRN Reason: hypotension / volume replace Miscellaneous Medication () 1 each OROPHARYNG 0000,0400,1200,1600 [facility] Last Admin: 09/27/18 11:22 Dose: Not Given Morphine Sulfate (Morphine Inj) 2 mg IV.PUSH Q2H PRN PRN Reason: PAIN SCALE 6 TO 10 Last Admin: 09/18/18 00:29 Dose: 2 mg Nitroglycerin (Nitrostat Sl) 0.4 mg SL Q5M PRN PRN Reason: CHEST PAIN Nystatin (Mycostatin Powder) 1 applicatio TOPICAL BID [facility] [place] Last Admin: 09/27/18 08:21 Dose: 1 applicatio Ondansetron HCl (Zofran Inj) 4 mg IV.PUSH Q6H PRN PRN Reason: NAUSEA OR VOMITING Last Admin: 09/26/18 00:23 Dose: 4 mg Pharmacy Profile Note (Coumadin Consult Pharmacy) 1 each OTHER UNSCH PRN PRN Reason: PHARMACY DOCUMENTATION Senna/Docusate Sodium (Nereida-Colace) 1 tab PO BID [facility] [place] Last Admin: 09/27/18 08:19 Dose: Not Given Sennosides (Senokot) 17.2 mg PO Q12H PRN PRN Reason: Moderate Constipation Sevelamer Carbonate (Renvela) 1,600 mg PO TIDAC [facility] [place] Last Admin: 09/27/18 12:04 Dose: 1,600 mg Sodium Chloride (Ns Flush) 2 ml IV.FLUSH BID [facility] Last Admin: 09/27/18 08:21 Dose: 2 ml Sodium Chloride (Ns Flush) 2 ml IV.FLUSH PRN PRN PRN Reason: FLUSH AFTER USING IV ACCESS Last Admin: 09/26/18 00:25 Dose: 2 ml Sodium Chloride (Ns Flush) 5 ml IV.FLUSH PRN PRN PRN Reason: flush each lumen during HD Warfarin Sodium (Coumadin) 7.5 mg PO DAILY@1600 [facility] Last Admin: 09/26/18 15:05 Dose: 7.5 mg Physical Exam Vital signs: Vital Signs 09/26/18 16:00 09/26/18 19:40 09/26/18 20:00 Temperature 98.2 F 98.0 F Pulse Rate 162 H 93 H 96 H Respiratory Rate 18 18 Blood Pressure 90/57 L 107/53 L Pulse Oximetry 96 95 09/26/18 20:26 09/26/18 23:23 09/27/18 00:00 Temperature 97.5 F L Pulse Rate 99 H 96 H Respiratory Rate 18 Blood Pressure 119/62 Pulse Oximetry 94 L 97 09/27/18 03:18 09/27/18 04:00 09/27/18 08:00 Temperature 98.5 F 98.0 F Pulse Rate 90 90 92 H Respiratory Rate 20 12 Blood Pressure 105/55 L 105/55 L Pulse Oximetry 96 95 09/27/18 09:46 09/27/18 12:00 Temperature 98.2 F Pulse Rate 94 H Respiratory Rate 15 Blood Pressure 115/66 Pulse Oximetry 95 96 Intake & Output 09/26/18 09/27/18 09/27/18 18:59 06:59 18:59 Intake Total 420 / 420 730 / 730 Output Total 5000 / 5000 Balance -4580 / -4580 730 / 730 Weight 153.4 kg Intake: IV 250 / 250 Heparin/D5W 25,000 U/250 mL 25, 250 / 250 000 unit In 250 ml @ Per Protocol IV.CONT TITRATE PRN Rx #:[id number] Oral 420 / 420 480 / 480 Output: Hemodialysis Amount 5000 / 5000 Other: # Voids 1 0 Date of Last Bowel Movement 09/25/18 # Bowel Movements 0 - Constitutional no acute distress - Routine HEENT Exam Head: Present: normocephalic Eye: Present: PERRL ENT: Present: mucous membranes moist - Routine Neck Exam Present: full ROM - Routine Respiratory Exam Present: CTA bilaterally - Routine Cardiovascular Exam Present: S1, S2. Absent: murmur, gallop, rubs - Routine Abdominal Exam Present: normoactive bowel sounds - Routine Extremities Exam Present: full ROM, pulses intact, normal capillary refill. Absent: cyanosis, clubbing, edema - Routine Skin Exam Present: intact - Routine Neurological Exam Present: oriented X3 - Detailed Neurological Exam: Coma Scale Eye Opening: Spontaneous Verbal Response: Oriented Motor Response: Obey commands [place] Coma Scale Total: 15 - Routine Psychiatric Exam Present: normal affect - Urinary Catheter Management Indwelling Urethral Catheter Cath placed during this visit: yes, but has since been removed by the nurse Reason for continuing: Hourly intake/output Insertion date: 09/08/18 Insertion time: 22:52 Removal date: 09/17/18 Removal time: 09:10 Results 09/27/18 05:46 09/27/18 05:46 Cardiac Enzymes 09/26/18 09/27/18 Range/Units 06:42 05:46 AST 17 24 (15-37) U/L Coagulation 09/26/18 09/27/18 09/27/18 Range/Units 06:42 05:46 12:20 PT 16.3 H 21.6 H (9.8-11.6) sec APTT 74.1 H 83.6 H 74.4 H (23.4-31.7) sec CBC 09/27/18 Range/Units 05:46 WBC 7.4 (4.0-11.0) th/mm3 RBC 4.81 (4.00-5.30) mil/mm3 Hgb 12.9 (11.6-15.3) gm/dL Hct 39.3 (35.0-46.0) % Plt Count 368 (150-450) th/mm3 Comprehensive Metabolic Panel 09/26/18 09/27/18 Range/Units 06:42 05:46 Sodium 133 L 133 L (136-145) meq/L Potassium 4.1 4.2 (3.5-5.1) meq/L Chloride 96 L 92 L (98-107) meq/L Carbon Dioxide 23.2 26.9 (21.0-32.0) meq/L BUN 46 H 42 H (7-18) mg/dL Creatinine 7.88 H 7.27 H (0.50-1.00) mg/dL Calcium 10.1 10.4 H (8.5-10.1) mg/dL AST 17 24 (15-37) U/L ALT 22 31 (10-53) U/L Alkaline Phosphatase 87 101 (45-117) U/L Total Protein 9.5 H 9.8 H (6.4-8.2) g/dL Albumin 3.7 3.9 (3.4-5.0) g/dL Intake and Output 09/26/18 09/27/18 09/27/18 22:59 06:59 14:59 Intake Total 420 / 420 730 / 730 Balance 420 / 420 730 / 730 Intake: IV 250 / 250 Heparin/D5W 25,000 U/250 mL 25, 250 / 250 000 unit In 250 ml @ Per Protocol IV.CONT TITRATE PRN Rx #:[id number] Oral 420 / 420 480 / 480 Other: # Voids 1 0 # Bowel Movements 0 Weight 153.4 kg - Imaging and Cardiology Imaging: Impressions Central Venous Line 09/23/18 00:00 CONCLUSION: 1. Uncomplicated venous catheter change as above. Chest X-Ray 09/26/18 00:00 CONCLUSION: 1. Stable cardiomegaly. 2. Minimal discoid atelectasis within the left mid lung. 3. No evidence of pulmonary vascular congestion or pneumonia. Chest X-Ray 09/27/18 00:00 CONCLUSION: Mild bilateral perihilar and basilar consolidation developing. Assessment and Plan - Assessment (1) CHF (congestive heart failure) Code(s): I50.9 - Heart failure, unspecified Status: Acute (2) Cardiomyopathy Code(s): I42.9 - Cardiomyopathy, unspecified Status: Acute (3) Acute kidney failure Code(s): N17.9 - Acute kidney failure, unspecified Status: Acute (4) Respiratory failure Code(s): J96.90 - Respiratory failure, unspecified, unspecified whether with hypoxia or hypercapnia Status: Acute (5) Obesity Code(s): E66.9 - Obesity, unspecified Status: Acute - Plan Patient's blood pressure is stable at this time; continue with current treatment plan for CHF. There have been no new cardiac issues at this time, continue the current cardiac treatment plan. Continue to increase patient's activity level as patient tolerates; PT. Continue to monitor the patient on telemetry. The patient was seen and evaluated by Dr. Law who participated in care, management and decision making. - Attending Attestation Patient seen and examined. I reviewed and agree with the evaluation and plan as presented. Continue tx for CHF. Increase activity, PT. (5) Obesity Qualifiers: Obesity classification: adult class 3 (BMI >= 40)
[2018-09-28] MEDS: Oral Hygiene Kit OROPHARYNG SCH ×4 (05:15→23:38)
[2018-09-28] MEDS: Insulin NovoLIN Regular Correctional Sugar Inj SQ SCH ×6 (05:15→23:38)
[2018-09-28] MEDS: Chlorhexidine 0.12% Oral Kit 15 ML UDC OROPHARYNG SCH ×2 (07:22→20:26)
[2018-09-28] MEDS: Famotidine PF Inj 20 MG/2 ML Vial IV.PUSH SCH (08:09)
[2018-09-28] MEDS: Senna/Docusate Sodium 8.6/50 MG Tablet PO SCH ×2 (08:10→20:26)
[2018-09-28] MEDS: Nystatin 100,000 UNITS/GM Powder 15 GM Bottle TOPICAL SCH ×2 (08:11→20:26)
--- NOTE | 2018-09-28 10:00 | P.PNNP ---
Subjective Interval history: Patient seen during HD, sleepy but arousable. Physical Exam Vital signs: Vital Signs 09/27/18 12:00 09/27/18 16:00 09/27/18 16:06 Temperature 98.2 F 97.8 F Pulse Rate 97 H 89 94 H Respiratory Rate 15 14 15 Blood Pressure 115/66 96/54 L Pulse Oximetry 96 97 09/27/18 20:00 09/27/18 20:03 09/27/18 20:56 Temperature 98.1 F Pulse Rate 91 H 88 Respiratory Rate 20 Blood Pressure 102/71 Pulse Oximetry 98 95 09/27/18 23:20 09/28/18 00:00 09/28/18 00:30 Temperature 97.9 F Pulse Rate 93 H 96 H 88 Respiratory Rate 16 18 Blood Pressure 102/61 Pulse Oximetry 95 09/28/18 04:00 Temperature 97.1 F L Pulse Rate 89 Respiratory Rate 18 Blood Pressure 113/74 Pulse Oximetry 100 Intake & Output 09/27/18 09/28/18 09/28/18 18:59 06:59 18:59 Intake Total 730 / 730 480 / 480 Balance 730 / 730 480 / 480 Intake: IV 250 / 250 Heparin/D5W 25,000 U/250 mL 25, 250 / 250 000 unit In 250 ml @ Per Protocol IV.CONT TITRATE PRN Rx #:[id number] Oral 480 / 480 480 / 480 Other: # Voids 0 # Bowel Movements 0 Narrative: GENERAL: NAD, morbidly obese. NECK: Supple, trachea midline. HEENT: unremarkable. CARDIOVASCULAR: Regular rate and rhythm. RESPIRATORY: Distant breath sounds. Occ Crackles at bases. GASTROINTESTINAL: Abdomen soft, obese ,non-tender. MUSCULOSKELETAL: Mild edema. Neuro:No gross deficits. - Urinary Catheter Management Indwelling Urethral Catheter Cath placed during this visit: yes, but has since been removed by the nurse Reason for continuing: Hourly intake/output Insertion date: 09/08/18 Insertion time: 22:52 Removal date: 09/17/18 Removal time: 09:10 Assessment and Plan - Assessment (1) Acute kidney failure Code(s): N17.9 - Acute kidney failure, unspecified Status: Acute Plan: Baseline renal function is not known. Could have developed contrast nephropathy after CTA. Has suffered ATN. Patient has become dialysis dependent. Patient has been now on HD. Monitor for renal recovery. Monitor urine output. No BMP today, but Creatinine was high yesterday. (2) Respiratory failure Code(s): J96.90 - Respiratory failure, unspecified, unspecified whether with hypoxia or hypercapnia Status: Acute Plan: resolved. (3) Obesity Code(s): E66.9 - Obesity, unspecified Status: Acute Qualifiers: Obesity classification: adult class 3 (BMI >= 40) Plan: patient has obesity-hypoventilation syndrome. (4) Pulmonary embolism Code(s): I26.99 - Other pulmonary embolism without acute cor pulmonale Status : Acute Plan: On Heparin/Coumadin.
--- NOTE | 2018-09-28 11:29 | P.PN ---
Subjective Interval history: In Dialysis and seems comfortable. Off O2 now. Used CPAP last Night. Physical Exam Vital signs: Vital Signs 09/27/18 12:00 09/27/18 16:00 09/27/18 16:06 Temperature 98.2 F 97.8 F Pulse Rate 97 H 89 94 H Respiratory Rate 15 14 15 Blood Pressure 115/66 96/54 L Pulse Oximetry 96 97 09/27/18 20:00 09/27/18 20:03 09/27/18 20:56 Temperature 98.1 F Pulse Rate 91 H 88 Respiratory Rate 20 Blood Pressure 102/71 Pulse Oximetry 98 95 09/27/18 23:20 09/28/18 00:00 09/28/18 00:30 Temperature 97.9 F Pulse Rate 93 H 96 H 88 Respiratory Rate 16 18 Blood Pressure 102/61 Pulse Oximetry 95 09/28/18 04:00 09/28/18 08:00 Temperature 97.1 F L 98.2 F Pulse Rate 89 87 Respiratory Rate 18 20 Blood Pressure 113/74 99/62 L Pulse Oximetry 100 96 Intake & Output 09/27/18 09/28/18 09/28/18 18:59 06:59 18:59 Intake Total 730 / 730 480 / 480 Balance 730 / 730 480 / 480 Intake: IV 250 / 250 Heparin/D5W 25,000 U/250 mL 25, 250 / 250 000 unit In 250 ml @ Per Protocol IV.CONT TITRATE PRN Rx #:[id number] Oral 480 / 480 480 / 480 Other: # Voids 0 # Bowel Movements 0 Narrative: GENERAL: NAD, morbidly obese. Mid aged lady NECK: Supple, trachea midline. HEENT: unremarkable. CARDIOVASCULAR: Regular rate and rhythm. RESPIRATORY: Distant breath sounds. Occ Crackles at bases. GASTROINTESTINAL: Abdomen soft, obese ,non-tender. MUSCULOSKELETAL: Mild edema. Neuro:No gross deficits.Moves all. - Urinary Catheter Management Indwelling Urethral Catheter Cath placed during this visit: yes, but has since been removed by the nurse Reason for continuing: Hourly intake/output Insertion date: 09/08/18 Insertion time: 22:52 Removal date: 09/17/18 Removal time: 09:10 Results - Labs CBC & Chem 7: 09/27/18 05:46 09/27/18 05:46 Laboratory Results - last 24 hr 12/09/27/18 09/27/18 12:04 12:20 15:50 APTT 74.4 H POC Glucose 123 H 147 H 09/27/18 09/27/18 09/28/18 19:56 21:05 05:10 APTT 68.9 H POC Glucose 124 H 93 09/28/18 08:09 APTT POC Glucose 113 H Assessment and Plan - Assessment (1) Sleep apnea treated with nocturnal BiPAP Code(s): G47.30 - Sleep apnea, unspecified Status: Acute (2) Pneumonia Code(s): J18.9 - Pneumonia, unspecified organism Status: Acute (3) Acute kidney failure Code(s): N17.9 - Acute kidney failure, unspecified Status: Acute (4) Respiratory failure Code(s): J96.90 - Respiratory failure, unspecified, unspecified whether with hypoxia or hypercapnia Status: Acute (5) Obesity Code(s): E66.9 - Obesity, unspecified Status: Acute (6) Pulmonary embolism Code(s): I26.99 - Other pulmonary embolism without acute cor pulmonale Status : Acute (7) Chronic pain Code(s): G89.29 - Other chronic pain Status: Acute (8) Dyspnea Code(s): R06.00 - Dyspnea, unspecified Status: Acute (9) Debility Code(s): R53.81 - Other malaise Status: Acute (10) CHF (congestive heart failure) Code(s): I50.9 - Heart failure, unspecified Status: Acute - Plan 1. O2 3 L N/C daytime 2. Dialysis as planned in am. 3. Duoneb nebs qid prn 4. Continue CPAP at HS daily 5. Rehab placement 6. Continue PT and OT (5) Obesity Qualifiers: Obesity classification: adult class 3 (BMI >= 40)
[2018-09-28] MEDS: Heparin 10,000 UNITS/10 ML Vial (for IV use) OTHER PRN (12:54)
[2018-09-28] MEDS: Heparin Drip 25,000 UNIT/250 ML BAG IV.CONT PRN (13:42)
--- NOTE | 2018-09-28 14:08 | P.PNIM ---
Subjective Interval history: Patient seen and evaluated this morning at baseline patient doing well otherwise and earlier in the day was off oxygen and tolerated okay. Physical Exam Vital signs: Last Vital Signs Temp 98.2 F 09/28/18 08:00 Pulse 87 09/28/18 08:00 Resp 20 09/28/18 08:00 BP 99/62 L 09/28/18 08:00 Pulse Ox 96 09/28/18 08:00 Intake & Output 09/26/18 09/27/18 09/28/18 09/29/18 06:59 06:59 06:59 06:59 Intake Total 1040 / 1040 1150 / 1150 1210 / 1210 250 / 250 Output Total 2700 / 2700 5000 / 5000 1999 / 1999 Balance -1660 / -1660 -3850 / -3850 1210 / 1210 -1750 / -1750 Weight 158.1 kg 153.4 kg General: No acute distress, conversational HEENT: EOMI, PERRLA. On 3 L nasal cannula Cardiovascular: S1/S2 Respiratory: Decreased breath sounds at the base of the lung due to body habitus but no expiratory muscle use Gastrointestinal: Soft, nontender, nondistended, no guarding or rebound appreciated. Ext: No edema Urinary Catheter Management Indwelling Urethral Catheter: Cath placed during this visit: yes, but has since been removed by the nurse Insertion date: 09/08/18 Insertion time: 22:52 Removal date: 09/17/18 Removal time: 09:10 Results Labs CBC & Chem 7: 09/27/18 05:46 09/27/18 05:46 Assessment and Plan (1) CHF (congestive heart failure): Code(s): I50.9 - Heart failure, unspecified Status: Acute (2) Cardiomyopathy: Code(s): I42.9 - Cardiomyopathy, unspecified Status: Acute (3) Acute kidney failure: Code(s): N17.9 - Acute kidney failure, unspecified Status: Acute (4) Respiratory failure: Code(s): J96.90 - Respiratory failure, unspecified, unspecified whether with hypoxia or hypercapnia Status: Acute (5) Obesity: Code(s): E66.9 - Obesity, unspecified Status: Acute Plan 47-year-old morbidly obese female was brought in emergently department by EMS due to respiratory failure and unresponsiveness with evidence of respiratory distress for which she was initially trialed on BiPAP but failed ultimately resulting in intubation and transfer to critical care. Patient has subsequently been extubated but during hospital course was found to have evidence of atrial fibrillation which is possibly paroxysmal in nature. Consultation has been appreciated by cardiology and patient is currently being transitioned over to Coumadin. Consultation also appreciated by nephrology for renal failure for which patient has been started on hemodialysis. Hospital course complicated pulmonary embolism currently on Coumadin Pulmonary: acute hypoxemic respiratory failure, suspected pneumonia (community -acquired), pulmonary embolism Supplemental oxygen 3 L nasal cannula during the daytime and CPAP at night Extubated 09/16/2018, maintaining airway, maintaining oxygen saturation CTA chest: Very limited examination due to patient body habitus. Elongated filling defect in the right pulmonary artery suspicious for PE. Moderate-sized area consolidation of right lower lobe. Bilateral dependent lower lobe atelectasis. Monitor PTT per protocol. continue Coumadin. INR therapeutic. - Continue scheduled and as needed breathing treatments. EzPAP, Acapella Chest x-ray 09/26: No evidence of pulmonary vascular congestion or edema. Cardiology: Acute systolic heart failure/Pulmonary edema Started on milrinone 09/13/2018 to maintain cardiac index more than 2.2. Discontinued 09/18/2018 Echo 09/09: Technically difficult study making assessment of left ventricular function and wall motion. Suboptimal. Grossly, left ventricular function appears severely reduced. probable global hypokinesis. Repeat limited echo , very poor windows difficult to interpret Cardiology Dr. Law following. Continue fluid removal with hemodialysis Nephrology: Acute kidney failure Patient currently on hemodialysis. Monitor renal function, I/O's, avoid nephrotoxins. Fluid removal with hemodialysis started 09/12/[address] Majano. Scheduled hemodialysis Alt days US abdomen: No masses or hydronephrosis, enlarged liver likely due to fatty infiltration. -nephro following . unclear if pt will have recovery or need HD snf Infectious disease: Probable pneumonia/Sepsis Discontinued Zyvox which patient has been taking since 09/16. Strep pneumonia and Legionella urinary Ag negative 09/09 Blood, sputum and urine cx: All negative to date Chest x-ray 09/26 without evidence of pneumonia or pulmonary vascular congestion DVT GI prophylaxis -SCDs -Heparin drip transition to Coumadin as above -Pepcid Progress Note: Quality VTE Deep Vein Thrombosis/Pulmonary Embolism Present on Admission: Yes _ (1) CHF (congestive heart failure) Qualifiers: Heart failure type: Heart failure chronicity: (2) Cardiomyopathy Qualifiers: Cardiomyopathy type: (3) Acute kidney failure Qualifiers: Acute renal failure type: (4) Respiratory failure Qualifiers: Chronicity: Respiratory failure complication: (5) Obesity Qualifiers: Obesity type: Obesity classification: adult class 3 (BMI >= 40) Serious obesity comorbidity presence: Body mass index:
[2018-09-28 14:16] LABS: Hematocrit 38.8 % (35.0-46.0); Hemoglobin 12.3 gm/dL (11.6-15.3); Mean Corpuscular HGB Conc 31.6 % (32.0-36.0); Mean Corpuscular Hemoglobin 26.1 pg (27.0-34.0); Mean Corpuscular Volume 82.8 fL (80.0-100.0); Mean Platelet Volume 8.7 fL (7.0-11.0); Platelet Count 352 th/mm3 (150-450); Red Blood Count 4.69 mil/mm3 (4.00-5.30); Red Cell Distribution Width 17.4 % (11.6-17.2); White Blood Count 6.3 th/mm3 (4.0-11.0)
[2018-09-28 14:26] LABS: INR 2.2 Ratio; Prothrombin Time 22.4 sec (9.8-11.6)
[2018-09-28 15:00] LABS: Calcium 10.3 mg/dL (8.5-10.1); Carbon Dioxide 23.5 meq/L (21.0-32.0); Magnesium 2.3 mg/dL (1.5-2.5); Potassium 4.8 meq/L (3.5-5.1)
[2018-09-29] MEDS: Oral Hygiene Kit OROPHARYNG SCH ×3 (05:23→16:30)
[2018-09-29] MEDS: Insulin NovoLIN Regular Correctional Sugar Inj SQ SCH ×5 (05:23→20:59)
[2018-09-29] MEDS: Chlorhexidine 0.12% Oral Kit 15 ML UDC OROPHARYNG SCH ×2 (07:18→20:48)
[2018-09-29] MEDS: Senna/Docusate Sodium 8.6/50 MG Tablet PO SCH ×2 (08:10→20:58)
[2018-09-29] MEDS: Nystatin 100,000 UNITS/GM Powder 15 GM Bottle TOPICAL SCH ×2 (08:11→21:00)
[2018-09-29 08:56] LABS: INR 2.5 Ratio
--- NOTE | 2018-09-29 12:44 | P.PN ---
Subjective Interval history: Follow up for resp. failure, PE, LEIDA on HD now: Pt. seen and examined. Pt. lethargic, awakes to voice, oriented x 2-3. Following commands. C/O pain to legs , states she has neuropathy, especially right foot. Endorses hx of right foot drop. On RA. No fever. No cp, no sob. Not eating much. BP running low 90s, Coreg held. Physical Exam Vital signs: Vital Signs 09/28/18 16:00 09/28/18 20:00 09/29/18 00:00 Temperature 97.7 F 98.7 F 97.9 F Pulse Rate 97 H 90 90 Respiratory Rate 20 18 18 Blood Pressure 99/77 L 89/59 L 86/60 L Pulse Oximetry 95 95 95 09/29/18 04:00 09/29/18 08:00 Temperature 97.8 F 97.8 F Pulse Rate 90 87 Respiratory Rate 18 20 Blood Pressure 98/77 L 91/51 L Pulse Oximetry 95 95 Intake & Output 09/28/18 09/29/18 09/29/18 18:59 06:59 18:59 Intake Total 740 / 740 Output Total 1999 Balance -1260 / -1260 Intake: IV 500 / 500 Heparin/D5W 25,000 U/250 mL 25, 500 / 500 000 unit In 250 ml @ Per Protocol IV.CONT TITRATE PRN Rx #:[id number] Oral 240 / 240 Output: Hemodialysis Amount 1999 Other: # Voids 2 0 # Bowel Movements 0 Narrative: General: 47 year morbidly obese female, somnolent, chronically ill appearing HEENT: EOMI, PERRLA. Cardiovascular: S1/S2, no M/R/G Respiratory: Decreased at bases, poor inspiratory effort Gastrointestinal: Soft, nontender, nondistended, no guarding or rebound appreciated. Extremities: Bilat LE no edema, pedal pulses 2+. Bilat LE weakness, Right foot weaker than left foot Neuro: awakes to voice, lethargic, oriented to place, year. Follows commands. Speech clear. - Urinary Catheter Management Indwelling Urethral Catheter Cath placed during this visit: yes, but has since been removed by the nurse Reason for continuing: Hourly intake/output Insertion date: 09/08/18 Insertion time: 22:52 Removal date: 09/17/18 Removal time: 09:10 Results - Labs CBC & Chem 7: 09/28/18 08:47 09/28/18 08:54 Laboratory Results - last 24 hr 09/28/18 09/28/18 09/28/18 08:47 08:47 08:47 WBC 6.3 RBC 4.69 Hgb 12.3 Hct 38.8 MCV 82.8 MCH 26.1 L MCHC 31.6 L RDW 17.4 H Plt Count 352 MPV 8.7 PT 22.4 H INR 2.2 APTT 83.9 H D Sodium Potassium Chloride Carbon Dioxide Anion Gap BUN Creatinine Estimated GFR POC Glucose Random Glucose Calcium Magnesium 09/28/18 09/28/18 09/28/18 08:54 17:21 19:52 WBC RBC Hgb Hct MCV MCH MCHC RDW Plt Count MPV PT INR APTT Sodium 136 Potassium 4.8 Chloride 93 L Carbon Dioxide 23.5 Anion Gap 20 H BUN 63 H Creatinine 9.18 H Estimated GFR 5 L POC Glucose 121 H 107 Random Glucose 85 Calcium 10.3 H Magnesium 2.3 09/28/18 09/29/18 09/29/18 23:34 05:21 08:08 WBC RBC Hgb Hct MCV MCH MCHC RDW Plt Count MPV PT INR APTT Sodium Potassium Chloride Carbon Dioxide Anion Gap BUN Creatinine Estimated GFR POC Glucose 135 H 108 101 Random Glucose Calcium Magnesium 09/29/18 08:16 WBC RBC Hgb Hct MCV MCH MCHC RDW Plt Count MPV PT 25.0 H INR 2.5 APTT Sodium Potassium Chloride Carbon Dioxide Anion Gap BUN Creatinine Estimated GFR POC Glucose Random Glucose Calcium Magnesium Assessment and Plan - Assessment (1) CHF (congestive heart failure) Code(s): I50.9 - Heart failure, unspecified Status: Acute (2) Cardiomyopathy Code(s): I42.9 - Cardiomyopathy, unspecified Status: Acute (3) Acute kidney failure Code(s): N17.9 - Acute kidney failure, unspecified Status: Acute (4) Respiratory failure Code(s): J96.90 - Respiratory failure, unspecified, unspecified whether with hypoxia or hypercapnia Status: Acute (5) Obesity Code(s): E66.9 - Obesity, unspecified Status: Acute - Plan 47-year-old morbidly obese female was brought in emergently department by EMS due to respiratory failure and unresponsiveness with evidence of respiratory distress for which she was initially trialed on BiPAP but failed ultimately resulting in intubation and transfer to critical care. Patient has subsequently been extubated but during hospital course was found to have evidence of atrial fibrillation which is possibly paroxysmal in nature. Consultation has been appreciated by cardiology and patient is currently being transitioned over to Coumadin. Consultation also appreciated by nephrology for renal failure for which patient has been started on hemodialysis. Hospital course complicated pulmonary embolism currently on Coumadin Pulmonary: acute hypoxemic respiratory failure, suspected pneumonia (community -acquired), pulmonary embolism Supplemental oxygen 3 L nasal cannula during the daytime and CPAP at night Extubated 09/16/2018, maintaining airway, maintaining oxygen saturation CTA chest: Very limited examination due to patient body habitus. Elongated filling defect in the right pulmonary artery suspicious for PE. Moderate-sized area consolidation of right lower lobe. Bilateral dependent lower lobe atelectasis. continue Coumadin. INR therapeutic. Pharmacy assisting - Continue scheduled and as needed breathing treatments. EzPAP, Acapella Chest x-ray 09/26: No evidence of pulmonary vascular congestion or edema. Acute systolic heart failure/Pulmonary edema Started on milrinone 09/13/2018 to maintain cardiac index more than 2.2. Discontinued 09/18/2018 Echo 09/09: Technically difficult study making assessment of left ventricular function and wall motion. Suboptimal. Grossly, left ventricular function appears severely reduced. probable global hypokinesis. Repeat limited echo , very poor windows difficult to interpret Cardiology Dr. Law following. Continue fluid removal with hemodialysis -Coreg held today due to BP 98. Acute kidney failure, poss contrast induced. Patient currently on hemodialysis. Monitor renal function, I/O's, avoid nephrotoxins. Fluid removal with hemodialysis started 09/12/[address] Majano. Scheduled hemodialysis Alt days US abdomen: No masses or hydronephrosis, enlarged liver likely due to fatty infiltration. -nephro following . unclear if pt will have recovery or need HD [facility] -had HD yesterday, creat on 09/28 9.1 -BMP in am Probable pneumonia/Sepsis Discontinued Zyvox which patient has been taking since 09/16. Strep pneumonia and Legionella urinary Ag negative 09/09 Blood, sputum and urine cx: All negative to date Chest x-ray 09/26 without evidence of pneumonia or pulmonary vascular congestion Hx of HTN -On Coreg, held today due to low BP DM II BGMs well controlled -change Accuchecks to AC/HS with ISS Hypothyroid -will resume Synthroid -TSH in am Peripheral neuropathy, c/o inc. pain to feet especially right foot -Resume Lyrica 75 mg PO BID DVT GI prophylaxis -SCDs/Coumadin -Pepcid BMP in am Continue with PT, inc. mobility as tolerated. Code Status: Full code Palliative care following Discussed Condition With: RN, pt Discharge Planning: On HD, no decision whether she will need HD as OP. Will SNF (5) Obesity Qualifiers: Obesity classification: adult class 3 (BMI >= 40)
--- NOTE | 2018-09-29 15:04 | P.PN ---
Subjective Interval history: No new pulmonary problems. Off o2 sat 96. Used CPAP at HS. Physical Exam Vital signs: Vital Signs 09/28/18 16:00 09/28/18 20:00 09/29/18 00:00 Temperature 97.7 F 98.7 F 97.9 F Pulse Rate 97 H 90 90 Respiratory Rate 20 18 18 Blood Pressure 99/77 L 89/59 L 86/60 L Pulse Oximetry 95 95 95 09/29/18 04:00 09/29/18 08:00 09/29/18 12:00 Temperature 97.8 F 97.8 F 97.6 F Pulse Rate 90 87 95 H Respiratory Rate 18 20 20 Blood Pressure 98/77 L 91/51 L 148/96 H Pulse Oximetry 95 95 95 Intake & Output 09/28/18 09/29/18 09/29/18 18:59 06:59 18:59 Intake Total 740 / 740 Output Total 1999 Balance -1260 / -1260 Intake: IV 500 / 500 Heparin/D5W 25,000 U/250 mL 25, 500 / 500 000 unit In 250 ml @ Per Protocol IV.CONT TITRATE PRN Rx #:[id number] Oral 240 / 240 Output: Hemodialysis Amount 1999 Other: # Voids 2 0 # Bowel Movements 0 Narrative: GENERAL: NAD, morbidly obese. Mid aged lady NECK: Supple, trachea midline. HEENT: unremarkable. CARDIOVASCULAR: Regular rate and rhythm. RESPIRATORY: Distant breath sounds. Occ Crackles at bases and mild wheezes. GASTROINTESTINAL: Abdomen soft, obese ,non-tender. MUSCULOSKELETAL: Mild edema. Neuro:No gross deficits.Moves all. - Urinary Catheter Management Indwelling Urethral Catheter Cath placed during this visit: yes, but has since been removed by the nurse Reason for continuing: Hourly intake/output Insertion date: 09/08/18 Insertion time: 22:52 Removal date: 09/17/18 Removal time: 09:10 Results - Labs CBC & Chem 7: 09/28/18 08:47 09/28/18 08:54 Laboratory Results - last 24 hr 09/28/18 09/28/18 09/28/18 17:21 19:52 23:34 PT INR POC Glucose 121 H 107 135 H 09/29/18 09/29/18 09/29/18 05:21 08:08 08:16 PT 25.0 H INR 2.5 POC Glucose 108 101 09/29/18 12:51 PT INR POC Glucose 135 H Assessment and Plan - Assessment (1) Sleep apnea treated with nocturnal BiPAP Code(s): G47.30 - Sleep apnea, unspecified Status: Acute (2) Pneumonia Code(s): J18.9 - Pneumonia, unspecified organism Status: Acute (3) Acute kidney failure Code(s): N17.9 - Acute kidney failure, unspecified Status: Acute (4) Respiratory failure Code(s): J96.90 - Respiratory failure, unspecified, unspecified whether with hypoxia or hypercapnia Status: Acute (5) Obesity Code(s): E66.9 - Obesity, unspecified Status: Acute (6) Pulmonary embolism Code(s): I26.99 - Other pulmonary embolism without acute cor pulmonale Status : Acute (7) Chronic pain Code(s): G89.29 - Other chronic pain Status: Acute (8) Dyspnea Code(s): R06.00 - Dyspnea, unspecified Status: Acute (9) Debility Code(s): R53.81 - Other malaise Status: Acute (10) CHF (congestive heart failure) Code(s): I50.9 - Heart failure, unspecified Status: Acute - Plan 1. O2 2 L N/C daytime PRN 2. Dialysis as planned in am. 3. Duoneb nebs qid prn 4. Continue CPAP at HS daily 5. Rehab placement 6. Continue PT and OT 7. CBC,BMP in am. (5) Obesity Qualifiers: Obesity classification: adult class 3 (BMI >= 40)
[2018-09-29] MEDS: Pregabalin 25 MG Capsule PO SCH (20:57)
--- NOTE | 2018-09-29 22:14 | P.PNNP ---
Subjective Interval history: Patient seen in the afternoon, alert, not in distress. Physical Exam Vital signs: Vital Signs 09/29/18 00:00 09/29/18 04:00 09/29/18 08:00 Temperature 97.9 F 97.8 F 97.8 F Pulse Rate 90 90 87 Respiratory Rate 18 18 20 Blood Pressure 86/60 L 98/77 L 91/51 L Pulse Oximetry 95 95 95 09/29/18 12:00 09/29/18 16:00 09/29/18 20:00 Temperature 97.6 F 97.8 F 97.5 F L Pulse Rate 88 87 87 Respiratory Rate 20 20 18 Blood Pressure 148/96 H 164/77 H 106/59 L Pulse Oximetry 95 96 95 Intake & Output 09/29/18 09/29/18 09/30/18 06:59 18:59 06:59 Intake Total 480 / 480 Balance 480 / 480 Intake: Oral 480 / 480 Other: # Voids 0 0 Date of Last Bowel Movement 09/29/18 # Bowel Movements 0 Narrative: General: 47 year morbidly obese female, somnolent, chronically ill appearing HEENT: EOMI, PERRLA. Cardiovascular: S1/S2, no M/R/G Respiratory: Decreased at bases, poor inspiratory effort Gastrointestinal: Soft, nontender, nondistended, no guarding or rebound appreciated. Extremities: Bilat LE no edema, pedal pulses 2+. Bilat LE weakness, Right foot weaker than left foot Neuro: awakes to voice, lethargic, oriented to place, year. Follows commands. Speech clear. - Urinary Catheter Management Indwelling Urethral Catheter Cath placed during this visit: yes, but has since been removed by the nurse Reason for continuing: Hourly intake/output Insertion date: 09/08/18 Insertion time: 22:52 Removal date: 09/17/18 Removal time: 09:10 Assessment and Plan - Assessment (1) Acute kidney failure Code(s): N17.9 - Acute kidney failure, unspecified Status: Acute Plan: Baseline renal function is not known. Could have developed contrast nephropathy after CTA. Has suffered ATN. Patient has become dialysis dependent. Patient has HD done yesterday Monitor for renal recovery. Monitor urine output. HD as needed. (2) Respiratory failure Code(s): J96.90 - Respiratory failure, unspecified, unspecified whether with hypoxia or hypercapnia Status: Acute Plan: resolved. (3) Obesity Code(s): E66.9 - Obesity, unspecified Status: Acute Qualifiers: Obesity classification: adult class 3 (BMI >= 40) Plan: patient has obesity-hypoventilation syndrome. (4) Pulmonary embolism Code(s): I26.99 - Other pulmonary embolism without acute cor pulmonale Status : Acute Plan: On Heparin/Coumadin.
[2018-09-30] MEDS: Oral Hygiene Kit OROPHARYNG SCH ×4 (00:29→17:04)
[2018-09-30] MEDS: Levothyroxine 50 MCG Tablet PO SCH (05:52)
--- NOTE | 2018-09-30 06:34 | XR ---
EXAM DATE: 09/30/2018 6:07 AM EST AGE/SEX: 47 years / Female INDICATIONS: Short of breath, coughing, evaluate infiltrate. CLINICAL DATA: This is the patient's subsequent encounter. Patient reports that signs and symptoms h ave been present for 3 weeks and indicates a pain score of 0/10. MEDICAL/SURGICAL HISTORY: Congestive heart failure. atrial flutter, renal failure . dialysis COMPARISON: [facility] – [place], CHEST 1V SINGLE AP, 09/27/2018. . FINDINGS: The right internal jugular central line is well placed. The cardiac silhouette is borderline enlarged . The lungs are grossly clear. CONCLUSION: Borderline cardiomegaly. Electronically signed by: Dillan Kelley MD Board Certified Radiologist 09/30/2018 6:33 AM EST
[2018-09-30 08:37] LABS: INR 2.6 Ratio; Prothrombin Time 26.6 sec (9.8-11.6)
[2018-09-30] MEDS: Insulin NovoLIN Regular Correctional Sugar Inj SQ SCH ×4 (08:38→21:41)
[2018-09-30] MEDS: Chlorhexidine 0.12% Oral Kit 15 ML UDC OROPHARYNG SCH ×2 (08:43→21:40)
[2018-09-30] MEDS: Pregabalin 25 MG Capsule PO SCH ×2 (08:47→21:40)
[2018-09-30] MEDS: Senna/Docusate Sodium 8.6/50 MG Tablet PO SCH ×2 (08:47→21:39)
[2018-09-30] MEDS: Nystatin 100,000 UNITS/GM Powder 15 GM Bottle TOPICAL SCH ×2 (08:47→21:41)
[2018-09-30 08:59] LABS: Calcium 9.8 mg/dL (8.5-10.1); Potassium 4.8 meq/L (3.5-5.1)
--- NOTE | 2018-09-30 09:03 | P.PNNP ---
Subjective Interval history: Ms. Hadley reports that she is making more urine than before, however it is not documented. Discussed with RN to document and chart urine output. To have dialysis today. Physical Exam Vital signs: Vital Signs 09/29/18 12:00 09/29/18 16:00 09/29/18 20:00 Temperature 97.6 F 97.8 F 97.5 F L Pulse Rate 88 87 87 Respiratory Rate 20 20 18 Blood Pressure 148/96 H 164/77 H 106/59 L Pulse Oximetry 95 96 95 09/30/18 00:00 09/30/18 04:00 Temperature 97.8 F 97.8 F Pulse Rate 96 H 85 Respiratory Rate 18 16 Blood Pressure 92/68 L 102/57 L Pulse Oximetry 94 L 95 Intake & Output 09/29/18 09/30/18 09/30/18 18:59 06:59 18:59 Intake Total 480 / 480 1800 / 1800 Balance 480 / 480 1800 / 1800 Intake: Oral 480 / 480 1800 / 1800 Other: # Voids 0 Date of Last Bowel Movement 09/29/18 # Bowel Movements 0 Narrative: General: 47 year morbidly obese female, somnolent, chronically ill appearing HEENT: EOMI, PERRLA. Cardiovascular: S1/S2, no M/R/G Respiratory: Decreased at bases, poor inspiratory effort Gastrointestinal: Soft, nontender, nondistended, no guarding or rebound appreciated. Extremities: Trace edema. Neuro: somnolent, wakes up however, able to converse with me. - Urinary Catheter Management Indwelling Urethral Catheter Cath placed during this visit: yes, but has since been removed by the nurse Reason for continuing: Hourly intake/output Insertion date: 09/08/18 Insertion time: 22:52 Removal date: 09/17/18 Removal time: 09:10 Assessment and Plan - Assessment (1) Acute kidney failure Code(s): N17.9 - Acute kidney failure, unspecified Status: Acute Plan: Could have developed contrast nephropathy after CTA. Has suffered ATN. Patient has become dialysis dependent. To have HD today. Monitor for renal recovery. Monitor urine output. HD as needed. (2) Respiratory failure Code(s): J96.90 - Respiratory failure, unspecified, unspecified whether with hypoxia or hypercapnia Status: Acute Plan: resolved. (3) Obesity Code(s): E66.9 - Obesity, unspecified Status: Acute Qualifiers: Obesity classification: adult class 3 (BMI >= 40) Plan: patient has obesity-hypoventilation syndrome. (4) Pulmonary embolism Code(s): I26.99 - Other pulmonary embolism without acute cor pulmonale Status : Acute Plan: On Coumadin.
[2018-09-30 09:10] LABS: Thyroid Stimulating Hormone 1.7 uIU/mL (0.358-3.740)
--- NOTE | 2018-09-30 10:44 | P.PN ---
Subjective Interval history: Patient seen and examined this morning, their vitals are stable and the patient is afebrile. Back from dialysis. States she itches at night. Has some abdominal fullness. Wants to be able to walk to the bathroom on her own. Physical Exam Vital signs: Vital Signs 09/29/18 12:00 09/29/18 16:00 09/29/18 20:00 Temperature 97.6 F 97.8 F 97.5 F L Pulse Rate 88 87 87 Respiratory Rate 20 20 18 Blood Pressure 148/96 H 164/77 H 106/59 L Pulse Oximetry 95 96 95 09/30/18 00:00 09/30/18 04:00 09/30/18 08:00 Temperature 97.8 F 97.8 F 97.5 F L Pulse Rate 96 H 85 84 Respiratory Rate 18 16 16 Blood Pressure 92/68 L 102/57 L 120/66 Pulse Oximetry 94 L 95 92 L Intake & Output 09/29/18 09/30/18 09/30/18 18:59 06:59 18:59 Intake Total 480 / 480 1800 / 1800 Balance 480 / 480 1800 / 1800 Intake: Oral 480 / 480 1800 / 1800 Other: # Voids 0 Date of Last Bowel Movement 09/29/18 # Bowel Movements 0 Narrative: GENERAL: Well-appearing, no acute distress, sitting comfortably SKIN: Warm and dry. HEAD: Normocephalic. EYES: No scleral icterus. No injection or drainage. NECK: Supple, trachea midline. No JVD or lymphadenopathy. CARDIOVASCULAR: Regular rate and rhythm without murmurs, gallops, or rubs. RESPIRATORY: Breath sounds equal bilaterally. No accessory muscle use. GASTROINTESTINAL: Abdomen soft, non-tender, nondistended. MUSCULOSKELETAL: No cyanosis, or edema. - Urinary Catheter Management Indwelling Urethral Catheter Cath placed during this visit: yes, but has since been removed by the nurse Reason for continuing: Hourly intake/output Insertion date: 09/08/18 Insertion time: 22:52 Removal date: 09/17/18 Removal time: 09:10 Results - Labs CBC & Chem 7: 09/30/18 11:48 09/30/18 08:05 Laboratory Results - last 24 hr 09/29/18 09/29/18 09/29/18 12:51 17:03 19:57 PT INR Sodium Potassium Chloride Carbon Dioxide Anion Gap BUN Creatinine Estimated GFR POC Glucose 135 H 102 102 Random Glucose Calcium Ammonia TSH 09/30/18 09/30/18 09/30/18 08:00 08:05 08:05 PT 26.6 H INR 2.6 Sodium 132 L Potassium 4.8 Chloride 93 L Carbon Dioxide 23.0 Anion Gap 16 H BUN 71 H Creatinine 9.16 H Estimated GFR 5 L POC Glucose 115 H Random Glucose 104 Calcium 9.8 Ammonia TSH 1.700 09/30/18 08:05 PT INR Sodium Potassium Chloride Carbon Dioxide Anion Gap BUN Creatinine Estimated GFR POC Glucose Random Glucose Calcium Ammonia 24 TSH - Imaging Impressions Chest X-Ray 09/30/18 00:00 CONCLUSION: Borderline cardiomegaly. Assessment and Plan - Assessment (1) CHF (congestive heart failure) Code(s): I50.9 - Heart failure, unspecified Status: Acute (2) Cardiomyopathy Code(s): I42.9 - Cardiomyopathy, unspecified Status: Acute (3) Acute kidney failure Code(s): N17.9 - Acute kidney failure, unspecified Status: Acute (4) Respiratory failure Code(s): J96.90 - Respiratory failure, unspecified, unspecified whether with hypoxia or hypercapnia Status: Acute (5) Obesity Code(s): E66.9 - Obesity, unspecified Status: Acute - Plan 47-year-old female with a medical history significant for PE, respiratory failure, [place] I on hemodialysis. Patient was initially brought by EMS due to respiratory failure and unresponsiveness. She underwent a trial of BiPAP but failed and was ultimately intubated and transferred to critical care. She was subsequently extubated during her hospital course, was found to have paroxysmal atrial fibrillation. Cardiology saw and evaluated the patient and was transitioned to Coumadin. Patient with renal failure and was started on hemodialysis by nephrology. Hospital course also comp located by PE. Respiratory failure Pulmonary embolism identified on CTA -Status post extubation on 121 -Pulmonology is following: CPAP at night -INR is therapeutic on Coumadin, pharmacy is dosing Community-acquired pneumonia, sepsis criteria on admission Patient status post course of Zyvox -Blood culture, urine cultures, sputum culture negative to date Systolic heart failure -Status post milrinone on 09/13-09/18 to maintain cardiac index -Echo 09/09 was suboptimal due to patient habitus, left ventricular function appears severely reduced, global hypokinesis. -Cardiology following Acute kidney failure, possibly due to contrast from CTA -HD initiated on 09/12 -Unclear at this time if hemodialysis will be short-term or long-term, - dialysis today Hypertension -Was on Coreg, patient with intermittent low blood pressures and Coreg has been held Diabetes type 2 -Accu-Cheks, sliding scale Hypothyroidism Synthroid Peripheral neuropathy -Due to patient's Lyrica 75 mg twice daily UDS: +cocaine DVT prophylaxis, currently therapeutic on Coumadin Palliative care is following Discharge Planning: Discharged to SNF when patient is stable, UDS +cocaine and unclear if patient will need dialysis retirement, these are barriers to placement. (5) Obesity Qualifiers: Obesity classification: adult class 3 (BMI >= 40)
[2018-09-30 11:53] LABS: Baso # (Auto) 0.1 th/mm3 (0.0-0.2); Baso % (Auto) 1.4 % (0.0-2.0); Eos # (Auto) 0.7 th/mm3 (0.0-0.4); Eos % (Auto) 12.3 % (0.0-4.0); Hemoglobin 13.2 gm/dL (11.6-15.3); Lymph # (Auto) 2.4 th/mm3 (1.0-4.8); Lymph % (Auto) 45.4 % (9.0-44.0); Mean Corpuscular HGB Conc 34.7 % (32.0-36.0); Mean Corpuscular Hemoglobin 27.6 pg (27.0-34.0); Mean Corpuscular Volume 79.8 fL (80.0-100.0); Mean Platelet Volume 7.8 fL (7.0-11.0); Mono # (Auto) 0.6 th/mm3 (0.0-0.9); Mono % (Auto) 10.3 % (0.0-8.0); Neut # (Auto) 1.7 th/mm3 (1.8-7.7); Neut % (Auto) 30.6 % (16.0-70.0); Platelet Count 342 th/mm3 (150-450); Red Blood Count 4.77 mil/mm3 (4.00-5.30); Red Cell Distribution Width 17.2 % (11.6-17.2); White Blood Count 5.4 th/mm3 (4.0-11.0)
--- NOTE | 2018-09-30 18:49 | P.PN ---
Subjective Interval history: No new complaints. On CPAP at HS. Off O2 . was dialyzed Physical Exam Vital signs: Vital Signs 09/29/18 20:00 09/30/18 00:00 09/30/18 04:00 Temperature 97.5 F L 97.8 F 97.8 F Pulse Rate 87 96 H 85 Respiratory Rate 18 18 16 Blood Pressure 106/59 L 92/68 L 102/57 L Pulse Oximetry 95 94 L 95 09/30/18 08:00 09/30/18 12:00 09/30/18 16:00 Temperature 97.5 F L 97.3 F L Pulse Rate 84 80 91 H Respiratory Rate 16 18 Blood Pressure 120/66 109/80 Pulse Oximetry 92 L 93 L 09/30/18 16:46 Temperature Pulse Rate 90 Respiratory Rate 20 Blood Pressure Pulse Oximetry Intake & Output 09/29/18 09/30/18 09/30/18 18:59 06:59 18:59 Intake Total 480 / 480 1800 / 1800 Output Total 3000 / 3000 Balance 480 / 480 1800 / 1800 -3000 / -3000 Intake: Oral 480 / 480 1800 / 1800 Output: Hemodialysis Amount 3000 / 3000 Other: # Voids 0 Date of Last Bowel Movement 09/29/18 # Bowel Movements 0 Narrative: GENERAL: Well-appearing, Obese lady in no acute distress SKIN: Warm and dry. HEAD: Normocephalic. EYES: No scleral icterus. No injection or drainage. NECK: Supple, trachea midline. No JVD or lymphadenopathy. CARDIOVASCULAR: Regular rate and rhythm without murmurs, gallops, or rubs. RESPIRATORY: Breath sounds equal bilaterally. Occ Wheeze.No accessory muscle use. GASTROINTESTINAL: Abdomen soft, non-tender, nondistended. MUSCULOSKELETAL: No cyanosis, or edema. - Urinary Catheter Management Indwelling Urethral Catheter Cath placed during this visit: yes, but has since been removed by the nurse Reason for continuing: Hourly intake/output Insertion date: 09/08/18 Insertion time: 22:52 Removal date: 09/17/18 Removal time: 09:10 Results - Labs CBC & Chem 7: 09/30/18 11:48 09/30/18 08:05 Laboratory Results - last 24 hr 09/29/18 09/30/18 09/30/18 19:57 08:00 08:05 WBC RBC Hgb Hct MCV MCH MCHC RDW Plt Count MPV Neut % (Auto) Lymph % (Auto) [place] % (Auto) Eos % (Auto) Baso % (Auto) Neut # (Auto) Lymph # (Auto) [place] # (Auto) Eos # (Auto) Baso # (Auto) WBC Differential Differential Comment PT 26.6 H INR 2.6 Sodium Potassium Chloride Carbon Dioxide Anion Gap BUN Creatinine Estimated GFR POC Glucose 102 115 H Random Glucose Calcium Ammonia TSH 09/30/18 09/30/18 09/30/18 08:05 08:05 11:48 WBC 5.4 RBC 4.77 Hgb 13.2 Hct 38.0 MCV 79.8 L MCH 27.6 MCHC 34.7 RDW 17.2 Plt Count 342 MPV 7.8 Neut % (Auto) 30.6 Lymph % (Auto) 45.4 H [place] % (Auto) 10.3 H Eos % (Auto) 12.3 H Baso % (Auto) 1.4 Neut # (Auto) 1.7 L Lymph # (Auto) 2.4 [place] # (Auto) 0.6 Eos # (Auto) 0.7 H Baso # (Auto) 0.1 WBC Differential . Differential Comment Auto diff final PT INR Sodium 132 L Potassium 4.8 Chloride 93 L Carbon Dioxide 23.0 Anion Gap 16 H BUN 71 H Creatinine 9.16 H Estimated GFR 5 L POC Glucose Random Glucose 104 Calcium 9.8 Ammonia 24 TSH 1.700 09/30/18 09/30/18 12:00 17:08 WBC RBC Hgb Hct MCV MCH MCHC RDW Plt Count MPV Neut % (Auto) Lymph % (Auto) [place] % (Auto) Eos % (Auto) Baso % (Auto) Neut # (Auto) Lymph # (Auto) [place] # (Auto) Eos # (Auto) Baso # (Auto) WBC Differential Differential Comment PT INR Sodium Potassium Chloride Carbon Dioxide Anion Gap BUN Creatinine Estimated GFR POC Glucose 104 132 H Random Glucose Calcium Ammonia TSH - Imaging Impressions Chest X-Ray 09/30/18 00:00 CONCLUSION: Borderline cardiomegaly. Assessment and Plan - Assessment (1) Sleep apnea treated with nocturnal BiPAP Code(s): G47.30 - Sleep apnea, unspecified Status: Acute (2) Pneumonia Code(s): J18.9 - Pneumonia, unspecified organism Status: Acute (3) Acute kidney failure Code(s): N17.9 - Acute kidney failure, unspecified Status: Acute (4) Respiratory failure Code(s): J96.90 - Respiratory failure, unspecified, unspecified whether with hypoxia or hypercapnia Status: Acute (5) Obesity Code(s): E66.9 - Obesity, unspecified Status: Acute (6) Pulmonary embolism Code(s): I26.99 - Other pulmonary embolism without acute cor pulmonale Status : Acute (7) Chronic pain Code(s): G89.29 - Other chronic pain Status: Acute (8) Dyspnea Code(s): R06.00 - Dyspnea, unspecified Status: Acute (9) Debility Code(s): R53.81 - Other malaise Status: Acute (10) CHF (congestive heart failure) Code(s): I50.9 - Heart failure, unspecified Status: Acute - Plan 1. O2 2 L N/C daytime PRN 2. Dialysis as planned 3. Duoneb nebs qid prn 4. Continue CPAP at HS daily 5. Rehab placement 6. Continue PT and OT 7. Continue anticoagulants and watch INR (5) Obesity Qualifiers: Obesity classification: adult class 3 (BMI >= 40)
[2018-10-01] MEDS: Oral Hygiene Kit OROPHARYNG SCH ×4 (02:35→16:12)
[2018-10-01] MEDS: Levothyroxine 50 MCG Tablet PO SCH (06:28)
[2018-10-01] MEDS: Insulin NovoLIN Regular Correctional Sugar Inj SQ SCH ×4 (09:08→20:46)
[2018-10-01] MEDS: Chlorhexidine 0.12% Oral Kit 15 ML UDC OROPHARYNG SCH ×2 (09:09→20:45)
[2018-10-01] MEDS: Pregabalin 25 MG Capsule PO SCH ×2 (09:12→20:45)
[2018-10-01] MEDS: Senna/Docusate Sodium 8.6/50 MG Tablet PO SCH ×2 (09:13→20:46)
[2018-10-01] MEDS: Nystatin 100,000 UNITS/GM Powder 15 GM Bottle TOPICAL SCH ×2 (09:18→20:46)
--- NOTE | 2018-10-01 09:59 | P.PN ---
Subjective Interval history: Patient seen and examined this morning, their vitals are stable and the patient is afebrile. Some low blood pressures this morning. Patient with a little slurring of speech. She denies shortness of breath. States she uses oxygen at home as needed and her tincture MD, wondering if they can be filled before she is discharged. Requesting a wheelchair for her room, would like to use this for ambulation instead of people. Physical Exam Vital signs: Vital Signs 09/30/18 12:00 09/30/18 16:00 09/30/18 16:46 Temperature 97.3 F L Pulse Rate 80 95 H 90 Respiratory Rate 16 16 20 Blood Pressure 109/80 Pulse Oximetry 93 L 09/30/18 20:00 09/30/18 21:04 10/01/18 00:00 Temperature 97.7 F 98.5 F Pulse Rate 99 H 93 H 93 H Respiratory Rate 20 20 20 Blood Pressure 92/56 L 92/73 L Pulse Oximetry 94 L 97 97 10/01/18 02:41 10/01/18 04:00 10/01/18 08:00 Temperature 98.1 F 97.7 F Pulse Rate 92 H 89 84 Respiratory Rate 15 20 20 Blood Pressure 101/62 93/58 L Pulse Oximetry 97 94 L Intake & Output 09/30/18 10/01/18 10/01/18 18:59 06:59 18:59 Intake Total 300 / 300 Output Total 3000 / 3000 0 / 0 Balance -3000 / -3000 300 / 300 Weight 154.1 kg Intake: Oral 300 / 300 Output: Urine 0 / 0 Hemodialysis Amount 3000 / 3000 Narrative: GENERAL: Well-appearing, no acute distress, sitting comfortably SKIN: Warm and dry. HEAD: Normocephalic. EYES: No scleral icterus. No injection or drainage. NECK: Supple, trachea midline. No JVD or lymphadenopathy. CARDIOVASCULAR: Heart sounds distant, Regular rate and rhythm without murmurs, gallops, or rubs. RESPIRATORY: Breath sounds equal bilaterally. No accessory muscle use. GASTROINTESTINAL: Abdomen soft, non-tender, nondistended. MUSCULOSKELETAL: No cyanosis, or edema. - Urinary Catheter Management Indwelling Urethral Catheter Cath placed during this visit: yes, but has since been removed by the nurse Reason for continuing: Hourly intake/output Insertion date: 09/08/18 Insertion time: 22:52 Removal date: 09/17/18 Removal time: 09:10 Results - Labs CBC & Chem 7: 09/30/18 11:48 09/30/18 08:05 Laboratory Results - last 24 hr 09/30/18 09/30/18 09/30/18 11:48 12:00 17:08 WBC 5.4 RBC 4.77 Hgb 13.2 Hct 38.0 MCV 79.8 L MCH 27.6 MCHC 34.7 RDW 17.2 Plt Count 342 MPV 7.8 Neut % (Auto) 30.6 Lymph % (Auto) 45.4 H [place] % (Auto) 10.3 H Eos % (Auto) 12.3 H Baso % (Auto) 1.4 Neut # (Auto) 1.7 L Lymph # (Auto) 2.4 [place] # (Auto) 0.6 Eos # (Auto) 0.7 H Baso # (Auto) 0.1 WBC Differential . Differential Comment Auto diff final POC Glucose 104 132 H 09/30/18 10/01/18 20:27 09:08 WBC RBC Hgb Hct MCV MCH MCHC RDW Plt Count MPV Neut % (Auto) Lymph % (Auto) [place] % (Auto) Eos % (Auto) Baso % (Auto) Neut # (Auto) Lymph # (Auto) [place] # (Auto) Eos # (Auto) Baso # (Auto) WBC Differential Differential Comment POC Glucose 123 H 134 H Assessment and Plan - Assessment (1) CHF (congestive heart failure) Code(s): I50.9 - Heart failure, unspecified Status: Acute (2) Cardiomyopathy Code(s): I42.9 - Cardiomyopathy, unspecified Status: Acute (3) Acute kidney failure Code(s): N17.9 - Acute kidney failure, unspecified Status: Acute (4) Respiratory failure Code(s): J96.90 - Respiratory failure, unspecified, unspecified whether with hypoxia or hypercapnia Status: Acute (5) Obesity Code(s): E66.9 - Obesity, unspecified Status: Acute - Plan 47-year-old female with a medical history significant for PE, respiratory failure, [place] I on hemodialysis. Patient was initially brought by EMS due to respiratory failure and unresponsiveness. She underwent a trial of BiPAP but failed and was ultimately intubated and transferred to critical care. She was subsequently extubated during her hospital course, was found to have paroxysmal atrial fibrillation. Cardiology saw and evaluated the patient and was transitioned to Coumadin. Patient with renal failure and was started on hemodialysis by nephrology. Hospital course also complicated by PE. Respiratory failure Pulmonary embolism identified on CTA -Status post extubation on 09/16 -Pulmonology is following: CPAP at night -INR is therapeutic on Coumadin, pharmacy is dosing Community-acquired pneumonia, sepsis criteria on admission Patient status post course of Zyvox -Blood culture, urine cultures, sputum culture negative to date Systolic heart failure -Status post milrinone on 09/13-09/18 to maintain cardiac index -Echo 09/09 was suboptimal due to patient habitus, left ventricular function appears severely reduced, global hypokinesis. -Cardiology following Acute kidney failure, possibly due to contrast from CTA -HD initiated on 09/12 -Unclear at this time if hemodialysis will be short-term or long-term, - dialysis yesterday Hypertension -Was on Coreg, patient with intermittent low blood pressures and Coreg has been held Diabetes type 2 -Accu-Cheks, sliding scale Hypothyroidism Synthroid Peripheral neuropathy -Due to patient's Lyrica 75 mg twice daily UDS: +cocaine DVT prophylaxis, currently therapeutic on Coumadin Palliative care is following Discharge Planning: Discharged to SNF when patient is stable, UDS +cocaine and unclear if patient will need dialysis fdc, these are barriers to placement. (5) Obesity Qualifiers: Obesity classification: adult class 3 (BMI >= 40)
[2018-10-01 11:02] LABS: INR 2.7 Ratio; Prothrombin Time 27.3 sec (9.8-11.6)
[2018-10-01 11:23] LABS: Albumin 3.9 g/dL (3.4-5.0); Calcium 10.3 mg/dL (8.5-10.1); Carbon Dioxide 23.3 meq/L (21.0-32.0); Potassium 4.6 meq/L (3.5-5.1)
[2018-10-01 11:25] LABS: Phosphorus 7.1 mg/dL (2.5-4.9)
--- NOTE | 2018-10-01 12:26 | P.PNNP ---
Subjective Interval history: Urine output not documented. Her labs were reviewed. Physical Exam Vital signs: Vital Signs 09/30/18 16:00 09/30/18 16:46 09/30/18 20:00 Temperature 97.3 F L 97.7 F Pulse Rate 95 H 90 99 H Respiratory Rate 16 20 20 Blood Pressure 109/80 92/56 L Pulse Oximetry 93 L 94 L 09/30/18 21:04 10/01/18 00:00 10/01/18 02:41 Temperature 98.5 F Pulse Rate 93 H 93 H 92 H Respiratory Rate 20 20 15 Blood Pressure 92/73 L Pulse Oximetry 97 97 10/01/18 04:00 10/01/18 08:00 10/01/18 11:49 Temperature 98.1 F 97.7 F Pulse Rate 89 94 H 90 Respiratory Rate 20 20 20 Blood Pressure 101/62 93/58 L Pulse Oximetry 97 94 L Intake & Output 09/30/18 10/01/18 10/01/18 18:59 06:59 18:59 Intake Total 300 / 300 Output Total 3000 / 3000 0 / 0 Balance -3000 / -3000 300 / 300 Weight 154.1 kg Intake: Oral 300 / 300 Output: Urine 0 / 0 Hemodialysis Amount 3000 / 3000 Narrative: GENERAL: Well-appearing, no acute distress, sitting comfortably SKIN: Warm and dry. HEAD: Normocephalic. EYES: No scleral icterus. No injection or drainage. NECK: Supple, trachea midline. No JVD or lymphadenopathy. CARDIOVASCULAR: Heart sounds distant, Regular rate and rhythm without murmurs, gallops, or rubs. RESPIRATORY: Breath sounds equal bilaterally. No accessory muscle use. GASTROINTESTINAL: Abdomen soft, non-tender, nondistended. MUSCULOSKELETAL: No cyanosis, or edema. - Urinary Catheter Management Indwelling Urethral Catheter Cath placed during this visit: yes, but has since been removed by the nurse Reason for continuing: Hourly intake/output Insertion date: 09/08/18 Insertion time: 22:52 Removal date: 09/17/18 Removal time: 09:10 Assessment and Plan - Assessment (1) Acute kidney failure Code(s): N17.9 - Acute kidney failure, unspecified Status: Acute Plan: Could have developed contrast nephropathy after CTA. Has suffered ATN. Patient has become dialysis dependent. Had dialysis on 09/30/18. Repeat labs tomorrow. No signs of renal recovery so far. Monitor for renal recovery. Monitor urine output. HD as needed. (2) Respiratory failure Code(s): J96.90 - Respiratory failure, unspecified, unspecified whether with hypoxia or hypercapnia Status: Acute Plan: resolved. (3) Obesity Code(s): E66.9 - Obesity, unspecified Status: Acute Qualifiers: Obesity classification: adult class 3 (BMI >= 40) Plan: patient has obesity-hypoventilation syndrome. (4) Pulmonary embolism Code(s): I26.99 - Other pulmonary embolism without acute cor pulmonale Status : Acute Plan: On Coumadin.
--- NOTE | 2018-10-01 14:35 | P.PN ---
Subjective Interval history: Sitting up and walks in room. No cough or wheezing. Off o2 was in dialysis. INR is >2. Physical Exam Vital signs: Vital Signs 09/30/18 16:00 09/30/18 16:46 09/30/18 20:00 Temperature 97.3 F L 97.7 F Pulse Rate 95 H 90 99 H Respiratory Rate 16 20 20 Blood Pressure 109/80 92/56 L Pulse Oximetry 93 L 94 L 09/30/18 21:04 10/01/18 00:00 10/01/18 02:41 Temperature 98.5 F Pulse Rate 93 H 93 H 92 H Respiratory Rate 20 20 15 Blood Pressure 92/73 L Pulse Oximetry 97 97 10/01/18 04:00 10/01/18 08:00 10/01/18 11:49 Temperature 98.1 F 97.7 F Pulse Rate 89 94 H 90 Respiratory Rate 20 20 20 Blood Pressure 101/62 93/58 L Pulse Oximetry 97 94 L 10/01/18 12:00 Temperature 97.2 F L Pulse Rate 90 Respiratory Rate 20 Blood Pressure 113/65 Pulse Oximetry 92 L Intake & Output 09/30/18 10/01/18 10/01/18 18:59 06:59 18:59 Intake Total 300 / 300 Output Total 3000 / 3000 0 / 0 Balance -3000 / -3000 300 / 300 Weight 154.1 kg Intake: Oral 300 / 300 Output: Urine 0 / 0 Hemodialysis Amount 3000 / 3000 Narrative: GENERAL: Well-appearing, Obese lady sitting comfortably SKIN: Warm and dry. HEAD: Normocephalic. EYES: No scleral icterus. No injection or drainage. NECK: Supple, trachea midline. No JVD or lymphadenopathy. CARDIOVASCULAR: Heart sounds distant, Regular rate and rhythm without murmurs, gallops, or rubs. RESPIRATORY: Breath sounds equal bilaterally. No wheezes. No accessory muscle use. GASTROINTESTINAL: Abdomen soft, non-tender, nondistended. MUSCULOSKELETAL: No cyanosis, or edema. - Urinary Catheter Management Indwelling Urethral Catheter Cath placed during this visit: yes, but has since been removed by the nurse Reason for continuing: Hourly intake/output Insertion date: 09/08/18 Insertion time: 22:52 Removal date: 09/17/18 Removal time: 09:10 Results - Labs CBC & Chem 7: 09/30/18 11:48 10/01/18 10:17 Laboratory Results - last 24 hr 09/30/18 09/30/18 10/01/18 17:08 20:27 09:08 PT INR Sodium Potassium Chloride Carbon Dioxide Anion Gap BUN Creatinine Estimated GFR POC Glucose 132 H 123 H 134 H Random Glucose Calcium Phosphorus Albumin 10/01/18 10/01/18 10/01/18 10:07 10:17 12:20 PT 27.3 H INR 2.7 Sodium 132 L Potassium 4.6 Chloride 94 L Carbon Dioxide 23.3 Anion Gap 15 BUN 61 H Creatinine 8.27 H Estimated GFR 5 L POC Glucose 111 H Random Glucose 113 H Calcium 10.3 H Phosphorus 7.1 H Albumin 3.9 Assessment and Plan - Assessment (1) Sleep apnea treated with nocturnal BiPAP Code(s): G47.30 - Sleep apnea, unspecified Status: Acute (2) Pneumonia Code(s): J18.9 - Pneumonia, unspecified organism Status: Acute (3) Acute kidney failure Code(s): N17.9 - Acute kidney failure, unspecified Status: Acute (4) Respiratory failure Code(s): J96.90 - Respiratory failure, unspecified, unspecified whether with hypoxia or hypercapnia Status: Acute (5) Obesity Code(s): E66.9 - Obesity, unspecified Status: Acute (6) Pulmonary embolism Code(s): I26.99 - Other pulmonary embolism without acute cor pulmonale Status : Acute (7) Chronic pain Code(s): G89.29 - Other chronic pain Status: Acute (8) Dyspnea Code(s): R06.00 - Dyspnea, unspecified Status: Acute (9) Debility Code(s): R53.81 - Other malaise Status: Acute (10) CHF (congestive heart failure) Code(s): I50.9 - Heart failure, unspecified Status: Acute - Plan 1. CBC,BMP in am 2. Dialysis as planned 3. Duoneb nebs qid prn 4. Continue CPAP at HS daily 5. Rehab placement 6. Continue PT and OT 7. Continue anticoagulants . (5) Obesity Qualifiers: Obesity classification: adult class 3 (BMI >= 40)
[2018-10-02] MEDS: Oral Hygiene Kit OROPHARYNG SCH ×4 (00:33→15:17)
[2018-10-02] MEDS: Levothyroxine 50 MCG Tablet PO SCH (05:27)
--- NOTE | 2018-10-02 08:32 | P.PNNP ---
Subjective Interval history: Labs are pending today, 300 ml of urine is documented. Physical Exam Vital signs: Vital Signs 10/01/18 11:49 10/01/18 12:00 10/01/18 16:00 Temperature 97.2 F L 97.4 F L Pulse Rate 90 90 90 Respiratory Rate 20 20 18 Blood Pressure 113/65 96/55 L Pulse Oximetry 92 L 95 10/01/18 16:42 10/01/18 20:00 10/02/18 00:00 Temperature 97.9 F 97.8 F Pulse Rate 70 94 H 95 H Respiratory Rate 20 20 18 Blood Pressure 129/73 109/78 Pulse Oximetry 96 96 10/02/18 04:00 Temperature 97.7 F Pulse Rate 91 H Respiratory Rate 18 Blood Pressure 94/76 L Pulse Oximetry 98 Intake & Output 10/01/18 10/02/18 10/02/18 18:59 06:59 18:59 Intake Total 480 / 480 720 / 720 Output Total 300 / 300 Balance 480 / 480 420 / 420 Weight 154.1 kg Intake: Oral 480 / 480 720 / 720 Output: Urine 300 / 300 Other: # Voids 1 Date of Last Bowel Movement 10/01/18 # Bowel Movements 1 # Incontinent Bowel Movements 1 Narrative: GENERAL: Well-appearing, Obese lady sitting comfortably SKIN: Warm and dry. HEAD: Normocephalic. EYES: No scleral icterus. No injection or drainage. NECK: Supple, trachea midline. No JVD or lymphadenopathy. CARDIOVASCULAR: Heart sounds distant, Regular rate and rhythm without murmurs, gallops, or rubs. RESPIRATORY: Breath sounds equal bilaterally. No wheezes. No accessory muscle use. GASTROINTESTINAL: Abdomen soft, non-tender, nondistended. MUSCULOSKELETAL: No cyanosis, or edema. - Urinary Catheter Management Indwelling Urethral Catheter Cath placed during this visit: yes, but has since been removed by the nurse Reason for continuing: Hourly intake/output Insertion date: 09/08/18 Insertion time: 22:52 Removal date: 09/17/18 Removal time: 09:10 Assessment and Plan - Assessment (1) Acute kidney failure Code(s): N17.9 - Acute kidney failure, unspecified Status: Acute Plan: Could have developed contrast nephropathy after CTA. Has suffered ATN. Patient has become dialysis dependent. Urine output may be improving. Labs are pending. Has become dialysis dependent. Monitor for renal recovery. Monitor urine output. HD as needed. (2) Respiratory failure Code(s): J96.90 - Respiratory failure, unspecified, unspecified whether with hypoxia or hypercapnia Status: Acute Plan: resolved. (3) Obesity Code(s): E66.9 - Obesity, unspecified Status: Acute Qualifiers: Obesity classification: adult class 3 (BMI >= 40) Plan: patient has obesity-hypoventilation syndrome. (4) Pulmonary embolism Code(s): I26.99 - Other pulmonary embolism without acute cor pulmonale Status : Acute Plan: On Coumadin.
[2018-10-02] MEDS: Insulin NovoLIN Regular Correctional Sugar Inj SQ SCH ×4 (09:03→20:42)
[2018-10-02] MEDS: Chlorhexidine 0.12% Oral Kit 15 ML UDC OROPHARYNG SCH ×2 (09:04→20:47)
[2018-10-02] MEDS: Pregabalin 25 MG Capsule PO SCH ×2 (09:06→20:41)
[2018-10-02] MEDS: Nystatin 100,000 UNITS/GM Powder 15 GM Bottle TOPICAL SCH ×2 (10:12→20:43)
[2018-10-02] MEDS: Senna/Docusate Sodium 8.6/50 MG Tablet PO SCH ×2 (10:13→20:41)
[2018-10-02 10:50] LABS: INR 3.6 Ratio; Prothrombin Time 36.1 sec (9.8-11.6)
--- NOTE | 2018-10-02 10:55 | P.PN ---
Subjective Interval history: Follow-up for acute kidney failure on dialysis, PE. The patient is drowsy this morning, awakens to voice, has no specific medical complaints. Denies any fever /chills, chest pain, shortness breath, or abdominal complaints. Physical Exam Vital signs: Vital Signs 10/01/18 11:49 10/01/18 12:00 10/01/18 16:00 Temperature 97.2 F L 97.4 F L Pulse Rate 90 90 90 Respiratory Rate 20 20 18 Blood Pressure 113/65 96/55 L Pulse Oximetry 92 L 95 10/01/18 16:42 10/01/18 20:00 10/02/18 00:00 Temperature 97.9 F 97.8 F Pulse Rate 70 94 H 95 H Respiratory Rate 20 20 18 Blood Pressure 129/73 109/78 Pulse Oximetry 96 96 10/02/18 04:00 10/02/18 08:00 Temperature 97.7 F 97.9 F Pulse Rate 91 H 104 H Respiratory Rate 18 18 Blood Pressure 94/76 L 106/73 Pulse Oximetry 98 96 Intake & Output 10/01/18 10/02/18 10/02/18 18:59 06:59 18:59 Intake Total 480 / 480 720 / 720 Output Total 300 / 300 Balance 480 / 480 420 / 420 Weight 154.1 kg Intake: Oral 480 / 480 720 / 720 Output: Urine 300 / 300 Other: # Voids 1 Date of Last Bowel Movement 10/01/18 # Bowel Movements 1 # Incontinent Bowel Movements 1 Narrative: GENERAL: Well-nourished, well-developed obese middle-aged female patient in [facility]. SKIN: Warm and dry. No rash. HEENT: Normocephalic. Atraumatic. Pupils equal and round. Mucous membranes pink and moist. CARDIOVASCULAR: Regular rate and rhythm. No murmur appreciated. RESPIRATORY: No accessory muscle use. Clear to auscultation. Breath sounds equal bilaterally. GASTROINTESTINAL: Abdomen soft, non-tender, nondistended. Normoactive bowel sounds x4. MUSCULOSKELETAL: No obvious deformities. Extremities without clubbing, cyanosis , or edema. NEUROLOGICAL: Awake and alert. No obvious cranial nerve deficits. Moving all extremities spontaneously. Normal speech. - Urinary Catheter Management Indwelling Urethral Catheter Cath placed during this visit: yes, but has since been removed by the nurse Reason for continuing: Hourly intake/output Insertion date: 09/08/18 Insertion time: 22:52 Removal date: 09/17/18 Removal time: 09:10 Results - Labs CBC & Chem 7: 09/30/18 11:48 10/01/18 10:17 Laboratory Results - last 24 hr 10/01/18 10/01/18 10/01/18 10:07 10:17 12:20 PT 27.3 H INR 2.7 Sodium 132 L Potassium 4.6 Chloride 94 L Carbon Dioxide 23.3 Anion Gap 15 BUN 61 H Creatinine 8.27 H Estimated GFR 5 L POC Glucose 111 H Random Glucose 113 H Calcium 10.3 H Phosphorus 7.1 H Albumin 3.9 10/01/18 10/01/18 10/02/18 17:35 19:38 07:42 PT INR Sodium Potassium Chloride Carbon Dioxide Anion Gap BUN Creatinine Estimated GFR POC Glucose 114 H 152 H 107 Random Glucose Calcium Phosphorus Albumin Assessment and Plan - Assessment (1) CHF (congestive heart failure) Code(s): I50.9 - Heart failure, unspecified Status: Acute (2) Cardiomyopathy Code(s): I42.9 - Cardiomyopathy, unspecified Status: Acute (3) Acute kidney failure Code(s): N17.9 - Acute kidney failure, unspecified Status: Acute (4) Respiratory failure Code(s): J96.90 - Respiratory failure, unspecified, unspecified whether with hypoxia or hypercapnia Status: Acute (5) Obesity Code(s): E66.9 - Obesity, unspecified Status: Acute - Plan 47-year-old female with a medical history significant for PE, respiratory failure, [place] I on hemodialysis. Patient was initially brought by EMS due to respiratory failure and unresponsiveness. She underwent a trial of BiPAP but failed and was ultimately intubated and transferred to critical care. She was subsequently extubated during her hospital course, was found to have paroxysmal atrial fibrillation. Cardiology saw and evaluated the patient and was transitioned to Coumadin. Patient with renal failure and was started on hemodialysis by nephrology. Hospital course also complicated by PE. Respiratory failure Pulmonary embolism identified on CTA -Status post extubation on 09/16 -Pulmonology is following: CPAP at night -Continue on coumadin -INR is supratherapeutic today at 3.6, pharmacy is dosing Community-acquired pneumonia, sepsis criteria on admission Patient status post course of Zyvox -Blood culture, urine cultures, sputum culture negative to date Systolic heart failure -Status post milrinone on 09/13-09/18 to maintain cardiac index -Echo 09/09 was suboptimal due to patient habitus, left ventricular function appears severely reduced, global hypokinesis. -Cardiology following Acute kidney failure, possibly due to contrast from CTA -HD initiated on 09/12 -Patient has been dialysis dependent throughout admission without much renal recovery, continue to monitor -Nephrology following, appreciated assistance Hypertension -Was on Coreg, patient with intermittent low blood pressures and Coreg has been held -BP borderline low, continue to monitor Diabetes type 2 -Accu-Cheks, sliding scale Hypothyroidism -Continue patient's Synthroid Peripheral neuropathy -Continue patient's Lyrica 75 mg twice daily UDS: +cocaine DVT prophylaxis: on Coumadin Palliative care is following Discharge Planning: Discharged to SNF when patient is stable and cleared by nephrology. 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 (5) Obesity Qualifiers: Obesity classification: adult class 3 (BMI >= 40)
[2018-10-02 11:13] LABS: Albumin 3.5 g/dL (3.4-5.0); Calcium 9.9 mg/dL (8.5-10.1); Carbon Dioxide 24.6 meq/L (21.0-32.0); Potassium 5.2 meq/L (3.5-5.1)
[2018-10-02 11:24] LABS: Calcium 9.7 mg/dL (8.5-10.1); Carbon Dioxide 23.7 meq/L (21.0-32.0); Phosphorus 8.4 mg/dL (2.5-4.9); Potassium 5.1 meq/L (3.5-5.1)
--- NOTE | 2018-10-02 18:42 | P.PN ---
Subjective Interval history: Doing better. Dialysis today , Off o2 sat 95. No chest pains. Physical Exam Vital signs: Vital Signs 10/01/18 20:00 10/02/18 00:00 10/02/18 04:00 Temperature 97.9 F 97.8 F 97.7 F Pulse Rate 94 H 95 H 91 H Respiratory Rate 20 18 18 Blood Pressure 129/73 109/78 94/76 L Pulse Oximetry 96 96 98 10/02/18 08:00 10/02/18 12:00 10/02/18 16:00 Temperature 97.9 F 97.8 F Pulse Rate 93 H 87 93 H Respiratory Rate 18 18 Blood Pressure 106/73 105/65 Pulse Oximetry 96 95 Intake & Output 10/01/18 10/02/18 10/02/18 18:59 06:59 18:59 Intake Total 480 / 480 720 / 720 240 / 240 Output Total 300 / 300 1000 / 1000 Balance 480 / 480 420 / 420 -760 / -760 Weight 154.1 kg Intake: Oral 480 / 480 720 / 720 240 / 240 Output: Urine 300 / 300 0 / 0 Hemodialysis Amount 1000 / 1000 Other: # Voids 1 Date of Last Bowel Movement 10/01/18 # Bowel Movements 1 0 # Incontinent Bowel Movements 1 Narrative: GENERAL: Well-nourished, obese middle-aged female patient in [facility]. SKIN: Warm and dry. No rash. HEENT: Normocephalic. Atraumatic. Pupils equal and round. Mucous membranes pink and moist. CARDIOVASCULAR: Regular rate and rhythm. No murmur appreciated. RESPIRATORY: No accessory muscle use. Occ Wheeze upper chest. Breath sounds equal bilaterally. GASTROINTESTINAL: Abdomen soft, non-tender, nondistended. Normoactive bowel sounds x4. MUSCULOSKELETAL: No obvious deformities. Extremities without clubbing, cyanosis , or edema. NEUROLOGICAL: Awake and alert. No obvious cranial nerve deficits. Moving all extremities spontaneously. Normal speech. - Urinary Catheter Management Indwelling Urethral Catheter Cath placed during this visit: yes, but has since been removed by the nurse Reason for continuing: Hourly intake/output Insertion date: 09/08/18 Insertion time: 22:52 Removal date: 09/17/18 Removal time: 09:10 Results - Labs CBC & Chem 7: 09/30/18 11:48 10/02/18 10:10 Laboratory Results - last 24 hr 10/01/18 10/02/18 10/02/18 19:38 07:42 10:10 PT 36.1 H INR 3.6 Sodium Potassium Chloride Carbon Dioxide Anion Gap BUN Creatinine Estimated GFR POC Glucose 152 H 107 Random Glucose Calcium Phosphorus Albumin 10/02/18 10/02/18 10/02/18 10:10 10:10 12:25 PT INR Sodium 133 L 134 L Potassium 5.2 H 5.1 Chloride 96 L 96 L Carbon Dioxide 24.6 23.7 Anion Gap 12 14 BUN 89 H 88 H Creatinine 9.18 H 9.25 H Estimated GFR 5 L 5 L POC Glucose 121 H Random Glucose 142 H 142 H Calcium 9.9 9.7 Phosphorus 8.4 H D Albumin 3.5 10/02/18 16:58 PT INR Sodium Potassium Chloride Carbon Dioxide Anion Gap BUN Creatinine Estimated GFR POC Glucose 163 H Random Glucose Calcium Phosphorus Albumin Assessment and Plan - Assessment (1) Sleep apnea treated with nocturnal BiPAP Code(s): G47.30 - Sleep apnea, unspecified Status: Acute (2) Pneumonia Code(s): J18.9 - Pneumonia, unspecified organism Status: Acute (3) Acute kidney failure Code(s): N17.9 - Acute kidney failure, unspecified Status: Acute (4) Respiratory failure Code(s): J96.90 - Respiratory failure, unspecified, unspecified whether with hypoxia or hypercapnia Status: Acute (5) Obesity Code(s): E66.9 - Obesity, unspecified Status: Acute (6) Pulmonary embolism Code(s): I26.99 - Other pulmonary embolism without acute cor pulmonale Status : Acute (7) Chronic pain Code(s): G89.29 - Other chronic pain Status: Acute (8) Dyspnea Code(s): R06.00 - Dyspnea, unspecified Status: Acute (9) Debility Code(s): R53.81 - Other malaise Status: Acute (10) CHF (congestive heart failure) Code(s): I50.9 - Heart failure, unspecified Status: Acute - Plan 1. IS q3h bedside 2. Dialysis as planned 3. Duoneb nebs qid prn 4. Continue CPAP at HS daily 5. Rehab placement 6. Continue PT and OT 7. Continue anticoagulants . (5) Obesity Qualifiers: Obesity classification: adult class 3 (BMI >= 40)
[2018-10-02] MEDS ORDERED: guaiFENesin 600 MG ER Tablet PO ONE (19:37)
[2018-10-02] MEDS ORDERED: guaiFENesin 600 MG ER Tablet PO PRN (19:38)
[2018-10-03] MEDS: Oral Hygiene Kit OROPHARYNG SCH ×4 (01:36→15:01)
[2018-10-03] MEDS: Levothyroxine 50 MCG Tablet PO SCH (05:40)
[2018-10-03 06:08] LABS: INR 3.3 Ratio; Prothrombin Time 33.6 sec (9.8-11.6)
--- NOTE | 2018-10-03 08:29 | P.PNNP ---
Subjective Interval history: Had dialysis yesterday. 1 liter removed. She reports that she had urine output once yesterday, amount is not documented. Physical Exam Vital signs: Vital Signs 10/02/18 12:00 10/02/18 16:00 10/02/18 20:00 Temperature 97.8 F 97.7 F Pulse Rate 87 93 H 93 H Respiratory Rate 18 18 Blood Pressure 105/65 100/53 L Pulse Oximetry 95 96 10/02/18 20:30 10/02/18 23:46 10/03/18 00:00 Temperature 97.6 F Pulse Rate 91 H 88 Respiratory Rate 18 Blood Pressure 99/55 L Pulse Oximetry 95 97 10/03/18 03:45 10/03/18 04:00 10/03/18 07:08 Temperature 97.7 F Pulse Rate 100 H 95 H Respiratory Rate 18 18 Blood Pressure 115/57 L Pulse Oximetry 98 10/03/18 08:00 Temperature 97.4 F L Pulse Rate 84 Respiratory Rate 18 Blood Pressure 74/52 L Pulse Oximetry 97 Intake & Output 10/02/18 10/03/18 10/03/18 18:59 06:59 18:59 Intake Total 240 / 240 720 / 720 Output Total 1000 / 1000 Balance -760 / -760 720 / 720 Weight 154.1 kg Intake: Oral 240 / 240 720 / 720 Output: Urine 0 / 0 Hemodialysis Amount 1000 / 1000 Other: # Voids 3 Date of Last Bowel Movement 10/02/18 10/02/18 # Bowel Movements 0 Narrative: GENERAL: Well-nourished, obese middle-aged female patient in [facility]. SKIN: Warm and dry. No rash. HEENT: Normocephalic. Atraumatic. Pupils equal and round. Mucous membranes pink and moist. CARDIOVASCULAR: Regular rate and rhythm. No murmur appreciated. RESPIRATORY: No accessory muscle use. Occ Wheeze upper chest. Breath sounds equal bilaterally. GASTROINTESTINAL: Abdomen soft, non-tender, nondistended. Normoactive bowel sounds x4. MUSCULOSKELETAL: No obvious deformities. Extremities without clubbing, cyanosis , or edema. NEUROLOGICAL: Awake and alert. No focal deficits. - Urinary Catheter Management Indwelling Urethral Catheter Cath placed during this visit: yes, but has since been removed by the nurse Reason for continuing: Hourly intake/output Insertion date: 09/08/18 Insertion time: 22:52 Removal date: 09/17/18 Removal time: 09:10 Assessment and Plan - Assessment (1) Acute kidney failure Code(s): N17.9 - Acute kidney failure, unspecified Status: Acute Plan: Could have developed contrast nephropathy after CTA. Has suffered ATN. Patient has become dialysis dependent. Need to chart urine output. Likely will need dialysis again tomorrow. Monitor for renal recovery. Monitor urine output. HD as needed. (2) Respiratory failure Code(s): J96.90 - Respiratory failure, unspecified, unspecified whether with hypoxia or hypercapnia Status: Acute Plan: resolved. (3) Obesity Code(s): E66.9 - Obesity, unspecified Status: Acute Qualifiers: Obesity classification: adult class 3 (BMI >= 40) Plan: patient has obesity-hypoventilation syndrome. (4) Pulmonary embolism Code(s): I26.99 - Other pulmonary embolism without acute cor pulmonale Status : Acute Plan: On Coumadin.
[2018-10-03] MEDS: Pregabalin 25 MG Capsule PO SCH ×2 (09:26→21:06)
[2018-10-03] MEDS: Nystatin 100,000 UNITS/GM Powder 15 GM Bottle TOPICAL SCH ×2 (09:27→21:09)
[2018-10-03] MEDS: Insulin NovoLIN Regular Correctional Sugar Inj SQ SCH ×4 (09:28→21:09)
[2018-10-03] MEDS: Senna/Docusate Sodium 8.6/50 MG Tablet PO SCH ×2 (09:28→21:06)
[2018-10-03] MEDS: Chlorhexidine 0.12% Oral Kit 15 ML UDC OROPHARYNG SCH ×2 (09:28→21:09)
--- NOTE | 2018-10-03 09:36 | P.PN ---
Subjective Interval history: Follow-up for acute kidney failure on dialysis, PE. Patient is awake, alert, this morning. She denies any chest pain or shortness of breath. Denies any fevers or chills. She states she had some urine output last night. She is requesting a copy of the report showing that she has a PE, discussed with RN to provide. BP low this morning, patient denies any lightheadedness or dizziness. She has no other medical complaints at this time. Physical Exam Vital signs: Vital Signs 10/02/18 12:00 10/02/18 16:00 10/02/18 20:00 Temperature 97.8 F 97.7 F Pulse Rate 87 93 H 93 H Respiratory Rate 18 18 Blood Pressure 105/65 100/53 L Pulse Oximetry 95 96 10/02/18 20:30 10/02/18 23:46 10/03/18 00:00 Temperature 97.6 F Pulse Rate 91 H 88 Respiratory Rate 18 Blood Pressure 99/55 L Pulse Oximetry 95 97 10/03/18 03:45 10/03/18 04:00 10/03/18 07:08 Temperature 97.7 F Pulse Rate 100 H 95 H Respiratory Rate 18 18 Blood Pressure 115/57 L Pulse Oximetry 98 10/03/18 08:00 10/03/18 09:23 Temperature 97.4 F L Pulse Rate 84 85 Respiratory Rate 18 18 Blood Pressure 74/52 L 97/69 L Pulse Oximetry 97 Intake & Output 10/02/18 10/03/18 10/03/18 18:59 06:59 18:59 Intake Total 240 / 240 720 / 720 Output Total 1000 / 1000 Balance -760 / -760 720 / 720 Weight 154.1 kg Intake: Oral 240 / 240 720 / 720 Output: Urine 0 / 0 Hemodialysis Amount 1000 / 1000 Other: # Voids 3 Date of Last Bowel Movement 10/02/18 10/02/18 # Bowel Movements 0 Narrative: GENERAL: Well-nourished, well-developed obese middle-aged female patient in [facility]. SKIN: Warm and dry. No rash. HEENT: Normocephalic. Atraumatic. Pupils equal and round. Mucous membranes pink and moist. CARDIOVASCULAR: Regular rate and rhythm. No murmur appreciated. RESPIRATORY: No accessory muscle use. Clear to auscultation. Breath sounds equal bilaterally. GASTROINTESTINAL: Abdomen soft, non-tender, nondistended. Normoactive bowel sounds x4. MUSCULOSKELETAL: No obvious deformities. Extremities without clubbing, cyanosis , or edema. NEUROLOGICAL: Awake and alert. No obvious cranial nerve deficits. Moving all extremities spontaneously. Normal speech. - Urinary Catheter Management Indwelling Urethral Catheter Cath placed during this visit: yes, but has since been removed by the nurse Reason for continuing: Hourly intake/output Insertion date: 09/08/18 Insertion time: 22:52 Removal date: 09/17/18 Removal time: 09:10 Results - Labs CBC & Chem 7: 09/30/18 11:48 10/02/18 10:10 Laboratory Results - last 24 hr 10/02/18 10/02/18 10/02/18 10:10 10:10 10:10 PT 36.1 H INR 3.6 Sodium 133 L 134 L Potassium 5.2 H 5.1 Chloride 96 L 96 L Carbon Dioxide 24.6 23.7 Anion Gap 12 14 BUN 89 H 88 H Creatinine 9.18 H 9.25 H Estimated GFR 5 L 5 L POC Glucose Random Glucose 142 H 142 H Calcium 9.9 9.7 Phosphorus 8.4 H D Albumin 3.5 10/02/18 10/02/18 10/02/18 12:25 16:58 19:35 PT INR Sodium Potassium Chloride Carbon Dioxide Anion Gap BUN Creatinine Estimated GFR POC Glucose 121 H 163 H 119 H Random Glucose Calcium Phosphorus Albumin 10/03/18 10/03/18 04:42 07:23 PT 33.6 H INR 3.3 Sodium Potassium Chloride Carbon Dioxide Anion Gap BUN Creatinine Estimated GFR POC Glucose 108 Random Glucose Calcium Phosphorus Albumin Assessment and Plan - Assessment (1) CHF (congestive heart failure) Code(s): I50.9 - Heart failure, unspecified Status: Acute (2) Cardiomyopathy Code(s): I42.9 - Cardiomyopathy, unspecified Status: Acute (3) Acute kidney failure Code(s): N17.9 - Acute kidney failure, unspecified Status: Acute (4) Respiratory failure Code(s): J96.90 - Respiratory failure, unspecified, unspecified whether with hypoxia or hypercapnia Status: Acute (5) Obesity Code(s): E66.9 - Obesity, unspecified Status: Acute - Plan 47-year-old female with a medical history significant for PE, respiratory failure, [place] I on hemodialysis. Patient was initially brought by EMS due to respiratory failure and unresponsiveness. She underwent a trial of BiPAP but failed and was ultimately intubated and transferred to critical care. She was subsequently extubated during her hospital course, was found to have paroxysmal atrial fibrillation. Cardiology saw and evaluated the patient and was transitioned to Coumadin. Patient with renal failure and was started on hemodialysis by nephrology. Hospital course also complicated by PE. Respiratory failure Pulmonary embolism identified on CTA -Status post extubation on 09/16 -Pulmonology is following: CPAP at night -Continue on coumadin -INR is supratherapeutic today at 3.3, pharmacy is dosing -O2 sat currently stable on room air Community-acquired pneumonia, sepsis criteria on admission Patient status post course of Zyvox -Blood culture, urine cultures, sputum culture negative to date Systolic heart failure -Status post milrinone on 09/13-09/18 to maintain cardiac index -Echo 09/09 was suboptimal due to patient habitus, left ventricular function appears severely reduced, global hypokinesis. -Cardiology following Acute kidney failure, possibly due to contrast from CTA -HD initiated on 09/12 -Patient has been dialysis dependent throughout admission without much renal recovery, continue to monitor -Nephrology following, appreciate assistance Hypertension -Was on Coreg, patient with intermittent low blood pressures and Coreg has been held -BP borderline low, worse after receiving dialysis, continue to monitor Diabetes type 2 -Accu-Cheks, sliding scale Hypothyroidism -Continue patient's Synthroid Peripheral neuropathy -Continue patient's Lyrica 75 mg twice daily UDS: +cocaine DVT prophylaxis: on Coumadin Palliative care is following Discharge Planning: Discharged to SNF when patient is stable and cleared by nephrology. Suspect patient may need dialysis care home, these are barriers to placement. (5) Obesity Qualifiers: Obesity classification: adult class 3 (BMI >= 40)
--- NOTE | 2018-10-03 15:44 | P.PNPAL ---
Reason for Visit Reason for visit: a. To assist with evaluation and management of symptoms including: dyspnea, pain, debility. b. To assist medical decision maker(s) with: better understanding of current medical conditions; weighing benefits/burdens of medical treatment options; making medical treatment decisions. Subjective Subjective/Interval History: Follow-up medically necessary for symptom management. Patient seen and examined in the room. Patient is sleeping, easily arousable. She is oriented to self, place and situation. Patient denies pain, complains of fatigue. Patient reporting that she has been able to get out of bed and ambulate for short distances. Patient states that she wishes she could get out of bed by herself but she is not allowed due to the fact that she easily gets hypotensive. She is currently on room air. She states that she is ready to go to rehabilitation and then home. Patient reporting that she is voiding a larger quantity of urine at least once a day. Recent laboratory workup on 10/02/2018 revealing sodium 134, potassium 5.1, BUN/ creatinine 88/9.25, random glucose 142, calcium 9.7. Discussed possibility of patient needing hemodialysis for some time. Patient states that she would not want to have hemodialysis long-term. It appears she has planned some trips after discharge and she states that it would be very difficult for her to travel if she needs hemodialysis. Explained to patient that if hemodialysis is recommended by physicians and she stopped state against nephrology recommendations, she will not live very long. After conversation, patient states that she still wants to leave and definitely follow-up physician' s recommendations. Physical therapy following, recommending PT at rehab. Family/Friend Interactions: No family at bedside. . Advance Directives Living Will: Never completed Health Care Surrogate: Copy in medical record Durable Power of Director Of Parks And Recreation: Never completed Health Care Surrogate Name and Number: GARDNER SANITARIUMAvelina, daughter: [phone] Documented care wishes:: No Living Will. Completed designation of health care surrogate on 09/16/18 naming her daughter Avelina Hadley as ANKUR. . Objective Vital Signs: Vital Signs 10/02/18 16:00 10/02/18 20:00 10/02/18 20:30 Temperature 97.8 F 97.7 F Pulse Rate 93 H 93 H Respiratory Rate 18 18 Blood Pressure 105/65 100/53 L Pulse Oximetry 95 96 95 10/02/18 23:46 10/03/18 00:00 10/03/18 03:45 Temperature 97.6 F Pulse Rate 91 H 88 100 H Respiratory Rate 18 Blood Pressure 99/55 L Pulse Oximetry 97 10/03/18 04:00 10/03/18 07:08 10/03/18 08:00 Temperature 97.7 F 97.4 F L Pulse Rate 95 H 83 Respiratory Rate 18 18 18 Blood Pressure 115/57 L 74/52 L Pulse Oximetry 98 97 10/03/18 09:23 10/03/18 09:48 10/03/18 12:00 Temperature 97.6 F Pulse Rate 85 90 Respiratory Rate 18 18 Blood Pressure 97/69 L 120/52 L Pulse Oximetry 97 97 Intake & Output 10/02/18 10/03/18 10/03/18 18:59 06:59 18:59 Intake Total 240 / 240 720 / 720 Output Total 1000 / 1000 Balance -760 / -760 720 / 720 Weight 154.1 kg Intake: Oral 240 / 240 720 / 720 Output: Urine 0 / 0 Hemodialysis Amount 1000 / 1000 Other: # Voids 3 Date of Last Bowel Movement 10/02/18 10/02/18 # Bowel Movements 0 Physical Exam: CONSTITUTIONAL/GENERAL: This is an overweight female, on mech vent. TUBES/LINES/DRAINS:, vas-cath, PIV, nasal cannula. Bariatric bed. SKIN: No jaundice, rashes, or lesions. Ecchymoses on upper extremities. No wounds seen anteriorly. Normothermic. EYES: pupils equal and reactive. ENT: hearing adequate. Nose without bleeding or purulent drainage. Dry oral mucosa. CARDIOVASCULAR: Distant heart sounds. Regular rate and rhythm without murmurs. RESPIRATORY/CHEST: Mildly labored respirations. Diminished, breath sounds. Currently on nasal cannula GASTROINTESTINAL: Abdomen protuberant, soft, nondistended. No guarding. Bowel sounds distant. GENITOURINARY: Without palpable bladder distension. MUSCULOSKELETAL: Extremities with edema. NEUROLOGICAL: Awake and alert, oriented to self, place and situation. Follows commands. Speech clear. PSYCHIATRIC: Calm. Diagnostic Tests Laboratory: Laboratory Results - last 72 hr 09/30/18 09/30/18 10/01/18 17:08 20:27 09:08 PT INR Sodium Potassium Chloride Carbon Dioxide Anion Gap BUN Creatinine Estimated GFR POC Glucose 132 H 123 H 134 H Random Glucose Calcium Phosphorus Albumin 10/01/18 10/01/18 10/01/18 10:07 10:17 12:20 PT 27.3 H INR 2.7 Sodium 132 L Potassium 4.6 Chloride 94 L Carbon Dioxide 23.3 Anion Gap 15 BUN 61 H Creatinine 8.27 H Estimated GFR 5 L POC Glucose 111 H Random Glucose 113 H Calcium 10.3 H Phosphorus 7.1 H Albumin 3.9 10/01/18 10/01/18 10/02/18 17:35 19:38 07:42 PT INR Sodium Potassium Chloride Carbon Dioxide Anion Gap BUN Creatinine Estimated GFR POC Glucose 114 H 152 H 107 Random Glucose Calcium Phosphorus Albumin 10/02/18 10/02/18 10/02/18 10:10 10:10 10:10 PT 36.1 H INR 3.6 Sodium 133 L 134 L Potassium 5.2 H 5.1 Chloride 96 L 96 L Carbon Dioxide 24.6 23.7 Anion Gap 12 14 BUN 89 H 88 H Creatinine 9.18 H 9.25 H Estimated GFR 5 L 5 L POC Glucose Random Glucose 142 H 142 H Calcium 9.9 9.7 Phosphorus 8.4 H D Albumin 3.5 10/02/18 10/02/18 10/02/18 12:25 16:58 19:35 PT INR Sodium Potassium Chloride Carbon Dioxide Anion Gap BUN Creatinine Estimated GFR POC Glucose 121 H 163 H 119 H Random Glucose Calcium Phosphorus Albumin 10/03/18 10/03/18 10/03/18 04:42 07:23 12:16 PT 33.6 H INR 3.3 Sodium Potassium Chloride Carbon Dioxide Anion Gap BUN Creatinine Estimated GFR POC Glucose 108 131 H Random Glucose Calcium Phosphorus Albumin Result Diagrams: 09/30/18 11:48 10/04/18 07:00 Imaging: Abdomen Ultrasound 09/09/18 00:00 CONCLUSION: 1. Enlarged echogenic liver suggesting fatty infiltration 2. , Gallbladder not visualized Chest CTA 09/09/18 00:00 CONCLUSION: 1. Very limited examination due to patient body habitus. 2. Elongated filling defect in the right pulmonary artery suspicious for pulmonary embolus. Prominent artifact related to patient body habitus is seen through out the central pulmonary arteries limiting the evaluation. The segmental and subsegmental branches cannot be effectively evaluated on this study. Nuclear medicine VQ scan could be performed for further evaluation. 3. Moderate diffuse cardiomegaly. 4. Moderate-sized area of right lower lobe pulmonary consolidation. 5. Bilateral dependent lower lobe atelectasis. Head CT 09/09/18 00:00 CONCLUSION: No acute intracranial findings. . Venous Doppler Study 09/09/18 00:00 CONCLUSION: 1. Negative exam with no evidence of deep venous thrombosis. Central Venous Line 09/23/18 00:00 CONCLUSION: 1. Uncomplicated venous catheter change as above. Chest X-Ray 09/30/18 00:00 CONCLUSION: Borderline cardiomegaly. Procedures: * 09/12/18 - a line, vas-cath placement, HD started * 09/08/18 - intubated Assessment and Plan - Disease Oriented Problem List (1) Acute kidney failure (2) Respiratory failure (3) Obesity (4) Pulmonary embolism - Symptom Scale (1) Chronic pain 0-10 Scale: 0 (2) Dyspnea 0-10 Scale: Unable to quantify (3) Debility 0-10 Scale: Unable to quantify Pertinent Non-Medical Issues: Psychosocial: . 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 Has 1 daughter, Avelina. Spiritual: Shinto valerie. Legal: Patient is currently capacitated to make her own health care decisions. No Living Will. Completed designation of health care surrogate on 09/16/18 naming her daughter Avelina Hadley as HCS. Ethical issues impacting care: No known concerns at this time. Important Contacts: * Avelina Hadley, daughter/ health care surrogate: [phone] * Audra (sp?) Ramana, spouse: [phone] Prognosis: Mrs. Hadley is a 47 year old chronically, critically ill patient with multiple comorbidities now with respiratory, renal and heart failure. Overall prognosis appears poor. Code Status: Full Code Plan: * Decision maker: Patient is capacitated to make her own health care decisions. No Living Will. Completed designation of health care surrogate on 09/16/18 naming her daughter Avelina Hadley as HCS. * FULL CODE -confirmed with pt on 09/16/18 post medical extubation, she desires reintubation if needed. * Medical update provided. Patient desires continued aggressive care including FULL CODE. Patient is willing to continue with aggressive up until she is in a vegetative state. She expresses if she is at a point where she does not know who she is, unable to identify her family, not able to move or eat, she wants to be left to peacefully. * SYMPTOMS: Pain: denies pain during my visit. Potential pain sources include tubes, bedbound status, multiorgan failure. Dyspnea:medically extubated on 09/16. On oxygen via nasal cannula, tolerating well. Denies SOB. Debility: due to elevated BMI, recent, respiratory, renal and heart failure. No new medication recommendations at this time. * Palliative care will continue to follow to assist with symptom management and further clarification of goals of medical treatment as needed. . Attestation Attestation: To help prompt me to consider important information that might be impacting today's encounter and assessment, information from prior notes written by myself or my colleagues may have been "brought forward" into today's note. My signature on this note, however, is an attestation that I personally performed the exam, history, and/or decision-making noted today, and, unless otherwise indicated, the interactions with patient, family, and staff as well as the review of records all occurred today. I also attest that the listed assessment and stated plan reflect my best clinical judgment today based on the combination of historical information, prior notes, and today's exam/ interactions. When time spent is documented, it refers only to time spent today by the signer, or if indicated, combined time spent today by collaborating physician/nurse practitioner.
--- NOTE | 2018-10-03 19:09 | P.PN ---
Subjective Interval history: was up in a chair. No wheezing andis off O2. Used CPAP at HS. Dialysis done. Physical Exam Vital signs: Vital Signs 10/02/18 20:00 10/02/18 20:30 10/02/18 23:46 Temperature 97.7 F Pulse Rate 93 H 91 H Respiratory Rate 18 Blood Pressure 100/53 L Pulse Oximetry 96 95 10/03/18 00:00 10/03/18 03:45 10/03/18 04:00 Temperature 97.6 F 97.7 F Pulse Rate 88 100 H 95 H Respiratory Rate 18 18 Blood Pressure 99/55 L 115/57 L Pulse Oximetry 97 98 10/03/18 07:08 10/03/18 08:00 10/03/18 09:23 Temperature 97.4 F L Pulse Rate 83 85 Respiratory Rate 18 18 18 Blood Pressure 74/52 L 97/69 L Pulse Oximetry 97 10/03/18 09:48 10/03/18 12:00 10/03/18 16:00 Temperature 97.6 F 97.7 F Pulse Rate 90 88 Respiratory Rate 18 18 Blood Pressure 120/52 L 111/69 Pulse Oximetry 97 97 95 Intake & Output 10/03/18 10/03/18 10/04/18 06:59 18:59 06:59 Intake Total 720 / 720 480 / 480 Output Total 400 / 400 Balance 720 / 720 80 / 80 Weight 154.1 kg Intake: Oral 720 / 720 480 / 480 Output: Urine 400 / 400 Other: # Voids 3 Date of Last Bowel Movement 10/02/18 10/02/18 Narrative: GENERAL: Well-nourished, well-developed obese middle-aged female patient in [facility]. SKIN: Warm and dry. No rash. HEENT: Normocephalic. Atraumatic. Pupils equal and round. Mucous membranes pink and moist. CARDIOVASCULAR: Regular rate and rhythm. No murmur appreciated. RESPIRATORY: No accessory muscle use. Clear to auscultation. Breath sounds equal bilaterally. GASTROINTESTINAL: Abdomen soft, non-tender, nondistended. Normoactive bowel sounds x4. MUSCULOSKELETAL: No obvious deformities. Extremities without clubbing, cyanosis , or edema. NEUROLOGICAL: Awake and alert. No obvious cranial nerve deficits. Moving all extremities spontaneously. Normal speech. - Urinary Catheter Management Indwelling Urethral Catheter Cath placed during this visit: yes, but has since been removed by the nurse Reason for continuing: Hourly intake/output Insertion date: 09/08/18 Insertion time: 22:52 Removal date: 09/17/18 Removal time: 09:10 Results - Labs CBC & Chem 7: 09/30/18 11:48 10/02/18 10:10 Laboratory Results - last 24 hr 10/02/18 10/03/18 10/03/18 19:35 04:42 07:23 PT 33.6 H INR 3.3 POC Glucose 119 H 108 10/03/18 10/03/18 12:16 16:06 PT INR POC Glucose 131 H 106 Assessment and Plan - Assessment (1) Sleep apnea treated with nocturnal BiPAP Code(s): G47.30 - Sleep apnea, unspecified Status: Acute (2) Pneumonia Code(s): J18.9 - Pneumonia, unspecified organism Status: Acute (3) Acute kidney failure Code(s): N17.9 - Acute kidney failure, unspecified Status: Acute (4) Respiratory failure Code(s): J96.90 - Respiratory failure, unspecified, unspecified whether with hypoxia or hypercapnia Status: Acute (5) Obesity Code(s): E66.9 - Obesity, unspecified Status: Acute (6) Pulmonary embolism Code(s): I26.99 - Other pulmonary embolism without acute cor pulmonale Status : Acute (7) Chronic pain Code(s): G89.29 - Other chronic pain Status: Acute (8) Dyspnea Code(s): R06.00 - Dyspnea, unspecified Status: Acute (9) Debility Code(s): R53.81 - Other malaise Status: Acute (10) CHF (congestive heart failure) Code(s): I50.9 - Heart failure, unspecified Status: Acute - Plan 1. CBC BMP. 2. Dialysis as planned 3. D/C Duoneb nebs 4. Continue CPAP at HS daily 5. Rehab placement 6. Continue PT and OT 7. Continue anticoagulants . 8. Albuterol HFA, 2 puffs TID PRN (5) Obesity Qualifiers: Obesity classification: adult class 3 (BMI >= 40)
[2018-10-04] MEDS: Oral Hygiene Kit OROPHARYNG SCH ×5 (01:17→23:15)
[2018-10-04] MEDS: Levothyroxine 50 MCG Tablet PO SCH (06:15)
[2018-10-04 08:11] LABS: INR 2.5 Ratio
--- NOTE | 2018-10-04 08:50 | P.PNNP ---
Subjective Interval history: Patient was seen, no distress, no complaints. Stated she hasn't urinated today, yesterday 400mL urine documented. Labs for today pending. Patient to be dialyzed today. <Venkatesh Bernal - Last Filed: 10/04/18 08:48> Physical Exam Vital signs: Vital Signs 10/03/18 09:23 10/03/18 09:48 10/03/18 12:00 Temperature 97.6 F Pulse Rate 85 90 Respiratory Rate 18 18 Blood Pressure 97/69 L 120/52 L Pulse Oximetry 97 97 10/03/18 16:00 10/03/18 20:00 10/04/18 00:00 Temperature 97.7 F 97.7 F 96.3 F L Pulse Rate 88 87 94 H Respiratory Rate 18 20 20 Blood Pressure 111/69 130/59 L 93/62 L Pulse Oximetry 95 96 96 10/04/18 04:00 10/04/18 08:00 Temperature 97.4 F L 97.2 F L Pulse Rate 86 86 Respiratory Rate 20 16 Blood Pressure 104/53 L 109/55 L Pulse Oximetry 96 95 Intake & Output 10/03/18 10/04/18 10/04/18 18:59 06:59 18:59 Intake Total 480 / 480 Output Total 400 / 400 Balance 80 / 80 Intake: Oral 480 / 480 Output: Urine 400 / 400 Other: Date of Last Bowel Movement 10/02/18 10/02/18 Narrative: GENERAL: Well-nourished, obese middle-aged female patient in [facility]. SKIN: Warm and dry. No rash. HEENT: Normocephalic. Atraumatic. Pupils equal and round. Mucous membranes pink and moist. CARDIOVASCULAR: Regular rate and rhythm. No murmur appreciated. RESPIRATORY: No accessory muscle use. Breath sounds equal bilaterally. GASTROINTESTINAL: Abdomen soft, non-tender, nondistended. Normoactive bowel sounds x4. MUSCULOSKELETAL: No obvious deformities. Extremities without clubbing, cyanosis , or edema. NEUROLOGICAL: Awake and alert. No focal deficits. - Urinary Catheter Management Indwelling Urethral Catheter Cath placed during this visit: yes, but has since been removed by the nurse Reason for continuing: Hourly intake/output Insertion date: 09/08/18 Insertion time: 22:52 Removal date: 09/17/18 Removal time: 09:10 <Venkatesh Bernal - Last Filed: 10/04/18 08:48> Vital signs: Vital Signs 10/03/18 16:00 10/03/18 20:00 10/04/18 00:00 Temperature 97.7 F 97.7 F 96.3 F L Pulse Rate 88 87 94 H Respiratory Rate 18 20 20 Blood Pressure 111/69 130/59 L 93/62 L Pulse Oximetry 95 96 96 10/04/18 04:00 10/04/18 08:00 10/04/18 12:00 Temperature 97.4 F L 97.2 F L Pulse Rate 86 88 87 Respiratory Rate 20 16 Blood Pressure 104/53 L 109/55 L Pulse Oximetry 96 95 Intake & Output 10/03/18 10/04/18 10/04/18 18:59 06:59 18:59 Intake Total 480 / 480 Output Total 400 / 400 1000 / 1000 Balance 80 / 80 -1000 / -1000 Intake: Oral 480 / 480 Output: Urine 400 / 400 Hemodialysis Amount 1000 / 1000 Other: Date of Last Bowel Movement 10/02/18 10/02/18 - Urinary Catheter Management Indwelling Urethral Catheter Cath placed during this visit: no <Chris Majano - Last Filed: 10/04/18 14:35> Assessment and Plan - Assessment (1) Acute kidney failure Code(s): N17.9 - Acute kidney failure, unspecified Status: Acute Plan: Could have developed contrast nephropathy after CTA. Has suffered ATN. Patient has become dialysis dependent. Need to chart urine output. Patient to be dialyzed today. Monitor for renal recovery. Labs for today pending. Monitor urine output. HD as needed. (2) Respiratory failure Code(s): J96.90 - Respiratory failure, unspecified, unspecified whether with hypoxia or hypercapnia Status: Acute Plan: resolved. (3) Obesity Code(s): E66.9 - Obesity, unspecified Status: Acute Qualifiers: Obesity classification: adult class 3 (BMI >= 40) Plan: patient has obesity-hypoventilation syndrome. (4) Pulmonary embolism Code(s): I26.99 - Other pulmonary embolism without acute cor pulmonale Status : Acute Plan: On Coumadin. <Venkatesh Bernal - Last Filed: 10/04/18 08:48> - Assessment (1) Acute kidney failure Code(s): N17.9 - Acute kidney failure, unspecified Status: Acute (2) Respiratory failure Code(s): J96.90 - Respiratory failure, unspecified, unspecified whether with hypoxia or hypercapnia Status: Acute (3) Obesity Code(s): E66.9 - Obesity, unspecified Status: Acute Qualifiers: Obesity classification: adult class 3 (BMI >= 40) (4) Pulmonary embolism Code(s): I26.99 - Other pulmonary embolism without acute cor pulmonale Status : Acute - Attending Attestation patient was seen and examined. Labs were reviewed. Urine output may be improving ? Continues to be dialysis dependent. Agree with above assessment and plan. <Chris Majano - Last Filed: 10/04/18 14:35>
[2018-10-04 09:04] LABS: Albumin 3.2 g/dL (3.4-5.0); Calcium 9.2 mg/dL (8.5-10.1); Carbon Dioxide 26.4 meq/L (21.0-32.0); Phosphorus 6.8 mg/dL (2.5-4.9); Potassium 4.8 meq/L (3.5-5.1)
[2018-10-04] MEDS: Insulin NovoLIN Regular Correctional Sugar Inj SQ SCH ×4 (09:05→20:31)
[2018-10-04] MEDS: Chlorhexidine 0.12% Oral Kit 15 ML UDC OROPHARYNG SCH ×2 (09:05→20:31)
--- NOTE | 2018-10-04 09:25 | P.PN ---
Subjective Interval history: Follow-up for acute renal failure on dialysis, PE. Patient is sleeping upon my arrival, awakens to voice, however still drowsy. She denies any specific medical complaints including no chest pain or shortness of breath today. She is going for dialysis today. 400 cc urine output documented yesterday, none today. Physical Exam Vital signs: Vital Signs 10/03/18 09:23 10/03/18 09:48 10/03/18 12:00 Temperature 97.6 F Pulse Rate 85 90 Respiratory Rate 18 18 Blood Pressure 97/69 L 120/52 L Pulse Oximetry 97 97 10/03/18 16:00 10/03/18 20:00 10/04/18 00:00 Temperature 97.7 F 97.7 F 96.3 F L Pulse Rate 88 87 94 H Respiratory Rate 18 20 20 Blood Pressure 111/69 130/59 L 93/62 L Pulse Oximetry 95 96 96 10/04/18 04:00 10/04/18 08:00 Temperature 97.4 F L 97.2 F L Pulse Rate 86 86 Respiratory Rate 20 16 Blood Pressure 104/53 L 109/55 L Pulse Oximetry 96 95 Intake & Output 10/03/18 10/04/18 10/04/18 18:59 06:59 18:59 Intake Total 480 / 480 Output Total 400 / 400 Balance 80 / 80 Intake: Oral 480 / 480 Output: Urine 400 / 400 Other: Date of Last Bowel Movement 10/02/18 10/02/18 Narrative: GENERAL: Well-nourished, obese middle-aged female patient in [facility]. SKIN: Warm and dry. No rash. HEENT: Normocephalic. Atraumatic. Pupils equal and round. Mucous membranes pink and moist. CARDIOVASCULAR: Regular rate and rhythm. No murmur appreciated. RESPIRATORY: No accessory muscle use. Breath sounds equal bilaterally. GASTROINTESTINAL: Abdomen soft, non-tender, nondistended. Normoactive bowel sounds x4. MUSCULOSKELETAL: No obvious deformities. Extremities without clubbing, cyanosis , or edema. NEUROLOGICAL: Awake and alert. No focal deficits. Moving all extremities spontaneously. Normal speech. - Urinary Catheter Management Indwelling Urethral Catheter Cath placed during this visit: yes, but has since been removed by the nurse Reason for continuing: Hourly intake/output Insertion date: 09/08/18 Insertion time: 22:52 Removal date: 09/17/18 Removal time: 09:10 Results - Labs CBC & Chem 7: 09/30/18 11:48 10/04/18 07:00 Laboratory Results - last 24 hr 10/03/18 10/03/18 10/04/18 12:16 16:06 07:00 PT 25.0 H INR 2.5 Sodium Potassium Chloride Carbon Dioxide Anion Gap BUN Creatinine Estimated GFR POC Glucose 131 H 106 Random Glucose Calcium Phosphorus Albumin 10/04/18 10/04/18 07:00 08:36 PT INR Sodium 134 L Potassium 4.8 Chloride 98 Carbon Dioxide 26.4 Anion Gap 10 BUN 81 H Creatinine 6.70 H Estimated GFR 7 L POC Glucose 110 Random Glucose 110 H Calcium 9.2 Phosphorus 6.8 H D Albumin 3.2 L Assessment and Plan - Assessment (1) CHF (congestive heart failure) Code(s): I50.9 - Heart failure, unspecified Status: Acute (2) Cardiomyopathy Code(s): I42.9 - Cardiomyopathy, unspecified Status: Acute (3) Acute kidney failure Code(s): N17.9 - Acute kidney failure, unspecified Status: Acute (4) Respiratory failure Code(s): J96.90 - Respiratory failure, unspecified, unspecified whether with hypoxia or hypercapnia Status: Acute (5) Obesity Code(s): E66.9 - Obesity, unspecified Status: Acute - Plan 47-year-old female with a medical history significant for PE, respiratory failure, [place] I on hemodialysis. Patient was initially brought by EMS due to respiratory failure and unresponsiveness. She underwent a trial of BiPAP but failed and was ultimately intubated and transferred to critical care. She was subsequently extubated during her hospital course, was found to have paroxysmal atrial fibrillation. Cardiology saw and evaluated the patient and was transitioned to Coumadin. Patient with renal failure and was started on hemodialysis by nephrology. Hospital course also complicated by PE. Respiratory failure Pulmonary embolism identified on CTA -Status post extubation on 09/16 -Pulmonology is following: CPAP at night -Continue on coumadin -INR is therapeutic at 2.5 today, pharmacy is dosing -O2 sat currently stable on room air Community-acquired pneumonia, sepsis criteria on admission Patient is status post course of Zyvox -Blood culture, urine cultures, sputum culture negative to date Systolic heart failure -Status post milrinone on 09/13-09/18 to maintain cardiac index -Echo 09/09 was suboptimal due to patient habitus, left ventricular function appears severely reduced, global hypokinesis. -Cardiology following Acute kidney failure, possibly due to contrast from CTA -HD initiated on 09/12 -Patient has been dialysis dependent throughout admission without much renal recovery, continue to monitor -Nephrology following, appreciate assistance Hypertension -Was on Coreg, patient with intermittent low blood pressures and Coreg has been held -BP borderline low, worse after receiving dialysis, continue to monitor Diabetes type 2 -Accu-Cheks, sliding scale Hypothyroidism -Continue patient's Synthroid Peripheral neuropathy -Continue patient's Lyrica 75 mg twice daily UDS: +cocaine DVT prophylaxis: on Coumadin Palliative care is following Discharge Planning: Discharge to SNF when patient is stable and cleared by nephrology. Suspect patient may need dialysis retirement, awaiting final decision from nephrology. (5) Obesity Qualifiers: Obesity classification: adult class 3 (BMI >= 40)
[2018-10-04] MEDS: Heparin 10,000 UNITS/10 ML Vial (for IV use) OTHER PRN (12:45)
[2018-10-04] MEDS: Pregabalin 25 MG Capsule PO SCH ×2 (14:40→20:27)
[2018-10-04] MEDS: Senna/Docusate Sodium 8.6/50 MG Tablet PO SCH ×2 (14:41→20:33)
[2018-10-04] MEDS: Nystatin 100,000 UNITS/GM Powder 15 GM Bottle TOPICAL SCH ×2 (14:41→20:31)
--- NOTE | 2018-10-04 16:57 | P.PNPAL ---
Reason for Visit Reason for visit: a. To assist with evaluation and management of symptoms including: dyspnea, pain, debility. b. To assist medical decision maker(s) with: better understanding of current medical conditions; weighing benefits/burdens of medical treatment options; making medical treatment decisions. Subjective Subjective/Interval History: Follow-up medically necessary for symptom management and patient support. Patient seen and examined in the room. Patient had hemodialysis today. She is currently sitting up in a chair, awake, alert and oriented to self, place and situation. She is talking over the phone with her daughter. Patient denies pain and shortness of breath. Patient reports that she has just ambulated to the toilet and voided a decent amount of urine, unfortunately it was not measured. She remains on room air and requires CPAP machine at night. O2 saturation on room air currently 97%. No respiratory distress noted. Patient states that she is ready to go to rehabilitation with hopes to regain her strength. She voices that she is willing to work with physical therapy so that she can minimize her stay at rehabilitation. Patient states that she is ready to go home. Case discussed with nephrology Venaktesh Costa, who states that nephrology feels that patient is still in acute renal failure and is not sure whether patient will require long-term hemodialysis. Discussed possibility of patient needing hemodialysis while in rehabilitation, and if so may require PermCath placement. SHANEKA will discuss further with insurance account specialist. Case discussed with bedside RN and case management. Physical therapy following, recommending PT at rehab. Family/Friend Interactions: No family at bedside. . Advance Directives Living Will: Never completed Health Care Surrogate: Copy in medical record Durable Power of Supervisor [facility]: Never completed Health Care Surrogate Name and Number: Avelina PASCUAL, daughter: [phone] Documented care wishes:: No Living Will. Completed designation of health care surrogate on 09/16/18 naming her daughter Avelina Hadley as ANKUR. . Objective Vital Signs: Vital Signs 10/03/18 20:00 10/04/18 00:00 10/04/18 04:00 Temperature 97.7 F 96.3 F L 97.4 F L Pulse Rate 87 94 H 86 Respiratory Rate 20 20 20 Blood Pressure 130/59 L 93/62 L 104/53 L Pulse Oximetry 96 96 96 10/04/18 08:00 10/04/18 12:00 10/04/18 14:37 Temperature 97.2 F L Pulse Rate 88 87 95 H Respiratory Rate 16 Blood Pressure 109/55 L 119/79 Pulse Oximetry 95 10/04/18 16:40 Temperature Pulse Rate Respiratory Rate Blood Pressure Pulse Oximetry 97 Intake & Output 10/03/18 10/04/18 10/04/18 18:59 06:59 18:59 Intake Total 480 / 480 Output Total 400 / 400 1000 / 1000 Balance 80 / 80 -1000 / -1000 Intake: Oral 480 / 480 Output: Urine 400 / 400 Hemodialysis Amount 1000 / 1000 Other: Date of Last Bowel Movement 10/02/18 10/02/18 Physical Exam: CONSTITUTIONAL/GENERAL: This is an overweight female, sitting up in a chair in no acute distress. TUBES/LINES/DRAINS: vas-cath, PIV. Bariatric bed. SKIN: No jaundice, rashes, or lesions. Ecchymoses on upper extremities. No wounds seen anteriorly. Normothermic. EYES: pupils equal and reactive. ENT: hearing adequate. Nose without bleeding or purulent drainage. Dry oral mucosa. CARDIOVASCULAR: Distant heart sounds. S1, S2 normal. No JVD. RESPIRATORY/CHEST: Mildly labored respirations. Clear breath sounds. On room air. GASTROINTESTINAL: Abdomen protuberant, soft, nondistended. No guarding. Positive bowel sounds GENITOURINARY: Without palpable bladder distension. MUSCULOSKELETAL: Extremities with edema. NEUROLOGICAL: Awake and alert, oriented to self, place and situation. Follows commands. Speech clear. PSYCHIATRIC: Calm. Diagnostic Tests Laboratory: Laboratory Results - last 72 hr 10/01/18 10/01/18 10/02/18 17:35 19:38 07:42 PT INR Sodium Potassium Chloride Carbon Dioxide Anion Gap BUN Creatinine Estimated GFR POC Glucose 114 H 152 H 107 Random Glucose Calcium Phosphorus Albumin 10/02/18 10/02/18 10/02/18 10:10 10:10 10:10 PT 36.1 H INR 3.6 Sodium 133 L 134 L Potassium 5.2 H 5.1 Chloride 96 L 96 L Carbon Dioxide 24.6 23.7 Anion Gap 12 14 BUN 89 H 88 H Creatinine 9.18 H 9.25 H Estimated GFR 5 L 5 L POC Glucose Random Glucose 142 H 142 H Calcium 9.9 9.7 Phosphorus 8.4 H D Albumin 3.5 10/02/18 10/02/18 10/02/18 12:25 16:58 19:35 PT INR Sodium Potassium Chloride Carbon Dioxide Anion Gap BUN Creatinine Estimated GFR POC Glucose 121 H 163 H 119 H Random Glucose Calcium Phosphorus Albumin 10/03/18 10/03/18 10/03/18 04:42 07:23 12:16 PT 33.6 H INR 3.3 Sodium Potassium Chloride Carbon Dioxide Anion Gap BUN Creatinine Estimated GFR POC Glucose 108 131 H Random Glucose Calcium Phosphorus Albumin 10/03/18 10/04/18 10/04/18 16:06 07:00 07:00 PT 25.0 H INR 2.5 Sodium 134 L Potassium 4.8 Chloride 98 Carbon Dioxide 26.4 Anion Gap 10 BUN 81 H Creatinine 6.70 H Estimated GFR 7 L POC Glucose 106 Random Glucose 110 H Calcium 9.2 Phosphorus 6.8 H D Albumin 3.2 L 10/04/18 10/04/18 08:36 11:47 PT INR Sodium Potassium Chloride Carbon Dioxide Anion Gap BUN Creatinine Estimated GFR POC Glucose 110 103 Random Glucose Calcium Phosphorus Albumin Result Diagrams: 09/30/18 11:48 10/06/18 05:49 Imaging: Abdomen Ultrasound 09/09/18 00:00 CONCLUSION: 1. Enlarged echogenic liver suggesting fatty infiltration 2. , Gallbladder not visualized Chest CTA 09/09/18 00:00 CONCLUSION: 1. Very limited examination due to patient body habitus. 2. Elongated filling defect in the right pulmonary artery suspicious for pulmonary embolus. Prominent artifact related to patient body habitus is seen through out the central pulmonary arteries limiting the evaluation. The segmental and subsegmental branches cannot be effectively evaluated on this study. Nuclear medicine VQ scan could be performed for further evaluation. 3. Moderate diffuse cardiomegaly. 4. Moderate-sized area of right lower lobe pulmonary consolidation. 5. Bilateral dependent lower lobe atelectasis. Head CT 09/09/18 00:00 CONCLUSION: No acute intracranial findings. . Venous Doppler Study 09/09/18 00:00 CONCLUSION: 1. Negative exam with no evidence of deep venous thrombosis. Central Venous Line 09/23/18 00:00 CONCLUSION: 1. Uncomplicated venous catheter change as above. Chest X-Ray 09/30/18 00:00 CONCLUSION: Borderline cardiomegaly. Procedures: * 09/12/18 - a line, vas-cath placement, HD started * 09/08/18 - intubated Assessment and Plan - Disease Oriented Problem List (1) Acute kidney failure (2) Respiratory failure (3) Obesity (4) Pulmonary embolism - Symptom Scale (1) Chronic pain 0-10 Scale: 0 (2) Dyspnea 0-10 Scale: Unable to quantify (3) Debility 0-10 Scale: Unable to quantify Pertinent Non-Medical Issues: Psychosocial: . Disabled, previously worked as a [employer]. Has 1 daughter, Avelina. Spiritual: [employer]. Legal: Patient is currently capacitated to make her own health care decisions. No Living Will. Completed designation of health care surrogate on 09/16/18 naming her daughter Avelina Hadley as HCS. Ethical issues impacting care: No known concerns at this time. Important Contacts: * Avelina Hadley, daughter/ health care surrogate: [phone] * Audra (sp?) Ramana, spouse: [phone] Prognosis: Mrs. Hadley is a 47 year old chronically, critically ill patient with multiple comorbidities now with respiratory, renal and heart failure. Overall prognosis appears poor. Code Status: Full Code Plan: * Decision maker: Patient is capacitated to make her own health care decisions. No Living Will. Completed designation of health care surrogate on 09/16/18 naming her daughter Avelina Hadley as HCS. * FULL CODE -confirmed with pt on 09/16/18 post medical extubation, she desires reintubation if needed. * Goals : Patient desires continued aggressive care including FULL CODE. Patient is willing to continue with aggressive treatment up until she is in a vegetative state. She expresses if she is at a point where she does not know who she is, unable to identify her family, not able to move or eat, she wants to be left to peacefully. Patient is looking forward to going to rehabilitation. * SYMPTOMS: Pain: denies pain during my visit. Potential pain sources include tubes, bedbound status, multiorgan failure. Dyspnea:medically extubated on 09/16. Now on room air with O2 saturation in the high 90s. Denies SOB. Debility : due to elevated BMI, recent, respiratory, renal and heart failure. No new medication recommendations at this time. * Palliative care will continue to follow to assist with symptom management and further clarification of goals of medical treatment as needed. . Attestation Attestation: To help prompt me to consider important information that might be impacting today's encounter and assessment, information from prior notes written by myself or my colleagues may have been "brought forward" into today's note. My signature on this note, however, is an attestation that I personally performed the exam, history, and/or decision-making noted today, and, unless otherwise indicated, the interactions with patient, family, and staff as well as the review of records all occurred today. I also attest that the listed assessment and stated plan reflect my best clinical judgment today based on the combination of historical information, prior notes, and today's exam/ interactions. When time spent is documented, it refers only to time spent today by the signer, or if indicated, combined time spent today by collaborating physician/nurse practitioner.
[2018-10-05] MEDS: Oral Hygiene Kit OROPHARYNG SCH ×4 (04:17→23:33)
[2018-10-05] MEDS: Levothyroxine 50 MCG Tablet PO SCH (05:07)
--- NOTE | 2018-10-05 08:10 | P.PN ---
Subjective Interval history: Follow-up for acute renal failure on dialysis, PE. The patient is drowsy this morning, awoken from her sleep, denies any medical complaints. She falls back asleep during examination. Discussed with RN, no acute concerns. Vitals reviewed and stable. Physical Exam Vital signs: Vital Signs 10/04/18 12:00 10/04/18 14:37 10/04/18 16:00 Temperature 97.8 F Pulse Rate 87 95 H 95 H Respiratory Rate 17 Blood Pressure 119/79 150/57 H Pulse Oximetry 97 10/04/18 16:40 10/04/18 20:00 10/05/18 00:00 Temperature 98 F 97.5 F L Pulse Rate 98 H 95 H Respiratory Rate 20 18 Blood Pressure 99/65 L 98/51 L Pulse Oximetry 97 98 96 10/05/18 04:00 Temperature 97.8 F Pulse Rate 95 H Respiratory Rate 19 Blood Pressure 110/54 L Pulse Oximetry 99 Intake & Output 10/04/18 10/05/18 10/05/18 18:59 06:59 18:59 Intake Total 850 / 850 480 / 480 Output Total 1700 / 1700 Balance -850 / -850 480 / 480 Weight 162.3 kg Intake: Oral 850 / 850 480 / 480 Output: Urine 700 / 700 Hemodialysis Amount 1000 / 1000 Other: # Voids 2 # Bowel Movements 1 0 Narrative: GENERAL: Well-nourished, obese middle-aged female patient in [facility]. SKIN: Warm and dry. No rash. HEENT: Normocephalic. Atraumatic. Pupils equal and round. Mucous membranes pink and moist. CARDIOVASCULAR: Regular rate and rhythm. No murmur appreciated. RESPIRATORY: No accessory muscle use. Breath sounds equal bilaterally. GASTROINTESTINAL: Abdomen soft, non-tender, nondistended. Normoactive bowel sounds x4. MUSCULOSKELETAL: No obvious deformities. Extremities without clubbing, cyanosis , or edema. NEUROLOGICAL: Awake and alert. No focal deficits. Moving all extremities spontaneously. Normal speech. - Urinary Catheter Management Indwelling Urethral Catheter Cath placed during this visit: yes, but has since been removed by the nurse Reason for continuing: Hourly intake/output Insertion date: 09/08/18 Insertion time: 22:52 Removal date: 09/17/18 Removal time: 09:10 Results - Labs CBC & Chem 7: 09/30/18 11:48 10/04/18 07:00 Laboratory Results - last 24 hr 10/04/18 10/04/18 10/04/18 07:00 07:00 08:36 PT 25.0 H INR 2.5 Sodium 134 L Potassium 4.8 Chloride 98 Carbon Dioxide 26.4 Anion Gap 10 BUN 81 H Creatinine 6.70 H Estimated GFR 7 L POC Glucose 110 Random Glucose 110 H Calcium 9.2 Phosphorus 6.8 H D Albumin 3.2 L 10/04/18 10/04/18 10/04/18 11:47 18:03 19:23 PT INR Sodium Potassium Chloride Carbon Dioxide Anion Gap BUN Creatinine Estimated GFR POC Glucose 103 134 H 140 H Random Glucose Calcium Phosphorus Albumin Assessment and Plan - Assessment (1) CHF (congestive heart failure) Code(s): I50.9 - Heart failure, unspecified Status: Acute (2) Cardiomyopathy Code(s): I42.9 - Cardiomyopathy, unspecified Status: Acute (3) Acute kidney failure Code(s): N17.9 - Acute kidney failure, unspecified Status: Acute (4) Respiratory failure Code(s): J96.90 - Respiratory failure, unspecified, unspecified whether with hypoxia or hypercapnia Status: Acute (5) Obesity Code(s): E66.9 - Obesity, unspecified Status: Acute - Plan 47-year-old female with a medical history significant for PE, respiratory failure, AK I on hemodialysis. Patient was initially brought by EMS due to respiratory failure and unresponsiveness. She underwent a trial of BiPAP but failed and was ultimately intubated and transferred to critical care. She was subsequently extubated during her hospital course, was found to have paroxysmal atrial fibrillation. Cardiology saw and evaluated the patient and was transitioned to Coumadin. Patient with renal failure and was started on hemodialysis by nephrology. Hospital course also complicated by PE. Respiratory failure Pulmonary embolism identified on CTA -Status post extubation on 09/16 -Pulmonology is following: on CPAP at night -Continue on coumadin -INR is subtherapeutic at 1.8 today, pharmacy is dosing and following -O2 sat currently stable on room air Community-acquired pneumonia, sepsis criteria on admission Patient is status post course of Zyvox -Blood culture, urine cultures, sputum culture negative to date Systolic heart failure -Status post milrinone on 09/13-09/18 to maintain cardiac index -Echo 09/09 was suboptimal due to patient habitus, left ventricular function appears severely reduced, global hypokinesis. -Cardiology following Acute kidney failure, possibly due to contrast from CTA -HD initiated on 09/12 -Patient has been dialysis dependent throughout admission without much renal recovery, continue to monitor -Nephrology following, appreciate assistance Hypertension -Was on Coreg, patient with intermittent low blood pressures and Coreg has been held -BP borderline low, worse after receiving dialysis, continue to monitor Diabetes type 2 -Accu-Cheks, sliding scale Hypothyroidism -Continue patient's Synthroid Peripheral neuropathy -Continue patient's Lyrica 75 mg twice daily UDS: +cocaine DVT prophylaxis: on Coumadin Palliative care is following Discharge Planning: Discharge to SNF when patient is stable and cleared by nephrology. Suspect patient may need dialysis shelter, awaiting final decision from nephrology. (5) Obesity Qualifiers: Obesity classification: adult class 3 (BMI >= 40)
[2018-10-05 08:20] LABS: INR 1.8 Ratio; Prothrombin Time 18.6 sec (9.8-11.6)
[2018-10-05] MEDS: Pregabalin 25 MG Capsule PO SCH ×2 (09:09→20:12)
[2018-10-05] MEDS: Nystatin 100,000 UNITS/GM Powder 15 GM Bottle TOPICAL SCH ×2 (09:09→20:15)
[2018-10-05] MEDS: Insulin NovoLIN Regular Correctional Sugar Inj SQ SCH ×4 (09:09→20:13)
[2018-10-05] MEDS: Senna/Docusate Sodium 8.6/50 MG Tablet PO SCH ×2 (09:09→20:12)
[2018-10-05] MEDS: Chlorhexidine 0.12% Oral Kit 15 ML UDC OROPHARYNG SCH ×2 (09:10→20:12)
--- NOTE | 2018-10-05 17:11 | P.PNNP ---
Subjective Interval history: tired today, no acute complaints Physical Exam Vital signs: Vital Signs 10/04/18 20:00 10/05/18 00:00 10/05/18 04:00 Temperature 98 F 97.5 F L 97.8 F Pulse Rate 98 H 95 H 95 H Respiratory Rate 20 18 19 Blood Pressure 99/65 L 98/51 L 110/54 L Pulse Oximetry 98 96 99 10/05/18 08:00 10/05/18 11:23 10/05/18 12:00 Temperature 98.1 F 98.1 F Pulse Rate 91 H 86 Respiratory Rate 18 18 Blood Pressure 96/57 L 123/57 L Pulse Oximetry 97 99 95 10/05/18 16:00 Temperature Pulse Rate 102 H Respiratory Rate Blood Pressure Pulse Oximetry Intake & Output 10/04/18 10/05/18 10/05/18 18:59 06:59 18:59 Intake Total 850 / 850 480 / 480 Output Total 1700 / 1700 450 / 450 Balance -850 / -850 480 / 480 -450 / -450 Weight 162.3 kg Intake: Oral 850 / 850 480 / 480 Output: Urine 700 / 700 450 / 450 Hemodialysis Amount 1000 / 1000 Other: # Voids 2 # Bowel Movements 1 0 - Constitutional no acute distress - Routine HEENT Exam Head: Present: normocephalic Eye: Present: EOMI ENT: Present: mucous membranes moist - Routine Neck Exam Present: supple - Routine Respiratory Exam Present: decreased breath sounds - Routine Cardiovascular Exam Present: RRR - Routine Abdominal Exam Present: soft - Routine Extremities Exam Present: vascular access - Routine Skin Exam Present: intact - Routine Neurological Exam Present: alert - Detailed Neurological Exam: Coma Scale Eye Opening: Spontaneous - Routine Psychiatric Exam Present: normal affect - Urinary Catheter Management Indwelling Urethral Catheter Cath placed during this visit: yes, but has since been removed by the nurse Reason for continuing: Hourly intake/output Insertion date: 09/08/18 Insertion time: 22:52 Removal date: 09/17/18 Removal time: 09:10 Assessment and Plan - Assessment (1) Acute kidney failure Code(s): N17.9 - Acute kidney failure, unspecified Status: Acute Plan: Could have developed contrast nephropathy after CTA. Has suffered ATN. Patient has become dialysis dependent: HD done Sunday Ongoing azotemia 700cc UOP/24 hours. Monitor for renal recovery Monitor urine output. HD as needed - plan next HD Sunday. (2) Respiratory failure Code(s): J96.90 - Respiratory failure, unspecified, unspecified whether with hypoxia or hypercapnia Status: Acute Plan: resolved. (3) Obesity Code(s): E66.9 - Obesity, unspecified Status: Acute Qualifiers: Obesity classification: adult class 3 (BMI >= 40) Plan: patient has obesity-hypoventilation syndrome. (4) Pulmonary embolism Code(s): I26.99 - Other pulmonary embolism without acute cor pulmonale Status : Acute Plan: On Coumadin.
[2018-10-06] MEDS: Oral Hygiene Kit OROPHARYNG SCH ×3 (02:59→18:13)
[2018-10-06] MEDS: Levothyroxine 50 MCG Tablet PO SCH (05:13)
[2018-10-06 07:04] LABS: INR 1.7 Ratio; Prothrombin Time 17.1 sec (9.8-11.6)
[2018-10-06 07:05] LABS: Calcium 9.1 mg/dL (8.5-10.1); Carbon Dioxide 25.9 meq/L (21.0-32.0); Potassium 4.3 meq/L (3.5-5.1)
--- NOTE | 2018-10-06 08:00 | P.PN ---
Subjective Interval history: Follow-up for acute renal failure on dialysis, PE. The patient is awoken from her sleep. She reports making more urine output overnight, still in bedside commode, has not been measured. She believes she is urinating more frequently. Denies any dysuria. Denies any chest pain or shortness of breath. No other medical complaints at this time. Physical Exam Vital signs: Vital Signs 10/05/18 11:23 10/05/18 12:00 10/05/18 16:00 Temperature 98.1 F 97.6 F Pulse Rate 86 91 H Respiratory Rate 18 18 Blood Pressure 123/57 L 113/65 Pulse Oximetry 99 95 96 10/05/18 20:00 10/05/18 21:16 10/06/18 00:00 Temperature 97.8 F 98.1 F Pulse Rate 91 H 93 H Respiratory Rate 16 16 Blood Pressure 119/64 103/65 Pulse Oximetry 94 L 94 L 98 10/06/18 04:00 Temperature 97.3 F L Pulse Rate 93 H Respiratory Rate 17 Blood Pressure 99/52 L Pulse Oximetry 98 Intake & Output 10/05/18 10/06/18 10/06/18 18:59 06:59 18:59 Intake Total 720 / 720 720 / 720 Output Total 750 / 750 Balance -30 / -30 720 / 720 Intake: Oral 720 / 720 720 / 720 Output: Urine 750 / 750 Other: # Voids 1 2 # Bowel Movements 0 Narrative: GENERAL: Well-nourished, obese middle-aged female patient in [facility]. SKIN: Warm and dry. No rash. Right IJ Vas-Cath in place, no surrounding erythema/edema. HEENT: Normocephalic. Atraumatic. Pupils equal and round. Mucous membranes pink and moist. CARDIOVASCULAR: Regular rate and rhythm. No murmur appreciated. RESPIRATORY: No accessory muscle use. Breath sounds equal bilaterally. GASTROINTESTINAL: Abdomen soft, non-tender, nondistended. Normoactive bowel sounds x4. MUSCULOSKELETAL: No obvious deformities. Extremities without clubbing, cyanosis , or edema. NEUROLOGICAL: Awake and alert. No focal deficits. Moving all extremities spontaneously. Normal speech. - Urinary Catheter Management Indwelling Urethral Catheter Cath placed during this visit: yes, but has since been removed by the nurse Reason for continuing: Hourly intake/output Insertion date: 09/08/18 Insertion time: 22:52 Removal date: 09/17/18 Removal time: 09:10 Results - Labs CBC & Chem 7: 09/30/18 11:48 10/06/18 05:49 Laboratory Results - last 24 hr 10/05/18 10/05/18 10/05/18 06:56 12:36 19:30 PT 18.6 H INR 1.8 Sodium Potassium Chloride Carbon Dioxide Anion Gap BUN Creatinine Estimated GFR POC Glucose 125 H 151 H Random Glucose Calcium 10/06/18 10/06/18 05:49 05:49 PT 17.1 H INR 1.7 Sodium 136 Potassium 4.3 Chloride 99 Carbon Dioxide 25.9 Anion Gap 11 BUN 63 H Creatinine 5.15 H Estimated GFR 9 L POC Glucose Random Glucose 113 H Calcium 9.1 - Procedures 09/26/18right IJ Vas-Cath exchanged Assessment and Plan - Assessment (1) CHF (congestive heart failure) Code(s): I50.9 - Heart failure, unspecified Status: Acute (2) Cardiomyopathy Code(s): I42.9 - Cardiomyopathy, unspecified Status: Acute (3) Acute kidney failure Code(s): N17.9 - Acute kidney failure, unspecified Status: Acute (4) Respiratory failure Code(s): J96.90 - Respiratory failure, unspecified, unspecified whether with hypoxia or hypercapnia Status: Acute (5) Obesity Code(s): E66.9 - Obesity, unspecified Status: Acute - Plan 47-year-old female with a medical history significant for PE, respiratory failure, AK I on hemodialysis. Patient was initially brought by EMS due to respiratory failure and unresponsiveness. She underwent a trial of BiPAP but failed and was ultimately intubated and transferred to critical care. She was subsequently extubated during her hospital course, was found to have paroxysmal atrial fibrillation. Cardiology saw and evaluated the patient and was transitioned to Coumadin. Patient with renal failure and was started on hemodialysis by nephrology. Hospital course also complicated by PE. Respiratory failure Pulmonary embolism identified on CTA -Status post extubation on 09/16 -Pulmonology is following: on CPAP at night -Continue on coumadin -INR is subtherapeutic at 1.7 today, pharmacy is dosing and following -O2 sat currently stable on room air Acute renal failure, possibly due to contrast from CTA -Creatinine trended up to 10.41 -HD initiated on 09/12 -Patient has been dialysis dependent throughout admission without much renal recovery, continue to monitor -Nephrology following, appreciate assistance -10/06 creatinine continues to improve, currently creatinine 5.15, and patient making more urine -Continue to monitor BMP Community-acquired pneumonia, sepsis criteria on admission Patient is status post course of Zyvox -Blood culture, urine cultures, sputum culture negative to date Systolic heart failure -Status post milrinone on 09/13-09/18 to maintain cardiac index -Echo 09/09 was suboptimal due to patient habitus, left ventricular function appears severely reduced, global hypokinesis. -Cardiology following Hypertension -Was on Coreg, patient with intermittent low blood pressures and Coreg has been held -BP borderline low, worse after receiving dialysis, continue to monitor Diabetes type 2 -Accu-Cheks, sliding scale Hypothyroidism -Continue patient's Synthroid Peripheral neuropathy -Continue patient's Lyrica 75 mg twice daily UDS: +cocaine DVT prophylaxis: on Coumadin Palliative care is following Discharge Planning: Discharge to SNF when patient is stable and cleared by nephrology. Still unclear if patient will require long-term dialysis. Currently renal function showing some improvement. Awaiting final decision from nephrology. (5) Obesity Qualifiers: Obesity classification: adult class 3 (BMI >= 40)
[2018-10-06] MEDS: Pregabalin 25 MG Capsule PO SCH ×2 (10:23→20:36)
[2018-10-06] MEDS: Nystatin 100,000 UNITS/GM Powder 15 GM Bottle TOPICAL SCH ×2 (10:24→20:37)
[2018-10-06] MEDS: Senna/Docusate Sodium 8.6/50 MG Tablet PO SCH ×2 (10:24→20:36)
[2018-10-06] MEDS: Insulin NovoLIN Regular Correctional Sugar Inj SQ SCH ×4 (10:25→20:37)
[2018-10-06] MEDS: Chlorhexidine 0.12% Oral Kit 15 ML UDC OROPHARYNG SCH ×2 (10:25→20:35)
--- NOTE | 2018-10-06 17:13 | P.PNNP ---
Subjective Interval history: no acute complaints Physical Exam Vital signs: Vital Signs 10/05/18 20:00 10/05/18 21:16 10/06/18 00:00 Temperature 97.8 F 98.1 F Pulse Rate 91 H 93 H Respiratory Rate 16 16 Blood Pressure 119/64 103/65 Pulse Oximetry 94 L 94 L 98 10/06/18 04:00 10/06/18 08:00 10/06/18 12:00 Temperature 97.3 F L 98.9 F 98.8 F Pulse Rate 93 H 89 95 H Respiratory Rate 17 20 20 Blood Pressure 99/52 L 104/46 L 106/56 L Pulse Oximetry 98 99 99 10/06/18 13:13 Temperature Pulse Rate Respiratory Rate Blood Pressure Pulse Oximetry 99 Intake & Output 10/05/18 10/06/18 10/06/18 18:59 06:59 18:59 Intake Total 720 / 720 720 / 720 Output Total 750 / 750 Balance -30 / -30 720 / 720 Intake: Oral 720 / 720 720 / 720 Output: Urine 750 / 750 Other: # Voids 1 2 # Bowel Movements 0 - Constitutional no acute distress - Routine HEENT Exam Head: Present: normocephalic Eye: Present: EOMI ENT: Present: mucous membranes moist - Routine Neck Exam Present: supple - Routine Respiratory Exam Present: decreased breath sounds - Routine Cardiovascular Exam Present: RRR - Routine Abdominal Exam Present: soft - Routine Skin Exam Present: intact - Routine Neurological Exam Present: alert - Urinary Catheter Management Indwelling Urethral Catheter Cath placed during this visit: yes, but has since been removed by the nurse Reason for continuing: Hourly intake/output Insertion date: 09/08/18 Insertion time: 22:52 Removal date: 09/17/18 Removal time: 09:10 Assessment and Plan - Assessment (1) Acute kidney failure Code(s): N17.9 - Acute kidney failure, unspecified Status: Acute Plan: Could have developed contrast nephropathy after CTA. Has suffered ATN. Patient has become dialysis dependent: HD done Sunday Ongoing azotemia 750cc UOP/24 hours. Monitor for renal recovery Monitor urine output. HD as needed - plan for next HD Sunday. (2) Respiratory failure Code(s): J96.90 - Respiratory failure, unspecified, unspecified whether with hypoxia or hypercapnia Status: Acute Plan: resolved. (3) Obesity Code(s): E66.9 - Obesity, unspecified Status: Acute Qualifiers: Obesity classification: adult class 3 (BMI >= 40) Plan: patient has obesity-hypoventilation syndrome. (4) Pulmonary embolism Code(s): I26.99 - Other pulmonary embolism without acute cor pulmonale Status : Acute Plan: On Coumadin.
[2018-10-07] MEDS: Oral Hygiene Kit OROPHARYNG SCH ×4 (00:19→16:52)
[2018-10-07] MEDS: Levothyroxine 50 MCG Tablet PO SCH (05:03)
[2018-10-07] MEDS: Insulin NovoLIN Regular Correctional Sugar Inj SQ SCH ×4 (07:55→21:01)
[2018-10-07 08:45] LABS: Hematocrit 33.6 % (35.0-46.0); Hemoglobin 10.8 gm/dL (11.6-15.3); Mean Corpuscular Hemoglobin 26.3 pg (27.0-34.0); Mean Corpuscular Volume 82.1 fL (80.0-100.0); Mean Platelet Volume 8.3 fL (7.0-11.0); Platelet Count 307 th/mm3 (150-450); White Blood Count 6.7 th/mm3 (4.0-11.0)
[2018-10-07 08:56] LABS: INR 1.5 Ratio; Prothrombin Time 15.5 sec (9.8-11.6)
[2018-10-07] MEDS: Pregabalin 25 MG Capsule PO SCH ×2 (08:58→21:00)
[2018-10-07] MEDS: Senna/Docusate Sodium 8.6/50 MG Tablet PO SCH ×2 (08:58→21:00)
[2018-10-07 09:37] LABS: Alanine Aminotransferase 21 U/L (10-53); Albumin 3.3 g/dL (3.4-5.0); Alkaline Phosphatase 87 U/L (45-117); Anion Gap 9 meq/L (5-15); Aspartate Aminotransferase 19 U/L (15-37); Blood Urea Nitrogen 75 mg/dL (7-18); Calcium 9.5 mg/dL (8.5-10.1); Carbon Dioxide 26.3 meq/L (21.0-32.0); Chloride 102 meq/L (98-107); Glomerular Filtration Rate 10 mL/min (>89); Glucose,Random 107 mg/dL (74-106); Potassium 4.4 meq/L (3.5-5.1); Sodium 137 meq/L (136-145); Total Protein 7.9 g/dL (6.4-8.2)
--- NOTE | 2018-10-07 09:53 | P.PNNP ---
Subjective Interval history: More than 1 liter of urine. Creatinine is better today. Will stop dialysis support. Physical Exam Vital signs: Vital Signs 10/06/18 12:00 10/06/18 13:13 10/06/18 16:00 Temperature 98.8 F 97.6 F Pulse Rate 95 H 97 H Respiratory Rate 20 20 Blood Pressure 106/56 L 110/53 L Pulse Oximetry 99 99 100 10/06/18 20:00 10/07/18 00:00 10/07/18 04:00 Temperature 97.2 F L 98.4 F 97.2 F L Pulse Rate 101 H 93 H 94 H Respiratory Rate 17 18 18 Blood Pressure 108/73 114/56 L 98/51 L Pulse Oximetry 98 100 985 H 10/07/18 09:29 Temperature Pulse Rate Respiratory Rate Blood Pressure Pulse Oximetry 93 L Intake & Output 10/06/18 10/07/18 10/07/18 18:59 06:59 18:59 Intake Total 460 / 460 720 / 720 Output Total 1050 / 1050 Balance 460 / 460 -330 / -330 Weight 162.3 kg Intake: Oral 460 / 460 720 / 720 Output: Urine 1050 / 1050 Other: # Voids 4 # Bowel Movements 0 Narrative: GENERAL: Well-nourished, obese middle-aged female patient in [facility]. SKIN: Warm and dry. No rash. Right IJ Vas-Cath in place, no surrounding erythema/edema. HEENT: Normocephalic. Atraumatic. Pupils equal and round. Mucous membranes pink and moist. CARDIOVASCULAR: Regular rate and rhythm. No murmur appreciated. RESPIRATORY: No accessory muscle use. Breath sounds equal bilaterally. GASTROINTESTINAL: Abdomen soft, non-tender, nondistended. Normoactive bowel sounds x4. MUSCULOSKELETAL: No obvious deformities. Extremities without clubbing, cyanosis , or edema. NEUROLOGICAL: Awake and alert. No focal deficits. Moving all extremities spontaneously. Normal speech. - Urinary Catheter Management Indwelling Urethral Catheter Cath placed during this visit: yes, but has since been removed by the nurse Reason for continuing: Hourly intake/output Insertion date: 09/08/18 Insertion time: 22:52 Removal date: 09/17/18 Removal time: 09:10 Assessment and Plan - Assessment (1) Acute kidney failure Code(s): N17.9 - Acute kidney failure, unspecified Status: Acute Plan: Could have developed contrast nephropathy after CTA. Has suffered ATN. Required dialysis for a prolonged period of time, but urine output has improved , creatinine is better. Stop dialysis today. Repeat labs tomorrow. Monitor for renal recovery Monitor urine output. HD as needed. (2) Respiratory failure Code(s): J96.90 - Respiratory failure, unspecified, unspecified whether with hypoxia or hypercapnia Status: Acute Plan: resolved. (3) Obesity Code(s): E66.9 - Obesity, unspecified Status: Acute Qualifiers: Obesity classification: adult class 3 (BMI >= 40) Plan: patient has obesity-hypoventilation syndrome. (4) Pulmonary embolism Code(s): I26.99 - Other pulmonary embolism without acute cor pulmonale Status : Acute Plan: On Coumadin.
[2018-10-07] MEDS: Chlorhexidine 0.12% Oral Kit 15 ML UDC OROPHARYNG SCH ×2 (10:07→20:58)
--- NOTE | 2018-10-07 10:41 | P.PN ---
Subjective Interval history: Follow-up visit for acute renal failure requiring HD and PE. Nurse does not report any acute events overnight or this morning. Patient is scheduled for hemodialysis today, also reports she was able to urinate 600 mL's of urine this morning. She denies any fevers, chills, nausea, vomiting, diarrhea. Does endorse occasional constipation and is taking her stool softener. Physical Exam Vital signs: Vital Signs 10/06/18 12:00 10/06/18 13:13 10/06/18 16:00 Temperature 98.8 F 97.6 F Pulse Rate 95 H 97 H Respiratory Rate 20 20 Blood Pressure 106/56 L 110/53 L Pulse Oximetry 99 99 100 10/06/18 20:00 10/07/18 00:00 10/07/18 04:00 Temperature 97.2 F L 98.4 F 97.2 F L Pulse Rate 101 H 93 H 94 H Respiratory Rate 17 18 18 Blood Pressure 108/73 114/56 L 98/51 L Pulse Oximetry 98 100 985 H 10/07/18 08:00 10/07/18 09:29 Temperature Pulse Rate 94 H Respiratory Rate 18 Blood Pressure Pulse Oximetry 93 L Intake & Output 10/06/18 10/07/18 10/07/18 18:59 06:59 18:59 Intake Total 460 / 460 720 / 720 Output Total 1050 / 1050 Balance 460 / 460 -330 / -330 Weight 162.3 kg Intake: Oral 460 / 460 720 / 720 Output: Urine 1050 / 1050 Other: # Voids 4 # Bowel Movements 0 Narrative: GENERAL: Well-nourished, obese middle-aged female patient in [facility]. SKIN: Warm and dry. No rash. Right jugular Vas-Cath, dry and intact dressing. HEENT: Normocephalic. Atraumatic. Pupils equal and round. Mucous membranes pink and moist. CARDIOVASCULAR: Regular rate and rhythm. No murmur appreciated. RESPIRATORY: No accessory muscle use. Breath sounds equal bilaterally. GASTROINTESTINAL: Abdomen soft, non-tender, nondistended. Normoactive bowel sounds x4. MUSCULOSKELETAL: No obvious deformities. Extremities without clubbing, cyanosis , or edema. NEUROLOGICAL: Awake and alert. No focal deficits. Moving all extremities spontaneously. Normal speech. - Urinary Catheter Management Indwelling Urethral Catheter Cath placed during this visit: yes, but has since been removed by the nurse Reason for continuing: Hourly intake/output Insertion date: 09/08/18 Insertion time: 22:52 Removal date: 09/17/18 Removal time: 09:10 Results - Labs CBC & Chem 7: 10/07/18 06:13 10/07/18 06:13 Laboratory Results - last 24 hr 10/06/18 10/06/18 10/07/18 13:06 19:34 06:13 WBC RBC Hgb Hct MCV MCH MCHC RDW Plt Count MPV PT 15.5 H INR 1.5 Sodium Potassium Chloride Carbon Dioxide Anion Gap BUN Creatinine Estimated GFR POC Glucose 109 145 H Random Glucose Calcium Total Bilirubin AST ALT Alkaline Phosphatase Total Protein Albumin 10/07/18 10/07/18 10/07/18 06:13 06:13 07:54 WBC 6.7 RBC 4.10 Hgb 10.8 L Hct 33.6 L MCV 82.1 MCH 26.3 L MCHC 32.0 RDW 17.0 Plt Count 307 MPV 8.3 PT INR Sodium 137 Potassium 4.4 Chloride 102 Carbon Dioxide 26.3 Anion Gap 9 BUN 75 H Creatinine 4.77 H Estimated GFR 10 L POC Glucose 143 H Random Glucose 107 H Calcium 9.5 Total Bilirubin 0.2 AST 19 ALT 21 Alkaline Phosphatase 87 Total Protein 7.9 Albumin 3.3 L - Procedures 09/26/18right IJ Vas-Cath exchanged Assessment and Plan - Assessment (1) CHF (congestive heart failure) Code(s): I50.9 - Heart failure, unspecified Status: Acute (2) Cardiomyopathy Code(s): I42.9 - Cardiomyopathy, unspecified Status: Acute (3) Acute kidney failure Code(s): N17.9 - Acute kidney failure, unspecified Status: Acute (4) Respiratory failure Code(s): J96.90 - Respiratory failure, unspecified, unspecified whether with hypoxia or hypercapnia Status: Acute (5) Obesity Code(s): E66.9 - Obesity, unspecified Status: Acute - Plan 7-year-old female with a medical history significant for PE, respiratory failure , [place] on hemodialysis. Patient was initially brought by EMS due to respiratory failure and unresponsiveness. She underwent a trial of BiPAP but failed and was ultimately intubated and transferred to critical care. She was subsequently extubated during her hospital course, was found to have paroxysmal atrial fibrillation. Cardiology saw and evaluated the patient and was transitioned to Coumadin. Patient with renal failure and was started on hemodialysis by nephrology. Hospital course also complicated by PE. Respiratory failure Pulmonary embolism identified on CTA -Status post extubation on 09/16 -Pulmonology is following: on CPAP at night -Continue on coumadin -INR is subtherapeutic at 1.5 today, pharmacy is dosing. Give additional 2mg in anticipation for likely DC tomorrow. Recheck INR in the a.m. -O2 sat currently stable on room air Acute renal failure, possibly due to contrast from CTA -Creatinine trended up to 10.41 -HD initiated on 09/12 -Patient has been dialysis dependent throughout admission. -Nephrology following, appreciate assistance -Renal function continues to improve, nephrology stopping HD support with followup BMP in a.m. - Urine output improving. Community-acquired pneumonia, sepsis criteria on admission Patient is status post course of Zyvox -Blood culture, urine cultures, sputum culture negative to date Systolic heart failure -Status post milrinone on 09/13-09/18 to maintain cardiac index -Echo 09/09 was suboptimal due to patient habitus, left ventricular function appears severely reduced, global hypokinesis. -Cardiology following Hypertension -Was on Coreg, patient with intermittent low blood pressures and Coreg has been held -BP fluctuates, continue to monitor Diabetes type 2 -Accu-Cheks, sliding scale Hypothyroidism -Continue patient's Synthroid Peripheral neuropathy -Continue patient's Lyrica 75 mg twice daily UDS: +cocaine DVT prophylaxis: on Coumadin Palliative care is following Discussed Condition With: Patient, RN and CM Discharge Planning: DC to SNF once cleared by nephrology, pending BMP in the a.m. (5) Obesity Qualifiers: Obesity classification: adult class 3 (BMI >= 40)
[2018-10-07] MEDS: Heparin 10,000 UNITS/10 ML Vial (for IV use) OTHER PRN (11:35)
[2018-10-07] MEDS: Nystatin 100,000 UNITS/GM Powder 15 GM Bottle TOPICAL SCH ×2 (13:26→21:01)
--- NOTE | 2018-10-07 19:28 | P.PN ---
Subjective Interval history: She feels better. Off Dialysis and only on diuretic. Using CPAP at HS Physical Exam Vital signs: Vital Signs 10/06/18 20:00 10/07/18 00:00 10/07/18 04:00 Temperature 97.2 F L 98.4 F 97.2 F L Pulse Rate 101 H 93 H 94 H Respiratory Rate 17 18 18 Blood Pressure 108/73 114/56 L 98/51 L Pulse Oximetry 98 100 985 H 10/07/18 08:00 10/07/18 09:29 10/07/18 12:00 Temperature 97.5 F L Pulse Rate 97 H 95 H Respiratory Rate 20 Blood Pressure 149/64 H Pulse Oximetry 98 93 L 10/07/18 13:17 10/07/18 16:00 Temperature 97.8 F Pulse Rate 97 H Respiratory Rate 20 20 Blood Pressure 118/64 Pulse Oximetry 97 Intake & Output 10/07/18 10/07/18 10/08/18 06:59 18:59 06:59 Intake Total 720 / 720 720 / 720 Output Total 1050 / 1050 901 / 901 Balance -330 / -330 -181 / -181 Weight 162.3 kg Intake: Oral 720 / 720 720 / 720 Output: Urine 1050 / 1050 900 / 900 Hemodialysis Amount Other: Date of Last Bowel Movement 10/02/18 # Bowel Movements 0 Narrative: GENERAL: Well-nourished, obese middle-aged female patient in [facility]. SKIN: Warm and dry. No rash. Right jugular Vas-Cath, dry and intact dressing. HEENT: Normocephalic. Atraumatic. Pupils equal and round. Mucous membranes pink and moist. CARDIOVASCULAR: Regular rate and rhythm. No murmur appreciated. RESPIRATORY: No accessory muscle use. Occ Crackles +. Breath sounds equal bilaterally. GASTROINTESTINAL: Abdomen soft, non-tender, nondistended. Normoactive bowel sounds x4. MUSCULOSKELETAL: No obvious deformities. Extremities without clubbing, cyanosis , or edema. NEUROLOGICAL: Awake and alert. No focal deficits. Moving all extremities spontaneously. Normal speech. - Urinary Catheter Management Indwelling Urethral Catheter Cath placed during this visit: yes, but has since been removed by the nurse Reason for continuing: Hourly intake/output Insertion date: 09/08/18 Insertion time: 22:52 Removal date: 09/17/18 Removal time: 09:10 Results - Labs CBC & Chem 7: 10/07/18 06:13 10/07/18 06:13 Laboratory Results - last 24 hr 10/06/18 10/07/18 10/07/18 19:34 06:13 06:13 WBC 6.7 RBC 4.10 Hgb 10.8 L Hct 33.6 L MCV 82.1 MCH 26.3 L MCHC 32.0 RDW 17.0 Plt Count 307 MPV 8.3 PT 15.5 H INR 1.5 Sodium Potassium Chloride Carbon Dioxide Anion Gap BUN Creatinine Estimated GFR POC Glucose 145 H Random Glucose Calcium Total Bilirubin AST ALT Alkaline Phosphatase Total Protein Albumin 10/07/18 10/07/18 10/07/18 06:13 07:54 11:43 WBC RBC Hgb Hct MCV MCH MCHC RDW Plt Count MPV PT INR Sodium 137 Potassium 4.4 Chloride 102 Carbon Dioxide 26.3 Anion Gap 9 BUN 75 H Creatinine 4.77 H Estimated GFR 10 L POC Glucose 143 H 117 H Random Glucose 107 H Calcium 9.5 Total Bilirubin 0.2 AST 19 ALT 21 Alkaline Phosphatase 87 Total Protein 7.9 Albumin 3.3 L 10/07/18 16:48 WBC RBC Hgb Hct MCV MCH MCHC RDW Plt Count MPV PT INR Sodium Potassium Chloride Carbon Dioxide Anion Gap BUN Creatinine Estimated GFR POC Glucose 137 H Random Glucose Calcium Total Bilirubin AST ALT Alkaline Phosphatase Total Protein Albumin - Procedures 09/26/18right IJ Vas-Cath exchanged Assessment and Plan - Assessment (1) Sleep apnea treated with nocturnal BiPAP Code(s): G47.30 - Sleep apnea, unspecified Status: Acute (2) Pneumonia Code(s): J18.9 - Pneumonia, unspecified organism Status: Acute (3) Acute kidney failure Code(s): N17.9 - Acute kidney failure, unspecified Status: Acute (4) Respiratory failure Code(s): J96.90 - Respiratory failure, unspecified, unspecified whether with hypoxia or hypercapnia Status: Acute (5) Obesity Code(s): E66.9 - Obesity, unspecified Status: Acute (6) Pulmonary embolism Code(s): I26.99 - Other pulmonary embolism without acute cor pulmonale Status : Acute (7) Chronic pain Code(s): G89.29 - Other chronic pain Status: Acute (8) Dyspnea Code(s): R06.00 - Dyspnea, unspecified Status: Acute (9) Debility Code(s): R53.81 - Other malaise Status: Acute (10) CHF (congestive heart failure) Code(s): I50.9 - Heart failure, unspecified Status: Acute - Plan 1. D/C O2 2. IS Q3h bedside 3. D/C nebs 4. Continue CPAP at HS daily 5. Rehab placement 6. Continue PT and OT 7. Continue anticoagulants . 8. Albuterol HFA, 2 puffs TID PRN (5) Obesity Qualifiers: Obesity classification: adult class 3 (BMI >= 40)
[2018-10-08] MEDS: Oral Hygiene Kit OROPHARYNG SCH ×4 (00:32→15:28)
[2018-10-08] MEDS: Levothyroxine 50 MCG Tablet PO SCH (05:16)
[2018-10-08 07:00] LABS: Hematocrit 33.4 % (35.0-46.0); Hemoglobin 10.4 gm/dL (11.6-15.3); Mean Corpuscular HGB Conc 31.3 % (32.0-36.0); Mean Corpuscular Volume 83.1 fL (80.0-100.0); Mean Platelet Volume 8.1 fL (7.0-11.0); Platelet Count 282 th/mm3 (150-450); Red Blood Count 4.01 mil/mm3 (4.00-5.30); Red Cell Distribution Width 16.4 % (11.6-17.2)
[2018-10-08 07:10] LABS: INR 1.8 Ratio; Prothrombin Time 18.7 sec (9.8-11.6)
[2018-10-08 07:39] LABS: Alanine Aminotransferase 22 U/L (10-53); Albumin 3.1 g/dL (3.4-5.0); Alkaline Phosphatase 78 U/L (45-117); Anion Gap 7 meq/L (5-15); Aspartate Aminotransferase 17 U/L (15-37); Blood Urea Nitrogen 52 mg/dL (7-18); Calcium 9.5 mg/dL (8.5-10.1); Carbon Dioxide 29.3 meq/L (21.0-32.0); Chloride 103 meq/L (98-107); Glomerular Filtration Rate 14 mL/min (>89); Glucose,Random 101 mg/dL (74-106); Phosphorus 4.2 mg/dL (2.5-4.9); Potassium 4.5 meq/L (3.5-5.1); Sodium 139 meq/L (136-145); Total Protein 7.5 g/dL (6.4-8.2)
[2018-10-08] MEDS: Senna/Docusate Sodium 8.6/50 MG Tablet PO SCH ×2 (08:43→22:10)
[2018-10-08] MEDS: Pregabalin 25 MG Capsule PO SCH ×2 (08:43→22:09)
[2018-10-08] MEDS: Chlorhexidine 0.12% Oral Kit 15 ML UDC OROPHARYNG SCH ×2 (08:47→22:09)
[2018-10-08] MEDS: Nystatin 100,000 UNITS/GM Powder 15 GM Bottle TOPICAL SCH ×2 (08:47→22:10)
[2018-10-08] MEDS: Insulin NovoLIN Regular Correctional Sugar Inj SQ SCH ×4 (08:47→22:10)
--- NOTE | 2018-10-08 10:10 | P.PNNP ---
Subjective Interval history: Non oliguric. Creatinine is better, but she had 2 hours of dialysis yesterday. If BUN/Creatinine are stable tomorrow, patient can be discharged from renal standpoint. I have stopped Sevelamer. Physical Exam Vital signs: Vital Signs 10/07/18 12:00 10/07/18 13:17 10/07/18 16:00 Temperature 97.8 F Pulse Rate 95 H 97 H Respiratory Rate 20 20 Blood Pressure 118/64 Pulse Oximetry 97 10/07/18 20:00 10/08/18 00:00 10/08/18 04:00 Temperature 97.8 F 97.8 F 97.9 F Pulse Rate 101 H 97 H 95 H Respiratory Rate 17 17 20 Blood Pressure 130/74 131/72 97/58 L Pulse Oximetry 98 94 L 98 10/08/18 08:00 Temperature 97.1 F L Pulse Rate 93 H Respiratory Rate 13 Blood Pressure 144/55 H Pulse Oximetry 98 Intake & Output 10/07/18 10/08/18 10/08/18 18:59 06:59 18:59 Intake Total 720 / 720 Output Total 901 / 901 Balance -181 / -181 Weight 162.6 kg Intake: Oral 720 / 720 Output: Urine 900 / 900 Hemodialysis Amount Other: Date of Last Bowel Movement 10/02/18 10/02/18 # Bowel Movements 0 Narrative: GENERAL: Well-nourished, obese middle-aged female patient in [facility]. SKIN: Warm and dry. No rash. Right jugular Vas-Cath, dry and intact dressing. HEENT: Normocephalic. Atraumatic. Pupils equal and round. Mucous membranes pink and moist. CARDIOVASCULAR: Regular rate and rhythm. No murmur appreciated. RESPIRATORY: CTA GASTROINTESTINAL: Abdomen soft, non-tender, nondistended. Normoactive bowel sounds x4. MUSCULOSKELETAL: No obvious deformities. Extremities without clubbing, cyanosis , or edema. NEUROLOGICAL: moves all extremities. - Urinary Catheter Management Indwelling Urethral Catheter Cath placed during this visit: yes, but has since been removed by the nurse Reason for continuing: Hourly intake/output Insertion date: 09/08/18 Insertion time: 22:52 Removal date: 09/17/18 Removal time: 09:10 Assessment and Plan - Assessment (1) Acute kidney failure Code(s): N17.9 - Acute kidney failure, unspecified Status: Acute Plan: Could have developed contrast nephropathy after CTA. Has suffered ATN. Required dialysis for a prolonged period of time, but urine output has improved , repeat labs tomorrow. Hopefully will not require further dialysis. VasCath can be removed before discharge tomorrow. Monitor urine output. Avoid nephrotoxic agents. (2) Respiratory failure Code(s): J96.90 - Respiratory failure, unspecified, unspecified whether with hypoxia or hypercapnia Status: Acute Plan: resolved. (3) Obesity Code(s): E66.9 - Obesity, unspecified Status: Acute Qualifiers: Obesity classification: adult class 3 (BMI >= 40) Plan: patient has obesity-hypoventilation syndrome. (4) Pulmonary embolism Code(s): I26.99 - Other pulmonary embolism without acute cor pulmonale Status : Acute Plan: On Coumadin.
--- NOTE | 2018-10-08 10:29 | P.PN ---
Subjective Interval history: Follow-up visit for acute renal failure and PE. Patient seen and examined resting in bed comfortably in no acute distress. Nurse does not report any acute events overnight or this morning. Continues to report that she is voiding without any issues. Discussed possible plans for discharge today pending nephrology clearance. Patient states she would like to be discharged to [facility] [place]. Physical Exam Vital signs: Vital Signs 10/07/18 12:00 10/07/18 13:17 10/07/18 16:00 Temperature 97.8 F Pulse Rate 95 H 97 H Respiratory Rate 20 20 Blood Pressure 118/64 Pulse Oximetry 97 10/07/18 20:00 10/08/18 00:00 10/08/18 04:00 Temperature 97.8 F 97.8 F 97.9 F Pulse Rate 101 H 97 H 95 H Respiratory Rate 17 17 20 Blood Pressure 130/74 131/72 97/58 L Pulse Oximetry 98 94 L 98 10/08/18 08:00 10/08/18 10:17 Temperature 97.1 F L Pulse Rate 93 H Respiratory Rate 13 Blood Pressure 144/55 H Pulse Oximetry 98 97 Intake & Output 10/07/18 10/08/18 10/08/18 18:59 06:59 18:59 Intake Total 720 / 720 Output Total 901 / 901 Balance -181 / -181 Weight 162.6 kg Intake: Oral 720 / 720 Output: Urine 900 / 900 Hemodialysis Amount Other: Date of Last Bowel Movement 10/02/18 10/02/18 # Bowel Movements 0 Narrative: GENERAL: Well-nourished, obese middle-aged female patient in [facility]. SKIN: Warm and dry. No rash. Right jugular Vas-Cath, dry and intact dressing. HEENT: Normocephalic. Atraumatic. Pupils equal and round. Mucous membranes pink and moist. CARDIOVASCULAR: Regular rate and rhythm. No murmur appreciated. RESPIRATORY: No accessory muscle use. Breath sounds equal bilaterally. GASTROINTESTINAL: Abdomen soft, non-tender, nondistended. Normoactive bowel sounds x4. MUSCULOSKELETAL: No obvious deformities. Extremities without clubbing, cyanosis , or edema. NEUROLOGICAL: Awake and alert. No focal deficits. Moving all extremities spontaneously. Normal speech. - Urinary Catheter Management Indwelling Urethral Catheter Cath placed during this visit: yes, but has since been removed by the nurse Reason for continuing: Hourly intake/output Insertion date: 09/08/18 Insertion time: 22:52 Removal date: 09/17/18 Removal time: 09:10 Results - Labs CBC & Chem 7: 10/08/18 05:30 10/08/18 05:30 Laboratory Results - last 24 hr 10/07/18 10/07/18 10/07/18 11:43 16:48 20:06 WBC RBC Hgb Hct MCV MCH MCHC RDW Plt Count MPV PT INR Sodium Potassium Chloride Carbon Dioxide Anion Gap BUN Creatinine Estimated GFR POC Glucose 117 H 137 H 155 H Random Glucose Calcium Phosphorus Total Bilirubin AST ALT Alkaline Phosphatase Total Protein Albumin 10/08/18 10/08/18 10/08/18 05:30 05:30 05:30 WBC 5.0 RBC 4.01 Hgb 10.4 L Hct 33.4 L MCV 83.1 MCH 26.0 L MCHC 31.3 L RDW 16.4 Plt Count 282 MPV 8.1 PT 18.7 H INR 1.8 Sodium 139 Potassium 4.5 Chloride 103 Carbon Dioxide 29.3 Anion Gap 7 BUN 52 H Creatinine 3.45 H Estimated GFR 14 L POC Glucose Random Glucose 101 Calcium 9.5 Phosphorus 4.2 Total Bilirubin 0.3 AST 17 ALT 22 Alkaline Phosphatase 78 Total Protein 7.5 Albumin 3.1 L 10/08/18 08:41 WBC RBC Hgb Hct MCV MCH MCHC RDW Plt Count MPV PT INR Sodium Potassium Chloride Carbon Dioxide Anion Gap BUN Creatinine Estimated GFR POC Glucose 122 H Random Glucose Calcium Phosphorus Total Bilirubin AST ALT Alkaline Phosphatase Total Protein Albumin - Procedures 09/26/18right IJ Vas-Cath exchanged Assessment and Plan - Assessment (1) CHF (congestive heart failure) Code(s): I50.9 - Heart failure, unspecified Status: Acute (2) Cardiomyopathy Code(s): I42.9 - Cardiomyopathy, unspecified Status: Acute (3) Acute kidney failure Code(s): N17.9 - Acute kidney failure, unspecified Status: Acute (4) Respiratory failure Code(s): J96.90 - Respiratory failure, unspecified, unspecified whether with hypoxia or hypercapnia Status: Acute (5) Obesity Code(s): E66.9 - Obesity, unspecified Status: Acute - Plan 7-year-old female with a medical history significant for PE, respiratory failure , [place] on hemodialysis. Patient was initially brought by EMS due to respiratory failure and unresponsiveness. She underwent a trial of BiPAP but failed and was ultimately intubated and transferred to critical care. She was subsequently extubated during her hospital course, was found to have paroxysmal atrial fibrillation. Cardiology saw and evaluated the patient and was transitioned to Coumadin. Patient with renal failure and was started on hemodialysis by nephrology. Hospital course also complicated by PE. Respiratory failure Pulmonary embolism identified on CTA -Status post extubation on 09/16 -Pulmonology is following: on CPAP at night -Continue on coumadin -INR improving 1.8 today, pharmacy is dosing. Daily INRs -O2 sat currently stable on room air Acute renal failure, possibly due to contrast from CTA -Creatinine trended up to 10.41 -HD initiated on 09/12 last HD 10/07 -Nephrology following, appreciate assistance -Renal function continues to improve, nephrology stopping HD support with followup BMP in a.m. - Urine output improving. - Possible DC tomorrow depending on labs in the a.m. Community-acquired pneumonia, sepsis criteria on admission Patient is status post course of Zyvox -Blood culture, urine cultures, sputum culture negative to date Systolic heart failure -Status post milrinone on 09/13-09/18 to maintain cardiac index -Echo 09/09 was suboptimal due to patient habitus, left ventricular function appears severely reduced, global hypokinesis. -Cardiology evaluated during her stay Hypertension -Was on Coreg, patient with intermittent low blood pressures and Coreg has been held -BP fluctuates, continue to monitor Diabetes type 2 -Accu-Cheks, sliding scale Hypothyroidism -Continue patient's Synthroid Peripheral neuropathy -Continue patient's Lyrica 75 mg twice daily UDS: +cocaine DVT prophylaxis: on Coumadin Palliative care is following Discussed Condition With: Patient and production support engineer Planning: DC to SNF once cleared by nephrology, pending BMP in the a.m. (5) Obesity Qualifiers: Obesity classification: adult class 3 (BMI >= 40)
--- NOTE | 2018-10-08 11:53 | P.PNPAL ---
Reason for Visit Reason for visit: a. To assist with evaluation and management of symptoms including: dyspnea, pain, debility. b. To assist medical decision maker(s) with: better understanding of current medical conditions; weighing benefits/burdens of medical treatment options; making medical treatment decisions. Subjective Subjective/Interval History: Follow-up medically necessary for symptom management and patient support. Patient seen and examined in her room. She is sitting up in a recliner, sleeping. Easily arouses but very sleepy. Patient denies pain and shortness of breath. Patient reporting that she has been voiding adequate amount of urine. Vital signs stable. Patient has been ambulating in the room with a walker with no assistance. Patient's last hemodialysis was on 10/05/18. Laboratory workup 10/08/18 revealing sodium 139, potassium 4.5, BUN/creatinine 52/3.45, calcium 9.5, total protein 7.5, albumin 3.1. Patient's creatinine has significantly improved. Per nephrology notes on 10/08/18 patient may be discharged from renal standpoint tomorrow if BUN and creatinine remains stable. Patient is hopeful that he had kidney function remained stable and that she will not need long-term hemodialysis. Patient is looking forward to going to rehabilitation. trade recruiter notes reviewed, patient has been accepted to [facility] and rehab. Goals remain aggressive. . Family/Friend Interactions: No family at bedside. . Advance Directives Living Will: Never completed Health Care Surrogate: Copy in medical record Durable Power of Supervisor Rides: Never completed Health Care Surrogate [facility] daughter: [phone] Documented care wishes:: No Living Will. Completed designation of health care surrogate on 09/16/18 naming her daughter Avelina Hadley as [facility]. . Objective Vital Signs: Vital Signs 10/07/18 12:00 10/07/18 13:17 10/07/18 16:00 Temperature 97.8 F Pulse Rate 95 H 97 H Respiratory Rate 20 20 Blood Pressure 118/64 Pulse Oximetry 97 10/07/18 20:00 10/08/18 00:00 10/08/18 04:00 Temperature 97.8 F 97.8 F 97.9 F Pulse Rate 101 H 97 H 95 H Respiratory Rate 17 17 20 Blood Pressure 130/74 131/72 97/58 L Pulse Oximetry 98 94 L 98 10/08/18 08:00 10/08/18 10:17 Temperature 97.1 F L Pulse Rate 93 H Respiratory Rate 18 Blood Pressure 144/55 H Pulse Oximetry 98 97 Intake & Output 10/07/18 10/08/18 10/08/18 18:59 06:59 18:59 Intake Total 720 / 720 Output Total 901 / 901 Balance -181 / -181 Weight 162.6 kg Intake: Oral 720 / 720 Output: Urine 900 / 900 Hemodialysis Amount Other: Date of Last Bowel Movement 10/02/18 10/02/18 10/02/18 # Bowel Movements 0 Physical Exam: CONSTITUTIONAL/GENERAL: This is an overweight female, sitting up in a chair in no acute distress. TUBES/LINES/DRAINS: vas-cath, PIV. Bariatric bed. SKIN: No jaundice, rashes, or lesions. Ecchymoses on upper extremities. No wounds seen anteriorly. Normothermic. EYES: pupils equal and reactive. ENT: hearing adequate. Nose without bleeding or purulent drainage. Dry oral mucosa. CARDIOVASCULAR: Distant heart sounds. S1, S2 normal. No JVD. RESPIRATORY/CHEST: Mildly labored respirations. Clear breath sounds. Remains on room air. GASTROINTESTINAL: Abdomen protuberant, soft, nondistended. No guarding. Positive bowel sounds GENITOURINARY: Without palpable bladder distension. MUSCULOSKELETAL: Bilateral lower extremities with edema. NEUROLOGICAL: Sleeping in a recliner, easily arousable. oriented to self, place and situation. Follows commands. Speech clear. PSYCHIATRIC: Calm. Diagnostic Tests Laboratory: Laboratory Results - last 72 hr 10/05/18 10/05/18 10/06/18 12:36 19:30 05:49 WBC RBC Hgb Hct MCV MCH MCHC RDW Plt Count MPV PT 17.1 H INR 1.7 Sodium Potassium Chloride Carbon Dioxide Anion Gap BUN Creatinine Estimated GFR POC Glucose 125 H 151 H Random Glucose Calcium Phosphorus Total Bilirubin AST ALT Alkaline Phosphatase Total Protein Albumin 10/06/18 10/06/18 10/06/18 05:49 13:06 19:34 WBC RBC Hgb Hct MCV MCH MCHC RDW Plt Count MPV PT INR Sodium 136 Potassium 4.3 Chloride 99 Carbon Dioxide 25.9 Anion Gap 11 BUN 63 H Creatinine 5.15 H Estimated GFR 9 L POC Glucose 109 145 H Random Glucose 113 H Calcium 9.1 Phosphorus Total Bilirubin AST ALT Alkaline Phosphatase Total Protein Albumin 10/07/18 10/07/18 10/07/18 06:13 06:13 06:13 WBC 6.7 RBC 4.10 Hgb 10.8 L Hct 33.6 L MCV 82.1 MCH 26.3 L MCHC 32.0 RDW 17.0 Plt Count 307 MPV 8.3 PT 15.5 H INR 1.5 Sodium 137 Potassium 4.4 Chloride 102 Carbon Dioxide 26.3 Anion Gap 9 BUN 75 H Creatinine 4.77 H Estimated GFR 10 L POC Glucose Random Glucose 107 H Calcium 9.5 Phosphorus Total Bilirubin 0.2 AST 19 ALT 21 Alkaline Phosphatase 87 Total Protein 7.9 Albumin 3.3 L 10/07/18 10/07/18 10/07/18 07:54 11:43 16:48 WBC RBC Hgb Hct MCV MCH MCHC RDW Plt Count MPV PT INR Sodium Potassium Chloride Carbon Dioxide Anion Gap BUN Creatinine Estimated GFR POC Glucose 143 H 117 H 137 H Random Glucose Calcium Phosphorus Total Bilirubin AST ALT Alkaline Phosphatase Total Protein Albumin 10/07/18 10/08/18 10/08/18 20:06 05:30 05:30 WBC 5.0 RBC 4.01 Hgb 10.4 L Hct 33.4 L MCV 83.1 MCH 26.0 L MCHC 31.3 L RDW 16.4 Plt Count 282 MPV 8.1 PT INR Sodium 139 Potassium 4.5 Chloride 103 Carbon Dioxide 29.3 Anion Gap 7 BUN 52 H Creatinine 3.45 H Estimated GFR 14 L POC Glucose 155 H Random Glucose 101 Calcium 9.5 Phosphorus 4.2 Total Bilirubin 0.3 AST 17 ALT 22 Alkaline Phosphatase 78 Total Protein 7.5 Albumin 3.1 L 10/08/18 10/08/18 05:30 08:41 WBC RBC Hgb Hct MCV MCH MCHC RDW Plt Count MPV PT 18.7 H INR 1.8 Sodium Potassium Chloride Carbon Dioxide Anion Gap BUN Creatinine Estimated GFR POC Glucose 122 H Random Glucose Calcium Phosphorus Total Bilirubin AST ALT Alkaline Phosphatase Total Protein Albumin Result Diagrams: 10/08/18 05:30 10/08/18 05:30 Imaging: Abdomen Ultrasound 09/09/18 00:00 CONCLUSION: 1. Enlarged echogenic liver suggesting fatty infiltration 2. , Gallbladder not visualized Chest CTA 09/09/18 00:00 CONCLUSION: 1. Very limited examination due to patient body habitus. 2. Elongated filling defect in the right pulmonary artery suspicious for pulmonary embolus. Prominent artifact related to patient body habitus is seen through out the central pulmonary arteries limiting the evaluation. The segmental and subsegmental branches cannot be effectively evaluated on this study. Nuclear medicine VQ scan could be performed for further evaluation. 3. Moderate diffuse cardiomegaly. 4. Moderate-sized area of right lower lobe pulmonary consolidation. 5. Bilateral dependent lower lobe atelectasis. Head CT 09/09/18 00:00 CONCLUSION: No acute intracranial findings. . Venous Doppler Study 09/09/18 00:00 CONCLUSION: 1. Negative exam with no evidence of deep venous thrombosis. Central Venous Line 09/23/18 00:00 CONCLUSION: 1. Uncomplicated venous catheter change as above. Chest X-Ray 09/30/18 00:00 CONCLUSION: Borderline cardiomegaly. Procedures: * 09/12/18 - a line, vas-cath placement, HD started * 09/08/18 - intubated * . Assessment and Plan - Disease Oriented Problem List (1) Acute kidney failure (2) Respiratory failure (3) Obesity (4) Pulmonary embolism - Symptom Scale (1) Chronic pain 0-10 Scale: 0 (2) Dyspnea 0-10 Scale: Unable to quantify (3) Debility 0-10 Scale: Unable to quantify Pertinent Non-Medical Issues: Psychosocial: . 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 Has 1 daughter, Avelina. Spiritual: Zoroastrianism valerie. Legal: Patient is currently capacitated to make her own health care decisions. No Living Will. Completed designation of health care surrogate on 09/16/18 naming her daughter Avelina Hadley as HCS. Ethical issues impacting care: No known concerns at this time. Important Contacts: * Avelina Hadley, daughter/ health care surrogate: [phone] * Audra (sp?) Ramana, spouse: [phone] Prognosis: Mrs. Hadley is a 47 year old chronically, critically ill patient with multiple comorbidities now with respiratory, renal and heart failure. Overall prognosis appears poor. Code Status: Full Code Plan: * Decision maker: Patient is capacitated to make her own health care decisions. No Living Will. Completed designation of health care surrogate on 09/16/18 naming her daughter Avelina Hadley as HCS. * FULL CODE -confirmed with pt on 09/16/18 post medical extubation, she desires reintubation if needed. * Goals : Patient desires continued aggressive care including FULL CODE. Patient is willing to continue with aggressive treatment up until she is in a vegetative state. She expresses if she is at a point where she does not know who she is, unable to identify her family, not able to move or eat, she wants to be left to peacefully. Patient is looking forward to going for rehabilitation. Patient is pleased that she most likely will not need long- term care dialysis. * SYMPTOMS: Pain: Currently denying pain. Dyspnea:medically extubated on . Now on room air with O2 saturation in the high 90s. Denies SOB. Debility: due to elevated BMI, recent, respiratory, renal and heart failure. Patient has been ambulating in the room with a walker. Looking forward to being medically discharged to a rehabilitation facility. No new medication recommendations at this time. * Palliative care will continue to follow to assist with symptom management and further clarification of goals of medical treatment as needed. . Attestation Attestation: To help prompt me to consider important information that might be impacting today's encounter and assessment, information from prior notes written by myself or my colleagues may have been "brought forward" into today's note. My signature on this note, however, is an attestation that I personally performed the exam, history, and/or decision-making noted today, and, unless otherwise indicated, the interactions with patient, family, and staff as well as the review of records all occurred today. I also attest that the listed assessment and stated plan reflect my best clinical judgment today based on the combination of historical information, prior notes, and today's exam/ interactions. When time spent is documented, it refers only to time spent today by the signer, or if indicated, combined time spent today by collaborating physician/nurse practitioner.
[2018-10-09] MEDS: Oral Hygiene Kit OROPHARYNG SCH ×4 (01:18→16:22)
[2018-10-09] MEDS: Levothyroxine 50 MCG Tablet PO SCH (05:38)
[2018-10-09 08:10] LABS: Hematocrit 31.9 % (35.0-46.0); Hemoglobin 10.2 gm/dL (11.6-15.3); Mean Corpuscular Hemoglobin 26.3 pg (27.0-34.0); Mean Corpuscular Volume 82.2 fL (80.0-100.0); Mean Platelet Volume 7.9 fL (7.0-11.0); Platelet Count 302 th/mm3 (150-450); Red Blood Count 3.88 mil/mm3 (4.00-5.30); Red Cell Distribution Width 16.6 % (11.6-17.2); White Blood Count 5.9 th/mm3 (4.0-11.0)
[2018-10-09 08:17] LABS: INR 2.2 Ratio; Prothrombin Time 21.8 sec (9.8-11.6)
[2018-10-09 08:37] LABS: Albumin 3.1 g/dL (3.4-5.0); Anion Gap 8 meq/L (5-15); Aspartate Aminotransferase 24 U/L (15-37); Blood Urea Nitrogen 59 mg/dL (7-18); Calcium 9.6 mg/dL (8.5-10.1); Chloride 105 meq/L (98-107); Glomerular Filtration Rate 14 mL/min (>89); Glucose,Random 125 mg/dL (74-106); Potassium 4.7 meq/L (3.5-5.1); Sodium 138 meq/L (136-145)
[2018-10-09 08:38] LABS: Alanine Aminotransferase 27 U/L (10-53); Phosphorus 4.2 mg/dL (2.5-4.9)
[2018-10-09 08:40] LABS: Alkaline Phosphatase 88 U/L (45-117); Total Protein 7.9 g/dL (6.4-8.2)
--- NOTE | 2018-10-09 09:14 | P.PNNP ---
Subjective Interval history: Excellent urine output. Creatinine is slightly higher today. Will not dialyze her today. VasCath can be removed. Physical Exam Vital signs: Vital Signs 10/08/18 10:17 10/08/18 12:00 10/08/18 16:00 Temperature 97.6 F 98.0 F Pulse Rate 92 H 90 Respiratory Rate 14 16 Blood Pressure 135/90 134/92 H Pulse Oximetry 97 97 100 10/08/18 20:00 10/09/18 00:00 10/09/18 04:00 Temperature 97.3 F L 97.1 F L 97.4 F L Pulse Rate 98 H 96 H 95 H Respiratory Rate 17 17 20 Blood Pressure 109/72 90/54 L 109/64 Pulse Oximetry 99 99 95 Intake & Output 10/08/18 10/09/18 10/09/18 18:59 06:59 18:59 Intake Total 580 / 580 480 / 480 Output Total 900 / 900 275 / 275 Balance -320 / -320 205 / 205 Weight 167 kg Intake: Oral 580 / 580 480 / 480 Output: Urine 900 / 900 275 / 275 Other: Date of Last Bowel Movement 10/02/18 10/08/18 # Bowel Movements 1 0 Narrative: GENERAL: morbidly obese. SKIN: Warm and dry. No rash. Right jugular Vas-Cath, dry and intact dressing. HEENT: Normocephalic. Atraumatic. Pupils equal and round. Mucous membranes pink and moist. CARDIOVASCULAR: Regular rate and rhythm. No murmur appreciated. RESPIRATORY: No accessory muscle use. Breath sounds equal bilaterally. GASTROINTESTINAL: Abdomen soft, non-tender, nondistended. MUSCULOSKELETAL: No obvious deformities. Extremities without clubbing, cyanosis , or edema. NEUROLOGICAL: Awake and alert. No focal deficits. M - Urinary Catheter Management Indwelling Urethral Catheter Cath placed during this visit: yes, but has since been removed by the nurse Reason for continuing: Hourly intake/output Insertion date: 09/08/18 Insertion time: 22:52 Removal date: 09/17/18 Removal time: 09:10 Assessment and Plan - Assessment (1) Acute kidney failure Code(s): N17.9 - Acute kidney failure, unspecified Status: Acute Plan: Could have developed contrast nephropathy after CTA. Has suffered ATN. Required dialysis for a prolonged period of time, but urine output has improved. Creatinine is slightly higher today, but will defer dialysis. Repeat labs tomorrow. If renal function is stable, she can be discharged from renal standpoint. Monitor urine output. Avoid nephrotoxic agents. (2) Respiratory failure Code(s): J96.90 - Respiratory failure, unspecified, unspecified whether with hypoxia or hypercapnia Status: Acute Plan: resolved. (3) Obesity Code(s): E66.9 - Obesity, unspecified Status: Acute Qualifiers: Obesity classification: adult class 3 (BMI >= 40) Plan: patient has obesity-hypoventilation syndrome. (4) Pulmonary embolism Code(s): I26.99 - Other pulmonary embolism without acute cor pulmonale Status : Acute Plan: On Coumadin.
[2018-10-09] MEDS: Pregabalin 25 MG Capsule PO SCH ×2 (09:24→21:06)
[2018-10-09] MEDS: Senna/Docusate Sodium 8.6/50 MG Tablet PO SCH ×2 (09:24→21:06)
[2018-10-09] MEDS: Insulin NovoLIN Regular Correctional Sugar Inj SQ SCH ×4 (09:25→21:06)
[2018-10-09] MEDS: Chlorhexidine 0.12% Oral Kit 15 ML UDC OROPHARYNG SCH ×2 (09:25→21:02)
[2018-10-09] MEDS: Nystatin 100,000 UNITS/GM Powder 15 GM Bottle TOPICAL SCH ×2 (09:27→21:07)
--- NOTE | 2018-10-09 11:02 | P.PN ---
Subjective Interval history: Follow-up visit for acute renal failure and PE. Patient seen and examined sitting up in chair in no acute distress. Reports she was seen by field service manager this morning and will not be cleared for discharge today. She continues to make urine and denies any fevers, chills, nausea, vomiting or diarrhea. Understands precautions regarding ongoing monitoring of her kidneys. Physical Exam Vital signs: Vital Signs 10/08/18 12:00 10/08/18 16:00 10/08/18 20:00 Temperature 97.6 F 98.0 F 97.3 F L Pulse Rate 92 H 90 98 H Respiratory Rate 14 16 17 Blood Pressure 135/90 134/92 H 109/72 Pulse Oximetry 97 100 99 10/09/18 00:00 10/09/18 04:00 10/09/18 09:36 Temperature 97.1 F L 97.4 F L Pulse Rate 96 H 95 H Respiratory Rate 17 20 Blood Pressure 90/54 L 109/64 Pulse Oximetry 99 95 95 Intake & Output 10/08/18 10/09/18 10/09/18 18:59 06:59 18:59 Intake Total 580 / 580 480 / 480 Output Total 900 / 900 275 / 275 Balance -320 / -320 205 / 205 Weight 167 kg Intake: Oral 580 / 580 480 / 480 Output: Urine 900 / 900 275 / 275 Other: Date of Last Bowel Movement 10/02/18 10/08/18 # Bowel Movements 1 0 Narrative: GENERAL: morbidly obese. SKIN: Warm and dry. No rash. Right jugular Vas-Cath, dry and intact dressing. HEENT: Normocephalic. Atraumatic. Pupils equal and round. Mucous membranes pink and moist. CARDIOVASCULAR: Regular rate and rhythm. No murmur appreciated. RESPIRATORY: No accessory muscle use. Breath sounds equal bilaterally. GASTROINTESTINAL: Abdomen soft, non-tender, nondistended. MUSCULOSKELETAL: No obvious deformities. Extremities without clubbing, cyanosis , or edema. NEUROLOGICAL: Awake and alert. No focal deficits. M - Urinary Catheter Management Indwelling Urethral Catheter Cath placed during this visit: yes, but has since been removed by the nurse Reason for continuing: Hourly intake/output Insertion date: 09/08/18 Insertion time: 22:52 Removal date: 09/17/18 Removal time: 09:10 Results - Labs CBC & Chem 7: 10/09/18 07:49 10/09/18 07:49 Laboratory Results - last 24 hr 10/08/18 10/08/18 10/08/18 12:00 16:34 20:13 WBC RBC Hgb Hct MCV MCH MCHC RDW Plt Count MPV PT INR Sodium Potassium Chloride Carbon Dioxide Anion Gap BUN Creatinine Estimated GFR POC Glucose 112 H 124 H 164 H Random Glucose Calcium Phosphorus Total Bilirubin AST ALT Alkaline Phosphatase Total Protein Albumin 10/09/18 10/09/18 10/09/18 07:40 07:49 07:49 WBC 5.9 RBC 3.88 L Hgb 10.2 L Hct 31.9 L MCV 82.2 MCH 26.3 L MCHC 32.0 RDW 16.6 Plt Count 302 MPV 7.9 PT INR Sodium 138 Potassium 4.7 Chloride 105 Carbon Dioxide 25.0 Anion Gap 8 BUN 59 H Creatinine 3.52 H Estimated GFR 14 L POC Glucose 122 H Random Glucose 125 H Calcium 9.6 Phosphorus 4.2 Total Bilirubin 0.2 AST 24 ALT 27 Alkaline Phosphatase 88 Total Protein 7.9 Albumin 3.1 L 10/09/18 07:49 WBC RBC Hgb Hct MCV MCH MCHC RDW Plt Count MPV PT 21.8 H INR 2.2 Sodium Potassium Chloride Carbon Dioxide Anion Gap BUN Creatinine Estimated GFR POC Glucose Random Glucose Calcium Phosphorus Total Bilirubin AST ALT Alkaline Phosphatase Total Protein Albumin - Procedures 09/26/18right IJ Vas-Cath exchanged Assessment and Plan - Assessment (1) CHF (congestive heart failure) Code(s): I50.9 - Heart failure, unspecified Status: Acute (2) Cardiomyopathy Code(s): I42.9 - Cardiomyopathy, unspecified Status: Acute (3) Acute kidney failure Code(s): N17.9 - Acute kidney failure, unspecified Status: Acute (4) Respiratory failure Code(s): J96.90 - Respiratory failure, unspecified, unspecified whether with hypoxia or hypercapnia Status: Acute (5) Obesity Code(s): E66.9 - Obesity, unspecified Status: Acute - Plan 7-year-old female with a medical history significant for PE, respiratory failure , LEIDA on hemodialysis. Patient was initially brought by EMS due to respiratory failure and unresponsiveness. She underwent a trial of BiPAP but failed and was ultimately intubated and transferred to critical care. She was subsequently extubated during her hospital course, was found to have paroxysmal atrial fibrillation. Cardiology saw and evaluated the patient and was transitioned to Coumadin. Patient with renal failure and was started on hemodialysis by nephrology. Hospital course also complicated by PE. Respiratory failure Pulmonary embolism identified on CTA -Status post extubation on 09/16 -Pulmonology is following: on CPAP at night -Continue on Coumadin -INR improving 2.2 today, pharmacy is dosing. Daily INRs -O2 sat currently stable on room air Acute renal failure, possibly due to contrast from CTA -Creatinine trended up to 10.41 -HD initiated on 09/12 last HD 10/07 -Nephrology following, appreciate assistance -Creatinine slightly increased this morning to 3.52, nephrology okay to discontinue Vas-Cath, if renal function stable can be discharged from nephrology standpoint tomorrow. - Urine output improved. - Possible DC tomorrow depending on labs in the a.m. Community-acquired pneumonia, sepsis criteria on admission Patient is status post course of Zyvox -Blood culture, urine cultures, sputum culture negative to date Systolic heart failure -Status post milrinone on 09/13-09/18 to maintain cardiac index -Echo 09/09 was suboptimal due to patient habitus, left ventricular function appears severely reduced, global hypokinesis. -Cardiology evaluated during her stay Hypertension -Was on Coreg, patient with intermittent low blood pressures and Coreg has been held -BP fluctuates, continue to monitor Diabetes type 2 -Accu-Cheks, sliding scale Hypothyroidism -Continue patient's Synthroid Peripheral neuropathy -Continue patient's Lyrica 75 mg twice daily UDS: +cocaine DVT prophylaxis: on Coumadin Palliative care is following Discussed Condition With: Patient Discharge Planning: DC to SNF pending renal function in the a.m. (5) Obesity Qualifiers: Obesity classification: adult class 3 (BMI >= 40)
--- NOTE | 2018-10-09 13:29 | P.PNPAL ---
Reason for Visit Reason for visit: a. To assist with evaluation and management of symptoms including: dyspnea, pain, debility. b. To assist medical decision maker(s) with: better understanding of current medical conditions; weighing benefits/burdens of medical treatment options; making medical treatment decisions. Subjective Subjective/Interval History: Follow-up medically necessary for symptom management and patient support. Patient is in her room sitting up in a recliner, sleeping. Arouses easily. Alert, oriented to self, place and situation. Patient reports that she continues to avoid large amounts of urine. She states that nephrology has notified her that she will not be discharged to rehab today due to slight increase of her creatinine. Patient denies pain and shortness of breath. Signs stable. Laboratory workup revealing sodium 138, potassium 4.7, BUN/creatinine 59/3.52. Case discussed with bedside RN. . Family/Friend Interactions: No family at bedside. . Advance Directives Living Will: Never completed Health Care Surrogate: Copy in medical record Durable Power of Insole Department Worker: Never completed Health Care Surrogate Name and Number: Avelina PASCUAL, daughter: [phone] Documented care wishes:: No Living Will. Completed designation of health care surrogate on 09/16/18 naming her daughter Avelina Hadley as [facility]. . Objective Vital Signs: Vital Signs 10/08/18 16:00 10/08/18 20:00 10/09/18 00:00 Temperature 98.0 F 97.3 F L 97.1 F L Pulse Rate 90 98 H 96 H Respiratory Rate 16 17 17 Blood Pressure 134/92 H 109/72 90/54 L Pulse Oximetry 100 99 99 10/09/18 04:00 10/09/18 08:00 10/09/18 09:36 Temperature 97.4 F L 98.3 F Pulse Rate 95 H 96 H Respiratory Rate 20 20 Blood Pressure 109/64 115/56 L Pulse Oximetry 95 96 95 Intake & Output 10/08/18 10/09/18 10/09/18 18:59 06:59 18:59 Intake Total 580 / 580 480 / 480 Output Total 900 / 900 275 / 275 Balance -320 / -320 205 / 205 Weight 167 kg Intake: Oral 580 / 580 480 / 480 Output: Urine 900 / 900 275 / 275 Other: Date of Last Bowel Movement 10/02/18 10/08/1810/09/19 # Bowel Movements 1 0 Physical Exam: CONSTITUTIONAL/GENERAL: This is an overweight female, sitting up in a chair in no acute distress. TUBES/LINES/DRAINS: vas-cath, PIV. Bariatric bed. SKIN: No jaundice, rashes, or lesions. Ecchymoses on upper extremities. No wounds seen anteriorly. Normothermic. EYES: pupils equal and reactive. ENT: hearing adequate. Nose without bleeding or purulent drainage. Dry oral mucosa. CARDIOVASCULAR: Distant heart sounds. S1, S2 normal. No JVD. RESPIRATORY/CHEST: Mildly labored respirations. Clear breath sounds. Remains on room air. GASTROINTESTINAL: Abdomen protuberant, soft, nondistended. No guarding. Positive bowel sounds GENITOURINARY: Without palpable bladder distension. MUSCULOSKELETAL: Bilateral lower extremities with edema. NEUROLOGICAL: Sleeping in a recliner, easily arousable. oriented to self, place and situation. Follows commands. Speech clear. PSYCHIATRIC: Calm. Diagnostic Tests Laboratory: Laboratory Results - last 72 hr 10/06/18 10/07/18 10/07/18 19:34 06:13 06:13 WBC 6.7 RBC 4.10 Hgb 10.8 L Hct 33.6 L MCV 82.1 MCH 26.3 L MCHC 32.0 RDW 17.0 Plt Count 307 MPV 8.3 PT 15.5 H INR 1.5 Sodium Potassium Chloride Carbon Dioxide Anion Gap BUN Creatinine Estimated GFR POC Glucose 145 H Random Glucose Calcium Phosphorus Total Bilirubin AST ALT Alkaline Phosphatase Total Protein Albumin 10/07/18 10/07/18 10/07/18 06:13 07:54 11:43 WBC RBC Hgb Hct MCV MCH MCHC RDW Plt Count MPV PT INR Sodium 137 Potassium 4.4 Chloride 102 Carbon Dioxide 26.3 Anion Gap 9 BUN 75 H Creatinine 4.77 H Estimated GFR 10 L POC Glucose 143 H 117 H Random Glucose 107 H Calcium 9.5 Phosphorus Total Bilirubin 0.2 AST 19 ALT 21 Alkaline Phosphatase 87 Total Protein 7.9 Albumin 3.3 L 10/07/18 10/07/18 10/08/18 16:48 20:06 05:30 WBC 5.0 RBC 4.01 Hgb 10.4 L Hct 33.4 L MCV 83.1 MCH 26.0 L MCHC 31.3 L RDW 16.4 Plt Count 282 MPV 8.1 PT INR Sodium Potassium Chloride Carbon Dioxide Anion Gap BUN Creatinine Estimated GFR POC Glucose 137 H 155 H Random Glucose Calcium Phosphorus Total Bilirubin AST ALT Alkaline Phosphatase Total Protein Albumin 10/08/18 10/08/18 10/08/18 05:30 05:30 08:41 WBC RBC Hgb Hct MCV MCH MCHC RDW Plt Count MPV PT 18.7 H INR 1.8 Sodium 139 Potassium 4.5 Chloride 103 Carbon Dioxide 29.3 Anion Gap 7 BUN 52 H Creatinine 3.45 H Estimated GFR 14 L POC Glucose 122 H Random Glucose 101 Calcium 9.5 Phosphorus 4.2 Total Bilirubin 0.3 AST 17 ALT 22 Alkaline Phosphatase 78 Total Protein 7.5 Albumin 3.1 L 10/08/18 10/08/18 10/08/18 12:00 16:34 20:13 WBC RBC Hgb Hct MCV MCH MCHC RDW Plt Count MPV PT INR Sodium Potassium Chloride Carbon Dioxide Anion Gap BUN Creatinine Estimated GFR POC Glucose 112 H 124 H 164 H Random Glucose Calcium Phosphorus Total Bilirubin AST ALT Alkaline Phosphatase Total Protein Albumin 10/09/18 10/09/18 10/09/18 07:40 07:49 07:49 WBC 5.9 RBC 3.88 L Hgb 10.2 L Hct 31.9 L MCV 82.2 MCH 26.3 L MCHC 32.0 RDW 16.6 Plt Count 302 MPV 7.9 PT INR Sodium 138 Potassium 4.7 Chloride 105 Carbon Dioxide 25.0 Anion Gap 8 BUN 59 H Creatinine 3.52 H Estimated GFR 14 L POC Glucose 122 H Random Glucose 125 H Calcium 9.6 Phosphorus 4.2 Total Bilirubin 0.2 AST 24 ALT 27 Alkaline Phosphatase 88 Total Protein 7.9 Albumin 3.1 L 10/09/18 07:49 WBC RBC Hgb Hct MCV MCH MCHC RDW Plt Count MPV PT 21.8 H INR 2.2 Sodium Potassium Chloride Carbon Dioxide Anion Gap BUN Creatinine Estimated GFR POC Glucose Random Glucose Calcium Phosphorus Total Bilirubin AST ALT Alkaline Phosphatase Total Protein Albumin Result Diagrams: 10/09/18 07:49 10/09/18 07:49 Imaging: Abdomen Ultrasound 09/09/18 00:00 CONCLUSION: 1. Enlarged echogenic liver suggesting fatty infiltration 2. , Gallbladder not visualized Chest CTA 09/09/18 00:00 CONCLUSION: 1. Very limited examination due to patient body habitus. 2. Elongated filling defect in the right pulmonary artery suspicious for pulmonary embolus. Prominent artifact related to patient body habitus is seen through out the central pulmonary arteries limiting the evaluation. The segmental and subsegmental branches cannot be effectively evaluated on this study. Nuclear medicine VQ scan could be performed for further evaluation. 3. Moderate diffuse cardiomegaly. 4. Moderate-sized area of right lower lobe pulmonary consolidation. 5. Bilateral dependent lower lobe atelectasis. Head CT 09/09/18 00:00 CONCLUSION: No acute intracranial findings. . Venous Doppler Study 09/09/18 00:00 CONCLUSION: 1. Negative exam with no evidence of deep venous thrombosis. Central Venous Line 09/23/18 00:00 CONCLUSION: 1. Uncomplicated venous catheter change as above. Chest X-Ray 09/30/18 00:00 CONCLUSION: Borderline cardiomegaly. Procedures: * 09/12/18 - a line, vas-cath placement, HD started * 09/08/18 - intubated * . Assessment and Plan - Disease Oriented Problem List (1) Acute kidney failure (2) Respiratory failure (3) Obesity (4) Pulmonary embolism - Symptom Scale (2) Dyspnea 0-10 Scale: Unable to quantify (3) Debility 0-10 Scale: Unable to quantify Pertinent Non-Medical Issues: Psychosocial: . 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 Has 1 daughter, Avelina. Spiritual: [employer]. Legal: Patient is currently capacitated to make her own health care decisions. No Living Will. Completed designation of health care surrogate on 09/16/18 naming her daughter Avelina Hadley as HCS. Ethical issues impacting care: No known concerns at this time. Important Contacts: * Avelina Hadley, daughter/ health care surrogate: [phone] * Audra (sp?) Boles, spouse: [phone] Prognosis: Mrs. Hadley is a 47 year old chronically, critically ill patient with multiple comorbidities now with respiratory, renal and heart failure. Overall prognosis appears poor. Code Status: Full Code Plan: * Decision maker: Patient is capacitated to make her own health care decisions. No Living Will. Completed designation of health care surrogate on 09/16/18 naming her daughter Avelina Hadley as HCS. * FULL CODE -confirmed with pt on 09/16/18 post medical extubation, she desires reintubation if needed. * Goals : Patient desires continued aggressive care including FULL CODE. Patient is willing to continue with aggressive treatment up until she is in a vegetative state. She expresses if she is at a point where she does not know who she is, unable to identify her family, not able to move or eat, she wants to be left to peacefully. Patient is looking forward to going for rehabilitation. Patient is pleased that she most likely will not need long- term care dialysis. * SYMPTOMS: Pain: Currently denying pain. Dyspnea:medically extubated on . Now on room air with O2 saturation in the high 90s. Denies SOB. Debility: due to elevated BMI, recent, respiratory, renal and heart failure. Patient has been ambulating in the room with a walker. Looking forward to being medically discharged to a rehabilitation facility. No new medication recommendations at this time. * Palliative care will continue to follow to assist with symptom management and further clarification of goals of medical treatment as needed. . Attestation Attestation: To help prompt me to consider important information that might be impacting today's encounter and assessment, information from prior notes written by myself or my colleagues may have been "brought forward" into today's note. My signature on this note, however, is an attestation that I personally performed the exam, history, and/or decision-making noted today, and, unless otherwise indicated, the interactions with patient, family, and staff as well as the review of records all occurred today. I also attest that the listed assessment and stated plan reflect my best clinical judgment today based on the combination of historical information, prior notes, and today's exam/ interactions. When time spent is documented, it refers only to time spent today by the signer, or if indicated, combined time spent today by collaborating physician/nurse practitioner.
--- NOTE | 2018-10-09 19:18 | P.PN ---
Subjective Interval history: Up in chair and eating lunch. Off oxygen saturation 96. Doing better with physical therapy. Off dialysis and making urine. Renal functions improving. Physical Exam Vital signs: Vital Signs 10/08/18 20:00 10/09/18 00:00 10/09/18 04:00 Temperature 97.3 F L 97.1 F L 97.4 F L Pulse Rate 98 H 96 H 95 H Respiratory Rate 17 17 20 Blood Pressure 109/72 90/54 L 109/64 Pulse Oximetry 99 99 95 10/09/18 08:00 10/09/18 09:36 10/09/18 12:00 Temperature 98.3 F Pulse Rate 96 H 103 H Respiratory Rate 20 Blood Pressure 115/56 L Pulse Oximetry 96 95 10/09/18 16:00 Temperature Pulse Rate 93 H Respiratory Rate Blood Pressure Pulse Oximetry Intake & Output 10/09/18 10/09/18 10/10/18 06:59 18:59 06:59 Intake Total 480 / 480 Output Total 275 / 275 Balance 205 / 205 Weight 167 kg Intake: Oral 480 / 480 Output: Urine 275 / 275 Other: Date of Last Bowel Movement 10/08/18 10/09/18 # Bowel Movements 0 Narrative: GENERAL: morbidly obese. Middle-aged -Malagasy female alert, no distress SKIN: Warm and dry. No rash. Right jugular Vas-Cath, dry and intact dressing. HEENT: Normocephalic. Atraumatic. Pupils equal and round. Mucous membranes pink and moist. CARDIOVASCULAR: Regular rate and rhythm. No murmur appreciated. RESPIRATORY: No accessory muscle use. Decreased breath sounds at bases and breath sounds equal bilaterally. GASTROINTESTINAL: Abdomen soft, non-tender, nondistended. MUSCULOSKELETAL: No obvious deformities. Extremities without clubbing, cyanosis , but with mild edema. NEUROLOGICAL: Awake and alert. No focal deficits. M - Urinary Catheter Management Indwelling Urethral Catheter Cath placed during this visit: yes, but has since been removed by the nurse Reason for continuing: Hourly intake/output Insertion date: 09/08/18 Insertion time: 22:52 Removal date: 09/17/18 Removal time: 09:10 Results - Labs CBC & Chem 7: 10/09/18 07:49 10/09/18 07:49 Laboratory Results - last 24 hr 10/08/18 10/09/18 10/09/18 20:13 07:40 07:49 WBC RBC Hgb Hct MCV MCH MCHC RDW Plt Count MPV PT INR Sodium 138 Potassium 4.7 Chloride 105 Carbon Dioxide 25.0 Anion Gap 8 BUN 59 H Creatinine 3.52 H Estimated GFR 14 L POC Glucose 164 H 122 H Random Glucose 125 H Calcium 9.6 Phosphorus 4.2 Total Bilirubin 0.2 AST 24 ALT 27 Alkaline Phosphatase 88 Total Protein 7.9 Albumin 3.1 L 10/09/18 10/09/18 10/09/18 07:49 07:49 13:15 WBC 5.9 RBC 3.88 L Hgb 10.2 L Hct 31.9 L MCV 82.2 MCH 26.3 L MCHC 32.0 RDW 16.6 Plt Count 302 MPV 7.9 PT 21.8 H INR 2.2 Sodium Potassium Chloride Carbon Dioxide Anion Gap BUN Creatinine Estimated GFR POC Glucose 166 H Random Glucose Calcium Phosphorus Total Bilirubin AST ALT Alkaline Phosphatase Total Protein Albumin 10/09/18 16:25 WBC RBC Hgb Hct MCV MCH MCHC RDW Plt Count MPV PT INR Sodium Potassium Chloride Carbon Dioxide Anion Gap BUN Creatinine Estimated GFR POC Glucose 86 Random Glucose Calcium Phosphorus Total Bilirubin AST ALT Alkaline Phosphatase Total Protein Albumin - Procedures 09/26/18right IJ Vas-Cath exchanged Assessment and Plan - Assessment (1) Sleep apnea treated with nocturnal BiPAP Code(s): G47.30 - Sleep apnea, unspecified Status: Acute (2) Pneumonia Code(s): J18.9 - Pneumonia, unspecified organism Status: Acute (3) Acute kidney failure Code(s): N17.9 - Acute kidney failure, unspecified Status: Acute (4) Respiratory failure Code(s): J96.90 - Respiratory failure, unspecified, unspecified whether with hypoxia or hypercapnia Status: Acute (5) Obesity Code(s): E66.9 - Obesity, unspecified Status: Acute (6) Pulmonary embolism Code(s): I26.99 - Other pulmonary embolism without acute cor pulmonale Status : Acute (7) Chronic pain Code(s): G89.29 - Other chronic pain Status: Acute (8) Dyspnea Code(s): R06.00 - Dyspnea, unspecified Status: Acute (9) Debility Code(s): R53.81 - Other malaise Status: Acute (10) CHF (congestive heart failure) Code(s): I50.9 - Heart failure, unspecified Status: Acute - Plan 1. Chest x-ray in a.m. 2. IS Q3h bedside 3. CBC BMP 4. Continue CPAP at HS daily 5. Rehab placement 6. Continue PT and OT 7. Continue anticoagulants Coumadin 5 mg. 8. Albuterol HFA, 2 puffs TID PRN (5) Obesity Qualifiers: Obesity classification: adult class 3 (BMI >= 40)
[2018-10-10] MEDS: Oral Hygiene Kit OROPHARYNG SCH ×2 (00:33→03:48)
[2018-10-10 03:48] LABS: Hematocrit 30.2 % (35.0-46.0); Hemoglobin 9.5 gm/dL (11.6-15.3); Mean Corpuscular HGB Conc 31.4 % (32.0-36.0); Mean Corpuscular Hemoglobin 25.9 pg (27.0-34.0); Mean Corpuscular Volume 82.4 fL (80.0-100.0); Platelet Count 282 th/mm3 (150-450); Red Blood Count 3.66 mil/mm3 (4.00-5.30); Red Cell Distribution Width 16.8 % (11.6-17.2); White Blood Count 8.5 th/mm3 (4.0-11.0)
[2018-10-10 03:57] LABS: INR 2.2 Ratio; Prothrombin Time 22.1 sec (9.8-11.6)
[2018-10-10 04:09] LABS: Alanine Aminotransferase 35 U/L (10-53); Albumin 2.9 g/dL (3.4-5.0); Anion Gap 7 meq/L (5-15); Aspartate Aminotransferase 21 U/L (15-37); Blood Urea Nitrogen 64 mg/dL (7-18); Calcium 9.1 mg/dL (8.5-10.1); Carbon Dioxide 25.5 meq/L (21.0-32.0); Chloride 108 meq/L (98-107); Glomerular Filtration Rate 14 mL/min (>89); Glucose,Random 134 mg/dL (74-106); Phosphorus 3.9 mg/dL (2.5-4.9); Potassium 4.7 meq/L (3.5-5.1); Sodium 140 meq/L (136-145)
[2018-10-10 04:11] LABS: Alkaline Phosphatase 91 U/L (45-117); Total Protein 7.6 g/dL (6.4-8.2)
[2018-10-10] MEDS: Levothyroxine 50 MCG Tablet PO SCH (05:21)
--- NOTE | 2018-10-10 07:44 | XR ---
EXAM DATE: 10/10/2018 7:08 AM EST AGE/SEX: 47 years / Female INDICATIONS: Very short of breath, weak, evaluate pulmonary edema CLINICAL DATA: This is the patient's subsequent encounter. Patient reports that signs and symptoms h ave been present for 3 weeks and indicates a pain score of Nonresponsive. MEDICAL/SURGICAL HISTORY: Congestive heart failure. renal failure, dialysis, atrial flutter No n-responsive. COMPARISON: [facility] – [place], CHEST 1V SINGLE AP, 09/30/2018. . FINDINGS: A single AP view of the chest demonstrates cardiomegaly with increase in pulmonary vascularity and sl ight interstitial prominence. There is limited evaluation of the left lung base. The cardiomediastina l contours are unremarkable. Osseous structures are intact. CONCLUSION: Cardiomegaly with interstitial edema Electronically signed by: Garrison Vogel MD Board Certified Radiologist 10/10/2018 7:43 AM EST
[2018-10-10] MEDS: Chlorhexidine 0.12% Oral Kit 15 ML UDC OROPHARYNG SCH (08:03)
[2018-10-10] MEDS: Insulin NovoLIN Regular Correctional Sugar Inj SQ SCH (08:03)
[2018-10-10] MEDS: Pregabalin 25 MG Capsule PO SCH (08:04)
[2018-10-10] MEDS: Senna/Docusate Sodium 8.6/50 MG Tablet PO SCH (08:04)
[2018-10-10] MEDS: Nystatin 100,000 UNITS/GM Powder 15 GM Bottle TOPICAL SCH (08:06)
[2018-10-10 08:25] VITALS: O2SAT 97
--- NOTE | 2018-10-10 08:49 | P.DS ---
Date of admission: 09/09/18 00:06 Primary care physician: UNKNOWN Attending physician on discharge: Ann-Marie Jimenez Anticipated date of discharge: 10/10/18 Brief History from admission: Middle-aged morbidly obese female was brought in emergently department by EMS due to respiratory failure and unresponsiveness. She was brought in being bagged by BV. Patient was a GCS of 3 upon arrival and hence in no condition to give any history. As per EMS the call went out as shortness of breath while patient got into the car. When they arrived she was in severe respiratory distress. They put her on BiPAP but shortly patient started to lose consciousness with agonal respirations. Family was at the scene and informed EMS that she has history of congestive heart failure. Patient was tachycardic upon arrival with heart rate in 170s. It appeared to be irregularly irregular on the monitor. She was immediately intubated by ED attending with improvement in her heart rate. There is no additional history available. Per report, the family admits the patient has been taking a lot of medications but they are unaware of the names or reasons. DS: Diagnosis - Discharge Diagnosis (1) CHF (congestive heart failure) Status: Acute (2) Cardiomyopathy Status: Acute (3) Acute kidney failure Status: Acute (4) Respiratory failure Status: Acute (5) Obesity Status: Acute DS: Medications - Discharge Medications Prescriptions: bumetanide 1 mg PO DAILY #30 tab carvedilol [Coreg] 3.125 mg PO BID #60 tab cyclobenzaprine 10 mg PO Q8H PRN #90 tab PRN Reason: Spasm insulin regular human [Novolin R Regular U-100 Insuln] 0 units SUBCUT ACHS #15 ml ipratropium-albuterol 1 amp NEB Q2HR NEB PRN #1 box PRN Reason: Wheezing levothyroxine [Synthroid] 50 mcg PO DAILY@0600 #30 tab nitroglycerin [Nitrostat] 0.4 mg SUBLINGUAL Q5M PRN #1 vial PRN Reason: Chest Pain nystatin [Nystop] 1 applicatio TOPICAL BID #60 g pravastatin 40 mg PO HS #30 tab pregabalin [Lyrica] 50 mg PO BID #6 cap sennosides-docusate sodium [Senna Plus] 1 tab PO BID #60 tab sevelamer carbonate [Renvela] 1,600 mg PO TIDAC #90 tab warfarin [Coumadin] 5 mg PO DAILY #15 tab DS: Summary Hospital Course: 47-year-old female with PMH significant for HTN, DM, COPD, HLD, VIVIANA, CHF, diabetes mellitus, and obesity who presented to the emergency department on via [facility] with severe respiratory distress requiring intubation and mechanical ventilation. On arrival patient was also to be tachycardic with heart rate in the 170s and irregular. Patient remained indolent initially treated with broad-spectrum antibiotics. Nephrology followed patient during her stay due to acute renal failure and placed on Bumex drip. Acute renal failure was thought to be secondary to nephropathy after CT which revealed pulmonary embolism. Cardiology also evaluated patient during her stay and echo revealed severe LV dysfunction. Patient was treated with Coumadin for pulmonary embolism. Subsequently extubated on 09/16 with pulmonary services following. She required hemodialysis which was initiated on 09/12. Patient's renal function improved and her last dialysis treatment was on 10/07. Patient also began making adequate amounts of urine. Completed treatment of IV Zyvox for pneumonia. Her respiratory status was stable on room air. Renal function at the day of discharge with a creatinine of 3.48, BUN 64 and GFR 14. Chest x- ray today showed cardiomegaly with interstitial edema. Discussed with nephrology and pulmonary services. Patient was restarted on Bumex 1 mg daily, to receive 1 mg IV Bumex prior to discharge. INR on day of discharge 2.2, patient will be discharged to [facility] nursing and rehab. She is seen and examined resting in bed comfortably in no acute distress, does not report any acute events overnight or this morning. States she is ready to go to [facility]. - Time Spent with Patient Total time spent providing and/or coordinating discharge services: Greater than 30 minutes - Quality: VTE Deep Vein Thrombosis/Pulmonary Embolism Present on Admission: Yes Exam Vital signs: Vital Signs 10/09/18 09:36 10/09/18 12:00 10/09/18 16:00 Temperature 97.7 F 98.1 F Pulse Rate 99 H 105 H Respiratory Rate 20 20 Blood Pressure 122/58 L 126/54 L Pulse Oximetry 95 96 98 10/09/18 20:00 10/09/18 23:20 10/10/18 00:00 Temperature 97.9 F 97.5 F L Pulse Rate 92 H 96 H 97 H Respiratory Rate 20 18 Blood Pressure 128/62 114/72 Pulse Oximetry 96 99 10/10/18 04:00 10/10/18 08:00 Temperature 97.6 F Pulse Rate 95 H Respiratory Rate 18 20 Blood Pressure 105/67 Pulse Oximetry 100 97 Intake & Output 10/09/18 10/10/18 10/10/18 18:59 06:59 18:59 Intake Total 720 / 720 300 / 300 Output Total 550 / 550 Balance 170 / 170 300 / 300 Weight 173.6 kg Intake: Oral 720 / 720 300 / 300 Output: Urine 550 / 550 Other: # Voids 2 Date of Last Bowel Movement 10/09/18 # Bowel Movements 1 0 Results Procedures completed during hospitalization: 09/26/18right IJ Vas-Cath exchanged Labs on day of discharge: Labs from last 24 hours 10/10/18 10/10/18 10/10/18 07:42 03:30 03:30 WBC 8.5 RBC 3.66 L Hgb 9.5 L Hct 30.2 L MCV 82.4 MCH 25.9 L MCHC 31.4 L RDW 16.8 Plt Count 282 MPV 8.0 PT 22.1 H INR 2.2 Sodium Potassium Chloride Carbon Dioxide Anion Gap BUN Creatinine Estimated GFR POC Glucose 110 Random Glucose Calcium Phosphorus Total Bilirubin AST ALT Alkaline Phosphatase Total Protein Albumin 10/10/18 10/09/18 10/09/18 03:30 21:05 16:25 WBC RBC Hgb Hct MCV MCH MCHC RDW Plt Count MPV PT INR Sodium 140 Potassium 4.7 Chloride 108 H Carbon Dioxide 25.5 Anion Gap 7 BUN 64 H Creatinine 3.48 H Estimated GFR 14 L POC Glucose 122 H 86 Random Glucose 134 H Calcium 9.1 Phosphorus 3.9 Total Bilirubin 0.2 AST 21 ALT 35 Alkaline Phosphatase 91 Total Protein 7.6 Albumin 2.9 L 10/09/18 13:15 WBC RBC Hgb Hct MCV MCH MCHC RDW Plt Count MPV PT INR Sodium Potassium Chloride Carbon Dioxide Anion Gap BUN Creatinine Estimated GFR POC Glucose 166 H Random Glucose Calcium Phosphorus Total Bilirubin AST ALT Alkaline Phosphatase Total Protein Albumin - Impressions ITS Impressions Abdomen Ultrasound 09/09/18 00:00 CONCLUSION: 1. Enlarged echogenic liver suggesting fatty infiltration 2. , Gallbladder not visualized Chest CTA 09/09/18 00:00 CONCLUSION: 1. Very limited examination due to patient body habitus. 2. Elongated filling defect in the right pulmonary artery suspicious for pulmonary embolus. Prominent artifact related to patient body habitus is seen through out the central pulmonary arteries limiting the evaluation. The segmental and subsegmental branches cannot be effectively evaluated on this study. Nuclear medicine VQ scan could be performed for further evaluation. 3. Moderate diffuse cardiomegaly. 4. Moderate-sized area of right lower lobe pulmonary consolidation. 5. Bilateral dependent lower lobe atelectasis. Head CT 09/09/18 00:00 CONCLUSION: No acute intracranial findings. . Venous Doppler Study 09/09/18 00:00 CONCLUSION: 1. Negative exam with no evidence of deep venous thrombosis. Central Venous Line 09/23/18 00:00 CONCLUSION: 1. Uncomplicated venous catheter change as above. Chest X-Ray 10/10/18 00:00 CONCLUSION: Cardiomegaly with interstitial edema Discharge Plan - Discharge Disposition Patient Disposition: 03 Discharge to SNF - Discharge Condition Condition: Good - Discharge Order Discharge Orders: Discharge Order (Routine); Ordered 10/10/18 Ordered By: Sheryl Rogers - Physicians Team Primary Care Provider: UNKNOWN, Attending Provider: Ann-Marie Jimenez Other Providers: Chris Majano MD ; Annetta Law MD ; Vanesa Saeed MD ; [facility] ; [facility] ; Dillan Rich MD ; [facility]
[2018-10-10 09:10] VITALS: BP 106/60; PULSE 96; RESP 22; TEMP 97
--- NOTE | 2018-10-10 10:12 | P.PNNP ---
Subjective Interval history: Patient was seen, no distress, no complaints. Patient's renal function has continued to improve. Patient can be discharged from a renal standpoint. <Venkatesh Bernal - Last Filed: 10/10/18 10:10> Physical Exam Vital signs: Vital Signs 10/09/18 12:00 10/09/18 16:00 10/09/18 20:00 Temperature 97.7 F 98.1 F 97.9 F Pulse Rate 99 H 105 H 92 H Respiratory Rate 20 20 20 Blood Pressure 122/58 L 126/54 L 128/62 Pulse Oximetry 96 98 96 10/09/18 23:20 10/10/18 00:00 10/10/18 04:00 Temperature 97.5 F L 97.6 F Pulse Rate 96 H 97 H 95 H Respiratory Rate 18 18 Blood Pressure 114/72 105/67 Pulse Oximetry 99 100 10/10/18 08:00 Temperature 97 F L Pulse Rate 96 H Respiratory Rate 22 Blood Pressure 106/60 Pulse Oximetry 97 Intake & Output 10/09/18 10/10/18 10/10/18 18:59 06:59 18:59 Intake Total 720 / 720 300 / 300 Output Total 550 / 550 Balance 170 / 170 300 / 300 Weight 173.6 kg Intake: Oral 720 / 720 300 / 300 Output: Urine 550 / 550 Other: # Voids 2 Date of Last Bowel Movement 10/09/18 # Bowel Movements 1 0 - Constitutional no acute distress, obese - Routine HEENT Exam Head: Present: normocephalic Eye: Present: EOMI ENT: Present: mucous membranes moist - Routine Neck Exam Present: trachea midline. Absent: tracheal deviation - Routine Respiratory Exam Absent: accessory muscle use, respiratory distress - Routine Cardiovascular Exam Present: S1, S2 - Routine Abdominal Exam Present: soft. Absent: tenderness - Routine Neurological Exam Present: alert, oriented X3 - Routine Psychiatric Exam Present: normal affect - Urinary Catheter Management Indwelling Urethral Catheter Cath placed during this visit: yes, but has since been removed by the nurse Reason for continuing: Hourly intake/output Insertion date: 09/08/18 Insertion time: 22:52 Removal date: 09/17/18 Removal time: 09:10 <Venkatesh Bernal - Last Filed: 10/10/18 10:10> - Urinary Catheter Management Indwelling Urethral Catheter Cath placed during this visit: no <Chris Majano - Last Filed: 10/11/18 14:50> Assessment and Plan - Assessment (1) Acute kidney failure Code(s): N17.9 - Acute kidney failure, unspecified Status: Acute Plan: Could have developed contrast nephropathy after CTA. Has suffered ATN. Required dialysis for a prolonged period of time, but urine output has improved. Dialysis has been stopped. Patient's renal function has continued to improve. Patient can be discharged from a renal standpoint. (2) Respiratory failure Code(s): J96.90 - Respiratory failure, unspecified, unspecified whether with hypoxia or hypercapnia Status: Acute Plan: resolved. (3) Obesity Code(s): E66.9 - Obesity, unspecified Status: Acute Qualifiers: Obesity classification: adult class 3 (BMI >= 40) Plan: patient has obesity-hypoventilation syndrome. (4) Pulmonary embolism Code(s): I26.99 - Other pulmonary embolism without acute cor pulmonale Status : Acute Plan: On Coumadin. <Venkatesh Bernal - Last Filed: 10/10/18 10:10> - Assessment (1) Acute kidney failure Code(s): N17.9 - Acute kidney failure, unspecified Status: Acute (2) Respiratory failure Code(s): J96.90 - Respiratory failure, unspecified, unspecified whether with hypoxia or hypercapnia Status: Acute (3) Obesity Code(s): E66.9 - Obesity, unspecified Status: Acute Qualifiers: Obesity classification: adult class 3 (BMI >= 40) (4) Pulmonary embolism Code(s): I26.99 - Other pulmonary embolism without acute cor pulmonale Status : Acute - Attending Attestation patient was seen and examined. Agree with above assessment and plan. To be discharged, renal function improved. VasCath has been removed. <Chris Majano - Last Filed: 10/11/18 14:50>
== END 2018-10-10 11:13 | DRG 870 ==
LOC: NEPE 22:36 → EDBD 09-09 00:06 → NEDA 09-09 00:06 → HIMC 09-09 01:20 → N04 09-21 20:03
PROVIDERS: ADMIT Hospitalist; ATTEND Hospitalist
DX: Z79.4 Long term (current) use of insulin; I95.9 Hypotension, unspecified; G89.29 Other chronic pain; J18.9 Pneumonia, unspecified organism; E11.42 Type 2 diabetes mellitus with diabetic polyneuropathy; J98.11 Atelectasis; G93.40 Encephalopathy, unspecified; E66.2 Morbid (severe) obesity with alveolar hypoventilation; Z68.44 Body mass index [BMI] 60.0-69.9, adult; G47.33 Obstructive sleep apnea (adult) (pediatric); R34 Anuria and oliguria; I48.92 Unspecified atrial flutter; N14.1 Nephropathy induced by other drugs, medicaments and biological substances; I26.09 Other pulmonary embolism with acute cor pulmonale; J96.01 Acute respiratory failure with hypoxia; Z88.0 Allergy status to penicillin; Z79.899 Other long term (current) drug therapy; I50.21 Acute systolic (congestive) heart failure; E78.5 Hyperlipidemia, unspecified; R40.2432 Glasgow coma scale score 3-8, at arrival to emergency department; N17.0 Acute kidney failure with tubular necrosis; I11.0 Hypertensive heart disease with heart failure; J96.02 Acute respiratory failure with hypercapnia; J44.9 Chronic obstructive pulmonary disease, unspecified; E87.1 Hypo-osmolality and hyponatremia; F32.9 Major depressive disorder, single episode, unspecified; K59.00 Constipation, unspecified; R00.0 Tachycardia, unspecified; Z90.49 Acquired absence of other specified parts of digestive tract; R74.0 Nonspecific elevation of levels of transaminase and lactic acid dehydrogenase [LDH]; R74.8 Abnormal levels of other serum enzymes; F41.9 Anxiety disorder, unspecified; T50.8X5A Adverse effect of diagnostic agents, initial encounter; Z51.5 Encounter for palliative care; F17.210 Nicotine dependence, cigarettes, uncomplicated; I42.9 Cardiomyopathy, unspecified; E03.9 Hypothyroidism, unspecified; F14.90 Cocaine use, unspecified, uncomplicated; I48.0 Paroxysmal atrial fibrillation; M19.90 Unspecified osteoarthritis, unspecified site; Z79.890 Hormone replacement therapy; A41.9 Sepsis, unspecified organism; Z85.41 Personal history of malignant neoplasm of cervix uteri
CPT/HCPCS: 31500; 36556; 36569; 36600; 51702; 70450; 71010; 71045; 71275; 75998; 76700; 76937; 77001; 80048; 80053; 80069; 80074; 80202; 80307; 81001; 82140; 82805; 82948; 82962; 83735; 84100; 84132; 84443; 84484; 85025; 85027; 85610; 85730; 86850; 86900; 86901; 87040; 87070; 87086; 87205; 87449; 87641; 90765; 90774; 90775; 90784; 90935; 92526; 92610; 93005; 93306; 93308; 93970; 94003; 94640; 94650; 94651; 94657; 94665; 94667; 94668; 96365; 96374; 96375; 97110; 97116; 97163; 97530; 99291; 99292; C1752; C8952; G0195; J0330; J1160; J1170; J1200; J1580; J1644; J1940; J2001; J2020; J2060; J2250; J2260; J2270; J2405; J2543; J2704; J3010; J3370; J3480; J7030; J7040; P9047; Q9967; S0171